=== PATIENT | male | born 1960 | race Caucasian/White ===

== ENCOUNTER 2016-05-26 20:06 | Inpatient (IN) | payer OTHER ==
[2016-05-26 21:12] LABS: Hematocrit 44 % (42-52); Hemoglobin 14.6 g/dl (14.0-18.0); Mean Corpuscular HGB Conc 33 g/dl (31-36); Mean Corpuscular Hemoglobin 32 pg (27-31); Mean Corpuscular Volume 96 fL (80-94); Mean Platelet Volume 9 um3 (7.4-10.4); Red Blood Count 4.54 10^6/ul (4.0-5.4); Red Cell Distribution Width 14 % (10.5-15); White Blood Count 11.5 10^3/ul (3.5-10.8)
[2016-05-26] MEDS ORDERED: Morphine INJ* 2 MG/ML 1 ML CARPUJECT IV PRN (21:13)
[2016-05-26] MEDS ORDERED: Albuterol 2.5 MG/3 ML NEB.SOL* (0.083%) INH PRN (21:13)
[2016-05-26] MEDS ORDERED: Ondansetron INJ* 2 MG/ML VIAL IV PRN (21:13)
[2016-05-26] MEDS ORDERED: Melatonin (NF) 3 MG TAB PO PRN (21:13)
[2016-05-26 21:15] LABS: Comments Flag Yes
[2016-05-26] MEDS ORDERED: NS 0.9% 1000 ML* 1,000 ML IV SCH (21:15)
[2016-05-26 21:16] LABS: Add Diff/Slide Review? Slide Review Added
[2016-05-26 21:27] LABS: Albumin 4.2 g/dL (3.2-5.2); BUN/Creatinine Ratio 35.3 (8-20); Calcium 9.9 mg/dL (8.6-10.3); EGFR African American 62.5 (>60); EGFR Non-African American 48.6 (>60); Globulin 3.6 g/dL (2-4); Potassium 4.2 mmol/L (3.5-5.0); Total Protein 7.8 g/dL (6.4-8.9)
[2016-05-26 21:28] LABS: Troponin I 0.01 ng/mL (<0.04)
--- NOTE | 2016-05-26 22:02 | RAD ---
INDICATION: Short of breath COMPARISON: March 25, 2015 TECHNIQUE: An AP portable view obtained at 2127 hours is submitted. FINDINGS: Bones/Soft Tissues: There are no acute bony findings. Cardiomediastinal: The cardiac silhouette is top normal in size. Lungs: There are no infiltrates. Mild chronic interstitial changes. Pleura: There are no pleural effusions. Other: None IMPRESSION: NO ACTIVE DISEASE.
--- NOTE | 2016-05-26 22:05 | HP ---
H&P (Free Text) History and Physical: PCP: Ted Do MD Date/Time of Evaluation: 05/26/2016 CC: chest pain HPI: Mr Cordon is a 55YO male HX HTN, HLD, DM2, dilated cardiomyopathy, & AFIB who reports working on a ladder last evening using pipe wrenches. He did not feel like he pulled a muscle, overworked, or injured himself. However, last night he experienced severe 20 out of 10 L shoulder and arm pain which kept him up all night despite taking extra doses of his pain medications. Today he has had intermittent dull to sharpish chest pain sometimes substernally, sometimes R -sided. The pain in his L shoulder has persisted and is tremendously worse with any ROM of the L shoulder which is currently very limited. This pain has been radiating into the L chest. Additionally over the past 2 days he has had some SOB and nausea, but he is uncertain if this relates to the chest or shoulder pain. ED evaluation is notable for stable vitals, stable stage 3a CKD, an interval increase in BUN from a baseline in the mid- to high 30s to 53 currently, a lactic acid of 2.6 which appears to be his baseline, a troponin of 0.01, and a BNP of 169. ECG is AFIB rate [address]-T segments in the anterior leads for loss of upwards concavity. However, I doubt this is actually ACS given his continuous L arm pain of ~25h duration and no elevation in troponin. CXR PMedHx dilated cardiomyopathy pericarditis AFIB on warfarin COPD DM2 NEAL on CPAP HTN CKD stg 3a HLD seronegative RA alcohol abuse Allergies Milk Protein Extract [From Spiriva] Adverse Reaction (Mild, Verified 03/25/15 11 :32) lightheaded Tiotropium [From Spiriva] Adverse Reaction (Mild, Verified 03/25/15 11:32) lightheaded Ambulatory Orders Albuterol/Ipratropium INH(NF) [Combivent Inhaler*] 2 puff INH QID 01/21/12 Aliskiren TAB* [Tekturna TAB*] 150 mg PO QAM 01/21/12 Fluticasone NASAL * [Flonase (NF)] 2 spray BOTH NARES DAILY 01/21/12 Folic Acid TAB* [Folvite TAB*] 1 mg PO DAILY 01/21/12 Methotrexate TAB* 15 mg PO WEEKLY 01/21/12 Metolazone TAB* [Zaroxolyn TAB*] 2.5 mg PO DAILY 01/21/12 Metoprolol Tartrate TAB* [Lopressor TAB*] 100 mg PO BID 01/21/12 cloNIDine TAB* [Catapres TAB*] 0.3 mg PO TID 01/21/12 metFORMIN* [Glucophage 500 MG TAB *] 1,000 mg PO BID 01/21/12 Acetaminophen TAB* [Tylenol TAB*] 325 mg PO Q6H PRN 09/30/14 Adalimumab (NF) [Humira Pen (NF)] 40 mg SUBCUT Q14D 09/30/14 Fluticasone HFA 110 mcg(NF) [Flovent HFA 110 mcg(NF)] 2 puff INH BID 09/30/14 Furosemide TAB* [Lasix TAB*] 80 mg PO DAILY 09/30/14 Glimepiride (NF) 4 mg PO BID 09/30/14 Simvastatin TAB(NF) [Zocor 20 MG (NF)] 20 mg PO BEDTIME 09/30/14 Spironolactone TAB* [Aldactone TAB 25 MG*] 50 mg PO BID 09/30/14 Warfarin TAB(*) [Coumadin TAB(*)] 3.75 mg PO SUMOTUTHFRSA 09/30/14 Warfarin TAB(*) [Coumadin TAB(*)] 7.5 mg PO WE 09/30/14 amLODIPine TAB* [Norvasc TAB*] 10 mg PO DAILY 09/30/14 guaiFENesin ER TAB [Mucinex*] 600 mg PO BID 09/30/14 hydrALAZINE TAB* [Apresoline TAB*] 25 mg PO TID 09/30/14 zzInsulin GLARGINE(*) [Lantus(*)] 150 units SUBCUT BEDTIME 09/30/14 Fexofenadine (NF) [Jasmyn (NF)] 60 mg PO BID 05/26/16 Hydroxychloroquine TAB* [Plaquenil TAB*] 200 mg PO BID 05/26/16 Lorazepam [Ativan 0.5 MG TAB] 0.5 mg PO Q6HR PRN 05/26/16 Magnesium Oxide [Magnesium Oxide-] 400 mg PO BID 05/26/16 Mometasone 220 MCG MDI * [Asmanex 220 MCG MDI *] 1 puff INH BID 05/26/16 Oxycodone IR 10 MG(NF) 10 mg PO Q6HR 05/26/16 Polyethylene Glycol 3350* [Miralax*] 17 gm PO DAILY 05/26/16 Triamcinolone 0.1% CREAM (NF) [Kenalog 0.1% Cream (NF)] 1 applic TOPICAL BID 01/02 SocHx: former smoker quit ~10years ago w/ ~70PYHX, rare alcohol now formerly a heavy drinker, no recreational drugs; lives with friends; full code status FamHx: positive for DM & CAD ROS: as above, otherwise reviewed and all were negative Constitutional: NAD, normally developed, morbidly obese white male vitals: Vital Signs Temp 35.5 C 05/26/16 20:09 Pulse 96 05/26/16 21:04 Resp 19 05/26/16 21:04 BP 141/66 05/26/16 21:04 Pulse Ox 96 05/26/16 21:04 Intake & Output 05/25/16 05/26/16 05/26/16 23:59 11:59 23:59 Weight 144.242 kg HEENM: atraumatic; sclera/conjunctiva: non-icteric/clear; hearing: clinically intact; oropharynx: clear, mucosa moist Neck: soft tissue: non-tender; thyroid: normal Pulmonary: clear to auscultation bilaterally, fair aeration, no accessory muscle use CV: RR/RR, normal S1S2, no carotid bruit, no jugular venous distention, 2+ symmetric B radial pulses, non-palpable B DP/PT, no edema, B hand capillary refill is <2 seconds Abdominal: soft, non-distended but protuberant, non-tender, no rebound/guarding/ rigidity, normoactive bowel sounds, no hepatosplenomegaly or masses, no costovertebral angle tenderness Musculoskeletal: general: grossly intact; gait: stable; L shoulder with nearly no ROM 2nd severe pain, no overt deformity Integumental: L mid-forearm distally including hand has blanching erythma without warmth, induration, or open wound Psychiatric orientation: AA&O to PPS affect: mildly anxious mixed with pain mood: cooperative eye contact: good content: reliable responses: timely insight: fair Testing: Lab Results 05/26/16 05/26/16 05/26/16 Range/Units 21:00 21:00 21:00 WBC 11.5 H (3.5-10.8) 10^3/ul RBC 4.54 (4.0-5.4) 10^6/ul Hgb 14.6 (14.0-18.0) g/dl Hct 44 (42-52) % MCV 96 H (80-94) fL MCH 32 H (27-31) pg MCHC 33 (31-36) g/dl RDW 14 (10.5-15) % Plt Count 187 (150-450) 10^3/ul MPV 9 (7.4-10.4) um3 Neut % (Auto) 73.8 (38-83) % Lymph % (Auto) 9.6 L (25-47) % Real % (Auto) 15.0 H (1-9) % Eos % (Auto) 0.8 (0-6) % Baso % (Auto) 0.8 (0-2) % Absolute Neuts (auto) 8.5 H (1.5-7.7) 10^3/ul Absolute Lymphs (auto) 1.1 (1.0-4.8) 10^3/ul Absolute Monos (auto) 1.7 H (0-0.8) 10^3/ul Absolute Eos (auto) 0.1 (0-0.6) 10^3/ul Absolute Basos (auto) 0.1 (0-0.2) 10^3/ul Absolute Nucleated RBC 0.01 10^3/ul Nucleated RBC % 0 INR (Anticoag Therapy) 3.43 H (0.89-1.11) APTT 42.2 H (26.0-36.3) seconds Sodium 131 L (133-145) mmol/L Potassium 4.2 (3.5-5.0) mmol/L Chloride 96 L (101-111) mmol/L Carbon Dioxide 26 (22-32) mmol/L Anion Gap 9 (2-11) mmol/L BUN 53 H (6-24) mg/dL Creatinine 1.50 H (0.67-1.17) mg/dL Est GFR ( Amer) 62.5 (>60) Est GFR (Non-Af Amer) 48.6 (>60) BUN/Creatinine Ratio 35.3 H (8-20) Glucose 259 H (70-100) mg/dL Lactic Acid (0.5-2.0) mmol/L Calcium 9.9 (8.6-10.3) mg/dL Total Bilirubin 1.00 (0.2-1.0) mg/dL AST 13 (13-39) U/L ALT 19 (7-52) U/L Alkaline Phosphatase 48 (34-104) U/L Troponin I 0.01 (<0.04) ng/mL B-Natriuretic Peptide ( - 100) pg/mL Total Protein 7.8 (6.4-8.9) g/dL Albumin 4.2 (3.2-5.2) g/dL Globulin 3.6 (2-4) g/dL Albumin/Globulin Ratio 1.2 (1-3) 05/26/16 05/26/16 Range/Units 21:00 21:00 WBC (3.5-10.8) 10^3/ul RBC (4.0-5.4) 10^6/ul Hgb (14.0-18.0) g/dl Hct (42-52) % MCV (80-94) fL MCH (27-31) pg MCHC (31-36) g/dl RDW (10.5-15) % Plt Count (150-450) 10^3/ul MPV (7.4-10.4) um3 Neut % (Auto) (38-83) % Lymph % (Auto) (25-47) % Real % (Auto) (1-9) % Eos % (Auto) (0-6) % Baso % (Auto) (0-2) % Absolute Neuts (auto) (1.5-7.7) 10^3/ul Absolute Lymphs (auto) (1.0-4.8) 10^3/ul Absolute Monos (auto) (0-0.8) 10^3/ul Absolute Eos (auto) (0-0.6) 10^3/ul Absolute Basos (auto) (0-0.2) 10^3/ul Absolute Nucleated RBC 10^3/ul Nucleated RBC % INR (Anticoag Therapy) (0.89-1.11) APTT (26.0-36.3) seconds Sodium (133-145) mmol/L Potassium (3.5-5.0) mmol/L Chloride (101-111) mmol/L Carbon Dioxide (22-32) mmol/L Anion Gap (2-11) mmol/L BUN (6-24) mg/dL Creatinine (0.67-1.17) mg/dL Est GFR ( Amer) (>60) Est GFR (Non-Af Amer) (>60) BUN/Creatinine Ratio (8-20) Glucose (70-100) mg/dL Lactic Acid 2.6 H* (0.5-2.0) mmol/L Calcium (8.6-10.3) mg/dL Total Bilirubin (0.2-1.0) mg/dL AST (13-39) U/L ALT (7-52) U/L Alkaline Phosphatase (34-104) U/L Troponin I (<0.04) ng/mL B-Natriuretic Peptide 169 H ( - 100) pg/mL Total Protein (6.4-8.9) g/dL Albumin (3.2-5.2) g/dL Globulin (2-4) g/dL Albumin/Globulin Ratio (1-3) ECG, personally reviewed: AFIB rate [address]-T segments in the anterior leads for loss of upwards concavity CXR, personally reviewed: IMPRESSION: NO ACTIVE DISEASE. Impression: 55M presenting with chest pain for r/o ACS DIAGNOSIS & PLAN Primary chest pain r/o ACS : telemetry : trend troponin : aspirin : no beta dimitrios 2nd significant COPD & low clinical suspicion of ACS : chemical NST in AM : supplemental oxygen : supportive care concern for infection in RUE, possibly shoulder : trend WBCs & lactic acid : hold methotrexate & adalimumab : blood CX : monitor clinically : consider imaging in AM if pain & poor ROM persists : RUE neurovascularly intact warfarin toxicity : hold until INR therapeutic : daily INR Secondary dilated cardiomyopathy : continue spironolactone, furosemide, & metolazone AFIB : hold warfarin as above COPD : albuterol/ipratropium nebs : mometasone/salmeterol : continue guaifenesin : incentive spirometry DM2 : insulin carb ratio diet : basal /correctional protocol while NPO, add bolus when taking PO : hold metformin : continue glimepiride : check A1c NEAL : continue home CPAP HTN : continue aliskiren, metoprolol, amlodipine, clonidine, & hydralazine HLD : continue simvastatin seronegative RA : continue hydroxychloroquine Admission Rational: observation for r/o ACS DVTp: warfarin to restart once INR down to therapeutic Code Status: full
--- NOTE | 2016-05-26 22:44 | ED ---
Roman Husain Matthew, scribed for Darinel Galvan on 05/26/16 at 2030 . HPI Chest Pain - HPI Summary HPI Summary: A 55 y/o male presents to the ED with intermittent right sided chest pain since 3 days ago. Yesterday at 24:00 the patient began to develop left arm pain that' s rated 9/10 in severity. Associated symptoms include SOB, nausea, and pedal edema that's worse on the left. The patient denies vomiting and dizziness. 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 The patient was working on piping during the day before the arm pain began. He has a Hx of diabetes and HTN. The patient's seen a de icer kit assembler in the past and was started a water pill. No Hx of stress tests. He's on Warfarin. - History of Current Complaint Chief Complaint: EDChestPainROMI Time Seen by Provider: 05/26/16 20:24 Hx Obtained From: Patient Onset/Duration: Started Days Ago, Atraumatic, Still Present Timing: Intermittent Initial Severity: Moderate Current Severity: Moderate Pain Intensity: 9 Pain Scale Used: 0-10 Numeric Chest Pain Location: Right Lateral Associated Signs and Symptoms: Positive: Chest Pain, Shortness of Breath, Nausea , Other: - Left arm pain, pedal edema thats worse on the left. Negative: Dizziness, Vomiting - Additional Pertinent History Primary Care Physician: MARIIA - Allergy/Home Medications Allergies/Adverse Reactions: Allergies Allergy/AdvReac Type Severity Reaction Status Date / Time Milk Protein Extract AdvReac Mild lightheaded Verified 03/25/15 11:32 [From Spiriva] Tiotropium [From Spiriva] AdvReac Mild lightheaded Verified 03/25/15 11:32 Home Medications: Home Medications Fexofenadine (NF) [Jasmyn (NF)] 60 mg PO BID 05/26/16 [History Confirmed ] Hydroxychloroquine TAB* [Plaquenil TAB*] 200 mg PO BID 05/26/16 [History Confirmed 05/26/16] Lorazepam [Ativan 0.5 MG TAB] 0.5 mg PO Q6HR PRN 05/26/16 [History Confirmed 01/02] Magnesium Oxide [Magnesium Oxide-] 400 mg PO BID 05/26/16 [History Confirmed 01/02] Mometasone 220 MCG MDI * [Asmanex 220 MCG MDI *] 1 puff INH BID 05/26/16 [ History Confirmed 05/26/16] Oxycodone IR 10 MG(NF) 10 mg PO Q6HR 05/26/16 [History Confirmed 05/26/16] Polyethylene Glycol 3350* [Miralax*] 17 gm PO DAILY 05/26/16 [History Confirmed 05/26/16] Triamcinolone 0.1% CREAM (NF) [Kenalog 0.1% Cream (NF)] 1 applic TOPICAL BID 01/02 [History Confirmed 05/26/16] PMH/Surg Hx/FS Hx/Imm Hx Endocrine/Hematology History: Reports: Hx Anticoagulant Therapy, Hx Diabetes Denies: Hx Anemia, Hx Unexplained Bleeding Cardiovascular History: Reports: Hx Hypercholesterolemia, Hx Hypertension, Other Cardiovascular Problems/Disorders - HX PERICARDIAL EFFUSION Denies: Hx Aneurysm, Hx Angina, Hx Angioplasty, Hx Auto Implanted Cardiovert Defib, Hx Cardiac Arrest, Hx Cardiomegaly, Hx Congenital Heart Disease, Hx Congestive Heart Failure, Hx Coronary Artery Disease, Hx Deep Vein Thrombosis, Hx Embolism, Hx Hypotension, Hx Pacemaker/ICD, Hx Peripheral Vascular Disease, Hx Rheumatic Fever, Hx Syncope, Hx Valvular Heart Disease Respiratory History: Reports: Hx Asthma, Hx Chronic Obstructive Pulmonary Disease (COPD), Hx Pneumonia, Hx Sleep Apnea Denies: Hx Chronic Bronchitis, Hx Cystic Fibrosis, Hx Lung Cancer, Hx Pleural Effusion, Hx Pulmonary Edema, Hx Pulmonary Embolism, Hx Seasonal Allergies, Other Respiratory Problems/Disorders GI History: Reports: Other GI Disorders - hx fatty liver History: Reports: Hx Acute Renal Failure, Other Problems/Disorders - hx Proteinuria Denies: Hx Benign Prostatic Hyperplasia, Hx Chronic Renal Failure, Hx Dialysis, Hx Kidney Infection, Hx Kidney Stones Musculoskeletal History: Reports: Hx Arthritis, Hx Orthopedic Injury Denies: Hx Back Problems, Hx Bursitis, Hx Congenital Bone Abnormalities, Hx Fibromyalgia, Hx Gout, Hx Osteoporosis, Hx Scoliosis, Hx Tendonitis Sensory History: Reports: Hx Contacts or Glasses, Hx Vision Problem Denies: Hx Cataracts, Hx Eye Injury, Hx Eye Prosthesis, Hx Glaucoma, Hx Legally Blind, Hx Macular Degeneration, Hx Deafness, Hx Hearing Aid, Hx Hearing Problem, Other Sensory Impairments Opthamlomology History: Reports: Hx Contacts or Glasses, Hx Vision Problem Denies: Hx Cataracts, Hx Eye Injury, Hx Eye Prosthesis, Hx Glaucoma, Hx Legally Blind, Hx Macular Degeneration, Other Sensory Impairments Psychiatric History: Denies: Hx Anxiety, Hx Attention Deficit Hyperactivity Disorder, Hx Eating Disorder, Hx Depression, Hx Panic Disorder, Hx Post Traumatic Stress Disorder, Hx Inpatient Treatment, Hx Community Mental Health Tx, Hx Schizophrenia, Hx Bipolar Disorder, Hx Suicide Attempt, Hx of Violent Episodes Against Others, Hx Substance Abuse, Other Psychiatric Issues/Disorders - Cancer History Hx Chemotherapy: No Hx Radiation Therapy: No Hx Palliative Cancer Treatment: No - Surgical History Surgery Procedure, Year, and Place: L ankle surg w/screws Hx Anesthesia Reactions: No Infectious Disease History: No Infectious Disease History: Denies: Hx Clostridium Difficile, Hx Hepatitis, Hx Human Immunodeficiency Virus (HIV), Hx of Known/Suspected MRSA, Hx Shingles, Hx Tuberculosis, Hx Known/ Suspected VRE, Hx Known/Suspected VRSA, History Other Infectious Disease, Traveled Outside the in Last 30 Days - Family History Known Family History: Positive: Cardiac Disease, Diabetes - Social History Alcohol Use: Weekly Alcohol Amount: 2 mixed drinks 4-5 times weekly Substance Use Type: Reports: None Smoking Status (MU): Former Smoker Type: Cigarettes Amount Used/How Often: 1-3 ppd Length of Time of Smoking/Using Tobacco: 28 Review of Systems Constitutional: Negative Eyes: Negative ENT: Negative Positive: Chest Pain - intermittent Positive: Shortness Of Breath Positive: Nausea. Negative: Vomiting Genitourinary: Negative Positive: Myalgia - left arm pain Skin: Negative Neurological: Negative - NO dizziness Psychological: Normal All Other Systems Reviewed And Are Negative: Yes Physical Exam Triage Information Reviewed: Yes Vital Signs On Initial Exam: Initial Vitals Temp Pulse Resp BP Pulse Ox 96 F 96 24 159/80 98 05/26/16 20:09 05/26/16 20:09 05/26/16 20:09 05/26/16 20:09 05/26/16 20:09 Vital Signs Reviewed: Yes Appearance: Positive: Well-Appearing Skin: Positive: Warm, Skin Color Reflects Adequate Perfusion, Dry Head/Face: Positive: Normal Head/Face Inspection Eyes: Positive: EOMI, MICHELLE ENT: Positive: Normal ENT inspection Neck: Positive: Supple, Nontender Respiratory/Lung Sounds: Positive: Clear to Auscultation, Breath Sounds Present Cardiovascular: Positive: Pulses are Symmetrical in both Upper and Lower Extremities, IRR Abdomen Description: Positive: Nontender, Soft Bowel Sounds: Positive: Present Musculoskeletal: Positive: Other - Left shoulder tenderness; mild pedal edema Neurological: Positive: Normal, Sensory/Motor Intact, Alert, Oriented to Person Place, Time Psychiatric: Positive: Normal Diagnostics - Vital Signs Vital Signs Temp Pulse Resp BP Pulse Ox 05/26/16 20:09 96 F 96 24 159/80 98 - Laboratory Lab Results: Lab Results 05/26/16 05/26/16 05/26/16 Range/Units 21:00 21:00 21:00 WBC 11.5 H (3.5-10.8) 10^3/ul RBC 4.54 (4.0-5.4) 10^6/ul Hgb 14.6 (14.0-18.0) g/dl Hct 44 (42-52) % MCV 96 H (80-94) fL MCH 32 H (27-31) pg MCHC 33 (31-36) g/dl RDW 14 (10.5-15) % Plt Count 187 (150-450) 10^3/ul MPV 9 (7.4-10.4) um3 Neut % (Auto) 73.8 (38-83) % Lymph % (Auto) 9.6 L (25-47) % Harvey % (Auto) 15.0 H (1-9) % Eos % (Auto) 0.8 (0-6) % Baso % (Auto) 0.8 (0-2) % Absolute Neuts (auto) 8.5 H (1.5-7.7) 10^3/ul Absolute Lymphs (auto) 1.1 (1.0-4.8) 10^3/ul Absolute Monos (auto) 1.7 H (0-0.8) 10^3/ul Absolute Eos (auto) 0.1 (0-0.6) 10^3/ul Absolute Basos (auto) 0.1 (0-0.2) 10^3/ul Absolute Nucleated RBC 0.01 10^3/ul Nucleated RBC % 0 INR (Anticoag Therapy) 3.43 H (0.89-1.11) APTT 42.2 H (26.0-36.3) seconds Sodium 131 L (133-145) mmol/L Potassium 4.2 (3.5-5.0) mmol/L Chloride 96 L (101-111) mmol/L Carbon Dioxide 26 (22-32) mmol/L Anion Gap 9 (2-11) mmol/L BUN 53 H (6-24) mg/dL Creatinine 1.50 H (0.67-1.17) mg/dL Est GFR ( Amer) 62.5 (>60) Est GFR (Non-Af Amer) 48.6 (>60) BUN/Creatinine Ratio 35.3 H (8-20) Glucose 259 H (70-100) mg/dL Lactic Acid (0.5-2.0) mmol/L Calcium 9.9 (8.6-10.3) mg/dL Total Bilirubin 1.00 (0.2-1.0) mg/dL AST 13 (13-39) U/L ALT 19 (7-52) U/L Alkaline Phosphatase 48 (34-104) U/L Troponin I 0.01 (<0.04) ng/mL B-Natriuretic Peptide ( - 100) pg/mL Total Protein 7.8 (6.4-8.9) g/dL Albumin 4.2 (3.2-5.2) g/dL Globulin 3.6 (2-4) g/dL Albumin/Globulin Ratio 1.2 (1-3) 05/26/16 05/26/16 Range/Units 21:00 21:00 WBC (3.5-10.8) 10^3/ul RBC (4.0-5.4) 10^6/ul Hgb (14.0-18.0) g/dl Hct (42-52) % MCV (80-94) fL MCH (27-31) pg MCHC (31-36) g/dl RDW (10.5-15) % Plt Count (150-450) 10^3/ul MPV (7.4-10.4) um3 Neut % (Auto) (38-83) % Lymph % (Auto) (25-47) % Harvey % (Auto) (1-9) % Eos % (Auto) (0-6) % Baso % (Auto) (0-2) % Absolute Neuts (auto) (1.5-7.7) 10^3/ul Absolute Lymphs (auto) (1.0-4.8) 10^3/ul Absolute Monos (auto) (0-0.8) 10^3/ul Absolute Eos (auto) (0-0.6) 10^3/ul Absolute Basos (auto) (0-0.2) 10^3/ul Absolute Nucleated RBC 10^3/ul Nucleated RBC % INR (Anticoag Therapy) (0.89-1.11) APTT (26.0-36.3) seconds Sodium (133-145) mmol/L Potassium (3.5-5.0) mmol/L Chloride (101-111) mmol/L Carbon Dioxide (22-32) mmol/L Anion Gap (2-11) mmol/L BUN (6-24) mg/dL Creatinine (0.67-1.17) mg/dL Est GFR ( Amer) (>60) Est GFR (Non-Af Amer) (>60) BUN/Creatinine Ratio (8-20) Glucose (70-100) mg/dL Lactic Acid 2.6 H* (0.5-2.0) mmol/L Calcium (8.6-10.3) mg/dL Total Bilirubin (0.2-1.0) mg/dL AST (13-39) U/L ALT (7-52) U/L Alkaline Phosphatase (34-104) U/L Troponin I (<0.04) ng/mL B-Natriuretic Peptide 169 H ( - 100) pg/mL Total Protein (6.4-8.9) g/dL Albumin (3.2-5.2) g/dL Globulin (2-4) g/dL Albumin/Globulin Ratio (1-3) Result Diagrams: 05/26/16 21:00 05/26/16 21:00 Lab Statement: Any lab studies that have been ordered have been reviewed, and results considered in the medical decision making process. - Radiology CXR Xray Interpretation: No Acute Changes - IMPRESSION: NO ACTIVE DISEASE. Radiology Interpretation Completed By: Radiologist - EKG 20:31 Cardiac Rate: NL - 94 bpm EKG Rhythm: Atrial Fibrillation ST Segment: Non-Specific Chest Pain Course/Dx - Course Assessment/Plan: A 55 y/o male presents to the ED with intermittent right sided chest pain since 3 days ago. Yesterday at 24:00 the patient began to develop left arm pain that's rated 9/10 in severity. Associated symptoms include SOB, nausea, and pedal edema that's worse on the left. Labs were reviewed and show a troponin of 0.01. XR are negative. EKG shows Afib at 94 bpm with non-specific ST changes. Discussed the case with Dr. Ybarra who will admit the patient into his services. - Chest Pain Differential Diagnosis/HQI/PQRI: Angina, Other: - Diagnoses Provider Diagnoses: Chest pain, Atrial fibrillation, Renal failure - Provider Notifications Discussed Care Of Patient With: Dr. Ybarra (Hospitalist) at 22:15 -- Notified of patient's history and will admit the patient into his services. Discharge - Discharge Plan Condition: Stable Disposition: ADMITTED TO [facility] Referrals: Torres Do MD [Primary Care Provider] - The documentation as recorded by the Roman louise Matthew accurately reflects the service I personally performed and the decisions made by , Darinel Galvan.
[2016-05-26] MEDS: HYDROmorphone INJ* 1 MG/ML CARPUJECT SYRINGE IV PRN (23:21)
[2016-05-26] MEDS ORDERED: Aspirin Low Dose CHEW TAB* 81 MG PO ONE (23:23)
[2016-05-27] MEDS: Insulin GLARGINE(*) 1 UNITS UNIT SUBCUT SCH ×2 (00:20→21:32)
[2016-05-27] MEDS: Insulin LISPRO* 1 UNITS UNIT SUBCUT SCH ×7 (00:34→21:30)
[2016-05-27] MEDS: oxyCODONE TAB* 5 MG TAB PO SCH ×5 (00:36→23:55)
[2016-05-27] MEDS: Albuterol/Ipratropium NEB.SOL* Albuterol 2.5 MG/Ipratropium 0.5 MG 3 ML INH SCH ×2 (00:58→07:25)
[2016-05-27] MEDS: HYDROmorphone INJ* 1 MG/ML CARPUJECT SYRINGE IV PRN ×2 (01:10→16:12)
[2016-05-27 05:46] LABS: Hematocrit 42 % (42-52); Hemoglobin 14.2 g/dl (14.0-18.0); Mean Corpuscular HGB Conc 33 g/dl (31-36); Mean Corpuscular Hemoglobin 32 pg (27-31); Mean Corpuscular Volume 96 fL (80-94); Mean Platelet Volume 10 um3 (7.4-10.4); Red Cell Distribution Width 15 % (10.5-15); White Blood Count 11.5 10^3/ul (3.5-10.8)
[2016-05-27 05:59] LABS: Troponin I 0.03 ng/mL (<0.04)
[2016-05-27 06:00] LABS: BUN/Creatinine Ratio 35.1 (8-20); Calcium 9.8 mg/dL (8.6-10.3); EGFR African American 73.1 (>60); EGFR Non-African American 56.8 (>60); Potassium 3.9 mmol/L (3.5-5.0)
[2016-05-27] MEDS ORDERED: Heparin VIAL(*) 5000 UNITS/ML VIAL (FIVE THOUSAND) SUBCUT SCH (06:00)
[2016-05-27 06:02] LABS: Comments Flag Yes
[2016-05-27] MEDS: Omeprazole CAP* 20 MG PO SCH (06:18)
[2016-05-27] MEDS: Mometasone/Formoter 200/5 MDI INH SCH ×2 (07:25→20:46)
[2016-05-27] MEDS: Aliskiren TAB* 150 MG PO SCH (08:09)
[2016-05-27] MEDS: cloNIDine TAB* 0.1 MG PO SCH ×3 (08:10→21:13)
[2016-05-27] MEDS: amLODIPine TAB* 5 MG PO SCH (08:10)
[2016-05-27] MEDS: Furosemide TAB* 40 MG PO SCH (08:11)
[2016-05-27] MEDS: Folic Acid TAB* 1 MG PO SCH (08:11)
[2016-05-27] MEDS: Docusate CAP* 100 MG PO SCH ×2 (08:11→21:12)
[2016-05-27] MEDS: CMCS Glimepiride (NF) 2 MG TAB PO SCH ×2 (08:12→21:16)
[2016-05-27] MEDS: guaiFENesin ER TAB 600 MG PO SCH ×2 (08:13→21:13)
[2016-05-27] MEDS: Hydroxychloroquine TAB* 200 MG PO SCH ×2 (08:13→21:15)
[2016-05-27] MEDS: Polyethylene Glycol 3350* 17 GM PACKET PO SCH (08:14)
[2016-05-27] MEDS: Metoprolol Tartrate TAB* 100 MG TAB PO SCH ×2 (08:14→21:13)
[2016-05-27] MEDS: Spironolactone TAB* 25 MG PO SCH ×2 (08:14→21:12)
[2016-05-27] MEDS: Metolazone TAB* 5 MG PO SCH (08:15)
[2016-05-27] MEDS ORDERED: Tiotropium CAP.INH* CAP.INH/18 MCG (USE ORDER SET !) INH SCH (09:00)
[2016-05-27] MEDS: Acetaminophen TAB* 325 MG PO PRN (16:11)
--- NOTE | 2016-05-27 17:29 | PN ---
Subjective Date of Service: 05/27/16 Interval History: HOSPITALIST PROGRESS NOTE Patient seen and examined at bedside. He denies chest pain, but still has left shoulder pain going down to his left elbow. Family History: Unchanged from Admission Social History: Unchanged from Admission Past Medical History: Unchanged from Admission Objective Active Medications: Acetaminophen (Tylenol Tab*) 650 mg PO Q6H PRN PRN Reason: FEVER/PAIN Last Admin: 05/27/16 16:11 Dose: 650 mg Albuterol (Ventolin 2.5 Mg/3 Ml Neb.Joanna*) 2.5 mg INH Q2H PRN PRN Reason: SOB/WHEEZING Aliskiren (Tekturna Tab*) 150 mg PO QAM [facility] Last Admin: 05/27/16 08:09 Dose: 150 mg Amlodipine Besylate (Norvasc Tab*) 10 mg PO DAILY [facility] Last Admin: 05/27/16 08:10 Dose: 10 mg Atorvastatin Calcium (Lipitor*) 10 mg PO BEDTIME [facility] Clonidine HCl (Catapres Tab*) 0.3 mg PO TID [facility] Last Admin: 05/27/16 12:53 Dose: 0.3 mg Docusate Sodium (Colace Cap*) 200 mg PO BID [facility] Last Admin: 05/27/16 08:11 Dose: 200 mg Folic Acid (Folvite Tab*) 1 mg PO DAILY [facility] Last Admin: 05/27/16 08:11 Dose: 1 mg Furosemide (Lasix Tab*) 80 mg PO DAILY [facility] Last Admin: 05/27/16 08:11 Dose: 80 mg Glimepiride (Glimepiride (Nf)) 4 mg PO BID [facility] PRN Reason: Protocol Last Admin: 05/27/16 08:12 Dose: 4 mg Guaifenesin (Mucinex*) 600 mg PO BID [facility] Last Admin: 05/27/16 08:13 Dose: 600 mg Hydromorphone HCl (Dilaudid Iv*) 1 mg IV Q2H PRN PRN Reason: PAIN Last Admin: 05/27/16 16:12 Dose: 1 mg Hydroxychloroquine Sulfate (Plaquenil Tab*) 200 mg PO BID [facility] Last Admin: 05/27/16 08:13 Dose: 200 mg Insulin Glargine (Lantus(*)) 100 units SUBCUT 2100 [facility] Last Admin: 05/27/16 00:20 Dose: 100 units Insulin Human Lispro (Humalog*) 0 units SUBCUT Q4H PANDA PRN Reason: Protocol Last Admin: 05/27/16 17:05 Dose: 6 units Lorazepam (Ativan Tab(*)) 0.5 mg PO Q6HR PRN PRN Reason: ANXIETY Melatonin (Melatonin (Nf)) 3 mg PO BEDTIME PRN; Protocol PRN Reason: Sleep Metolazone (Zaroxolyn Tab*) 2.5 mg PO DAILY [facility] Last Admin: 05/27/16 08:15 Dose: 2.5 mg Metoprolol Tartrate (Lopressor Tab*) 100 mg PO BID [facility] Last Admin: 05/27/16 08:14 Dose: 100 mg Mometasone Furoate/Formoterol Fumar (Dulera 200/5 Mdi*) 2 puff INH BID [facility] Last Admin: 05/27/16 07:25 Dose: 2 puff Omeprazole (Prilosec Cap*) 20 mg PO DAILY@0600 [facility] Last Admin: 05/27/16 06:18 Dose: 20 mg Ondansetron HCl (Zofran Inj*) 4 mg IV Q6H PRN PRN Reason: NAUSEA Oxycodone HCl (Roxycodone Tab*) 10 mg PO Q6HR [facility] Last Admin: 05/27/16 12:53 Dose: 10 mg Polyethylene Glycol/Electrolytes (Miralax*) 17 gm PO DAILY [facility] Last Admin: 05/27/16 08:14 Dose: 17 gm Spironolactone (Aldactone Tab*) 50 mg PO BID [facility] Last Admin: 05/27/16 08:14 Dose: 50 mg Vital Signs 05/27/16 05/27/16 05/27/16 12:53 15:45 16:12 Temperature 97.2 F Pulse Rate 55 Respiratory 17 16 Rate Blood Pressure 142/69 (mmHg) O2 Sat by Pulse 100 Oximetry Oxygen Devices in Use Now: None Appearance: Morbid obese male sitting up in bed in NAD. Eyes: No Scleral Icterus Ears/Nose/Mouth/Throat: Mucous Membranes Moist Neck: Trachea Midline Respiratory: Symmetrical Chest Expansion and Respiratory Effort, Clear to Auscultation Cardiovascular: RRR - Normal S1 and S2 Extremities: No Edema, - - No erythema to left arm. Limited ROM left shoulder secondary to pain. Neurological: Alert and Oriented x 3, NL Muscle Strength and Tone Lines/Tubes/Other Access: Clean, Dry and Intact Peripheral IV Nutrition: Taking PO's Result Diagrams: 05/27/16 05:02 05/27/16 05:02 Assess/Plan/Problems-Billing Assessment: Mr. Cordon is a 55yo M with PMH of morbid obesity, dilated CMP, pericarditis, Afib on AC, COPD, type 2 DM, NEAL on CPAP, HTN, CKD stage 3, HLD, RA, prior h/o alcohol abuse, who presented to ED with c/o chest and left shoulder pain. - Patient Problems (1) Chest pain Comment: - His chest pain appears to be musculoskeletal as his spent >1 hour working with his arms above his head and developed left shoulder pain radiating to his chest, but he does have risk factors for CAD. - EKG showed no acute ischemic changes and serial troponins are negative. - For stress test 05/29/16. (2) Left shoulder pain Comment: - Likely musculoskeletal due to exertion yesterday. - Continue pain management and warm packs. - Patient is immunossupressed on MTX and Humira, but no signs of infection at this time. (3) Atrial fibrillation Comment: - Rate is controlled. - Continue Metorpolol and resume Warfarin. (4) Dilated cardiomyopathy Comment: - Patient states he was discharged from Cardiology 3 years ago. - Records from [place]. - Continue Aliskiren, Furosemide, Metolazone, and Spironolactone. (5) COPD (chronic obstructive pulmonary disease) Comment: - Stable. - Continue bronchodilators and inhaled steroids. (6) Type 2 diabetes mellitus Comment: - A1c is 8.8 despite hefty regimen. - Continue glimepiride, Lantus, and Lispro SS. - Metformin on hold. (7) HTN (hypertension) Comment: - Continue Aliskiren, Metoprolol, diuretics, Amlodipine, clonidine, . (8) CKD (chronic kidney disease) stage 3, GFR 30-59 ml/min Comment: - Renal function is stable. (9) Morbid obesity Comment: - Refer to [facility] on discharge. (10) DVT prophylaxis Comment: - Warfarin. (11) Full code status Status and Disposition: Change to inpatient to continue his cardiac w/u.
[2016-05-27] MEDS: Warfarin TAB(*) 2.5 MG PO SCH (18:06)
[2016-05-27] MEDS ORDERED: Insulin GLARGINE(*) 1 UNITS UNIT SUBCUT SCH (21:00)
[2016-05-27] MEDS: Atorvastatin* 10 MG TAB PO SCH (21:13)
[2016-05-28] MEDS: oxyCODONE TAB* 5 MG TAB PO SCH ×4 (05:49→23:23)
[2016-05-28] MEDS: Omeprazole CAP* 20 MG PO SCH (05:49)
[2016-05-28 06:06] LABS: BUN/Creatinine Ratio 36.6 (8-20); Calcium 9.8 mg/dL (8.6-10.3); EGFR African American 87.5 (>60); EGFR Non-African American 68.1 (>60); Potassium 3.8 mmol/L (3.5-5.0)
[2016-05-28] MEDS: Spironolactone TAB* 25 MG PO SCH ×2 (08:19→20:48)
[2016-05-28] MEDS: Aspirin EC Low Dose* 81 MG TAB.EC PO SCH (08:20)
[2016-05-28] MEDS: Metolazone TAB* 5 MG PO SCH (08:20)
[2016-05-28] MEDS: amLODIPine TAB* 5 MG PO SCH (08:21)
[2016-05-28] MEDS: guaiFENesin ER TAB 600 MG PO SCH ×2 (08:21→20:47)
[2016-05-28] MEDS: Furosemide TAB* 40 MG PO SCH (08:21)
[2016-05-28] MEDS: Folic Acid TAB* 1 MG PO SCH (08:22)
[2016-05-28] MEDS: cloNIDine TAB* 0.1 MG PO SCH ×2 (08:22→13:56)
[2016-05-28] MEDS: Insulin LISPRO* 1 UNITS UNIT SUBCUT SCH ×4 (08:22→20:50)
[2016-05-28] MEDS: Docusate CAP* 100 MG PO SCH ×2 (08:22→20:48)
[2016-05-28] MEDS: Metoprolol Tartrate TAB* 100 MG TAB PO SCH (08:22)
[2016-05-28] MEDS: Polyethylene Glycol 3350* 17 GM PACKET PO SCH (08:22)
[2016-05-28] MEDS: Aliskiren TAB* 150 MG PO SCH (08:23)
[2016-05-28] MEDS: CMCS Glimepiride (NF) 2 MG TAB PO SCH (08:24)
[2016-05-28] MEDS: Hydroxychloroquine TAB* 200 MG PO SCH ×2 (08:24→20:47)
[2016-05-28] MEDS: Mometasone/Formoter 200/5 MDI INH SCH ×2 (08:33→21:47)
[2016-05-28] MEDS: Acetaminophen TAB* 325 MG PO PRN (08:36)
[2016-05-28] MEDS ORDERED: cloNIDine TAB* 0.1 MG PO SCH (15:52)
[2016-05-28] MEDS ORDERED: Metoprolol Tartrate TAB* 100 MG TAB PO SCH (15:52)
--- NOTE | 2016-05-28 15:55 | PN ---
Subjective Date of Service: 05/28/16 Interval History: HOSPITALIST PROGRESS NOTE Patient seen and examined at bedside. His left shoulder is much better today, with improved ROM. No further episode of UE erythema or chest pain. Family History: Unchanged from Admission Social History: Unchanged from Admission Past Medical History: Unchanged from Admission Objective Active Medications: Acetaminophen (Tylenol Tab*) 650 mg PO Q6H PRN PRN Reason: FEVER/PAIN Last Admin: 05/28/16 08:36 Dose: 650 mg Albuterol (Ventolin 2.5 Mg/3 Ml Neb.Joanna*) 2.5 mg INH Q2H PRN PRN Reason: SOB/WHEEZING Aliskiren (Tekturna Tab*) 150 mg PO QAM [facility] Amlodipine Besylate (Norvasc Tab*) 10 mg PO DAILY [facility] Aspirin (Aspirin Ec Low Dose*) 81 mg PO DAILY [facility] Last Admin: 05/28/16 08:20 Dose: 81 mg Atorvastatin Calcium (Lipitor*) 10 mg PO BEDTIME [facility] Last Admin: 05/27/16 21:13 Dose: 10 mg Clonidine HCl (Catapres Tab*) 0.3 mg PO TID PANDA Stop: 05/28/16 21:00 Docusate Sodium (Colace Cap*) 200 mg PO BID [facility] Last Admin: 05/28/16 08:22 Dose: 200 mg Folic Acid (Folvite Tab*) 1 mg PO DAILY [facility] Last Admin: 05/28/16 08:22 Dose: 1 mg Furosemide (Lasix Tab*) 80 mg PO DAILY [facility] Glimepiride (Glimepiride (Nf)) 4 mg PO BID [facility] PRN Reason: Protocol Stop: 05/28/16 19:00 Last Admin: 05/28/16 08:24 Dose: 4 mg Guaifenesin (Mucinex*) 600 mg PO BID [facility] Last Admin: 05/28/16 08:21 Dose: 600 mg Hydromorphone HCl (Dilaudid Iv*) 1 mg IV Q2H PRN PRN Reason: PAIN Last Admin: 05/27/16 16:12 Dose: 1 mg Hydroxychloroquine Sulfate (Plaquenil Tab*) 200 mg PO BID [facility] Last Admin: 05/28/16 08:24 Dose: 200 mg Insulin Glargine (Lantus(*)) 50 units SUBCUT 2100 [facility] Insulin Human Lispro (Humalog*) 0 units SUBCUT ACHS PANDA PRN Reason: Protocol Last Admin: 05/28/16 12:42 Dose: 6 units Lorazepam (Ativan Tab(*)) 0.5 mg PO Q6HR PRN PRN Reason: ANXIETY Melatonin (Melatonin (Nf)) 3 mg PO BEDTIME PRN; Protocol PRN Reason: Sleep Metolazone (Zaroxolyn Tab*) 2.5 mg PO DAILY [facility] Metoprolol Tartrate (Lopressor Tab*) 100 mg PO BID [facility] Stop: 05/28/16 21:00 Mometasone Furoate/Formoterol Fumar (Dulera 200/5 Mdi*) 2 puff INH BID [facility] Last Admin: 05/28/16 08:33 Dose: 2 puff Omeprazole (Prilosec Cap*) 20 mg PO DAILY@0600 [facility] Last Admin: 05/28/16 05:49 Dose: 20 mg Ondansetron HCl (Zofran Inj*) 4 mg IV Q6H PRN PRN Reason: NAUSEA Oxycodone HCl (Roxycodone Tab*) 10 mg PO Q6HR [facility] Last Admin: 05/28/16 12:43 Dose: 10 mg Polyethylene Glycol/Electrolytes (Miralax*) 17 gm PO DAILY [facility] Last Admin: 05/28/16 08:22 Dose: 17 gm Spironolactone (Aldactone Tab*) 50 mg PO BID [facility] Warfarin Sodium (Coumadin Tab(*)) 3.75 mg PO DAILY@1700 [facility] PRN Reason: Protocol Last Admin: 05/27/16 18:06 Dose: 3.75 mg Vital Signs 05/28/16 05/28/16 05/28/16 11:22 12:43 13:39 Temperature 97.8 F 97.7 F Pulse Rate 60 53 Respiratory 16 20 Rate Blood Pressure 98/73 111/65 (mmHg) O2 Sat by Pulse 98 98 Oximetry Oxygen Devices in Use Now: None Appearance: Middle aged obese male sitting up in bed in [facility]. Eyes: No Scleral Icterus Ears/Nose/Mouth/Throat: Mucous Membranes Moist Neck: Trachea Midline Respiratory: Symmetrical Chest Expansion and Respiratory Effort, Clear to Auscultation Cardiovascular: RRR - Normal S1 and S2 Extremities: - - No LUE erythema or edema Neurological: Alert and Oriented x 3, NL Muscle Strength and Tone Lines/Tubes/Other Access: Clean, Dry and Intact Peripheral IV Nutrition: Taking PO's Result Diagrams: 05/27/16 05:02 05/28/16 05:31 Assess/Plan/Problems-Billing Assessment: Mr. Cordon is a 55yo M with PMH of morbid obesity, dilated CMP, pericarditis, Afib on AC, COPD, type 2 DM, NEAL on CPAP, HTN, CKD stage 3, HLD, RA, prior h/o alcohol abuse, who presented to ED with c/o chest and left shoulder pain. - Patient Problems (1) Chest pain Comment: - His chest pain appears to be musculoskeletal as his spent >1 hour working with his arms above his head and developed left shoulder pain radiating to his chest, but he does have risk factors for CAD. - EKG showed no acute ischemic changes and serial troponins are negative. - For stress test 05/29/16. (2) Left shoulder pain Comment: - Likely musculoskeletal due to exertion yesterday. - Continue pain management and warm packs. - Patient is immunossupressed on MTX and Humira, but no signs of infection at this time. (3) Atrial fibrillation Comment: - Rate is controlled. - Continue Metorpolol and resume Warfarin. (4) Dilated cardiomyopathy Comment: - Patient states he was discharged from Cardiology 3 years ago. - Records from [place]. - Continue Aliskiren, Furosemide, Metolazone, and Spironolactone. (5) COPD (chronic obstructive pulmonary disease) Comment: - Stable. - Continue bronchodilators and inhaled steroids. (6) Type 2 diabetes mellitus Comment: - A1c is 8.8 despite hefty regimen. - Continue glimepiride, Lantus, and Lispro SS. - Metformin on hold. - Diabetes evaluation. (7) HTN (hypertension) Comment: - Continue Aliskiren, Metoprolol, diuretics, Amlodipine, clonidine, . (8) CKD (chronic kidney disease) stage 3, GFR 30-59 ml/min Comment: - Renal function is stable. (9) Morbid obesity Comment: - Refer to [facility] on discharge. (10) DVT prophylaxis Comment: - Warfarin. (11) Full code status Status and Disposition: Inpatient.
[2016-05-28] MEDS: Warfarin TAB(*) 2.5 MG PO SCH (18:04)
[2016-05-28] MEDS: Atorvastatin* 10 MG TAB PO SCH (20:40)
[2016-05-28] MEDS: HYDROmorphone INJ* 1 MG/ML CARPUJECT SYRINGE IV PRN (20:43)
[2016-05-28] MEDS ORDERED: Insulin GLARGINE(*) 1 UNITS UNIT SUBCUT SCH (21:00)
[2016-05-29] MEDS: Omeprazole CAP* 20 MG PO SCH (06:04)
[2016-05-29] MEDS: oxyCODONE TAB* 5 MG TAB PO SCH ×3 (06:04→17:40)
[2016-05-29] MEDS: HYDROmorphone INJ* 1 MG/ML CARPUJECT SYRINGE IV PRN ×3 (06:10→20:29)
[2016-05-29] MEDS: Mometasone/Formoter 200/5 MDI INH SCH ×2 (08:27→20:05)
[2016-05-29] MEDS: Metolazone TAB* 5 MG PO SCH (08:52)
[2016-05-29] MEDS: Docusate CAP* 100 MG PO SCH ×2 (08:52→20:27)
[2016-05-29] MEDS: Folic Acid TAB* 1 MG PO SCH (08:52)
[2016-05-29] MEDS: Spironolactone TAB* 25 MG PO SCH ×2 (08:53→21:01)
[2016-05-29] MEDS: Hydroxychloroquine TAB* 200 MG PO SCH ×2 (08:53→20:27)
[2016-05-29] MEDS: guaiFENesin ER TAB 600 MG PO SCH ×2 (08:53→20:28)
[2016-05-29] MEDS: Aliskiren TAB* 150 MG PO SCH (08:53)
[2016-05-29] MEDS: Aspirin EC Low Dose* 81 MG TAB.EC PO SCH (08:53)
[2016-05-29] MEDS: Furosemide TAB* 40 MG PO SCH (08:53)
[2016-05-29] MEDS: amLODIPine TAB* 5 MG PO SCH (08:53)
[2016-05-29] MEDS: Insulin LISPRO* 1 UNITS UNIT SUBCUT SCH ×4 (08:56→20:34)
[2016-05-29] MEDS: Polyethylene Glycol 3350* 17 GM PACKET PO SCH (13:49)
[2016-05-29] MEDS ORDERED: Regadenoson* 0.4 MG/5 ML SYRINGE ONE (14:06)
[2016-05-29] MEDS: Warfarin TAB(*) 2.5 MG PO SCH (17:41)
--- NOTE | 2016-05-29 18:16 | PN ---
Subjective Date of Service: 05/29/16 Interval History: HOSPITALIST PROGRESS NOTE Patient seen and examined at bedside. Shoulder pain is much improved. Still has twinges of chest pain, but overall feels improved. Family History: Unchanged from Admission Social History: Unchanged from Admission Past Medical History: Unchanged from Admission Objective Active Medications: Acetaminophen (Tylenol Tab*) 650 mg PO Q6H PRN PRN Reason: FEVER/PAIN Last Admin: 05/28/16 08:36 Dose: 650 mg Albuterol (Ventolin 2.5 Mg/3 Ml Neb.Joanna*) 2.5 mg INH Q2H PRN PRN Reason: SOB/WHEEZING Aliskiren (Tekturna Tab*) 150 mg PO QAM [facility] Last Admin: 05/29/16 08:53 Dose: 150 mg Amlodipine Besylate (Norvasc Tab*) 10 mg PO DAILY [facility] Last Admin: 05/29/16 08:53 Dose: 10 mg Aspirin (Aspirin Ec Low Dose*) 81 mg PO DAILY [facility] Last Admin: 05/29/16 08:53 Dose: 81 mg Atorvastatin Calcium (Lipitor*) 10 mg PO BEDTIME [facility] Last Admin: 05/28/16 20:40 Dose: 10 mg Docusate Sodium (Colace Cap*) 200 mg PO BID [facility] Last Admin: 05/29/16 08:52 Dose: 200 mg Folic Acid (Folvite Tab*) 1 mg PO DAILY [facility] Last Admin: 05/29/16 08:52 Dose: 1 mg Furosemide (Lasix Tab*) 80 mg PO DAILY [facility] Last Admin: 05/29/16 08:53 Dose: 80 mg Glimepiride (Glimepiride (Nf)) 4 mg PO BID [facility] PRN Reason: Protocol Guaifenesin (Mucinex*) 600 mg PO BID [facility] Last Admin: 05/29/16 08:53 Dose: 600 mg Hydromorphone HCl (Dilaudid Iv*) 1 mg IV Q2H PRN PRN Reason: PAIN Last Admin: 05/29/16 15:22 Dose: 1 mg Hydroxychloroquine Sulfate (Plaquenil Tab*) 200 mg PO BID [facility] Last Admin: 05/29/16 08:53 Dose: 200 mg Insulin Glargine (Lantus(*)) 100 units SUBCUT 2100 [facility] Insulin Human Lispro (Humalog*) 0 units SUBCUT ACHS [facility] PRN Reason: Protocol Last Admin: 05/29/16 17:40 Dose: 15 units Lorazepam (Ativan Tab(*)) 0.5 mg PO Q6HR PRN PRN Reason: ANXIETY Melatonin (Melatonin (Nf)) 3 mg PO BEDTIME PRN; Protocol PRN Reason: Sleep Metolazone (Zaroxolyn Tab*) 2.5 mg PO DAILY [facility] Last Admin: 05/29/16 08:52 Dose: 2.5 mg Mometasone Furoate/Formoterol Fumar (Dulera 200/5 Mdi*) 2 puff INH BID [facility] Last Admin: 05/29/16 08:27 Dose: 2 puff Omeprazole (Prilosec Cap*) 20 mg PO DAILY@0600 [facility] Last Admin: 05/29/16 06:04 Dose: 20 mg Ondansetron HCl (Zofran Inj*) 4 mg IV Q6H PRN PRN Reason: NAUSEA Oxycodone HCl (Roxycodone Tab*) 10 mg PO Q6HR [facility] Last Admin: 05/29/16 17:40 Dose: 10 mg Polyethylene Glycol/Electrolytes (Miralax*) 17 gm PO DAILY [facility] Last Admin: 05/29/16 13:49 Dose: 17 gm Spironolactone (Aldactone Tab*) 50 mg PO BID [facility] Last Admin: 05/29/16 08:53 Dose: 50 mg Warfarin Sodium (Coumadin Tab(*)) 3.75 mg PO DAILY@1700 [facility] PRN Reason: Protocol Last Admin: 05/29/16 17:41 Dose: 3.75 mg Vital Signs 05/29/16 05/29/16 05/29/16 11:20 13:48 15:01 Temperature 98.0 F Pulse Rate 72 96 Respiratory 17 Rate Blood Pressure 152/87 147/99 (mmHg) O2 Sat by Pulse 97 100 Oximetry Oxygen Devices in Use Now: None Appearance: Morbid obese male sitting up in bed in NAD. Eyes: No Scleral Icterus Ears/Nose/Mouth/Throat: Mucous Membranes Moist Neck: Trachea Midline Respiratory: Symmetrical Chest Expansion and Respiratory Effort, Clear to Auscultation Cardiovascular: RRR - Normal S1 and S2 Neurological: Alert and Oriented x 3, NL Muscle Strength and Tone Lines/Tubes/Other Access: Clean, Dry and Intact Peripheral IV Nutrition: Taking PO's Result Diagrams: 05/27/16 05:02 05/28/16 05:31 Assess/Plan/Problems-Billing Assessment: Mr. Cordon is a 55yo M with PMH of morbid obesity, dilated CMP, pericarditis, Afib on AC, COPD, type 2 DM, NEAL on CPAP, HTN, CKD stage 3, HLD, RA, prior h/o alcohol abuse, who presented to ED with c/o chest and left shoulder pain. - Patient Problems (1) Chest pain Comment: - His chest pain appears to be musculoskeletal as his spent >1 hour working with his arms above his head and developed left shoulder pain radiating to his chest, but he does have risk factors for CAD. - EKG showed no acute ischemic changes and serial troponins are negative. - For second part stress test 05/30/16. (2) Left shoulder pain Comment: - Likely musculoskeletal due to exertion yesterday. - Continue pain management and warm packs. - Patient is immunossupressed on MTX and Humira, but no signs of infection at this time. (3) Atrial fibrillation Comment: - Rate is controlled. - Continue Metorpolol and Warfarin. (4) Dilated cardiomyopathy Comment: - Patient states he was discharged from Cardiology 3 years ago. - Records from [place]. - Continue Aliskiren, Furosemide, Metolazone, and Spironolactone. (5) COPD (chronic obstructive pulmonary disease) Comment: - Stable. - Continue bronchodilators and inhaled steroids. (6) Type 2 diabetes mellitus Comment: - A1c is 8.8 despite hefty regimen. - Continue glimepiride, Lantus, and Lispro SS. - Metformin on hold. - Diabetes evaluation. (7) HTN (hypertension) Comment: - Continue Aliskiren, Metoprolol, diuretics, Amlodipine, clonidine. (8) CKD (chronic kidney disease) stage 3, GFR 30-59 ml/min Comment: - Renal function is stable. (9) Morbid obesity Comment: - Refer to [facility] on discharge. (10) DVT prophylaxis Comment: - Warfarin. (11) Full code status Status and Disposition: Inpatient.
[2016-05-29] MEDS: Atorvastatin* 10 MG TAB PO SCH (20:28)
[2016-05-29] MEDS ORDERED: Insulin GLARGINE(*) 1 UNITS UNIT SUBCUT SCH (21:00)
[2016-05-29] MEDS: CMCS: Glimepiride (NF) 2 MG TAB PO SCH (21:01)
[2016-05-30] MEDS: oxyCODONE TAB* 5 MG TAB PO SCH ×3 (01:57→12:56)
[2016-05-30] MEDS: Omeprazole CAP* 20 MG PO SCH (05:19)
[2016-05-30] MEDS: HYDROmorphone INJ* 1 MG/ML CARPUJECT SYRINGE IV PRN (05:25)
[2016-05-30] MEDS: LORazepam TAB(*) 0.5 MG PO PRN ×2 (05:26→15:16)
[2016-05-30 08:25] VITALS: BP 176/80
[2016-05-30] MEDS: Insulin LISPRO* 1 UNITS UNIT SUBCUT SCH ×3 (08:25→17:02)
[2016-05-30] MEDS: Aliskiren TAB* 150 MG PO SCH (08:26)
[2016-05-30] MEDS: Furosemide TAB* 40 MG PO SCH (08:27)
[2016-05-30] MEDS: Aspirin EC Low Dose* 81 MG TAB.EC PO SCH (08:27)
[2016-05-30] MEDS: amLODIPine TAB* 5 MG PO SCH (08:27)
[2016-05-30] MEDS: Folic Acid TAB* 1 MG PO SCH (08:27)
[2016-05-30] MEDS: Docusate CAP* 100 MG PO SCH (08:27)
[2016-05-30] MEDS: Hydroxychloroquine TAB* 200 MG PO SCH (08:28)
[2016-05-30] MEDS: CMCS: Glimepiride (NF) 2 MG TAB PO SCH (08:28)
[2016-05-30] MEDS: guaiFENesin ER TAB 600 MG PO SCH (08:28)
[2016-05-30] MEDS: Metolazone TAB* 5 MG PO SCH (08:32)
[2016-05-30] MEDS: Polyethylene Glycol 3350* 17 GM PACKET PO SCH (08:33)
[2016-05-30] MEDS: Spironolactone TAB* 25 MG PO SCH (08:34)
[2016-05-30] MEDS: Mometasone/Formoter 200/5 MDI INH SCH (09:42)
[2016-05-30] MEDS ORDERED: Metoprolol Tartrate TAB* 100 MG TAB PO ONE (16:54)
[2016-05-30] MEDS: Warfarin TAB(*) 2.5 MG PO SCH (17:00)
--- NOTE | 2016-05-30 22:04 | CONS ---
CARDIOLOGY CONSULTATION: DATE OF CONSULT: 05/30/16 INDICATION FOR CONSULTATION: Chest pain, mildly abnormal stress test. HISTORY OF PRESENT ILLNESS: The patient is a 55-year-old gentleman with multiple medical problems who was admitted to the hospital with severe arm and hip pain. The patient states that he was at home. He was working on pipes around his house. He was doing a lot of work over his head. That night, he went to bed and had severe left arm pain. He says left arm also appeared red to him. The patient took multiple pain medications throughout the night, slept poorly that night. The next day, he was out doing errands. He came home, sat down in a chair, and started having left arm pain and severe left hip pain. The patient was still uncomfortable that he could not get himself out of the chair and decided to come to the emergency room. On arrival to the emergency room, he stated that his pain at home was 10/10 in his left shoulder. The patient was admitted to the hospital. He ruled out for myocardial infarction. His troponin levels were not abnormal. The patient does have underlying abnormal EKG. He has chronic atrial fibrillation with nonspecific ST-T wave abnormalities. The patient has a history of mildly dilated cardiomyopathy; chronic atrial fibrillation; COPD; diabetes; obstructive sleep apnea, on CPAP; hypertension; kidney disease. OUTPATIENT MEDICATIONS: Include: 1. Folic acid. 2. Methotrexate 15 mg weekly. 3. Metolazone 2.5 mg a day. 4. Metoprolol tartrate 100 mg b.i.d. 5. Clonidine 0.3 mg 3 times a day. 6. Metformin as directed. 7. Flovent inhaler. 8. Lasix 80 mg a day. 9. Glyburide 4 mg b.i.d. 10. Simvastatin 20 mg a day. 11. Spironolactone 25 mg a day. 12. Coumadin as directed. 13. Amlodipine 10 mg a day. 14. Guaifenesin 600 mg twice a day. 15. Hydralazine 25 mg 3 times a day. 16. Insulin as directed. 17. Plaquenil 200 mg b.i.d. 18. Magnesium tablets. 19. Oxycodone. ALLERGIES: Allergies to MILK PROTEIN. FAMILY HISTORY: Positive for diabetes and coronary artery disease. SOCIAL HISTORY: He is a previous smoker. He quit 10 years ago. He was a heavy smoker. Rare alcohol now, but used to be a heavy alcohol use. He lives with friends. PHYSICAL EXAM: Height is 5 feet 9 inches, weight is 300 pounds, heart rate is 87 and irregular, temperature 97.9, blood pressure 176/80, oxygen saturation 99 % on 2 L. Sclerae anicteric. Oropharynx is pink without erythema. Carotids are 2+ without bruits. JVD is difficult to assess given his size. Cardiac Exam : Irregular S1, S2 without any murmurs, rubs, or gallops. Lungs have decreased breath sounds throughout. There is no rhonchi or wheezes. There is no dullness to percussion. Abdomen is obese, soft, nontender, nondistended with normoactive bowel sounds. Extremities show 1+ nonpitting edema. He has 2+ pulses on his dorsalis pedis and popliteal. The patient is awake, alert, and oriented. He moves all 4 extremities equally. DIAGNOSTIC STUDIES/LAB DATA: CBC within normal limits. Chemistries within normal limits. BUN 41, creatinine 1.1. Troponins were negative x3. BNP was only minimally elevated at 169. EKG demonstrates atrial fibrillation with ST-T wave abnormalities. The patient underwent a chemical nuclear stress test which demonstrates a small area of moderate ischemia to his anterior wall. His LV function was normal. His TID is minimally abnormal at 1.19. IMPRESSION: A 55-year-old gentleman with history of chronic obstructive pulmonary disease, chronic atrial fibrillation, diabetes who is admitted to the hospital with severe left arm pain. His left arm pain is more consistent with musculoskeletal abnormality. He had the pain for greater than 25 hours. It was severe, 10/10 arm pain and when he arrived at the emergency room, his troponin level was 0.02. In general, I do not think any of his pain was cardiac in origin. Again, his stress test is mildly abnormal. At this point, I do not think any further cardiac workup is necessary. The patient will follow up with a proofer prepress as an outpatient either through my office or through the [facility]. The patient is already on multiple cardiac medications. At this point, I do not think any medication changes are necessary. The case was discussed with Dr. Conteh. CC: Dr. Torres Do, [facility]; Dr. Darby Conteh; Dr. Santillan, Rheumatology, [facility]* [id number]/[facility] #: [id number] [place]
--- NOTE | 2016-05-31 04:11 | DS ---
DISCHARGE SUMMARY: DATE OF ADMISSION: 05/26/16 DATE OF DISCHARGE: 05/30/16 PRIMARY CARE PROVIDER: Dr. Do. CONSULTING DIRECTOR RETIREMENT: Dr. Carmen. MY ATTENDING PHYSICIAN WHILE IN THE HOSPITAL: Dr. Darby Conteh* (report being dictated by Mook Ng NP). Discharge is against medical advice. PRINCIPAL DIAGNOSES: Include: 1. Chest pain. 2. Abnormal stress test. SECONDARY DIAGNOSES: Include: 1. Dilated cardiomyopathy. 2. Pericarditis. 3. Atrial fibrillation. 4. Chronic obstructive pulmonary disease. 5. Diabetes. 6. Obstructive sleep apnea. 7. Hypertension. 8. Chronic kidney disease, stage 3. 9. Hyperlipidemia. 10. Rheumatoid arthritis. 11. History of EtOH abuse. DISCHARGE MEDICATIONS: Include: 1. New medication, aspirin 81 mg daily. 2. Hydralazine 25 mg p.o. t.i.d. 3. Tylenol 325 mg p.o. every 6 hours as needed. 4. Magnesium 400 mg p.o. b.i.d. 5. Ativan 0.5 mg every 6 hours as needed. 6. Fexofenadine 60 mg p.o. b.i.d. 7. MiraLAX 17 g p.o. daily. 8. Oxycodone IR 10 mg p.o. every 6 hours as needed. 9. Asmanex 1 puff inhaled b.i.d. 10. Plaquenil 200 mg p.o. b.i.d. 11. Triamcinolone cream 1 application topically b.i.d. 12. Tekturna 150 mg p.o. q.a.m. 13. Combivent 2 puffs inhaled four times a day. 14. Ana 40 mg subcu every 14 days. 15. Glimepiride 4 mg p.o. b.i.d. 16. Lasix 80 mg daily. 17. Folic acid 1 tablet daily. 18. Flonase 2 sprays both nares daily. 19. Flovent 2 puffs inhaled b.i.d. 20. Metoprolol 100 mg p.o. b.i.d. 21. Zaroxolyn 2.5 mg daily. 22. Methotrexate 15 mg p.o. weekly. 23. Warfarin 7.5 mg on Sunday. 24. Warfarin 3.75 mg p.o. Sunday, Sunday, Sunday, , Sunday, Sunday. 25. Aldactone 50 mg p.o. b.i.d. 26. Zocor 20 mg p.o. bedtime. 27. Mucinex 600 mg p.o. b.i.d. 28. Catapres 0.3 mg p.o. t.i.d. 29. Norvasc 10 mg p.o. daily. 30. Metformin 1000 mg p.o. b.i.d. 31. Lantus 150 units subcu bedtime. HISTORY OF PRESENT ILLNESS AND HOSPITAL COURSE: I refer you to Dr. Ybarra' s H and P dictated on the for details. In short, Mr. Cordon is a 55-year -old male patient with multiple medical problems, who came into the hospital on the night of the with complaints of chest discomfort. 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 He felt like he had pulled a muscle over work and injured himself. The night prior to coming in, he had left shoulder pain and arm pain which kept him up on all night despite taking extra pain medication. Today, on admission, he had intermittent dull, sharp, chest pain, sometimes substernally, sometimes right sided. Pain persisted tremendously. It was worse with any range of motion of the left shoulder and he came into the hospital. He also last couple of days prior to admission had some shortness of breath as well as nausea. He was evaluated here, there was concern for the chest pain. The patient was admitted for workup because of his significant history. He was admitted on Sunday, unfortunately stress testing was unavailable over the weekend. He was kept and stress test was started on Sunday but he needed 2-day stress test which he underwent today. He underwent the stress test today. There was a small area of ischemia on the anterior wall. Cardiology was consulted and it was felt that the chest pain he had was most likely musculoskeletal related and that he could be discharged and followed up with closely with Dr. Carmen or studio control operator from [facility]. Unfortunately, when I went to go discharge the patient, it was noted that he was tachycardic at 120. His face was very red. He had beads of sweat polling and I asked him if he was feeling short of breath, he said yes. He denied chest pain. He said he had been getting up, walking around his room, getting ready for discharge and this made him short of breath. I asked him if he had been feeling this way the last few weeks, he said yes. At this point, I explained to him that I thought that and I also reviewed with my attending, we felt that it was safer to keep him here for further evaluation, getting the heart rate under control because he appeared to be in AFib with RVR, but despite this he said that he wanted to get out of here. He is anxious that he has to go home and plow as we are having a bad blizzard currently. He wanted to get out to home and plow to care of his driveway, which I instructed him that he should not do. He said he needed to care for one of his friends. Again, I instructed him that he should not do this and he said that he wanted to go home, and I also instructed him it is most likely not safe for road passage, but he said he had a ride already here and he wanted to leave. He said that if he has any symptoms of chest pain , shortness of breath, or if he was feeling worse, he would come back to the hospital. I instructed him the risk of leaving against medical advice included but not limited to , [place], permanent disability but he was willing to accept these risks. He was of sound mind to make a decision and he wanted to leave AMA. STATUS DURING HOSPITALIZATION: Inpatient. STATUS AT DISCHARGE: Again, AMA. PHYSICAL EXAMINATION ON DISCHARGE: Reveals vital signs of blood pressure of 176 /80 with the pulse of 118, respirations 16, his O2 sat 96%, temperature 97.9. General: At this time, Mr. Cordon is a 55-year-old male patient. He appears to be older than the stated age. He does appear to be again diaphoretic at this point and he is tachycardic. HEENT: Head atraumatic. Eyes: Sclerae are anicteric. Throat: Oral mucosa appeared to moist. No oropharyngeal erythema. Neck: Supple. His lungs were clear to auscultation bilaterally. Heart: Sounds S1, S2. Irregular rate and rhythm. His heart rate is right around 120. His abdomen was soft, flat, nontender. Extremities: Pulses were 2+. No peripheral edema. Neurologically, he is awake, alert, oriented x3. His skin was intact. DIAGNOSTIC STUDIES/LAB DATA AT DISCHARGE: Revealed a WBC of 11.5, RBC of 4.40, hemoglobin 14.2, hematocrit of 42, platelet count of 197. The INR at 2.73. Sodium was 135, potassium 3.8, chloride of 100, BUN 41, creatinine of 1.12, calcium 9.8. Troponins were again negative. Serology was negative for hepatitis C or HIV. The stress test was obtained and it did show findings suspicious for anterior wall ischemia, mildly enlarged chamber size. Again, Cardiology was consulted. He had an EKG obtained on the , showed atrial fibrillation rate of 71. No ST elevations or T-wave inversions were noted. He had a chest x-ray on admission, which revealed no active disease. ISSUES TO BE ADDRESSED ON FOLLOWUP: 1. Abnormal stress test. At this point, needs to follow up with Cardiology. Again, it was felt that the chest pain was not heart related, it was felt musculoskeletal but I do still think that he needs to be on aspirin. He is on a beta dimitrios and a statin, and continue his medications. 2. Diabetes. Continue his current medical regimen and follow with his primary. 3. Atrial fibrillation. Again, his rate was 120 at discharge. I did instruct I am giving him an extra dose of metoprolol and he is to follow closely with his primary. I want him to see his primary within 1 to 2 days and he is aware of this. 4. CKD, stage 3, stable. He can follow with his primary for this. 5. Hypertension. Continue p.o. meds as prescribed. Again, follow with the primary. 6. Rheumatoid arthritis. Continue his medications, appeared to be stable while he was here. 7. COPD. Continue his nebulizer treatments. 8. Dilated cardiomyopathy. Continue his meds as prescribed currently. He did not appear to be in any failure when he came in. 9. Hyperlipidemia. Continue statin therapy. Issues to return to the hospital include but are not limited to chest pain, shortness of breath, fevers, chills, tachycardia, nausea, vomiting, or any worrisome symptoms. TIME SPENT: On the discharge was approximately 40 minutes; greater than half the time was spent [id number] with the patient going over the discharge plan, the other half the time was spent implementing the discharge plan. I did discuss at length the risk of AMA discharge, the risk of , permanent disability, [place]. He is again willing to accept these risks. I discussed this with my attending, Dr. Conteh; she was in agreement that this patient should stay but again is of sound mind to sign out AMA. MOOK NG NP CC: Dr. Do; Dr. Carmen* [id number]/CPS #: [id number] MTDD
--- NOTE | 2016-05-31 09:40 | RAD ---
INDICATION: Chest pain COMPARISON: None TECHNIQUE: Rest images were acquired following the intravenous injection of 25.78 millicuries of technetium 99m tetrofosmin. Pharmacologic stress images were acquired following the intravenous administration of 26.28 millicuries of technetium 99m tetrofosmin. This examination is mildly limited due to patient size and due to the fact that CT attenuation images cannot be obtained due to patient condition (shoulder immobility) FINDINGS: There is mild decreased activity in the anterior wall which is suspicious for ischemia although is noted above this is a limited study. There are no additional apparent defects or stress-induced or fixed nature. The cardiac chamber size is mildly enlarged. There are no wall motion abnormalities. The ejection fraction is at the lower range of normal calculated at 53 percent during rest and 54 during stress. IMPRESSION: MILDLY LIMITED EXAMINATION. FINDINGS SUSPICIOUS FOR ANTERIOR WALL ISCHEMIA. MILDLY ENLARGED CHAMBER SIZE WITH LOW-NORMAL EJECTION FRACTION. ASSESSMENT: INTERMEDIATE RISK Based on imaging criteria from ACC/AHA 2002 Guideline Update for the Management of Patients With Chronic Stable Angina Table 23. Noninvasive Risk Stratification. Reference. HIGH-RISK (GREATER THAN 3% ANNUAL MORTALITY RATE) - Severe resting left ventricular dysfunction (LVEF < 35%) - Severe exercise left ventricular dysfunction (exercise LVEF < 35%) - Stress-induced large perfusion defect (particularly if anterior) - Stress-induced multiple perfusion defects of moderate size - Large, fixed perfusion defect with LV dilation or increased lung uptake (thallium-201) - Stress-induced moderate perfusion defect with LV dilation or increased lung uptake (thallium-201) INTERMEDIATE-RISK (1%-3% ANNUAL MORTALITY RATE) - Mild/moderate resting left ventricular dysfunction (LVEF = 35% to 49%) - Stress-induced moderate perfusion defect without LV dilation or increased lung intake (thallium-201) LOW-RISK (LESS THAN 1% ANNUAL MORTALITY RATE) - Normal or small myocardial perfusion defect at rest or with stress
== END 2016-05-30 17:30 | disposition left against medical advice (07) | DRG 203 ==
LOC: ED 20:06 → MEDTELE 23:53 → OBSVTOIN 05-27 10:06
PROVIDERS: ADMIT Hospitalist; ATTEND Internal Medicine
DX: R07.89 Other chest pain (principal); I42.0 Dilated cardiomyopathy; I31.9 Disease of pericardium, unspecified; E11.22 Type 2 diabetes mellitus with diabetic chronic kidney disease; Z68.41 Body mass index [BMI] 40.0-44.9, adult; I48.91 Unspecified atrial fibrillation; I12.9 Hypertensive chronic kidney disease with stage 1 through stage 4 chronic kidney disease, or unspecified chronic kidney disease; N18.3 Chronic kidney disease, stage 3 (moderate); E78.5 Hyperlipidemia, unspecified; M06.9 Rheumatoid arthritis, unspecified; F10.21 Alcohol dependence, in remission; R94.39 Abnormal result of other cardiovascular function study; G47.33 Obstructive sleep apnea (adult) (pediatric); Z99.89 Dependence on other enabling machines and devices; E66.01 Morbid (severe) obesity due to excess calories; J44.9 Chronic obstructive pulmonary disease, unspecified; J45.909 Unspecified asthma, uncomplicated; Z87.01 Personal history of pneumonia (recurrent); Z87.891 Personal history of nicotine dependence; Z79.01 Long term (current) use of anticoagulants; Z79.4 Long term (current) use of insulin; Z79.84 Long term (current) use of oral hypoglycemic drugs
CPT/HCPCS: 36415; 71010; 78452; 80048; 80053; 83036; 83605; 83880; 84484; 85025; 85610; 85730; 86703; 86803; 87040; 93005; 93017; 94640; 94760; 99221; 99406; A9270-GY; A9502; J1170; J2405; J2785

== ENCOUNTER 2016-05-30 22:42 | Observation (INO) | payer OTHER ==
[2016-05-30] MEDS ORDERED: NS 0.9% 1000 ML* 1,000 ML IV ONE (23:04)
[2016-05-30] MEDS ORDERED: HYDROmorphone* 1 MG/ML 1 ML SYR IV ONE (23:04)
[2016-05-30] MEDS ORDERED: Ondansetron INJ* 2 MG/ML VIAL IV ONE (23:04)
[2016-05-30 23:25] LABS: Hematocrit 47 % (42-52); Hemoglobin 15.7 g/dl (14.0-18.0); Mean Corpuscular HGB Conc 34 g/dl (31-36); Mean Corpuscular Hemoglobin 32 pg (27-31); Mean Corpuscular Volume 96 fL (80-94); Mean Platelet Volume 9 um3 (7.4-10.4); Red Cell Distribution Width 14 % (10.5-15); White Blood Count 10.3 10^3/ul (3.5-10.8)
[2016-05-30 23:38] LABS: Albumin 4.4 g/dL (3.2-5.2); BUN/Creatinine Ratio 23.7 (8-20); C Reactive Protein 19.63 mg/L (< 5.00); Calcium 10.6 mg/dL (8.6-10.3); EGFR Non-African American 28.8 (>60); Globulin 4.3 g/dL (2-4); Magnesium 1.8 mg/dL (1.9-2.7); Potassium 4.9 mmol/L (3.5-5.0); Total Bilirubin 0.8 mg/dL (0.2-1.0); Total Protein 8.7 g/dL (6.4-8.9)
[2016-05-30] MEDS ORDERED: Metoclopramide IV* 5 MG/ML 2 ML VIAL IV ONE (23:38)
[2016-05-30 23:39] LABS: Troponin I 0.03 ng/mL (<0.04)
--- NOTE | 2016-05-31 00:54 | HP ---
H&P (Free Text) History and Physical: PCP: Ted Do MD Date/Time of Evaluation: 05/31/2016 0045 CC: abdominal pain, N/V HPI: Mr Cordon is a 55YO male HX HTN, HLD, DM2, dilated cardiomyopathy, & AFIB who [place] [facility] [place] for musculoskeletal L arm pain & concern for ACS. He states he was discharged around 1700 05/30, but no discharge summary is yet available to review. He states "the packing machine feeder said I could go, but the other doctor didn't think that was a good idea, but I wanted to leave anyway." He states he ate supper here and the left arriving home. He denies doing anything unusual, but began feeling worse gradually developing epigastric & LUQ abdominal pain associated with 2 episodes of emesis which he hasn't done in ~25years. He denies bloody or black content. He continues to have the same chest discomfort, but his L shoulder is better. Work up reveals stable vitals w/ increase variability in BP and an saO2 in the high-80s on RA. Labs reveal an CASTRO creatinine 2.36 (up from 1.12 05/28) & lactic acid of 3.2; otherwise labs are reasonably stable, specifically his lipase is normal. CT abd/pel WO is negative, specifically there is no AAA, obstructive uropathy, reggie-nephric or pancreatic inflammation. Evaluation for dissection is incomplete 2nd lack of contrast contraindicated by his CASTRO. CXR shows linear atelectasis L base & cardiomegaly, otherwise negative. ECG is AFIB rate 85, no ischemia, similar to 05/26/2016. PMedHx dilated cardiomyopathy pericarditis AFIB on warfarin COPD DM2 NEAL on CPAP HTN CKD stg 3a HLD seronegative RA alcohol abuse Allergies Milk Protein Extract [From Spiriva] Adverse Reaction (Mild, Verified 03/25/15 11 :32) lightheaded Tiotropium [From Spiriva] Adverse Reaction (Mild, Verified 03/25/15 11:32) lightheaded Ambulatory Orders Nursing to reconcile. Albuterol/Ipratropium INH(NF) [Combivent Inhaler(NF)] 2 puff INH QID 01/21/12 Aliskiren TAB* [Tekturna TAB*] 150 mg PO QAM 01/21/12 Fluticasone NASAL * [Flonase *] 2 spray BOTH NARES DAILY 01/21/12 Folic Acid TAB* [Folvite TAB*] 1 mg PO DAILY 01/21/12 Methotrexate TAB* 15 mg PO WEEKLY 01/21/12 Metolazone TAB* [Zaroxolyn TAB*] 2.5 mg PO DAILY 01/21/12 Metoprolol Tartrate TAB* [Lopressor TAB*] 100 mg PO BID 01/21/12 cloNIDine TAB* [Catapres 0.1 MG TAB*] 0.3 mg PO TID 01/21/12 metFORMIN* [Glucophage 500 MG TAB *] 1,000 mg PO BID 01/21/12 Acetaminophen TAB* [Tylenol TAB*] 325 mg PO Q6H PRN 09/30/14 Adalimumab (NF) [Humira Pen (NF)] 40 mg SUBCUT WEEKLY 09/30/14 Fluticasone HFA 110 mcg(NF) [Flovent HFA 110 mcg(NF)] 2 puff INH BID 09/30/14 Furosemide TAB* [Lasix TAB*] 80 mg PO DAILY 09/30/14 Simvastatin TAB(NF) [Zocor 20 MG (NF)] 20 mg PO BEDTIME 09/30/14 Spironolactone TAB* [Aldactone TAB 25 MG*] 50 mg PO BID 09/30/14 Warfarin TAB(*) [Coumadin TAB(*)] 3.75 mg PO SUMOTUTHFRSA 09/30/14 Warfarin TAB(*) [Coumadin TAB(*)] 7.5 mg PO WE 09/30/14 amLODIPine TAB* [Norvasc TAB*] 10 mg PO DAILY 09/30/14 guaiFENesin ER TAB [Mucinex*] 600 mg PO BID 09/30/14 zzInsulin GLARGINE(*) [zzLantus(*)] 150 units SUBCUT BEDTIME 09/30/14 Fexofenadine (NF) [Jasmyn (NF)] 60 mg PO BID 05/26/16 Hydroxychloroquine TAB* [Plaquenil TAB*] 200 mg PO BID 05/26/16 Lorazepam [Ativan 0.5 MG TAB] 0.5 mg PO Q6HR PRN 05/26/16 Magnesium Oxide [Magnesium Oxide-] 400 mg PO BID 05/26/16 Mometasone 220 MCG MDI * [Asmanex 220 MCG MDI *] 1 puff INH BID 05/26/16 Oxycodone IR 10 MG(NF) 10 mg PO Q6HR 05/26/16 Polyethylene Glycol 3350* [Miralax*] 17 gm PO DAILY 05/26/16 Triamcinolone 0.1% CREAM (NF) [Kenalog 0.1% Cream (NF)] 1 applic TOPICAL BID 01/02 Aspirin EC Low Dose* [Ecotrin EC Low Dose 81 MG*] 81 mg PO DAILY tab.ec Glimepiride (NF) 4 mg PO BID tab 05/30/16 SocHx: former smoker quit ~10years ago w/ ~70PYHX, rare alcohol now formerly a heavy drinker, no recreational drugs; lives with friends; full code status FamHx: positive for DM & CAD ROS: as above, otherwise reviewed and all were negative Constitutional: NAD, normally developed, morbidly obese white male vitals: Vital Signs Temp 36.9 C 05/30/16 22:53 Pulse 80 05/31/16 01:00 Resp 21 05/31/16 01:00 BP 159/62 05/31/16 01:00 Pulse Ox 97 05/31/16 01:00 Intake & Output 05/30/16 05/30/16 05/31/16 11:59 23:59 11:59 Intake Total 1002 52 Balance 1002 52 Weight 136.078 kg Intake: IV Fluids 1002 52 HEENM: atraumatic; sclera/conjunctiva: non-icteric/clear; hearing: clinically intact; oropharynx: clear, mucosa moist Neck: soft tissue: non-tender; thyroid: normal Pulmonary: clear to auscultation bilaterally, fair aeration, no accessory muscle use CV: RR/RR, normal S1S2, no carotid bruit, no jugular venous distention, non- palpable B DP/PT, no edema Abdominal: soft, non-distended but protuberant, mild to moderately tender in the epigastrum & LUQ w/o rebound/guarding/rigidity, hypoactive bowel sounds, no hepatosplenomegaly or masses palpable, no costovertebral angle tenderness Musculoskeletal: general: grossly intact; gait: stable Integumental: face flushed (states this isn't unusual) Psychiatric orientation: AA&O to PPS affect: uncomfortable mood: cooperative eye contact: fair content: reliable responses: timely insight: fair Testing: Lab Results 05/30/16 05/30/16 05/30/16 Range/Units 23:10 23:10 23:10 WBC 10.3 (3.5-10.8) 10^3/ul RBC 4.90 (4.0-5.4) 10^6/ul Hgb 15.7 (14.0-18.0) g/dl Hct 47 (42-52) % MCV 96 H (80-94) fL MCH 32 H (27-31) pg MCHC 34 (31-36) g/dl RDW 14 (10.5-15) % Plt Count 264 (150-450) 10^3/ul MPV 9 (7.4-10.4) um3 Neut % (Auto) 86.5 H (38-83) % Lymph % (Auto) 5.9 L (25-47) % [place] % (Auto) 6.7 (1-9) % Eos % (Auto) 0.3 (0-6) % Baso % (Auto) 0.6 (0-2) % Absolute Neuts (auto) 8.9 H (1.5-7.7) 10^3/ul Absolute Lymphs (auto) 0.6 L (1.0-4.8) 10^3/ul Absolute Monos (auto) 0.7 (0-0.8) 10^3/ul Absolute Eos (auto) 0 (0-0.6) 10^3/ul Absolute Basos (auto) 0.1 (0-0.2) 10^3/ul Absolute Nucleated RBC 0.01 10^3/ul Nucleated RBC % 0.1 INR (Anticoag Therapy) (0.89-1.11) Sodium 133 (133-145) mmol/L Potassium 4.9 (3.5-5.0) mmol/L Chloride 96 L (101-111) mmol/L Carbon Dioxide 24 (22-32) mmol/L Anion Gap 13 H (2-11) mmol/L BUN 56 H (6-24) mg/dL Creatinine 2.36 H (0.67-1.17) mg/dL Est GFR ( Amer) 37.0 (>60) Est GFR (Non-Af Amer) 28.8 (>60) BUN/Creatinine Ratio 23.7 H (8-20) Glucose 330 H (70-100) mg/dL Lactic Acid 3.2 H* (0.5-2.0) mmol/L Calcium 10.6 H (8.6-10.3) mg/dL Magnesium 1.8 L (1.9-2.7) mg/dL Total Bilirubin 0.80 (0.2-1.0) mg/dL AST 14 (13-39) U/L ALT 21 (7-52) U/L Alkaline Phosphatase 54 (34-104) U/L Troponin I 0.03 (<0.04) ng/mL C-Reactive Protein 19.63 H (< 5.00) mg/L B-Natriuretic Peptide ( - 100) pg/mL Total Protein 8.7 (6.4-8.9) g/dL Albumin 4.4 (3.2-5.2) g/dL Globulin 4.3 H (2-4) g/dL Albumin/Globulin Ratio 1.0 (1-3) Amylase 70 (29-103) U/L Lipase 33 (11.0-82.0) U/L 05/30/16 05/30/16 Range/Units 23:10 23:10 WBC (3.5-10.8) 10^3/ul RBC (4.0-5.4) 10^6/ul Hgb (14.0-18.0) g/dl Hct (42-52) % MCV (80-94) fL MCH (27-31) pg MCHC (31-36) g/dl RDW (10.5-15) % Plt Count (150-450) 10^3/ul MPV (7.4-10.4) um3 Neut % (Auto) (38-83) % Lymph % (Auto) (25-47) % [place] % (Auto) (1-9) % Eos % (Auto) (0-6) % Baso % (Auto) (0-2) % Absolute Neuts (auto) (1.5-7.7) 10^3/ul Absolute Lymphs (auto) (1.0-4.8) 10^3/ul Absolute Monos (auto) (0-0.8) 10^3/ul Absolute Eos (auto) (0-0.6) 10^3/ul Absolute Basos (auto) (0-0.2) 10^3/ul Absolute Nucleated RBC 10^3/ul Nucleated RBC % INR (Anticoag Therapy) 2.98 H (0.89-1.11) Sodium (133-145) mmol/L Potassium (3.5-5.0) mmol/L Chloride (101-111) mmol/L Carbon Dioxide (22-32) mmol/L Anion Gap (2-11) mmol/L BUN (6-24) mg/dL Creatinine (0.67-1.17) mg/dL Est GFR ( Amer) (>60) Est GFR (Non-Af Amer) (>60) BUN/Creatinine Ratio (8-20) Glucose (70-100) mg/dL Lactic Acid (0.5-2.0) mmol/L Calcium (8.6-10.3) mg/dL Magnesium (1.9-2.7) mg/dL Total Bilirubin (0.2-1.0) mg/dL AST (13-39) U/L ALT (7-52) U/L Alkaline Phosphatase (34-104) U/L Troponin I (<0.04) ng/mL C-Reactive Protein (< 5.00) mg/L B-Natriuretic Peptide 127 H ( - 100) pg/mL Total Protein (6.4-8.9) g/dL Albumin (3.2-5.2) g/dL Globulin (2-4) g/dL Albumin/Globulin Ratio (1-3) Amylase (29-103) U/L Lipase (11.0-82.0) U/L ECG, personally reviewed: AFIB rate 85, no ischemia, similar to 05/26/2016 CXR, personally reviewed: linear atelectasis L base & cardiomegaly, otherwise negative for acute process CT abd/pel WO, personally reviewed: IMPRESSION: Tiny bilateral non-obstructing renal stones. No definite acute pathology. Impression: 55M presenting with chest pain for r/o ACS DIAGNOSIS & PLAN Primary epigastric/LUQ abdominal pain w/ N/V : uncertain etiology : clear liquid diet : IV pantoprazole : anti-emetics : IVFs : blood CXs : pain control : supportive care CASTRO, suspect dehydration : obtain renal US in AM to further evaluate given AFIB & sudden decrease in renal function : avoid nephrotoxic agents : IVFs & trend hypoMagnesemia, mild : hold repletion 2nd significant CASTRO Secondary dilated cardiomyopathy : continue spironolactone AFIB : continue warfarin : monitor INR, recent warfarin toxicity COPD : albuterol/ipratropium nebs : mometasone/salmeterol : continue guaifenesin : incentive spirometry DM2 : insulin carb ratio diet : basal/correctional protocol while on clear liquid diet, add bolus when taking PO : hold metformin : continue glimepiride : A1c 8.8 05/26/2016 NEAL : continue home CPAP HTN : continue aliskiren, metoprolol, amlodipine, & clonidine HLD : continue simvastatin seronegative RA : continue hydroxychloroquine Admission Rational: inpatient for abdominal pain associated w/ CASTRO of uncertain etiology not anticipated to DVTp: warfarin to restart once INR down to therapeutic Code Status: full
[2016-05-31] MEDS ORDERED: LORazepam INJ* 2 MG/ML 1 ML VIAL IV PUSH ONE (00:57)
[2016-05-31] MEDS ORDERED: Melatonin (NF) 3 MG TAB PO PRN (02:04)
[2016-05-31] MEDS ORDERED: Morphine INJ* 2 MG/ML 1 ML SYRINGE IV PRN (02:04)
[2016-05-31] MEDS ORDERED: Acetaminophen TAB* 325 MG PO PRN (02:04)
[2016-05-31] MEDS ORDERED: Albuterol 2.5 MG/3 ML NEB.SOL* (0.083%) INH PRN (02:04)
[2016-05-31] MEDS ORDERED: Ondansetron INJ* 2 MG/ML VIAL IV PRN (02:05)
[2016-05-31] MEDS ORDERED: PROCHLORPERAZINE INJ 5 MG/ML 2 ML VIAL IV PRN (02:05)
[2016-05-31] MEDS ORDERED: LORazepam TAB(*) 0.5 MG PO PRN (02:15)
[2016-05-31] MEDS: Pantoprazole IV* 40 MG IV SCH (03:33)
[2016-05-31] MEDS: Insulin LISPRO* 1 UNITS UNIT SUBCUT SCH ×6 (03:33→23:38)
--- NOTE | 2016-05-31 05:05 | ED ---
mara Husain Timothy, scribed for Gilberto Roach MD on 05/30/16 at 2302 . HPI Chest Pain - HPI Summary HPI Summary: Jonah Cordon is a 55 yo male presenting to [facility] with chest tightness and SOB with 5/10 abd pain and vomiting since 1800 today. He makes a point that he has not vomited in 25 years. His abd pain radaites to his back slightly. He was released from the hospital at 1800. He presented to [facility] originally when he noticed an increase in his heart rate and became diaphoretic with SOB. 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 When he returned home, he went to use the bathroom , and felt nauseous after standing up and sitting down. He vomited multiple times. He currently has left sided abd pain, which began around the same time as the nausea. His pain was relieved with vommiting. He states he had one BM today, and two yesterday. He has been on laxatives. He denies any sensation of bloating, as well as calf edema and cough. His MHx includes Afib, cardiomegaly, HLD, HTN, pericardial effusion, COPD, asthma, PNA, CPAP, fatty liver, renal failure, DM, depression, anxiety. - History of Current Complaint Time Seen by Provider: 05/30/16 22:50 Hx Obtained From: Patient Onset/Duration: Started Hours Ago, Still Present Time of Onset: 18:00 Timing: Constant Initial Severity: Moderate Current Severity: Moderate Pain Scale Used: 0-10 Numeric Chest Pain Location: Diffuse Chest Pain Radiates: No Character: Tightness Aggravating Factor(s): Nothing Associated Signs and Symptoms: Positive: Chest Pain, Shortness of Breath, Diaphoresis, Nausea, Abdominal Pain, Vomiting. Negative: Cough, Calf Pain/ Swelling - Additional Pertinent History Primary Care Physician: MARIIA - Allergy/Home Medications Allergies/Adverse Reactions: Allergies Allergy/AdvReac Type Severity Reaction Status Date / Time Milk Protein Extract AdvReac Mild lightheaded Verified 03/25/15 11:32 [From Spiriva] Tiotropium [From Spiriva] AdvReac Mild lightheaded Verified 03/25/15 11:32 PMH/Surg Hx/FS Hx/Imm Hx Endocrine/Hematology History: Reports: Hx Anticoagulant Therapy, Hx Diabetes Denies: Hx Anemia, Hx Unexplained Bleeding Cardiovascular History: Reports: Hx Cardiomegaly - dilated cardiomyopathy, Hx Hypercholesterolemia, Hx Hypertension, Other Cardiovascular Problems/Disorders - HX PERICARDIAL EFFUSION Denies: Hx Aneurysm, Hx Angina, Hx Angioplasty, Hx Auto Implanted Cardiovert Defib, Hx Cardiac Arrest, Hx Congenital Heart Disease, Hx Congestive Heart Failure, Hx Coronary Artery Disease, Hx Deep Vein Thrombosis, Hx Embolism, Hx Hypotension, Hx Pacemaker/ICD, Hx Peripheral Vascular Disease, Hx Rheumatic Fever, Hx Syncope, Hx Valvular Heart Disease Respiratory History: Reports: Hx Asthma, Hx Chronic Obstructive Pulmonary Disease (COPD), Hx Pneumonia, Hx Sleep Apnea - CPAP, 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 Denies: Hx Chronic Bronchitis, Hx Cystic Fibrosis, Hx Lung Cancer, Hx Pleural Effusion, Hx Pulmonary Edema, Hx Pulmonary Embolism, Hx Seasonal Allergies GI History: Reports: Other GI Disorders - hx fatty liver History: Reports: Hx Acute Renal Failure, Other Problems/Disorders - hx Proteinuria, problems with erection Denies: Hx Benign Prostatic Hyperplasia, Hx Chronic Renal Failure, Hx Dialysis, Hx Kidney Infection, Hx Kidney Stones Musculoskeletal History: Reports: Hx Arthritis - rheumatoid, osteo, Hx Orthopedic Injury Denies: Hx Back Problems, Hx Bursitis, Hx Congenital Bone Abnormalities, Hx Fibromyalgia, Hx Gout, Hx Osteoporosis, Hx Scoliosis, Hx Tendonitis Sensory History: Reports: Hx Contacts or Glasses, Hx Vision Problem Denies: Hx Cataracts, Hx Eye Injury, Hx Eye Prosthesis, Hx Glaucoma, Hx Legally Blind, Hx Macular Degeneration, Hx Deafness, Hx Hearing Aid, Hx Hearing Problem, Other Sensory Impairments Opthamlomology History: Reports: Hx Contacts or Glasses, Hx Vision Problem Denies: Hx Cataracts, Hx Eye Injury, Hx Eye Prosthesis, Hx Glaucoma, Hx Legally Blind, Hx Macular Degeneration, Other Sensory Impairments Psychiatric History: Reports: Hx Anxiety, Hx Depression Denies: Hx Attention Deficit Hyperactivity Disorder, Hx Eating Disorder, Hx Panic Disorder, Hx Post Traumatic Stress Disorder, Hx Inpatient Treatment, Hx Community Mental Health Tx, Hx Schizophrenia, Hx Bipolar Disorder, Hx Suicide Attempt, Hx of Violent Episodes Against Others, Hx Substance Abuse, Other Psychiatric Issues/Disorders - Cancer History Hx Chemotherapy: No Hx Radiation Therapy: No Hx Palliative Cancer Treatment: No - Surgical History Surgery Procedure, Year, and Place: L ankle surg w/screws Hx Anesthesia Reactions: No Infectious Disease History: Denies: Hx Clostridium Difficile, Hx Hepatitis, Hx Human Immunodeficiency Virus (HIV), Hx of Known/Suspected MRSA, Hx Shingles, Hx Tuberculosis, Hx Known/ Suspected VRE, Hx Known/Suspected VRSA, History Other Infectious Disease, Traveled Outside the [place] in Last 30 Days - Family History Known Family History: Positive: Cardiac Disease, Diabetes - Social History Alcohol Use: Occasionally Alcohol Amount: 2 mixed drinks 4-5 times weekly Substance Use Type: Reports: None Substance Use Comment - Amount & Last Used: used within past week, occasional use Smoking Status (MU): Former Smoker Type: Cigarettes Amount Used/How Often: 1-3 ppd Length of Time of Smoking/Using Tobacco: 28 Have You Smoked in the Last Year: Yes - occasional use Review of Systems Positive: Skin Diaphoresis Eyes: Negative ENT: Negative Positive: Chest Pain Positive: Shortness Of Breath. Negative: Cough Positive: Abdominal Pain - radiating to his back, Vomiting, Nausea Genitourinary: Negative Musculoskeletal: Negative Skin: Negative Neurological: Negative Psychological: Normal All Other Systems Reviewed And Are Negative: Yes Physical Exam - Summary Physical Exam Summary: The patient is well-nourished in no acute distress and in no acute pain. Pt is obese. The skin is warm and dry and skin color reflects adequate perfusion. HEENT: The head is normocephalic and atraumatic. The pupils are equal and reactive. The conjunctivae are clear and without drainage. Nares are patent and without drainage. Mouth reveals moist mucous membranes and the throat is without erythema and exudate. The external ears are intact. Neck is supple with full range of motion and non-tender. There are no carotid bruits. There is no neck vein distension. Respiratory: Chest is non-tender. Lungs are clear to auscultation and there are diminished breath sounds. Cardiovascular: Hear is regular rate and rhythm. There is no murmur or rub auscultated. There is no peripheral edema and pulses are symmetrical and equal. Abdomen: The abdomen is soft and obese. There is tenderness on the left uper, mid, and lower quadrants. There are normal bowel sounds heard in all four quadrants and there is no organomegaly palpated. Musculoskeletal: There is no back pain noted. Extremities are non-tender with full range of motion. There is good capillary refill of two seconds. There is mild peripheral edema of the bilateral lower extremities, but no calf tenderness elicited. Neurological: Patient is alert and oriented to person, place and time. The patient has symmetrical motor strength in all four extremities. Cranial nerves are grossly intact. Deep tendon reflexes are symmetrical and equal in all four extremities. Psychiatric: The patient has an appropriate affect and exhibits mild anxiety, and no depression. Triage Information Reviewed: Yes Vital Signs On Initial Exam: Initial Vital Signs Temp 98.5 F 05/30/16 22:53 Pulse 88 05/30/16 22:53 Resp 22 05/30/16 22:53 BP 157/89 05/30/16 22:53 Pulse Ox 96 05/30/16 22:53 Vital Signs Reviewed: Yes Diagnostics - Vital Signs Vital Signs Temp Pulse Resp BP Pulse Ox 05/31/16 01:00 80 21 159/62 97 05/31/16 00:30 80 22 187/84 87 05/31/16 00:28 83 21 87 05/31/16 00:17 91 19 171/92 95 05/31/16 00:03 77 13 97 05/30/16 23:31 89 16 100 05/30/16 23:30 125/109 05/30/16 23:28 18 05/30/16 22:53 98.5 F 88 22 157/89 96 - Laboratory Lab Results: Lab Results 05/30/16 05/30/16 05/30/16 Range/Units 23:10 23:10 23:10 WBC 10.3 (3.5-10.8) 10^3/ul RBC 4.90 (4.0-5.4) 10^6/ul Hgb 15.7 (14.0-18.0) g/dl Hct 47 (42-52) % MCV 96 H (80-94) fL MCH 32 H (27-31) pg MCHC 34 (31-36) g/dl RDW 14 (10.5-15) % Plt Count 264 (150-450) 10^3/ul MPV 9 (7.4-10.4) um3 Neut % (Auto) 86.5 H (38-83) % Lymph % (Auto) 5.9 L (25-47) % Oliver % (Auto) 6.7 (1-9) % Eos % (Auto) 0.3 (0-6) % Baso % (Auto) 0.6 (0-2) % Absolute Neuts (auto) 8.9 H (1.5-7.7) 10^3/ul Absolute Lymphs (auto) 0.6 L (1.0-4.8) 10^3/ul Absolute Monos (auto) 0.7 (0-0.8) 10^3/ul Absolute Eos (auto) 0 (0-0.6) 10^3/ul Absolute Basos (auto) 0.1 (0-0.2) 10^3/ul Absolute Nucleated RBC 0.01 10^3/ul Nucleated RBC % 0.1 INR (Anticoag Therapy) (0.89-1.11) Sodium 133 (133-145) mmol/L Potassium 4.9 (3.5-5.0) mmol/L Chloride 96 L (101-111) mmol/L Carbon Dioxide 24 (22-32) mmol/L Anion Gap 13 H (2-11) mmol/L BUN 56 H (6-24) mg/dL Creatinine 2.36 H (0.67-1.17) mg/dL Est GFR ( Amer) 37.0 (>60) Est GFR (Non-Af Amer) 28.8 (>60) BUN/Creatinine Ratio 23.7 H (8-20) Glucose 330 H (70-100) mg/dL Lactic Acid 3.2 H* (0.5-2.0) mmol/L Calcium 10.6 H (8.6-10.3) mg/dL Magnesium 1.8 L (1.9-2.7) mg/dL Total Bilirubin 0.80 (0.2-1.0) mg/dL AST 14 (13-39) U/L ALT 21 (7-52) U/L Alkaline Phosphatase 54 (34-104) U/L Troponin I 0.03 (<0.04) ng/mL C-Reactive Protein 19.63 H (< 5.00) mg/L B-Natriuretic Peptide ( - 100) pg/mL Total Protein 8.7 (6.4-8.9) g/dL Albumin 4.4 (3.2-5.2) g/dL Globulin 4.3 H (2-4) g/dL Albumin/Globulin Ratio 1.0 (1-3) Amylase 70 (29-103) U/L Lipase 33 (11.0-82.0) U/L 05/30/16 05/30/16 Range/Units 23:10 23:10 WBC (3.5-10.8) 10^3/ul RBC (4.0-5.4) 10^6/ul Hgb (14.0-18.0) g/dl Hct (42-52) % MCV (80-94) fL MCH (27-31) pg MCHC (31-36) g/dl RDW (10.5-15) % Plt Count (150-450) 10^3/ul MPV (7.4-10.4) um3 Neut % (Auto) (38-83) % Lymph % (Auto) (25-47) % Oliver % (Auto) (1-9) % Eos % (Auto) (0-6) % Baso % (Auto) (0-2) % Absolute Neuts (auto) (1.5-7.7) 10^3/ul Absolute Lymphs (auto) (1.0-4.8) 10^3/ul Absolute Monos (auto) (0-0.8) 10^3/ul Absolute Eos (auto) (0-0.6) 10^3/ul Absolute Basos (auto) (0-0.2) 10^3/ul Absolute Nucleated RBC 10^3/ul Nucleated RBC % INR (Anticoag Therapy) 2.98 H (0.89-1.11) Sodium (133-145) mmol/L Potassium (3.5-5.0) mmol/L Chloride (101-111) mmol/L Carbon Dioxide (22-32) mmol/L Anion Gap (2-11) mmol/L BUN (6-24) mg/dL Creatinine (0.67-1.17) mg/dL Est GFR ( Amer) (>60) Est GFR (Non-Af Amer) (>60) BUN/Creatinine Ratio (8-20) Glucose (70-100) mg/dL Lactic Acid (0.5-2.0) mmol/L Calcium (8.6-10.3) mg/dL Magnesium (1.9-2.7) mg/dL Total Bilirubin (0.2-1.0) mg/dL AST (13-39) U/L ALT (7-52) U/L Alkaline Phosphatase (34-104) U/L Troponin I (<0.04) ng/mL C-Reactive Protein (< 5.00) mg/L B-Natriuretic Peptide 127 H ( - 100) pg/mL Total Protein (6.4-8.9) g/dL Albumin (3.2-5.2) g/dL Globulin (2-4) g/dL Albumin/Globulin Ratio (1-3) Amylase (29-103) U/L Lipase (11.0-82.0) U/L Result Diagrams: 05/30/16 23:10 05/30/16 23:10 Lab Statement: Any lab studies that have been ordered have been reviewed, and results considered in the medical decision making process. - Radiology CXR Xray Interpretation: Positive (See Comments) - cardiomegaly. Atelectasis of the right base. No effusion or pneumonia. Radiology Interpretation Completed By: ED Physician - CT A/P CT Interpretation: No Acute Changes - Impression: Tiny bilateral nonobstructing renal stones. No definite acute pathology. CT Interpretation Completed By: Radiologist - imaging contour sander - EKG 2315 Cardiac Rate: NL - 85 BPM EKG Interpretation: Afib @ 85 BPM. Controlled rate. Left axis deviation. Old anterior infarct. Chest Pain Course/Dx - Course Assessment/Plan: Jonah Cordon is a 55 yo male presenting to [facility] with SOb, abd pain, N/V, and chest tightness since 1800 today. He was released from [facility] around that time. After review of his EKG, imaging studies (see documentation) and his lab work, as well as discussion with Dr. Ybarra, he will be admitted to [facility] for further evaluation and treatment. - Chest Pain Differential Diagnosis/HQI/PQRI: Acute CO, CHF, GI Disease, Other: - renal failure, sbo, colitis, sob - Diagnoses Provider Diagnoses: Abdominal pain, Dehydration, Acute renal failure, SOB (shortness of breath), Chest pain - Provider Notifications Discussed Care Of Patient With: 0044 - Dr. Ybarra (hospitalist) - discussed Pt condition, agrees to admit Pt. Instructed by Provider To: Admit As Inpatient Discharge - Discharge Plan Condition: Stable Disposition: ADMITTED TO [facility] The documentation as recorded by the mara louise Timothy accurately reflects the service I personally performed and the decisions made by , Gilberto Roach MD.
[2016-05-31 05:20] LABS: Hematocrit 46 % (42-52); Hemoglobin 15.2 g/dl (14.0-18.0); Mean Corpuscular HGB Conc 33 g/dl (31-36); Mean Corpuscular Hemoglobin 32 pg (27-31); Mean Corpuscular Volume 97 fL (80-94); Mean Platelet Volume 9 um3 (7.4-10.4); Red Blood Count 4.71 10^6/ul (4.0-5.4); Red Cell Distribution Width 15 % (10.5-15); White Blood Count 10.7 10^3/ul (3.5-10.8)
[2016-05-31 05:34] LABS: Calcium 10.2 mg/dL (8.6-10.3); EGFR African American 43.8 (>60); EGFR Non-African American 34.1 (>60); Potassium 4.7 mmol/L (3.5-5.0)
[2016-05-31] MEDS ORDERED: Albuterol/Ipratropium NEB.SOL* Albuterol 2.5 MG/Ipratropium 0.5 MG 3 ML INH SCH (07:00)
[2016-05-31 07:11] LABS: Urine Bacteria Absent (Absent); Urine Bilirubin Negative (Negative); Urine Glucose 3+(>=500 mg/dL) (Negative); Urine Nitrite Negative (Negative)
--- NOTE | 2016-05-31 07:36 | RAD ---
HISTORY: Shortness of breath, Cough, CHF, pneumonia COMPARISONS: None VIEWS: 2: Frontal dual-energy and lateral views of the chest. FINDINGS: CARDIOMEDIASTINAL SILHOUETTE: The cardiomediastinal silhouette is normal. RAGHAV: The raghav are normal. PLEURA: The costophrenic angles are sharp. No pleural abnormalities are noted. LUNG PARENCHYMA: There is hyperinflation with flattening of the diaphragm and expansion of the AP diameter of the chest. ABDOMEN: The upper abdomen is clear. There is no subphrenic gas. BONES AND SOFT TISSUES: No bone or soft tissue abnormalities are noted. OTHER: None. IMPRESSION: HYPERINFLATION, CONSISTENT WITH COPD. NO ACTIVE CARDIOPULMONARY DISEASE.
--- NOTE | 2016-05-31 07:44 | RAD ---
CLINICAL HISTORY: Abdominal pain, vomiting, small bowel obstruction, colitis COMPARISON: None relevant available at the time of dictation TECHNIQUE: Multiple contiguous axial CT scans were obtained of the abdomen and pelvis, without intravenous contrast enhancement. Coronal and sagittal multiplanar reformations are submitted for review. Oral contrast was not administered. FINDINGS: The study is limited by the lack of intravenous contrast. This limits evaluation of the solid organs and vasculature. Evaluation is limited by patient body habitus. LUNG BASES: The lung bases are clear. LIVER: The liver is diffusely low in attenuation compared to the spleen. There are no focal hepatic parenchymal masses. BILE DUCTS: There is no intrahepatic or extrahepatic biliary dilatation. GALLBLADDER: The gallbladder is normal, without pericholecystic inflammatory change. PANCREAS: The pancreas is normal, without mass or ductal dilatation. SPLEEN: Normal in size and appearance. UPPER GI TRACT: Evaluation of the gastrointestinal tract is limited by incomplete gastric distention. The upper GI tract is unremarkable. SMALL BOWEL AND MESENTERY: The small bowel is normal in contour, course, and caliber. There is no obstruction or dilatation. COLON: There are multiple diverticula of the sigmoid colon. There is no pericolonic inflammatory change. ADRENALS: Normal bilaterally. KIDNEYS: There are punctate nonobstructing calyceal stones bilaterally. BLADDER: The bladder is smooth in contour. PELVIC ORGANS: The prostate gland is normal. The seminal vesicles are symmetric. AORTA: There is calcific atherosclerotic disease of the abdominal aorta and its branches, without aneurysmal dilatation IVC: Unremarkable LYMPH NODES: There is no lymphadenopathy by size criteria. ABDOMINAL WALL: There is a fat-containing of focal hernia. BONES AND SOFT TISSUES: Degenerative changes are noted OTHER: None IMPRESSION: 1. DIVERTICULOSIS. 2. BILATERAL NONOBSTRUCTING RENAL CALYCEAL STONES
[2016-05-31] MEDS: Folic Acid TAB* 1 MG PO SCH (08:03)
[2016-05-31] MEDS: guaiFENesin ER TAB 600 MG PO SCH ×3 (08:03→23:21)
[2016-05-31] MEDS: Docusate CAP* 100 MG PO SCH ×3 (08:03→23:21)
[2016-05-31] MEDS: amLODIPine TAB* 5 MG PO SCH (08:03)
[2016-05-31] MEDS: Magnesium Oxide TAB* 400 MG PO SCH ×3 (08:03→23:21)
[2016-05-31] MEDS: oxyCODONE TAB* 5 MG TAB PO SCH ×4 (08:04→23:34)
[2016-05-31] MEDS: Metoprolol Tartrate TAB* 100 MG TAB PO SCH ×2 (08:04→22:40)
[2016-05-31] MEDS: cloNIDine TAB* 0.1 MG PO SCH ×3 (08:04→22:39)
[2016-05-31] MEDS: Spironolactone TAB* 25 MG PO SCH ×2 (08:04→22:42)
[2016-05-31] MEDS: Polyethylene Glycol 3350* 17 GM PACKET PO SCH (08:05)
[2016-05-31] MEDS: Aliskiren TAB* 150 MG PO SCH (08:11)
[2016-05-31] MEDS: Hydroxychloroquine TAB* 200 MG PO SCH ×2 (08:11→22:40)
[2016-05-31] MEDS: Mometasone/Formoter 200/5 MDI INH SCH ×2 (08:28→19:42)
[2016-05-31] MEDS ORDERED: Albuterol/Ipratropium NEB.SOL* Albuterol 2.5 MG/Ipratropium 0.5 MG 3 ML INH PRN (08:44)
[2016-05-31] MEDS ORDERED: CMC:Glimepiride (NF) 2 MG TAB PO SCH (09:00)
[2016-05-31] MEDS ORDERED: Metolazone TAB* 5 MG PO SCH (09:00)
--- NOTE | 2016-05-31 10:06 | CONSULT ---
Subjective Reason for Visit: chest pain, SOB, left shoulder pain Admission Date: 05/26/16 Glucose Level On Admission: 259 History Of Present Illness: Mr. Cordon is a 55 year old male, admitted on 05/26/16 for chest pain, shortness of breath, and left sided shoulder pain. He reports that he was diagnosed with type II diabetes 5-6 years ago. At that time he was referred to [facility] for diabetic education, and he attended the first class in the three class DSME series. He has not had any real nutritional counseling related to diabetes and does not count carbohydrates. He checks his blood glucose once a day, reports that fasting numbers range from 120-230. He knows that his doctor would like his fasting blood glucose to be less than 100. He reports being symptomatic of hypoglycemia in the 85-90 range, with symptoms including shaking , sweating, and light headedness. His most recent HgbA1C was 8.8%. Patient History Surgical History: Yes Surgery Procedure, Year, and Place: L ankle surg w/screws Lives With: Friends Marital Status: Single Social Support: Lives wtih two friends. Niece is at the bedside and reports that she sees him every day. Preferred/Primary Language: Greenlandic Exercise: sedentary Review Of Systems - Review of Systems Constant: No Weight Loss, No Weight Gain, No Fatigue, No Weakness, No Anorexia, No Poor Appetite, - Eyes: No Blurry Vision, No Changes, - Respiratory: No Productive Cough, No Pulmonary Conditions, - Neurological: - - reports intermittent involunatry shaking which he states is independent of blood glucose. Burning and tingling bilateral feet. Skin: No Open Wounds, - Endocrine: No Polyphagia, No Polydipsia, - - polyuria Objective Allergies Allergy/AdvReac Type Severity Reaction Status Date / Time Milk Protein Extract AdvReac Mild lightheaded Verified 03/25/15 11:32 [From Spiriva] Tiotropium [From Spiriva] AdvReac Mild lightheaded Verified 03/25/15 11:32 Home Medications Medication Instructions Recorded Confirmed Type Albuterol/Ipratropium INH(NF) 2 puff INH QID 01/21/12 05/31/16 History [Combivent Inhaler(NF)] Aliskiren TAB* [Tekturna TAB*] 150 mg PO QAM 01/21/12 05/31/16 History Fluticasone NASAL * [Flonase *] 2 spray BOTH NARES DAILY 01/21/12 05/31/16 History Folic Acid TAB* [Folvite TAB*] 1 mg PO DAILY 01/21/12 05/31/16 History Methotrexate TAB* 15 mg PO WEEKLY 01/21/12 05/31/16 History Metolazone TAB* [Zaroxolyn TAB*] 2.5 mg PO DAILY 01/21/12 05/31/16 History Metoprolol Tartrate TAB* 100 mg PO BID 01/21/12 05/31/16 History [Lopressor TAB*] cloNIDine TAB* [Catapres 0.1 MG 0.3 mg PO TID 01/21/12 05/31/16 History TAB*] metFORMIN* [Glucophage 500 MG TAB 1,000 mg PO BID 01/21/12 05/31/16 History *] Acetaminophen TAB* [Tylenol TAB*] 325 mg PO Q6H PRN 09/30/14 05/31/16 History Adalimumab (NF) [Humira Pen (NF)] 40 mg SUBCUT WEEKLY 09/30/14 05/31/16 History Fluticasone HFA 110 mcg(NF) 2 puff INH BID 09/30/14 05/31/16 History [Flovent HFA 110 mcg(NF)] Furosemide TAB* [Lasix TAB*] 80 mg PO DAILY 09/30/14 05/31/16 History Simvastatin TAB(NF) [Zocor 20 MG 20 mg PO BEDTIME 09/30/14 05/31/16 History (NF)] Spironolactone TAB* [Aldactone TAB 50 mg PO BID 09/30/14 05/31/16 History 25 MG*] Warfarin TAB(*) [Coumadin TAB(*)] 3.75 mg PO SUMOTUTHFRSA 09/30/14 05/31/16 History Warfarin TAB(*) [Coumadin TAB(*)] 7.5 mg PO WE 09/30/14 05/31/16 History amLODIPine TAB* [Norvasc TAB*] 10 mg PO DAILY 09/30/14 05/31/16 History guaiFENesin ER TAB [Mucinex*] 600 mg PO BID 09/30/14 05/31/16 History zzInsulin GLARGINE(*) [zzLantus(*)] 150 units SUBCUT BEDTIME 09/30/14 05/31/16 History Fexofenadine (NF) [Jasmyn (NF)] 60 mg PO BID 05/26/16 05/31/16 History Hydroxychloroquine TAB* [Plaquenil 200 mg PO BID 05/26/16 05/31/16 History TAB*] Lorazepam [Ativan 0.5 MG TAB] 0.5 mg PO Q6HR PRN 05/26/16 05/31/16 History Magnesium Oxide [Magnesium Oxide-] 400 mg PO BID 05/26/16 05/31/16 History Mometasone 220 MCG MDI * [Asmanex 1 puff INH BID 05/26/16 05/31/16 History 220 MCG MDI *] Oxycodone IR 10 MG(NF) 10 mg PO Q6HR 05/26/16 05/31/16 History Polyethylene Glycol 3350* 17 gm PO DAILY 05/26/16 05/31/16 History [Miralax*] Triamcinolone 0.1% CREAM (NF) 1 applic TOPICAL BID 05/26/16 05/31/16 History [Kenalog 0.1% Cream (NF)] Aspirin EC Low Dose* [Ecotrin EC 81 mg PO DAILY tab.ec 05/30/16 Rx Low Dose 81 MG*] Glimepiride (NF) 4 mg PO BID tab 05/30/16 05/31/16 Rx Hospital Medications: Current Medications Acetaminophen (Tylenol Tab*) 650 mg PO Q6H PRN PRN Reason: FEVER/PAIN Albuterol (Ventolin 2.5 Mg/3 Ml Neb.Joanna*) 2.5 mg INH Q2H PRN PRN Reason: SOB/WHEEZING Albuterol/Ipratropium (Duoneb (Albuterol 2.5 Mg/Ipratropium 0.5 Mg)) 1 neb INH [id number] AWAKE PRN PRN Reason: SOB/WHEEZING Aliskiren (Tekturna Tab*) 150 mg PO QAM [facility] Last Admin: 05/31/16 08:11 Dose: 150 mg Amlodipine Besylate (Norvasc Tab*) 10 mg PO DAILY [facility] Last Admin: 05/31/16 08:03 Dose: 10 mg Atorvastatin Calcium (Lipitor*) 10 mg PO BEDTIME [facility] Clonidine HCl (Catapres Tab*) 0.3 mg PO TID [facility] Last Admin: 05/31/16 08:04 Dose: 0.3 mg Docusate Sodium (Colace Cap*) 200 mg PO BID [facility] Last Admin: 05/31/16 08:03 Dose: 200 mg Folic Acid (Folvite Tab*) 1 mg PO DAILY [facility] Last Admin: 05/31/16 08:03 Dose: 1 mg Glimepiride (Glimepiride (Nf)) 4 mg PO BID [facility] PRN Reason: Protocol Last Admin: 05/31/16 08:05 Dose: Not Given Guaifenesin (Mucinex*) 600 mg PO BID [facility] Last Admin: 05/31/16 08:03 Dose: 600 mg Hydroxychloroquine Sulfate (Plaquenil Tab*) 200 mg PO BID [facility] Last Admin: 05/31/16 08:11 Dose: 200 mg Sodium Chloride (Ns 0.9% 1000 Ml*) 1,000 mls @ 125 mls/hr IV PER RATE [facility] Insulin Glargine (Lantus(*)) 100 units SUBCUT BEDTIME [facility] Insulin Human Lispro (Humalog*) 0 units SUBCUT Q4H [facility] PRN Reason: Protocol Last Admin: 05/31/16 08:05 Dose: 3 units Lorazepam (Ativan Tab(*)) 0.5 mg PO Q6HR PRN PRN Reason: ANXIETY Magnesium Oxide (Magox 400 Tab*) 400 mg PO BID [facility] Last Admin: 05/31/16 08:03 Dose: 400 mg Melatonin (Melatonin (Nf)) 3 mg PO BEDTIME PRN; Protocol PRN Reason: Sleep Metoprolol Tartrate (Lopressor Tab*) 100 mg PO BID [facility] Last Admin: 05/31/16 08:04 Dose: 100 mg Mometasone Furoate/Formoterol Fumar (Dulera 200/5 Mdi*) 2 puff INH BID [facility] Last Admin: 05/31/16 08:28 Dose: 2 puff Morphine Sulfate (Morphine Inj (Syringe)*) 2 mg IV Q4H PRN PRN Reason: PAIN - MILD Ondansetron HCl (Zofran Inj*) 4 mg IV Q6H PRN PRN Reason: NAUSEA Oxycodone HCl (Roxycodone Tab*) 10 mg PO Q6HR [facility] Last Admin: 05/31/16 08:04 Dose: 10 mg Pantoprazole Sodium (Protonix Iv*) 40 mg IV 0900 [facility] Last Admin: 05/31/16 03:33 Dose: 40 mg Pharmacy Profile Note (Coumadin Daily Reminder*) 1 note FOLLOW UP 1700 [facility] Polyethylene Glycol/Electrolytes (Miralax*) 17 gm PO DAILY [facility] Last Admin: 05/31/16 08:05 Dose: 17 gm Prochlorperazine Edisylate (Compazine Inj*) 10 mg IV Q6H PRN PRN Reason: NAUSEA Spironolactone (Aldactone Tab*) 50 mg PO BID [facility] Last Admin: 05/31/16 08:04 Dose: 50 mg Warfarin Sodium (Coumadin Tab(*)) 3.75 mg PO SuMoTuThFrSa@1700 [facility] PRN Reason: Protocol Warfarin Sodium (Coumadin Tab(*)) 7.5 mg PO We@1700 [facility] PRN Reason: Protocol Lab Data: Sodium 134 mmol/L (133-145) 05/31/16 05:10 Potassium 4.7 mmol/L (3.5-5.0) 05/31/16 05:10 BUN 55 mg/dL (6-24) H 05/31/16 05:10 Creatinine 2.04 mg/dL (0.67-1.17) H 05/31/16 05:10 Calcium 10.2 mg/dL (8.6-10.3) 05/31/16 05:10 Magnesium 1.8 mg/dL (1.9-2.7) L 05/30/16 23:10 AST 14 U/L (13-39) 05/30/16 23:10 ALT 21 U/L (7-52) 05/30/16 23:10 Vital Signs: Vital Signs 05/31/16 05/31/16 05/31/16 02:38 07:23 07:30 Temperature 36.8 C 36.7 C Pulse Rate 83 90 92 Respiratory 20 18 18 Rate Blood Pressure 141/68 155/77 (mmHg) O2 Sat by Pulse 96 96 99 Oximetry 05/31/16 05/31/16 05/31/16 07:42 08:00 08:04 Temperature Pulse Rate Respiratory 20 16 16 Rate Blood Pressure (mmHg) O2 Sat by Pulse Oximetry 05/31/16 08:49 Temperature Pulse Rate 92 Respiratory 18 Rate Blood Pressure (mmHg) O2 Sat by Pulse 96 Oximetry Height: 5 ft 9 in Weight: 136.078 kg Body Mass Index (BMI): 44.3 Physical Exam General Appearance: Positive: Alert, Oriented x3, Well Developed, Obese, No Distress Respiratory: Positive: Non-Labored Abdomin: Positive: Soft, Obese Peripheral Extremities: Positive: Pulse: Dosalis Pedis Skin: Insulin Injection Sites - benign Plan Of Care Patient's Next Step: We discussed his fasting blood glucose being high, and the range that it should be in. We discussed the signs and symptoms of hyper and hypoglycemia. Discussed what to do if he does experience hypoglycemia. We discussed carbohydrate counting and nutrition in detail. He has difficulty exercising due to neuropathy, but I did talk to him about the importance of exercise in controlling diabetes. I encouraged him to follow up at [facility] for further diabetes education, and to finish the DSME classes. Referral To: [facility] For Further OutPT Diabetic Training Diagnosis: Type II diabetes, not well controlled Discharge Plan: Follow up at [facility] as an outpatient for diabetes education Education Prior Diabetic Education: Yes Education Provided: Insulin To Carb Ratio and Carb Counting, Blood Glucose Monitoring Handouts Provided: Living well with diabetes, My plate, 60 gm carboydrate
--- NOTE | 2016-05-31 11:02 | RAD ---
INDICATION: Nonobstructive renal calculi identified on CT imaging. Left-sided pain COMPARISON: CT May 30, 2016 TECHNIQUE: Longitudinal and transverse scans of the kidneys were obtained. FINDINGS: Kidneys: The kidneys are normal in size and echogenicity. No renal calculi are identified sonographically. There is a cyst with a small septation in the upper pole of the left kidney measuring 1.5 x 1.7 x 1.4 cm. The right kidney measures 14.2 x 5.9 x 6.1 cm and the left kidney 14.4 x 6.9 x 5.4 cm. Other: None IMPRESSION: The sonogram does not identify renal calculi or obstruction. Small, minimally complicated, left renal cyst
--- NOTE | 2016-05-31 13:54 | PN ---
Subjective Date of Service: 05/31/16 Interval History: Patient seen and examined at bedside. He was released AMA yesterday after a cardiac workup. Prior to discharge, he was diaphoretic and tachycardic but declined further workup. He states when he got home, he was sweating and started having severe nausea and vomiting. He states that he felt dehydrated and his emesis was all solids and no liquid. He also states that recently he was told he was dehydrated because there was difficulty drawing blood from him. He denies diarrhea, stating that he usually has constipation due to chronic pain. He reports his chest discomfort is better and overall feels better now. He states he is hungry and would like to advance his diet. He denies fever/ chills, palpitations, SOB. Reports improvement in abdominal pain and currently denies nausea. Of note, patient did report some dizziness when moving from lying to sitting. Orthostatic VS wnl. Family History: Unchanged from Admission Social History: Unchanged from Admission Past Medical History: Unchanged from Admission Objective Active Medications: Acetaminophen (Tylenol Tab*) 650 mg PO Q6H PRN PRN Reason: FEVER/PAIN Albuterol (Ventolin 2.5 Mg/3 Ml Neb.Joanna*) 2.5 mg INH Q2H PRN PRN Reason: SOB/WHEEZING Albuterol/Ipratropium (Duoneb (Albuterol 2.5 Mg/Ipratropium 0.5 Mg)) 1 neb INH [id number] AWAKE PRN PRN Reason: SOB/WHEEZING Aliskiren (Tekturna Tab*) 150 mg PO QAM [facility] Last Admin: 05/31/16 08:11 Dose: 150 mg Amlodipine Besylate (Norvasc Tab*) 10 mg PO DAILY [facility] Last Admin: 05/31/16 08:03 Dose: 10 mg Atorvastatin Calcium (Lipitor*) 10 mg PO BEDTIME [facility] Clonidine HCl (Catapres Tab*) 0.3 mg PO TID [facility] Last Admin: 05/31/16 08:04 Dose: 0.3 mg Docusate Sodium (Colace Cap*) 200 mg PO BID [facility] Last Admin: 05/31/16 08:03 Dose: 200 mg Folic Acid (Folvite Tab*) 1 mg PO DAILY [facility] Last Admin: 05/31/16 08:03 Dose: 1 mg Glimepiride (Glimepiride (Nf)) 4 mg PO BID [facility] PRN Reason: Protocol Last Admin: 05/31/16 08:05 Dose: Not Given Guaifenesin (Mucinex*) 600 mg PO BID [facility] Last Admin: 05/31/16 08:03 Dose: 600 mg Hydroxychloroquine Sulfate (Plaquenil Tab*) 200 mg PO BID [facility] Last Admin: 05/31/16 08:11 Dose: 200 mg Sodium Chloride (Ns 0.9% 1000 Ml*) 1,000 mls @ 125 mls/hr IV PER RATE [facility] Insulin Glargine (Lantus(*)) 100 units SUBCUT BEDTIME [facility] Insulin Human Lispro (Humalog*) 0 units SUBCUT Q4H [facility] PRN Reason: Protocol Last Admin: 05/31/16 11:39 Dose: 6 units Lorazepam (Ativan Tab(*)) 0.5 mg PO Q6HR PRN PRN Reason: ANXIETY Magnesium Oxide (Magox 400 Tab*) 400 mg PO BID [facility] Last Admin: 05/31/16 08:03 Dose: 400 mg Melatonin (Melatonin (Nf)) 3 mg PO BEDTIME PRN; Protocol PRN Reason: Sleep Metoprolol Tartrate (Lopressor Tab*) 100 mg PO BID [facility] Last Admin: 05/31/16 08:04 Dose: 100 mg Mometasone Furoate/Formoterol Fumar (Dulera 200/5 Mdi*) 2 puff INH BID [facility] Last Admin: 05/31/16 08:28 Dose: 2 puff Morphine Sulfate (Morphine Inj (Syringe)*) 2 mg IV Q4H PRN PRN Reason: PAIN - MILD Ondansetron HCl (Zofran Inj*) 4 mg IV Q6H PRN PRN Reason: NAUSEA Oxycodone HCl (Roxycodone Tab*) 10 mg PO Q6HR [facility] Last Admin: 05/31/16 11:40 Dose: 10 mg Pantoprazole Sodium (Protonix Iv*) 40 mg IV 0900 [facility] Last Admin: 05/31/16 03:33 Dose: 40 mg Pharmacy Profile Note (Coumadin Daily Reminder*) 1 note FOLLOW UP 1700 [facility] Polyethylene Glycol/Electrolytes (Miralax*) 17 gm PO DAILY [facility] Last Admin: 05/31/16 08:05 Dose: 17 gm Prochlorperazine Edisylate (Compazine Inj*) 10 mg IV Q6H PRN PRN Reason: NAUSEA Spironolactone (Aldactone Tab*) 50 mg PO BID [facility] Last Admin: 05/31/16 08:04 Dose: 50 mg Warfarin Sodium (Coumadin Tab(*)) 3.75 mg PO Aleah@1700 [facility] PRN Reason: Protocol Warfarin Sodium (Coumadin Tab(*)) 7.5 mg PO We@1700 [facility] PRN Reason: Protocol Vital Signs 05/31/16 05/31/16 05/31/16 01:22 01:30 02:38 Temperature 98.1 F 98.3 F Pulse Rate 89 90 83 Respiratory 15 22 20 Rate Blood Pressure 159/62 143/87 141/68 (mmHg) O2 Sat by Pulse 97 96 Oximetry 05/31/16 05/31/16 05/31/16 07:23 07:30 07:42 Temperature 98.1 F Pulse Rate 90 92 Respiratory 18 18 20 Rate Blood Pressure 155/77 (mmHg) O2 Sat by Pulse 96 99 Oximetry 05/31/16 05/31/16 05/31/16 08:00 08:04 08:49 Temperature Pulse Rate 92 Respiratory 16 16 18 Rate Blood Pressure (mmHg) O2 Sat by Pulse 96 Oximetry 05/31/16 05/31/16 10:04 11:40 Temperature Pulse Rate Respiratory 16 16 Rate Blood Pressure (mmHg) O2 Sat by Pulse Oximetry Oxygen Devices in Use Now: None Appearance: Obese male, sitting on edge of bed, in NAD Eyes: PERRLA Ears/Nose/Mouth/Throat: Mucous Membranes Moist Neck: NL Appearance and Movements; NL JVP Respiratory: Symmetrical Chest Expansion and Respiratory Effort, Clear to Auscultation Cardiovascular: NL Sounds; No Murmurs; No JVD, RRR Abdominal: - - BS x 4, protuberant, mild diffuse tenderness, moderate tenderness over epigastrum Extremities: - - +1 edema Skin: No Rash or Ulcers Neurological: Alert and Oriented x 3 Lines/Tubes/Other Access: Clean, Dry and Intact Peripheral IV Nutrition: Taking PO's Result Diagrams: 05/31/16 05:10 05/31/16 05:10 Additional Lab and Data: Lab Results 05/30/16 05/30/16 05/30/16 Range/Units 23:10 23:10 23:10 WBC 10.3 (3.5-10.8) 10^3/ul RBC 4.90 (4.0-5.4) 10^6/ul Hgb 15.7 (14.0-18.0) g/dl Hct 47 (42-52) % MCV 96 H (80-94) fL MCH 32 H (27-31) pg MCHC 34 (31-36) g/dl RDW 14 (10.5-15) % Plt Count 264 (150-450) 10^3/ul MPV 9 (7.4-10.4) um3 Neut % (Auto) 86.5 H (38-83) % Lymph % (Auto) 5.9 L (25-47) % Hoke % (Auto) 6.7 (1-9) % Eos % (Auto) 0.3 (0-6) % Baso % (Auto) 0.6 (0-2) % Absolute Neuts (auto) 8.9 H (1.5-7.7) 10^3/ul Absolute Lymphs (auto) 0.6 L (1.0-4.8) 10^3/ul Absolute Monos (auto) 0.7 (0-0.8) 10^3/ul Absolute Eos (auto) 0 (0-0.6) 10^3/ul Absolute Basos (auto) 0.1 (0-0.2) 10^3/ul Absolute Nucleated RBC 0.01 10^3/ul Nucleated RBC % 0.1 INR (Anticoag Therapy) (0.89-1.11) Sodium 133 (133-145) mmol/L Potassium 4.9 (3.5-5.0) mmol/L Chloride 96 L (101-111) mmol/L Carbon Dioxide 24 (22-32) mmol/L Anion Gap 13 H (2-11) mmol/L BUN 56 H (6-24) mg/dL Creatinine 2.36 H (0.67-1.17) mg/dL Est GFR ( Amer) 37.0 (>60) Est GFR (Non-Af Amer) 28.8 (>60) BUN/Creatinine Ratio 23.7 H (8-20) Glucose 330 H (70-100) mg/dL Lactic Acid 3.2 H* (0.5-2.0) mmol/L Calcium 10.6 H (8.6-10.3) mg/dL Magnesium 1.8 L (1.9-2.7) mg/dL Total Bilirubin 0.80 (0.2-1.0) mg/dL AST 14 (13-39) U/L ALT 21 (7-52) U/L Alkaline Phosphatase 54 (34-104) U/L Troponin I 0.03 (<0.04) ng/mL C-Reactive Protein 19.63 H (< 5.00) mg/L B-Natriuretic Peptide ( - 100) pg/mL Total Protein 8.7 (6.4-8.9) g/dL Albumin 4.4 (3.2-5.2) g/dL Globulin 4.3 H (2-4) g/dL Albumin/Globulin Ratio 1.0 (1-3) Amylase 70 (29-103) U/L Lipase 33 (11.0-82.0) U/L 05/30/16 05/30/16 Range/Units 23:10 23:10 WBC (3.5-10.8) 10^3/ul RBC (4.0-5.4) 10^6/ul Hgb (14.0-18.0) g/dl Hct (42-52) % MCV (80-94) fL MCH (27-31) pg MCHC (31-36) g/dl RDW (10.5-15) % Plt Count (150-450) 10^3/ul MPV (7.4-10.4) um3 Neut % (Auto) (38-83) % Lymph % (Auto) (25-47) % Hoke % (Auto) (1-9) % Eos % (Auto) (0-6) % Baso % (Auto) (0-2) % Absolute Neuts (auto) (1.5-7.7) 10^3/ul Absolute Lymphs (auto) (1.0-4.8) 10^3/ul Absolute Monos (auto) (0-0.8) 10^3/ul Absolute Eos (auto) (0-0.6) 10^3/ul Absolute Basos (auto) (0-0.2) 10^3/ul Absolute Nucleated RBC 10^3/ul Nucleated RBC % INR (Anticoag Therapy) 2.98 H (0.89-1.11) Sodium (133-145) mmol/L Potassium (3.5-5.0) mmol/L Chloride (101-111) mmol/L Carbon Dioxide (22-32) mmol/L Anion Gap (2-11) mmol/L BUN (6-24) mg/dL Creatinine (0.67-1.17) mg/dL Est GFR ( Amer) (>60) Est GFR (Non-Af Amer) (>60) BUN/Creatinine Ratio (8-20) Glucose (70-100) mg/dL Lactic Acid (0.5-2.0) mmol/L Calcium (8.6-10.3) mg/dL Magnesium (1.9-2.7) mg/dL Total Bilirubin (0.2-1.0) mg/dL AST (13-39) U/L ALT (7-52) U/L Alkaline Phosphatase (34-104) U/L Troponin I (<0.04) ng/mL C-Reactive Protein (< 5.00) mg/L B-Natriuretic Peptide 127 H ( - 100) pg/mL Total Protein (6.4-8.9) g/dL Albumin (3.2-5.2) g/dL Globulin (2-4) g/dL Albumin/Globulin Ratio (1-3) Amylase (29-103) U/L Lipase (11.0-82.0) U/L Microbiology and Other Data: Microbiology 05/31/16 11:10 Influenza Types A,B Antigen (RITA) - Final Nasal Specimen received for Influenza A/B Molecular testing Assess/Plan/Problems-Billing Assessment: Mr. Cordon is a 55 yo male with a PMH of dilated cardiomyopathy, pericarditis , atrial fib, COPD, DM, NEAL, HTN, CKD, HLD, and ETOH abuse who left AMA on after undergoing stress test and returned with concern for n/v and abdominal pain; pt also found to have CASTRO. - Patient Problems (1) Abdominal pain with vomiting Code(s): R10.9 - UNSPECIFIED ABDOMINAL PAIN; R11.10 - VOMITING, UNSPECIFIED Comment: Questionable etiology, possibly gastroenteritis Now improving. Patient tolerating PO intake and requesting advancement of diet. Blood cultures pending, no fevers or leukocytosis. Supportive care - continue IVF, anti-emetics. (2) Chest pain Code(s): R07.9 - CHEST PAIN, UNSPECIFIED Comment: - Stress test 05/30/16 showed suspicion for anterior wall ischemia, mildly enlarged chamber size and low EF. - Consult by Dr. Carmen 05/30 indicates no further cardiac workup is necessary and recommends outpatient cardiology follow-up. - EKG showed no acute ischemic changes and serial troponins were negative. - His chest pain appears to be musculoskeletal as his spent >1 hour working with his arms above his head and developed left shoulder pain radiating to his chest, but he does have risk factors for CAD. (3) CKD (chronic kidney disease) stage 3, GFR 30-59 ml/min Code(s): N18.3 - CHRONIC KIDNEY DISEASE, STAGE 3 (MODERATE) Comment: With acute on chronic injury Suspect secondary to dehydration Continue IV hydration, recheck BMP in AM Avoid nephrotoxic medications. (4) COPD (chronic obstructive pulmonary disease) Code(s): J44.9 - CHRONIC OBSTRUCTIVE PULMONARY DISEASE, UNSPECIFIED Comment: Stable. Continue bronchodilators and inhaled steroids. (5) Atrial fibrillation Code(s): I48.91 - UNSPECIFIED ATRIAL FIBRILLATION Comment: Rate controlled. Continue metopolol and warfarin. (6) Dilated cardiomyopathy Code(s): I42.0 - DILATED CARDIOMYOPATHY Comment: Patient states he was discharged from Cardiology 3 years ago. Will require outpatient follow-up. Continue Aliskiren, furosemide, metolazone, and spironolactone. (7) HTN (hypertension) Code(s): I10 - ESSENTIAL (PRIMARY) HYPERTENSION Comment: With fair control. Continue Aliskiren, metoprolol, diuretics, amlodipine, clonidine. (8) Left shoulder pain Code(s): M25.512 - PAIN IN LEFT SHOULDER Comment: Likely musculoskeletal due to exertion. Continue pain management and warm packs. Patient is immunossupressed on MTX and Humira, but no signs of infection at this time. (9) Morbid obesity Code(s): E66.01 - MORBID (SEVERE) OBESITY DUE TO EXCESS CALORIES Comment: Refer to [facility] on discharge. (10) Type 2 diabetes mellitus Comment: HgbA1c is 8.8 despite hefty regimen. Continue Lantus, and Lispro SS. Glimeperide and metformin on hold. Diabetes education follow-up with [facility] upon discharge. (11) NEAL (obstructive sleep apnea) Code(s): G47.33 - OBSTRUCTIVE SLEEP APNEA (ADULT) (PEDIATRIC) Comment: Continue home CPAP use. (12) DVT prophylaxis Code(s): RQD9501 - Comment: Warfarin (13) Full code status Code(s): Z78.9 - OTHER SPECIFIED HEALTH STATUS Status and Disposition: Inpatient admission. Anticipate LOS > 2 days.
[2016-05-31] MEDS: NS 0.9% 1000 ML* 1,000 ML IV SCH (16:51)
[2016-05-31] MEDS ORDERED: Warfarin TAB(*) 7.5 MG PO SCH (17:00)
[2016-05-31] MEDS ORDERED: Dextrose 50% Syringe 50 ML* 25 GM/50 ML SYRINGE IV PUSH PRN (17:58)
[2016-05-31] MEDS ORDERED: Insulin GLARGINE(*) 1 UNITS UNIT SUBCUT SCH (21:00)
[2016-05-31] MEDS ORDERED: Atorvastatin* 10 MG TAB PO SCH (21:00)
[2016-05-31] MEDS: GLIMEPIRIDE 4 MG PO SCH (22:41)
[2016-05-31] MEDS: Morphine INJ* 4 MG/ML 1 ML SYRINGE IV PRN (23:01)
[2016-06-01] MEDS: Insulin LISPRO* 1 UNITS UNIT SUBCUT SCH ×7 (03:28→17:18)
[2016-06-01] MEDS: Morphine INJ* 4 MG/ML 1 ML SYRINGE IV PRN (03:33)
[2016-06-01] MEDS: oxyCODONE TAB* 5 MG TAB PO SCH ×2 (06:25→13:36)
[2016-06-01 06:57] LABS: Hematocrit 39 % (42-52); Mean Corpuscular HGB Conc 33 g/dl (31-36); Mean Corpuscular Hemoglobin 32 pg (27-31); Mean Corpuscular Volume 97 fL (80-94); Mean Platelet Volume 9 um3 (7.4-10.4); Red Blood Count 4.04 10^6/ul (4.0-5.4); Red Cell Distribution Width 14 % (10.5-15); White Blood Count 8.9 10^3/ul (3.5-10.8)
[2016-06-01 07:28] LABS: BUN/Creatinine Ratio 29.4 (8-20); Calcium 9.2 mg/dL (8.6-10.3); EGFR African American 81.6 (>60); EGFR Non-African American 63.5 (>60); Potassium 4.3 mmol/L (3.5-5.0)
[2016-06-01] MEDS: Mometasone/Formoter 200/5 MDI INH SCH (09:32)
[2016-06-01] MEDS: NS 0.9% 1000 ML* 1,000 ML IV SCH (09:59)
[2016-06-01] MEDS: Folic Acid TAB* 1 MG PO SCH (10:28)
[2016-06-01] MEDS: Docusate CAP* 100 MG PO SCH (10:28)
[2016-06-01] MEDS: Spironolactone TAB* 25 MG PO SCH (10:28)
[2016-06-01] MEDS: Hydroxychloroquine TAB* 200 MG PO SCH (10:28)
[2016-06-01] MEDS: cloNIDine TAB* 0.1 MG PO SCH ×2 (10:28→13:37)
[2016-06-01] MEDS: Polyethylene Glycol 3350* 17 GM PACKET PO SCH (10:29)
[2016-06-01] MEDS: Metoprolol Tartrate TAB* 100 MG TAB PO SCH (10:29)
[2016-06-01] MEDS: Aliskiren TAB* 150 MG PO SCH (10:29)
[2016-06-01] MEDS: Pantoprazole IV* 40 MG IV SCH (10:29)
[2016-06-01] MEDS: GLIMEPIRIDE 4 MG PO SCH (10:29)
[2016-06-01] MEDS: guaiFENesin ER TAB 600 MG PO SCH (10:29)
[2016-06-01] MEDS: Magnesium Oxide TAB* 400 MG PO SCH (10:29)
[2016-06-01] MEDS: amLODIPine TAB* 5 MG PO SCH (10:29)
[2016-06-01 15:59] VITALS: BP 111/42
--- NOTE | 2016-06-01 16:14 | PN ---
Subjective Date of Service: 06/01/16 Interval History: Mr. Cordon states he is feeling much better today. He has had no further nausea or vomiting. He is tolerating oral intake well. He does complain that the muscle in his left jaw hurts and is tender to palpation. He denies chest pain or SOB. The pain in his left arm has greatly improved. Family History: Unchanged from Admission Social History: Unchanged from Admission Past Medical History: Unchanged from Admission Objective Active Medications: Acetaminophen (Tylenol Tab*) 650 mg PO Q6H PRN Albuterol (Ventolin 2.5 Mg/3 Ml Neb.Joanna*) 2.5 mg INH Q2H PRN Albuterol/Ipratropium (Duoneb (Albuterol 2.5 Mg/Ipratropium 0.5 Mg)) 1 neb INH [id number] AWAKE PRN Aliskiren (Tekturna Tab*) 150 mg PO QAM PANDA Amlodipine Besylate (Norvasc Tab*) 10 mg PO DAILY PANDA Atorvastatin Calcium (Lipitor*) 10 mg PO BEDTIME PANDA Clonidine HCl (Catapres Tab*) 0.3 mg PO TID PANDA Dextrose (D50w Syringe 50 Ml*) 12.5 gm IV PUSH .FOR FS < 60 - SS PRN Docusate Sodium (Colace Cap*) 200 mg PO BID PANDA Folic Acid (Folvite Tab*) 1 mg PO DAILY PANDA Guaifenesin (Mucinex*) 600 mg PO BID PANDA Hydroxychloroquine Sulfate (Plaquenil Tab*) 200 mg PO BID PANDA Sodium Chloride (Ns 0.9% 1000 Ml*) 1,000 mls @ 125 mls/hr IV PER RATE PANDA Insulin Glargine (Lantus(*)) 100 units SUBCUT BEDTIME PANDA Insulin Human Lispro (Humalog*) 0 units SUBCUT Q4H PANDA Insulin Human Lispro (Humalog*) 0 units SUBCUT AC PANDA Lorazepam (Ativan Tab(*)) 0.5 mg PO Q6HR PRN Magnesium Oxide (Magox 400 Tab*) 400 mg PO BID PANDA Melatonin (Melatonin (Nf)) 3 mg PO BEDTIME PRN; Protocol Metoprolol Tartrate (Lopressor Tab*) 100 mg PO BID PANDA Mometasone Furoate/Formoterol Fumar (Dulera 200/5 Mdi*) 2 puff INH BID PANDA Morphine Sulfate (Morphine Inj (Syringe)*) 4 mg IV Q4H PRN Pto:Glimepiride (Nf) (4 Mg Tab) [address] [facility] Ondansetron HCl (Zofran Inj*) 4 mg IV Q6H PRN Oxycodone HCl (Roxycodone Tab*) [address] [facility] Pantoprazole Sodium (Protonix Iv*) [address] [facility] Pharmacy Profile Note (Coumadin Daily Reminder*) 1 note FOLLOW UP [address]00 [facility] Polyethylene Glycol/Electrolytes (Miralax*) [address] [facility] Prochlorperazine Edisylate (Compazine Inj*) 10 mg IV Q6H PRN Spironolactone (Aldactone Tab*) [address] [facility] Vital Signs 05/31/16 05/31/16 05/31/16 17:11 19:11 19:42 Temperature 98.4 F Pulse Rate 72 Respiratory 16 20 15 Rate Blood Pressure 143/75 (mmHg) O2 Sat by Pulse 98 Oximetry 05/31/16 05/31/16 05/31/16 19:43 19:44 19:48 Temperature Pulse Rate 78 Respiratory 20 Rate Blood Pressure (mmHg) O2 Sat by Pulse 99 99 Oximetry 05/31/16 05/31/16 05/31/16 20:00 22:00 23:01 Temperature Pulse Rate Respiratory 16 20 20 Rate Blood Pressure (mmHg) O2 Sat by Pulse Oximetry 05/31/16 05/31/16 05/31/16 23:14 23:25 23:34 Temperature 98.9 F Pulse Rate 70 Respiratory 20 16 20 Rate Blood Pressure 147/57 (mmHg) O2 Sat by Pulse 97 Oximetry 06/01/16 06/01/16 06/01/16 00:01 01:14 01:34 Temperature Pulse Rate Respiratory 16 16 16 Rate Blood Pressure (mmHg) O2 Sat by Pulse Oximetry 06/01/16 06/01/16 06/01/16 03:33 04:02 06:25 Temperature Pulse Rate 46 Respiratory 16 16 18 Rate Blood Pressure 105/44 (mmHg) O2 Sat by Pulse 97 Oximetry 06/01/16 06/01/16 06/01/16 07:36 08:00 08:25 Temperature 97.2 F Pulse Rate 72 Respiratory 16 16 16 Rate Blood Pressure 134/71 (mmHg) O2 Sat by Pulse 97 Oximetry 06/01/16 06/01/16 06/01/16 09:35 12:12 13:23 Temperature 97.7 F Pulse Rate 72 66 Respiratory 18 14 Rate Blood Pressure 116/65 (mmHg) O2 Sat by Pulse 98 99 98 Oximetry 06/01/16 06/01/16 06/01/16 13:36 14:07 15:18 Temperature 98.4 F 98.3 F Pulse Rate 56 54 Respiratory 20 22 20 Rate Blood Pressure 110/87 111/42 (mmHg) O2 Sat by Pulse 99 99 Oximetry 06/01/16 15:31 Temperature Pulse Rate Respiratory 15 Rate Blood Pressure (mmHg) O2 Sat by Pulse Oximetry Oxygen Devices in Use Now: None Appearance: Male sitting up in bed in NAD Respiratory: Symmetrical Chest Expansion and Respiratory Effort, Clear to Auscultation Cardiovascular: NL Sounds; No Murmurs; No JVD, No Edema Abdominal: NL Sounds; No Tenderness; No Distention Extremities: No Edema Skin: No Rash or Ulcers Neurological: Alert and Oriented x 3, NL Muscle Strength and Tone Nutrition: Taking PO's Result Diagrams: 06/01/16 06:13 06/01/16 06:13 Additional Lab and Data: Lab Results 05/30/16 05/30/16 05/30/16 Range/Units 23:10 23:10 23:10 WBC 10.3 (3.5-10.8) 10^3/ul RBC 4.90 (4.0-5.4) 10^6/ul Hgb 15.7 (14.0-18.0) g/dl Hct 47 (42-52) % MCV 96 H (80-94) fL MCH 32 H (27-31) pg MCHC 34 (31-36) g/dl RDW 14 (10.5-15) % Plt Count 264 (150-450) 10^3/ul MPV 9 (7.4-10.4) um3 Neut % (Auto) 86.5 H (38-83) % Lymph % (Auto) 5.9 L (25-47) % [place] % (Auto) 6.7 (1-9) % Eos % (Auto) 0.3 (0-6) % Baso % (Auto) 0.6 (0-2) % Absolute Neuts (auto) 8.9 H (1.5-7.7) 10^3/ul Absolute Lymphs (auto) 0.6 L (1.0-4.8) 10^3/ul Absolute Monos (auto) 0.7 (0-0.8) 10^3/ul Absolute Eos (auto) 0 (0-0.6) 10^3/ul Absolute Basos (auto) 0.1 (0-0.2) 10^3/ul Absolute Nucleated RBC 0.01 10^3/ul Nucleated RBC % 0.1 INR (Anticoag Therapy) (0.89-1.11) Sodium 133 (133-145) mmol/L Potassium 4.9 (3.5-5.0) mmol/L Chloride 96 L (101-111) mmol/L Carbon Dioxide 24 (22-32) mmol/L Anion Gap 13 H (2-11) mmol/L BUN 56 H (6-24) mg/dL Creatinine 2.36 H (0.67-1.17) mg/dL Est GFR ( Amer) 37.0 (>60) Est GFR (Non-Af Amer) 28.8 (>60) BUN/Creatinine Ratio 23.7 H (8-20) Glucose 330 H (70-100) mg/dL Lactic Acid 3.2 H* (0.5-2.0) mmol/L Calcium 10.6 H (8.6-10.3) mg/dL Magnesium 1.8 L (1.9-2.7) mg/dL Total Bilirubin 0.80 (0.2-1.0) mg/dL AST 14 (13-39) U/L ALT 21 (7-52) U/L Alkaline Phosphatase 54 (34-104) U/L Troponin I 0.03 (<0.04) ng/mL C-Reactive Protein 19.63 H (< 5.00) mg/L B-Natriuretic Peptide ( - 100) pg/mL Total Protein 8.7 (6.4-8.9) g/dL Albumin 4.4 (3.2-5.2) g/dL Globulin 4.3 H (2-4) g/dL Albumin/Globulin Ratio 1.0 (1-3) Amylase 70 (29-103) U/L Lipase 33 (11.0-82.0) U/L 05/30/16 05/30/16 Range/Units 23:10 23:10 WBC (3.5-10.8) 10^3/ul RBC (4.0-5.4) 10^6/ul Hgb (14.0-18.0) g/dl Hct (42-52) % MCV (80-94) fL MCH (27-31) pg MCHC (31-36) g/dl RDW (10.5-15) % Plt Count (150-450) 10^3/ul MPV (7.4-10.4) um3 Neut % (Auto) (38-83) % Lymph % (Auto) (25-47) % [place] % (Auto) (1-9) % Eos % (Auto) (0-6) % Baso % (Auto) (0-2) % Absolute Neuts (auto) (1.5-7.7) 10^3/ul Absolute Lymphs (auto) (1.0-4.8) 10^3/ul Absolute Monos (auto) (0-0.8) 10^3/ul Absolute Eos (auto) (0-0.6) 10^3/ul Absolute Basos (auto) (0-0.2) 10^3/ul Absolute Nucleated RBC 10^3/ul Nucleated RBC % INR (Anticoag Therapy) 2.98 H (0.89-1.11) Sodium (133-145) mmol/L Potassium (3.5-5.0) mmol/L Chloride (101-111) mmol/L Carbon Dioxide (22-32) mmol/L Anion Gap (2-11) mmol/L BUN (6-24) mg/dL Creatinine (0.67-1.17) mg/dL Est GFR ( Amer) (>60) Est GFR (Non-Af Amer) (>60) BUN/Creatinine Ratio (8-20) Glucose (70-100) mg/dL Lactic Acid (0.5-2.0) mmol/L Calcium (8.6-10.3) mg/dL Magnesium (1.9-2.7) mg/dL Total Bilirubin (0.2-1.0) mg/dL AST (13-39) U/L ALT (7-52) U/L Alkaline Phosphatase (34-104) U/L Troponin I (<0.04) ng/mL C-Reactive Protein (< 5.00) mg/L B-Natriuretic Peptide 127 H ( - 100) pg/mL Total Protein (6.4-8.9) g/dL Albumin (3.2-5.2) g/dL Globulin (2-4) g/dL Albumin/Globulin Ratio (1-3) Amylase (29-103) U/L Lipase (11.0-82.0) U/L Microbiology and Other Data: Microbiology 05/31/16 11:10 Influenza Types A,B Antigen (RITA) - Final Nasal Specimen received for Influenza A/B Molecular testing Assess/Plan/Problems-Billing Assessment: Mr. Cordon is a 55 yo male with a PMH of dilated cardiomyopathy, pericarditis , atrial fib, COPD, DM, NEAL, HTN, CKD, HLD, and ETOH abuse who left AMA on after undergoing stress test and returned with concern for n/v and abdominal pain; pt also found to have CASTRO. - Patient Problems (1) Abdominal pain with vomiting Comment: Resolved. Questionable etiology, possibly gastroenteritis. No fevers or leukocytosis. (2) Chest pain Comment: Stress test 05/30/16 showed suspicion for anterior wall ischemia, mildly enlarged chamber size and low EF. Consult by Dr. Carmen 05/30 indicates no further cardiac workup is necessary and recommends outpatient cardiology follow- up. EKG showed no acute ischemic changes and serial troponins were negative. His chest pain appears to be musculoskeletal as his spent >1 hour working with his arms above his head and developed left shoulder pain radiating to his chest , but he does have risk factors for CAD. (3) NEAL (obstructive sleep apnea) Comment: Continue home CPAP use. (4) CKD (chronic kidney disease) stage 3, GFR 30-59 ml/min Comment: Resolved. Suspect secondary to dehydration. (5) Left shoulder pain Comment: Likely musculoskeletal due to exertion. Continue pain management and warm packs. No sign of infection. (6) Atrial fibrillation Comment: Rate controlled. Continue metopolol and warfarin. (7) COPD (chronic obstructive pulmonary disease) Comment: Stable. Continue bronchodilators and inhaled steroids. (8) HTN (hypertension) Comment: Well controlled. Continue Aliskiren, metoprolol, diuretics, amlodipine , clonidine. (9) Type 2 diabetes mellitus Comment: HgbA1c is 8.8 despite hefty regimen. Continue Lantus, and Lispro SS. Resume glimeperide and metformin. Diabetes education follow-up with [facility] upon discharge. (10) DVT prophylaxis Comment: Warfarin, INR 4, reduced dose. (11) Full code status Status and Disposition: Discharge to home.
[2016-06-01] MEDS ORDERED: Warfarin TAB(*) 7.5 MG PO SCH (17:00)
--- NOTE | 2016-06-02 06:27 | DS ---
DISCHARGE SUMMARY: DATE OF ADMISSION: 05/31/16 DATE OF DISCHARGE: 06/01/16 PRIMARY CARE PHYSICIAN: Dr. Do. ATTENDING PHYSICIAN: Dr. Josesito Chavis* (dictation provided by Brenda Valentine NP ). PRIMARY DIAGNOSIS: Acute nausea, vomiting with suspected viral gastroenteritis , now resolved. SECONDARY DIAGNOSES: 1. Left shoulder pain. 2. Recent workup with abnormal stress test on 05/30/16 secondary to left shoulder and chest pain with recommendations to follow up with outpatient Cardiology. 3. Dilated cardiomyopathy. 4. History of pericarditis. 5. Atrial fibrillation, on warfarin. 6. Chronic obstructive pulmonary disease. 7. Insulin dependent type 2 diabetes. 8. Obstructive sleep apnea, on CPAP. 9. Hypertension. 10. Chronic kidney disease stage 3A. 11. Hyperlipidemia. 12. Seronegative rheumatoid arthritis. 13. History of alcohol abuse. MEDICATIONS: 1. Tylenol 325 mg p.o. q.6 hours. p.r.n. 2. Humira Pen 40 mg subcutaneously weekly. 3. Combivent inhaler 2 puffs inhaled 4 times a day. 4. Fexofenadine 60 mg p.o. b.i.d. 5. Fluticasone HFA 110 mcg 2 puffs inhaled b.i.d. 6. Fluticasone nasal spray 2 sprays both nares daily. 7. Furosemide 80 mg p.o. daily. 8. Methotrexate 15 mg p.o. weekly. 9. Mometasone 220 mcg 1 puff inhaled b.i.d. 10. Triamcinolone 0.1% applied topically b.i.d. 11. Metformin 1000 mg p.o. b.i.d. 12. Aliskiren 150 mg p.o. q.a.m. 13. Folic acid 1 mg p.o. daily. 14. Glimepiride 4 mg p.o. b.i.d. 15. Hydroxychloroquine 200 mg p.o. b.i.d. 16. Lorazepam 0.5 mg p.o. q.6 hours p.r.n. 17. Magnesium oxide 400 mg b.i.d. 18. Metolazone 2.5 mg p.o. daily. 19. Metoprolol tartrate 100 mg p.o. b.i.d. 20. Oxycodone IR 10 mg p.o. q.6 hours. 21. Polyethylene glycol 17 g p.o. daily. 22. Simvastatin 20 mg p.o. at bedtime. 23. Spironolactone 50 mg p.o. b.i.d. 24. Amlodipine 10 mg p.o. daily. 25. Clonidine 0.3 mg p.o. t.i.d. 26. Guaifenesin 600 mg p.o. b.i.d. 27. Lantus insulin 150 units subcutaneously at bedtime. HOSPITAL COURSE: Mr. Cordon is a 55-year-old male who originally presented to our emergency room on 05/26/16 with complaint of left shoulder pain radiating into his chest. Please see the dictated H and P from Dr. Jose Ybarra for complete details. In brief, there was concern that the patient' s left-sided chest pain was related to acute coronary syndrome. I will note the patient had reported muscle strain related to pipe fitting immediately prior to the onset of the pain. Regardless, he was admitted to the hospital. He had troponin that was 0.01, 0.02 and 0.03. He had an EKG, which showed no evidence of ischemia. He went on for a stress test on 05/30/16, which was read as follows: Mildly limited examination, findings suspicious for anterior wall ischemia, mildly enlarged chamber size with normal low ejection fraction. The patient was seen in consultation by Dr. Carmen and I refer you to his note for full details. In brief, Dr. Carmen felt that the patient's symptoms are actually related to musculoskeletal injury as had been inspected on admission. He did not believe that any of the pain was related to cardiac disease, although his stress test was mildly abnormal. At this point, he felt that further cardiac workup was not indicated inpatient, that the patient with follow up with Cardiology at [place] per his request rather than with Dr. Carmen' s office. At the time of planned discharge for Mr. Cordon, he suddenly became tachycardic and sweaty. Our recommendation was that he stay in the hospital. The patient was very concerned about an impending blizzard and decided to leave against medical advice. Mr. Cordon states as soon as he got home, he developed severe nausea and vomiting he states he had vomited in over 2 decades. When this did not resolve immediately, he returned to the emergency room for evaluation. On his return, his troponin remained at 0.03. His EKG showed no evidence of ischemia. He went on for abdominal and pelvis CT, which showed the following: "Diverticulosis, bilateral nonobstructing renal calyceal stones." He also had a renal ultrasound, which showed the sonogram does not identify renal calculi or obstructions. Small minimally complicated left renal cyst. The patient also had an increase in his creatinine to 2.36 where it has been 1.12 two days prior. It was suspected that he had viral gastroenteritis with dehydration. The patient responded well to intravenous fluids. The patient has no further nausea and vomiting. He slept well through the night. He has been tolerating oral intake well. He has continued discomfort in his left shoulder. No pain in the chest. He is complaining of a pain at the jaw on the left, but this is pinpoint pain at the level of the muscle, which is reproducible with palpation. Mr. Cordon is medically stable for discharge to home. I suspect he had occasional acute viral gastroenteritis. Plans are for him to follow up with Dr. Do regarding Cardiology followup through [place]. The patient's creatinine did come down today, it is 1.19, which is his baseline. I am therefore continuing his metformin. We will monitor his creatinine closely and adjust or discontinue that medication as indicated. I will note that the patient's INR buffy today. It was 2.90 yesterday and now it is 4.08. I suspect this is secondary to his nausea, vomiting, and decreased oral intake. I have decreased his warfarin down from a home dose of 3.75 mg alternating with 7.5 mg to 2 mg and I have asked if he have his INR checked at the latest on Sunday. DISPOSITION: To home. DIET: Consistent carbohydrate, low fat, low salt. ACTIVITY: As tolerated. FOLLOWUP PLAN: 1. Please follow up with Dr. Do regarding obtaining a medical sales associate for followup of abnormal stress testing. 2. Please follow up with INR as last INR was 4.08. TIME SPENT: Approximately 60 minutes were spent on the discharge of this patient; more than half time was spent with him at the bedside reviewing the events leading up to this hospitalization, performing the physical examination, and reviewing the plan of care. BRENDA VALENTINE NP CC: Dr. Do* [id number]/[facility] #: [id number] [place]
== END 2016-06-01 17:15 | disposition home or self-care (01) ==
LOC: ED 22:42 → INTOOBSV 05-31 01:17 → MED 05-31 01:17
PROVIDERS: ADMIT Hospitalist; ATTEND Internal Medicine
DX: R10.12 Left upper quadrant pain (principal); R11.2 Nausea with vomiting, unspecified; E86.0 Dehydration; M25.512 Pain in left shoulder; I42.0 Dilated cardiomyopathy; I48.91 Unspecified atrial fibrillation; Z79.01 Long term (current) use of anticoagulants; J44.9 Chronic obstructive pulmonary disease, unspecified; I12.9 Hypertensive chronic kidney disease with stage 1 through stage 4 chronic kidney disease, or unspecified chronic kidney disease; E11.22 Type 2 diabetes mellitus with diabetic chronic kidney disease; Z79.4 Long term (current) use of insulin; N20.0 Calculus of kidney; G47.33 Obstructive sleep apnea (adult) (pediatric); N18.3 Chronic kidney disease, stage 3 (moderate); E78.5 Hyperlipidemia, unspecified; M06.00 Rheumatoid arthritis without rheumatoid factor, unspecified site; F10.21 Alcohol dependence, in remission
CPT/HCPCS: 36415; 71020; 74176; 76775; 80048; 80053; 81003; 81015; 82150; 82947; 83605; 83690; 83735; 83880; 84484; 85025; 85610; 86140; 87040; 87502; 93005; 94640; 96374; 96375; 99285; A9270-GY; G0378; J1170; J2060; J2270; J2405

== ENCOUNTER 2017-09-27 16:35 | Emergency (ER) | payer OTHER ==
--- NOTE | 2017-09-27 20:13 | ED ---
Skin Complaint - HPI Summary HPI Summary: Patient complains of groin rash involving scrotum and bilateral inguinal creases 1 week, that has progressed to right side gluteal cleft, bilateral superior head, mouth. Rashes intermittently mildly pruritic and painful with contact. Denies fever, eye pain, vision change, cough, CP, SOB, N/V/D, abdominal pain, change in urine. History of CHF, RA, A. fib, COPD, DM, HTN, CK D stage III, apnea. Denies sexual activity for over 1 year. Denies history of herpes - History of Current Complaint Chief Complaint: EDRashSkinAbscess Time Seen by Provider: 09/27/17 19:35 Stated Complaint: RASH/PAIN RT LEG Hx Obtained From: Patient Onset/Duration: Started Days Ago Timing: Constant Onset Severity: Mild Current Severity: Severe Pain Intensity: 9 Pain Scale Used: 0-10 Numeric Skin Location: Diffuse Aggravating Symptom(s): Touch Alleviating Symptom(s): Nothing Associated Signs & Symptoms: Rash - Additional Pertinent History Primary Care Physician: MARIIA - Allergy/Home Medications Allergies/Adverse Reactions: Allergies Allergy/AdvReac Type Severity Reaction Status Date / Time tiotropium Allergy lightheaded Verified 09/27/17 16:55 [From [facility] with ness HandiHaler] PMH/Surg Hx/FS Hx/Imm Hx Endocrine/Hematology History: Reports: Hx Anticoagulant Therapy, Hx Diabetes Denies: Hx Anemia, Hx Unexplained Bleeding Cardiovascular History: Reports: Hx Cardiomegaly - dilated cardiomyopathy, Hx Hypercholesterolemia, Hx Hypertension, Other Cardiovascular Problems/Disorders - HX PERICARDIAL EFFUSION Denies: Hx Aneurysm, Hx Angina, Hx Angioplasty, Hx Auto Implanted Cardiovert Defib, Hx Cardiac Arrest, Hx Congenital Heart Disease, Hx Congestive Heart Failure, Hx Coronary Artery Disease, Hx Deep Vein Thrombosis, Hx Embolism, Hx Hypotension, Hx Pacemaker/ICD, Hx Peripheral Vascular Disease, Hx Rheumatic Fever, Hx Syncope, Hx Valvular Heart Disease Respiratory History: Reports: Hx Asthma, Hx Chronic Obstructive Pulmonary Disease (COPD), Hx Pneumonia, Hx Sleep Apnea - CPAP, 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 Denies: Hx Chronic Bronchitis, Hx Cystic Fibrosis, Hx Lung Cancer, Hx Pleural Effusion, Hx Pulmonary Edema, Hx Pulmonary Embolism, Hx Seasonal Allergies GI History: Reports: Other GI Disorders - hx fatty liver History: Reports: Hx Acute Renal Failure, Other Problems/Disorders - hx Proteinuria, problems with erection Denies: Hx Benign Prostatic Hyperplasia, Hx Chronic Renal Failure, Hx Dialysis, Hx Kidney Infection, Hx Kidney Stones Musculoskeletal History: Reports: Hx Arthritis - rheumatoid, osteo, Hx Orthopedic Injury Denies: Hx Back Problems, Hx Bursitis, Hx Congenital Bone Abnormalities, Hx Fibromyalgia, Hx Gout, Hx Osteoporosis, Hx Scoliosis, Hx Tendonitis Sensory History: Reports: Hx Contacts or Glasses, Hx Vision Problem Denies: Hx Cataracts, Hx Eye Injury, Hx Eye Prosthesis, Hx Glaucoma, Hx Legally Blind, Hx Macular Degeneration, Hx Deafness, Hx Hearing Aid, Hx Hearing Problem, Other Sensory Impairments Opthamlomology History: Reports: Hx Contacts or Glasses, Hx Vision Problem Denies: Hx Cataracts, Hx Eye Injury, Hx Eye Prosthesis, Hx Glaucoma, Hx Legally Blind, Hx Macular Degeneration, Other Sensory Impairments Psychiatric History: Reports: Hx Anxiety, Hx Depression Denies: Hx Attention Deficit Hyperactivity Disorder, Hx Eating Disorder, Hx Panic Disorder, Hx Post Traumatic Stress Disorder, Hx Inpatient Treatment, Hx Community Mental Health Tx, Hx Schizophrenia, Hx Bipolar Disorder, Hx Suicide Attempt, Hx of Violent Episodes Against Others, Hx Substance Abuse, Other Psychiatric Issues/Disorders - Cancer History Hx Chemotherapy: No Hx Radiation Therapy: No Hx Palliative Cancer Treatment: No - Surgical History Surgery Procedure, Year, and Place: L ankle surg w/screws Hx Anesthesia Reactions: No Infectious Disease History: No Infectious Disease History: Denies: Hx Clostridium Difficile, Hx Hepatitis, Hx Human Immunodeficiency Virus (HIV), Hx of Known/Suspected MRSA, Hx Shingles, Hx Tuberculosis, Hx Known/ Suspected VRE, Hx Known/Suspected VRSA, History Other Infectious Disease, Traveled Outside the [place] in Last 30 Days - Family History Known Family History: Positive: Cardiac Disease, Diabetes - Social History Alcohol Use: Weekly Alcohol Amount: 4-5 drinks per week Substance Use Type: Reports: None Substance Use Comment - Amount & Last Used: very infrequently Smoking Status (MU): Current Every Day Smoker Type: Cigarettes Amount Used/How Often: 1 pack every 3-4 days Length of Time of Smoking/Using Tobacco: 28 Have You Smoked in the Last Year: Yes - occasional use Review of Systems Constitutional: Negative Eyes: Negative Positive: Sore Throat Cardiovascular: Negative Respiratory: Negative Gastrointestinal: Negative Genitourinary: Negative Musculoskeletal: Negative Positive: Rash Neurological: Negative Psychological: Normal All Other Systems Reviewed And Are Negative: Yes Physical Exam - Summary Physical Exam Summary: Head vesicular rash to scrotum, bilateral inguinal area, right side gluteal cleft, bilateral superior head. 2-3 vesicular lesions on roof of mouth. Triage Information Reviewed: Yes Vital Signs On Initial Exam: Initial Vitals Temp Pulse Resp BP Pulse Ox 97.6 F 65 16 109/53 95 09/27/17 16:48 09/27/17 16:48 09/27/17 16:48 09/27/17 16:48 09/27/17 16:48 Vital Signs Reviewed: Yes Appearance: Positive: Well-Appearing Skin: Positive: Warm Head/Face: Positive: Normal Head/Face Inspection Eyes: Positive: Normal ENT: Positive: Other Neck: Positive: Supple Respiratory/Lung Sounds: Positive: Clear to Auscultation Cardiovascular: Positive: Normal Abdomen Description: Positive: Nontender Musculoskeletal: Positive: Normal Neurological: Positive: Normal Psychiatric: Positive: Normal AVPU Assessment: Alert - [place] Coma Scale Best Eye Response: 4 - Spontaneous Best Motor Response: 6 - Obeys Commands Best Verbal Response: 5 - Oriented Coma Scale Total: 15 Diagnostics - Vital Signs Vital Signs Temp Pulse Resp BP Pulse Ox 09/27/17 16:48 97.6 F 65 16 109/53 95 - Laboratory Lab Statement: Any lab studies that have been ordered have been reviewed, and results considered in the medical decision making process. Course/Dx - Course Course Of Treatment: Patient complains of groin rash involving scrotum and bilateral inguinal creases 1 week, that has progressed to right side gluteal cleft, bilateral superior head, mouth. Rashes intermittently mildly pruritic and painful with contact. Denies fever, eye pain, vision change, cough, CP, SOB , N/V/D, abdominal pain, change in urine. History of CHF, RA, A. fib, COPD, DM , HTN, CK D stage III, apnea. Denies sexual activity for over 1 year. Denies history of herpes. PE: Red vesicular rash to scrotum, bilateral inguinal and intertriginous area, right side gluteal cleft, bilateral superior head. 2-3 vesicular lesions on roof of mouth. Vital signs within normal limits and stable. Rx for Diflucan 150 MG by mouth weekly 2 weeks. Rx for Keflex 3 times a day 5 days to cover possible secondary bacterial infection. - Diagnoses Provider Diagnoses: Elsi infection Discharge - Sign-Out/Discharge Documenting (check all that apply): Patient Departure - Discharge Plan Condition: Stable Disposition: HOME Prescriptions: Cephalexin CAP* [Keflex CAP*] 500 mg PO TID 5 Days #15 cap Fluconazole [Diflucan] 150 mg PO WEEKLY 14 Days #2 tablet Patient Education Materials: Oral Candidiasis (ED), Yeast Infection (ED), Skin Yeast Infection (ED) Referrals: Torres Do MD [Primary Care Provider] - Additional Instructions: Follow-up with primary care. Return to the ED for any new or worsening symptoms - Billing Disposition and Condition Condition: STABLE Disposition: Home
[2017-09-27] MEDS ORDERED: Fluconazole 150 MG (NF) 150 MG TAB PO ONE (20:41)
[2017-09-27] MEDS ORDERED: Cephalexin CAP* 500 MG PO ONE (20:43)
[2017-09-27] MEDS ORDERED: Acetaminophen TAB* 325 MG PO ONE (20:59)
[2017-09-27 21:01] VITALS: BP 146/79
== END 2017-09-27 21:00 | disposition home or self-care (01) ==
LOC: ED 16:35
DX: B37.49 Other urogenital candidiasis (principal); B37.0 Candidal stomatitis; B37.2 Candidiasis of skin and nail; I13.0 Hypertensive heart and chronic kidney disease with heart failure and stage 1 through stage 4 chronic kidney disease, or unspecified chronic kidney disease; I50.9 Heart failure, unspecified; N18.3 Chronic kidney disease, stage 3 (moderate); E11.22 Type 2 diabetes mellitus with diabetic chronic kidney disease; J44.9 Chronic obstructive pulmonary disease, unspecified; R06.81 Apnea, not elsewhere classified; M06.9 Rheumatoid arthritis, unspecified; I48.91 Unspecified atrial fibrillation; F17.210 Nicotine dependence, cigarettes, uncomplicated; Z88.8 Allergy status to other drugs, medicaments and biological substances
CPT/HCPCS: 99282; A9270-GY

== ENCOUNTER 2018-06-28 19:56 | Inpatient (IN) | payer OTHER ==
--- NOTE | 2018-06-28 20:36 | ED ---
Complex/Multi-Sys Presentation - HPI Summary HPI Summary: A 57 y/o male brought in by [facility] ambulance presents to [facility] with a chief complaint of joint pain since yesterday. He claims that he has not been able to walk since yesterday and hasnt been able to get around well in the last month. At triage he rated his pain as a 9/10 in severity. He reports that he is not on methotrexate even though that used to alleviate his pain because he has cardiac problems and his PCP stopped prescribing it. He has bilateral edema. He thinks that if he gets his pain under control he would be able to walk at home. He is on 3L O2 at home. He claims that at home he is on 300mg Morphine extended release and is on 5mg Oxycodone. He claims that he was on Prednisone for lung problems. - History Of Current Complaint Chief Complaint: EDWeakness Time Seen by Provider: 06/28/18 20:10 Hx Obtained From: Patient Onset/Duration: Sudden Onset, Lasting Days, Still Present Timing: Constant Severity Currently: Severe Severity Initially: Severe Location: Pain At: - joint pain Aggravating Factor(s): nothing Alleviating Factor(s): nothing Associated Signs And Symptoms: Positive: Edema. Negative: Fever - Allergies/Home Medications Allergies/Adverse Reactions: Allergies Allergy/AdvReac Type Severity Reaction Status Date / Time tiotropium Allergy lightheaded Verified 04/25/18 15:46 [From [facility] with ness [facility]] PMH/Surg Hx/FS Hx/Imm Hx Endocrine/Hematology History: Reports: Hx Anticoagulant Therapy, Hx Diabetes Denies: Hx Anemia, Hx Unexplained Bleeding Cardiovascular History: Reports: Hx Cardiomegaly - dilated cardiomyopathy, Hx Congestive Heart Failure - Currently, Hx Hypercholesterolemia, Hx Hypertension, Other Cardiovascular Problems/Disorders - HX PERICARDIAL EFFUSION Denies: Hx Aneurysm, Hx Angina, Hx Angioplasty, Hx Auto Implanted Cardiovert Defib, Hx Cardiac Arrest, Hx Congenital Heart Disease, Hx Coronary Artery Disease, Hx Deep Vein Thrombosis, Hx Embolism, Hx Hypotension, Hx Pacemaker/ICD , Hx Peripheral Vascular Disease, Hx Rheumatic Fever, Hx Syncope, Hx Valvular Heart Disease Respiratory History: Reports: Hx Asthma, Hx Chronic Obstructive Pulmonary Disease (COPD), Hx Pneumonia, Hx Sleep Apnea - CPAP, 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 Denies: Hx Chronic Bronchitis, Hx Cystic Fibrosis, Hx Lung Cancer, Hx Pleural Effusion, Hx Pulmonary Edema, Hx Pulmonary Embolism, Hx Seasonal Allergies GI History: Reports: Other GI Disorders - hx fatty liver History: Reports: Hx Acute Renal Failure, Other Problems/Disorders - hx Proteinuria, problems with erection Denies: Hx Benign Prostatic Hyperplasia, Hx Chronic Renal Failure, Hx Dialysis, Hx Kidney Infection, Hx Kidney Stones Musculoskeletal History: Reports: Hx Arthritis - rheumatoid, osteo, Hx Orthopedic Injury Denies: Hx Back Problems, Hx Bursitis, Hx Congenital Bone Abnormalities, Hx Fibromyalgia, Hx Gout, Hx Osteoporosis, Hx Scoliosis, Hx Tendonitis Sensory History: Reports: Hx Contacts or Glasses, Hx Vision Problem Denies: Hx Cataracts, Hx Eye Injury, Hx Eye Prosthesis, Hx Glaucoma, Hx Legally Blind, Hx Macular Degeneration, Hx Deafness, Hx Hearing Aid, Hx Hearing Problem, Other Sensory Impairments Opthamlomology History: Reports: Hx Contacts or Glasses, Hx Vision Problem Denies: Hx Cataracts, Hx Eye Injury, Hx Eye Prosthesis, Hx Glaucoma, Hx Legally Blind, Hx Macular Degeneration, Other Sensory Impairments Psychiatric History: Reports: Hx Anxiety, Hx Depression Denies: Hx Attention Deficit Hyperactivity Disorder, Hx Eating Disorder, Hx Panic Disorder, Hx Post Traumatic Stress Disorder, Hx Inpatient Treatment, Hx Community Mental Health Tx, Hx Schizophrenia, Hx Bipolar Disorder, Hx Suicide Attempt, Hx of Violent Episodes Against Others, Hx Substance Abuse, Other Psychiatric Issues/Disorders - Cancer History Hx Chemotherapy: No Hx Radiation Therapy: No Hx Palliative Cancer Treatment: No - Surgical History Surgery Procedure, Year, and Place: L ankle surg w/screws Hx Anesthesia Reactions: No Infectious Disease History: No Infectious Disease History: Denies: Hx Clostridium Difficile, Hx Hepatitis, Hx Human Immunodeficiency Virus (HIV), Hx of Known/Suspected MRSA, Hx Shingles, Hx Tuberculosis, Hx Known/ Suspected VRE, Hx Known/Suspected VRSA, History Other Infectious Disease, Traveled Outside the [place] in Last 30 Days - Family History Known Family History: Positive: Cardiac Disease, Diabetes - Social History Alcohol Use: Rare Alcohol Amount: 4-5 drinks per week Substance Use Type: Reports: None Substance Use Comment - Amount & Last Used: very infrequently Smoking Status (MU): Former Smoker Type: Cigarettes Amount Used/How Often: 2-3 cigarettes per day Length of Time of Smoking/Using Tobacco: 28 Have You Smoked in the Last Year: Yes Review of Systems Negative: Fever Positive: Edema, Other - positive: joint pain All Other Systems Reviewed And Are Negative: Yes Physical Exam - Summary Physical Exam Summary: Constitutional: Well-developed, Well-nourished, Alert. (-) Distressed Skin: Warm, Dry HENT: Normocephalic; Atraumatic Eyes: Conjunctiva normal Neck: Musculoskeletal ROM normal neck. (-) JVD, (-) Stridor, (-) Tracheal deviation Cardio: Rhythm regular, rate normal, Heart sounds normal; Intact distal pulses; The pedal pulses are 2+ and symmetric. Radial pulses are 2+ and symmetric. (-) Murmur Pulmonary/Chest wall: nasal cannula in. Effort normal. (-) Respiratory distress , (-) Wheezes, (-) Rales Abd: Soft, (-) tenderness, (-) Distension, (-) Guarding, (-) Rebound Musculoskeletal: ulcer right mahajan draining onto sock Lymph: (-) Cervical adenopathy Neuro: Alert, Oriented x3 Psych: Mood and affect Normal Triage Information Reviewed: Yes Vital Signs On Initial Exam: Initial Vitals Temp Pulse Resp BP Pulse Ox 98.9 F 80 20 146/68 95 06/28/18 20:02 06/28/18 20:02 06/28/18 20:02 06/28/18 20:02 06/28/18 20:02 Vital Signs Reviewed: Yes Diagnostics - Vital Signs Vital Signs Temp Pulse Resp BP Pulse Ox 06/28/18 20:10 80 06/28/18 20:02 98.9 F 80 20 146/68 95 - Laboratory Result Diagrams: 06/28/18 21:09 06/28/18 21:09 Lab Statement: Any lab studies that have been ordered have been reviewed, and results considered in the medical decision making process. - EKG 21:45 Cardiac Rate: Other Rate EKG Rhythm: Atrial Fibrillation Summary of EKG Findings: Atrial fibrillation at 75 bpm, LAD, normal QRS, normal QTc, T-wave flattened in II, aVF, v6 Re-Evaluation - Re-Evaluation First Eval Re-Evaluation Time: 21:55 Change: Unchanged Comment: Discussed results and plan for admission. Complex Multi-Symp Course/Dx Course Of Treatment: A 57 y/o male brought in by [facility] ambulance presents to [facility] with a chief complaint of joint pain since yesterday. He claims that he has not been able to walk since yesterday and hasnt been able to get around well in the last month. The physical exam revealed nasal cannula in, ulcer right mahajan draining onto sock. EKG at 21:45 showed Atrial fibrillation at 75 bpm , LAD, normal QRS, normal QTc, T-wave flattened in II, aVF, v6. Blood work and chemistries obtained. Discussed case with Dr. Segura, hospitalist, who accepted the patient for admission. The patient is agreeable with this plan. - Diagnoses Provider Diagnoses: Unable to ambulate, Rheumatoid arthritis, Cellulitis, Lower extremity pain - Physician Notifications Discussed Care Of Patient With: Chris Segura Time Discussed With Above Provider: 22:24 Instructed by Provider To: Admit As Inpatient Discharge - Sign-Out/Discharge Documenting (check all that apply): Patient Departure - admit Patient Received Moderate/Deep Sedation with Procedure: No - Discharge Plan Condition: Fair Disposition: ADMITTED TO [facility] Referrals: Torres Do MD [Primary Care Provider] - - Billing Disposition and Condition Condition: FAIR Disposition: Admitted to [facility] - Attestation Statements Document Initiated by Lorie: Yes Documenting Scribe: El Wilcox Provider For Whom Scribe is Documenting (Include Credential): Elodia Tse MD Scribe Attestation: I, El Wilcox, scribed for Elodia Tse MD on 06/28/18 at 2248. Scribe Documentation Reviewed: Yes Provider Attestation: The documentation as recorded by the El louise accurately reflects the service I personally performed and the decisions made by me, Elodia Tse MD Status of Scribe Document: Viewed
[2018-06-28 21:30] LABS: Hematocrit 34 % (36-46); Hemoglobin 11.3 g/dL (14.0-18.0); Mean Corpuscular HGB Conc 33 g/dL (31-36); Mean Corpuscular Hemoglobin 32 pg (27-31); Mean Corpuscular Volume 97 fL (80-94); Mean Platelet Volume 9.4 fL (7.4-10.4); Platelet Count 189 10^3/uL (150-450); Red Blood Count 3.53 10^6 /uL (4.18-5.48); Red Cell Distribution Width 15 % (10.5-15)
[2018-06-28 21:50] LABS: Albumin 3.9 g/dL (3.2-5.2); Calcium 9.9 mg/dL (8.6-10.3); EGFR African American 61.2 (>60); EGFR Non-African American 50.6 (>60); Potassium 4.1 mmol/L (3.5-5.0); Total Bilirubin 0.9 mg/dL (0.2-1.0); Total Protein 7.9 g/dL (6.4-8.9)
[2018-06-28 21:55] LABS: ABS Basophils 0.1 10^3/ul (0-0.2); ABS Eosinophils 0.3 10^3/ul (0-0.6); ABS Monocytes 1.8 10^3/ul (0-0.8); ABS Neutrophils 10.8 10^3/ul (1.5-7.7); ABS Nucleated RBC 0 10^3/ul; Eosinophil % 2.4 %; Lymphocyte % 7.3 %; Nucleated Red Blood Cells % 0
[2018-06-28] MEDS: Morphine 4 MG/ML VIAL (1 ml) 4 MG/ML VIAL IV PRN (22:33)
[2018-06-28 22:46] LABS: C Reactive Protein 125.56 mg/L (<8.01)
[2018-06-28] MEDS ORDERED: [UNRECOGNIZED DRUG - OTHER] IVPB ONE (23:00)
[2018-06-28] MEDS ORDERED: ceFAZolin 1 GM ADVAN(*) 1 GM in NS 0.9% 50 ML* 50 ML IVPB SCH (23:00)
[2018-06-28] MEDS ORDERED: CEFAZOLIN IVPB ONE (23:00)
[2018-06-28 23:17] LABS: Urine Appearance Cloudy; Urine Bacteria Absent (Absent); Urine Bilirubin Negative (Negative); Urine Blood 3+ (Negative); Urine Color Yellow; Urine Glucose 3+(>=500 mg/dL) (Negative); Urine Ketones Negative (Negative); Urine Nitrite Negative (Negative); Urine Protein 1+(30 mg/dL) (Negative); Urine Red Blood Cell 3+(>10/hpf) (Absent); Urine Specific Gravity 1.013 (1.010-1.030); Urine Urobilinogen Negative (Negative); Urine White Blood Cell Trace(0-5/hpf) (Absent)
[2018-06-29] MEDS ORDERED: methylPREDNISolone 125 MG* 2 ML VIAL IV ONE (00:09)
[2018-06-29] MEDS ORDERED: LORazepam TAB(*) 0.5 MG PO PRN (00:12)
[2018-06-29] MEDS ORDERED: Morphine 4 MG/ML VIAL (1 ml) 4 MG/ML VIAL IV PRN (00:22)
[2018-06-29] MEDS ORDERED: Dextrose 50% Syringe 50 ML* 25 GM/50 ML SYRINGE IV PUSH PRN (00:36)
[2018-06-29 00:38] LABS: INR 2.22 (0.77-1.02)
[2018-06-29] MEDS: Morphine 4 MG/ML VIAL (1 ml) 4 MG/ML VIAL IV PRN ×3 (03:10→12:59)
[2018-06-29] MEDS: Morphine TAB Extended Release (*) 30 MG TAB.ER PO PRN (03:13)
[2018-06-29] MEDS ORDERED: Insulin LISPRO* 1 UNITS UNIT SUBCUT ONE ×2 (03:30→23:57)
--- NOTE | 2018-06-29 03:31 | HP ---
ADMISSION HISTORY AND PHYSICAL: DATE OF ADMISSION: PRIMARY CARE PROVIDER: Dr. Do. CARE ATTENDANT: Dr. Tori Fierro HEALTHCARE PROXY: Nephew, Lucian. CODE STATUS: Undecided. SOURCE OF INFORMATION: History obtained from interview with patient and review of past medical recor ds from [facility] and as well as our records. RELIABILITY: From patient is poor, from records is good. CHIEF COMPLAINT: Pain all over. HISTORY OF PRESENT ILLNESS: This 57-year-old man with past medical history of seronegative rheumatoi d arthritis diagnosed in 2011 who suffers from chronic pain on high-dose narcotics, followed at the [facility] seemingly without difficulty. He has been in his usual state of health, went out to eat ye sterday for a lunch and then woke up overnight with "horrible pain" that was "full body" including hi s neck, shoulders, elbows, hips, knees, hands, ankles and feet. He denies any fevers, chills or nigh t sweats. No urinary symptoms, diarrhea, cough, shortness of breath. He gives a difficulty history regarding time course of his treatment for his rheumatoid arthritis, additionally diagnosed after pre senting with pericarditis and pleuritis. He was treated with methotrexate and Humira and his Humira was changed to Actemra because of increasing joint symptoms. 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 The patient says he has been unable to see them and has run out of methotrexate as well as Humira for at least several weeks, seeking re-institution of his methotrexate at this time. PAST MEDICAL HISTORY: Includes chronic atrial fibrillation, cardiomyopathy, hypertension, insulin de pendent type 2 diabetes, CKD stage 3, proteinuria, morbid obesity, sleep apnea on CPAP, COPD, chronic respiratory failure, 3 L of oxygen, history of alcohol abuse, pericarditis, seronegative rheumatoid arthritis. CURRENT MEDICATIONS: Reportedly brought medications, which were med rec by nurse. I reviewed his not es from Tori Fierro from October, which are not completely consistent as well as the list that he is carrying in his wallet, which is from 2016, which is not consistent with Tori's either. I recommen d formal of complete reconciliation with his pharmacy as there are discrepancies between what he identifies as his medications in his list and what his prescribing provider has an almost recent n ote. However, current med rec as currently stands after discussion with patient and review of all so urces indicate, 1. Combivent two puffs every 4 hours. 2. Humira 40 mg subcutaneously every 2 weeks. 3. Acetaminophen 1000 mg 3 times a day as needed. 4. Torsemide 40 mg 3 daily. 5. Oxycodone 5 mg four times a day as needed. I-STOP was confirmed, printed out and placed in chart . 6. Metolazone 2.5 mg daily. 7. Lorazepam 0.5 mg every 6 hours as needed. 8. Fluticasone two sprays both nares daily. 9. Fluticasone 10 mcg HFA two puffs twice daily. 10. Glargine 50 units at bedtime confirmed with patient. 11. MiraLax 17 g daily. 12. Metoprolol tartrate 50 mg twice daily. 13. Lexapro 10 mg daily. 14. Methotrexate 50 mg weekly, which patient has not refilled per patient because it was not reorder ed before seeing his provider. 15. Spironolactone 50 mg daily. 16. Morphine sulfate 30 mg three times a day as needed. 17. Glimepiride 4 mg twice daily. 18. Tekturna 150 mg daily. 19. Aspirin 81 mg daily. 20. Amlodipine 10 mg daily. 21. Lyrica 75 mg three times a day as needed. 22. Folic acid 1 mg daily. 23. Coumadin 3.75 mg six times a day except for Sunday which is 7.5 mg daily. 24. Magnesium oxide 400 mg twice daily. 25. Plaquenil 200 mg twice daily. 26. Hydralazine 50 mg three times a day. 27. Metformin 1000 mg twice daily. ALLERGIES: TIOTROPIUM. FAMILY HISTORY: No CVA and mother with CAD. SOCIAL HISTORY: Quit tobacco 2 to 3 months prior. Alcohol, denies all alcohol, previously heavy. D enies illicits. REVIEW OF SYSTEMS: As per HPI includes pain in majority of his body. PHYSICAL EXAMINATION GENERAL: Obese man, lying 70 degrees at bed. Generally in pain but no cardiopulmonary distress. VITAL SIGNS: In the emergency room, blood pressure 146/68 , heart rate is 80, respiratory rate is 20 , 95% on 3 L, T-max 98.9. HEENT: Oropharynx is clear. Dry mucous membranes. Sclerae are anicteric. NECK: Non-elevated JVP. LUNGS: Clear to auscultation. He cannot sit up due to pain. HEART: Regular rate and rhythm. No murmurs, rubs or gallops. ABDOMEN: Soft but obese, nontender, nondistended. EXTREMITIES: Warm and well perfused. He has 2+ bilateral pitting edema, worse in bilateral feet. Dallas wilson has an area of erythema over his pretibial aspect of his lower extremity on the right which is terrance nt. He has no appreciable tenosynovitis or effusions in his elbows, hands, wrists, knees. His hips are difficult to assess as he cannot rollover secondary to pain. His ankles are edematous. He is al ert and oriented x3. His cranial nerves II through XII are intact. DIAGNOSTIC STUDIES/LAB DATA: Labs reviewed. CRP 125. BUN 49, creatinine 1.44, white blood cell co unt of 14, hemoglobin 11.3, platelets 189. ASSESSMENT AND PLAN: This 57-year-old man with past medical history of seronegative rheumatoid arthr itis, congestive heart failure, insulin dependent type 2 diabetes, obstructive sleep apnea, and chron ic atrial fibrillation, presenting with sudden onset full body pain after he did not fill his medicat ions. 1. Rheumatoid arthritis flare. Steroids now. Start prednisone 40 mg in the a.m. Consult Rheumatolo gy in the morning for further assistance, potentially restarting Humira and/or methotrexate or other medication as necessary. Continue home medication pain dosing as well as breakthrough IV morphine. Continue bowel regimen. 2. Heart failure. Continue home medications including metolazone, torsemide, spironolactone, metfor min. Careful attention to volume status. 3. COPD is chronic. Respiratory failure. Continue home medications. 4. Chronic atrial fibrillation. No INR checked in the emergency room. Currently adding on now. Pl an to continue home medication, Coumadin daily tomorrow except for weekly on Wednesdays which is 7.5 mg. Please note the 7.5 mg dose was not ordered. 5. Insulin dependent type 2 diabetes. Continue home glargine. Add sliding scale Lispro, unclear wh y he is also on glimepiride while on long acting insulin. I am holding glimepiride at this point jonnyi le sliding scale is in effect. 6. Lower extremity erythema. I do not appreciate cellulitis at this time. Did receive cefazolin in the emergency room. Continue to follow and re-dose antibiotics and start necessary. 7. DVT prophylaxis: Coumadin. INR is pending. Please note [facility] and [facility] notes have been attached to the chart. [id number]/CPS #: [id number]
--- NOTE | 2018-06-29 04:03 | PN ---
Progress Note - Progress Note Date of Service: 06/29/18 Note: Addendum to H&P: Retaining >400cc urine after admitted to floor with urge to urinate but unable to void. Andre place. Urine already collected in ED and culture pending.
[2018-06-29] MEDS: Pregabalin CAP(*) 25 MG PO PRN (08:52)
[2018-06-29] MEDS: Aliskiren TAB* 150 MG PO SCH (08:53)
[2018-06-29] MEDS: Folic Acid TAB* 1 MG PO SCH (08:53)
[2018-06-29] MEDS: Metolazone TAB* 5 MG PO SCH (08:53)
--- NOTE | 2018-06-29 08:53 | PN ---
Subjective Date of Service: 06/29/18 Interval History: HD#2 on 06/29 ID: 57 yo M PMH seroneg RA previously on biologic/MTX (stopped / to LTFU), chronic pain on [facility] opiate pain medication, atrial fibrillation on AC, HfpEF (last EF 2014 60%, with mild diastolic dysfxn) IDDM, CKD 3, NEAL on CPAP, COPD and chronic resp failure on 3L NC baseline, HTN, anxiety and depression, who presented with presumed RA and pain flare after stopping his DMARDS Overnight: Patient had urinary retention and jeffers placed for 400 PVR, otherwise no acute events. VS concerning for HTN 180/84 otherwise normal on 3L NC, voiding in jeffers now, tolerating PO Labs notable from from 06/28: Mild leukocytosis, CRP elevated at 125, ESR at 97 This morning seen in bed, patient seems sleepy and at times quite tearful when discussing how overwhelmed he has been and complaints of diffuse joint pain, more so in L shoulder and blt feet than anything. no chest pain, no GI sx, has had jeffers placed and no complaints now. On further HPI: pt reports a more subacute decline, pain worsening for several months, also worsening depression, daily tearfulness, denies SI/HI. Objective Active Medications: Acetaminophen (Tylenol Tab*) 975 mg PO TID PRN PRN Reason: PAIN Aliskiren (Tekturna Tab*) 150 mg PO QAM [facility] Amlodipine Besylate (Norvasc Tab*) 10 mg PO DAILY [facility] Aspirin (Aspirin Ec Tab*) 81 mg PO DAILY [facility] Dextrose (D50w Syringe 50 Ml*) 12.5 gm IV PUSH .FOR FS < 60 - SS PRN PRN Reason: FS < 60 Escitalopram Oxalate (Lexapro *) 10 mg PO DAILY [facility] Fluticasone Propionate (Flonase Nasal [place] 50mcg*) 2 spray BOTH NARES DAILY [facility] Folic Acid (Folvite Tab*) 1 mg PO DAILY [facility] Hydralazine HCl (Apresoline Tab*) 50 mg PO TID [facility] Hydroxychloroquine Sulfate (Plaquenil Tab*) 200 mg PO BID [facility] Insulin Glargine (Lantus(*)) 50 units SUBCUT BEDTIME [facility] Insulin Human Lispro (Humalog*) 0 units SUBCUT ACHS [facility]DA; Protocol Lorazepam (Ativan Tab(*)) 0.5 mg PO Q6HR PRN PRN Reason: ANXIETY Magnesium Oxide (Magox 400 Tab*) 400 mg PO BID [facility] Metformin HCl (Glucophage*) 1,000 mg PO BID [facility] Metolazone (Zaroxolyn Tab*) 2.5 mg PO DAILY [facility] Metoprolol Tartrate (Lopressor Tab*) 50 mg PO BID [facility] Mometasone Furoate (Asmanex 220 Mcg Mdi *) 2 puff INH QPM [facility] Morphine Sulfate (Morphine 4 Mg/Ml Vial (1 Ml)) 4 mg IV Q4H PRN PRN Reason: PAIN Last Admin: 06/29/18 03:10 Dose: 4 mg Morphine Sulfate (Ms Contin(*)) 30 mg PO TID PRN PRN Reason: PAIN Last Admin: 06/29/18 03:13 Dose: 30 mg Oxycodone HCl (Roxycodone Tab*) 5 mg PO QID PRN PRN Reason: PAIN Polyethylene Glycol/Electrolytes (Miralax*) 17 gm PO DAILY [facility] Prednisone (Deltasone Tab*) 40 mg PO DAILY [facility] Pregabalin (Lyrica Cap(*)) 75 mg PO TID PRN PRN Reason: PAIN Spironolactone (Aldactone Tab*) 50 mg PO DAILY [facility] Torsemide (Torsemide) 40 mg PO BID [facility] Warfarin Sodium (Coumadin Tab(*)) 3.75 mg PO DAILY@1700 [facility]; Protocol Vital Signs - 8 hr 06/29/18 06/29/18 06/29/18 01:00 02:00 02:15 Temperature 98.1 F Pulse Rate 94 90 95 Respiratory 16 Rate Blood Pressure 127/77 (mmHg) O2 Sat by Pulse 97 99 98 Oximetry 06/29/18 06/29/18 06/29/18 02:20 03:10 03:13 Temperature 99.3 F Pulse Rate 81 Respiratory 22 20 20 Rate Blood Pressure 170/56 (mmHg) O2 Sat by Pulse 97 Oximetry 06/29/18 06/29/18 06/29/18 03:39 04:30 05:15 Temperature Pulse Rate Respiratory 20 20 20 Rate Blood Pressure (mmHg) O2 Sat by Pulse Oximetry 06/29/18 07:29 Temperature Pulse Rate 94 Respiratory 16 Rate Blood Pressure 180/84 (mmHg) O2 Sat by Pulse 100 Oximetry Oxygen Devices in Use Now: Nasal Cannula Appearance: Obese man laying in bed tearful with family at bedside at times sleepy, poor attention span Eyes: No Scleral Icterus, PERRLA, - - 2mm Ears/Nose/Mouth/Throat: Mucous Membranes Moist Neck: NL Appearance and Movements; NL JVP Respiratory: Symmetrical Chest Expansion and Respiratory Effort, - - Distant lung sounds Abdominal: No Hepatosplenomegaly, - - Distended, NABS, no TTP Lymphatic: No Cervical Adenopathy Extremities: - - Pain on movement of joints (knee blt, ankle blt, wrist blt, elbow and shoulder blt), but no real TTP to muscle beds or joints themselves-no overyling skin changes Skin: No Rash or Ulcers Neurological: Alert and Oriented x 3 Lines/Tubes/Other Access: Clean, Dry and Intact Jeffers Result Diagrams: 06/28/18 21:09 06/28/18 21:09 Assess/Plan/Problems-Billing Assessment: 57 yo M PMH seroneg RA previously on biologic/MTX (stopped 2/2 to LTFU), 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 DDx RA flare in setting of stopping DMARD, other infectious source, possible vasculitis - Patient Problems (1) Seronegative rheumatoid arthritis Current Visit: Yes Status: Acute Code(s): M06.00 - RHEUMATOID ARTHRITIS WITHOUT RHEUMATOID FACTOR, [facility] SITE SNOMED Code(s): 461855559 Comment: -Total body pain, L shoulder and feet the worst today, ESR and CRP quite high and no other clear source of infection -On Plaquenil currently -Appreciate rheum consult, sned for other inflammatory markers, CK low less concerning for rhabdo -Started on Prednisone 40mg on 06/28, Day 2/__ on 06/29, hold on initiation of DMARD at this time -Current pain regimen, ER Morphine TID with breakthru Oxy, Lyrica, Tylenol (2) Urinary retention Current Visit: Yes Status: Acute Code(s): R33.9 - RETENTION OF URINE, UNSPECIFIED SNOMED Code(s): 209634638 Comment: -Assume in setting of pain meds in ER -Trial voiding as pain is better controlled, no e.o of infection on UA in ER (3) Type 2 diabetes mellitus Current Visit: No Status: Chronic Comment: -Continue Lantus, and Lispro SS, add Lispro standing with meals 8 U while on pred. -Currently on home Metformin (4) Diastolic heart failure Current Visit: Yes Status: Acute Code(s): I50.30 - UNSPECIFIED DIASTOLIC ( CONGESTIVE) HEART FAILURE SNOMED Code(s): 007557213 Comment: -HFpEF, EF 60% in 2015 with mild relaxation dysfxn -Continue diuretic regimen -BNP ~300s (5) Atrial fibrillation Current Visit: No Status: Chronic Code(s): I48.91 - UNSPECIFIED ATRIAL FIBRILLATION SNOMED Code(s): 22601281 Comment: -Rate controlled. Continue metopolol and warfarin. (6) NEAL (obstructive sleep apnea) Current Visit: No Status: Chronic Code(s): G47.33 - OBSTRUCTIVE SLEEP APNEA (ADULT) (PEDIATRIC) SNOMED Code(s): 30746823 Comment: -Continue home CPAP use. (7) COPD (chronic obstructive pulmonary disease) Current Visit: No Status: Chronic Code(s): J44.9 - CHRONIC OBSTRUCTIVE PULMONARY DISEASE, UNSPECIFIED SNOMED Code(s): 55963170 Comment: -Stable. Continue bronchodilators and inhaled steroids. -O2 dependent -CXR without infiltrate (8) CKD (chronic kidney disease) stage 3, GFR 30-59 ml/min Current Visit: No Status: Acute Code(s): N18.3 - CHRONIC KIDNEY DISEASE, STAGE 3 (MODERATE) SNOMED Code(s): 185695397 Comment: At baseline (9) HTN (hypertension) Current Visit: No Status: Chronic Code(s): I10 - ESSENTIAL (PRIMARY) HYPERTENSION SNOMED Code(s): 47921798 Comment: -Well controlled. Continue Aliskiren, metoprolol, diuretics, amlodipine, hydral TID (10) Anxiety Current Visit: Yes Status: Acute Code(s): F41.9 - ANXIETY DISORDER, UNSPECIFIED SNOMED Code(s): 58731141 Comment: - Worsened over some months, with depression as well - Increase Lexapro to 20mg while in hospital - On review of meds with patient he does not take lorazepam regulalry, in fact used "years old script" unsanctioned-we discuss d/c given high risk opiate/ benzo use and trialiing other anxiolytics - Trial of Hydroxyzine in place of Lorazepam 25mg Q 6 hr PRN (11) DVT prophylaxis Current Visit: No Status: Acute Code(s): IQC6268 - SNOMED Code(s): 062675776 Comment: Warfarin, INR 2 (12) Full code status Current Visit: No Status: Acute Code(s): Z78.9 - OTHER SPECIFIED HEALTH STATUS SNOMED Code(s): 697615238 Status and Disposition: Inpatient, awaiting PT/OT
[2018-06-29] MEDS: metFORMIN* 500 MG TAB PO SCH ×2 (08:54→21:31)
[2018-06-29] MEDS: Insulin LISPRO* 1 UNITS UNIT SUBCUT SCH ×5 (08:58→21:35)
[2018-06-29] MEDS: Torsemide TAB 10 MG PO SCH ×2 (08:59→21:31)
[2018-06-29] MEDS: hydrALAZINE TAB* 25 MG PO SCH ×3 (09:00→21:31)
[2018-06-29] MEDS: Spironolactone TAB* 25 MG PO SCH (09:00)
[2018-06-29] MEDS: amLODIPine TAB* 5 MG PO SCH (09:00)
[2018-06-29] MEDS ORDERED: Escitalopram * 10 MG TAB PO SCH (09:00)
[2018-06-29] MEDS ORDERED: Glimepiride (NF) 2 MG TAB PO SCH (09:00)
[2018-06-29] MEDS: predniSONE TAB* 20 MG PO SCH (09:00)
[2018-06-29] MEDS: Metoprolol Tartrate TAB* 50 mg PO SCH ×2 (09:01→21:32)
[2018-06-29] MEDS: Aspirin EC TAB* 81 MG TAB.EC PO SCH (09:01)
[2018-06-29] MEDS: Hydroxychloroquine TAB* 200 MG PO SCH ×2 (09:01→21:32)
[2018-06-29] MEDS: Magnesium Oxide TAB* 400 MG PO SCH ×2 (09:01→21:32)
[2018-06-29] MEDS: Fluticasone NASAL SPRAY 50MCG* 16 gm SPRAY BTL BOTH NARES SCH (09:04)
[2018-06-29] MEDS: Polyethylene Glycol 3350* 17 GM PACKET PO SCH (09:06)
--- NOTE | 2018-06-29 11:29 | CONSULT ---
Consult Consult: Mr. Cordon is a 57 year old man with long standing seronegative rheumatoid arthritis, with a remote history of pericarditis. He is poorly adherent to therapy and follow up visits. He has been on Humira, which he takes erratically , although he noted that he recently gave himself an injection. He also was on Methotrexate. He was admitted with a severe flare of rheumatoid arthritis; his exam is notable for diffuse tenderness in his shoulders, back and spine and peripheral joints. Synovitis, however, is minimal. He may be having an underlying flare of his RA. His inflammatory markers are very high. At present, all disease modifying drugs for his RA seem very risky in light of his poor adherence, alcohol use, chronic renal insufficiency and cardiomyopathy. I agree with a trial of Prednisone which should be tapered over the next few days depending on clinical improvement. I would check a chest xray to evaluate for other causes of inflammation. 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 Will follow; thanks!
[2018-06-29 12:05] LABS: Glucose Confirmatory 417 mg/dL (70-100)
[2018-06-29 12:21] LABS: Creatine Kinase 76 U/L (10-223)
--- NOTE | 2018-06-29 14:29 | CONS ---
CONSULTATION REPORT: DATE OF CONSULT: 06/29/18 CONSULTING PHYSICIANS: Dr. Segura and Dr. Villarreal. PRIMARY SEO ENGINEER: Gian Cantu NP PRIMARY CARE DOCTOR: Dr. Do. REASON FOR CONSULTATION: Rheumatoid flare. HISTORY OF PRESENT ILLNESS: Mr. Cordon is a 57-year-old man with a longstanding history of seronegative rheumatoid arthritis and a remote history of pericarditis. He has been followed as an outpatient by Gian Cantu NP, operations advisor and also has physicians at the [place]. He has chronic pain as well as his rheumatoid arthritis and in terms of the manifestations of his rheumatoid arthritis, it appears that he has a remote history of pericarditis. He has also had a cardiomyopathy, but not over heart failure. He has been taking his medications erratically and it was difficult to get a complete history, but it appears that his methotrexate has been gradually decreased overtime given his renal insufficiency and alcohol use and also his Humira was changed overtime to Actemra, which did not seem to help then, so it was then changed back. The patient said that he noted some benefit with the Humira taking it on a weekly basis, but was advised to cut back to every 2 weeks. He has had recently increased joint pain and restrictions, so he was able to take a Humira injection a day or so prior to admission, but prior to that, he had taken it about a month ago. He was in his usual state of generalized poor health, but woke up with full body pain including the pain in his neck, especially his left shoulder, but also his right, also his elbows, hips, knees, hands, ankles, and feet. He denied any fever, chills, or sweating , but he could not mobilize. He had no diarrhea or coughing. He was, however, found to have some urinary retention on admission. He does have a longstanding history of chronic pain and as noted above he had been on methotrexate and Humira, which was switched back from Actemra. He had been drinking alcohol, but was trying to cut back as well and he had recently ran out of his methotrexate as well as Humira for several weeks. Currently, he is still in a lot of pain and his inflammatory markers are very high confirming an underlying inflammatory process. He is unable to get around and he has been very restricted. Symptoms are worse throughout the entire day, but with no relief currently. PAST MEDICAL HISTORY: Includes: 1. Chronic atrial fibrillation. 2. Cardiomyopathy. 3. Hypertension. 4. Insulin-dependent type 2 diabetes. 5. Chronic renal disease, stage III. 6. Proteinuria. 7. Morbid obesity. 8. Sleep apnea, on CPAP. 9. COPD. 10. Chronic respiratory failure, on 3 L of oxygen. 11. History of alcohol use. 12. Pericarditis. 13. Seronegative rheumatoid arthritis. CURRENT MEDICATIONS: Included: 1. Combivent 2 puffs every 4 hours. 2. He has been placed currently on prednisone 40 mg daily. 3. He is on Humira, the dose varies between 1 in every 4 weeks. 4. Also methotrexate with various doses, which has recently been cut back. 5. Oxycodone 5 mg 4 times a day. 6. Metolazone. 7. Lorazepam. 8. Fluticasone. 9. Glargine. 10. MiraLax. 11. Metoprolol. 12. Lexapro. 13. Spironolactone. 14. Morphine sulfate. 15. Glimepiride. 16. Tekturna. 17. Aspirin. 18. Amlodipine. 19. Lyrica 75 mg t.i.d. 20. Also he has been on Coumadin. 21. Magnesium oxide. 22. Plaquenil 200 mg twice daily. 23. Hydralazine 50 mg 3 times daily. 24. Metformin at 1000 mg twice daily. ALLERGIES: Include: TIOTROPIUM. FAMILY HISTORY: No cerebrovascular disease, but his mother has coronary artery disease, no immediate family history of rheumatoid arthritis, but there is some arthritis in his family. SOCIAL HISTORY: He quit tobacco use 2 to 3 months prior. He did drink alcohol in the past and had a previous heavy use, but he has been determined to quit and in fact has quit. He denies any illicit drug use. REVIEW OF SYSTEMS: In terms of review of systems, general, he has had increased fatigue and generalized pain. HEENT: No trauma to the eyes or ears. No iritis. Lymph: No adenopathy. Cardiac: No acute chest wall pain. Pulmonary: He does have chronic dyspnea, which is now worse than usual. Abdomen: Denies abdominal symptoms. Musculoskeletal: He does have diffuse pain allover. Neurologic: No focal weakness. He does have mild dysesthesias. : No blood in the urine or stool. He does have some urinary retention as noted. Skin: No new rash, but he does have some venous stasis changes. All other 14-point review of systems were reviewed and were otherwise negative. PHYSICAL EXAM: On physical exam, he is an obese male, lying at 70 degrees in bed and complaining of moderate pain. Able to give some history, but he noted that he is difficult as a historian, but he is able to answer complete sentences and does have some recall in terms of his medical history. His T-max is 98.9, heart rate of 80, blood pressure 146/68, O2 sats 3 L and 95%. In general, he is a pleasant male, in moderate discomfort, sitting up. HEENT exam is normocephalic, atraumatic. Pupils equal, round, and reactive to light and accommodate. Extraocular movements were intact. Lungs were clear to auscultation bilaterally. Cardiovascular exam revealed a regular rate and rhythm, but normal S3 and S4. Point of maximum impulse nondisplaced. He is obese. Abdomen: Soft, obese, nontender, nondistended. No organomegaly. Extremities: Moderate edema with venous stasis changes, left greater than right side foot with extensive dry skin and eczema and onychomycosis. On musculoskeletal exam, he had tenderness of both shoulders with the left grater than right being tender. There is also tenderness in those elbows, MCP joints and PIP joints, but curiously there did not seem to be any synovitis. He does have tenderness in both knees bilaterally as well as the bilateral hips with moderate restriction. Hip joints seem to actually cool on palpation and there is no one definitively swollen joint, although they are diffusely tender. It was difficult to mobilize his back given his range of motion difficulties. DIAGNOSTIC STUDIES/LABORATORY DATA: He had a CRP that was markedly elevated at 125, creatinine of 1.44, hemoglobin was 14, platelets of 189,000. ASSESSMENT: This is a 57-year-old male with a past medical history of seronegative rheumatoid arthritis and history of congestive heart failure, insulin-dependent diabetes mellitus, and chronic atrial fibrillation. He had a sudden onset of full body pain. He does acknowledge that he is poorly adherent to follow up visit as well as his medical regimen. At the present, I would tend to think that he indeed does have a rheumatoid arthritis flare, although he seems to have more pain and synovitis. He is on a prednisone taper, which can be tapered depending on clinical improvement over the next 1 to 2 weeks. In terms of further serologies, given that he is on hydralazine, I would check an antinuclear antibody to rule out drug- induced lupus, which seems unlikely. Also consider other causes for seronegative rheumatoid arthritis and I will check an HLA-B27 to screen for an underlying spondyloarthropathy, and CMV titers to screen for an infectious etiology as he is immunosuppressed. I would also check a chest x-ray just given his acutely inflammatory state to rule out other causes such as a pulmonary or cardiac condition. In terms of disease- modifying therapy, all of them seemed to be at some risk at this point, perhaps even Plaquenil carries some risk given his underlying cardiomyopathy, although he seems to be on a stable dose and his condition has been stable and otherwise it is a safety mod. However, I would be concerned about starting methotrexate again at this point until we know how his creatinine would move in the next 1 to 2 days. He may benefit from trying a novel biologic therapy such as Orencia , especially given his heart failure as this would be safer in the setting of heart failure and also because it perhaps may work a little bit better in seronegative rheumatoid arthritis, although this is controversial. In any case , this should be done as an outpatient not while hospitalized and he will need to establish close followup with this as an outpatient. He will need to have his sugars monitored while on prednisone, which he was being tapered and continue proton-pump inhibitor for gastrointestinal protection. He would benefit from dedicated physical and rehab therapy to help him mobilize his joints as well as counseling on the need to completely abstain from alcohol, which it appears that he is already doing and also he needs counseling and supportive care for his home situation so that he is able to transport himself to clinic visits and here to medical therapy. I also spoke to Dr. Villarreal today about his condition and I recommended screening for rhabdomyolysis. Dr. Villarreal will check a CPK. Hydration may be helpful if it is significantly elevated. I will continue to follow closely [id number]/[facility] #: [id number] [facility]PITALGiovanny
[2018-06-29] MEDS ORDERED: hydrOXYzine HCL TAB* 25 MG PO PRN (15:04)
[2018-06-29] MEDS ORDERED: Insulin LISPRO* 1 UNITS UNIT SUBCUT SCH (16:30)
[2018-06-29] MEDS: Warfarin TAB(*) 7.5 MG PO SCH (17:03)
[2018-06-29] MEDS: Mometasone 220 MCG MDI INH SCH (19:47)
[2018-06-29] MEDS ORDERED: Insulin GLARGINE(*) 1 UNITS UNIT SUBCUT SCH (21:00)
[2018-06-29] MEDS: Insulin GLARGINE(*) 1 UNITS UNIT SUBCUT SCH (21:36)
[2018-06-30] MEDS ORDERED: Insulin LISPRO* 1 UNITS UNIT SUBCUT ONE (00:01)
[2018-06-30] MEDS: Morphine 4 MG/ML VIAL (1 ml) 4 MG/ML VIAL IV PRN ×3 (05:08→17:53)
[2018-06-30 08:20] LABS: ABS Basophils 0 10^3/ul (0-0.2); ABS Eosinophils 0.1 10^3/ul (0-0.6); ABS Lymphocytes 0.8 10^3/ul (1.0-4.8); ABS Monocytes 1.3 10^3/ul (0-0.8); ABS Neutrophils 10.8 10^3/ul (1.5-7.7); ABS Nucleated RBC 0 10^3/ul; Eosinophil % 0.4 %; Hematocrit 35 % (36-46); Hemoglobin 11.4 g/dL (14.0-18.0); Lymphocyte % 6.4 %; Mean Corpuscular HGB Conc 33 g/dL (31-36); Mean Corpuscular Hemoglobin 32 pg (27-31); Mean Corpuscular Volume 96 fL (80-94); Mean Platelet Volume 9.4 fL (7.4-10.4); Nucleated Red Blood Cells % 0; Platelet Count 183 10^3/uL (150-450); Red Cell Distribution Width 14 % (10.5-15)
[2018-06-30 08:25] LABS: BUN/Creatinine Ratio 36.8 (8-20); Calcium 9.9 mg/dL (8.6-10.3); EGFR African American 80.1 (>60); EGFR Non-African American 66.2 (>60); Potassium 3.7 mmol/L (3.5-5.0)
[2018-06-30] MEDS: Insulin LISPRO* 1 UNITS UNIT SUBCUT SCH ×9 (09:17→21:55)
[2018-06-30] MEDS: Spironolactone TAB* 25 MG PO SCH (09:19)
[2018-06-30] MEDS: amLODIPine TAB* 5 MG PO SCH (09:19)
[2018-06-30] MEDS: hydrALAZINE TAB* 25 MG PO SCH ×3 (09:19→21:43)
[2018-06-30] MEDS: Magnesium Oxide TAB* 400 MG PO SCH ×2 (09:19→21:42)
[2018-06-30] MEDS: Torsemide TAB 10 MG PO SCH ×2 (09:19→21:43)
[2018-06-30] MEDS: Folic Acid TAB* 1 MG PO SCH (09:19)
[2018-06-30] MEDS: Metoprolol Tartrate TAB* 50 mg PO SCH ×2 (09:19→21:41)
[2018-06-30] MEDS: predniSONE TAB* 20 MG PO SCH (09:20)
[2018-06-30] MEDS: metFORMIN* 500 MG TAB PO SCH ×2 (09:20→21:41)
[2018-06-30] MEDS: Hydroxychloroquine TAB* 200 MG PO SCH ×2 (09:20→21:43)
[2018-06-30] MEDS: Metolazone TAB* 5 MG PO SCH (09:20)
[2018-06-30] MEDS: Aspirin EC TAB* 81 MG TAB.EC PO SCH (09:21)
[2018-06-30] MEDS: Fluticasone NASAL SPRAY 50MCG* 16 gm SPRAY BTL BOTH NARES SCH (09:22)
[2018-06-30] MEDS: Polyethylene Glycol 3350* 17 GM PACKET PO SCH (09:24)
[2018-06-30] MEDS: Escitalopram * 20 MG TABLET PO SCH (09:24)
[2018-06-30] MEDS: Aliskiren TAB* 150 MG PO SCH (09:28)
[2018-06-30] MEDS: Pregabalin CAP(*) 25 MG PO PRN (09:28)
--- NOTE | 2018-06-30 13:22 | PN ---
Subjective Date of Service: 06/30/18 Interval History: VS: WNL Lab: Leukocytosis, likely due to steroid; H/H low, but stable; Rheum labs pending Pt continues to become tearful when talking, particularly about the amount of pain he is in. States that most of his pain is in R hip, L shoulder, and b/l feet. Pt states that he has been off methotrexate for appx 4 weeks and that he has had decreasing doses of Humira x4 weeks. States he was unable to get to appointments. Currently denies CP, SOB, abd pain, n/v/d/c. States he had a BM yesterday. Still has catheter in. Walked a small amount yesterday, but hasn't walked yet. Objective Active Medications: Acetaminophen (Tylenol Tab*) 975 mg PO TID PRN Aliskiren (Tekturna Tab*) 150 mg PO QAM PANDA Amlodipine Besylate (Norvasc Tab*) 10 mg PO DAILY PANDA Aspirin (Aspirin Ec Tab*) 81 mg PO DAILY PANDA Dextrose (D50w Syringe 50 Ml*) 12.5 gm IV PUSH .FOR FS < 60 - SS PRN Escitalopram Oxalate (Lexapro *) 20 mg PO DAILY PANDA Fluticasone Propionate (Flonase Nasal Fowler 50mcg*) 2 spray BOTH NARES DAILY PANDA Folic Acid (Folvite Tab*) 1 mg PO DAILY PANDA Hydralazine HCl (Apresoline Tab*) 50 mg PO TID PANDA Hydroxychloroquine Sulfate (Plaquenil Tab*) 200 mg PO BID PANDA Hydroxyzine HCl (Atarax Tab*) 25 mg PO Q6H PRN Insulin Glargine (Lantus(*)) 55 units SUBCUT BEDTIME PANDA Insulin Human Lispro (Humalog*) 0 units SUBCUT ACHS PANDA; Protocol Insulin Human Lispro (Humalog*) 10 units SUBCUT ACHS PANDA Magnesium Oxide (Magox 400 Tab*) 400 mg PO BID PANDA Metformin HCl (Glucophage*) 1,000 mg PO BID PANDA Metolazone (Zaroxolyn Tab*) 2.5 mg PO DAILY PANDA Metoprolol Tartrate (Lopressor Tab*) 50 mg PO BID PANDA Mometasone Furoate (Asmanex 220 Mcg Mdi *) 2 puff INH QPM PANDA Morphine Sulfate (Morphine 4 Mg/Ml Vial (1 Ml)) 4 mg IV Q4H PRN Morphine Sulfate (Ms Contin(*)) 30 mg PO TID PRN Oxycodone HCl (Roxycodone Tab*) 5 mg PO QID PRN Polyethylene Glycol/Electrolytes (Miralax*) 17 gm PO DAILY PANDA Prednisone (Deltasone Tab*) 40 mg PO DAILY PANDA Pregabalin (Lyrica Cap(*)) 75 mg PO TID PRN Spironolactone (Aldactone Tab*) 50 mg PO DAILY PANDA Torsemide (Torsemide) 40 mg PO BID PANDA Warfarin Sodium (Coumadin Tab(*)) 3.75 mg PO DAILY@1700 PANDA; Protocol Vital Signs: Temp Pulse Resp BP Pulse Ox 98.1 F 86 16 145/68 99 06/30/18 15:37 06/30/18 15:37 06/30/18 15:37 06/30/18 15:37 06/30/18 15:37 Oxygen Devices in Use Now: Nasal Cannula Appearance: Pt is sitting up in bed in no acute distress. He states he is in pain, and is tearful throughout our conversation. He is able to move all extremities, but appears uncomfortable when doing so. Eyes: No Scleral Icterus, PERRLA Ears/Nose/Mouth/Throat: NL Teeth, Lips, Gums, Clear Oropharnyx, Mucous Membranes Moist Neck: NL Appearance and Movements; NL JVP, Trachea Midline Respiratory: Symmetrical Chest Expansion and Respiratory Effort, Clear to Auscultation Cardiovascular: NL Sounds; No Murmurs; No JVD, RRR Abdominal: NL Sounds; No Tenderness; No Distention, No Hepatosplenomegaly Extremities: No Clubbing, Cyanosis, - - RLE wound appears noninfected. Dressing is CDI. B/l LE edema 1+ pitting Skin: No Rash or Ulcers Neurological: Alert and Oriented x 3, NL Muscle Strength and Tone, - - Able to move all extremities, but has painful ROM. Appears to be no joint swelling. TTP. 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 DDx RA flare in setting of stopping DMARD, other infectious source, possible vasculitis. - Patient Problems (1) Seronegative rheumatoid arthritis Comment: -Total body pain, L shoulder, R hip, and feet the worst today, ESR and CRP quite high and no other clear source of infection -On Plaquenil currently -Appreciate rheum consult, send for other inflammatory markers, CK low less concerning for rhabdo -Started on Prednisone 40mg on 06/28, Day 3 of 12 on 06/29; will taper by 10mg q3days; hold on initiation of DMARD at this time -Current pain regimen, ER Morphine TID with breakthru Oxy, Lyrica, Tylenol (2) Anxiety Comment: - Worsened over some months, with depression as well - Increase Lexapro to 20mg while in hospital - On review of meds with patient he does not take lorazepam regulalry, in fact used "years old script" unsanctioned-we discuss d/c given high risk opiate/ benzo use and trialing other anxiolytics - Trial of Hydroxyzine in place of Lorazepam 25mg Q 6 hr PRN (3) Urinary retention Comment: -Assume in setting of pain meds in ER -Will remove and trial voiding tomorrow (4) HTN (hypertension) Comment: -WNL -Continue Aliskiren, metoprolol, diuretics, amlodipine, hydral TID (5) Type 2 diabetes mellitus Comment: -BS elevated yesterday, but better controlled today -Continue Lantus, and Lispro SS, add Lispro standing with meals 8 U while on pred. -Currently on home Metformin (6) Diastolic heart failure Comment: -HFpEF, EF 60% in 2014 with mild relaxation dysfxn -Continue diuretic regimen -BNP ~300s (7) Atrial fibrillation Comment: -Rate controlled -Continue metopolol and warfarin. (8) COPD (chronic obstructive pulmonary disease) Comment: -Stable with no s/s exacerbation; CXR without infiltrate -Continue bronchodilators and inhaled steroids. -O2 dependent on 3L NC at home and inpatient (9) CKD (chronic kidney disease) stage 3, GFR 30-59 ml/min Comment: -At baseline (10) NEAL (obstructive sleep apnea) Comment: -Continue home CPAP use (11) DVT prophylaxis Comment: -Warfarin, INR 2.22 (12) Full code status Status and Disposition: Inpatient. PT eval done; suggesting skilled PT. Continue Prednisone with taper and outpatient Rheum follow up for beginning DMARD.
[2018-06-30] MEDS: Warfarin TAB(*) 7.5 MG PO SCH (18:00)
[2018-06-30] MEDS: Mometasone 220 MCG MDI INH SCH (20:21)
--- NOTE | 2018-06-30 20:25 | PN ---
Subjective - Subjective Date of Service: 06/30/18 - chief complaint : RA flare History: Since yesterday, Mr. Cordon continues to have significant restriction, which he attributes to chronic arthritis. His right hip and left shoulder have been chronically restricted. He does note chronic restriction of the right hip region and it is hard to transfer. The left shoulder is painful as well and is restricted. His left knee is aching but is not swollen Active Problems: Active Problems Anxiety (Acute) F41.9 - Worsened over some months, with depression as well - Increase Lexapro to 20mg while in hospital - On review of meds with patient he does not take lorazepam regulalry, in fact used "years old script" unsanctioned-we discuss d/ c given high risk opiate/benzo use and trialing other anxiolytics - Trial of Hydroxyzine in place of Lorazepam 25mg Q 6 hr PRN Diastolic heart failure (Acute) I50.30 -HFpEF, EF 60% in 2014 with mild relaxation dysfxn -Continue diuretic regimen -BNP ~300s Seronegative rheumatoid arthritis (Acute) M06.00 -Total body pain, L shoulder, R hip, and feet the worst today, ESR and CRP quite high and no other clear source of infection -On Plaquenil currently -CK low less concerning for rhabdo -Started on Prednisone 40mg on 06/28, Day 3 of 12 on 06/29; will taper by 10mg q3days; hold on initiation of DMARD at this time - Current pain regimen, ER Morphine TID with breakthru Oxy, Lyrica, Tylenol Urinary retention (Acute) R33.9 -Assume in setting of pain meds in ER -Will remove and trial voiding tomorrow Current Medications: Current Medications Acetaminophen (Tylenol Tab*) 975 mg PO TID PRN PRN Reason: PAIN Aliskiren (Tekturna Tab*) 150 mg PO QAM [facility] Last Admin: 06/30/18 09:28 Dose: 150 mg Amlodipine Besylate (Norvasc Tab*) 10 mg PO DAILY [facility] Last Admin: 06/30/18 09:19 Dose: 10 mg Aspirin (Aspirin Ec Tab*) 81 mg PO DAILY [facility] Last Admin: 06/30/18 09:21 Dose: 81 mg Dextrose (D50w Syringe 50 Ml*) 12.5 gm IV PUSH .FOR FS < 60 - SS PRN PRN Reason: FS < 60 Escitalopram Oxalate (Lexapro *) 20 mg PO DAILY [facility] Last Admin: 06/30/18 09:24 Dose: 20 mg Fluticasone Propionate (Flonase Nasal Leopold 50mcg*) 2 spray BOTH NARES DAILY [facility] Last Admin: 06/30/18 09:22 Dose: 2 spray Folic Acid (Folvite Tab*) 1 mg PO DAILY [facility] Last Admin: 06/30/18 09:19 Dose: 1 mg Hydralazine HCl (Apresoline Tab*) 50 mg PO TID [facility] Last Admin: 06/30/18 13:10 Dose: 50 mg Hydroxychloroquine Sulfate (Plaquenil Tab*) 200 mg PO BID [facility] Last Admin: 06/30/18 09:20 Dose: 200 mg Hydroxyzine HCl (Atarax Tab*) 25 mg PO Q6H PRN PRN Reason: ANXIETY Insulin Glargine (Lantus(*)) 55 units SUBCUT BEDTIME [facility] Last Admin: 06/29/18 21:36 Dose: 55 units Insulin Human Lispro (Humalog*) 0 units SUBCUT ACHS [facility]; Protocol Last Admin: 06/30/18 18:01 Dose: 15 units Insulin Human Lispro (Humalog*) 10 units SUBCUT ACHS [facility] Last Admin: 06/30/18 17:56 Dose: 10 units Magnesium Oxide (Magox 400 Tab*) 400 mg PO BID [facility] Last Admin: 06/30/18 09:19 Dose: 400 mg Metformin HCl (Glucophage*) 1,000 mg PO BID [facility] Last Admin: 06/30/18 09:20 Dose: 1,000 mg Metolazone (Zaroxolyn Tab*) 2.5 mg PO DAILY [facility] Last Admin: 06/30/18 09:20 Dose: 2.5 mg Metoprolol Tartrate (Lopressor Tab*) 50 mg PO BID [facility] Last Admin: 06/30/18 09:19 Dose: 50 mg Mometasone Furoate (Asmanex 220 Mcg Mdi *) 2 puff INH QPM [facility] Last Admin: 06/29/18 19:47 Dose: 2 puff Morphine Sulfate (Morphine 4 Mg/Ml Vial (1 Ml)) 4 mg IV Q4H PRN PRN Reason: PAIN Last Admin: 06/30/18 17:53 Dose: 4 mg Morphine Sulfate (Ms Contin(*)) 30 mg PO TID PRN PRN Reason: PAIN Last Admin: 06/29/18 03:13 Dose: 30 mg Oxycodone HCl (Roxycodone Tab*) 5 mg PO QID PRN PRN Reason: PAIN Polyethylene Glycol/Electrolytes (Miralax*) 17 gm PO DAILY [facility] Last Admin: 06/30/18 09:24 Dose: 17 gm Prednisone (Deltasone Tab*) 40 mg PO DAILY [facility] Last Admin: 06/30/18 09:20 Dose: 40 mg Pregabalin (Lyrica Cap(*)) 75 mg PO TID PRN PRN Reason: PAIN Last Admin: 06/30/18 09:28 Dose: 75 mg Spironolactone (Aldactone Tab*) 50 mg PO DAILY [facility] Last Admin: 06/30/18 09:19 Dose: 50 mg Torsemide (Torsemide) 40 mg PO BID [facility] Last Admin: 06/30/18 09:19 Dose: 40 mg Warfarin Sodium (Coumadin Tab(*)) 3.75 mg PO DAILY@1700 [facility]; Protocol Last Admin: 06/30/18 18:00 Dose: 3.75 mg - Review of Systems Constitutional Symptoms: Yes: Weakness, Fatigue, No: Weight Gain, Fever, Night Sweats, Unexplained Falls Dermatology: Normal: Yes HEENT: Yes Normal Eyes: Positive: Normal Pulmonary: Positive: Normal Cardiology: Positive: Normal, Swelling of Ankles, Peripheral Vascular Dis Gastroenterology: Positive: Normal Musculoskeletal: Positive: Joint Pain, Joint Stiffness, Arthritis, Joint Deformities Endocrinology: Positive: Diabetes Mellitus Psychiatry: Positive: Depressed Mood Allergic/Immunologic: Positive: Immunocompromise Home Medications: Home Medications Medication Instructions Recorded Confirmed Type Aliskiren TAB* [Tekturna TAB*] 150 mg PO QAM 01/21/12 06/28/18 History Fluticasone NASAL * [Flonase *] 2 spray BOTH NARES DAILY 01/21/12 06/28/18 History Folic Acid TAB* [Folvite TAB*] 1 mg PO DAILY 01/21/12 06/28/18 History Methotrexate TAB* 15 mg PO WEEKLY 01/21/12 06/28/18 History Metolazone TAB* [Zaroxolyn TAB*] 2.5 mg PO DAILY 01/21/12 06/28/18 History Metoprolol Tartrate TAB* 50 mg PO BID 01/21/12 06/28/18 History [Lopressor TAB*] metFORMIN* [Glucophage 500 MG TAB 1,000 mg PO BID 01/21/12 06/28/18 History *] Acetaminophen TAB* [Tylenol TAB*] 1,000 mg PO TID PRN 09/30/14 06/28/18 History Fluticasone HFA 110 mcg(NF) 2 puff INH BID 09/30/14 06/28/18 History [Flovent HFA 110 mcg(NF)] Spironolactone TAB* [Aldactone TAB 50 mg PO DAILY 09/30/14 06/28/18 History 25 MG*] amLODIPine TAB* [Norvasc 5 mg TAB*] 10 mg PO DAILY 09/30/14 06/28/18 History zzInsulin GLARGINE(*) [zzLantus(*)] 50 units SUBCUT BEDTIME 09/30/14 06/28/18 History Hydroxychloroquine TAB* [Plaquenil 200 mg PO BID 05/26/16 06/28/18 History TAB*] LORazepam [Ativan 0.5 MG TAB] 0.5 mg PO Q6HR PRN 05/26/16 06/28/18 History Magnesium Oxide [Magnesium Oxide-] 400 mg PO BID 05/26/16 06/28/18 History Polyethylene Glycol 3350* 17 gm PO DAILY 05/26/16 06/28/18 History [Miralax*] Glimepiride (NF) 4 mg PO BID tab 05/30/16 06/28/18 Rx Torsemide [Demadex 20 MG] 40 mg PO BID 09/08/16 06/28/18 History Albuterol/Ipratropium RESP(NF) 2 puff INH QID 05/23/17 06/28/18 History [Combivent Respimat (NF)] Varenicline Tartrate [Chantix] 1 mg PO DAILY 06/13/17 06/28/18 History Adalimumab [Humira] 40 mg SUBCUT Q14D 11/21/17 06/28/18 History Aspirin [Aspir-Low] 81 mg PO DAILY 11/21/17 06/28/18 History Morphine Sulfate [Ms Contin] 30 mg PO TID PRN 11/21/17 06/28/18 History Oxycodone HCl 5 mg PO QID PRN 11/21/17 06/28/18 History Pregabalin [Lyrica] 75 mg PO TID PRN 11/21/17 06/28/18 History Escitalopram * [Lexapro 10 mg (NF)] 10 mg PO DAILY 06/28/18 06/28/18 History Hydralazine HCl 50 mg PO TID 06/28/18 06/28/18 History Warfarin TAB(*) [Coumadin TAB(*)] 7.5 mg PO SEE INSTRUCTIONS 06/28/18 06/28/18 History Allergies: Allergies Allergy/AdvReac Type Severity Reaction Status Date / Time tiotropium Allergy lightheaded Verified 04/25/18 15:46 [From Spiriva with ness HandiHaler] Objective - Vital Signs Vital Signs: Vital Signs 06/29/18 06/30/18 06/30/18 23:19 03:04 05:08 Temperature 98.8 F 97.7 F Pulse Rate 76 65 Respiratory 14 16 18 Rate Blood Pressure 143/70 165/68 (mmHg) O2 Sat by Pulse 97 100 Oximetry 06/30/18 06/30/18 06/30/18 06:10 07:44 08:00 Temperature Pulse Rate 75 Respiratory 16 19 14 Rate Blood Pressure 145/61 (mmHg) O2 Sat by Pulse 100 Oximetry 06/30/18 06/30/18 06/30/18 09:10 09:28 10:10 Temperature Pulse Rate Respiratory 18 14 12 Rate Blood Pressure (mmHg) O2 Sat by Pulse Oximetry 06/30/18 06/30/18 06/30/18 11:24 11:28 15:37 Temperature 98.2 F 98.1 F Pulse Rate 80 86 Respiratory 16 12 16 Rate Blood Pressure 136/57 145/68 (mmHg) O2 Sat by Pulse 100 99 Oximetry 06/30/18 06/30/18 17:53 18:53 Temperature Pulse Rate Respiratory 14 12 Rate Blood Pressure (mmHg) O2 Sat by Pulse Oximetry - Intake and Output Intake and Output: Intake & Output 06/28/18 06/29/18 06/30/18 07/01/18 06:59 06:59 06:59 06:59 Intake Total 0 1740 1620 Output Total 0566 9331 3359 Balance -3200 -5710 -805 Weight 336 lb 8 oz Intake: IV Fluids 0 IVF 0 Oral 0 1740 1620 Output: Urine 25 Andre 3200 1782 0942 Other: Estimated Void Large Large # Bowel Movements 0 0 Estimated Stool Amount Medium # Voids 2 ADLs: Meal Record Start: 06/29/18 01: 40 Freq: DAILY@0900,1400,1800 Status: Active Protocol: Created 06/29/18 01:40 System (Rec: 06/29/18 01:40 System [id number]) Document 06/29/18 09:00 [id number] (Rec: 06/29/18 13:15 [id number] MED-C09) Document 06/30/18 09:00 [id number] (Rec: 06/30/18 13:41 [id number] MED-C09) Document 06/30/18 14:00 [id number] (Rec: 06/30/18 16:12 [id number] MED-C09) Document 06/30/18 18:00 [id number] (Rec: 06/30/18 18:08 [id number] MED-C05) Intake and Output Start: 06/28/18 20: 05 Freq: Status: Active Protocol: Created 06/28/18 20:05 System (Rec: 06/28/18 20:05 System ED-C25) Intake and Output Start: 06/29/18 01: 40 Freq: DAILY@0600,1400,2200 Status: Active Protocol: Created 06/29/18 01:40 System (Rec: 06/29/18 01:40 System [id number]) Document 06/29/18 05:47 [id number] (Rec: 06/29/18 05:49 [id number] MED-C16) Document 06/29/18 14:00 [id number] (Rec: 06/29/18 14:25 [id number] MED-C09) Document 06/29/18 21:32 [id number] (Rec: 06/29/18 21:34 [id number] MED-C02) Document 06/30/18 05:33 [id number] (Rec: 06/30/18 05:35 [id number] MED-C02) Document 06/30/18 14:00 [id number] (Rec: 06/30/18 16:12 [id number] MED-C09) - Physical Exam General Physical Exam Comment: No acute distress; lying supine Eye Exam: bilateral: PERRLA Thyroid Function: Clinically Euthyroid Endocrine: Yes Central Obesity Lungs and Chest: Yes: Chest Expansion Full, Chest Expansion Symetrica, Percussion Note Resonant Heart Rate and Rhythm: Regular JVP: Not Elevated [place] Beat: Non Displaced Additional Cardiovascular: Yes: [place] Beat not Displaced Abdominal Exam: Yes: Soft - Rheumotological System Joints: Joint Deformities - There is right hip restriction and left shoulder restriction and tenderness in the right hip and left knee and left shoulder but there is no synovitis or warmth of the joints - Extremities Feet Appearace: Calluses Feet Sensation: Abnormal: Sensory - Neuro Psychiatric: Normal Speech: Normal Results - Results Lab Results: Laboratory Results - last 24 hr 06/29/18 06/29/18 06/29/18 20:32 20:41 22:46 WBC RBC Hgb Hct MCV MCH MCHC RDW Plt Count MPV Neut % (Auto) Lymph % (Auto) Richardson % (Auto) Eos % (Auto) Baso % (Auto) Absolute Neuts (auto) Absolute Lymphs (auto) Absolute Monos (auto) Absolute Eos (auto) Absolute Basos (auto) Absolute Nucleated RBC Nucleated RBC % Sodium Potassium Chloride Carbon Dioxide Anion Gap BUN Creatinine Est GFR ( Amer) Est GFR (Non-Af Amer) BUN/Creatinine Ratio Glucose POC Glucose (mg/dL) 430 H* 401 H* Glucose Meter Confirm 416 H Calcium 06/29/18 06/30/18 06/30/18 23:51 07:36 07:36 WBC 13.0 H RBC 3.60 L Hgb 11.4 L Hct 35 L MCV 96 H MCH 32 H MCHC 33 RDW 14 Plt Count 183 MPV 9.4 Neut % (Auto) 83.1 Lymph % (Auto) 6.4 Richardson % (Auto) 10.0 Eos % (Auto) 0.4 Baso % (Auto) 0.1 Absolute Neuts (auto) 10.8 H Absolute Lymphs (auto) 0.8 L Absolute Monos (auto) 1.3 H Absolute Eos (auto) 0.1 Absolute Basos (auto) 0 Absolute Nucleated RBC 0 Nucleated RBC % 0 Sodium 140 Potassium 3.7 Chloride 97 L Carbon Dioxide 35 H Anion Gap 8 BUN 42 H Creatinine 1.14 Est GFR ( Amer) 80.1 Est GFR (Non-Af Amer) 66.2 BUN/Creatinine Ratio 36.8 H Glucose 229 H POC Glucose (mg/dL) 365 H Glucose Meter Confirm Calcium 9.9 06/30/18 06/30/18 06/30/18 07:45 13:03 16:48 WBC RBC Hgb Hct MCV MCH MCHC RDW Plt Count MPV Neut % (Auto) Lymph % (Auto) Richardson % (Auto) Eos % (Auto) Baso % (Auto) Absolute Neuts (auto) Absolute Lymphs (auto) Absolute Monos (auto) Absolute Eos (auto) Absolute Basos (auto) Absolute Nucleated RBC Nucleated RBC % Sodium Potassium Chloride Carbon Dioxide Anion Gap BUN Creatinine Est GFR ( Amer) Est GFR (Non-Af Amer) BUN/Creatinine Ratio Glucose POC Glucose (mg/dL) 142 H 241 H 379 H Glucose Meter Confirm Calcium Assessment - Problem List Assessment: Patient Problems Anxiety (Acute) Diastolic heart failure (Acute) Seronegative rheumatoid arthritis (Acute) Urinary retention (Acute) Abdominal pain with vomiting (Acute) CKD (chronic kidney disease) stage 3, GFR 30-59 ml/min (Acute) Chest pain (Acute) DVT prophylaxis (Acute) Full code status (Acute) Left shoulder pain (Acute) Atrial fibrillation (Chronic) COPD (chronic obstructive pulmonary disease) (Chronic) Dilated cardiomyopathy (Chronic) HTN (hypertension) (Chronic) Morbid obesity (Chronic) NEAL (obstructive sleep apnea) (Chronic) Type 2 diabetes mellitus (Chronic) Plan: Polyarticular flare of rheumatoid arthritis. On a steroid taper. Continue PT/ rehab. It is possible that if pain persists some local cortisone injections may help. Would taper Prednisone by 10mg every 3 days. Right hip pain: consider xray. Continue PT. Follow up on serologies. Renal insufficiency: would follow. Avoid NSAIDs RA: Consider trial of Orencia, generally this should be started as an out patient. Coordination of Care: Yes - Discussed with hospitalist
[2018-06-30] MEDS: Acetaminophen TAB* 325 MG PO PRN (21:42)
[2018-06-30] MEDS: Insulin GLARGINE(*) 1 UNITS UNIT SUBCUT SCH (21:54)
[2018-07-01] MEDS: Insulin LISPRO* 1 UNITS UNIT SUBCUT SCH ×8 (09:08→20:41)
[2018-07-01] MEDS: Morphine TAB Extended Release (*) 30 MG TAB.ER PO PRN (09:10)
[2018-07-01] MEDS: Escitalopram * 20 MG TABLET PO SCH (09:12)
[2018-07-01] MEDS: Hydroxychloroquine TAB* 200 MG PO SCH ×2 (09:13→20:38)
[2018-07-01] MEDS: hydrALAZINE TAB* 25 MG PO SCH ×3 (09:16→20:36)
[2018-07-01] MEDS: Metolazone TAB* 5 MG PO SCH (09:17)
[2018-07-01] MEDS: Torsemide TAB 10 MG PO SCH ×2 (09:18→20:37)
[2018-07-01] MEDS: Spironolactone TAB* 25 MG PO SCH (09:19)
[2018-07-01] MEDS: Aliskiren TAB* 150 MG PO SCH (09:19)
[2018-07-01] MEDS: metFORMIN* 500 MG TAB PO SCH ×2 (09:20→20:37)
[2018-07-01] MEDS: Folic Acid TAB* 1 MG PO SCH (09:20)
[2018-07-01] MEDS: Metoprolol Tartrate TAB* 50 mg PO SCH ×2 (09:20→20:38)
[2018-07-01] MEDS: Magnesium Oxide TAB* 400 MG PO SCH ×2 (09:22→20:37)
[2018-07-01] MEDS: predniSONE TAB* 20 MG PO SCH (09:22)
[2018-07-01] MEDS: Aspirin EC TAB* 81 MG TAB.EC PO SCH (09:22)
[2018-07-01] MEDS: amLODIPine TAB* 5 MG PO SCH (09:23)
[2018-07-01] MEDS: Polyethylene Glycol 3350* 17 GM PACKET PO SCH (09:24)
[2018-07-01] MEDS: Fluticasone NASAL SPRAY 50MCG* 16 gm SPRAY BTL BOTH NARES SCH (09:26)
[2018-07-01] MEDS: oxyCODONE TAB* 5 MG TAB PO PRN (12:57)
[2018-07-01 13:05] LABS: Cytomegalovirus IgG Antibody Negative (Negative)
--- NOTE | 2018-07-01 15:34 | PN ---
Subjective Date of Service: 07/01/18 Interval History: Pt states that he is feeling better today. He continues to have most pain in L shoulder, R hip, and b/l feet, but all are feeling much better today. He states he is eating and drinking. He had a BM this morning. Andre is still in place, but pt will trial removal and void today. Pt states that he has finally gotten some sleep, stating he hasn't been able to sleep in days. He refused PT today, due to needing sleep, he states. He is able to sit up today during our conversation. He denies CP, SOB, abd pain, n/v/d/c, pain in calves. Objective Active Medications: Acetaminophen (Tylenol Tab*) 975 mg PO TID PRN Aliskiren (Tekturna Tab*) 150 mg PO QAM PANDA Amlodipine Besylate (Norvasc Tab*) 10 mg PO DAILY PANDA Aspirin (Aspirin Ec Tab*) 81 mg PO DAILY PANDA Dextrose (D50w Syringe 50 Ml*) 12.5 gm IV PUSH .FOR FS < 60 - SS PRN Escitalopram Oxalate (Lexapro *) 20 mg PO DAILY PANDA Fluticasone Propionate (Flonase Nasal [place] 50mcg*) 2 spray BOTH NARES DAILY PANDA Folic Acid (Folvite Tab*) 1 mg PO DAILY PANDA Hydralazine HCl (Apresoline Tab*) 50 mg PO TID PANDA Hydroxychloroquine Sulfate (Plaquenil Tab*) 200 mg PO BID PANDA Hydroxyzine HCl (Atarax Tab*) 25 mg PO Q6H PRN Insulin Glargine (Lantus(*)) 55 units SUBCUT BEDTIME PANDA Insulin Human Lispro (Humalog*) 0 units SUBCUT ACHS [facility]; Protocol Insulin Human Lispro (Humalog*) 10 units SUBCUT ACHS [facility] Magnesium Oxide (Magox 400 Tab*) 400 mg PO BID PANDA Metformin HCl (Glucophage*) 1,000 mg PO BID PANDA Metolazone (Zaroxolyn Tab*) 2.5 mg PO DAILY PANDA Metoprolol Tartrate (Lopressor Tab*) 50 mg PO BID PANDA Mometasone Furoate (Asmanex 220 Mcg Mdi *) 2 puff INH QPM PANDA Morphine Sulfate (Morphine 4 Mg/Ml Vial (1 Ml)) 4 mg IV Q4H PRN Morphine Sulfate (Ms Contin(*)) 30 mg PO TID PRN Oxycodone HCl (Roxycodone Tab*) 5 mg PO QID PRN Polyethylene Glycol/Electrolytes (Miralax*) 17 gm PO DAILY PANDA Prednisone (Deltasone Tab*) 40 mg PO DAILY PANDA Pregabalin (Lyrica Cap(*)) 75 mg PO TID PRN Spironolactone (Aldactone Tab*) 50 mg PO DAILY PANDA Torsemide (Torsemide) 40 mg PO BID PANDA Warfarin Sodium (Coumadin Tab(*)) 3.75 mg PO DAILY@1700 [facility]; Protocol Vital Signs: Temp Pulse Resp BP Pulse Ox 97.6 F 118 16 120/63 98 07/01/18 15:20 07/01/18 15:20 07/01/18 15:27 07/01/18 15:20 07/01/18 15:20 Oxygen Devices in Use Now: None Appearance: Pt is laying in bed with LE elevated. He sits up in bed for exam. He is no longer tearful and is in no acute distress. Eyes: No Scleral Icterus, PERRLA Ears/Nose/Mouth/Throat: NL Teeth, Lips, Gums, Clear Oropharnyx, Mucous Membranes Moist Neck: NL Appearance and Movements; NL JVP, Trachea Midline Respiratory: Symmetrical Chest Expansion and Respiratory Effort, Clear to Auscultation Cardiovascular: NL Sounds; No Murmurs; No JVD, RRR, No Edema Abdominal: NL Sounds; No Tenderness; No Distention, No Hepatosplenomegaly Extremities: No Clubbing, Cyanosis, - - Trace b/l LE edema Skin: No Rash or Ulcers Neurological: Alert and Oriented x 3, - - Moves all extremities. No joint swelling noted. Result Diagrams: 06/30/18 07:36 06/30/18 07:36 Microbiology and Other Data: Microbiology 06/28/18 22:06 Urine Culture - Final Urine No Growth (<1,000 CFU/mL) Assess/Plan/Problems-Billing Assessment: 57 yo M PMH seroneg RA previously on biologic/MTX (stopped 2/2 to LTFU), chronic pain on longterm opiate pain medication, atrial fibrillation on AC, HfpEF (last EF 2014 60%, with mild diastolic dysfxn) IDDM, CKD 3, NEAL on CPAP, COPD and chronic resp failure on 3L NC baseline, HTN, anxiety and depression, who presented with diffuse pain and elevated inflammatory markers. DDx RA flare in setting of stopping DMARD, other infectious source, possible vasculitis. - Patient Problems (1) Seronegative rheumatoid arthritis Comment: -Total body pain, L shoulder, R hip, and feet the worst today, ESR and CRP quite high and no other clear source of infection -On Plaquenil currently -CK low less concerning for rhabdo -Started on Prednisone 40mg on 06/29, Day 3 of 12 on 07/01; will taper by 10mg q3days; hold on initiation of DMARD at this time -Current pain regimen, ER Morphine TID with breakthru Oxy, Lyrica, Tylenol (2) Urinary retention Comment: -Assume in setting of pain meds in ER -Will remove and trial voiding today (3) Anxiety Comment: - Worsened over some months, with depression as well - Increase Lexapro to 20mg while in hospital - On review of meds with patient he does not take lorazepam regulalry, in fact used "years old script" unsanctioned-we discuss d/c given high risk opiate/ benzo use and trialing other anxiolytics - Trial of Hydroxyzine in place of Lorazepam 25mg Q 6 hr PRN (4) HTN (hypertension) Comment: -WNL -Continue Aliskiren, metoprolol, diuretics, amlodipine, hydral TID (5) Type 2 diabetes mellitus Comment: -Continue Lantus, and Lispro SS, add Lispro standing with meals 8 U while on pred. -Currently on home Metformin -Lantus increased by 5 U due to elevated BS, likely d/t prednisone (6) Diastolic heart failure Comment: -HFpEF, EF 60% in 2015 with mild relaxation dysfxn -Continue diuretic regimen -BNP ~300s (7) Atrial fibrillation Comment: -Rate controlled -Continue metopolol and warfarin. (8) COPD (chronic obstructive pulmonary disease) Comment: -Stable with no s/s exacerbation; CXR without infiltrate -Continue bronchodilators and inhaled steroids. -O2 dependent on 3L NC at home and inpatient (9) CKD (chronic kidney disease) stage 3, GFR 30-59 ml/min Comment: -At baseline (10) NEAL (obstructive sleep apnea) Comment: -Continue home CPAP use (11) DVT prophylaxis Comment: -Warfarin, INR 2.22 (12) Full code status Status and Disposition: Inpatient. PT eval done; suggesting skilled PT. Continue Prednisone with taper and outpatient Rheum follow up for beginning DMARD.
[2018-07-01] MEDS: Warfarin TAB(*) 7.5 MG PO SCH (18:04)
--- NOTE | 2018-07-01 20:06 | PN ---
Subjective - Subjective Date of Service: 07/01/18 - chief complaint: RA flare History: Overall he is feeling better; there is some chronic pain in the left shoulder and hip region bilaterally but he is mobilizing better Active Problems: Active Problems Anxiety (Acute) F41.9 - Worsened over some months, with depression as well - Increase Lexapro to 20mg while in hospital - On review of meds with patient he does not take lorazepam regulalry, in fact used "years old script" unsanctioned-we discuss d/ c given high risk opiate/benzo use and trialing other anxiolytics - Trial of Hydroxyzine in place of Lorazepam 25mg Q 6 hr PRN Diastolic heart failure (Acute) I50.30 -HFpEF, EF 60% in 2014 with mild relaxation dysfxn -Continue diuretic regimen -BNP ~300s Seronegative rheumatoid arthritis (Acute) M06.00 Overall seems improved today -On Plaquenil currently -CK low less concerning for rhabdo -We will hold on initiation of DMARD at this time -Current pain regimen Urinary retention (Acute) R33.9 -Assume in setting of pain meds in ER -Will remove and trial voiding today Current Medications: Current Medications Acetaminophen (Tylenol Tab*) 975 mg PO TID PRN PRN Reason: PAIN Last Admin: 06/30/18 21:42 Dose: 975 mg Aliskiren (Tekturna Tab*) 150 mg PO QAM [facility] Last Admin: 07/01/18 09:19 Dose: 150 mg Amlodipine Besylate (Norvasc Tab*) 10 mg PO DAILY [facility] Last Admin: 07/01/18 09:23 Dose: 10 mg Aspirin (Aspirin Ec Tab*) 81 mg PO DAILY [facility] Last Admin: 07/01/18 09:22 Dose: 81 mg Dextrose (D50w Syringe 50 Ml*) 12.5 gm IV PUSH .FOR FS < 60 - SS PRN PRN Reason: FS < 60 Escitalopram Oxalate (Lexapro *) 20 mg PO DAILY [facility] Last Admin: 07/01/18 09:12 Dose: 20 mg Fluticasone Propionate (Flonase Nasal [place] 50mcg*) 2 spray BOTH NARES DAILY [facility] Last Admin: 07/01/18 09:26 Dose: 2 spray Folic Acid (Folvite Tab*) 1 mg PO DAILY [facility] Last Admin: 07/01/18 09:20 Dose: 1 mg Hydralazine HCl (Apresoline Tab*) 50 mg PO TID [facility] Last Admin: 07/01/18 12:55 Dose: 50 mg Hydroxychloroquine Sulfate (Plaquenil Tab*) 200 mg PO BID [facility] Last Admin: 07/01/18 09:13 Dose: 200 mg Hydroxyzine HCl (Atarax Tab*) 25 mg PO Q6H PRN PRN Reason: ANXIETY Insulin Glargine (Lantus(*)) 60 units SUBCUT BEDTIME [facility] Insulin Human Lispro (Humalog*) 0 units SUBCUT ACHS [facility]; Protocol Last Admin: 07/01/18 18:04 Dose: 12 units Insulin Human Lispro (Humalog*) 10 units SUBCUT ACHS [facility] Last Admin: 07/01/18 18:03 Dose: 10 units Magnesium Oxide (Magox 400 Tab*) 400 mg PO BID [facility] Last Admin: 07/01/18 09:22 Dose: 400 mg Metformin HCl (Glucophage*) 1,000 mg PO BID [facility] Last Admin: 07/01/18 09:20 Dose: 1,000 mg Metolazone (Zaroxolyn Tab*) 2.5 mg PO DAILY [facility] Last Admin: 07/01/18 09:17 Dose: 2.5 mg Metoprolol Tartrate (Lopressor Tab*) 50 mg PO BID [facility] Last Admin: 07/01/18 09:20 Dose: 50 mg Mometasone Furoate (Asmanex 220 Mcg Mdi *) 2 puff INH QPM [facility] Last Admin: 06/30/18 20:21 Dose: 2 puff Morphine Sulfate (Morphine 4 Mg/Ml Vial (1 Ml)) 4 mg IV Q4H PRN PRN Reason: PAIN Last Admin: 06/30/18 17:53 Dose: 4 mg Morphine Sulfate (Ms Contin(*)) 30 mg PO TID PRN PRN Reason: PAIN Last Admin: 07/01/18 09:10 Dose: 30 mg Oxycodone HCl (Roxycodone Tab*) 5 mg PO QID PRN PRN Reason: PAIN Last Admin: 07/01/18 12:57 Dose: 5 mg Polyethylene Glycol/Electrolytes (Miralax*) 17 gm PO DAILY [facility] Last Admin: 07/01/18 09:24 Dose: 17 gm Prednisone (Deltasone Tab*) 30 mg PO DAILY [facility] Pregabalin (Lyrica Cap(*)) 75 mg PO TID PRN PRN Reason: PAIN Last Admin: 06/30/18 09:28 Dose: 75 mg Spironolactone (Aldactone Tab*) 50 mg PO DAILY [facility] Last Admin: 07/01/18 09:19 Dose: 50 mg Torsemide (Torsemide) 40 mg PO BID [facility] Last Admin: 07/01/18 09:18 Dose: 40 mg Warfarin Sodium (Coumadin Tab(*)) 3.75 mg PO DAILY@1700 [facility]; Protocol Last Admin: 07/01/18 18:04 Dose: 3.75 mg - Review of Systems Constitutional Symptoms: Yes: Fatigue, No: Weight Gain, Weight Loss, Fever Dermatology: Normal: Yes HEENT: Yes Normal Eyes: Positive: Normal Thyroid: Positive: Normal Pulmonary: Positive: Normal Cardiology: Positive: Normal, Swelling of Ankles, Peripheral Vascular Dis Gastroenterology: Positive: Normal Musculoskeletal: Positive: Joint Pain, Joint Stiffness, Arthritis Endocrinology: Positive: Obesity, Diabetes Mellitus Neurology: Positive: Change in Coordination Psychiatry: Positive: Normal Allergic/Immunologic: Positive: Immunocompromise Home Medications: Home Medications Medication Instructions Recorded Confirmed Type Aliskiren TAB* [Tekturna TAB*] 150 mg PO QAM 01/21/12 06/28/18 History Fluticasone NASAL * [Flonase *] 2 spray BOTH NARES DAILY 01/21/12 06/28/18 History Folic Acid TAB* [Folvite TAB*] 1 mg PO DAILY 01/21/12 06/28/18 History Methotrexate TAB* 15 mg PO WEEKLY 01/21/12 06/28/18 History Metolazone TAB* [Zaroxolyn TAB*] 2.5 mg PO DAILY 01/21/12 06/28/18 History Metoprolol Tartrate TAB* 50 mg PO BID 01/21/12 06/28/18 History [Lopressor TAB*] metFORMIN* [Glucophage 500 MG TAB 1,000 mg PO BID 01/21/12 06/28/18 History *] Acetaminophen TAB* [Tylenol TAB*] 1,000 mg PO TID PRN 09/30/14 06/28/18 History Fluticasone HFA 110 mcg(NF) 2 puff INH BID 09/30/14 06/28/18 History [Flovent HFA 110 mcg(NF)] Spironolactone TAB* [Aldactone TAB 50 mg PO DAILY 09/30/14 06/28/18 History 25 MG*] amLODIPine TAB* [Norvasc 5 mg TAB*] 10 mg PO DAILY 09/30/14 06/28/18 History zzInsulin GLARGINE(*) [zzLantus(*)] 50 units SUBCUT BEDTIME 09/30/14 06/28/18 History Hydroxychloroquine TAB* [Plaquenil 200 mg PO BID 05/26/16 06/28/18 History TAB*] LORazepam [Ativan 0.5 MG TAB] 0.5 mg PO Q6HR PRN 05/26/16 06/28/18 History Magnesium Oxide [Magnesium Oxide-] 400 mg PO BID 05/26/16 06/28/18 History Polyethylene Glycol 3350* 17 gm PO DAILY 05/26/16 06/28/18 History [Miralax*] Glimepiride (NF) 4 mg PO BID tab 05/30/16 06/28/18 Rx Torsemide [Demadex 20 MG] 40 mg PO BID 09/08/16 06/28/18 History Albuterol/Ipratropium RESP(NF) 2 puff INH QID 05/23/17 06/28/18 History [Combivent Respimat (NF)] Varenicline Tartrate [Chantix] 1 mg PO DAILY 06/13/17 06/28/18 History Adalimumab [Humira] 40 mg SUBCUT Q14D 11/21/17 06/28/18 History Aspirin [Aspir-Low] 81 mg PO DAILY 11/21/17 06/28/18 History Morphine Sulfate [Ms Contin] 30 mg PO TID PRN 11/21/17 06/28/18 History Oxycodone HCl 5 mg PO QID PRN 11/21/17 06/28/18 History Pregabalin [Lyrica] 75 mg PO TID PRN 11/21/17 06/28/18 History Escitalopram * [Lexapro 10 mg (NF)] 10 mg PO DAILY 06/28/18 06/28/18 History Hydralazine HCl 50 mg PO TID 06/28/18 06/28/18 History Warfarin TAB(*) [Coumadin TAB(*)] 7.5 mg PO SEE INSTRUCTIONS 06/28/18 06/28/18 History Allergies: Allergies Allergy/AdvReac Type Severity Reaction Status Date / Time tiotropium Allergy lightheaded Verified 04/25/18 15:46 [From Spiriva with ness HandiHaler] Objective - Vital Signs Vital Signs: Vital Signs 06/30/18 06/30/18 07/01/18 20:34 23:53 00:29 Temperature 98.1 F 98.1 F Pulse Rate 88 56 56 Respiratory 16 16 16 Rate Blood Pressure 165/76 165/76 (mmHg) O2 Sat by Pulse 96 98 98 Oximetry 07/01/18 07/01/18 07/01/18 02:03 04:07 04:24 Temperature 97.3 F 97.3 F Pulse Rate 50 52 Respiratory 18 16 16 Rate Blood Pressure 184/58 184/58 (mmHg) O2 Sat by Pulse 100 100 Oximetry 07/01/18 07/01/18 07/01/18 08:12 09:10 11:22 Temperature 98.3 F 97.8 F Pulse Rate 81 76 Respiratory 20 16 18 Rate Blood Pressure 119/61 120/54 (mmHg) O2 Sat by Pulse 100 100 Oximetry 07/01/18 07/01/18 07/01/18 11:32 11:58 12:57 Temperature Pulse Rate Respiratory 16 18 18 Rate Blood Pressure (mmHg) O2 Sat by Pulse Oximetry 07/01/18 07/01/18 07/01/18 15:20 15:27 19:21 Temperature 97.6 F 98.3 F Pulse Rate 118 83 Respiratory 18 16 18 Rate Blood Pressure 120/63 117/55 (mmHg) O2 Sat by Pulse 98 100 Oximetry - Intake and Output Intake and Output: Intake & Output 06/29/18 06/30/18 07/01/18 07/02/18 06:59 06:59 06:59 06:59 Intake Total 0 1740 1620 1560 Output Total 3200 7451 6011 3850 Balance -0008 -5710 -4405 -4830 Weight 336 lb 8 oz Intake: IV Fluids 0 IVF 0 Oral 0 1740 1620 1560 Output: Urine 25 Andre 3200 7425 6025 3850 Other: Estimated Void Large Large Date of Last Bowel [id number] Movement # Bowel Movements 0 0 0 Estimated Stool Amount Medium # Voids 2 ADLs: Meal Record Start: 06/29/18 01: 40 Freq: DAILY@0900,1400,1800 Status: Active Protocol: Created 06/29/18 01:40 System (Rec: 06/29/18 01:40 System [id number]) Document 06/29/18 09:00 [id number] (Rec: 06/29/18 13:15 [id number] MED-C09) Document 06/30/18 09:00 [id number] (Rec: 06/30/18 13:41 [id number] MED-C09) Document 06/30/18 14:00 [id number] (Rec: 06/30/18 16:12 [id number] MED-C09) Document 06/30/18 18:00 [id number] (Rec: 06/30/18 18:08 [id number] MED-C05) Document 07/01/18 09:00 [id number] (Rec: 07/01/18 09:34 [id number] MED-C11) Document 07/01/18 13:55 [id number] (Rec: 07/01/18 13:56 [id number] MED-C09) Document 07/01/18 18:00 [id number] (Rec: 07/01/18 18:53 [id number] MED-C09) Intake and Output Start: 06/28/18 20: 05 Freq: Status: Active Protocol: Created 06/28/18 20:05 System (Rec: 06/28/18 20:05 System [id number]) Intake and Output Start: 06/29/18 01: 40 Freq: DAILY@0600,1400,2200 Status: Active Protocol: Created 06/29/18 01:40 System (Rec: 06/29/18 01:40 System [id number]) Document 06/29/18 05:47 [id number] (Rec: 06/29/18 05:49 [id number] MED-C16) Document 06/29/18 14:00 [id number] (Rec: 06/29/18 14:25 [id number] MED-C09) Document 06/29/18 21:32 [id number] (Rec: 06/29/18 21:34 [id number] MED-C02) Document 06/30/18 05:33 [id number] (Rec: 06/30/18 05:35 [id number] MED-C02) Document 06/30/18 14:00 [id number] (Rec: 06/30/18 16:12 [id number] MED-C09) Document 06/30/18 22:00 [id number] (Rec: 06/30/18 22:16 [id number] MED-C04) Document 07/01/18 05:23 [id number] (Rec: 07/01/18 05:24 [id number] MED-C13) Document 07/01/18 14:00 [id number] (Rec: 07/01/18 14:10 [id number] MED-C09) - Physical Exam General Physical Exam Comment: No acute distress, able to sit up with assistance Eye Exam: right: EOMI Thyroid Function: Clinically Euthyroid Endocrine: Yes Central Obesity Lungs and Chest: Yes: Chest Expansion Full, Chest Expansion Symetrica, Percussion Note Resonant Heart Rate and Rhythm: Regular JVP: Not Elevated [place] Beat: Non Displaced Additional Cardiovascular: Yes: [place] Beat not Displaced, Normal Heart Sounds Abdominal Exam: Yes: Soft - Rheumotological System Joints: Range of Motion - Improved ROM of hips and left shoulder and left knee; no synovitis or warmth is present in his joints, Joint Deformities - Extremities Feet Sensation: Abnormal: Sensory Results - Results Lab Results: Laboratory Results - last 24 hr 06/29/18 06/30/18 07/01/18 11:42 21:41 07:41 POC Glucose (mg/dL) 281 H 176 H Proteinase 3 (PR3) < 0.2 Myeloperoxidase Ab < 0.2 CMV IgG Ab Negative CMV IgM Ab Negative 07/01/18 07/01/18 12:25 17:03 POC Glucose (mg/dL) 238 H 313 H Proteinase 3 (PR3) Myeloperoxidase Ab CMV IgG Ab CMV IgM Ab Assessment - Problem List Assessment: Patient Problems Anxiety (Acute) Diastolic heart failure (Acute) Seronegative rheumatoid arthritis (Acute) Urinary retention (Acute) Abdominal pain with vomiting (Acute) CKD (chronic kidney disease) stage 3, GFR 30-59 ml/min (Acute) Chest pain (Acute) DVT prophylaxis (Acute) Full code status (Acute) Left shoulder pain (Acute) Atrial fibrillation (Chronic) COPD (chronic obstructive pulmonary disease) (Chronic) Dilated cardiomyopathy (Chronic) HTN (hypertension) (Chronic) Morbid obesity (Chronic) NEAL (obstructive sleep apnea) (Chronic) Type 2 diabetes mellitus (Chronic) Plan: RA with seronegative flare; he has elevated inflammatory markers. I will hold off on steroid joint injections as he does seem to be doing better but they could be considered. He is a little nervous about getting further needle sticks but is somewhat open to this. Discussed with patient and family Vasculitis serologies are negative. In terms of RA, I am expecting to switch his biologic to a Non TNF inhibitor as an out patient. Continue steroid taper. Agree with the need for rehab but he will also need close out patient follow up
[2018-07-01] MEDS ORDERED: Insulin GLARGINE(*) 1 UNITS UNIT SUBCUT SCH (21:00)
[2018-07-01] MEDS: Mometasone 220 MCG MDI INH SCH (21:02)
[2018-07-02] MEDS: Morphine 4 MG/ML VIAL (1 ml) 4 MG/ML VIAL IV PRN ×3 (04:16→20:23)
[2018-07-02 06:26] LABS: ABS Basophils 0 10^3/ul (0-0.2); ABS Eosinophils 0.3 10^3/ul (0-0.6); ABS Lymphocytes 1.4 10^3/ul (1.0-4.8); ABS Monocytes 0.9 10^3/ul (0-0.8); ABS Neutrophils 6.2 10^3/ul (1.5-7.7); ABS Nucleated RBC 0 10^3/ul; Eosinophil % 3.3 %; Hematocrit 37 % (36-46); Hemoglobin 12.5 g/dL (14.0-18.0); Mean Corpuscular HGB Conc 34 g/dL (31-36); Mean Corpuscular Hemoglobin 32 pg (27-31); Mean Corpuscular Volume 94 fL (80-94); Mean Platelet Volume 8.5 fL (7.4-10.4); Nucleated Red Blood Cells % 0; Platelet Count 216 10^3/uL (150-450); Red Blood Count 3.91 10^6 /uL (4.18-5.48); Red Cell Distribution Width 14 % (10.5-15); White Blood Count 8.9 10^3/uL (3.5-10.8)
[2018-07-02 06:43] LABS: BUN/Creatinine Ratio 39.4 (8-20); Calcium 10.1 mg/dL (8.6-10.3); EGFR African American 67.6 (>60); EGFR Non-African American 55.9 (>60); Potassium 3.4 mmol/L (3.5-5.0)
[2018-07-02] MEDS: Insulin LISPRO* 1 UNITS UNIT SUBCUT SCH ×8 (09:14→20:31)
[2018-07-02] MEDS: Metolazone TAB* 5 MG PO SCH (09:16)
[2018-07-02] MEDS: amLODIPine TAB* 5 MG PO SCH (09:18)
[2018-07-02] MEDS: Torsemide TAB 10 MG PO SCH ×2 (09:19→20:30)
[2018-07-02] MEDS: Magnesium Oxide TAB* 400 MG PO SCH ×2 (09:20→20:29)
[2018-07-02] MEDS: Potassium Chlor TAB* 20 MEQ TAB.ER PO SCH ×2 (09:20→13:07)
[2018-07-02] MEDS: hydrALAZINE TAB* 25 MG PO SCH ×3 (09:20→20:30)
[2018-07-02] MEDS: Hydroxychloroquine TAB* 200 MG PO SCH ×2 (09:21→20:30)
[2018-07-02] MEDS: Folic Acid TAB* 1 MG PO SCH (09:21)
[2018-07-02] MEDS: Escitalopram * 20 MG TABLET PO SCH (09:21)
[2018-07-02] MEDS: metFORMIN* 500 MG TAB PO SCH ×2 (09:21→20:29)
[2018-07-02] MEDS: predniSONE TAB* 20 MG PO SCH (09:22)
[2018-07-02] MEDS: Metoprolol Tartrate TAB* 50 mg PO SCH ×2 (09:22→20:29)
[2018-07-02] MEDS: Aspirin EC TAB* 81 MG TAB.EC PO SCH (09:22)
[2018-07-02] MEDS: Spironolactone TAB* 25 MG PO SCH (09:23)
[2018-07-02] MEDS: Aliskiren TAB* 150 MG PO SCH (09:24)
[2018-07-02] MEDS: Polyethylene Glycol 3350* 17 GM PACKET PO SCH (09:27)
[2018-07-02] MEDS: Fluticasone NASAL SPRAY 50MCG* 16 gm SPRAY BTL BOTH NARES SCH (09:27)
[2018-07-02] MEDS: Pregabalin CAP(*) 25 MG PO PRN (10:16)
[2018-07-02 11:46] LABS: C-ANCA Negative (Negative)
--- NOTE | 2018-07-02 15:04 | PN ---
Subjective Date of Service: 07/02/18 Interval History: VS: WNL Labs: Hypokalemia- repleted and will recheck Pt states that he feels better today, and seems to be getting better daily. Major pain areas continue to be L shoulder, R hip, and b/l feet. He again refused PT today in favor of sleeping, but states that he asked them to come back at a different time. Pt is eating, drinking well. He states he is urinating well without jeffers in place. Denies CP, SOB, abd pain, n/v/d/c, pain in calves. Objective Active Medications: Acetaminophen (Tylenol Tab*) 975 mg PO TID PRN Aliskiren (Tekturna Tab*) 150 mg PO QAM PANDA Amlodipine Besylate (Norvasc Tab*) 10 mg PO DAILY [facility] Aspirin (Aspirin Ec Tab*) 81 mg PO DAILY [facility] Dextrose (D50w Syringe 50 Ml*) 12.5 gm IV PUSH .FOR FS < 60 - SS PRN Escitalopram Oxalate (Lexapro *) 20 mg PO DAILY [facility] Fluticasone Propionate (Flonase Nasal [place] 50mcg*) 2 spray BOTH NARES DAILY [facility] Folic Acid (Folvite Tab*) 1 mg PO DAILY [facility] Hydralazine HCl (Apresoline Tab*) 50 mg PO TID PANDA Hydroxychloroquine Sulfate (Plaquenil Tab*) 200 mg PO BID [facility] Hydroxyzine HCl (Atarax Tab*) 25 mg PO Q6H PRN Insulin Glargine (Lantus(*)) 60 units SUBCUT BEDTIME [facility] Insulin Human Lispro (Humalog*) 0 units SUBCUT ACHS [facility]; Protocol Insulin Human Lispro (Humalog*) 10 units SUBCUT ACHS [facility] Magnesium Oxide (Magox 400 Tab*) 400 mg PO BID PANDA Metformin HCl (Glucophage*) 1,000 mg PO BID PANDA Metolazone (Zaroxolyn Tab*) 2.5 mg PO DAILY [facility] Metoprolol Tartrate (Lopressor Tab*) 50 mg PO BID [facility]DA Mometasone Furoate (Asmanex 220 Mcg Mdi *) 2 puff INH QPM [facility] Morphine Sulfate (Morphine 4 Mg/Ml Vial (1 Ml)) 4 mg IV Q4H PRN Morphine Sulfate (Ms Contin(*)) 30 mg PO TID PRN Oxycodone HCl (Roxycodone Tab*) 5 mg PO QID PRN Polyethylene Glycol/Electrolytes (Miralax*) 17 gm PO DAILY [facility] Prednisone (Deltasone Tab*) 30 mg PO DAILY [facility] Pregabalin (Lyrica Cap(*)) 75 mg PO TID PRN Spironolactone (Aldactone Tab*) 50 mg PO DAILY [facility] Torsemide (Torsemide) 40 mg PO BID [facility] Warfarin Sodium (Coumadin Tab(*)) 3.75 mg PO DAILY@1700 [facility]; Protocol Vital Signs: Temp Pulse Resp BP Pulse Ox 98.9 F 71 18 104/50 100 07/02/18 11:10 07/02/18 11:10 07/02/18 13:13 07/02/18 11:10 07/02/18 11:10 Oxygen Devices in Use Now: None, CPAP Appearance: Pt sleeping, but wakes easily. He sits up and moves to edge of bed. He appears slightly uncomfortable and movements are slow, but he is able to complete them. He is in no acute distress. Eyes: No Scleral Icterus, PERRLA Ears/Nose/Mouth/Throat: NL Teeth, Lips, Gums, Clear Oropharnyx, Mucous Membranes Moist Neck: NL Appearance and Movements; NL JVP, Trachea Midline Respiratory: Symmetrical Chest Expansion and Respiratory Effort, Clear to Auscultation Cardiovascular: NL Sounds; No Murmurs; No JVD, RRR, No Edema Abdominal: NL Sounds; No Tenderness; No Distention, No Hepatosplenomegaly Extremities: No Clubbing, Cyanosis, - - Trace b/l LE edema Skin: No Rash or Ulcers, No Nodules or Sclerosis Neurological: Alert and Oriented x 3 Result Diagrams: 07/02/18 06:17 07/02/18 06:17 Microbiology and Other Data: Microbiology 06/28/18 22:06 Urine Culture - Final Urine No Growth (<1,000 CFU/mL) Assess/Plan/Problems-Billing Assessment: 57 yo M PMH seroneg RA previously on biologic/MTX (stopped 2/2 to LTFU), chronic pain on technician terminal and repeater opiate pain medication, atrial fibrillation on AC, HfpEF (last EF 2014 60%, with mild diastolic dysfxn) IDDM, CKD 3, NEAL on CPAP, COPD and chronic resp failure on 3L NC baseline, HTN, anxiety and depression, who presented with diffuse pain and elevated inflammatory markers. DDx RA flare in setting of stopping DMARD, other infectious source, possible vasculitis. - Patient Problems (1) Seronegative rheumatoid arthritis Comment: -Improving daily; awaiting THADDEUS placement -On Plaquenil currently -CK low less concerning for rhabdo -We will hold on initiation of DMARD at this time -Current pain regimen (2) Urinary retention Comment: -Jeffers removed and pt urinating on own -Resolved (3) Anxiety Comment: - Worsened over some months, with depression as well - Increase Lexapro to 20mg while in hospital - On review of meds with patient he does not take lorazepam regulalry, in fact used "years old script" unsanctioned-we discuss d/c given high risk opiate/ benzo use and trialing other anxiolytics - Trial of Hydroxyzine in place of Lorazepam 25mg Q 6 hr PRN (4) HTN (hypertension) Comment: -WNL -Continue Aliskiren, metoprolol, diuretics, amlodipine, hydral TID (5) Type 2 diabetes mellitus Comment: -Continue Lantus, and Lispro SS, add Lispro standing with meals 8 U while on pred. -Currently on home Metformin -Control improving, but still with elevated BS. Lantus increased to 65. (6) Diastolic heart failure Comment: -HFpEF, EF 60% in 2015 with mild relaxation dysfxn -Continue diuretic regimen -BNP ~300s (7) Atrial fibrillation Comment: -Rate controlled -Continue metopolol and warfarin. (8) COPD (chronic obstructive pulmonary disease) Comment: -Stable with no s/s exacerbation; CXR without infiltrate -Continue bronchodilators and inhaled steroids. -O2 dependent on 3L NC at home and inpatient (9) CKD (chronic kidney disease) stage 3, GFR 30-59 ml/min Comment: -At baseline (10) NEAL (obstructive sleep apnea) Comment: -Continue home CPAP use (11) DVT prophylaxis Comment: -Warfarin, INR 2.22 (12) Full code status Status and Disposition: Inpatient. PT eval done; suggesting skilled PT. Continue Prednisone with taper and outpatient Rheum follow up for beginning DMARD.
[2018-07-02] MEDS: Warfarin TAB(*) 7.5 MG PO SCH (17:16)
[2018-07-02] MEDS ORDERED: Triamcinolone Acetonide* 40 MG/ML 1 ML VIAL INTRAARTIC ONE (18:49)
--- NOTE | 2018-07-02 19:19 | PN ---
Subjective - Subjective Date of Service: 07/02/18 - chief complaint: polyarticular joint pain Active Problems: Active Problems Anxiety (Acute) F41.9 - Worsened over some months, with depression as well - Increase Lexapro to 20mg while in hospital - On review of meds with patient he does not take lorazepam regulalry, in fact used "years old script" unsanctioned-we discuss d/ c given high risk opiate/benzo use and trialing other anxiolytics - Trial of Hydroxyzine in place of Lorazepam 25mg Q 6 hr PRN Diastolic heart failure (Acute) I50.30 -HFpEF, EF 60% in 2015 with mild relaxation dysfxn -Continue diuretic regimen -BNP ~300s Seronegative rheumatoid arthritis (Acute) M06.00 -Improving daily; awaiting THADDEUS placement -On Plaquenil currently -CK low less concerning for rhabdo -We will hold on initiation of DMARD at this time - Current pain regimen Urinary retention (Acute) R33.9 -Andre removed and pt urinating on own -Resolved Current Medications: Current Medications Acetaminophen (Tylenol Tab*) 975 mg PO TID PRN PRN Reason: PAIN Last Admin: 06/30/18 21:42 Dose: 975 mg Aliskiren (Tekturna Tab*) 150 mg PO QAM [facility] Last Admin: 07/02/18 09:24 Dose: 150 mg Amlodipine Besylate (Norvasc Tab*) 10 mg PO DAILY [facility] Last Admin: 07/02/18 09:18 Dose: 10 mg Aspirin (Aspirin Ec Tab*) 81 mg PO DAILY [facility] Last Admin: 07/02/18 09:22 Dose: 81 mg Dextrose (D50w Syringe 50 Ml*) 12.5 gm IV PUSH .FOR FS < 60 - SS PRN PRN Reason: FS < 60 Escitalopram Oxalate (Lexapro *) 20 mg PO DAILY [facility] Last Admin: 07/02/18 09:21 Dose: 20 mg Fluticasone Propionate (Flonase Nasal [place] 50mcg*) 2 spray BOTH NARES DAILY [facility] Last Admin: 07/02/18 09:27 Dose: 2 spray Folic Acid (Folvite Tab*) 1 mg PO DAILY [facility] Last Admin: 07/02/18 09:21 Dose: 1 mg Hydralazine HCl (Apresoline Tab*) 50 mg PO TID [facility] Last Admin: 07/02/18 14:03 Dose: 50 mg Hydroxychloroquine Sulfate (Plaquenil Tab*) 200 mg PO BID [facility] Last Admin: 07/02/18 09:21 Dose: 200 mg Hydroxyzine HCl (Atarax Tab*) 25 mg PO Q6H PRN PRN Reason: ANXIETY Insulin Glargine (Lantus(*)) 65 units SUBCUT BEDTIME [facility] Insulin Human Lispro (Humalog*) 0 units SUBCUT ACHS [facility]; Protocol Last Admin: 07/02/18 17:15 Dose: 12 units Insulin Human Lispro (Humalog*) 10 units SUBCUT ACHS [facility] Last Admin: 07/02/18 17:15 Dose: 10 units Magnesium Oxide (Magox 400 Tab*) 400 mg PO BID [facility] Last Admin: 07/02/18 09:20 Dose: 400 mg Metformin HCl (Glucophage*) 1,000 mg PO BID [facility] Last Admin: 07/02/18 09:21 Dose: 1,000 mg Metolazone (Zaroxolyn Tab*) 2.5 mg PO DAILY [facility] Last Admin: 07/02/18 09:16 Dose: 2.5 mg Metoprolol Tartrate (Lopressor Tab*) 50 mg PO BID [facility] Last Admin: 07/02/18 09:22 Dose: 50 mg Mometasone Furoate (Asmanex 220 Mcg Mdi *) 2 puff INH QPM [facility] Last Admin: 07/01/18 21:02 Dose: 2 puff Morphine Sulfate (Morphine 4 Mg/Ml Vial (1 Ml)) 4 mg IV Q4H PRN PRN Reason: PAIN Last Admin: 07/02/18 10:16 Dose: 4 mg Morphine Sulfate (Ms Contin(*)) 30 mg PO TID PRN PRN Reason: PAIN Last Admin: 07/01/18 09:10 Dose: 30 mg Oxycodone HCl (Roxycodone Tab*) 5 mg PO QID PRN PRN Reason: PAIN Last Admin: 07/01/18 12:57 Dose: 5 mg Polyethylene Glycol/Electrolytes (Miralax*) 17 gm PO DAILY [facility] Last Admin: 07/02/18 09:27 Dose: 17 gm Prednisone (Deltasone Tab*) 30 mg PO DAILY [facility] Last Admin: 07/02/18 09:22 Dose: 30 mg Pregabalin (Lyrica Cap(*)) 75 mg PO TID PRN PRN Reason: PAIN Last Admin: 07/02/18 10:16 Dose: 75 mg Spironolactone (Aldactone Tab*) 50 mg PO DAILY [facility] Last Admin: 07/02/18 09:23 Dose: 50 mg Torsemide (Torsemide) 40 mg PO BID [facility] Last Admin: 07/02/18 09:19 Dose: 40 mg Warfarin Sodium (Coumadin Tab(*)) 3.75 mg PO DAILY@1700 PANDA; Protocol Last Admin: 07/02/18 17:16 Dose: 3.75 mg - Review of Systems General Comments: While Mr. Cordon is overall noting an improvement, he is still very restricted in ambulation. In particular his right hip does restrict; on reflection, his hip pain has been getting worse over the last year and in particular it has worsened over the last few months. He was ambivalent about trying rehab, but I did advise him that this would be a good option to help improve his strength and mobility over time. He is amenable to trying local injections to get some relief. He has had no fevers and his white count has been improving; therefore, although his inflammatory markers were high, he likely does not have an infectious source of his symptoms and instead this is reflecting a flare of his rheumatoid arthritis Constitutional Symptoms: Yes: Weakness, No: Weight Gain, Night Sweats, Unexplained Falls Dermatology: Normal: Yes HEENT: Yes Normal Eyes: Positive: Normal Thyroid: Positive: Normal Pulmonary: Positive: Normal Cardiology: Positive: Normal, Swelling of Ankles, Edema Gastroenterology: Positive: Normal Musculoskeletal: Positive: Joint Pain, Joint Stiffness, Joint Deformities Neurology: Positive: Change in Walking Psychiatry: Positive: Normal Allergic/Immunologic: Positive: Immunocompromise Home Medications: Home Medications Medication Instructions Recorded Confirmed Type Aliskiren TAB* [Tekturna TAB*] 150 mg PO QAM 01/21/12 06/28/18 History Fluticasone NASAL * [Flonase *] 2 spray BOTH NARES DAILY 01/21/12 06/28/18 History Folic Acid TAB* [Folvite TAB*] 1 mg PO DAILY 01/21/12 06/28/18 History Methotrexate TAB* 15 mg PO WEEKLY 01/21/12 06/28/18 History Metolazone TAB* [Zaroxolyn TAB*] 2.5 mg PO DAILY 01/21/12 06/28/18 History Metoprolol Tartrate TAB* 50 mg PO BID 01/21/12 06/28/18 History [Lopressor TAB*] metFORMIN* [Glucophage 500 MG TAB 1,000 mg PO BID 01/21/12 06/28/18 History *] Acetaminophen TAB* [Tylenol TAB*] 1,000 mg PO TID PRN 09/30/14 06/28/18 History Fluticasone HFA 110 mcg(NF) 2 puff INH BID 09/30/14 06/28/18 History [Flovent HFA 110 mcg(NF)] Spironolactone TAB* [Aldactone TAB 50 mg PO DAILY 09/30/14 06/28/18 History 25 MG*] amLODIPine TAB* [Norvasc 5 mg TAB*] 10 mg PO DAILY 09/30/14 06/28/18 History zzInsulin GLARGINE(*) [zzLantus(*)] 50 units SUBCUT BEDTIME 09/30/14 06/28/18 History Hydroxychloroquine TAB* [Plaquenil 200 mg PO BID 05/26/16 06/28/18 History TAB*] LORazepam [Ativan 0.5 MG TAB] 0.5 mg PO Q6HR PRN 05/26/16 06/28/18 History Magnesium Oxide [Magnesium Oxide-] 400 mg PO BID 05/26/16 06/28/18 History Polyethylene Glycol 3350* 17 gm PO DAILY 05/26/16 06/28/18 History [Miralax*] Glimepiride (NF) 4 mg PO BID tab 05/30/16 06/28/18 Rx Torsemide [Demadex 20 MG] 40 mg PO BID 09/08/16 06/28/18 History Albuterol/Ipratropium RESP(NF) 2 puff INH QID 05/23/17 06/28/18 History [Combivent Respimat (NF)] Varenicline Tartrate [Chantix] 1 mg PO DAILY 06/13/17 06/28/18 History Adalimumab [Humira] 40 mg SUBCUT Q14D 11/21/17 06/28/18 History Aspirin [Aspir-Low] 81 mg PO DAILY 11/21/17 06/28/18 History Morphine Sulfate [Ms Contin] 30 mg PO TID PRN 11/21/17 06/28/18 History Oxycodone HCl 5 mg PO QID PRN 11/21/17 06/28/18 History Pregabalin [Lyrica] 75 mg PO TID PRN 11/21/17 06/28/18 History Escitalopram * [Lexapro 10 mg (NF)] 10 mg PO DAILY 06/28/18 06/28/18 History Hydralazine HCl 50 mg PO TID 06/28/18 06/28/18 History Warfarin TAB(*) [Coumadin TAB(*)] 7.5 mg PO SEE INSTRUCTIONS 06/28/18 06/28/18 History Allergies: Allergies Allergy/AdvReac Type Severity Reaction Status Date / Time tiotropium Allergy lightheaded Verified 04/25/18 15:46 [From Spiriva with ness HandiHaler] Objective - Vital Signs Vital Signs: Vital Signs 07/01/18 07/01/18 07/01/18 19:21 21:02 23:58 Temperature 98.3 F 98.1 F Pulse Rate 83 83 66 Respiratory 18 18 18 Rate Blood Pressure 117/55 124/58 (mmHg) O2 Sat by Pulse 100 95 97 Oximetry 07/02/18 07/02/18 07/02/18 00:03 00:04 03:39 Temperature 98.2 F Pulse Rate 45 Respiratory 18 18 16 Rate Blood Pressure 132/65 (mmHg) O2 Sat by Pulse 100 Oximetry 07/02/18 07/02/18 07/02/18 04:16 04:31 05:25 Temperature 98.2 F Pulse Rate 72 Respiratory 16 16 16 Rate Blood Pressure 132/65 (mmHg) O2 Sat by Pulse 100 Oximetry 07/02/18 07/02/18 07/02/18 07:51 09:27 10:16 Temperature 97.5 F Pulse Rate 72 Respiratory 18 20 24 Rate Blood Pressure 136/55 (mmHg) O2 Sat by Pulse 93 Oximetry 07/02/18 07/02/18 07/02/18 11:10 11:49 13:13 Temperature 98.9 F Pulse Rate 71 Respiratory 20 18 18 Rate Blood Pressure 104/50 (mmHg) O2 Sat by Pulse 100 Oximetry 07/02/18 15:32 Temperature 98.0 F Pulse Rate 79 Respiratory 20 Rate Blood Pressure 116/53 (mmHg) O2 Sat by Pulse 98 Oximetry - Intake and Output Intake and Output: Intake & Output 06/30/18 07/01/18 07/02/18 07/03/18 06:59 06:59 06:59 06:59 Intake Total 1740 1620 3360 1900 Output Total 7450 6025 7450 900 Balance -5710 -4405 -4090 1000 Intake: IV Fluids 0 IVF 0 Oral 1740 1620 3360 1900 Output: Urine 25 3600 900 Andre 7425 6025 3850 Other: Estimated Void Large Date of Last Bowel [id number] Movement # Bowel Movements 0 1 Estimated Stool Amount Medium Medium Large # Voids 2 ADLs: Meal Record Start: 06/29/18 01: 40 Freq: DAILY@0900,1400,1800 Status: Active Protocol: Created 06/29/18 01:40 System (Rec: 06/29/18 01:40 System [id number]) Document 06/29/18 09:00 [id number] (Rec: 06/29/18 13:15 [id number] MED-C09) Document 06/30/18 09:00 [id number] (Rec: 06/30/18 13:41 [id number] MED-C09) Document 06/30/18 14:00 [id number] (Rec: 06/30/18 16:12 [id number] MED-C09) Document 06/30/18 18:00 [id number] (Rec: 06/30/18 18:08 [id number] MED-C05) Document 07/01/18 09:00 [id number] (Rec: 07/01/18 09:34 [id number] MED-C11) Document 07/01/18 13:55 [id number] (Rec: 07/01/18 13:56 [id number] MED-C09) Document 07/01/18 18:00 [id number] (Rec: 07/01/18 18:53 [id number] MED-C09) Document 07/02/18 09:00 [id number] (Rec: 07/02/18 10:07 [id number] MED-C09) Document 07/02/18 14:00 [id number] (Rec: 07/02/18 16:38 [id number] MED-C11) Document 07/02/18 18:00 [id number] (Rec: 07/02/18 18:45 [id number] MED-C09) Intake and Output Start: 06/28/18 20: 05 Freq: Status: Active Protocol: Created 06/28/18 20:05 System (Rec: 06/28/18 20:05 System ED-C25) Intake and Output Start: 06/29/18 01: 40 Freq: DAILY@0600,1400,2200 Status: Active Protocol: Created 06/29/18 01:40 System (Rec: 06/29/18 01:40 System [id number]) Document 06/29/18 05:47 [id number] (Rec: 06/29/18 05:49 [id number] MED-C16) Document 06/29/18 14:00 [id number] (Rec: 06/29/18 14:25 [id number] MED-C09) Document 06/29/18 21:32 [id number] (Rec: 06/29/18 21:34 [id number] MED-C02) Document 06/30/18 05:33 [id number] (Rec: 06/30/18 05:35 [id number] MED-C02) Document 06/30/18 14:00 [id number] (Rec: 06/30/18 16:12 [id number] MED-C09) Document 06/30/18 22:00 [id number] (Rec: 06/30/18 22:16 [id number] MED-C04) Document 07/01/18 05:23 [id number] (Rec: 07/01/18 05:24 [id number] MED-C13) Document 07/01/18 14:00 [id number] (Rec: 07/01/18 14:10 [id number] MED-C09) Document 07/01/18 22:00 [id number] (Rec: 07/01/18 23:08 [id number] MED-C14) Document 07/02/18 05:37 [id number] (Rec: 07/02/18 05:37 [id number] MED-C14) Document 07/02/18 14:00 [id number] (Rec: 07/02/18 16:38 [id number] MED-C11) - Physical Exam General Physical Exam Comment: No acute distress; able to sit up and ambulate; requires some assistance as gait is antalgic Eye Exam: bilateral: EOMI Head: Yes Normocephalic Thyroid Function: Clinically Euthyroid Endocrine: Yes Central Obesity Lungs and Chest: Yes: Chest Expansion Full, Chest Expansion Symetrica, Percussion Note Resonant Heart Rate and Rhythm: Regular JVP: Not Elevated [place] Beat: Non Displaced Additional Cardiovascular: Yes: [place] Beat not Displaced Abdominal Exam: Yes: Soft - Rheumotological System Joints: Range of Motion - His right hip is restricted and there is mild tenderness of the left shoulder and left knee but no synovitis; his shoulder on the left has reduced tenderness and improved range of motion although the right lateral trochanteric bursal region is tender and he also has significant hip restriction when walking so that his gait is antalgic - Extremities Posterior Tibial Pulse: Bilateral Normal - Neuro Orientation: A/O x3 - There is no synovitis or warmth of his joints. He was able to consent to the procedure Psychiatric: Normal Speech: Normal Results - Results Lab Results: Laboratory Results - last 24 hr 06/29/18 07/01/18 07/02/18 11:42 20:23 06:17 WBC 8.9 RBC 3.91 L Hgb 12.5 L Hct 37 MCV 94 MCH 32 H MCHC 34 RDW 14 Plt Count 216 MPV 8.5 Neut % (Auto) 70.3 Lymph % (Auto) 16.0 Becker % (Auto) 9.9 Eos % (Auto) 3.3 Baso % (Auto) 0.5 Absolute Neuts (auto) 6.2 Absolute Lymphs (auto) 1.4 Absolute Monos (auto) 0.9 H Absolute Eos (auto) 0.3 Absolute Basos (auto) 0 Absolute Nucleated RBC 0 Nucleated RBC % 0 Sodium Potassium Chloride Carbon Dioxide Anion Gap BUN Creatinine Est GFR ( Amer) Est GFR (Non-Af Amer) BUN/Creatinine Ratio Glucose POC Glucose (mg/dL) 313 H Calcium Anti-Nuclear Antibody 0.2 c-ANCA Antibody Negative p-ANCA Antibody Negative 07/02/18 07/02/18 07/02/18 06:17 07:46 12:06 WBC RBC Hgb Hct MCV MCH MCHC RDW Plt Count MPV Neut % (Auto) Lymph % (Auto) Becker % (Auto) Eos % (Auto) Baso % (Auto) Absolute Neuts (auto) Absolute Lymphs (auto) Absolute Monos (auto) Absolute Eos (auto) Absolute Basos (auto) Absolute Nucleated RBC Nucleated RBC % Sodium 138 Potassium 3.4 L Chloride 95 L Carbon Dioxide 33 H Anion Gap 10 BUN 52 H Creatinine 1.32 H Est GFR ( Amer) 67.6 Est GFR (Non-Af Amer) 55.9 BUN/Creatinine Ratio 39.4 H Glucose 168 H POC Glucose (mg/dL) 174 H 222 H Calcium 10.1 Anti-Nuclear Antibody c-ANCA Antibody p-ANCA Antibody 07/02/18 16:36 WBC RBC Hgb Hct MCV MCH MCHC RDW Plt Count MPV Neut % (Auto) Lymph % (Auto) Becker % (Auto) Eos % (Auto) Baso % (Auto) Absolute Neuts (auto) Absolute Lymphs (auto) Absolute Monos (auto) Absolute Eos (auto) Absolute Basos (auto) Absolute Nucleated RBC Nucleated RBC % Sodium Potassium Chloride Carbon Dioxide Anion Gap BUN Creatinine Est GFR ( Amer) Est GFR (Non-Af Amer) BUN/Creatinine Ratio Glucose POC Glucose (mg/dL) 306 H Calcium Anti-Nuclear Antibody c-ANCA Antibody p-ANCA Antibody Assessment - Problem List Assessment: Patient Problems Anxiety (Acute) Diastolic heart failure (Acute) Seronegative rheumatoid arthritis (Acute) Urinary retention (Acute) Abdominal pain with vomiting (Acute) CKD (chronic kidney disease) stage 3, GFR 30-59 ml/min (Acute) Chest pain (Acute) DVT prophylaxis (Acute) Full code status (Acute) Left shoulder pain (Acute) Atrial fibrillation (Chronic) COPD (chronic obstructive pulmonary disease) (Chronic) Dilated cardiomyopathy (Chronic) HTN (hypertension) (Chronic) Morbid obesity (Chronic) NEAL (obstructive sleep apnea) (Chronic) Type 2 diabetes mellitus (Chronic) Plan: RA: still having a flare, although some joints are improved. He would benefit from rehab. Right trochanteric bursitis: I advised an injection for pain relief. He consented after risks and benefits were explained, including bleeding and trauma and infection. The right lateral trochanteric bursal region was identified and palpated; where there was tenderness, betadine swabs times 3 were applied. Approximately 1 cc of Lidocaine 1 Percent and Kenalog 40mg 1.2 cc was injected in the right trochanteric bursal region which he tolerated well. Bandaid applied Shoulder pain: we could consider an injection in this region as well. Given his diabetes would probably inject only one joint or bursae at a time Monitor blood sugar. OA of the hip: very severe, hip replacement seems risky given his cardiac condition. I am thinking that we will start Orencia as an out patient.
[2018-07-02] MEDS: Mometasone 220 MCG MDI INH SCH (19:43)
[2018-07-02] MEDS: Acetaminophen TAB* 325 MG PO PRN (20:23)
[2018-07-02] MEDS: Insulin GLARGINE(*) 1 UNITS UNIT SUBCUT SCH (20:30)
[2018-07-03] MEDS: Insulin LISPRO* 1 UNITS UNIT SUBCUT SCH ×8 (08:48→21:39)
[2018-07-03 08:49] LABS: INR 1.73 (0.77-1.02)
[2018-07-03] MEDS: Fluticasone NASAL SPRAY 50MCG* 16 gm SPRAY BTL BOTH NARES SCH (08:50)
[2018-07-03] MEDS: Polyethylene Glycol 3350* 17 GM PACKET PO SCH (08:50)
[2018-07-03] MEDS: Aliskiren TAB* 150 MG PO SCH (08:51)
[2018-07-03] MEDS: predniSONE TAB* 20 MG PO SCH (08:51)
[2018-07-03] MEDS: Metolazone TAB* 5 MG PO SCH (08:51)
[2018-07-03] MEDS: oxyCODONE TAB* 5 MG TAB PO PRN ×2 (08:52→17:27)
[2018-07-03] MEDS: Spironolactone TAB* 25 MG PO SCH (08:52)
[2018-07-03] MEDS: Escitalopram * 20 MG TABLET PO SCH (08:52)
[2018-07-03] MEDS: Hydroxychloroquine TAB* 200 MG PO SCH ×2 (08:52→21:39)
[2018-07-03] MEDS: metFORMIN* 500 MG TAB PO SCH ×2 (08:52→21:40)
[2018-07-03] MEDS: Folic Acid TAB* 1 MG PO SCH (08:52)
[2018-07-03] MEDS: Morphine TAB Extended Release (*) 30 MG TAB.ER PO PRN ×2 (08:53→17:26)
[2018-07-03] MEDS: Aspirin EC TAB* 81 MG TAB.EC PO SCH (08:53)
[2018-07-03] MEDS: hydrALAZINE TAB* 25 MG PO SCH ×3 (08:53→21:39)
[2018-07-03] MEDS: amLODIPine TAB* 5 MG PO SCH (08:53)
[2018-07-03] MEDS: Pregabalin CAP(*) 25 MG PO PRN ×2 (08:53→17:26)
[2018-07-03 09:02] LABS: EGFR African American 62.2 (>60); EGFR Non-African American 51.4 (>60); Potassium 3.5 mmol/L (3.5-5.0)
[2018-07-03] MEDS: Torsemide TAB 10 MG PO SCH ×2 (09:05→21:40)
[2018-07-03] MEDS: Metoprolol Tartrate TAB* 50 mg PO SCH ×2 (09:05→21:40)
[2018-07-03] MEDS: Magnesium Oxide TAB* 400 MG PO SCH ×2 (09:05→21:40)
[2018-07-03] MEDS ORDERED: NS 0.9% 1000 ML** 1,000 ML IV SCH (09:15)
[2018-07-03 15:49] LABS: HLA B27 Negative
--- NOTE | 2018-07-03 17:16 | PN ---
Subjective Date of Service: 07/03/18 Interval History: Pt states that he feels run down today, but is unable to describe any specifics. He appears anxious about going to rehab and is worried about how long he will be there, but is motivated to go and improve movement. At the same time, he worries that his roommates will have difficulty taking care of household tasks without his help. He states that he has been up and walking today, but that he has not yet worked with PT today. He states that he is continuing to urinate without difficulty after jeffers removal. He also states that his R hip feels much better after injection today, though he continues to have pain in L shoulder, R hip, and b/l feet. He denies CP, SOB, abd pain, n/v/d. He states that he had a BM today, but that it was difficult to pass. He denies pain in calves. Objective Active Medications: Acetaminophen (Tylenol Tab*) 975 mg PO TID PRN Aliskiren (Tekturna Tab*) 150 mg PO QAM PANDA Amlodipine Besylate (Norvasc Tab*) 10 mg PO DAILY [facility] Aspirin (Aspirin Ec Tab*) 81 mg PO DAILY [facility] Dextrose (D50w Syringe 50 Ml*) 12.5 gm IV PUSH .FOR FS < 60 - SS PRN Escitalopram Oxalate (Lexapro *) 20 mg PO DAILY [facility] Fluticasone Propionate (Flonase Nasal [place] 50mcg*) 2 spray BOTH NARES DAILY PANDA Folic Acid (Folvite Tab*) 1 mg PO DAILY [facility] Hydralazine HCl (Apresoline Tab*) 50 mg PO TID PANDA Hydroxychloroquine Sulfate (Plaquenil Tab*) 200 mg PO BID PANDA Hydroxyzine HCl (Atarax Tab*) 25 mg PO Q6H PRN Sodium Chloride (Ns 0.9% 1000 Ml) 1,000 mls @ 100 mls/hr IV PER RATE PANDA Insulin Glargine (Lantus(*)) 65 units SUBCUT BEDTIME PANDA Insulin Human Lispro (Humalog*) 0 units SUBCUT ACHS PANDA; Protocol Insulin Human Lispro (Humalog*) 10 units SUBCUT ACHS [facility] Magnesium Oxide (Magox 400 Tab*) 400 mg PO BID PANDA Metformin HCl (Glucophage*) 1,000 mg PO BID [facility] Metolazone (Zaroxolyn Tab*) 2.5 mg PO DAILY [facility] Metoprolol Tartrate (Lopressor Tab*) 50 mg PO BID [facility] Mometasone Furoate (Asmanex 220 Mcg Mdi *) 2 puff INH QPM [facility] Morphine Sulfate (Morphine 4 Mg/Ml Vial (1 Ml)) 4 mg IV Q4H PRN Morphine Sulfate (Ms Contin(*)) 30 mg PO TID PRN Oxycodone HCl (Roxycodone Tab*) 5 mg PO QID PRN Polyethylene Glycol/Electrolytes (Miralax*) 17 gm PO DAILY [facility] Prednisone (Deltasone Tab*) 30 mg PO DAILY [facility] Pregabalin (Lyrica Cap(*)) 75 mg PO TID PRN Spironolactone (Aldactone Tab*) 50 mg PO DAILY [facility] Torsemide (Torsemide) 40 mg PO BID [facility] Warfarin Sodium (Coumadin Tab(*)) 7.5 mg PO ONCE@1700 ONE; Protocol Warfarin Sodium (Coumadin Tab(*)) 3.75 mg PO DAILY@1700 PANDA; Protocol Vital Signs: Temp Pulse Resp BP Pulse Ox 97.9 F 71 18 134/61 100 07/03/18 15:28 07/03/18 15:28 07/03/18 15:28 07/03/18 15:28 07/03/18 15:28 Oxygen Devices in Use Now: Nasal Cannula Appearance: Pt is sitting at edge of bed. he appears to be in no acute distress. Ears/Nose/Mouth/Throat: NL Teeth, Lips, Gums, Clear Oropharnyx, Mucous Membranes Moist Neck: NL Appearance and Movements; NL JVP, Trachea Midline Respiratory: Symmetrical Chest Expansion and Respiratory Effort, Clear to Auscultation Cardiovascular: NL Sounds; No Murmurs; No JVD, RRR, No Edema Abdominal: NL Sounds; No Tenderness; No Distention, No Hepatosplenomegaly, - - Obese Extremities: No Edema, No Clubbing, Cyanosis Neurological: Alert and Oriented x 3, NL Muscle Strength and Tone Result Diagrams: 07/02/18 06:17 07/03/18 07:48 Microbiology and Other Data: Microbiology 06/28/18 22:06 Urine Culture - Final Urine No Growth (<1,000 CFU/mL) Assess/Plan/Problems-Billing Assessment: 57 yo M PMH seroneg RA previously on biologic/MTX (stopped 2/2 to LTFU), chronic pain on halfway opiate pain medication, atrial fibrillation on AC, HfpEF (last EF 2014 60%, with mild diastolic dysfxn) IDDM, CKD 3, NEAL on CPAP, COPD and chronic resp failure on 3L NC baseline, HTN, anxiety and depression, who presented with diffuse pain and elevated inflammatory markers. DDx RA flare in setting of stopping DMARD, other infectious source, possible vasculitis. - Patient Problems (1) Seronegative rheumatoid arthritis Comment: -Improving daily; awaiting THADDEUS placement -On Plaquenil currently -CK low less concerning for rhabdo -We will hold on initiation of DMARD at this time -Current pain regimen (2) Subtherapeutic international normalized ratio (INR) Comment: -INR 1.73 -Pt typically takes 7.5 on Sun and half doses rest of week. He will take 7.5 today, recheck INR in a.m., and follow closely outpatient (3) Anxiety Comment: - Worsened over some months, with depression as well - Increase Lexapro to 20mg while in hospital - On review of meds with patient he does not take lorazepam regulalry, in fact used "years old script" unsanctioned-we discuss d/c given high risk opiate/ benzo use and trialing other anxiolytics - Trial of Hydroxyzine in place of Lorazepam 25mg Q 6 hr PRN (4) HTN (hypertension) Comment: -WNL -Continue Aliskiren, metoprolol, diuretics, amlodipine, hydral TID (5) Type 2 diabetes mellitus Comment: -Control improving -Continue Lantus, and Lispro SS, add Lispro standing with meals 8 U while on pred. -Currently on home Metformin (6) Diastolic heart failure Comment: -HFpEF, EF 60% in 2015 with mild relaxation dysfxn -Continue diuretic regimen -BNP ~300s (7) Atrial fibrillation Comment: -Rate controlled -Continue metopolol and warfarin. (8) COPD (chronic obstructive pulmonary disease) Comment: -Stable with no s/s exacerbation; CXR without infiltrate -Continue bronchodilators and inhaled steroids. -O2 dependent on 3L NC at home and inpatient (9) CKD (chronic kidney disease) stage 3, GFR 30-59 ml/min Comment: -At baseline (10) NEAL (obstructive sleep apnea) Comment: -Continue home CPAP use (11) DVT prophylaxis Comment: -Warfarin, INR 2.22 (12) Full code status Status and Disposition: Inpatient. PT eval done; suggesting skilled PT. Continue Prednisone with taper and outpatient Rheum follow up for beginning DMARD.
[2018-07-03] MEDS ORDERED: Warfarin TAB(*) 7.5 MG PO ONE (18:00)
[2018-07-03] MEDS ORDERED: Triamcinolone Acetonide* 40 MG/ML 1 ML VIAL INTRAARTIC ONE (18:38)
--- NOTE | 2018-07-03 19:14 | PN ---
Subjective - Subjective Reason for Note: Progress Note Date of Service: 07/03/18 - chief complaint: RA flare History: Generally Mr. Cordon is feeling better. He is more optimistic that Rehab will help. His hip is better after the bursal injection yesterday; however his left shoulder is painful and restricted. Still requiring pain medication and ambulatory assistance and some assistance with transfers but he is trying to be more active. Awaiting rehab placement Active Problems: Active Problems Anxiety (Acute) F41.9 - Worsened over some months, with depression as well - Increase Lexapro to 20mg while in hospital - On review of meds with patient he does not take lorazepam regulalry, in fact used "years old script" unsanctioned-we discuss d/ c given high risk opiate/benzo use and trialing other anxiolytics - Trial of Hydroxyzine in place of Lorazepam 25mg Q 6 hr PRN Diastolic heart failure (Acute) I50.30 -HFpEF, EF 60% in 2014 with mild relaxation dysfxn -Continue diuretic regimen -BNP ~300s Seronegative rheumatoid arthritis (Acute) M06.00 -Improving daily; awaiting [facility] placement -On Plaquenil currently -CK low less concerning for rhabdo -We will hold on initiation of DMARD at this time - Current pain regimen Subtherapeutic international normalized ratio (INR) (Acute) R79.1 -INR 1.73 -Pt typically takes 7.5 on Sun and half doses rest of week. He will take 7.5 today, recheck INR in a.m., and follow closely outpatient Urinary retention (Acute) R33.9 -Andre removed and pt urinating on own -Resolved Current Medications: Current Medications Acetaminophen (Tylenol Tab*) 975 mg PO TID PRN PRN Reason: PAIN Last Admin: 07/02/18 20:23 Dose: 975 mg Aliskiren (Tekturna Tab*) 150 mg PO QAM [facility] Last Admin: 07/03/18 08:51 Dose: 150 mg Amlodipine Besylate (Norvasc Tab*) 10 mg PO DAILY [facility] Last Admin: 07/03/18 08:53 Dose: 10 mg Aspirin (Aspirin Ec Tab*) 81 mg PO DAILY [facility] Last Admin: 07/03/18 08:53 Dose: 81 mg Dextrose (D50w Syringe 50 Ml*) 12.5 gm IV PUSH .FOR FS < 60 - SS PRN PRN Reason: FS < 60 Escitalopram Oxalate (Lexapro *) 20 mg PO DAILY [facility] Last Admin: 07/03/18 08:52 Dose: 20 mg Fluticasone Propionate (Flonase Nasal [place] 50mcg*) 2 spray BOTH NARES DAILY [facility] Last Admin: 07/03/18 08:50 Dose: 2 spray Folic Acid (Folvite Tab*) 1 mg PO DAILY [facility] Last Admin: 07/03/18 08:52 Dose: 1 mg Hydralazine HCl (Apresoline Tab*) 50 mg PO TID [facility] Last Admin: 07/03/18 13:13 Dose: 50 mg Hydroxychloroquine Sulfate (Plaquenil Tab*) 200 mg PO BID [facility] Last Admin: 07/03/18 08:52 Dose: 200 mg Hydroxyzine HCl (Atarax Tab*) 25 mg PO Q6H PRN PRN Reason: ANXIETY Sodium Chloride (Ns 0.9% 1000 Ml) 1,000 mls @ 100 mls/hr IV PER RATE [facility] Stop: 07/03/18 19:14 Last Admin: 07/03/18 10:59 Dose: 100 mls/hr Insulin Glargine (Lantus(*)) 65 units SUBCUT BEDTIME [facility] Last Admin: 07/02/18 20:30 Dose: 65 units Insulin Human Lispro (Humalog*) 0 units SUBCUT ACHS [facility]; Protocol Last Admin: 07/03/18 17:27 Dose: 9 units Insulin Human Lispro (Humalog*) 10 units SUBCUT ACHS [facility] Last Admin: 07/03/18 17:27 Dose: 10 units Magnesium Oxide (Magox 400 Tab*) 400 mg PO BID [facility] Last Admin: 07/03/18 09:05 Dose: 400 mg Metformin HCl (Glucophage*) 1,000 mg PO BID [facility] Last Admin: 07/03/18 08:52 Dose: 1,000 mg Metolazone (Zaroxolyn Tab*) 2.5 mg PO DAILY [facility] Last Admin: 07/03/18 08:51 Dose: 2.5 mg Metoprolol Tartrate (Lopressor Tab*) 50 mg PO BID [facility] Last Admin: 07/03/18 09:05 Dose: 50 mg Mometasone Furoate (Asmanex 220 Mcg Mdi *) 2 puff INH QPM [facility] Last Admin: 07/02/18 19:43 Dose: 2 puff Morphine Sulfate (Morphine 4 Mg/Ml Vial (1 Ml)) 4 mg IV Q4H PRN PRN Reason: PAIN Last Admin: 07/02/18 20:23 Dose: 4 mg Morphine Sulfate (Ms Contin(*)) 30 mg PO TID PRN PRN Reason: PAIN Last Admin: 07/03/18 17:26 Dose: 30 mg Oxycodone HCl (Roxycodone Tab*) 5 mg PO QID PRN PRN Reason: PAIN Last Admin: 07/03/18 17:27 Dose: 5 mg Polyethylene Glycol/Electrolytes (Miralax*) 17 gm PO DAILY [facility] Last Admin: 07/03/18 08:50 Dose: 17 gm Prednisone (Deltasone Tab*) 30 mg PO DAILY [facility] Last Admin: 07/03/18 08:51 Dose: 30 mg Pregabalin (Lyrica Cap(*)) 75 mg PO TID PRN PRN Reason: PAIN Last Admin: 07/03/18 17:26 Dose: 75 mg Spironolactone (Aldactone Tab*) 50 mg PO DAILY [facility] Last Admin: 07/03/18 08:52 Dose: 50 mg Torsemide (Torsemide) 40 mg PO BID [facility] Last Admin: 07/03/18 09:05 Dose: 40 mg Warfarin Sodium (Coumadin Tab(*)) 3.75 mg PO DAILY@1700 PANDA; Protocol - Review of Systems General Comments: No acute distress sitting up Constitutional Symptoms: No: Weight Gain, Weight Loss, Fever, Night Sweats, Unexplained Falls Dermatology: Normal: Yes HEENT: Yes Normal Eyes: Positive: Normal Pulmonary: Positive: Normal, Exercise Intolerance Cardiology: Positive: Normal Gastroenterology: Positive: Normal Musculoskeletal: Positive: Joint Pain, Joint Stiffness, Arthritis Neurology: Positive: Normal, Change in Walking - Slightly improved gait Allergic/Immunologic: Positive: Immunocompromise Home Medications: Home Medications Medication Instructions Recorded Confirmed Type Aliskiren TAB* [Tekturna TAB*] 150 mg PO QAM 01/21/12 06/28/18 History Fluticasone NASAL * [Flonase *] 2 spray BOTH NARES DAILY 01/21/12 06/28/18 History Folic Acid TAB* [Folvite TAB*] 1 mg PO DAILY 01/21/12 06/28/18 History Metolazone TAB* [Zaroxolyn TAB*] 2.5 mg PO DAILY 01/21/12 06/28/18 History Metoprolol Tartrate TAB* 50 mg PO BID 01/21/12 06/28/18 History [Lopressor TAB*] metFORMIN* [Glucophage 500 MG TAB 1,000 mg PO BID 01/21/12 06/28/18 History *] Acetaminophen TAB* [Tylenol TAB*] 1,000 mg PO TID PRN 09/30/14 06/28/18 History Fluticasone HFA 110 mcg(NF) 2 puff INH BID 09/30/14 06/28/18 History [Flovent HFA 110 mcg(NF)] Spironolactone TAB* [Aldactone TAB 50 mg PO DAILY 09/30/14 06/28/18 History 25 MG*] amLODIPine TAB* [Norvasc 5 mg TAB*] 10 mg PO DAILY 09/30/14 06/28/18 History zzInsulin GLARGINE(*) [zzLantus(*)] 50 units SUBCUT BEDTIME 09/30/14 06/28/18 History Hydroxychloroquine TAB* [Plaquenil 200 mg PO BID 05/26/16 06/28/18 History TAB*] Magnesium Oxide [Magnesium Oxide-] 400 mg PO BID 05/26/16 06/28/18 History Polyethylene Glycol 3350* 17 gm PO DAILY 05/26/16 06/28/18 History [Miralax*] Glimepiride (NF) 4 mg PO BID tab 05/30/16 06/28/18 Rx Torsemide [Demadex 20 MG] 40 mg PO BID 09/08/16 06/28/18 History Albuterol/Ipratropium RESP(NF) 2 puff INH QID 05/23/17 06/28/18 History [Combivent Respimat (NF)] Varenicline Tartrate [Chantix] 1 mg PO DAILY 06/13/17 06/28/18 History Adalimumab [Humira(Cf)] 40 mg SUBCUT Q14D 11/21/17 06/28/18 History Aspirin [Aspir-Low] 81 mg PO DAILY 11/21/17 06/28/18 History Morphine Sulfate [Ms Contin] 30 mg PO TID PRN 11/21/17 06/28/18 History Oxycodone HCl 5 mg PO QID PRN 11/21/17 06/28/18 History Pregabalin [Lyrica] 75 mg PO TID PRN 11/21/17 06/28/18 History Escitalopram * [Lexapro 10 mg (NF)] 10 mg PO DAILY 06/28/18 06/28/18 History Hydralazine HCl 50 mg PO TID 06/28/18 06/28/18 History Warfarin TAB(*) [Coumadin TAB(*)] 7.5 mg PO SEE INSTRUCTIONS 06/28/18 06/28/18 History predniSONE TAB* [Deltasone 20 MG 20 mg PO DAILY #0 tab 07/03/18 Rx TAB*] Allergies: Allergies Allergy/AdvReac Type Severity Reaction Status Date / Time tiotropium Allergy lightheaded Verified 04/25/18 15:46 [From Spiriva with ness HandiHaler] Objective - Vital Signs Vital Signs: Vital Signs 07/02/18 07/02/18 07/02/18 19:15 19:46 20:00 Temperature 97.0 F Pulse Rate 88 80 Respiratory 22 16 18 Rate Blood Pressure 137/51 (mmHg) O2 Sat by Pulse 98 98 Oximetry 07/02/18 07/02/18 07/03/18 20:23 21:30 00:03 Temperature 96.7 F Pulse Rate 55 Respiratory 18 18 21 Rate Blood Pressure 121/53 (mmHg) O2 Sat by Pulse 100 Oximetry 07/03/18 07/03/18 07/03/18 02:52 03:15 07:40 Temperature 97.1 F 97.1 F 98.0 F Pulse Rate 64 64 78 Respiratory 21 21 14 Rate Blood Pressure 123/66 123/66 131/61 (mmHg) O2 Sat by Pulse 100 100 100 Oximetry 07/03/18 07/03/18 07/03/18 08:00 08:31 08:52 Temperature 98.0 F Pulse Rate 60 Respiratory 16 16 16 Rate Blood Pressure 153/60 (mmHg) O2 Sat by Pulse 95 Oximetry 07/03/18 07/03/18 07/03/18 08:53 11:56 13:06 Temperature 97.4 F Pulse Rate 72 Respiratory 16 20 18 Rate Blood Pressure 134/58 (mmHg) O2 Sat by Pulse 100 Oximetry 07/03/18 07/03/18 07/03/18 13:13 15:28 17:26 Temperature 97.4 F 97.9 F Pulse Rate 72 71 Respiratory 18 18 16 Rate Blood Pressure 134/58 134/61 (mmHg) O2 Sat by Pulse 100 100 Oximetry 07/03/18 17:27 Temperature Pulse Rate Respiratory 16 Rate Blood Pressure (mmHg) O2 Sat by Pulse Oximetry - Intake and Output Intake and Output: Intake & Output 07/01/18 07/02/18 07/03/18 07/04/18 06:59 06:59 06:59 06:59 Intake Total 1620 3360 1900 1830 Output Total 6025 7450 2820 1000 Balance -4405 -4090 -920 830 Intake: Oral 1620 3360 1900 1830 Output: Urine 3600 2820 1000 Andre 6025 3850 Other: Estimated Void Medium Date of Last Bowel 266132 Movement # Bowel Movements 1 0 1 Estimated Stool Amount Medium Large Medium # Voids 2 1 ADLs: Meal Record Start: 06/29/18 01: 40 Freq: DAILY@0900,1400,1800 Status: Active Protocol: Created 06/29/18 01:40 System (Rec: 06/29/18 01:40 System [id number]-C07) Document 06/29/18 09:00 [id number] (Rec: 06/29/18 13:15 [id number] MED-C09) Document 06/30/18 09:00 [id number] (Rec: 06/30/18 13:41 [id number] MED-C09) Document 06/30/18 14:00 [id number] (Rec: 06/30/18 16:12 [id number] MED-C09) Document 06/30/18 18:00 [id number] (Rec: 06/30/18 18:08 [id number] MED-C05) Document 07/01/18 09:00 [id number] (Rec: 07/01/18 09:34 [id number] MED-C11) Document 07/01/18 13:55 [id number] (Rec: 07/01/18 13:56 [id number] MED-C09) Document 07/01/18 18:00 [id number] (Rec: 07/01/18 18:53 [id number] MED-C09) Document 07/02/18 09:00 [id number] (Rec: 07/02/18 10:07 [id number] MED-C09) Document 07/02/18 14:00 [id number] (Rec: 07/02/18 16:38 [id number] MED-C11) Document 07/02/18 18:00 [id number] (Rec: 07/02/18 18:45 [id number] MED-C09) Document 07/03/18 09:00 [id number] (Rec: 07/03/18 09:39 [id number] MED-C11) Document 07/03/18 12:59 [id number] (Rec: 07/03/18 13:00 [id number] MED-C11) Intake and Output Start: 06/28/18 20: 05 Freq: Status: Active Protocol: Created 06/28/18 20:05 System (Rec: 06/28/18 20:05 System ED-C25) Document 07/03/18 12:44 [id number] (Rec: 07/03/18 12:45 [id number] MED-C11) Intake and Output Start: 06/29/18 01: 40 Freq: DAILY@0600,1400,2200 Status: Active Protocol: Created 06/29/18 01:40 System (Rec: 06/29/18 01:40 System EDRM-C07) Document 06/29/18 05:47 [id number] (Rec: 06/29/18 05:49 [id number] MED-C16) Document 06/29/18 14:00 [id number] (Rec: 06/29/18 14:25 [id number] MED-C09) Document 06/29/18 21:32 [id number] (Rec: 06/29/18 21:34 [id number] MED-C02) Document 06/30/18 05:33 [id number] (Rec: 06/30/18 05:35 [id number] MED-C02) Document 06/30/18 14:00 [id number] (Rec: 06/30/18 16:12 [id number] MED-C09) Document 06/30/18 22:00 [id number] (Rec: 06/30/18 22:16 [id number] MED-C04) Document 07/01/18 05:23 [id number] (Rec: 07/01/18 05:24 [id number] MED-C13) Document 07/01/18 14:00 [id number] (Rec: 07/01/18 14:10 [id number] MED-C09) Document 07/01/18 22:00 [id number] (Rec: 07/01/18 23:08 [id number] MED-C14) Document 07/02/18 05:37 [id number] (Rec: 07/02/18 05:37 [id number] MED-C14) Document 07/02/18 14:00 [id number] (Rec: 07/02/18 16:38 [id number] MED-C11) Document 07/02/18 22:00 [id number] (Rec: 07/02/18 22:33 [id number] MED-C11) Document 07/03/18 03:54 [id number] (Rec: 07/03/18 03:56 [id number] MED-C09) Document 07/03/18 12:43 [id number] (Rec: 07/03/18 12:44 [id number] MED-C11) Document 07/03/18 12:44 [id number] (Rec: 07/03/18 12:45 [id number] MED-C11) - Physical Exam General Physical Exam Comment: No acute distress Eye Exam: bilateral: PERRLA Thyroid Function: Clinically Euthyroid Endocrine: Yes Central Obesity Lungs and Chest: Yes: Chest Expansion Full, Chest Expansion Symetrica, Percussion Note Resonant Heart Rate and Rhythm: Regular JVP: Not Elevated [place] Beat: Non Displaced Additional Cardiovascular: Yes: [place] Beat not Displaced, Normal Heart Sounds Abdominal Exam: Yes: Soft - Rheumotological System Joints: Range of Motion - Tender left lateral shoulder and left subacromia bursal region noted at 90 degrees active and passive flexion; right hip is improved; there is no synovitis; mild knee tenderness. Positive left shoulder impingement, Signs of Connective Tissue Disease Additional Musculoskeletal: Lordosis - Extremities Feet Sensation: Abnormal: Sensory - Neuro Orientation: A/O x3 Psychiatric: Normal Speech: Normal Results - Results Lab Results: Laboratory Results - last 24 hr 06/29/18 07/02/18 07/03/18 11:42 20:01 07:48 INR (Anticoag Therapy) 1.73 H Sodium Potassium Chloride Carbon Dioxide Anion Gap BUN Creatinine Est GFR ( Amer) Est GFR (Non-Af Amer) BUN/Creatinine Ratio Glucose POC Glucose (mg/dL) 255 H Calcium HLA-B27 Negative HLA-B27 Interpretation See comment 07/03/18 07/03/18 07/03/18 07:48 08:30 11:45 INR (Anticoag Therapy) Sodium 136 Potassium 3.5 Chloride 93 L Carbon Dioxide 34 H Anion Gap 9 BUN 61 H Creatinine 1.42 H Est GFR ( Amer) 62.2 Est GFR (Non-Af Amer) 51.4 BUN/Creatinine Ratio 43.0 H Glucose 160 H POC Glucose (mg/dL) 172 H 211 H Calcium 10.0 HLA-B27 HLA-B27 Interpretation 07/03/18 17:01 INR (Anticoag Therapy) Sodium Potassium Chloride Carbon Dioxide Anion Gap BUN Creatinine Est GFR ( Amer) Est GFR (Non-Af Amer) BUN/Creatinine Ratio Glucose POC Glucose (mg/dL) 268 H Calcium HLA-B27 HLA-B27 Interpretation Assessment - Problem List Assessment: Patient Problems Anxiety (Acute) Diastolic heart failure (Acute) Seronegative rheumatoid arthritis (Acute) Subtherapeutic international normalized ratio (INR) (Acute) Urinary retention (Acute) Abdominal pain with vomiting (Acute) CKD (chronic kidney disease) stage 3, GFR 30-59 ml/min (Acute) Chest pain (Acute) DVT prophylaxis (Acute) Full code status (Acute) Left shoulder pain (Acute) Atrial fibrillation (Chronic) COPD (chronic obstructive pulmonary disease) (Chronic) Dilated cardiomyopathy (Chronic) HTN (hypertension) (Chronic) Morbid obesity (Chronic) NEAL (obstructive sleep apnea) (Chronic) Type 2 diabetes mellitus (Chronic) Plan: RA seronegative: generally improved. Serum creatinine seems stable, but it would seem prudent to wait one more week to start Methotrexate again to make sure renal function stabilizes. It will not be enough terminal gauger to control his RA so we will need to discuss Cori as an out patient; he will need to follow up with me in 1 week after d/c Continue steroid taper. Left shoulder bursitis; I advised a shoulder injection. Mr. Cordon consented after risks and benefits were explained including bleeding and trauma and infection. The left lateral shoulder was prepped with betadine times 3 where tenderness had been palpated. Kenalog 1.2 cc and Lidocaine 1.2 cc was drawn up in a 3 cc syringe and injected in this left lateral shoulder region with 22 g needle. He tolerated this well and was monitored afterwards. Band aid applied Coordination of Care: Yes
[2018-07-03] MEDS: Warfarin TAB(*) 7.5 MG PO SCH (19:35)
[2018-07-03] MEDS: Mometasone 220 MCG MDI INH SCH (19:56)
[2018-07-03] MEDS: Insulin GLARGINE(*) 1 UNITS UNIT SUBCUT SCH (21:38)
[2018-07-03] MEDS: Acetaminophen TAB* 325 MG PO PRN (21:40)
[2018-07-04 07:19] LABS: INR 2.06 (0.77-1.02)
[2018-07-04 07:57] LABS: Calcium 9.6 mg/dL (8.6-10.3); EGFR African American 58.4 (>60); EGFR Non-African American 48.2 (>60); Potassium 3.9 mmol/L (3.5-5.0)
[2018-07-04] MEDS: Insulin LISPRO* 1 UNITS UNIT SUBCUT SCH ×4 (08:26→12:09)
[2018-07-04] MEDS: Aliskiren TAB* 150 MG PO SCH (08:27)
[2018-07-04] MEDS: amLODIPine TAB* 5 MG PO SCH (08:27)
[2018-07-04] MEDS: Escitalopram * 20 MG TABLET PO SCH (08:28)
[2018-07-04] MEDS: Aspirin EC TAB* 81 MG TAB.EC PO SCH (08:28)
[2018-07-04] MEDS: hydrALAZINE TAB* 25 MG PO SCH (08:28)
[2018-07-04] MEDS: Folic Acid TAB* 1 MG PO SCH (08:28)
[2018-07-04] MEDS: Fluticasone NASAL SPRAY 50MCG* 16 gm SPRAY BTL BOTH NARES SCH (08:28)
[2018-07-04] MEDS: Polyethylene Glycol 3350* 17 GM PACKET PO SCH (08:29)
[2018-07-04] MEDS: metFORMIN* 500 MG TAB PO SCH (08:29)
[2018-07-04] MEDS: Hydroxychloroquine TAB* 200 MG PO SCH (08:29)
[2018-07-04] MEDS: Magnesium Oxide TAB* 400 MG PO SCH (08:29)
[2018-07-04] MEDS: Metoprolol Tartrate TAB* 50 mg PO SCH (08:29)
[2018-07-04] MEDS: Metolazone TAB* 5 MG PO SCH (08:29)
[2018-07-04] MEDS: Spironolactone TAB* 25 MG PO SCH (08:30)
[2018-07-04] MEDS: predniSONE TAB* 20 MG PO SCH (08:30)
[2018-07-04] MEDS: Torsemide TAB 10 MG PO SCH (08:30)
[2018-07-04] MEDS: Morphine TAB Extended Release (*) 30 MG TAB.ER PO PRN (11:02)
[2018-07-04] MEDS: Pregabalin CAP(*) 25 MG PO PRN (11:02)
[2018-07-04 11:19] VITALS: BP 118/79
--- NOTE | 2018-07-04 13:19 | DS ---
CC: Torres Do MD; Shravan Santillan MD* DISCHARGE SUMMARY: DATE OF ADMISSION: 06/29/18 DATE OF DISCHARGE: 07/04/18 PRIMARY CARE PROVIDER: Torres Do MD. RAILWAY TRACTION LINE WORKER: Shravan Santillan MD. ATTENDING PHYSICIAN: Dr. Daniel Wharton* (dictated by YOVANI Patterson). PRIMARY DIAGNOSIS: Rheumatoid arthritis flare. SECONDARY DIAGNOSES: 1. Chronic atrial fibrillation. 2. Cardiomyopathy. 3. Diabetes mellitus, type 2, insulin dependent. 4. Hypertension. 5. Chronic kidney disease, stage 3. 6. Proteinuria. 7. Morbid obesity. 8. Chronic obstructive pulmonary disease with chronic respiratory failure requiring 3 L O2 nasal cannula at all times. 9. Obstructive sleep apnea, on CPAP. 10. Seronegative rheumatoid arthritis. CONSULTATION WHILE IN THE HOSPITAL: Dr. Shravan Santillan, Rheumatology. STUDIES WHILE IN THE HOSPITAL: 1. Chest x-ray, 06/29/18, impression: Findings suggestive of COPD. No evidence for acute findings. 2. Hip x-ray, 06/30/18, impression: Osteoarthritis, no acute osseous injury. If symptoms persist, recommend repeat imaging. DISCHARGE MEDICATIONS: Home medications: 1. Albuterol/ipratropium Respimat 2 puffs inhalation 4 times a day. 2. Acetaminophen 1000 mg p.o. t.i.d. p.r.n. 3. Torsemide 40 mg p.o. b.i.d. 4. Oxycodone HCl 5 mg p.o. four times a day p.r.n. 5. Metolazone 2.5 mg p.o. daily. 6. Fluticasone nasal spray 2 sprays to both nares daily. 7. Fluticasone HFA 110 mcg 2 puffs inhalation b.i.d. 8. Insulin glargine 50 units subcu at bedtime. 9. Varenicline tartrate 1 mg p.o. daily. 10. Polyethylene glycol 3350 17 g p.o. daily. 11. Metoprolol tartrate 50 mg p.o. b.i.d. 12. Escitalopram 10 mg p.o. daily. 13. Spironolactone 50 mg p.o. daily. 14. Morphine sulfate 30 mg p.o. t.i.d. p.r.n. 15. Glimepiride 4 mg p.o. b.i.d. 16. Aliskiren 150 mg p.o. q.a.m. 17. Aspirin 81 mg p.o. daily. 18. Amlodipine 10 mg p.o. daily. 19. Pregabalin 75 mg p.o. t.i.d. p.r.n. 20. Folic acid 1 mg p.o. daily. 21. Warfarin 7.5 mg p.o. on Sunday, one-half tab remaining days. 22. Magnesium oxide 400 mg p.o. b.i.d. 23. Plaquenil 200 mg p.o. b.i.d. 24. Hydralazine 50 mg p.o. t.i.d. 25. Metformin 1000 mg p.o. b.i.d. New home medications: Prednisone 20 mg x3 days starting tomorrow, then decrease to 10 mg x3 days, then discontinue. HISTORY OF PRESENT ILLNESS/HOSPITAL COURSE: Mr. Cordon is a 57-year-old male with a past medical history of seronegative rheumatoid arthritis, who presented to the ER on 06/29/18 after waking with full body pain in all joints. He has noted to have been diagnosed with seronegative rheumatoid arthritis in 2011. He has a difficult time getting a course of treatment for RA. He had been treated with methotrexate and Humira up until recently. He states that he has not been able to follow up with his sander and polisher recently and has run out of his methotrexate and Humira for several weeks, thus presenting with uncontrolled pain thereafter. He is admitted to the hospital under the care of hospitalist group with consult to Rheumatology. He was started on prednisone with gradual taper. He received a full workup to try to determine the cause of his seronegative rheumatoid arthritis. This included CMV IgG, IgM, IgG antibodies, ALEXEY, c-ANCA antibody, p-ANCA antibody, HLA-B27, myeloperoxidase antibody and proteinase 3. All of these were negative. Dr. Santillan who was a sander and polisher that was consulted recommended prednisone taper, which he was started on. He also felt that the patient may benefit from Orencia, which he would prefer to start in the outpatient setting. The patient will follow up with Dr. Santillan. He also received cortisone injections in the left shoulder and right hip, which he reports improvement in pain symptoms after. The patient will remain on Plaquenil as well as prednisone taper at discharge. He will be discharged to subacute rehab. At the time of discharge, the patient states that his left shoulder and right hip feel much better, although he continues to have pain in both of his feet, which is where the majority of his pain is. He states he has been up transferring too and from the bathroom with a walker. He is eating and drinking well and has not had a bowel movement today. He is urinating well. He denies chest pain, cough or fever. He does complain of shortness of breath, when he has a increase in his pain, but he denies shortness of breath right now. He denies abdominal pain, nausea, vomiting, diarrhea, constipation or pain in the calves. Mr. Cordon is stable for discharge to [facility] for subacute rehab. PHYSICAL EXAMINATION: Vital Signs: Temperature 97.8 orally, heart rate 72, respiratory rate 18, oxygen saturation 100% on 3 L nasal cannula, blood pressure 118/79. General: Mr. Cordon is a well-developed, well-nourished, morbidly obese middle-aged male, who is sitting up in the edge of his bed. He is in no acute distress. HEENT: Visual ramos are grossly intact. The pupils are equally round and reactive to light. Extraocular movements are intact. Sclerae are without icterus. Hearing is grossly intact. Oral mucous membranes are moist. There are no lesions. The pharynx is clear. Neck with full range of motion without lymphadenopathy. Cardiovascular: Regular rate with irregular rhythm. S1, S2 present. No murmurs, rubs or gallops. No JVD. Respiratory: Symmetrical chest expansion with no use of accessory muscles. Lungs: Clear to auscultation. There is no rhonchi, wheezes, or rubs. Abdomen : Obese. Bowel sounds are normoactive throughout. Abdomen is soft and nontender to palpation. There is no hepatosplenomegaly. Musculoskeletal: The patient has painful range of motion without deformity or swelling. Ankle and feet are tender to palpation. Other areas are nontender. The left shoulder and right hip injection sites are intact without signs of infection with clean, dry dressing in place. Extremities: Skin is warm and smooth bilaterally. There is no clubbing, cyanosis, or edema. Radial and pedal pulses are palpable. Neuro: The patient is awake. He is alert and oriented x3. He is able to move all of his extremities. Cranial nerves are grossly intact. DISCHARGE PLAN: Mr. Cordon will be discharged to [facility]. ACTIVITY: As tolerated. DIET: Heart healthy, ADA/diabetic. MEDICATIONS: As above. EDUCATION: 1. Follow up with primary care physician in 4 to 7 days. 2. Follow up with sander and polisher in 4 to 7 days to discuss possibility of starting Orencia. 3. Continue to monitor injection sites, left shoulder and right hip. 4. Continue prednisone 20 mg for 3 days starting 07/05/18, then 10 mg for 3 days and discontinue. 5. INR was within range at 2.06 today. Suggest weekly INR. 6. Discontinue Humira. 7. Return to the ER or nearest hospital if you experience any worsening of symptoms, shortness of breath, lightheadedness, dizziness, chest discomfort, high fevers, chills, night sweats, loss of consciousness, or any other worrisome signs or symptoms. This is a summarized report of a complex medical history and hospital stay. For further details, please see the entire medical record. TIME SPENT: Approximately 35 minutes was spent on this discharge; greater than half of that time was spent [id number] with the patient discussing discharge plans and instructions. YOVANI HENNING [id number]/[facility] #: [id number] MTDD
--- NOTE | 2018-07-04 13:22 | CONSULT ---
Consult Consult: INPATIENT PAIN CONSULTATION Sherif Cordon is a 57 year old male known to the pain service. He has a history of seronegative rheumatoid arthritis and diabetic peripheral neuropathy. He is on chronic opioid therapy for his pain and normally sees Rosa Maria Huerta NP, in the pain clinic. For his pain, he takes MS Contin, 30 mg TID, and Oxycodone 5 mg tabs Q 4 hours as needed (MDD=3) and Lyrica 75 mg TID. He came to the hospital on June 29 complaining of widespread body pain. He normally takes Methtrexate and Humira for his RA but had run out of both meds several weeks before admission. Apparently he had missed several appointments with his nurse practitioner at the rheumatology office. He was admittted and started on a Prednisone taper. His pain medications were continued. He complained of a lot of pain and had difficulty managing his ADLs. Arrangements were made for him to go to [facility] but then his symptoms improved, after the Prednisone and a steroid injection yesterday, and now will be discharged home. I am asked to evaluate his medications. PAST MEDICAL HISTORY: Seronegative RA, DPN, Diabetes, COPD, Atrial fibrillation , Cardiomyopathy, HTN, CKD, NEAL Allergies Allergy/AdvReac Type Severity Reaction Status Date / Time tiotropium Allergy lightheaded Verified 04/25/18 15:46 [From Spiriva with ness HandiHaler] Current Medications Acetaminophen (Tylenol Tab*) 975 mg PO TID PRN PRN Reason: PAIN Last Admin: 07/03/18 21:40 Dose: 975 mg Aliskiren (Tekturna Tab*) 150 mg PO QAM [facility] Last Admin: 07/04/18 08:27 Dose: 150 mg Amlodipine Besylate (Norvasc Tab*) 10 mg PO DAILY [facility] Last Admin: 07/04/18 08:27 Dose: 10 mg Aspirin (Aspirin Ec Tab*) 81 mg PO DAILY [facility] Last Admin: 07/04/18 08:28 Dose: 81 mg Dextrose (D50w Syringe 50 Ml*) 12.5 gm IV PUSH .FOR FS < 60 - SS PRN PRN Reason: FS < 60 Escitalopram Oxalate (Lexapro *) 20 mg PO DAILY [facility] Last Admin: 07/04/18 08:28 Dose: 20 mg Fluticasone Propionate (Flonase Nasal [place] 50mcg*) 2 spray BOTH NARES DAILY [facility] Last Admin: 07/04/18 08:28 Dose: 2 spray Folic Acid (Folvite Tab*) 1 mg PO DAILY [facility] Last Admin: 07/04/18 08:28 Dose: 1 mg Hydralazine HCl (Apresoline Tab*) 50 mg PO TID [facility] Last Admin: 07/04/18 08:28 Dose: 50 mg Hydroxychloroquine Sulfate (Plaquenil Tab*) 200 mg PO BID [facility] Last Admin: 07/04/18 08:29 Dose: 200 mg Hydroxyzine HCl (Atarax Tab*) 25 mg PO Q6H PRN PRN Reason: ANXIETY Insulin Glargine (Lantus(*)) 65 units SUBCUT BEDTIME [facility] Last Admin: 07/03/18 21:38 Dose: 65 units Insulin Human Lispro (Humalog*) 0 units SUBCUT ACHS [facility]; Protocol Last Admin: 07/04/18 12:09 Dose: 9 units Insulin Human Lispro (Humalog*) 10 units SUBCUT ACHS [facility] Last Admin: 07/04/18 12:09 Dose: 10 units Magnesium Oxide (Magox 400 Tab*) 400 mg PO BID [facility] Last Admin: 07/04/18 08:29 Dose: 400 mg Metformin HCl (Glucophage*) 1,000 mg PO BID [facility] Last Admin: 07/04/18 08:29 Dose: 1,000 mg Metolazone (Zaroxolyn Tab*) 2.5 mg PO DAILY [facility] Last Admin: 07/04/18 08:29 Dose: 2.5 mg Metoprolol Tartrate (Lopressor Tab*) 50 mg PO BID [facility] Last Admin: 07/04/18 08:29 Dose: 50 mg Mometasone Furoate (Asmanex 220 Mcg Mdi *) 2 puff INH QPM [facility] Last Admin: 07/03/18 19:56 Dose: 2 puff Morphine Sulfate (Morphine 4 Mg/Ml Vial (1 Ml)) 4 mg IV Q4H PRN PRN Reason: PAIN Last Admin: 07/02/18 20:23 Dose: 4 mg Morphine Sulfate (Ms Contin(*)) 30 mg PO TID PRN PRN Reason: PAIN Last Admin: 07/04/18 11:02 Dose: 30 mg Oxycodone HCl (Roxycodone Tab*) 5 mg PO QID PRN PRN Reason: PAIN Last Admin: 07/03/18 17:27 Dose: 5 mg Polyethylene Glycol/Electrolytes (Miralax*) 17 gm PO DAILY [facility] Last Admin: 07/04/18 08:29 Dose: 17 gm Prednisone (Deltasone Tab*) 30 mg PO DAILY [facility] Last Admin: 07/04/18 08:30 Dose: 30 mg Pregabalin (Lyrica Cap(*)) 75 mg PO TID PRN PRN Reason: PAIN Last Admin: 07/04/18 11:02 Dose: 75 mg Spironolactone (Aldactone Tab*) 50 mg PO DAILY [facility] Last Admin: 07/04/18 08:30 Dose: 50 mg Torsemide (Torsemide) 40 mg PO BID [facility] Last Admin: 07/04/18 08:30 Dose: 40 mg Warfarin Sodium (Coumadin Tab(*)) 3.75 mg PO DAILY@1700 PANDA; Protocol SOCIAL HISTORY: No longer smokes, no longer drinks, but was a heavy alcohol user in the past, lives with roomates in 1 story house ROS: No current SOB, on O2. Vital Signs Temp Pulse Resp BP Pulse Ox 97.8 F 72 17 118/79 100 07/04/18 11:18 07/04/18 11:18 07/04/18 13:13 07/04/18 11:18 07/04/18 11:18 EXAM: LUNGS: Clear HEART: Irreg rhythm ABDOMEN: Soft EXTREMITIES: Normal tone, hands stiff NEUROLOGIC: A&O, moves all 4 extremities ASSESSMENT: 1. Seronegative RA 2. DPN PLAN: His pain is back to baseline, he can go home on MS Contin, 30 mg Q8, and Lyrica 75 TID, and Oxycodone 5 mg Q 4 PRN. He has a follow up in the Pain Clinic with Rosa Maria Huerta NP on SundayJuly 08 at 1:40 pm. Thank you.
[2018-07-04] MEDS ORDERED: Warfarin TAB(*) 7.5 MG PO SCH (17:00)
== END 2018-07-04 14:45 | DRG 346 ==
LOC: ED 19:56 → MED 06-29 00:22
PROVIDERS: ADMIT Internal Medicine; ATTEND Internal Medicine
PROC: 3E0U33Z Introduction of Anti-inflammatory into Joints, Percutaneous Approach (ICD-10-PCS; principal; 2018-07-02)
PROC: 3E0U3BZ Introduction of Anesthetic Agent into Joints, Percutaneous Approach (ICD-10-PCS; 2018-07-02)
PROC: 3E0U33Z Introduction of Anti-inflammatory into Joints, Percutaneous Approach (ICD-10-PCS; 2018-07-03)
PROC: 3E0U3BZ Introduction of Anesthetic Agent into Joints, Percutaneous Approach (ICD-10-PCS; 2018-07-03)
DX: M06.00 Rheumatoid arthritis without rheumatoid factor, unspecified site (principal); J96.10 Chronic respiratory failure, unspecified whether with hypoxia or hypercapnia; I50.32 Chronic diastolic (congestive) heart failure; I42.9 Cardiomyopathy, unspecified; I13.0 Hypertensive heart and chronic kidney disease with heart failure and stage 1 through stage 4 chronic kidney disease, or unspecified chronic kidney disease; Z68.42 Body mass index [BMI] 45.0-49.9, adult; E11.22 Type 2 diabetes mellitus with diabetic chronic kidney disease; Z99.81 Dependence on supplemental oxygen; E66.01 Morbid (severe) obesity due to excess calories; I48.2 Chronic atrial fibrillation; N18.3 Chronic kidney disease, stage 3 (moderate); G47.33 Obstructive sleep apnea (adult) (pediatric); M75.52 Bursitis of left shoulder; M65.9 Synovitis and tenosynovitis, unspecified; J44.9 Chronic obstructive pulmonary disease, unspecified; F32.9 Major depressive disorder, single episode, unspecified; R33.9 Retention of urine, unspecified; G89.29 Other chronic pain; F41.9 Anxiety disorder, unspecified; E87.6 Hypokalemia; R80.9 Proteinuria, unspecified; M16.10 Unilateral primary osteoarthritis, unspecified hip; L53.9 Erythematous condition, unspecified; F10.11 Alcohol abuse, in remission; R79.1 Abnormal coagulation profile; M25.512 Pain in left shoulder; M25.551 Pain in right hip; Z79.01 Long term (current) use of anticoagulants; Z79.84 Long term (current) use of oral hypoglycemic drugs; Z79.1 Long term (current) use of non-steroidal anti-inflammatories (NSAID); Z79.82 Long term (current) use of aspirin; Z79.891 Long term (current) use of opiate analgesic; Z79.51 Long term (current) use of inhaled steroids; Z79.899 Other long term (current) drug therapy; Z88.8 Allergy status to other drugs, medicaments and biological substances; Z82.49 Family history of ischemic heart disease and other diseases of the circulatory system; Z87.891 Personal history of nicotine dependence; Z79.4 Long term (current) use of insulin; Z82.61 Family history of arthritis
CPT/HCPCS: 36415; 71046; 80048; 80053; 81003; 81015; 82550; 82947; 83516; 83880; 85025; 85610; 85652; 86038; 86140; 86255; 86644; 86645; 86812; 87086; 93005; 94640; 94660; 99284; A9270-GY; J0690; J2270; J2930; J3301; J7512

== ENCOUNTER 2018-12-14 10:33 | Inpatient (IN) | payer OTHER ==
[2018-12-14] MEDS ORDERED: methylPREDNISolone 125 MG* 2 ML VIAL IV ONE (10:34)
[2018-12-14] MEDS ORDERED: NS 0.9% 1000 ML** 1,000 ML IV ONE (10:34)
[2018-12-14] MEDS ORDERED: Benzoin Compound STICK ONE (10:38)
[2018-12-14] MEDS ORDERED: Albuterol/Ipratropium NEB.SOL* Albuterol 2.5 MG/Ipratropium 0.5 MG 3 ML INH ONE (10:42)
[2018-12-14] MEDS ORDERED: Albuterol/Ipratropium NEB.SOL* Albuterol 2.5 MG/Ipratropium 0.5 MG 3 ML ONE (10:44)
--- NOTE | 2018-12-14 10:48 | ED ---
Shortness of Breath - HPI Summary HPI Summary: 58 year old male presents to [facility] by EMS for shortness of breath that began weeks ago but has increased in severity over today. Per EMS, the patient has associated intermittent chest pains over the last few days, but no chest pain upon arrival. He rates the pain 4/10 in severity. EMS also reports minor wheezing and profuse diaphoresis. The patient has COPD but no CHF. 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 Patient states that he is agreeable with intubation if needed. - History of Current Complaint Time Seen by Provider: 12/14/18 10:34 Hx Obtained From: Patient, EMS Onset/Duration: Lasting Weeks, Still Present, Worse Since - today Timing: Constant Current Severity: Severe Dyspnea At: Rest Alleviating Factors: Oxygen, Upright Position Associated Signs & Symptoms: Wheezing, Diaphoresis Related History: Obesity - Allergy/Home Medications Allergies/Adverse Reactions: Allergies Allergy/AdvReac Type Severity Reaction Status Date / Time tiotropium Allergy lightheaded Verified 08/16/18 11:26 [From Spiriva with ness HandiHaler] Home Medications: Home Medications Atorvastatin* [Lipitor*] 40 mg PO 1700 12/14/18 [History Confirmed 12/14/18] Sarilumab [Kevzara] 1 12/14/18 [History] Umeclidinium [place] [Incruse Ellipta] 1 puff INH DAILY 12/14/18 [History Confirmed 12/14/18] Warfarin TAB(*) [Coumadin TAB(*)] 0.5 tab PO SEE INSTRUCTIONS 12/14/18 [History Confirmed 12/14/18] PMH/Surg Hx/FS Hx/Imm Hx Endocrine/Hematology History: Reports: Hx Anticoagulant Therapy, Hx Diabetes Denies: Hx Anemia, Hx Unexplained Bleeding Cardiovascular History: Reports: Hx Cardiomegaly - dilated cardiomyopathy, Hx Congestive Heart Failure - Currently, Hx Hypercholesterolemia, Hx Hypertension, Hx Peripheral Vascular Disease, Other Cardiovascular Problems/Disorders - HX PERICARDIAL EFFUSION Denies: Hx Aneurysm, Hx Angina, Hx Angioplasty, Hx Auto Implanted Cardiovert Defib, Hx Cardiac Arrest, Hx Congenital Heart Disease, Hx Coronary Artery Disease, Hx Deep Vein Thrombosis, Hx Embolism, Hx Hypotension, Hx Pacemaker/ICD , Hx Rheumatic Fever, Hx Syncope, Hx Valvular Heart Disease Respiratory History: Reports: Hx Asthma, Hx Chronic Obstructive Pulmonary Disease (COPD), Hx Pneumonia, Hx Sleep Apnea - CPAP, 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 Denies: Hx Chronic Bronchitis, Hx Cystic Fibrosis, Hx Lung Cancer, Hx Pleural Effusion, Hx Pulmonary Edema, Hx Pulmonary Embolism, Hx Seasonal Allergies GI History: Reports: Other GI Disorders - hx fatty liver History: Reports: Hx Acute Renal Failure, Other Problems/Disorders - hx Proteinuria, problems with erection Denies: Hx Benign Prostatic Hyperplasia, Hx Chronic Renal Failure, Hx Dialysis, Hx Kidney Infection, Hx Kidney Stones Musculoskeletal History: Reports: Hx Arthritis, Hx Orthopedic Injury Denies: Hx Back Problems, Hx Bursitis, Hx Congenital Bone Abnormalities, Hx Fibromyalgia, Hx Gout, Hx Osteoporosis, Hx Scoliosis, Hx Tendonitis Sensory History: Reports: Hx Contacts or Glasses, Hx Vision Problem Denies: Hx Cataracts, Hx Eye Injury, Hx Eye Prosthesis, Hx Glaucoma, Hx Legally Blind, Hx Macular Degeneration, Hx Deafness, Hx Hearing Aid, Hx Hearing Problem, Other Sensory Impairments Opthamlomology History: Reports: Hx Contacts or Glasses, Hx Vision Problem Denies: Hx Cataracts, Hx Eye Injury, Hx Eye Prosthesis, Hx Glaucoma, Hx Legally Blind, Hx Macular Degeneration, Other Sensory Impairments Psychiatric History: Reports: Hx Anxiety, Hx Depression Denies: Hx Attention Deficit Hyperactivity Disorder, Hx Eating Disorder, Hx Panic Disorder, Hx Post Traumatic Stress Disorder, Hx Inpatient Treatment, Hx Community Mental Health Tx, Hx Schizophrenia, Hx Bipolar Disorder, Hx Suicide Attempt, Hx of Violent Episodes Against Others, Hx Substance Abuse, Other Psychiatric Issues/Disorders - Cancer History Hx Chemotherapy: No Hx Radiation Therapy: No Hx Palliative Cancer Treatment: No - Surgical History Surgery Procedure, Year, and Place: L ankle surg w/screws Hx Anesthesia Reactions: No Infectious Disease History: Denies: Hx Clostridium Difficile, Hx Hepatitis, Hx Human Immunodeficiency Virus (HIV), Hx of Known/Suspected MRSA, Hx Shingles, Hx Tuberculosis, Hx Known/ Suspected VRE, Hx Known/Suspected VRSA, History Other Infectious Disease - Family History Known Family History: Positive: Cardiac Disease, Diabetes - Social History Alcohol Use: None Alcohol Amount: 4-5 drinks per week Substance Use Type: Reports: None Substance Use Comment - Amount & Last Used: very infrequently Smoking Status (MU): Former Smoker Type: Cigarettes Amount Used/How Often: 2-3 cigarettes per day Length of Time of Smoking/Using Tobacco: 28 Have You Smoked in the Last Year: Yes Review of Systems Positive: Skin Diaphoresis Positive: Chest Pain - intermittent over the last few days, but not present today. Positive: Shortness Of Breath All Other Systems Reviewed And Are Negative: Yes Physical Exam - Summary Physical Exam Summary: VITAL SIGNS: Reviewed. GENERAL: Patient is a well-developed and morbidly obese male who is in tripod position. Patient is in severe respiratory distress, unable to speak in full sentences. HEAD AND FACE: No signs of trauma. No ecchymosis, hematomas or skull depressions. No sinus tenderness. EYES: PERRLA, EOMI x 2, No injected conjunctiva, no nystagmus. EARS: Hearing grossly intact. Ear canals and tympanic membranes are within normal limits. MOUTH: Oropharynx within normal limits. NECK: Supple, trachea is midline, no adenopathy, no JVD, no carotid bruit, no c- spine tenderness, neck with full ROM. CHEST: Symmetric, no tenderness at palpation. LUNGS: Decreased breath sounds bilaterally. Slight wheezing in apexes of lung. CVS: Irregular rate and rhythm, S1 and S2 present, no murmurs or gallops appreciated. ABDOMEN: Soft, non-tender. No signs of distention. No rebound, no guarding, and no masses palpated. Bowel sounds are decreased. EXTREMITIES: FROM in all major joints. BLE Edema. Pulse 2+. No cyanosis or clubbing. NEURO: Alert and oriented x 3. No acute neurological deficits. Speech is normal and follows commands. SKIN: Extremely diaphoretic. Warm. Triage Information Reviewed: Yes Vital Signs Reviewed: Yes Diagnostics - Laboratory Result Diagrams: 12/15/18 05:33 12/15/18 05:33 Lab Statement: Any lab studies that have been ordered have been reviewed, and results considered in the medical decision making process. - Radiology CXR Radiology Interpretation Completed By: Radiologist Summary of Radiographic Findings: CXR shows the following impressions: 1. CARDIOMEGALY. 2. PULMONARY INTERSTITIAL EDEMA. 3. SMALL BILATERAL PLEURAL EFFUSIONS. 4. THERE IS PATCHY AIRSPACE DISEASE OF THE LUNGS BILATERALLY WHICH MAY REFLECT SUPERIMPOSED PNEUMONIC CONSOLIDATION OR PULMONARY ALVEOLAR EDEMA. An ED physician has reviewed this report. - EKG 1053 Cardiac Rate: Other Rate - 75 bpm afib EKG Rhythm: Atrial Fibrillation Summary of EKG Findings: EKG at 1053 shows afib at 75 bpm. This EKG has been reviewed by an ED physician. Course/Dx - Course Assessment/Plan: Patient is a 58-year-old male who presents to the emergency room via ambulance with the chief complaint of acute respiratory distress. On arrival the patient is unable to speak in full sentences, he is diaphoretic and with acute respiratory distress. Immediately the patient was placed in a night monitor, I placed the patient on the vapotherm, chest x-ray was ordered , blood work was ordered. The patient also was given DuoNebs since the patient has a history of CHF exacerbation. Blood test results shows wbcs of 14.4, hemoglobin 11.7 hematocrit 36 and platelets 251. Absolute neutrophils 11.8 positive left shift. CMP within normal limits except for glucose of 306, hemoglobin 9, lactic acid is 3.1, BNP is 270 and the CRP is 39.8. ABG pH of 7.3, PCO2 53, PO2 65 and O2 sat is 93 on the Vapotherm. After the patient received the Vapotherm for couple minutes the o2 sat was 97-98%. Chest x-ray impression: Cardiomegaly, pulmonary interstitial edema, small bilateral pleural effusions. THERE IS PATCHY AIRSPACE DISEASE OF THE LUNGS BILATERALLY WHICH MAY REFLECT SUPERIMPOSED PNEUMONIC CONSOLIDATION OR PULMONARY ALVEOLAR EDEMA. Since the patient has an increased wbcs and CRP I gave 1 dose of Zosyn. At this time I discussed my physical exam and findings with Dr. Webb who came and assessed the patient and he accepted the patient to the ICU. - Diagnoses Provider Diagnoses: Pulmonary edema, COPD (chronic obstructive pulmonary disease), NEAL ( obstructive sleep apnea), Diastolic heart failure - Physician Notifications Discussed Care of Patient With: El Webb - Talked to Dr. Jon MD, at 1214. He agreed to admit pt to the ICU. Time Discussed With Above Provider: 12:14 Instructed by Provider To: Admit As Inpatient Admit/Transition Orders Completed By ED Provider: Yes Discharge ED - Sign-Out/Discharge Documenting (check all that apply): Patient Departure - admit All imaging exams completed and their final reports reviewed: Yes Patient Received Moderate/Deep Sedation with Procedure: No - Discharge Plan Condition: Fair Disposition: ADMITTED TO [facility] - Billing Disposition and Condition Condition: FAIR Disposition: Admitted to [facility] - Attestation Statements Document Initiated by Scribe: Yes Documenting Scribe: Thom Cotto Provider For Whom Fly is Documenting (Include Credential): Dr. Marcus Krause MD. Scribe Attestation: I, Thom Cotto, charoed for Dr. Marcus Krause MD. on 12/16/18 at 1106. Scribe Documentation Reviewed: Yes Provider Attestation: The documentation as recorded by the Thom louise accurately reflects the service I personally performed and the decisions made by me, Dr. Marcus Krause MD. Status of Scribe Document: Viewed
[2018-12-14 11:04] LABS: ABS Eosinophils 0.3 10^3/ul (0-0.6); ABS Lymphocytes 0.9 10^3/ul (1.0-4.8); ABS Monocytes 1.4 10^3/ul (0-0.8); ABS Neutrophils 11.8 10^3/ul (1.5-7.7); Eosinophil % 2.1 %; Hematocrit 36 % (42-52); Hemoglobin 11.7 g/dL (14.0-18.0); Mean Corpuscular HGB Conc 32 g/dL (31-36); Mean Corpuscular Hemoglobin 32 pg (27-31); Mean Corpuscular Volume 101 fL (80-94); Mean Platelet Volume 8.4 fL (7.4-10.4); Platelet Count 251 10^3/uL (150-450); Red Cell Distribution Width 18 % (10-15); White Blood Count 14.4 10^3/uL (3.5-10.8)
[2018-12-14 11:18] LABS: Albumin 4.2 g/dL (3.2-5.2); Albumin/Globulin Ratio 1.4 (1-3); BUN/Creatinine Ratio 17.6 (8-20); C Reactive Protein 39.82 mg/L (<8.01); Calcium 9.5 mg/dL (8.6-10.3); EGFR African American 90.8 (>60); Globulin 3.1 g/dL (2-4); Potassium 4.4 mmol/L (3.5-5.0); Total Bilirubin 2.6 mg/dL (0.2-1.0); Total Protein 7.3 g/dL (6.4-8.9)
[2018-12-14] MEDS ORDERED: Furosemide IV* 10 MG/ML VIAL (40 MG) IV ONE (11:18)
[2018-12-14] MEDS ORDERED: Piperacillin/Tazobac ADVAN(*) 3.375 GM in NS 0.9% 100 ML* 100 ML IVPB ONE (11:20)
[2018-12-14 11:22] LABS: Troponin I 0.01 ng/mL (<0.04)
[2018-12-14 11:24] LABS: CKMB ng/mL 1.5 ng/mL (0.6-6.3)
[2018-12-14 13:52] LABS: Urine Appearance Clear; Urine Bacteria Absent (Absent); Urine Bilirubin Negative (Negative); Urine Blood 1+ (Negative); Urine Color Yellow; Urine Glucose 2+(150 mg/dL) (Negative); Urine Ketones Negative (Negative); Urine Nitrite Negative (Negative); Urine Protein 2+(100 mg/dL) (Negative); Urine Red Blood Cell Trace(0-2/hpf) (Absent); Urine Urobilinogen Negative (Negative); Urine White Blood Cell Trace(0-5/hpf) (Absent)
[2018-12-14] MEDS ORDERED: Albuterol/Ipratropium NEB.SOL* Albuterol 2.5 MG/Ipratropium 0.5 MG 3 ML INH SCH ×2 (15:00)
[2018-12-14] MEDS ORDERED: Insulin GLARGINE(*) 1 UNITS UNIT SUBCUT SCH (15:00)
[2018-12-14] MEDS ORDERED: Insulin REGULAR(*) 1 UNITS UNIT IV PUSH ONE (15:02)
[2018-12-14] MEDS: Pregabalin CAP(*) 25 MG PO PRN ×2 (15:26→22:04)
--- NOTE | 2018-12-14 15:53 | HP ---
ADMISSION HISTORY AND PHYSICAL: DATE OF ADMISSION: 12/14/18 REASON FOR ADMISSION: Heart failure with acute hypoxemic respiratory failure. HISTORY OF PRESENT ILLNESS: This patient is a 58-year-old white male with morbid obesity and multiple other medical problems, who presented to the emergency room with a 2- to 3-week history of increasing shortness or breath and was found to have severe hypoxemia requiring high-flow humidified nasal O2 ( Vapotherm) and a chest x- ray that showed infiltrates in both lungs consistent with hydrostatic pulmonary edema plus/minus pneumonia. The patient denies fever , chills, productive cough, chest pain, or other symptoms suggestive of infection. EKG in the emergency department showed no evidence of myocardial ischemia. PAST MEDICAL HISTORY: The patient has a history of several conditions including advanced rheumatoid arthritis (for which he has received methotrexate , and receives opioids for severe joint pains), chronic atrial fibrillation, cardiomyopathy, hypertension, insulin- dependent diabetes, sleep apnea, chronic respiratory failure requiring home O2, and chronic kidney disease - stage 3. MEDICATIONS: 1. Lipitor 40 mg daily. 2. Lexapro 10 mg daily. 3. Umeclidinium bromide 1 puff daily. 4. Hydralazine 50 mg 3 times a day. 5. Glimepiride 4 mg twice a day. 6. Folic acid 1 mg a day. 7. Flonase 2 sprays both nares daily. 8. Fluticasone 2 puffs inhaled twice daily. 9. Combivent 2 puffs inhaled 4 times daily. 10. Spironolactone 50 mg daily. 11. Lyrica 75 mg 3 times daily. 12. Oxycodone 5 mg p.o. b.i.d. p.r.n. pain. 13. Morphine sulfate (MS Contin) 30 mg p.o. t.i.d. p.r.n. pain. 14. Metoprolol 50 mg twice daily. 15. Zaroxolyn 2.5 mg daily. 16. Warfarin 7.5 mg twice a week and half of that dose the remaining days of the week. 17. Torsemide 40 mg twice a day. 18. Metformin 1000 mg twice a day. 19. Amlodipine 10 mg daily. 20. Glargine insulin 50 units at bedtime. DRUG ALLERGIES: TIOTROPIUM, which causes lightheadedness. FAMILY HISTORY: The patient's mother has coronary artery disease. Otherwise, negative for cardiopulmonary disease. SOCIAL HISTORY: The patient lives alone, has a prior history of smoking, but none in the last few months. Denies recent alcohol ingestion, and no history of illicit drugs. REVIEW OF SYSTEMS: Noncontributory. PHYSICAL EXAMINATION GENERAL: The patient alert and resting in bed. VS: T=98, P = 110 and irregular, R=28, BP = SpO2 = 100% on high-flow nasal O2 ( 40 L/min) HEENT: Pupils mid position and reactive. No facial asymmetry. No stridor noted and oropharynx was clear. CHEST: Breath sounds were very distant, but there are crackles heard at the right base. CARDIAC: There were no other murmurs or rubs. ABDOMEN: Obese but not distended. EXTREMITIES: Not cyanotic. There was 1 to 2+ edema and left leg was larger than the right leg. NEUROLOGIC: There are no focal findings. DIAGNOSTIC STUDIES/LAB DATA: Admission laboratory data: Admission labs were significant for a white count of 14.4, lactic acid of 3.1, glucose of 306, C- reactive protein of 39.8, a beta-natriuretic peptide of 270, and a bilirubin of 2.60. PTT was 38.5, INR is pending. Chest x-ray was as described. EKG as described. IMPRESSION: Overall picture is most consistent with congestive heart failure, although I cannot rule out a pneumonia at this time. The difference in size of both legs raises suspicion for a deep vein thrombosis, although the CXR appearance is not typical for an acute pulmonary embolism (and the patient is on coumadin). The patient appears comfortable at this time on high-flow nasal O2. MANAGEMENT PLAN: 1. Aggressive diuresis. 2. Cefepime for empiric treatment of community-acquired pneumonia. Check pneumococcal and Legionella urinary antigens, and culture blood. 3. Ultrasound left leg for DVT. CRITICAL CARE TIME: 70 minutes (including time to review prior admissions to this hospital). [id number]/[id number] #: [id number] MTDD
[2018-12-14] MEDS: Albuterol/Ipratropium NEB.SOL* Albuterol 2.5 MG/Ipratropium 0.5 MG 3 ML INH SCH ×2 (16:53→20:03)
[2018-12-14] MEDS: Atorvastatin* 40 MG TAB PO SCH (17:30)
[2018-12-14] MEDS: Morphine TAB Extended Release (*) 30 MG TAB.ER PO PRN ×2 (17:30→22:04)
[2018-12-14] MEDS: metFORMIN* 500 MG TAB PO SCH (17:30)
[2018-12-14] MEDS: Insulin LISPRO* 1 UNITS UNIT SUBCUT SCH ×2 (17:55→23:00)
[2018-12-14] MEDS: Mometasone 220 MCG MDI INH SCH (20:03)
[2018-12-14] MEDS: Cefepime 1 GM in Dextrose(*) 1 GM/50 ML BAG IV SCH (21:50)
[2018-12-14] MEDS: Torsemide TAB* 20 MG PO SCH (22:04)
[2018-12-14] MEDS: Metoprolol Tartrate TAB* 50 mg PO SCH (22:04)
[2018-12-14 22:58] LABS: BUN/Creatinine Ratio 20.6 (8-20); Calcium 9.1 mg/dL (8.6-10.3); EGFR African American 85.9 (>60); Potassium 4.7 mmol/L (3.5-5.0)
[2018-12-14 23:33] LABS: Urine Bacteria Absent (Absent); Urine Granular Casts Present (Absent); Urine Red Blood Cell 3+(>10/hpf) (Absent); Urine Squamous Epithelial Cell Present (Absent); Urine White Blood Cell 2+(11-20/hpf) (Absent)
[2018-12-14 23:38] LABS: Urine Appearance Clear; Urine Bilirubin Negative (Negative); Urine Blood 3+ (Negative); Urine Color Yellow; Urine Glucose 3+(>=500 mg/dL) (Negative); Urine Ketones Trace (Negative); Urine Nitrite Negative (Negative); Urine Protein 2+(100 mg/dL) (Negative); Urine Urobilinogen Negative (Negative)
[2018-12-15] MEDS: Cefepime 1 GM in Dextrose(*) 1 GM/50 ML BAG IV SCH (05:38)
[2018-12-15 05:57] LABS: Hematocrit 31 % (42-52); Hemoglobin 10.1 g/dL (14.0-18.0); Mean Corpuscular HGB Conc 33 g/dL (31-36); Mean Corpuscular Hemoglobin 33 pg (27-31); Mean Corpuscular Volume 99 fL (80-94); Mean Platelet Volume 8.8 fL (7.4-10.4); Platelet Count 169 10^3/uL (150-450); Red Blood Count 3.08 10^6 /uL (4.18-5.48); Red Cell Distribution Width 18 % (10-15); White Blood Count 9.7 10^3/uL (3.5-10.8)
[2018-12-15 06:11] LABS: Albumin 3.6 g/dL (3.2-5.2); Albumin/Globulin Ratio 1.2 (1-3); BUN/Creatinine Ratio 22.1 (8-20); Calcium 8.9 mg/dL (8.6-10.3); EGFR African American 80.6 (>60); EGFR Non-African American 66.7 (>60); Globulin 2.9 g/dL (2-4); Potassium 4.3 mmol/L (3.5-5.0); Total Bilirubin 2.1 mg/dL (0.2-1.0); Total Protein 6.5 g/dL (6.4-8.9)
[2018-12-15] MEDS: Metolazone TAB* 5 MG PO SCH (07:48)
[2018-12-15] MEDS: Torsemide TAB* 20 MG PO SCH ×2 (07:49→22:24)
[2018-12-15] MEDS: Pregabalin CAP(*) 25 MG PO PRN (07:49)
[2018-12-15] MEDS: metFORMIN* 500 MG TAB PO SCH ×2 (07:49→16:40)
[2018-12-15] MEDS: Escitalopram * 10 MG TAB PO SCH (07:49)
[2018-12-15] MEDS: amLODIPine TAB* 5 MG PO SCH (07:50)
[2018-12-15] MEDS: Spironolactone TAB* 25 MG PO SCH (07:50)
[2018-12-15] MEDS: Albuterol/Ipratropium NEB.SOL* Albuterol 2.5 MG/Ipratropium 0.5 MG 3 ML INH SCH ×3 (08:27→19:28)
[2018-12-15] MEDS: Insulin LISPRO* 1 UNITS UNIT SUBCUT SCH ×4 (08:51→22:26)
[2018-12-15] MEDS ORDERED: Furosemide IV* 10 MG/ML VIAL (40 MG) IV ONE (09:00)
[2018-12-15] MEDS: Metoprolol Tartrate TAB* 50 mg PO SCH ×2 (09:22→22:25)
--- NOTE | 2018-12-15 10:59 | PN ---
Date of Service: 12/15/18 Critical Care Services: Doing much better this AM - diuresed 3.5 liters after the IV furosemide (40 mg) and CXR this AM looks much better. No evidence of leg DVT by ultrasound. Vital Signs: Temp Pulse Resp BP SpO2 FiO2 98.8 F 80 8 127/58 93 50 Physical Exam: Gen: Alert, oriented, breathing comfortably Lungs: BS distant. No crackles or wheezes Cardiac: No murmurs Abdomen: Obese but not distended Extremities: No cyanosis. Left leg larger than right. Fluid Balance (Past 24 Hours): 12/15/18 06:59 Intake Total 431 Output Total 4050 Balance -3619 Weight 337 lb 1.388 oz Intake: IV Fluids 191 NS (0.9%) 191 Oral 240 Output: Urine 200 Andre 3850 Labs: Laboratory Results - last 24 hr 12/14/18 12/14/18 12/14/18 10:45 10:47 10:47 WBC 14.4 H RBC 3.60 L Hgb 11.7 L Hct 36 L MCV 101 H MCH 32 H MCHC 32 RDW 18 H Plt Count 251 MPV 8.4 Neut % (Auto) 81.8 Lymph % (Auto) 6.0 [place] % (Auto) 9.8 Eos % (Auto) 2.1 Baso % (Auto) 0.3 Absolute Neuts (auto) 11.8 H Absolute Lymphs (auto) 0.9 L Absolute Monos (auto) 1.4 H Absolute Eos (auto) 0.3 Absolute Basos (auto) 0.0 Absolute Nucleated RBC 0.0 Nucleated RBC % 0.0 APTT 38.5 H Patient Temperature Not Reportable ABG pH 7.30 L ABG pH (Temp Correct) Not Reportable ABG pCO2 53 H ABG pCO2 (Temp Corrct Not Reportable ABG pO2 65 L ABG pO2 (Temp Correct Not Reportable ABG HCO3 23.9 ABG O2 Saturation 93.2 L ABG Base Excess -1.1 Respiration Rate Not Reportable O2 Delivery Device Vapo 40l Ventilator Type Not Reportable Vent Mode Not Reportable FiO2 100 Inspiratory Time Not Reportable PEEP Not Reportable Pressure Support Not Reportable Pressure Control Not Reportable EPAP Not Reportable IPAP Not Reportable BiPAP Not Reportable Sodium Potassium Chloride Carbon Dioxide Anion Gap BUN Creatinine Est GFR ( Amer) Est GFR (Non-Af Amer) BUN/Creatinine Ratio Glucose POC Glucose (mg/dL) Hemoglobin A1c Lactic Acid Calcium Total Bilirubin AST ALT Alkaline Phosphatase Total Creatine Kinase CK-MB (CK-2) Troponin I C-Reactive Protein B-Natriuretic Peptide Total Protein Albumin Globulin Albumin/Globulin Ratio Urine Color Urine Appearance Urine pH Ur Specific [place] Urine Protein Urine Ketones Urine Blood Urine Nitrate Urine Bilirubin Urine Urobilinogen Ur Leukocyte Esterase Urine WBC (Auto) Urine RBC (Auto) Ur Squamous Epith Cells Urine Bacteria Granular Casts Urine Glucose Urine Ascorbic Acid 12/14/18 12/14/18 12/14/18 10:47 10:47 10:47 WBC RBC Hgb Hct MCV MCH MCHC RDW Plt Count MPV Neut % (Auto) Lymph % (Auto) [place] % (Auto) Eos % (Auto) Baso % (Auto) Absolute Neuts (auto) Absolute Lymphs (auto) Absolute Monos (auto) Absolute Eos (auto) Absolute Basos (auto) Absolute Nucleated RBC Nucleated RBC % APTT Patient Temperature ABG pH ABG pH (Temp Correct) ABG pCO2 ABG pCO2 (Temp Corrct ABG pO2 ABG pO2 (Temp Correct ABG HCO3 ABG O2 Saturation ABG Base Excess Respiration Rate O2 Delivery Device Ventilator Type Vent Mode FiO2 Inspiratory Time PEEP Pressure Support Pressure Control EPAP IPAP BiPAP Sodium 139 Potassium 4.4 Chloride 102 Carbon Dioxide 29 Anion Gap 8 BUN 18 Creatinine 1.02 Est GFR ( Amer) 90.8 Est GFR (Non-Af Amer) 75.0 BUN/Creatinine Ratio 17.6 Glucose 306 H POC Glucose (mg/dL) Hemoglobin A1c Lactic Acid 3.1 H* Calcium 9.5 Total Bilirubin 2.60 H AST 18 ALT 23 Alkaline Phosphatase 80 Total Creatine Kinase 28 CK-MB (CK-2) 1.5 Troponin I 0.01 C-Reactive Protein 39.82 H B-Natriuretic Peptide 270 H Total Protein 7.3 Albumin 4.2 Globulin 3.1 Albumin/Globulin Ratio 1.4 Urine Color Urine Appearance Urine pH Ur Specific [place] Urine Protein Urine Ketones Urine Blood Urine Nitrate Urine Bilirubin Urine Urobilinogen Ur Leukocyte Esterase Urine WBC (Auto) Urine RBC (Auto) Ur Squamous Epith Cells Urine Bacteria Granular Casts Urine Glucose Urine Ascorbic Acid 12/14/18 12/14/18 12/14/18 10:47 13:15 17:00 WBC RBC Hgb Hct MCV MCH MCHC RDW Plt Count MPV Neut % (Auto) Lymph % (Auto) [place] % (Auto) Eos % (Auto) Baso % (Auto) Absolute Neuts (auto) Absolute Lymphs (auto) Absolute Monos (auto) Absolute Eos (auto) Absolute Basos (auto) Absolute Nucleated RBC Nucleated RBC % APTT Patient Temperature ABG pH ABG pH (Temp Correct) ABG pCO2 ABG pCO2 (Temp Corrct ABG pO2 ABG pO2 (Temp Correct ABG HCO3 ABG O2 Saturation ABG Base Excess Respiration Rate O2 Delivery Device Ventilator Type Vent Mode FiO2 Inspiratory Time PEEP Pressure Support Pressure Control EPAP IPAP BiPAP Sodium Potassium Chloride Carbon Dioxide Anion Gap BUN Creatinine Est GFR ( Amer) Est GFR (Non-Af Amer) BUN/Creatinine Ratio Glucose POC Glucose (mg/dL) 339 H Hemoglobin A1c 9.0 H Lactic Acid Calcium Total Bilirubin AST ALT Alkaline Phosphatase Total Creatine Kinase CK-MB (CK-2) Troponin I C-Reactive Protein B-Natriuretic Peptide Total Protein Albumin Globulin Albumin/Globulin Ratio Urine Color Yellow Urine Appearance Clear Urine pH 5.0 Ur Specific [place] 1.010 Urine Protein 2+(100 mg/dl) A Urine Ketones Negative Urine Blood 1+ A Urine Nitrate Negative Urine Bilirubin Negative Urine Urobilinogen Negative Ur Leukocyte Esterase Negative Urine WBC (Auto) Trace(0-5/hpf) Urine RBC (Auto) Trace(0-2/hpf) Ur Squamous Epith Cells Urine Bacteria Absent Granular Casts Urine Glucose 2+(150 mg/dl) A Urine Ascorbic Acid 12/14/18 12/14/18 12/14/18 22:16 22:18 22:18 WBC RBC Hgb Hct MCV MCH MCHC RDW Plt Count MPV Neut % (Auto) Lymph % (Auto) [place] % (Auto) Eos % (Auto) Baso % (Auto) Absolute Neuts (auto) Absolute Lymphs (auto) Absolute Monos (auto) Absolute Eos (auto) Absolute Basos (auto) Absolute Nucleated RBC Nucleated RBC % APTT Patient Temperature ABG pH ABG pH (Temp Correct) ABG pCO2 ABG pCO2 (Temp Corrct ABG pO2 ABG pO2 (Temp Correct ABG HCO3 ABG O2 Saturation ABG Base Excess Respiration Rate O2 Delivery Device Ventilator Type Vent Mode FiO2 Inspiratory Time PEEP Pressure Support Pressure Control EPAP IPAP BiPAP Sodium 138 Potassium 4.7 Chloride 102 Carbon Dioxide 28 Anion Gap 8 BUN 22 Creatinine 1.07 Est GFR ( Amer) 85.9 Est GFR (Non-Af Amer) 71.0 BUN/Creatinine Ratio 20.6 H Glucose 380 H POC Glucose (mg/dL) 396 H Hemoglobin A1c Lactic Acid 3.3 H* Calcium 9.1 Total Bilirubin AST ALT Alkaline Phosphatase Total Creatine Kinase CK-MB (CK-2) Troponin I C-Reactive Protein B-Natriuretic Peptide Total Protein Albumin Globulin Albumin/Globulin Ratio Urine Color Urine Appearance Urine pH Ur Specific [place] Urine Protein Urine Ketones Urine Blood Urine Nitrate Urine Bilirubin Urine Urobilinogen Ur Leukocyte Esterase Urine WBC (Auto) Urine RBC (Auto) Ur Squamous Epith Cells Urine Bacteria Granular Casts Urine Glucose Urine Ascorbic Acid 12/14/18 12/15/18 12/15/18 23:06 05:33 05:33 WBC 9.7 RBC 3.08 L Hgb 10.1 L Hct 31 L MCV 99 H MCH 33 H MCHC 33 RDW 18 H Plt Count 169 MPV 8.8 Neut % (Auto) Lymph % (Auto) [place] % (Auto) Eos % (Auto) Baso % (Auto) Absolute Neuts (auto) Absolute Lymphs (auto) Absolute Monos (auto) Absolute Eos (auto) Absolute Basos (auto) Absolute Nucleated RBC Nucleated RBC % APTT Patient Temperature ABG pH ABG pH (Temp Correct) ABG pCO2 ABG pCO2 (Temp Corrct ABG pO2 ABG pO2 (Temp Correct ABG HCO3 ABG O2 Saturation ABG Base Excess Respiration Rate O2 Delivery Device Ventilator Type Vent Mode FiO2 Inspiratory Time PEEP Pressure Support Pressure Control EPAP IPAP BiPAP Sodium 138 Potassium 4.3 Chloride 103 Carbon Dioxide 30 Anion Gap 5 BUN 25 H Creatinine 1.13 Est GFR ( Amer) 80.6 Est GFR (Non-Af Amer) 66.7 BUN/Creatinine Ratio 22.1 H Glucose 315 H POC Glucose (mg/dL) Hemoglobin A1c Lactic Acid Calcium 8.9 Total Bilirubin 2.10 H AST 10 L ALT 18 Alkaline Phosphatase 55 Total Creatine Kinase CK-MB (CK-2) Troponin I C-Reactive Protein B-Natriuretic Peptide Total Protein 6.5 Albumin 3.6 Globulin 2.9 Albumin/Globulin Ratio 1.2 Urine Color Yellow Urine Appearance Clear Urine pH 6.0 Ur Specific [place] 1.020 Urine Protein 2+(100 mg/dl) A Urine Ketones Trace A Urine Blood 3+ A Urine Nitrate Negative Urine Bilirubin Negative Urine Urobilinogen Negative Ur Leukocyte Esterase Negative Urine WBC (Auto) 2+(11-20/hpf) A Urine RBC (Auto) 3+(>10/hpf) A Ur Squamous Epith Cells Present A Urine Bacteria Absent Granular Casts Present A Urine Glucose 3+(>=500 mg/dl) A Urine Ascorbic Acid Not Reportable 12/15/18 12/15/18 05:40 07:11 WBC RBC Hgb Hct MCV MCH MCHC RDW Plt Count MPV Neut % (Auto) Lymph % (Auto) [place] % (Auto) Eos % (Auto) Baso % (Auto) Absolute Neuts (auto) Absolute Lymphs (auto) Absolute Monos (auto) Absolute Eos (auto) Absolute Basos (auto) Absolute Nucleated RBC Nucleated RBC % APTT Patient Temperature ABG pH ABG pH (Temp Correct) ABG pCO2 ABG pCO2 (Temp Corrct ABG pO2 ABG pO2 (Temp Correct ABG HCO3 ABG O2 Saturation ABG Base Excess Respiration Rate O2 Delivery Device Ventilator Type Vent Mode FiO2 Inspiratory Time PEEP Pressure Support Pressure Control EPAP IPAP BiPAP Sodium Potassium Chloride Carbon Dioxide Anion Gap BUN Creatinine Est GFR ( Amer) Est GFR (Non-Af Amer) BUN/Creatinine Ratio Glucose POC Glucose (mg/dL) 320 H Hemoglobin A1c Lactic Acid 1.4 Calcium Total Bilirubin AST ALT Alkaline Phosphatase Total Creatine Kinase CK-MB (CK-2) Troponin I C-Reactive Protein B-Natriuretic Peptide Total Protein Albumin Globulin Albumin/Globulin Ratio Urine Color Urine Appearance Urine pH Ur Specific [place] Urine Protein Urine Ketones Urine Blood Urine Nitrate Urine Bilirubin Urine Urobilinogen Ur Leukocyte Esterase Urine WBC (Auto) Urine RBC (Auto) Ur Squamous Epith Cells Urine Bacteria Granular Casts Urine Glucose Urine Ascorbic Acid Studies: CXR: as mentioned. Urine legionella and pneumococcal antigens negative. Blood cultures negative so far. Nutrition: Consistent carb diet Impression: Much better after diuresis. No evidence of infection at this time. Plan: 1. Continue with aggressive diuresis 2. Will d/c antibiotics. Critical Care Time:
[2018-12-15] MEDS ORDERED: Insulin REGULAR(*) 1 UNITS UNIT IV PUSH ONE (11:14)
[2018-12-15] MEDS: Morphine TAB Extended Release (*) 30 MG TAB.ER PO PRN (11:33)
[2018-12-15] MEDS: Insulin GLARGINE(*) 1 UNITS UNIT SUBCUT SCH (15:54)
[2018-12-15] MEDS: Atorvastatin* 40 MG TAB PO SCH (16:40)
[2018-12-15] MEDS: Warfarin TAB(*) 7.5 MG PO SCH (19:13)
[2018-12-15] MEDS: Mometasone 220 MCG MDI INH SCH (19:24)
[2018-12-16] MEDS: Albuterol/Ipratropium NEB.SOL* Albuterol 2.5 MG/Ipratropium 0.5 MG 3 ML INH SCH ×4 (01:43→21:07)
[2018-12-16] MEDS: Insulin LISPRO* 1 UNITS UNIT SUBCUT SCH ×4 (08:31→21:22)
[2018-12-16] MEDS: Metolazone TAB* 5 MG PO SCH (08:34)
[2018-12-16] MEDS: Spironolactone TAB* 25 MG PO SCH (08:35)
[2018-12-16] MEDS: amLODIPine TAB* 5 MG PO SCH (08:35)
[2018-12-16] MEDS: Escitalopram * 10 MG TAB PO SCH (08:36)
[2018-12-16] MEDS: Metoprolol Tartrate TAB* 50 mg PO SCH ×2 (08:37→21:31)
[2018-12-16] MEDS: metFORMIN* 500 MG TAB PO SCH ×2 (08:37→17:20)
[2018-12-16] MEDS: Morphine TAB Extended Release (*) 30 MG TAB.ER PO PRN ×2 (08:38→20:46)
[2018-12-16] MEDS: Acetaminophen TAB* 325 MG PO PRN ×2 (08:39→17:25)
[2018-12-16] MEDS: Pregabalin CAP(*) 25 MG PO PRN ×2 (10:01→20:45)
[2018-12-16] MEDS: Torsemide TAB* 20 MG PO SCH (10:06)
[2018-12-16] MEDS: oxyCODONE TAB* 5 MG TAB PO PRN (11:21)
[2018-12-16] MEDS: Insulin GLARGINE(*) 1 UNITS UNIT SUBCUT SCH (15:17)
[2018-12-16 16:29] LABS: BUN/Creatinine Ratio 26.7 (8-20); Calcium 9.9 mg/dL (8.6-10.3); EGFR African American 58.2 (>60); EGFR Non-African American 48.1 (>60); Potassium 3.7 mmol/L (3.5-5.0)
[2018-12-16] MEDS: Atorvastatin* 40 MG TAB PO SCH (17:20)
[2018-12-16] MEDS: Warfarin TAB(*) 7.5 MG PO SCH (17:26)
--- NOTE | 2018-12-16 18:05 | PN ---
Subjective Date of Service: 12/16/18 Interval History: Reports improvement in breathing since coming to the hospital.reports that he thought he was going to .but reports that he is still very sob Family History: Unchanged from Admission Social History: Unchanged from Admission Past Medical History: Unchanged from Admission Objective Active Medications: Acetaminophen (Tylenol Tab*) 650 mg PO Q6H PRN PRN Reason: PAIN - MILD Last Admin: 12/16/18 17:25 Dose: 650 mg Albuterol/Ipratropium (Duoneb (Albuterol 2.5 Mg/Ipratropium 0.5 Mg)) 1 neb INH [id number] AWAKE [facility] Last Admin: 12/16/18 13:29 Dose: Not Given Amlodipine Besylate (Norvasc Tab*) 10 mg PO DAILY [facility] Last Admin: 12/16/18 08:35 Dose: 10 mg Atorvastatin Calcium (Lipitor*) 40 mg PO 1700 [facility] Last Admin: 12/16/18 17:20 Dose: 40 mg Escitalopram Oxalate (Lexapro *) 10 mg PO DAILY [facility] Last Admin: 12/16/18 08:36 Dose: 10 mg Furosemide (Lasix Iv*) 40 mg IV BID [facility] Azithromycin (Zithromax 500 Mg/250 Ml) 500 mg in 250 mls @ 250 mls/hr IVPB Q24H [facility] Ceftriaxone Sodium 1 gm/ (Sodium Chloride) 50 mls @ 100 mls/hr IVPB Q24H [facility] Insulin Glargine (Lantus(*)) 70 units SUBCUT Q24H [facility] Last Admin: 12/16/18 15:17 Dose: 70 units Insulin Human Lispro (Humalog*) 0 units SUBCUT ACHS [facility]; Protocol Last Admin: 12/16/18 17:19 Dose: 13 units Metformin HCl (Glucophage*) 1,000 mg PO BID WITH MEALS [facility] Last Admin: 12/16/18 17:20 Dose: 1,000 mg Metolazone (Zaroxolyn Tab*) 2.5 mg PO DAILY [facility] Last Admin: 12/16/18 08:34 Dose: 2.5 mg Metoprolol Tartrate (Lopressor Tab*) 50 mg PO BID [facility] Last Admin: 12/16/18 08:37 Dose: 50 mg Mometasone Furoate (Asmanex 220 Mcg Mdi *) 2 puff INH QPM [facility] Last Admin: 12/15/18 19:24 Dose: 2 puff Morphine Sulfate (Ms Contin(*)) 30 mg PO TID PRN PRN Reason: PAIN Last Admin: 12/16/18 08:38 Dose: 30 mg Oxycodone HCl (Roxycodone Tab*) 5 mg PO BID PRN PRN Reason: PAIN Last Admin: 12/16/18 11:21 Dose: 5 mg Pregabalin (Lyrica Cap(*)) 75 mg PO TID PRN PRN Reason: PAIN Last Admin: 12/16/18 10:01 Dose: 75 mg Spironolactone (Aldactone Tab*) 50 mg PO DAILY [facility] Last Admin: 12/16/18 08:35 Dose: 50 mg Warfarin Sodium (Coumadin Tab(*)) 7.5 mg PO SuWe@1700 [facility] Last Admin: 12/15/18 19:13 Dose: 7.5 mg Warfarin Sodium (Coumadin Tab(*)) 3.75 mg PO MoTuThFrSa@1700 [facility] Last Admin: 12/16/18 17:26 Dose: 3.75 mg Vital Signs - 8 hr 12/16/18 12/16/18 12/16/18 10:01 11:11 11:15 Temperature 98.0 F Pulse Rate 66 Respiratory 18 18 16 Rate Blood Pressure 138/65 (mmHg) O2 Sat by Pulse 99 Oximetry 12/16/18 12/16/18 12/16/18 11:21 12:00 13:22 Temperature Pulse Rate Respiratory 18 16 16 Rate Blood Pressure (mmHg) O2 Sat by Pulse Oximetry 12/16/18 15:55 Temperature 98.0 F Pulse Rate 81 Respiratory 15 Rate Blood Pressure 136/59 (mmHg) O2 Sat by Pulse 98 Oximetry Oxygen Devices in Use Now: Nasal Cannula, CPAP Eyes: No Scleral Icterus Ears/Nose/Mouth/Throat: NL Teeth, Lips, Gums Neck: NL Appearance and Movements; NL JVP Respiratory: Symmetrical Chest Expansion and Respiratory Effort, Clear to Auscultation Cardiovascular: NL Sounds; No Murmurs; No JVD Abdominal: NL Sounds; No Tenderness; No Distention Extremities: - - 1+ Edema Skin: No Rash or Ulcers Neurological: Alert and Oriented x 3 Result Diagrams: 12/15/18 05:33 12/16/18 16:03 Microbiology and Other Data: Microbiology 12/14/18 10:54 Aerobic Blood Culture - Preliminary Blood Venous No Growth Day 2 Anaerobic Blood Culture - Preliminary No Growth Day 2 12/14/18 10:47 Aerobic Blood Culture - Preliminary Blood Venous No Growth Day 2 Anaerobic Blood Culture - Preliminary No Growth Day 2 12/14/18 13:15 Urine Culture - Final Urine No Growth (<1,000 CFU/mL) 12/14/18 23:06 Legionella Urinary Antigen - Final Urine Negative Legionella Antigen Streptococcus pneumoniae Ag Screen - Final Negative S. pneumo Antigen 12/14/18 13:00 Nasal Screen MRSA (PCR) - Final Nasal Mrsa Not Detected Assess/Plan/Problems-Billing Assessment: - Patient Problems (1) Pulmonary edema Current Visit: Yes Status: Acute Code(s): J81.1 - CHRONIC PULMONARY EDEMA SNOMED Code(s): 40134666 Comment: improved with diuresis X ray with ongoing pul edema will switch to lasix 40 mg iv bid instead of po torsemide for now and continue spironolactone echo ordered to eval cardiac fx and eval for pul hypertension and to eval if cardiac etiology repeat cxr in am (2) Pneumonia Current Visit: Yes Status: Acute Code(s): J18.9 - PNEUMONIA, UNSPECIFIED ORGANISM SNOMED Code(s): 597932280 Comment: Developing pneumonia with bilateral infiltrates on X ray Will restart ceftriaxone, azithromycin as still sob can taper quickly with clinical improvement (3) Atrial fibrillation Current Visit: No Status: Chronic Code(s): I48.91 - UNSPECIFIED ATRIAL FIBRILLATION SNOMED Code(s): 89371654 Comment: -Rate controlled -Continue metopolol and warfarin. (4) HTN (hypertension) Current Visit: No Status: Chronic Code(s): I10 - ESSENTIAL (PRIMARY) HYPERTENSION SNOMED Code(s): 06892836 Comment: -continue current meds (5) Morbid obesity Current Visit: No Status: Chronic Code(s): E66.01 - MORBID (SEVERE) OBESITY DUE TO EXCESS CALORIES SNOMED Code(s): 266833779 Comment: Refer to [facility] on discharge. (6) NEAL (obstructive sleep apnea) Current Visit: No Status: Chronic Code(s): G47.33 - OBSTRUCTIVE SLEEP APNEA (ADULT) (PEDIATRIC) SNOMED Code(s): 12079687 Comment: -Continue home CPAP use (7) Type 2 diabetes mellitus Current Visit: No Status: Chronic Comment: -insulin sliding scale
[2018-12-16] MEDS: cefTRIAXone(*) 1 GM in NS 0.9% 50 ML* 50 ML IVPB SCH (20:00)
[2018-12-16] MEDS: Azithromycin 500 mg/250 ml NS 500 MG/250 ML BAG IVPB SCH (20:46)
[2018-12-16] MEDS: Mometasone 220 MCG MDI INH SCH (21:07)
[2018-12-16] MEDS: Furosemide IV* 10 MG/ML VIAL (40 MG) IV SCH (21:31)
[2018-12-17] MEDS: Albuterol/Ipratropium NEB.SOL* Albuterol 2.5 MG/Ipratropium 0.5 MG 3 ML INH SCH ×4 (01:26→19:42)
[2018-12-17] MEDS ORDERED: Perflutren Lipid Microsphere* 3 ML VIAL ONE (08:34)
[2018-12-17] MEDS: Insulin LISPRO* 1 UNITS UNIT SUBCUT SCH ×4 (09:28→20:21)
[2018-12-17] MEDS: Metolazone TAB* 5 MG PO SCH (09:29)
[2018-12-17] MEDS: Spironolactone TAB* 25 MG PO SCH (09:30)
[2018-12-17] MEDS: amLODIPine TAB* 5 MG PO SCH (09:31)
[2018-12-17] MEDS: metFORMIN* 500 MG TAB PO SCH ×2 (09:32→17:27)
[2018-12-17] MEDS: Escitalopram * 10 MG TAB PO SCH (09:32)
[2018-12-17] MEDS: Metoprolol Tartrate TAB* 50 mg PO SCH (09:32)
[2018-12-17 09:38] LABS: ABS Basophils 0.1 10^3/ul (0-0.2); ABS Eosinophils 0.3 10^3/ul (0-0.6); ABS Neutrophils 5.8 10^3/ul (1.5-7.7); Eosinophil % 3.3 %; Hematocrit 37 % (42-52); Hemoglobin 12.4 g/dL (14.0-18.0); Lymphocyte % 12.6 %; Mean Corpuscular HGB Conc 34 g/dL (31-36); Mean Corpuscular Hemoglobin 33 pg (27-31); Mean Corpuscular Volume 98 fL (80-94); Platelet Count 208 10^3/uL (150-450); Red Blood Count 3.75 10^6 /uL (4.18-5.48); Red Cell Distribution Width 18 % (10-15); White Blood Count 8.1 10^3/uL (3.5-10.8)
[2018-12-17] MEDS: Furosemide IV* 10 MG/ML VIAL (40 MG) IV SCH ×3 (09:41→14:49)
[2018-12-17] MEDS: Pregabalin CAP(*) 25 MG PO PRN ×2 (09:41→20:19)
[2018-12-17] MEDS: Morphine TAB Extended Release (*) 30 MG TAB.ER PO PRN ×2 (09:42→20:44)
[2018-12-17 09:47] LABS: INR 2.29 (0.82-1.09)
[2018-12-17 09:57] LABS: BUN/Creatinine Ratio 38.7 (8-20); EGFR African American 82.3 (>60); Potassium 3.6 mmol/L (3.5-5.0)
--- NOTE | 2018-12-17 12:50 | ECHO ---
*[facility]* [place] [address] Fax #: [phone] Transthoracic Echocardiogram Patient: Jonah Cordon : 1960 Study Date: 12/17/2018 Age: 58 Gender: M HR: 56 bpm Height: 70 in /177.8 cm BSA: 2.62 m^2 Weight: 339.3 lb /154.2 kg BMI: 48.8 kg/m^2 *Water Chemist: * Nita Oliveira RDCS RN *Referring Physician: * Diana Evans *Reading Physician: * Jesu Carmen MD Indications: Congestive Heart Failure. History: Atrial fibrillation. Pericardial effusion. Chronic obstructive pulmonary disease, O2 dependent. CKD. Functional status: Following treatment plan for sleep apnea. Risk factors: Former tobacco use. Hypertension. Diabetes mellitus. Morbidly obese. Dyslipidemia. Conclusions Summary: - Left ventricle: The cavity size is normal. Wall thickness is mildly to moderately increased. Systolic function is normal. The estimated ejection fraction is 55-60%. Wall motion is normal; there are no regional wall motion abnormalities. - Mitral valve: There is no significant regurgitation. - Aortic valve: There is no evidence of stenosis. There is no significant regurgitation. - Tricuspid valve: There is no significant regurgitation. - Pericardium, extracardiac: There is no significant pericardial effusion. - Pulmonary arteries: Systolic pressure can not be accurately estimated. - Compared to study of 10/01/14, there is little change. Study data: Transthoracic echocardiogram. Procedure: Transthoracic echocardiography was performed. Image quality was fair. The study was technically limited due to body habitus and COPD. Intravenous Definity 4 ml was administered. Complete 2D, spectral Doppler, and color flow Doppler. Location: Bedside. Patient status: Inpatient. Patient room number: 419-01. Rhythm: Atrial fibrillation. Findings Left ventricle: The cavity size is normal. Wall thickness is mildly to moderately increased. Systolic function is normal. The estimated ejection fraction is 55-60%. Wall motion is normal; there are no regional wall motion abnormalities. There is no consistent Doppler evidence of clinically significant diastolic dysfunction. Right ventricle: The cavity size is mildly dilated. Systolic function is normal. Ventricular septum: The outflow septum has a sigmoid appearance at 1.8cm. Left atrium: The atrium is moderately dilated. Right atrium: The atrium is mildly to moderately dilated. Mitral valve: The leaflets are mildly thickened. There is no evidence of stenosis. There is no significant regurgitation. Aortic valve: The valve is trileaflet. The leaflets are mildly thickened. There is no evidence of stenosis. There is no significant regurgitation. Tricuspid valve: The leaflets are normal thickness. There is no evidence of stenosis. There is no significant regurgitation. Pulmonic valve: The leaflets are normal thickness. There is no evidence of stenosis. There is no significant regurgitation. Aorta: Aortic root: The aortic root is appears normal. Ascending aorta: The ascending aorta is appears normal. Aortic arch: The aortic arch is appears normal. Pericardium: A prominent pericardial fat pad is present. There is no significant pericardial effusion. Pulmonary arteries: The main pulmonary artery is normal-sized. Systolic pressure can not be accurately estimated. Systemic veins: Inferior vena cava: The vessel is dilated. There is (< 50%) respiratory change in the IVC dimension. Measurements Left ventricle Value Ref Right atrium continued Value Ref REYN, LAX 5.0 cm 4.2 - 5.8 SI dim, ES, A4C (H) 6.2 cm 3.4 - 5.3 ESD, LAX 3.3 cm 2.5 - 4.0 Estimated RAP 15 mm Hg --------- FS, LAX 34 % 25 - 43 PW, ED, LAX (H) 1.3 cm 0.6 - 1.0 Aortic valve Value Ref IVS/PW, ED 1.1 Kendra diam, ED 1.7 cm --------- PW/ID, ED 0.25 Peak v, S 1.12 m/sec --------- E', lat kendra, TDI 10.7 cm/sec >=10.0 VTI, S 21.6 cm -- ------- E/e', lat kendra, 9 Mean grad, S 3.0 mm Hg ----- ---- TDI Peak grad, S 5.0 mm Hg --------- E', med kendra, TDI (L) 6.3 cm/sec >=7.0 LVOT/AV, VTI ratio 0.79 -- ------- E/e', med kendra, 15 TDI Mitral valve Value Ref E', avg, TDI 8.5 cm/sec Peak E 0.93 m/sec ----- ---- E/e', avg, TDI 11 <=14 Decel time 220 ms -- ------- Peak grad, D 3.5 mm Hg --------- LVOT Value Ref Peak lori, S 0.82 m/sec Pulmonic valve Value Ref VTI, S 17.1 cm Peak v, S 0.87 m/sec --------- Mean grad, S 2 mm Hg Peak grad, S 3.0 mm Hg --------- Ventricular septum Value Ref Aortic root Value Ref IVS, ED (H) 1.4 cm 0.6 - 1.0 Root diam 2.9 cm <4.6 Right ventricle Value Ref Ascending aorta Value Ref ERYN, LAX 3.9 cm AAo AP diam, S 3.5 cm --------- ERYN minor ax, (H) 4.0 cm 1.9 - 3.5 A4C mid Aortic arch Value Ref Arch diam 3.0 cm --------- Left atrium Value Ref AP dim, ES 3.80 cm 3.00 - Decending aorta Value Ref 4.00 Jordan peak lori 1 m/sec --------- ML dim, A4C 4.4 cm SI dim, A4C 5.7 cm Inferior vena cava Value Ref Vol/bsa, ES, 1-p (H) 49 ml/m^2 12 - 37 Diam 2.2 cm --------- A4C Vol/bsa, ES, A/L (H) 45 ml/m^2 16 - 34 Right atrium Value Ref ML dim, ES, A4C 3.1 cm 2.6 - 4.4 Legend: (L) and (H) yojana values outside specified reference range. Prepared and electronically signed by Jesu Carmen MD 12/17/2018 12:50
[2018-12-17] MEDS ORDERED: Furosemide IV* 10 MG/ML VIAL (40 MG) IV SCH (14:00)
[2018-12-17] MEDS: Insulin GLARGINE(*) 1 UNITS UNIT SUBCUT SCH (14:50)
[2018-12-17] MEDS: cefTRIAXone(*) 1 GM in NS 0.9% 50 ML* 50 ML IVPB SCH (17:23)
[2018-12-17] MEDS: Warfarin TAB(*) 7.5 MG PO SCH (17:27)
[2018-12-17] MEDS: Atorvastatin* 40 MG TAB PO SCH (17:28)
[2018-12-17] MEDS: Azithromycin 500 mg/250 ml NS 500 MG/250 ML BAG IVPB SCH (18:02)
[2018-12-17] MEDS: Mometasone 220 MCG MDI INH SCH (19:42)
[2018-12-17] MEDS ORDERED: Potassium Chlor TAB* 20 MEQ TAB.ER PO ONE (19:51)
--- NOTE | 2018-12-17 19:57 | PN ---
Subjective Date of Service: 12/17/18 Interval History: No overnight events. Pt reports that his feet are the "smallest" he's ever seen them. Has had excellent UOP today. Unsure if his SOB is improved. Yet his weight is recorded as increased? Objective Active Medications: Acetaminophen (Tylenol Tab*) 650 mg PO Q6H PRN PRN Reason: PAIN - MILD Last Admin: 12/16/18 17:25 Dose: 650 mg Albuterol/Ipratropium (Duoneb (Albuterol 2.5 Mg/Ipratropium 0.5 Mg)) 1 neb INH [id number] AWAKE PRN PRN Reason: wheeze Amlodipine Besylate (Norvasc Tab*) 10 mg PO DAILY [facility] Last Admin: 12/17/18 09:31 Dose: 10 mg Atorvastatin Calcium (Lipitor*) 40 mg PO 1700 [facility] Last Admin: 12/17/18 17:28 Dose: 40 mg Escitalopram Oxalate (Lexapro *) 10 mg PO DAILY [facility] Last Admin: 12/17/18 09:32 Dose: 10 mg Insulin Glargine (Lantus(*)) 70 units SUBCUT Q24H [facility] Last Admin: 12/17/18 14:50 Dose: 70 units Insulin Human Lispro (Humalog*) 0 units SUBCUT ACHS [facility]; Protocol Last Admin: 12/17/18 17:28 Dose: 16 units Metformin HCl (Glucophage*) 1,000 mg PO BID WITH MEALS [facility] Last Admin: 12/17/18 17:27 Dose: 1,000 mg Metolazone (Zaroxolyn Tab*) 2.5 mg PO DAILY [facility] Last Admin: 12/17/18 09:29 Dose: 2.5 mg Metoprolol Succinate (Toprol Xl Tab*) 100 mg PO BEDTIME [facility] Mometasone Furoate (Asmanex 220 Mcg Mdi *) 2 puff INH QPM [facility] Last Admin: 12/17/18 19:42 Dose: Not Given Morphine Sulfate (Ms Contin(*)) 30 mg PO TID PRN PRN Reason: PAIN Last Admin: 12/17/18 09:42 Dose: 30 mg Oxycodone HCl (Roxycodone Tab*) 5 mg PO BID PRN PRN Reason: PAIN Last Admin: 12/16/18 11:21 Dose: 5 mg Pregabalin (Lyrica Cap(*)) 75 mg PO TID PRN PRN Reason: PAIN Last Admin: 12/17/18 09:41 Dose: 75 mg Spironolactone (Aldactone Tab*) 50 mg PO DAILY [facility] Last Admin: 12/17/18 09:30 Dose: 50 mg Tiotropium [place] (Spiriva Respimat 2.5 Mcg) 2 puff INH DAILY [facility] Torsemide (Torsemide) 40 mg PO 0600,1400 [facility] Warfarin Sodium (Coumadin Tab(*)) 7.5 mg PO SuWe@1700 [facility] Last Admin: 12/15/18 19:13 Dose: 7.5 mg Warfarin Sodium (Coumadin Tab(*)) 3.75 mg PO MoTuThFrSa@1700 [facility] Last Admin: 12/17/18 17:27 Dose: 3.75 mg Vital Signs - 8 hr 12/17/18 12/17/18 13:26 15:12 Temperature 98.3 F Pulse Rate 88 70 Respiratory 20 18 Rate Blood Pressure 136/69 (mmHg) O2 Sat by Pulse 98 99 Oximetry Oxygen Devices in Use Now: Nasal Cannula Appearance: no acute distress, alert and interactive, malodorous Ears/Nose/Mouth/Throat: Clear Oropharnyx, Mucous Membranes Moist Neck: NL Appearance and Movements; NL JVP, Trachea Midline Respiratory: Symmetrical Chest Expansion and Respiratory Effort, Clear to Auscultation Cardiovascular: - - irreg irreg, no mgr Abdominal: NL Sounds; No Tenderness; No Distention, No Hepatosplenomegaly Extremities: - - wrinkles over LEs, trace edema over ankles Neurological: Alert and Oriented x 3 Result Diagrams: 12/17/18 09:21 12/17/18 09:21 Microbiology and Other Data: Microbiology 12/14/18 10:54 Aerobic Blood Culture - Preliminary Blood Venous No Growth Day 2 Anaerobic Blood Culture - Preliminary No Growth Day 2 12/14/18 10:47 Aerobic Blood Culture - Preliminary Blood Venous No Growth Day 2 Anaerobic Blood Culture - Preliminary No Growth Day 2 12/14/18 13:15 Urine Culture - Final Urine No Growth (<1,000 CFU/mL) 12/14/18 23:06 Legionella Urinary Antigen - Final Urine Negative Legionella Antigen Streptococcus pneumoniae Ag Screen - Final Negative S. pneumo Antigen 12/14/18 13:00 Nasal Screen MRSA (PCR) - Final Nasal Mrsa Not Detected Assess/Plan/Problems-Billing Assessment: 58M with NICM/HFpEF, COPD on home O2 3L, afib, HTN, DM2 on insulin, CKD, seronegative RA and chronic pain on opioids, morbid obesity, NEAL on CPAP, presents with HF exacerbation. - Patient Problems (1) Pulmonary edema Comment: and LE edema - HFpEF exacerbation. TTE without new changes from prior. Responded well to furosemide IV. - switch to torsemide 40mg bid - cont home spironolactone (2) COPD (chronic obstructive pulmonary disease) Comment: Stable with no s/s exacerbation; CXR without infiltrate -switch [place] to spiriva (formulary); nebs prn -O2 dependent on 3L NC at home and inpatient, SaO2 goal 88-92% (3) Anxiety Comment: - cont escitalopram (4) Atrial fibrillation Comment: -Rate controlled -Continue metopolol and warfarin. (5) HTN (hypertension) Comment: -currently on metoprolol, amlodipine, spironolactone, with BP at goal - holding home hydralazine, aliskarin (6) NEAL (obstructive sleep apnea) Comment: -Continue home CPAP use (7) Type 2 diabetes mellitus Comment: - cont glargine - insulin sliding scale (8) DVT prophylaxis Comment: - on warfarin
[2018-12-17] MEDS ORDERED: Albuterol/Ipratropium NEB.SOL* Albuterol 2.5 MG/Ipratropium 0.5 MG 3 ML INH PRN (20:10)
[2018-12-17] MEDS: Metoprolol Succinate XL TAB* 100 MG PO SCH (20:20)
[2018-12-17] MEDS: SPIRIVA Respimat* (tiotropium) 2.5 mcg/inh Inhaler INH SCH (20:23)
[2018-12-18] MEDS: Pregabalin CAP(*) 25 MG PO PRN ×3 (05:33→22:21)
[2018-12-18] MEDS: Morphine TAB Extended Release (*) 30 MG TAB.ER PO PRN ×3 (05:33→22:21)
[2018-12-18] MEDS: Torsemide TAB* 20 MG PO SCH ×2 (05:33→14:28)
[2018-12-18] MEDS ORDERED: Furosemide IV* 10 MG/ML VIAL (40 MG) IV SCH ×2 (06:00→14:00)
[2018-12-18 07:50] LABS: BUN/Creatinine Ratio 37.5 (8-20); Calcium 9.7 mg/dL (8.6-10.3); EGFR African American 88.8 (>60); EGFR Non-African American 73.4 (>60); Magnesium 1.5 mg/dL (1.9-2.7); Potassium 3.8 mmol/L (3.5-5.0)
[2018-12-18] MEDS: Insulin LISPRO* 1 UNITS UNIT SUBCUT SCH ×4 (09:00→20:23)
[2018-12-18] MEDS: metFORMIN* 500 MG TAB PO SCH ×2 (09:01→17:44)
[2018-12-18] MEDS: amLODIPine TAB* 5 MG PO SCH (09:01)
[2018-12-18] MEDS: Spironolactone TAB* 25 MG PO SCH (09:01)
[2018-12-18] MEDS: Escitalopram * 10 MG TAB PO SCH (09:02)
[2018-12-18] MEDS: Metolazone TAB* 5 MG PO SCH (09:02)
[2018-12-18] MEDS: SPIRIVA Respimat* (tiotropium) 2.5 mcg/inh Inhaler INH SCH (09:19)
[2018-12-18] MEDS ORDERED: Potassium Chlor TAB* 20 MEQ TAB.ER PO ONE (09:20)
[2018-12-18] MEDS ORDERED: Magnesium Sulfate IV* 3 GM in NS 0.9% 100 ML* 100 ML IVPB ONE (09:20)
[2018-12-18] MEDS ORDERED: Magnesium Sulfate 3 GM IV IVPB ONE ×2 (10:00)
[2018-12-18] MEDS: oxyCODONE TAB* 5 MG TAB PO PRN (12:51)
[2018-12-18] MEDS: Insulin GLARGINE(*) 1 UNITS UNIT SUBCUT SCH ×2 (15:25→20:22)
[2018-12-18] MEDS ORDERED: GuaiFENesin DM sugar free 100mg/10mg 5 ML UDC PO PRN (15:49)
--- NOTE | 2018-12-18 16:03 | PN ---
Subjective Date of Service: 12/18/18 Interval History: Pt stating he hasn't tried to walk much due to Andre in place, and feet hurting. Able to lay flat without SOB. Feels mucous stuck in airways but not coughing much. Would like to go home soon to see his dog. Objective Active Medications: Acetaminophen (Tylenol Tab*) 650 mg PO Q6H PRN PRN Reason: PAIN - MILD Last Admin: 12/16/18 17:25 Dose: 650 mg Albuterol/Ipratropium (Duoneb (Albuterol 2.5 Mg/Ipratropium 0.5 Mg)) 1 neb INH [id number] AWAKE PRN PRN Reason: wheeze Last Admin: 12/18/18 08:13 Dose: 1 neb Amlodipine Besylate (Norvasc Tab*) 10 mg PO DAILY [facility] Last Admin: 12/18/18 09:01 Dose: 10 mg Atorvastatin Calcium (Lipitor*) 40 mg PO 1700 [facility] Last Admin: 12/17/18 17:28 Dose: 40 mg Escitalopram Oxalate (Lexapro *) 10 mg PO DAILY [facility] Last Admin: 12/18/18 09:02 Dose: 10 mg Guaifenesin/Dextromethorphan (Robitussin Dm Sugar Free*) 10 ml PO Q6H PRN PRN Reason: COUGH Insulin Glargine (Lantus(*)) 70 units SUBCUT 1630 [facility] Insulin Human Lispro (Humalog*) 0 units SUBCUT ACHS [facility]; Protocol Last Admin: 12/18/18 12:49 Dose: 13 units Metformin HCl (Glucophage*) 1,000 mg PO BID WITH MEALS [facility] Last Admin: 12/18/18 09:01 Dose: 1,000 mg Metolazone (Zaroxolyn Tab*) 2.5 mg PO DAILY [facility] Last Admin: 12/18/18 09:02 Dose: 2.5 mg Metoprolol Succinate (Toprol Xl Tab*) 100 mg PO BEDTIME [facility] Last Admin: 12/17/18 20:20 Dose: 100 mg Mometasone Furoate (Asmanex 220 Mcg Mdi *) 2 puff INH QPM [facility] Last Admin: 12/17/18 19:42 Dose: Not Given Morphine Sulfate (Ms Contin(*)) 30 mg PO TID PRN PRN Reason: PAIN Last Admin: 12/18/18 14:22 Dose: 30 mg Oxycodone HCl (Roxycodone Tab*) 5 mg PO BID PRN PRN Reason: PAIN Last Admin: 12/18/18 12:51 Dose: 5 mg Pregabalin (Lyrica Cap(*)) 75 mg PO TID PRN PRN Reason: PAIN Last Admin: 12/18/18 14:24 Dose: 75 mg Spironolactone (Aldactone Tab*) 50 mg PO DAILY [facility] Last Admin: 12/18/18 09:01 Dose: 50 mg Tiotropium [place] (Spiriva Respimat 2.5 Mcg) 2 puff INH DAILY [facility] Last Admin: 12/18/18 09:19 Dose: Not Given Torsemide (Demadex*) 40 mg PO 0600,1400 [facility] Last Admin: 12/18/18 14:28 Dose: 40 mg Warfarin Sodium (Coumadin Tab(*)) 7.5 mg PO SuWe@1700 [facility] Last Admin: 12/15/18 19:13 Dose: 7.5 mg Warfarin Sodium (Coumadin Tab(*)) 3.75 mg PO MoTuThFrSa@1700 [facility] Last Admin: 12/17/18 17:27 Dose: 3.75 mg Vital Signs - 8 hr 12/18/18 12/18/18 12/18/18 08:00 08:44 11:15 Temperature 97.4 F 96.7 F Pulse Rate 60 65 75 Respiratory 18 15 12 Rate Blood Pressure 119/62 137/61 (mmHg) O2 Sat by Pulse 98 97 99 Oximetry 12/18/18 12/18/18 12/18/18 12:51 14:22 14:24 Temperature Pulse Rate Respiratory 12 18 18 Rate Blood Pressure (mmHg) O2 Sat by Pulse Oximetry 12/18/18 15:00 Temperature Pulse Rate Respiratory 18 Rate Blood Pressure (mmHg) O2 Sat by Pulse Oximetry Oxygen Devices in Use Now: Nasal Cannula Appearance: well appearing, interactive, no increased WOB Eyes: No Scleral Icterus Ears/Nose/Mouth/Throat: Clear Oropharnyx, Mucous Membranes Moist Neck: NL Appearance and Movements; NL JVP, Trachea Midline Respiratory: Symmetrical Chest Expansion and Respiratory Effort, Clear to Auscultation Cardiovascular: - - irreg irreg, no mgr Abdominal: NL Sounds; No Tenderness; No Distention, No Hepatosplenomegaly Extremities: No Edema - +wrinkling Neurological: Alert and Oriented x 3 Result Diagrams: 12/17/18 09:21 12/18/18 06:37 Microbiology and Other Data: Microbiology 12/14/18 10:54 Aerobic Blood Culture - Preliminary Blood Venous No Growth Day 2 Anaerobic Blood Culture - Preliminary No Growth Day 2 12/14/18 10:47 Aerobic Blood Culture - Preliminary Blood Venous No Growth Day 2 Anaerobic Blood Culture - Preliminary No Growth Day 2 12/14/18 13:15 Urine Culture - Final Urine No Growth (<1,000 CFU/mL) 12/14/18 23:06 Legionella Urinary Antigen - Final Urine Negative Legionella Antigen Streptococcus pneumoniae Ag Screen - Final Negative S. pneumo Antigen 12/14/18 13:00 Nasal Screen MRSA (PCR) - Final Nasal Mrsa Not Detected Assess/Plan/Problems-Billing Assessment: 58M with NICM/HFpEF, COPD on home O2 3L, afib, HTN, DM2 on insulin, CKD, seronegative RA and chronic pain on opioids, morbid obesity, NEAL on CPAP, presents with HF exacerbation. - Patient Problems (1) Pulmonary edema Comment: and LE edema - HFpEF exacerbation. TTE without new changes from prior. Responded well to furosemide IV. - switch to torsemide 40mg bid - cont home spironolactone (2) COPD (chronic obstructive pulmonary disease) Comment: Stable with no s/s exacerbation; CXR without infiltrate -switch Incruse to Spiriva (formulary); nebs prn -O2 dependent on 3L NC at home and inpatient, SaO2 goal 88-92% (3) Anxiety Comment: - cont escitalopram (4) Atrial fibrillation Comment: -Rate controlled -Continue metopolol and warfarin. (5) HTN (hypertension) Comment: -currently on metoprolol, amlodipine, spironolactone, with BP at goal - holding home hydralazine, aliskarin (6) NEAL (obstructive sleep apnea) Comment: -Continue home CPAP use (7) Seronegative rheumatoid arthritis Comment: - cont chronic opioid therapy (8) Type 2 diabetes mellitus Comment: - cont glargine - insulin sliding scale - cont pregabalin for neuropathy (9) DVT prophylaxis Comment: - on warfarin
[2018-12-18] MEDS ORDERED: Insulin GLARGINE(*) 1 UNITS UNIT SUBCUT SCH (16:30)
[2018-12-18] MEDS: Atorvastatin* 40 MG TAB PO SCH (17:44)
[2018-12-18] MEDS: Warfarin TAB(*) 7.5 MG PO SCH (17:45)
[2018-12-18] MEDS: Mometasone 220 MCG MDI INH SCH (20:05)
[2018-12-18] MEDS ORDERED: Magnesium Hydroxide LIQ* 30 ML UDC PO ONE (20:17)
[2018-12-18] MEDS ORDERED: Senna TAB 8.6 mg* TAB PO ONE (20:17)
[2018-12-18] MEDS ORDERED: Senna TAB 8.6 mg* TAB PO PRN (20:18)
[2018-12-18] MEDS: Metoprolol Succinate XL TAB* 100 MG PO SCH (20:22)
[2018-12-19] MEDS: Acetaminophen TAB* 325 MG PO PRN (01:58)
[2018-12-19] MEDS: oxyCODONE TAB* 5 MG TAB PO PRN (01:58)
[2018-12-19] MEDS: Torsemide TAB* 20 MG PO SCH ×2 (05:29→15:45)
[2018-12-19] MEDS: Pregabalin CAP(*) 25 MG PO PRN ×2 (05:30→17:41)
[2018-12-19] MEDS: Morphine TAB Extended Release (*) 30 MG TAB.ER PO PRN ×2 (05:30→17:41)
[2018-12-19 06:11] LABS: BUN/Creatinine Ratio 34.1 (8-20); Calcium 9.6 mg/dL (8.6-10.3); EGFR African American 67.4 (>60); EGFR Non-African American 55.7 (>60); Magnesium 1.7 mg/dL (1.9-2.7); Potassium 3.8 mmol/L (3.5-5.0)
[2018-12-19] MEDS: SPIRIVA Respimat* (tiotropium) 2.5 mcg/inh Inhaler INH SCH (08:01)
[2018-12-19] MEDS: Metolazone TAB* 5 MG PO SCH (08:39)
[2018-12-19] MEDS: Escitalopram * 10 MG TAB PO SCH (08:39)
[2018-12-19] MEDS: amLODIPine TAB* 5 MG PO SCH (08:39)
[2018-12-19] MEDS: Magnesium Hydroxide LIQ* 30 ML UDC PO PRN (08:39)
[2018-12-19] MEDS: Spironolactone TAB* 25 MG PO SCH (08:40)
[2018-12-19] MEDS: metFORMIN* 500 MG TAB PO SCH ×2 (08:40→17:41)
[2018-12-19] MEDS: Insulin GLARGINE(*) 1 UNITS UNIT SUBCUT SCH ×2 (08:40→21:41)
[2018-12-19] MEDS: Insulin LISPRO* 1 UNITS UNIT SUBCUT SCH ×4 (08:41→21:42)
[2018-12-19] MEDS ORDERED: Magnesium Sulfate 2 GM IV* 2 GM/50 ML BAG IVPB ONE (13:02)
[2018-12-19] MEDS ORDERED: Potassium Chlor TAB* 20 MEQ TAB.ER PO ONE (13:02)
--- NOTE | 2018-12-19 17:32 | PN ---
Subjective Date of Service: 12/19/18 Interval History: Andre out, continues to have good UOP. Pt refused bowel regimen last night, received this AM so still no movement. Extensive discussion with patient about importance of mobility. CM applying for rehab but patient expresses wishes to go home. Denies SOB. Mucous clearing. Objective Active Medications: Acetaminophen (Tylenol Tab*) 650 mg PO Q6H PRN PRN Reason: PAIN - MILD Last Admin: 12/19/18 01:58 Dose: 650 mg Albuterol/Ipratropium (Duoneb (Albuterol 2.5 Mg/Ipratropium 0.5 Mg)) 1 neb INH [id number] AWAKE PRN PRN Reason: wheeze Last Admin: 12/18/18 08:13 Dose: 1 neb Amlodipine Besylate (Norvasc Tab*) 10 mg PO DAILY [facility] Last Admin: 12/19/18 08:39 Dose: 10 mg Atorvastatin Calcium (Lipitor*) 40 mg PO 1700 [facility] Last Admin: 12/18/18 17:44 Dose: 40 mg Escitalopram Oxalate (Lexapro *) 10 mg PO DAILY [facility] Last Admin: 12/19/18 08:39 Dose: 10 mg Guaifenesin/Dextromethorphan (Robitussin Dm Sugar Free*) 10 ml PO Q6H PRN PRN Reason: COUGH Insulin Glargine (Lantus(*)) 50 units SUBCUT 0800,2000 [facility] Insulin Human Lispro (Humalog*) 0 units SUBCUT ACHS [facility]; Protocol Last Admin: 12/19/18 12:35 Dose: 15 units Magnesium Hydroxide (Milk Of Magnesia Liq*) 30 ml PO BID PRN PRN Reason: CONSTIPATION Last Admin: 12/19/18 08:39 Dose: 30 ml Metformin HCl (Glucophage*) 1,000 mg PO BID WITH MEALS [facility] Last Admin: 12/19/18 08:40 Dose: 1,000 mg Metolazone (Zaroxolyn Tab*) 2.5 mg PO DAILY [facility] Last Admin: 12/19/18 08:39 Dose: 2.5 mg Metoprolol Succinate (Toprol Xl Tab*) 100 mg PO BEDTIME [facility] Last Admin: 12/18/18 20:22 Dose: 100 mg Mometasone Furoate (Asmanex 220 Mcg Mdi *) 2 puff INH QPM [facility] Last Admin: 12/18/18 20:05 Dose: 2 puff Morphine Sulfate (Ms Contin(*)) 30 mg PO TID PRN PRN Reason: PAIN Last Admin: 12/19/18 05:30 Dose: 30 mg Oxycodone HCl (Roxycodone Tab*) 5 mg PO BID PRN PRN Reason: PAIN Last Admin: 12/19/18 01:58 Dose: 5 mg Pregabalin (Lyrica Cap(*)) 75 mg PO TID PRN PRN Reason: PAIN Last Admin: 12/19/18 05:30 Dose: 75 mg Senna (Senokot 8.6 Mg Tab*) 1 tab PO BEDTIME PRN PRN Reason: CONSTIPATION Last Admin: 12/19/18 08:39 Dose: 1 tab Spironolactone (Aldactone Tab*) 50 mg PO DAILY [facility] Last Admin: 12/19/18 08:40 Dose: 50 mg Tiotropium [place] (Spiriva Respimat 2.5 Mcg) 2 puff INH DAILY [facility] Last Admin: 12/19/18 08:01 Dose: 2 puff Torsemide (Demadex*) 40 mg PO 0600,1400 [facility] Last Admin: 12/19/18 15:45 Dose: 40 mg Warfarin Sodium (Coumadin Tab(*)) 7.5 mg PO SuWe@1700 [facility] Last Admin: 12/18/18 17:45 Dose: 7.5 mg Warfarin Sodium (Coumadin Tab(*)) 3.75 mg PO MoTuThFrSa@1700 [facility] Last Admin: 12/17/18 17:27 Dose: 3.75 mg Vital Signs - 8 hr 12/19/18 12/19/18 11:15 15:15 Temperature 97.7 F 97.0 F Pulse Rate 66 67 Respiratory 18 18 Rate Blood Pressure 114/54 150/72 (mmHg) O2 Sat by Pulse 98 96 Oximetry Oxygen Devices in Use Now: Nasal Cannula Appearance: appears older than stated age, NAD, alert and interactive Eyes: No Scleral Icterus Ears/Nose/Mouth/Throat: Clear Oropharnyx, Mucous Membranes Moist Neck: NL Appearance and Movements; NL JVP, Trachea Midline Respiratory: Symmetrical Chest Expansion and Respiratory Effort, Clear to Auscultation Cardiovascular: - - irreg irreg, no mgr Abdominal: NL Sounds; No Tenderness; No Distention, No Hepatosplenomegaly Extremities: - - wrinkling, at most trace edema b/l Neurological: Alert and Oriented x 3 Result Diagrams: 12/17/18 09:21 12/19/18 05:29 Microbiology and Other Data: Microbiology 12/14/18 10:54 Aerobic Blood Culture - Preliminary Blood Venous No Growth Day 2 Anaerobic Blood Culture - Preliminary No Growth Day 2 12/14/18 10:47 Aerobic Blood Culture - Preliminary Blood Venous No Growth Day 2 Anaerobic Blood Culture - Preliminary No Growth Day 2 12/14/18 13:15 Urine Culture - Final Urine No Growth (<1,000 CFU/mL) 12/14/18 23:06 Legionella Urinary Antigen - Final Urine Negative Legionella Antigen Streptococcus pneumoniae Ag Screen - Final Negative S. pneumo Antigen 12/14/18 13:00 Nasal Screen MRSA (PCR) - Final Nasal Mrsa Not Detected Assess/Plan/Problems-Billing Assessment: 58M with NICM/HFpEF, COPD on home O2 3L, afib, HTN, DM2 on insulin, CKD, seronegative RA and chronic pain on opioids, morbid obesity, NEAL on CPAP, presents with HF exacerbation. - Patient Problems (1) Pulmonary edema Comment: and LE edema - HFpEF exacerbation. TTE without new changes from prior. Responded well to furosemide IV. - switch to torsemide 40mg bid - cont home spironolactone (2) COPD (chronic obstructive pulmonary disease) Comment: Stable with no s/s exacerbation; CXR without infiltrate -switch Incruse to Spiriva (formulary); nebs prn -O2 dependent on 3L NC at home and inpatient, SaO2 goal 88-92% (3) Anxiety Comment: - cont escitalopram (4) Atrial fibrillation Comment: -Rate controlled -Continue metopolol and warfarin. (5) HTN (hypertension) Comment: -currently on metoprolol, amlodipine, spironolactone, with BP at goal - holding home hydralazine, aliskarin (6) NEAL (obstructive sleep apnea) Comment: -Continue home CPAP use (7) Seronegative rheumatoid arthritis Comment: - cont chronic opioid therapy (8) Type 2 diabetes mellitus Comment: - cont glargine - insulin sliding scale - cont pregabalin for neuropathy (9) DVT prophylaxis Comment: - on warfarin
[2018-12-19] MEDS: Atorvastatin* 40 MG TAB PO SCH (17:40)
[2018-12-19] MEDS: Warfarin TAB(*) 7.5 MG PO SCH (17:47)
[2018-12-19] MEDS: Mometasone 220 MCG MDI INH SCH (19:18)
[2018-12-19] MEDS: Metoprolol Succinate XL TAB* 100 MG PO SCH (21:41)
[2018-12-20] MEDS: Torsemide TAB* 20 MG PO SCH (05:20)
[2018-12-20] MEDS: oxyCODONE TAB* 5 MG TAB PO PRN (05:24)
[2018-12-20] MEDS: Magnesium Hydroxide LIQ* 30 ML UDC PO PRN (05:25)
[2018-12-20] MEDS: SPIRIVA Respimat* (tiotropium) 2.5 mcg/inh Inhaler INH SCH (07:30)
[2018-12-20] MEDS: Morphine TAB Extended Release (*) 30 MG TAB.ER PO PRN (08:52)
[2018-12-20] MEDS: metFORMIN* 500 MG TAB PO SCH (08:52)
[2018-12-20] MEDS: amLODIPine TAB* 5 MG PO SCH (08:53)
[2018-12-20] MEDS: Metolazone TAB* 5 MG PO SCH (08:53)
[2018-12-20] MEDS: Spironolactone TAB* 25 MG PO SCH (08:53)
[2018-12-20] MEDS: Escitalopram * 10 MG TAB PO SCH (08:53)
[2018-12-20] MEDS: Insulin GLARGINE(*) 1 UNITS UNIT SUBCUT SCH (08:54)
[2018-12-20] MEDS: Insulin LISPRO* 1 UNITS UNIT SUBCUT SCH ×2 (08:55→12:39)
[2018-12-20 08:58] LABS: BUN/Creatinine Ratio 46.7 (8-20); Calcium 9.9 mg/dL (8.6-10.3); EGFR African American 65.7 (>60); EGFR Non-African American 54.3 (>60); Potassium 3.9 mmol/L (3.5-5.0)
[2018-12-20] MEDS: Pregabalin CAP(*) 25 MG PO PRN (12:43)
[2018-12-20 16:45] VITALS: BP 116/61
--- NOTE | 2018-12-20 17:13 | DS ---
Amended report to correct patient account number. CC: Dr. Torres Do * DISCHARGE SUMMARY: DATE OF ADMISSION: 12/14/18 DATE OF DISCHARGE: 12/20/18 PRIMARY CARE PROVIDER: Dr. Torres Do. PRIMARY DIAGNOSIS: Heart failure exacerbation. SECONDARY DIAGNOSES: 1. Hypertension. 2. Chronic atrial fibrillation. 3. Insulin-dependent diabetes. 4. Obstructive sleep apnea. 5. Chronic respiratory failure requiring home O2. 6. Chronic kidney disease. 7. Seronegative rheumatoid arthritis. DISCHARGE MEDICATIONS: 1. Torsemide 40 mg daily. 2. Metolazone 2.5 mg daily. 3. Spironolactone 50 mg daily. 4. Metoprolol succinate 50 mg nightly. 5. Amlodipine 10 mg daily. 6. Insulin glargine 50 units at bedtime. 7. Metformin 1000 mg twice a day. 8. Glimepiride 4 mg twice a day. 9. Warfarin 7.5 mg daily. 10. Morphine sulfate 30 mg 3 times a day as needed for pain. 11. Oxycodone 5 mg twice a day as needed for severe pain. 12. Milk of magnesia 30 mL twice a day as needed for constipation. 13. Senna 1 tablet at bedtime as needed for constipation. 14. Polyethylene glycol 17 g daily. 15. Pregabalin 75 mg 3 times a day. 16. Fluticasone inhaler 2 puffs twice a day. 17. Umeclidinium (Incruse Ellipta) 1 puff inhalation daily. 18. Sarilumab 200 mg every 2 weeks. 19. Atorvastatin 40 mg in the evening. 20. Escitalopram 10 mg daily. 21. Aspirin 81 mg daily. 22. Acetaminophen 975 three times a day as needed for pain. 23. Magnesium oxide 400 mg twice a day. 24. Folic acid 1 mg daily. 25. Fluticasone nasal spray to both nares daily. 26. Combivent Respimat 1 puff 4 times a day as needed for shortness of breath. HISTORY OF PRESENT ILLNESS: Mr. Cordon is a 58-year-old man with COPD, on home O2; heart failure, preserved ejection fraction; seronegative rheumatoid arthritis with chronic pain; hypertension; diabetes type 2, on insulin; AFib, on warfarin; chronic kidney disease; morbid obesity; NEAL, on CPAP, who is presenting with 2- to 3-week history of progressive dyspnea. The patient denies fevers, chills, productive cough, chest pain, or other symptoms suggestive of infection. HOSPITAL COURSE: In the emergency room, the patient was found to have severe hypoxemia requiring high-flow humidified nasal O2 with chest x-ray showing pulmonary edema. EKG showed no evidence of ischemic changes. He was admitted to the ICU given increased oxygen requirements and the need for aggressive diuresis. He was initially started on cefepime for empiric treatment of community-acquired pneumonia; however, his urinary antigens resulted negative and the patient was without fever. His leukocytosis resolved after fluids. His antibiotics were stopped 3 days prior to discharge and the patient had only continued improvement in his shortness of breath with diuresis. He had no fevers or return of leukocytosis throughout admission. After IV diuresis, the patient reports that his feet are the smallest he has ever seen them. His shortness of breath resolved, at rest, and was significantly improved on ambulation with physical therapy. He was switched to a dose of torsemide 40 mg twice a day; however, his BMP was suggestive of prerenal picture on this increased dose, so he was resumed back at his home dose of torsemide 40 mg in the morning, to take a second dose only if needed for increasing weight. The patient did state that nonadherence to his home diuretics and recent high-salt diet may have contributed to heart failure exacerbation, and he understands importance of adherence to medication therapy and good diet to prevent rehospitalization. On day of discharge, the patient reported significant improvement in his shortness of breath with resolution of his lower extremity edema. He denied significant orthopnea. He denied fevers, chills, cough, chest pain, dysuria. The patient did report that his Andre insertion in the ER was traumatic and he has experienced intermittent urinary hesitancy since removal of Andre; however, he has been able to empty his bladder completely and he denies dysuria or hematuria. The patient reported significant chronic rheumatoid arthritis pain that was not worse during this admission, but it does limit his ambulation; so after evaluation with Physical Therapy, he was deemed an appropriate candidate for subacute rehab. On the day of discharge, the patient was recommended to go to [facility]. He refused placement to subacute rehab preferring to go home with home physical therapy. He understands indication for subacute rehab and risks of going home. Of note, pt was occasionally inappropriate with staff, for eg: making sexually suggestive comments with female staff. REVIEW OF SYSTEMS: A complete 10-point review of systems was performed on the day of discharge and pertinent positives and negatives are listed in the hospital course. PHYSICAL EXAMINATION: Afebrile, heart rate 77, blood pressure 126/66, oxygen saturation 100% on room air with respiratory rate 20. In general, he is a somewhat disheveled and malodorous man, who is in no acute distress, who is alert and interactive Neck: Unable to appreciate JVP given habitus. HEENT: With moist mucous membranes. Pulmonary: Distant breath sounds, but without wheeze or crackles. Good air movement. No increased work of breathing. Heart : Irregularly irregular. No murmurs, gallops, or rubs. Abdomen: Protuberant, soft, nontender, nondistended. Extremities: Warm and well perfused with trace edema over ankles, symmetric, significant wrinkling. Neuro: A and O x3. No focal weakness. DIAGNOSTIC STUDIES/LAB DATA: CBC with hemoglobin 12.4, which is improved from the patient's prior baseline, with MCV 98. BMP with sodium 132 and BUN/creatinine 63/1.35. Hemoglobin A1c 9.0. Transthoracic echocardiogram: Left ventricle with normal cavity size. Wall thickness is mildly to moderately increased. Systolic function is normal with estimated EF 55% to 60%. No regional wall motion abnormalities. Mitral valve without significant regurg. Left atrium moderately dilated. Chest x-ray after IV diuresis with cardiogenic pulmonary edema, likely with pleural effusion on the left. Compared to prior studies, there has been improvement in the degree of aeration. Venous Doppler studies without evidence of left lower extremity DVT. DISCHARGE PLAN: The patient is to return home, which is his wish despite our team recommending subacute rehab. He should continue to follow up closely with his primary care physician and lead designer for management of his chronic medical problems including heart failure and COPD. He was educated to continue to monitor his blood pressure, daily weight and blood glucose at home and to record this log and bring it to his outpatient providers for titration of his home medications given his uncontrolled diabetes, recent heart failure exacerbation, and recent changes in his hypertension medications. Of note, the patient was not continued on his home hydralazine or aliskiren. He was only continued on metoprolol, amlodipine, and spironolactone with his blood pressures remaining at goal, so he was instructed to not continue these as an outpatient. His blood sugars were difficult to control in the hospital and his A1c did show he was above his goal with result 9.0%. He did have slight increase in his creatinine prior to discharge to 1.35, so his torsemide was only continued as once daily rather than twice a day and he was asked to obtain a basic metabolic panel 3 days after discharge and follow this up with his primary care physician. He should eat a healthy diet, low in processed foods and low in carbohydrate. The patient was instructed on return precautions, which include, but are not limited to recurrence of severe shortness of breath or new symptoms of chest pain or fever. He should resume activity as tolerated and he was encouraged to follow an exercise program. He will be referred to home PT. DISPOSITION: To home. CONDITION: Improved. TIME SPENT: Approximately 60 minutes was spent on discharge of this patient, more than half of which was spent with care coordination at bedside for interview and exam. [id number]/[facility] #: [id number] [place]
[2018-12-21] MEDS ORDERED: Torsemide TAB* 20 MG PO SCH (06:00)
--- NOTE | 2019-01-10 09:12 | PN ---
Progress Note - Progress Note Date of Service: 12/15/18 Note: This is an addendum to the progress note on 12/15. The diagnosis for the encounter is congestive heart failure.
== END 2018-12-20 16:30 | disposition home health service (06) | DRG 194 ==
LOC: ED 10:33 → ICU 12:24 → MED 12-15 17:32
PROVIDERS: ADMIT Internal Medicine Critical Care Medicine; ATTEND Internal Medicine
PROC: 5A09357 Assistance with Respiratory Ventilation, Less than 24 Consecutive Hours, Continuous Positive Airway Pressure (ICD-10-PCS; principal; 2018-12-14)
DX: I13.0 Hypertensive heart and chronic kidney disease with heart failure and stage 1 through stage 4 chronic kidney disease, or unspecified chronic kidney disease (principal); I50.33 Acute on chronic diastolic (congestive) heart failure; J96.21 Acute and chronic respiratory failure with hypoxia; I48.20 Chronic atrial fibrillation, unspecified; Z68.42 Body mass index [BMI] 45.0-49.9, adult; J44.9 Chronic obstructive pulmonary disease, unspecified; M06.9 Rheumatoid arthritis, unspecified; G89.29 Other chronic pain; E11.22 Type 2 diabetes mellitus with diabetic chronic kidney disease; E66.01 Morbid (severe) obesity due to excess calories; G47.33 Obstructive sleep apnea (adult) (pediatric); R39.11 Hesitancy of micturition; N18.3 Chronic kidney disease, stage 3 (moderate); E78.00 Pure hypercholesterolemia, unspecified; E11.51 Type 2 diabetes mellitus with diabetic peripheral angiopathy without gangrene; K76.0 Fatty (change of) liver, not elsewhere classified; M19.90 Unspecified osteoarthritis, unspecified site; F41.9 Anxiety disorder, unspecified; F32.9 Major depressive disorder, single episode, unspecified; I42.8 Other cardiomyopathies; Z99.81 Dependence on supplemental oxygen; Z79.4 Long term (current) use of insulin; Z79.01 Long term (current) use of anticoagulants; Z79.82 Long term (current) use of aspirin; Z88.8 Allergy status to other drugs, medicaments and biological substances; Z87.891 Personal history of nicotine dependence; Z87.01 Personal history of pneumonia (recurrent)
CPT/HCPCS: 36415; 71045; 71046; 80048; 80053; 81003; 81015; 82550; 82553; 82607; 82803; 83036; 83605; 83735; 83880; 84484; 85025; 85027; 85610; 85730; 86140; 87040; 87086; 87641; 87899; 93005; 93306; 94640; 94660; 96374; 96375; 99284; A9270-GY; C8929; G8978-GP-CJ; G8978-GP-CK; G8979-GP-CH; J0456; J0692; J0696; J1940; J2543; J2930; J3475; J3535

== ENCOUNTER 2019-03-14 17:07 | Inpatient (IN) | payer OTHER ==
[2019-03-14] MEDS ORDERED: Clindamycin 600 MG/D5W BAG(*) 600 MG/50 ML BAG IV ONE (17:45)
--- NOTE | 2019-03-14 17:49 | ED ---
Lower Extremity - HPI Summary HPI Summary: This pt is a 58 y/o male presenting to [facility] c/o left leg pain, redness, and swelling since last night. Pt reports he had left leg redness a couple of weeks ago but this resolved. He notes last night he had a visiting nurse see him and told him his leg looked better. Last night around 1900 pt felt lightheaded and noticed he had left leg redness and pain. He states today redness has spread to his upper left leg. He c/o left calf pain and left leg pain. Pt reports usually his left leg is more swollen than the right. PMHx includes DM, CHF, HTN, hypercholesterolemia, pericardial effusion, COPD, sleep apnea, acute renal failure. Pt is anticoagulated on Warfarin and on diuretics. He takes Lyrica 70 mg for his chronic feet pain, 30 mg of ER morphine, and 5 mg of oxycodone PRN. - History of Current Complaint Chief Complaint: EDGeneral Stated Complaint: LEG PAIN PER EMS Time Seen by Provider: 03/14/19 17:14 Hx Obtained From: Patient Mechanism Of Injury: Other - no trauma Onset of Pain: Hours Onset/Duration: Hours Severity Currently: Severe Pain Intensity: 10 Pain Scale Used: 0-10 Numeric Timing: Lasting Hours Location: Is Discrete @ - left leg Associated Signs And Symptoms: Positive: Swelling, Redness. 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] Home Medications: Home Medications Aliskiren TAB* [Tekturna TAB*] 150 mg PO DAILY 03/14/19 [History Confirmed 03/14] Aspirin EC TAB* [Ecotrin EC Low Dose 81 MG*] 81 mg PO DAILY 03/14/19 [History Confirmed 03/14/19] Colchicine* [Colcrys*] 0.6 mg PO DAILY PRN 03/14/19 [History Confirmed 03/14/19] Magnesium Oxide TAB* [MagOx 400 TAB*] 400 mg PO BID 03/14/19 [History Confirmed 03/14/19] Methotrexate TAB* 15 mg PO WEEKLY 03/14/19 [History Confirmed 03/14/19] Torsemide TAB* [Demadex 20 MG*] 40 mg PO DAILY 03/14/19 [History Confirmed 03/14] Umeclidinium 62.5 MDI(NF) [Incruse ELLIPTA MDI (NF)] 1 puff INH DAILY 03/14/19 [ History Confirmed 03/14/19] PMH/Surg Hx/FS Hx/Imm Hx Endocrine/Hematology History: Reports: Hx Anticoagulant Therapy, Hx Diabetes Denies: Hx Anemia, Hx Unexplained Bleeding Cardiovascular History: Reports: Hx Cardiomegaly - dilated cardiomyopathy, Hx Congestive Heart Failure - Currently, Hx Hypercholesterolemia, Hx Hypertension, Hx Peripheral Vascular Disease, Other Cardiovascular Problems/Disorders - HX PERICARDIAL EFFUSION Denies: Hx Aneurysm, Hx Angina, Hx Angioplasty, Hx Auto Implanted Cardiovert Defib, Hx Cardiac Arrest, Hx Congenital Heart Disease, Hx Coronary Artery Disease, Hx Deep Vein Thrombosis, Hx Embolism, Hx Hypotension, Hx Pacemaker/ICD , Hx Rheumatic Fever, Hx Syncope, Hx Valvular Heart Disease Respiratory History: Reports: Hx Asthma, Hx Chronic Obstructive Pulmonary Disease (COPD), Hx Pneumonia, Hx Sleep Apnea - CPAP, 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 Denies: Hx Chronic Bronchitis, Hx Cystic Fibrosis, Hx Lung Cancer, Hx Pleural Effusion, Hx Pulmonary Edema, Hx Pulmonary Embolism, Hx Seasonal Allergies GI History: Reports: Other GI Disorders - hx fatty liver History: Reports: Hx Acute Renal Failure, Other Problems/Disorders - hx Proteinuria, problems with erection Denies: Hx Benign Prostatic Hyperplasia, Hx Chronic Renal Failure, Hx Dialysis, Hx Kidney Infection, Hx Kidney Stones Musculoskeletal History: Reports: Hx Arthritis, Hx Orthopedic Injury Denies: Hx Back Problems, Hx Bursitis, Hx Congenital Bone Abnormalities, Hx Fibromyalgia, Hx Gout, Hx Osteoporosis, Hx Scoliosis, Hx Tendonitis Sensory History: Reports: Hx Contacts or Glasses, Hx Vision Problem Denies: Hx Cataracts, Hx Eye Injury, Hx Eye Prosthesis, Hx Glaucoma, Hx Legally Blind, Hx Macular Degeneration, Hx Deafness, Hx Hearing Aid, Hx Hearing Problem, Other Sensory Impairments Opthamlomology History: Reports: Hx Contacts or Glasses, Hx Vision Problem Denies: Hx Cataracts, Hx Eye Injury, Hx Eye Prosthesis, Hx Glaucoma, Hx Legally Blind, Hx Macular Degeneration, Other Sensory Impairments Psychiatric History: Reports: Hx Anxiety, Hx Depression Denies: Hx Attention Deficit Hyperactivity Disorder, Hx Eating Disorder, Hx Panic Disorder, Hx Post Traumatic Stress Disorder, Hx Inpatient Treatment, Hx Community Mental Health Tx, Hx Schizophrenia, Hx Bipolar Disorder, Hx Suicide Attempt, Hx of Violent Episodes Against Others, Hx Substance Abuse, Other Psychiatric Issues/Disorders - Cancer History Hx Chemotherapy: No Hx Radiation Therapy: No Hx Palliative Cancer Treatment: No - Surgical History Surgical History: Yes Surgery Procedure, Year, and Place: L ankle surg w/screws Hx Anesthesia Reactions: No Infectious Disease History: No Infectious Disease History: Denies: Hx Clostridium Difficile, Hx Hepatitis, Hx Human Immunodeficiency Virus (HIV), Hx of Known/Suspected MRSA, Hx Shingles, Hx Tuberculosis, Hx Known/ Suspected VRE, Hx Known/Suspected VRSA, History Other Infectious Disease, Traveled Outside the [place] in Last 30 Days - Family History Known Family History: Positive: Cardiac Disease, Diabetes - Social History Alcohol Use: None Alcohol Amount: 4-5 drinks per week Substance Use Type: Reports: None Substance Use Comment - Amount & Last Used: very infrequently Smoking Status (MU): Former Smoker Type: Cigarettes Amount Used/How Often: 2-3 cigarettes per day Length of Time of Smoking/Using Tobacco: 28 Have You Smoked in the Last Year: Yes Review of Systems Negative: Fever Musculoskeletal: Other - POSITIVE: left leg pain, left calf pain Positive: Edema - left leg Skin: Other - POSITIVE: left leg redness All Other Systems Reviewed And Are Negative: Yes Physical Exam - Summary Physical Exam Summary: Constitutional: Well-developed, Obese Skin: Warm, Dry, erythema to LLE, blister L foot. HENT: Normocephalic; Atraumatic Eyes: Conjunctiva normal Neck: Musculoskeletal ROM normal neck. (-) JVD, (-) Stridor Cardio: Rhythm regular, rate normal, Heart sounds normal; Intact distal pulses; Radial pulses are 2+ and symmetric. (-) Murmur Pulmonary/Chest wall: Effort normal. (-) Respiratory distress, (-) Wheezes, (-) Rales Abd: Soft, (-) tenderness, (-) Distension, (-) Guarding, (-) Rebound Musculoskeletal: Bilateral lower extremity edema, left > right. Left leg erythema from the foot to the proximal thigh with a blister of the lateral fifth MTP base. Neuro: Alert, Oriented x3 Psych: Mood and affect Normal Triage Information Reviewed: Yes Vital Signs On Initial Exam: Initial Vitals Temp Pulse Resp BP Pulse Ox 97.8 F 80 18 129/61 100 03/14/19 17:17 03/14/19 17:17 03/14/19 17:17 03/14/19 17:17 03/14/19 17:17 Vital Signs Reviewed: Yes Procedures - Sedation Patient Received Moderate/Deep Sedation with Procedure: No Diagnostics - Vital Signs Vital Signs Temp Pulse Resp BP Pulse Ox 03/14/19 17:19 74 129/61 100 03/14/19 17:18 77 100 03/14/19 17:17 97.8 F 80 18 129/61 100 - Laboratory Result Diagrams: 03/14/19 18:23 03/14/19 18:23 Lab Statement: Any lab studies that have been ordered have been reviewed, and results considered in the medical decision making process. Re-Evaluation - Re-Evaluation First Eval Re-Evaluation Time: 18:50 Comment: BG in 400's, will give 5 subq insulin, 500 cc fluids slowly given hx CHF (EF 50% on recent echo). Plan for admit to [facility] for extensive cellulitis in setting of uncontrolled DM. Lower Extremity Course/Dx - Course Course Of Treatment: 59 y/o male w hx DM, COPD, CHF on home O2, morbid obesity, p/w left lower extremity erythema, and swelling. Physical exam consistent with cellulitis, low suspicion for DVT. Patient was given 1 dose of clindamycin IV, labs notable for elevated white count and lactic acid of 2.3. Patient given 5 of subcutaneous insulin, 500 cc of fluid slowly given reported history of heart failure. Plan for admission to hospital - Diagnoses Differential Diagnosis/HQI/PQRI: Positive: Cellulitis, DVT, Phlebitis Provider Diagnoses: Cellulitis of left leg - Physician Notifications Discussed Care Of Patient With: Adam Alex Time Discussed With Above Provider: 19:10 Instructed by Provider To: Admit As Inpatient Discharge ED - Sign-Out/Discharge Documenting (check all that apply): Patient Departure - Discharge Plan Condition: Stable Disposition: ADMITTED TO [facility] Referrals: Torres oD MD [Primary Care Provider] - - Billing Disposition and Condition Condition: STABLE Disposition: Admitted to [facility] - Attestation Statements Document Initiated by Scribe: Yes Documenting Scribe: Shannan Dougherty Provider For Whom Scribe is Documenting (Include Credential): Lowell Roberts MD Scribe Attestation: I, Shannan Dougherty, scribed for Lowell Roberts MD on 03/14/19 at 1915. Scribe Documentation Reviewed: Yes Provider Attestation: The documentation as recorded by the scribeShannan accurately reflects the service I personally performed and the decisions made by me, Lowell Roberts MD Status of Scribe Document: Viewed
[2019-03-14] MEDS ORDERED: Morphine 4 MG/ML VIAL (1 ml) 4 MG/ML VIAL IV ONE (18:31)
[2019-03-14 18:32] LABS: ABS Lymphocytes 0.3 10^3/ul (1.0-4.8); ABS Monocytes 0.9 10^3/ul (0-0.8); ABS Neutrophils 10.2 10^3/ul (1.5-7.7); Eosinophil % 0.1 %; Hematocrit 37 % (42-52); Hemoglobin 12.5 g/dL (14.0-18.0); Lymphocyte % 2.7 %; Mean Corpuscular HGB Conc 34 g/dL (31-36); Mean Corpuscular Hemoglobin 33 pg (27-31); Mean Corpuscular Volume 97 fL (80-94); Mean Platelet Volume 8.9 fL (7.4-10.4); Nucleated Red Blood Cells % 0.1; Platelet Count 142 10^3/uL (150-450); Red Blood Count 3.83 10^6 /uL (4.18-5.48); Red Cell Distribution Width 18 % (10-15); White Blood Count 11.4 10^3/uL (3.5-10.8)
[2019-03-14 18:52] LABS: Albumin 3.7 g/dL (3.2-5.2); Albumin/Globulin Ratio 1.4 (1-3); BUN/Creatinine Ratio 32.9 (8-20); Calcium 9.2 mg/dL (8.6-10.3); EGFR African American 57.3 (>60); EGFR Non-African American 47.3 (>60); Globulin 2.7 g/dL (2-4); Potassium 4.5 mmol/L (3.5-5.0); Total Bilirubin 1.3 mg/dL (0.2-1.0); Total Protein 6.4 g/dL (6.4-8.9)
[2019-03-14] MEDS ORDERED: Insulin REGULAR(*) 1 UNITS UNIT SUBCUT ONE (18:52)
[2019-03-14] MEDS ORDERED: NS 0.9% 500 ML* 500 ML IV ONE (18:53)
--- OUTSIDE RECORDS SUMMARY | 2019-03-14 18:54 | XMS REPORT | Summary of Care ---
:1960 Author Organization [facility] Address [address] [place] [address] Care Team Providers Name Role Phone Torres Do Primary Care Provider Elia Esparza OD Primary Marking Devices Assembler/Bathroom Tiling Professional Mirna Germain RNdocumentation specialist Reason for Referral Durable Medical Equipment (Routine) Status Reason Specialty Diagnoses / Referred By Referred To Procedures Contact Contact Pending Review Diagnoses Rheumatoid arthritis (HCC) Torres Do MD [address] [place] [address] Reason for Visit Reason Comments Transitional Care Management pt presents for TCM from admission to [facility] Encounter Details Date Type Department Care Team Description 01/15/2019 Office Visit [facility] Torres Do MD Acute on chronic diastolic heart failure (HCC) (Primary Dx); Practice [address] [facility] [place] 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); [address] [place] [address] Rheumatoid arthritis involving multiple sites with positive rheumatoid factor ([facility]); [place] [address] Class 3 obesity with alveolar hypoventilation, serious comorbidity, and body mass index (BMI) of 45.0 to 49.9 in adult ([facility]); [phone] Essential hypertension; Type 2 diabetes mellitus with diabetic nephropathy, with long-term current use of insulin ([facility]); Rheumatoid arthritis (HCC) Allergies Active Allergy Reactions Severity Noted Date Comments Clonidine Hives 12/22/2016 Skin irritation with patches Tiotropium Perry Other 04/04/2007 dizzy Monohydrate documented as of this encounter (statuses as of 02/09/2019) Medications Medication Sig Dispensed Refills Start Date End Date Status Methotrexate 2.5 MG Take 1 Tab by 6 Tab 0 03/11/2013 Active Oral Tab mouth DIRECTED. 15 mg po weekly Blood Glucose Brand:true test 100 Strip 0 01/30/2014 Active Monitoring Suppl strips Dx: 250.00 (BLOOD GLUCOSE TEST Insulin dependent STRIPS STRP) Test Blood Glucose 2 time(s) A DAY fexofenadine (AMERICA) Take 1 Tab by 60 Tab 0 10/11/2015 Active 60 MG Oral Tab mouth TWICE DAILY. Additional information Patient taking differently: 60 mg Oral BID PRN, Reported on 07/07/2016 10:17 AM budesonide-formoterol fumarate Take 2 INHL by 0 Active (SYMBICORT) 80-4.5 MCG/ACT inhalation TWICE Inhalation Aerosol DAILY. umeclidinium bromide (INCRUSE Take 1 INHL by 0 Active ELLIPTA) 62.5 MCG/INH Inhalation inhalation DAILY. AEROSOL POWDER, BREATH ACTIVATED acetaminophen (TYLENOL) 500 MG Take 1,000 mg by 0 Active Oral Tab mouth EVERY SIX HOURS NEEDED for Pain. Lancets Does not apply Misc by Does not apply 100 Each 5 01/20/2017 Active route TWICE DAILY. Brand:*freestyle Dx:E11.65 triamcinolone 1 g by Topical route 454 g 0 01/22/2017 Active (KENALOG,ARISTOCORT) 0.1 % Apply TWICE DAILY. To shins externally Cream FREESTYLE TEST STRIPS In Vitro use as directed twice 200 Strip 5 2017 Active Strip a day FLOVENT HFA 110 MCG/ACT INHALE 2 PUFFS BY 1 Inhaler 5 11/12/2017 Active Inhalation Aerosol MOUTH TWICE A DAY Aspirin 81 MG Oral Tab Take 1 Tab by mouth 30 Tab 0 11/14/2017 Active DAILY. Insulin Pen Needle (PEN NEEDLES 1 Each by Injection 100 Each 3 12/25/2017 Active 06/01") 31G X 5 MM Does not apply route DAILY. Insulin Misc dependent diabetes albuterol-ipratropium (DUO-NEB) INHALE CONTENTS OF 1 360 mL 0 02/05/2018 Active 0.5-2.5 (3) MG/3ML Inhalation VIAL IN NEBULIZER Solution FOUR TIMES A DAY Magnesium Oxide 400 (240 Mg) MG take 1 tablet by 60 Tab 5 03/21/2018 Active Oral Tab mouth twice a day amLodipine (NORVASC) 10 MG Oral take 1 tablet by 30 Tab 5 07/09/2018 Active Tab mouth once daily Sarilumab (KEVZARA SC) Inject beneath the 0 Active skin. glimepiride (AMARYL) 4 MG Oral TAKE 1 TABLET TWICE A 60 Tab 5 08/19/2018 Active Tab DAY Insulin Pen Needle 33G X 8 MM Inject 1 Each beneath 100 Each 3 08/21/2018 Active Does not apply Misc the skin EVERY BEDTIME. BD ultrafine III . E11.9 Last OV 07/12/18 warfarin (COUMADIN) 7.5 MG Oral Take 0.5-1 Tabs by 90 Tab 3 08/30/2018 Active TabIndications: Atrial mouth DAILY. 7.5mg fibrillation, unspecified type Sun and Wed. 3.75mg (HCC) remaining days of week escitalopram (LEXAPRO) 10 MG TAKE 1 TABLET BY 30 Tab 5 09/30/2018 Active Oral Tab MOUTH ONCE DAILY atorvastatin (LIPITOR) 40 MG TAKE 1 TABLET BY 90 Tab 3 10/14/2018 Active Oral TabIndications: Coronary MOUTH ONCE DAILY artery disease involving [place] coronary artery of [place] heart without angina pectoris metolazone (ZAROXOLYN) 2.5 MG Take 1 Tab by mouth 30 Tab 5 11/14/2018 Active Oral TabIndications: Essential EVERY OTHER DAY. hypertension Additional information Patient taking differently: 2.5 mg Oral DAILY, Reported on 01/15/2019 3:16 PM HORTENCIA COY 100 INJECT 150 UNITS 45 Each 2 11/14/2018 Active UNIT/ML Subcutaneous SUBCUTANEOUSLY AT Solution Pen-injector BEDTIME Spironolactone 50 MG TAKE 1 TABLET BY 30 Tab 2 11/27/2018 Active Oral Tab MOUTH ONCE DAILY foliC acid 1 MG Oral TAKE 1 TABLET BY 30 Tab 5 12/17/2018 Active Tab MOUTH ONCE DAILY fluticasone (FLONASE) INSTILL 2 SPARYS 16 g 5 12/25/2018 Active 50 MCG/ACT Nasal INTO EACH NOSTRIL Suspension ONCE DAILY torsemide (DEMADEX) 20 TAKE 2 TABLETS BY 90 Tab 0 01/10/2019 Active MG Oral TabIndications: MOUTH EVERY DAY Essential hypertension WITH 1 ADDITIONAL TABLET NEEDED DAILY FOR SWELLING AND INCREASED SHORTNESS OF BREATH polyethylene glycol TAKE 510 g 0 01/13/2019 Active (MIRALAX) Oral Powder 17GM(DISSOLVED IN WATER) BY MOUTH ONCE DAILY NEEDED FOR CONSTIPATION ipratropium-albuterol Take 1 Puff by 4 g 5 01/13/2019 Active (COMBIVENT RESPIMAT) inhalation EVERY 20-100 MCG/ACT SIX HOURS. Inhalation Aero Soln LORazepam (ATIVAN) 0.5 Take 1 Tab by 30 Tab 0 01/13/2019 Active MG Oral Tab mouth EVERY EIGHT HOURS NEEDED (anxiety). Max Daily Amount: 1.5 mg. OXYcodone TWICE DAILY 0 11/21/2017 Active (OXY-IR,OXY-FAST) 5 MG Oral Tab morphine (ORAMORPH SR, Take 1 Tab by 90 Tab 0 01/14/2019 Active MS CONTIN) 30 MG Oral mouth EVERY EIGHT Tab CR HOURS NEEDED (chronic pain). Max Daily Amount: 90 mg. metoprolol succinate Take 100 mg by 0 Active (TOPROL XL) 100 MG Oral mouth DAILY. TABLET SR 24 HR ipratropium-albuterol Take 1 Puff by 1 Inhaler 5 01/15/2019 Active (COMBIVENT RESPIMAT) inhalation FOUR 20-100 MCG/ACT TIMES DAILY. Inhalation Aero Soln pregabalin (LYRICA) 75 Take 1 Cap by 90 Cap 5 01/15/2019 Active MG Oral Cap mouth THREE TIMES DAILY. Max Daily Amount: 225 mg. Sennosides (SENNA) 8.6 Take 1 Tab by 30 Tab 5 01/15/2019 Active MG Oral Tab mouth EVERY BEDTIME. magnesium hydroxide Take 30 mL by 900 mL 0 01/15/2019 Active (MILK OF MAGNESIA PO mouth EVERY SUSP 400 MG/5 ML 180 BEDTIME NEEDED ML, ODD DOSES, ) 400 (constipation). MG/5ML Oral Suspension hydroxychloroquine Take 200 mg by 0 10/16/201412/19 Discontinued (PLAQUENIL) 200 MG Oral mouth TWICE DAILY. 0 Tab 19 guaifenesin (MUCINEX) Take 1 Tab by 28 Tab 1 02/24/201601/17 Discontinued 600 MG Oral TABLET SR mouth TWICE DAILY. 12/06 12 HR 19 metoprolol (LOPRESSOR) Take 1 Tab by 60 Tab 11 03/27/201812/19 Discontinued 50 MG Oral mouth TWICE DAILY. TabIndications: 19 Permanent atrial fibrillation hydrALAZINE take 1 tablet by 270 Tab 3 05/02/201801/18 Discontinued (APRESOLINE) 50 MG Oral mouth three times /20 Tab a day 19 metFORMIN HCL 1000 MG take 1 tablet by 60 Tab 5 07/09/201801/17 Discontinued Oral Tab mouth twice a day 10/05 (Reorder) 19 magnesium oxide TAKE 1 TABLET BY 60 Tab 5 09/02/201812/19 Discontinued (MAG-OX) 400 (241.3 Mg) MOUTH TWICE A DAY 0/20 MG Oral Tab 19 Aliskiren Fumarate 150 TAKE 1 TABLET BY 30 Tab 5 10/10/201801/18 Discontinued MG Oral Tab MOUTH ONCE DAILY 07/06 19 pregabalin (LYRICA) 75 Take 1 Cap by 90 Cap 0 01/13/201912/19 Discontinued MG Oral Cap mouth THREE TIMES 20 (Reorder) DAILY. Max Daily 19 Amount: 225 mg. Morphine Sulfate 30 MG Take 1 Cap by 90 Cap 0 01/13/201912/19 Discontinued Oral CAPSULE SR 24 HR mouth EVERY EIGHT 0/20 HOURS NEEDED 19 (pain). Max Daily Amount: 90 mg. colchicine (COLSALIDE) Take 1 Tab by 30 Tab 0 01/15/201901/17 Discontinued 0.6 MG Oral Tab mouth DAILY. 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 10/16/2013 Nephrosclerosis 06/22/2011 Pain in joint, multiple sites 06/22/2011 retirement current use of anticoagulant therapy 11/01/2010 Overview: Anticoagulant: warfarin Managed by: [facility] Referring Provider: Trevor Indication: Afib, permanent Target Range: 2.0-3.0 Duration: Indefinite Additional factors influencing anticoagulation: CHADS2 score of 2 for hypertension and diabetes [id number] score of 2 for hypertension and diabets Clopidogrel significantly increases bleeding risk Escitalopram increases warfarin level Spironolactone decreases warfarin effect Updated Referral 02/2014, 05/25/15, 08/25/16, 10/18/17 Updated ACS Orders: 03/02/14, 06/18/15, 09/01/16, Rotator cuff tear 01/16/2010 NEAL (obstructive sleep apnea) 11/16/2009 Dyslipidemia 11/16/2009 Restrictive lung disease 11/16/2009 Type 2 diabetes mellitus with diabetic nephropathy 11/29/2006 Essential hypertension 11/29/2006 Obesity 06/21/2006 RA (rheumatoid arthritis) OA (osteoarthritis) documented as of this encounter (statuses as of 02/09/2019) Resolved Problems Problem Noted Date Resolved Date Atrial fibrillation, persistent 01/29/2019 02/09/2019 Resides in retirement facility 07/04/2018 07/14/2018 Atrial fibrillation, unspecified type 05/25/2015 07/14/2018 Atrial fibrillation 11/01/2010 07/14/2018 Encounter for therapeutic drug monitoring 11/01/2010 11/10/2010 BMI 45.0-49.9, adult 10/10/2010 06/22/2011 Pneumonia, organism unspecified(486) 04/04/2007 11/16/2009 Obstructive sleep apnea (adult) (pediatric) 11/29/2006 04/04/2007 Tobacco use disorder 11/29/2006 11/16/2009 Alcohol abuse, unspecified 06/21/2006 04/04/2007 BMI 40.0-44.9, adult 07/14/2018 Overview: This patient's BMI This patient's BMI has been calculated and is above average, and BMI management plan is completed. General patient education discussion including: weight loss link to reduction of r isk factors for cardiac and other diseases, importance of long-term maintenance treatment in weight loss, and accomplish with exercise as tolerated and diet control documented as of this encounter (statuses as of 02/09/2019) Immunizations Name Administration Dates Next Due Influenza (IM) Preservative Free 04/24/2018, 01/08/2017, 11/24/2015, 12/22/2014, 12/21/2012, 12/18/2011, 01/02/2011, 01/12/2010, 01/19/2009, 02/25/2008 Influenza Vaccine Whole 12/15/2013 PNEUMOCOCCAL POLYSACCHARIDE VACCINE 02/25/2008 Pneumococcal Conjugate(13 Valent) 12/25/2014 TDAP Vaccine 06/25/2008 ZOSTER (SHINGRIX) VACCINE 08/03/2018 documented as of this encounter Social History Tobacco Use Types Packs/Day Years Used Date Former Smoker Cigarettes 1 30 Smokeless Tobacco: Never Used Alcohol Use Drinks/Week oz/Week Comments Yes 40 Standard drinks or equivalent 33.3 8 mixed drinks Sex Assigned at Date Recorded Not on file Job Start Date Occupation Industry Not on file Not on file Not on file Travel History Travel Start Travel End No recent travel history available. documented as of this encounter Last Filed Vital Signs Vital Sign Reading Time Taken Comments Blood Pressure 120/62 01/15/2019 3:18 PM EDT Pulse 60 01/15/2019 3:18 PM EDT Temperature - - Respiratory Rate - - Oxygen Saturation 99% 01/15/2019 3:18 PM EDT Inhaled Oxygen Concentration - - Weight 148.8 kg (328 lb) 01/15/2019 3:18 PM EDT Height 175.3 cm (5' 9") 01/15/2019 3:18 PM EDT Body Mass Index 48.44 01/15/2019 3:18 PM EDT documented in this encounter Patient Instructions Patient InstructionsKTorres kim MD - 01/15/2019 3:00 PM EDTTry the colchicine for the wrist Th bottle says 1 a day but supposed to be 1 pill 2 x a day documented in this encounter Progress Notes Torres Do MD - 01/15/2019 3:00 PM EDT PATIENT: Jonah Cordon : 1960 DATE OF SERVICE: 01/15/2019 CHIEF COMPLAINT: Chief Complaint Patient presents with Transitional Care Management pt presents for TCM from admission to [facility] Subjective HISTORY OF PRESENT ILLNESS: oJnah Cordon is a 58-y.o. male. In for hospital follow up. TCM call was not made and not seen within 2 weeks due to not feeling well . Admitted 12/14 and discharged 12/20. Diagnosis was CHF exacerbation Patient with a long hx of obesity , copd -likely a rheumatologic lung component and diastolic heart failure on home oxygen. He came to ER with several week history of worsening SOB. His oxygen was low and CXR consistent with CHF WBC was slight high but he ended up not having pneumonia . EKG normal , he was sent to ICU and treated with iv diuretics and his breathing and peripheral edema improved They tried him on torsemide 40 bid but he became pre renal and went back to 40 mg a day his home dose PT saw him and recommended rehab but he declined it and wanted to do out patient PT a1c was up to 9.0 ECHO preserved EF without significant valvular abnormalities He was instructed to stop hydralazine and aliskkiren Some discrepency in the metoprolol. We think he was on bid 50 and was changed to 100xl But the too says 50 daily and we had torsemide 20 bid sometimes a 3rd but they tried 40 bid and cut to 40 daily and takes zaroxolyn most days but instructed to take daily He is using the duoneb bid He is using the basaglar 50-70 nits but Rx written 150 to make sure he not run out Past Medical History: Diagnosis Date Alcohol abuse, unspecified 06/21/2006 BMI 40.0-44.9, adult ([facility]) CAD (coronary artery disease) 2017 stent LAD Cardiac dysrhythmia Hearing problem Hyperlipidemia 12/28 209.35.125 and 178.33.72 tri 364 06/29 Lung nodule 09/30 6-12 mo 03/02 stable 1 year OA (osteoarthritis) knee hip Obesity, unspecified 06/21/2006 Obstructive sleep apnea (adult) (pediatric) 11/29/2006 Pneumonia 2006 Proteinuria RA (rheumatoid arthritis) ([facility]) seronegative Restrictive lung disease 2008 PFT no obvious obstruction Rotator cuff tear 01/16/2010 Tobacco use disorder 11/29/2006 quit 2006 Type II or unspecified type diabetes mellitus without mention of complication, not stated as uncontrolled 11/29/2006 no retinopathy 12/26 aic 9.7 10/08/13 9.1 03/02/14 Unspecified essential hypertension 11/29/2006 Family History Problem Relation Age of Onset Diabetes Mother Current Outpatient Medications Medication Sig acetaminophen (TYLENOL) 500 MG Oral Tab Take 1,000 mg by mouth EVERY SIX HOURS NEEDED for Pain. albuterol-ipratropium (DUO-NEB) 0.5-2.5 (3) MG/3ML Inhalation Solution INHALE CONTENTS OF 1 VIAL IN NEBULIZER FOUR TIMES A DAY Aliskiren Fumarate 150 MG Oral Tab TAKE 1 TABLET BY MOUTH ONCE DAILY amLodipine (NORVASC) 10 MG Oral Tab take 1 tablet by mouth once daily Aspirin 81 MG Oral Tab Take 1 Tab by mouth DAILY. atorvastatin (LIPITOR) 40 MG Oral Tab TAKE 1 TABLET BY MOUTH ONCE DAILY BASAGLAR KWIKPEN 100 UNIT/ML Subcutaneous Solution Pen-injector INJECT 150 UNITS SUBCUTANEOUSLY AT BEDTIME Blood Glucose Monitoring Suppl (BLOOD GLUCOSE TEST STRIPS STRP) Brand: true test strips Dx: 250.00 Insulin dependent Test Blood Glucose 2 time(s) A DAY budesonide-formoterol fumarate (SYMBICORT) 80-4.5 MCG/ACT Inhalation Aerosol Take 2 INHL by inhalation TWICE DAILY. colchicine (COLSALIDE) 0.6 MG Oral Tab Take 1 Tab by mouth DAILY NEEDED (gout). escitalopram (LEXAPRO) 10 MG Oral Tab TAKE 1 TABLET BY MOUTH ONCE DAILY fexofenadine (AMERICA) 60 MG Oral Tab Take 1 Tab by mouth TWICE DAILY. ( Patient taking differently: Take 60 mg by mouth TWO TIMES DAILY NEEDED.) FLOVENT HFA 110 MCG/ACT Inhalation Aerosol INHALE 2 PUFFS BY MOUTH TWICE A DAY fluticasone (FLONASE) 50 MCG/ACT Nasal Suspension INSTILL 2 SPARYS INTO EACH NOSTRIL ONCE DAILY foliC acid 1 MG Oral Tab TAKE 1 TABLET BY MOUTH ONCE DAILY FREESTYLE TEST STRIPS In Vitro Strip use as directed twice a day glimepiride (AMARYL) 4 MG Oral Tab TAKE 1 TABLET TWICE A DAY guaifenesin (MUCINEX) 600 MG Oral TABLET SR 12 HR Take 1 Tab by mouth EVERY TWELVE HOURS. hydrALAZINE (APRESOLINE) 50 MG Oral Tab take 1 tablet by mouth three times a day Insulin Pen Needle (PEN NEEDLES 3/16") 31G X 5 MM Does not apply Misc 1 Each by Injection route DAILY. Insulin dependent diabetes Insulin Pen Needle 33G X 8 MM Does not apply Misc Inject 1 Each beneath the skin EVERY BEDTIME. BD ultrafine III . E11.9 Last OV 07/12/18 ipratropium-albuterol (COMBIVENT RESPIMAT) 20-100 MCG/ACT Inhalation Aero Soln Take 1 Puff byinhalation EVERY SIX HOURS. ipratropium-albuterol (COMBIVENT RESPIMAT) 20-100 MCG/ACT Inhalation Aero Soln Take 1 Puff byinhalation FOUR TIMES DAILY. Lancets Does not apply Misc by Does not apply route TWICE DAILY. Brand:* freestyle Dx:E11.65 LORazepam (ATIVAN) 0.5 MG Oral Tab Take 1 Tab by mouth EVERY EIGHT HOURS NEEDED (anxiety).Max Daily Amount: 1.5 mg. magnesium hydroxide (MILK OF MAGNESIA PO SUSP 400 MG/5 ML 180 ML, ODD DOSES, ) 400 MG/5ML Oral Suspension Take 30 mL by mouth EVERY BEDTIME NEEDED (constipation). Magnesium Oxide 400 (240 Mg) MG Oral Tab take 1 tablet by mouth twice a day metFORMIN HCL 1000 MG Oral Tab TAKE 1 TABLET BY MOUTH TWICE A DAY Methotrexate 2.5 MG Oral Tab Take 1 Tab by mouth DIRECTED. 15 mg po weekly metolazone (ZAROXOLYN) 2.5 MG Oral Tab Take 1 Tab by mouth EVERY OTHER DAY. (Patient taking differently: Take 2.5 mg by mouth DAILY.) metoprolol succinate (TOPROL XL) 100 MG Oral TABLET SR 24 HR Take 100 mg by mouth DAILY. metoprolol succinate (TOPROL XL) 50 MG Oral TABLET SR 24 HR Take 1 Tab by mouth DAILY. morphine (ORAMORPH SR, MS CONTIN) 30 MG Oral Tab CR Take 1 Tab by mouth EVERY EIGHT HOURS NEEDED (chronic pain). Max Daily Amount: 90 mg. OXYcodone (OXY-IR,OXY-FAST) 5 MG Oral Tab TWICE DAILY polyethylene glycol (MIRALAX) Oral Powder TAKE 17GM(DISSOLVED IN WATER) BY MOUTH ONCE DAILY NEEDED FOR CONSTIPATION pregabalin (LYRICA) 75 MG Oral Cap Take 1 Cap by mouth THREE TIMES DAILY. Max Daily Amount: 225 mg. Sarilumab (KEVZARA SC) Inject beneath the skin. Sennosides (SENNA) 8.6 MG Oral Tab Take 1 Tab by mouth EVERY BEDTIME. Spironolactone 50 MG Oral Tab TAKE 1 TABLET BY MOUTH ONCE DAILY torsemide (DEMADEX) 20 MG Oral Tab TAKE 2 TABLETS BY MOUTH EVERY DAY WITH 1 ADDITIONAL TABLETAS NEEDED DAILY FOR SWELLING AND INCREASED SHORTNESS OF BREATH triamcinolone (KENALOG,ARISTOCORT) 0.1 % Apply externally Cream 1 g by Topical route TWICE DAILY. To shins umeclidinium bromide (INCRUSE ELLIPTA) 62.5 MCG/INH Inhalation AEROSOL POWDER, BREATH ACTIVATED Take 1 INHL by inhalation DAILY. warfarin (COUMADIN) 7.5 MG Oral Tab Take 0.5-1 Tabs by mouth DAILY. 7.5mg Sun and Wed. 3.75mgremaining days of week No current facility-administered medications for this visit. Allergies Allergen Reactions Clonidine Hives Skin irritation with patches Spiriva [Tiotropium Perry Monohydrate] Other dizzy Social History Socioeconomic History Marital status: Single Spouse name: Not on file Number of children: Not on file Years of education: Not on file Highest education level: Not on file Occupational History Not on file Social Needs Financial resource strain: Not on file Food insecurity: Worry: Not on file Inability: Not on file Transportation needs: Medical: Not on file Non-medical: Not on file Tobacco Use Smoking status: Former Smoker Packs/day: 1.00 Years: 30.00 Pack years: 30.00 Types: Cigarettes Smokeless tobacco: Never Used Substance and Sexual Activity Alcohol use: Yes Alcohol/week: 33.3 standard drinks Types: 40 Standard drinks or equivalent per week Comment: 8 mixed drinks Drug use: Yes Types: Prescription Sexual activity: Never Lifestyle Physical activity: Days per week: Not on file Minutes per session: Not on file Stress: Not on file Relationships Social connections: Talks on phone: Not on file Gets together: Not on file Attends roman catholic service: Not on file Active member of club or organization: Not on file Attends meetings of clubs or organizations: Not on file Relationship status: Not on file Intimate partner violence: Fear of current or ex partner: Not on file Emotionally abused: Not on file Physically abused: Not on file Forced sexual activity: Not on file Other Topics Concern Not on file Social History Narrative Not on file REVIEW OF SYSTEMS: Review of Systems Respiratory: Not sure if on symbicort and flovent Gastrointestinal: Has a bowel regimen of senna and mom and miralax Genitourinary: Asks for bedside commode Musculoskeletal: Hand has been inflamed Objective PHYSICAL EXAM: VITALS: BP 120/62 (BP Location: Left arm, Patient Position: Sitting) | Pulse 60 | Ht 5' 9" (1.753m) | Wt 328 lb (148.8 kg) | SpO2 99% | BMI 48.44 kg/m Body mass index is 48.44 kg/m. Physical Exam Vitals signs reviewed. Constitutional: General: He is not in acute distress. Appearance: He is obese. He is ill-appearing. Cardiovascular: Rate and Rhythm: Normal rate. Heart sounds: No murmur. Pulmonary: Breath sounds: No wheezing or rales. Musculoskeletal: Comments: Edema improved Lot of pain with movement Wrist swollen and warm Psychiatric: Comments: Dress and hygiene good Good eye contact Thoughts and speech normal Affect Appropriate Mood normal ASSESSMENT / IMPRESSION: ICD-9-CM ICD-10-CM 1. Acute on chronic diastolic heart failure (HCC) he has hx of food indiscretion with salt He knowshe has to change . toprol XL will make 50 as pulse low Need to follow CKD 428.33 I50.33 2. 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 Rheumatoid arthritis involving multiple sites with positive rheumatoid factor (HCC) I think he has a rheumatologic component to his breathing problems He needs a bedside commode and was to go to therapy 714.0 M05.79 4. Class 3 obesity with alveolar hypoventilation, serious comorbidity, and body mass index (BMI) of 45.0 to 49.9 in adult ([facility]) 278.03 E66.2 V85.42 Z68.42 5. Essential hypertension BP ok off hydralazine and tekturna Note he not on jorge now ?? 401.9 I10 6. Type 2 diabetes mellitus with diabetic nephropathy, with long-term current use of insulin ([facility]) a1c jumped up Need to take more insulin again 250.40 E11.21 583.81 Z79.4 V58.67 7 wrist pain ? Gout try colchicine but could be his RA Plan Author: Torres Do MD 02/09/2019 20:14 documented in this encounter Plan of Treatment Name Type Priority Associated Diagnoses Order Schedule GLYCOHEMOGLOBIN A1C Lab Routine Type 2 diabetes mellitus Expected: 2018 with diabetic nephropathy, (Approximate), Expires: with long-term current use 02/10/2020 of insulin ([facility]) Name Type Priority Associated Diagnoses Order Schedule DME COMMODE (AMB) Referral Routine Rheumatoid arthritis (HCC) Ordered: Health Maintenance Due Date Last Done Comments Colonoscopy 2010 PNEUMOCOCCAL 0-64 YRS (3 of 02/19/2015 12/25/2014, 02/25/2008 3 - PPSV23) ZOSTER IMMUNIZATION SERIES 09/28/2018 08/03/2018 (2 of 2) FOOT EXAM 11/01/2018 11/01/2017, 11/01/2017, 11/02/2015 INFLUENZA VACCINE (#1) 2018 04/24/2018, 01/08/2017, 11/24/2015, Additional history exists Diabetic Eye Exam 03/13/2019 03/13/2018, 02/05/2017, 02/05/2017, Additional history exists URINE MICROALBUMIN 04/02/2019 04/02/2018, 12/26/2016, 12/10/2014, Additional history exists HEMOGLOBIN A1C 04/08/2019 01/06/2019, 10/09/2018, 04/02/2018, Additional history exists DEPRESSION SCREENING 07/13/2019 07/12/2018 LIPID DISORDER SCREENING 01/07/2020 01/06/2019, 10/14/2018, 04/02/2018, Additional history exists HPV IMMUNIZATION SERIES Aged Out No longer eligible based on patient's age to complete this topic MENINGOCOCCAL VACCINE IMM Aged Out No longer eligible based on patient's age to complete this topic documented as of this encounter Goals Goal Patient Goal Associated Recent Patient-Stated? Author Type Problems Progress Blood Pressure Blood Pressure Essential 120/62 No Hi, < 140/90 hypertension (01/15/2019 MD Torres 3:18 PM EDT) Note: Hypertension Care Plan Based on the patient's clinical history and according to JNC 8 guidelines target blood pressure goal is less than 140/90. Based on the patient's last blood pressure of BP: 110/70 mmHg the patient is at at goal. As your provider, it is important that I advise you regarding: your current medications and help you with any challenges you may face taking your medications as directed (ex. instructions, cost, side effects, and interactions). lifestyle changes: weight reduction and diet your clinical goals and how you can achieve success: weight reduction and diet improvements medication management: adjusted medications as appropriate patient education/self-management tools provided: Current self-management tools adequate To successfully manage my Hypertension I will: monitor my blood pressure daily, understanding that my goal is less than 140/ 90 per my healthcare provider's recommendation. I will schedule an appointment with my provider if consistent abnormal readings greater than 160/100. take medications every day as prescribed by my healthcare provider and if unable to take them I will discuss with my provider. monitor for symptoms of chest pain, chest tightness/pressure, irregular heartbeat, persistent dizziness, radiating arm pain, and neck or jaw pain. If any of these symptoms are noticed I will seek medical attention immediately by calling 911 exercise/walk 15 minutes 3 day(s) per week. If I experience chest pain, chest tightness, or shortness of breath, I will seek medical attention immediately. follow a diet rich in fruits, vegetables, and low-fat dairy products with reduced content of saturated & total fat. I will reduce my sodium intake daily. An example is the DASH diet. To obtain more information please refer to the DASH Eating Plan listed in Educational Resources. record my blood pressure results. [employer] is safe and secure way for you to do this in your medical record online. try to obtain an ideal body weight. My recent weight was Weight: 322 lb 3.2 oz (146.149 kg). My weight loss goal for my next office visit is 310. limit alcohol consumption. For men two drinks per day and women one drink per day. if currently smoking, will discuss how to quit smoking with my healthcare provider and work towards quitting. Educational Resources: National Heart, Lung, & Blood [place] http://nhlbi.nih.gov/hbp/index.html The DASH Diet Eating Plan http://www.nhlbi.nih.gov/health/health-topics/ topics/dash/ Academy of Nutrition & DIetetics http://eatright.org National Smoking Cessation Site http://smokefree.gov Blood Pressure < 140/90 Blood Pressure 120/62 (01/15/2019 3:18 No Torres Do MD PM EDT) Note: This is an individualized treatment (blood pressure) goal for Jonah Cordon: Displayed above (on the left) is your goal for blood pressure control. Your most recent blood pressure is also shown above, on the right. You should try to achieve blood pressures that are lower than your goal listed above (on the left). Weight increase vs. 18 mo min CHF 38 (01/15/2019 3:18 PM EDT) Torres Ignacio MD (lbs) < 5 Note: This is an individualized treatment (congestive heart failure, CHF) goal for Jonah Cordon: Displayed above (on the right) is how many pounds you are in excess of your lowest weight over the past 18 months. Note that lower numbers are better. Excessive weight gain often indicates fluid reten tion and worsening heart failure. You should contact your doctor immediately if the above number is too high (above your goal, the number on the left). Smoking Cessation COPD Torres Ignacio MD Note: This is an individualized treatment (COPD) goal for Jonah Cordon: Quit smoking immediately! Your provider has information and resources that may help you to quit. Depression screen (PHQ-9) total score < 5 Depression No Torres Do MD Note: This is an individualized treatment (depression) goal for Jonah Cordon: Displayed above is your goal for a depression screening (PHQ-9) score that would indicate good control of your depression. Diabetes < 7.0 Diabetes Type 2 diabetes 10.2 (01/06/2019 No Torres Do MD mellitus with 4:17 PM EDT) diabetic nephropathy Note: Diabetes Care Plan According to current 2014 ADA guidelines the patient A1C goal is less than 7. The patient's last A1C was Lab Results Lab Results Value Date/Time GLYCO 9.5 03/31/2013 1125 The patient is:above goal . As your provider, it is important that I advise you regarding: your current medications and help you with any challenges you may face taking your medications as directed (ex. instructions, cost, side effects, and interactions). lifestyle changes:diet and glucose monitoring your clinical goals and how you can achieve success:weight reduction, diet management and glucose monitoring medication management: adjusted medications as appropriate the availability of a care specialist to help you with your Diabetes patient education/self-management tools provided: Yes To successfully manage my Diabetes I will: have lab work every six months if my previous A1c was 7 or less. If my results were greater than 7, I will have lab work every three months. My goal is to control my diabetes by keeping A1c below 7.0 take medications every day as prescribed by my healthcare provider and if unable to take them I will discuss with my provider. exercise/walk hard to walk due to pain 0 day(s) per week. If I experience chest pain, chest tightness, or shortness of breath, I will seek medical attention immediately. check feet daily. If sores or irritation are noticed, will seek medical attention. follow a low carbohydrate and low fat diet. My goal is an LDL (bad cholesterol) number less than 100 when I have my routine lab work. check blood sugar as instructed and will call my healthcare provider if the results are consistently below 70 or above 300. I will monitor for symptoms of low blood sugar (feeling faint, dizzy, lig htheaded, jittery, sweaty, or hungry), if symptoms are noticed, I will eat or drink something (glucose tabs, orange juice, candy) to help raise sugar. record my blood sugar results. [employer] is safe and secure way for you to do this in your medical record online. try to obtain an ideal body weight. My recent weight was Weight: 309 lb 6.4 oz (140.343 kg). My weight loss goal for my next office visit is 300. to prevent kidney problems common to people with diabetes I will complete a yearly Microalbumin to check for protein in urine. I will talk with my healthcare provider about medications to prevent diabetic renal disease. to prevent diabetic retinopathy I will see an eye doctor yearly. A yearly dilated eye exam helps prevent blindness. if currently smoking, will discuss how to quit smoking with my healthcare provider and work towards quitting. Education Resources: [place] Diabetic Association Site http://diabetes.org Academy of Nutrition & Dietetics Site http://eatright.org National Smoking Cessation Site http://smokefree.gov Diabetes < 7.0 Diabetes Type 2 diabetes 10.2 (01/06/2019 No Torres Do MD mellitus with 4:17 PM EDT) diabetic nephropathy Note: Diabetes Care Plan According to current 2014 ADA guidelines the patient A1C goal is less than 7. The patient's last A1C was Lab Results Lab Results Value Date/Time GLYCO 9.5 03/31/2013 1125 The patient is:above goal . As your provider, it is important that I advise you regarding: your current medications and help you with any challenges you may face taking your medications as directed (ex. instructions, cost, side effects, and interactions). lifestyle changes:diet your clinical goals and how you can achieve success:weight reduction and diet management medication management: adjusted medications as appropriate patient education/self-management tools provided: Current self-management tools adequate To successfully manage my Diabetes I will: have lab work every six months if my previous A1c was 7 or less. If my results were greater than 7, I will have lab work every three months. My goal is to control my diabetes by keeping A1c below 7.0 take medications every day as prescribed by my healthcare provider and if unable to take them I will discuss with my provider. exercise/walk 15 minutes 5 day(s) per week. If I experience chest pain, chest tightness, or shortness of breath, I will seek medical attention immediately. check feet daily. If sores or irritation are noticed, will seek medical attention. follow a low carbohydrate and low fat diet. My goal is an LDL (bad cholesterol) number less than 100 when I have my routine lab work. check blood sugar as instructed and will call my healthcare provider if the results are consistently below 70 or above 300. I will monitor for symptoms of low blood sugar (feeling faint, dizzy, lig htheaded, jittery, sweaty, or hungry), if symptoms are noticed, I will eat or drink something (glucose tabs, orange juice, candy) to help raise sugar. record my blood sugar results (including dextrose sticks). [employer] is safe and secure way for you to do this in your medical record online. try to obtain an ideal body weight. My recent weight was Weight: 322 lb 3.2 oz (146.149 kg). My weight loss goal for my next office visit is 310. to prevent diabetic retinopathy I will see an eye doctor yearly. A yearly dilated eye exam helps prevent blindness. if currently smoking, will discuss how to quit smoking with my healthcare provider and work towards quitting. Education Resources: [place] Diabetic Association Site http://diabetes.org Academy of Nutrition & Dietetics Site http://eatright.org National Smoking Cessation Site http://smokefree.gov Glycohemoglobin A1c < 7.0 Diabetes 10.2 (01/06/2019 4:17 PM No Torres Do MD EDT) Note: This is an individualized treatment (diabetes control, HgbA1C) goal for Jonah Cordon: Displayed above is your progress towards your HgbA1C goal. Your goal is shown above (on the left); your most recent HgbA1C is shown on the right. Note that lower numbers are better. Keep immunizations current Lifestyle No Torres Do MD Note: This is an individualized lifestyle goal for Jonah Cordon: Please be sure to keep up-to-date on recommended immunizations. For example, this would include a yearly influenza vaccine. Immunization status can be seen by looking at the Health Maintenance sections of your [facility], Plan of Care, and any After Visit Summaries. Keep a regular sleep schedule Lifestyle Torres Ignacio MD Note: This is an individualized lifestyle goal for Jonah Cordon: Please maintain a regular sleep schedule. This may help with some symptoms of depression. Consume a [id number] diet Lifestyle Torres Ignacio MD Note: This is an individualized lifestyle goal for Jonah Cordon: Please do not add additional salt to your food. Additional salt may lead to fluid retention and worsen your congestive heart failure. Unit - lb < 250 Result Component No Torres Do MD Take all prescribed medications as directed Self-management Torres Ignacio MD Note: This is an individualized self-management goal for Jonah Cordon: Please take all prescribed medications as directed. 1. Do not skip doses. If you cannot afford your medications, talk with your doctor. 2. Use a pill reminder system such as a pill box if needed. Your pharmacist can help you with this. 3. Contact your Pharmacy 5 days before your medication runs out. If you cannot take your medications for any reasons, talk with your doctor. 4. Please bring all of your medication bottles and inhalers (or a list of all your medications/inhalers) with you to every visit. Potential barriers to meeting all of your care plan goals will continue to be addressed on an ongoing basis. Check your weight daily Self-management Torres Ignacio MD Note: This is an individualized self-management goal for Jonah Cordon: Please check your weight daily. Refer to the accompanying CHF treatment goal and call your doctor immediately for further instructions on how to respond to unexpected weight gain. documented as of this encounter Implants Implanted Type Area Laboratory Worker Device Shelf Model / Identifier Expiration Date Serial / Lot Synergy (Stent - [id number] [employer] [id number] / Implanted: Qty: 1 on 07/28/2016 by James Meyer MD at [facility] / [id number] 3.032 Synergy Stent - [id number] [employer] [id number] / Implanted: Qty: 1 on 07/28/2016 by James Meyer MD at [facility] / [id number] documented as of this encounter Results Not on filedocumented in this encounter Visit Diagnoses Diagnosis Acute on chronic diastolic heart failure (HCC) - Primary Acute on chronic diastolic heart failure 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) Chronic airway obstruction, not elsewhere classified Rheumatoid arthritis involving multiple sites with positive rheumatoid factor ( HCC) Class 3 obesity with alveolar hypoventilation, serious comorbidity, and body mass index (BMI) of 45.0 to 49.9 in adult (HCC) Essential hypertension Unspecified essential hypertension Type 2 diabetes mellitus with diabetic nephropathy, with long-term current use of insulin (HCC) Rheumatoid arthritis (HCC) documented in this encounter Guarantor Name Account Type Relation to Date of Phone Billing Patient Address Jonah Cordon Personal/Family 1960 [address] (Home) [place], [place] [phone] (Work) documented as of this encounter Advance Directives Type Date Recorded Patient Wellness Guide Explanation Advance Directives 07/29/2018 9:32 AM Health Care Proxy
[2019-03-14] MEDS ORDERED: Ondansetron INJ* 2 MG/ML VIAL IV PRN (20:01)
[2019-03-14] MEDS ORDERED: Dextrose 50% VIAL 50 ml IV PUSH PRN (20:04)
[2019-03-14] MEDS ORDERED: PREGABALIN 75 MG PO PRN (20:07)
[2019-03-14] MEDS ORDERED: Senna TAB 8.6 mg* TAB PO PRN (20:07)
[2019-03-14] MEDS ORDERED: Magnesium Hydroxide LIQ* 30 ML UDC PO PRN (20:07)
[2019-03-14] MEDS ORDERED: Vancomycin(*) 2,000 MG in NS 0.9% 500 ML* 500 ML IVPB ONE (20:12)
[2019-03-14] MEDS ORDERED: NS 0.9% 1000 ML** 1,000 ML IV SCH (20:30)
[2019-03-14] MEDS ORDERED: Vancomycin per Pharmacy* NOTE FOLLOW UP SCH (21:00)
[2019-03-14] MEDS ORDERED: metFORMIN* 500 MG TAB PO SCH (21:00)
[2019-03-14] MEDS ORDERED: Albuterol/Ipratropium RESP(NF) MDI (Combivent Respimat) INH SCH (21:00)
[2019-03-14] MEDS ORDERED: NS 0.9% 1000 ML** 1,000 ML IV ONE (23:41)
[2019-03-14] MEDS ORDERED: Pregabalin 25 mg CAP (*) ONE (23:59)
[2019-03-14] MEDS ORDERED: Pregabalin 50 mg CAP (*) ONE (23:59)
[2019-03-14] MEDS ORDERED: Morphine TAB Extended Release (*) 30 MG TAB.ER ONE (23:59)
[2019-03-15] MEDS: Metoprolol Succinate XL TAB* 100 MG PO SCH ×2 (00:02→21:59)
[2019-03-15] MEDS: Morphine TAB Extended Release (*) 30 MG TAB.ER PO PRN ×3 (00:03→22:26)
[2019-03-15] MEDS: Magnesium Oxide TAB* 400 MG PO SCH ×3 (00:03→21:59)
--- NOTE | 2019-03-15 00:24 | HP ---
CC: Dr. Torres Do; Dr. Adam Alex* ADMISSION HISTORY AND PHYSICAL: DATE OF ADMISSION: 03/14/19 PRIMARY CARE PROVIDER: Dr. Torres Do. MY ATTENDING WHILE IN THE HOSPITAL: Dr. Adam Alex* (dictated by YOVANI Mcdonald). CHIEF COMPLAINT: Left lower extremity redness and swelling x1 day. HISTORY OF PRESENT ILLNESS: Mr. Cordon is a 58-year-old male with past medical history significant for heart failure with preserved ejection fraction, atrial fibrillation, diabetes mellitus type 2, chronic kidney disease, and rheumatoid arthritis, who presents to the emergency department. After approximately a week ago he had his friend sand down a callus on his left foot which was previously done only by a business management intern but at that time his friend expressed unexpectedly some discharge from it. The patient after that point had some swelling and redness in his leg with minor pain that went away quickly and the patient began treating his callus with Neosporin and bandages and followed up with a nurse practitioner from his primary care provider's office. Yesterday, the site was looking very good and he continued with his treatment; however, last night, the patient's pain in his leg became unbearable to the point he could not sleep, could not move and the people who he lives with could not help him out with his acts of daily living. Today, he came into the emergency department as the pain improved but the redness and swelling was getting significantly worse. The patient had had some subjective fevers and chills on the night before his admission associated with severe increase in his leg pain. The patient had been taking fewer diuretics due to his not feeling like his breathing was that bad, as that how he usually doses his diuretics based on his breathing. The patient had not been on any other antibiotics recently. The patient had no chest pain or shortness of breath. The patient never had anything like this before. The patient has no history of thrombosis. The patient has INR checked the day before his admission and it was decreased at 1.82 though he has had several subtherapeutic readings in his record. The patient denies decrease in his urine output. The patient had some nausea in the ED which is rare for him but this went away quickly. The patient denies other trauma to leg. In the emergency department, the patient had concern for left lower extremity diabetic foot ulcer with associated cellulitis and we were asked to evaluate the patient for admission to the hospital. PAST MEDICAL HISTORY: 1. Atrial fibrillation. 2. Heart failure with preserved ejection fraction. 3. Hypertension. 4. Diabetes mellitus, type 2, insulin-dependent. 5. Chronic kidney disease, stage 3. 6. Seronegative rheumatoid arthritis. 7. Obstructive sleep apnea. 8. COPD with chronic hypoxic respiratory failure. 9. Pericarditis. 10. Proteinuria. PAST SURGICAL HISTORY: Left ankle pinning in patient's 20s. MEDICATIONS: 1. Metolazone 2.5 mg p.o. every other day. 2. Metformin 1000 mg p.o. b.i.d. 3. Folic acid 1 mg p.o. daily. 4. Fluticasone nasal spray 2 sprays both naris daily. 5. Insulin glargine 150 units bedtime. 6. Norvasc 10 mg p.o. daily. 7. Tylenol 500-750 mg p.o. t.i.d. as needed. 8. Spironolactone 50 mg p.o. daily. 9. MiraLAX 17 g p.o. daily. 10. Glimepiride 4 mg p.o. b.i.d. 11. Combivent Respimat 2 puffs inhalation 4 times a day. 12. Lyrica 75 mg p.o. t.i.d. as needed. 13. Morphine sulfate 30 mg p.o. t.i.d. as needed. 14. Lexapro 10 mg p.o. daily. 15. Warfarin 7.5 mg p.o. Sunday, 3.75 mg p.o. Sunday, Sunday, Sunday, , Sunday, Sunday. 16. Lipitor 5 mg p.o. daily. 17. Kevzara 200 mg every 14 days. 18. Milk of Magnesium 30 mL p.o. b.i.d. as needed. 19. Metoprolol succinate 100 mg p.o. at bedtime. 20. Senna 1 p.o. at bedtime as needed. 21. Aspirin 81 mg p.o. daily. 22. Colchicine 0.6 mg p.o. daily as needed. 23. Methotrexate 15 mg p.o. weekly. 24. Aliskiren 150 mg p.o. daily. 25. Incruse Ellipta 1 puff inhalation daily. 26. Magnesium oxide 400 mg p.o. b.i.d. 27. Torsemide 40 mg p.o. daily as needed. ALLERGIES: TIOTROPIUM. FAMILY HISTORY: The patient's mother of diabetes and heart disease. The patient's father of old age soon after his mother. The patient had a sister who of an aortic dissection. Had diabetes. The patient's brother of suicide. Another brother of complications of diabetes. SOCIAL HISTORY: The patient smoked for most of his adult life. Quit for approximately 10 years but then has smoked approximately a pack and a half over the past 2 weeks due to his feeling down. The patient has a history of alcohol abuse, history of marijuana use remotely. 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 The patient is never and never had any children. Had a large family. The patient's surrogate decision maker will be his nephew, Lucian Cordon. REVIEW OF SYSTEMS: A 10-point review of systems was reviewed and is negative except as above in the HPI. PHYSICAL EXAMINATION GENERAL: The patient is a 58-year-old male, who appears as stated age, sitting in the bed in no acute distress. VITAL SIGNS: At the time of evaluation, temperature 97.8, pulse rate 74, respiratory rate 16, oxygen saturation 99% on 3 L, blood pressure 113/56. HEENT: Head: Normocephalic, atraumatic. Sclerae anicteric. No conjunctival injection. Nasal mucosa moist. Oral mucosa moist. No pharyngeal erythema, discharge, or exudate. Slight ecchymosis at the posterior pharynx. NECK: Supple, nontender. No lymphadenopathy. No carotid bruit auscultated. No JVD. RESPIRATORY: Diminished in the bilateral bases. No adventitious lung sounds. Slight expiratory wheezing heard in the right upper lobe. No other wheezes, rales, or rhonchi. Good air exchange bilaterally. CARDIAC: Regular rate and rhythm. No clicks, murmurs, gallops, or rubs. Pulses 2+ in the dorsalis pedis, posterior tibials and radial areas. Severe left-sided edema with associated erythema and diffuse tenderness. No palpable cords. ABDOMEN: Soft, nontender, nondistended. Bowel sounds present. Normoactive in all 4 quadrants. No hepatosplenomegaly. No abdominal bruits auscultated. No hepatojugular reflux. GENITOURINARY: No suprapubic or CVA tenderness. SKIN: Severe erythema of the left lower extremities. Small 1 cm round open area with scant discharge, surrounding erythema and tenderness on the tip of the left fifth metacarpal bone. No other rashes or ulcers except for scabs on the right lower extremity without erythema or discharge. NEURO: Cranial nerves II through XII intact. Peripheral neuropathy. No other focal deficits. Alert and oriented x3. PSYCHIATRIC: Pleasant and cooperative. DIAGNOSTIC STUDIES/LAB DATA: Laboratory data: White blood cell count 11.4, hemoglobin 12.5, platelet count 142. Sodium 127, potassium 4.5, chloride 90, carbon dioxide 29. Anion gap 8. BUN 50, creatinine 1.52. Glucose 456. Lactic acid 2.3. Calcium 9.2. Bilirubin 1.3. ASTs 16, ALT 32, alkaline phosphatase 62. Protein 6.4, albumin 2.7, globulin 2.7. Studies: None. IMPRESSION: Mr. Cordon is a 58-year-old male with past medical history significant for insulin-dependent diabetes mellitus, type 2, chronic kidney disease, chronic obstructive pulmonary disease with chronic hypoxic respiratory failure, on 3L at all time, and seronegative rheumatoid arthritis, who presents to the emergency department with severe pain and swelling in his left lower extremity with concern for infection associated with a diabetic foot wound, who is admitted to the hospital for antibiotics and further evaluation. 1. Diabetic foot ulcer, possible extensive associated cellulitis, rule out osteomyelitis. The patient has relatively acute onset of left lower extremity pain, swelling, and redness that started approximately the same time as an ulcer that from a foot trauma after a callus was removed from his foot non- professionally. The patient received clindamycin while in the emergency department. The patient will be broadened to vancomycin, cefepime, and Flagyl to cover MRSA, gram-negative including pseudomonas as well as anaerobes. The patient will have a wound culture and hopefully this will be able to be narrowed soon. The patient will have an MRI of his foot to assess for osteomyelitis or abscess. At that time, Infectious Disease or Orthopedic consultation should be considered the patient has good pulses in his foot and imaging of the vasculature of his legs is not indicated at this time. The patient should keep his leg elevated as much as possible. A lower extremity Doppler will be ordered to rule out blood clot contributing with his subtherapeutic INRs; however, this is less likely given the previously negative Doppler while he was in the hospital and the associated ulcer in his leg on his foot. The patient is immunocompromised in the setting of dampening his immune response to his diabetic foot infection. We will hold the patient's immunosuppressive agents while he is undergoing treatment for this. 2. Atrial fibrillation. The patient is currently rate controlled, continue the patient's metoprolol and continue the patient's warfarin. We will recheck INR in the morning. Continue home dosing. 3. Heart failure, preserved ejection fraction. The patient has been having elevated lactic acid, likely due to diuresis from his severe hyperglycemia. The patient will be treated with insulin, fluids, and his lactic acid will be rechecked later this evening. The patient's diuretics will be decreased at this time and should be titrated as needed. The patient will have strict I's and O's and daily weights. The patient's metolazone will be held and his torsemide will be increased and his spironolactone will be continued at this time. 4. Diabetes mellitus, type 2. The patient is markedly hyperglycemic at this point, likely related to his infection. The patient was given 5 units of insulin while in the emergency department. The patient will have recheck of his blood sugar in 20 minutes per routine and we will have sliding scale insulin as well as his home dose Lantus, glimepiride. His metformin will be held at this time due to lactic acidosis. Additional scheduled insulin with meals or increase in his Lantus dosing will be considered. This will be expected to improve as his infection is cleared. 5. Chronic kidney disease. This is at baseline. Avoid nephrotoxic medications. 6. Rheumatoid arthritis. Hold immunosuppression as above. Continue pain control with opiates. 7. COPD. Continue with the patient's home oxygen and chronic inhalers. 8. History of pericarditis. Continue the patient's colchicine. 9. DVT prophylaxis: Warfarin. Currently subtherapeutic. 10. FEN: The patient will have consistent carbohydrate diet and fluids 100 mL an hour as above. 11. Disposition. The patient is admitted inpatient to the hospital. Estimated length of stay will be greater than 2 midnights. TIME SPENT: Approximately 60 minutes were spent on the admission of this patient, 30 of which was spent [id number] with the patient obtaining history and physical and discussing treatment plan. This plan has been discussed with my attending, Dr. Adam Alex, and he is in agreement. YOVANI MCDONALD [id number]/[facility] #: [id number] [place]
[2019-03-15] MEDS: Insulin GLARGINE(*) 1 UNITS UNIT SUBCUT SCH ×2 (00:55→22:04)
[2019-03-15] MEDS: Insulin LISPRO* 1 UNITS UNIT SUBCUT SCH ×5 (00:55→21:45)
[2019-03-15] MEDS: Warfarin TAB(*) 7.5 MG PO SCH ×2 (01:03→17:20)
[2019-03-15] MEDS: Cefepime 1 GM in Dextrose(*) 1 GM/50 ML BAG IV SCH ×3 (01:04→22:04)
[2019-03-15] MEDS: metroNIDAZOLE IV 500 MG/100ML* 500 MG/100 ML BAG IVPB SCH ×2 (01:29→11:44)
[2019-03-15] MEDS: oxyCODONE TAB* 5 MG TAB PO PRN ×4 (01:30→22:05)
[2019-03-15] MEDS: Vancomycin(*) 1,000 MG in NS 0.9% 250 ML* 250 ML IV SCH ×3 (06:08→23:14)
[2019-03-15 06:45] LABS: INR 1.41 (0.82-1.09)
[2019-03-15 06:48] LABS: ABS Eosinophils 0.1 10^3/ul (0-0.6); ABS Lymphocytes 0.5 10^3/ul (1.0-4.8); ABS Neutrophils 6.9 10^3/ul (1.5-7.7); Hematocrit 34 % (42-52); Hemoglobin 11.6 g/dL (14.0-18.0); Lymphocyte % 5.7 %; Mean Corpuscular HGB Conc 34 g/dL (31-36); Mean Corpuscular Hemoglobin 33 pg (27-31); Mean Corpuscular Volume 96 fL (80-94); Nucleated Red Blood Cells % 0.1; Platelet Count 138 10^3/uL (150-450); Red Blood Count 3.58 10^6 /uL (4.18-5.48); Red Cell Distribution Width 18 % (10-15); White Blood Count 8.6 10^3/uL (3.5-10.8)
[2019-03-15 06:51] LABS: BUN/Creatinine Ratio 31.7 (8-20); C Reactive Protein 108.43 mg/L (<8.01); Calcium 8.7 mg/dL (8.6-10.3); EGFR African American 73.1 (>60); EGFR Non-African American 60.4 (>60); Magnesium 2.1 mg/dL (1.9-2.7); Potassium 3.4 mmol/L (3.5-5.0)
[2019-03-15] MEDS: Umeclidinium 62.5 MDI(NF) MDI INH SCH (08:25)
[2019-03-15] MEDS: Albuterol/Ipratropium RESP(NF) MDI (Combivent Respimat) INH SCH ×3 (08:25→17:19)
[2019-03-15] MEDS: Folic Acid TAB* 1 MG PO SCH (08:26)
[2019-03-15] MEDS: Spironolactone TAB* 25 MG PO SCH (08:26)
[2019-03-15] MEDS: Aspirin EC TAB* 81 MG TAB.EC PO SCH (08:26)
[2019-03-15] MEDS: amLODIPine TAB* 5 MG PO SCH (08:27)
[2019-03-15] MEDS: Escitalopram * 10 MG TAB PO SCH (08:27)
[2019-03-15] MEDS: Torsemide TAB* 20 MG PO SCH (08:27)
[2019-03-15] MEDS: Aliskiren TAB* 150 MG PO SCH (08:28)
[2019-03-15] MEDS: Pregabalin 25 mg CAP (*) PO SCH ×3 (08:29→21:59)
[2019-03-15] MEDS: Acetaminophen TAB* 325 MG PO PRN (08:41)
[2019-03-15] MEDS: Polyethylene Glycol 3350* 17 GM PACKET PO SCH (08:43)
[2019-03-15] MEDS: Fluticasone NASAL SPRAY 50MCG* 16 gm SPRAY BTL BOTH NARES SCH (08:43)
[2019-03-15] MEDS ORDERED: Torsemide TAB* 20 MG PO SCH (09:00)
--- NOTE | 2019-03-15 13:54 | PN ---
Subjective Date of Service: 03/15/19 Interval History: Did not sleep last night Pain in leg was bad overnight but better now Objective Active Medications: Acetaminophen (Tylenol Tab*) 650 mg PO Q6H PRN PRN Reason: MILD PAIN or TEMP > 100.4 Last Admin: 03/15/19 08:41 Dose: 650 mg Albuterol/Ipratropium (Combivent Respimat(Nf)) 1 puff INH QID [facility]; Protocol Last Admin: 03/15/19 08:25 Dose: Not Given Aliskiren (Tekturna Tab*) 150 mg PO DAILY [facility] Last Admin: 03/15/19 08:28 Dose: 150 mg Amlodipine Besylate (Norvasc Tab*) 10 mg PO DAILY [facility] Last Admin: 03/15/19 08:27 Dose: 10 mg Aspirin (Aspirin Ec Tab*) 81 mg PO DAILY [facility] Last Admin: 03/15/19 08:26 Dose: 81 mg Atorvastatin Calcium (Lipitor*) 40 mg PO 1700 [facility] Colchicine (Colcrys*) 0.6 mg PO DAILY PRN PRN Reason: PAIN - MODERATE Dextrose (Dextrose 50% Vial 50 Ml*) 25 ml IV PUSH .FOR FS < 60 - SS PRN PRN Reason: FS < 60 Escitalopram Oxalate (Lexapro *) 10 mg PO DAILY [facility] Last Admin: 03/15/19 08:27 Dose: 10 mg Fluticasone Propionate (Flonase Nasal [place] 50mcg*) 2 spray BOTH NARES DAILY [facility] Last Admin: 03/15/19 08:43 Dose: Not Given Folic Acid (Folvite Tab*) 1 mg PO DAILY [facility] Last Admin: 03/15/19 08:26 Dose: 1 mg Glimepiride (Glimepiride) 4 mg PO BID [facility]; Protocol Last Admin: 03/15/19 08:42 Dose: Not Given Cefepime HCl (Maxipime 1 Gm In Dextrose Duplex (*)) 1 gm in 50 mls @ 100 mls/ hr IV 0900,2100 [facility] Last Admin: 03/15/19 08:31 Dose: 100 mls/hr Metronidazole/Sodium Chloride (Flagyl 500 Mg Ivpb*) 500 mg in 100 mls @ 100 mls /hr IVPB Q12H [facility] Last Admin: 03/15/19 11:44 Dose: 100 mls/hr Vancomycin HCl 1,000 mg/ (Sodium Chloride) 250 mls @ 166.667 mls/hr IV Q8H [facility] Last Admin: 03/15/19 06:08 Dose: 166.667 mls/hr Insulin Glargine (Lantus(*)) 150 units SUBCUT BEDTIME [facility] Last Admin: 03/15/19 00:55 Dose: 150 units Insulin Human Lispro (Humalog*) 0 units SUBCUT ACHS [facility]; Protocol Last Admin: 03/15/19 11:45 Dose: 12 units Magnesium Hydroxide (Milk Of Magnesia Liq*) 30 ml PO BID PRN PRN Reason: CONSTIPATION Magnesium Oxide (Magox 400 Tab*) 400 mg PO BID [facility] Last Admin: 03/15/19 08:26 Dose: 400 mg Metoprolol Succinate (Toprol Xl Tab*) 100 mg PO BEDTIME [facility] Last Admin: 03/15/19 00:02 Dose: 100 mg Morphine Sulfate (Ms Contin(*)) 30 mg PO TID PRN PRN Reason: PAIN Last Admin: 03/15/19 08:29 Dose: 30 mg Ondansetron HCl (Zofran Inj*) 4 mg IV Q6H PRN PRN Reason: NAUSEA Oxycodone HCl (Roxycodone Tab*) 5 mg PO Q6H PRN PRN Reason: PAIN - MODERATE Oxycodone HCl (Roxycodone Tab*) 10 mg PO Q6H PRN PRN Reason: PAIN - SEVERE Last Admin: 03/15/19 08:28 Dose: 10 mg Pharmacy Consult (Vancomycin Per Pharmacy*) 1 note FOLLOW UP .VANC PER PHARMACY [facility]; Protocol Pharmacy Profile Note (Vancomycin Trough Check) 1 note FOLLOW UP ONCE ONE Stop: 03/16/19 06:01 Polyethylene Glycol/Electrolytes (Miralax*) 17 gm PO DAILY [facility] Last Admin: 03/15/19 08:43 Dose: Not Given Pregabalin (Lyrica Cap(*)) 75 mg PO TID [facility] Last Admin: 03/15/19 08:29 Dose: 75 mg Senna (Senokot 8.6 Mg Tab*) 1 tab PO BEDTIME PRN PRN Reason: CONSTIPATION Spironolactone (Aldactone Tab*) 50 mg PO DAILY [facility] Last Admin: 03/15/19 08:26 Dose: 50 mg Torsemide (Demadex*) 20 mg PO DAILY [facility] Last Admin: 03/15/19 08:27 Dose: 20 mg Umeclidinium [place] (Incruse Ellipta Mdi (Nf)) 1 inh INH DAILY [facility] Last Admin: 03/15/19 08:25 Dose: Not Given Warfarin Sodium (Coumadin Tab(*)) 7.5 mg PO We@1700 [facility]; Protocol Warfarin Sodium (Coumadin Tab(*)) 3.75 mg PO SuMoTuThFrSa@1700 [facility]; Protocol Last Admin: 03/15/19 01:03 Dose: 3.75 mg Vital Signs - 8 hr 03/15/19 03/15/19 03/15/19 07:15 08:00 08:28 Temperature 97.3 F Pulse Rate 61 Respiratory 20 20 22 Rate Blood Pressure 113/52 (mmHg) O2 Sat by Pulse 97 Oximetry 03/15/19 03/15/19 03/15/19 08:29 10:51 11:15 Temperature 97.9 F Pulse Rate 52 Respiratory 22 20 22 Rate Blood Pressure 95/54 (mmHg) O2 Sat by Pulse 98 Oximetry Oxygen Devices in Use Now: CPAP Appearance: obese, lying flat, NAD Eyes: No Scleral Icterus, PERRLA Ears/Nose/Mouth/Throat: NL Teeth, Lips, Gums, Clear Oropharnyx Neck: NL Appearance and Movements; NL JVP, Trachea Midline Respiratory: Symmetrical Chest Expansion and Respiratory Effort, Clear to Auscultation Cardiovascular: RRR Abdominal: NL Sounds; No Tenderness; No Distention, No Hepatosplenomegaly Lymphatic: No Cervical Adenopathy Extremities: - - left leg edematous Skin: - - left lateral foor with ulcer, erythema from ankle to knee Neurological: Alert and Oriented x 3 Result Diagrams: 03/15/19 06:08 03/15/19 06:08 Microbiology and Other Data: Microbiology 03/14/19 23:11 Gram Stain - Final Foot Left Assess/Plan/Problems-Billing Assessment: 58 yo M h/o IDDM, afib p/w chronic foot ulcer and associated left leg cellulitis - Patient Problems (1) Cellulitis Comment: Associated with diabetic foot ulcer. Improving on current regimen. Will maintain until tomorrow Cefepime, vanco, flagyl (2) Diabetes Comment: FSG elevated c/w lantus sliding scale glimepiride restart metformin (3) Afib Comment: metoprolol coumadin (4) DVT prophylaxis Comment: - on warfarin
[2019-03-15] MEDS: metFORMIN* 1,000 MG TAB PO SCH (17:18)
[2019-03-15] MEDS: Atorvastatin* 40 MG TAB PO SCH (17:19)
[2019-03-15] MEDS: CMC:Glimepiride (NF) 2 MG TAB PO SCH (21:59)
[2019-03-16] MEDS: metroNIDAZOLE IV 500 MG/100ML* 500 MG/100 ML BAG IVPB SCH ×2 (01:08→12:37)
[2019-03-16] MEDS: Morphine TAB Extended Release (*) 30 MG TAB.ER PO PRN ×2 (05:13→20:14)
[2019-03-16] MEDS ORDERED: Vancomycin Trough Check NOTE FOLLOW UP ONE (06:00)
[2019-03-16] MEDS: Vancomycin(*) 1,000 MG in NS 0.9% 250 ML* 250 ML IV SCH ×3 (06:42→22:15)
[2019-03-16] MEDS: Albuterol/Ipratropium RESP(NF) MDI (Combivent Respimat) INH SCH ×5 (06:44→20:31)
[2019-03-16] MEDS: Fluticasone NASAL SPRAY 50MCG* 16 gm SPRAY BTL BOTH NARES SCH ×2 (07:49→20:21)
[2019-03-16] MEDS: CMC:Glimepiride (NF) 2 MG TAB PO SCH ×2 (07:50→20:20)
[2019-03-16] MEDS: Torsemide TAB* 20 MG PO SCH (07:50)
[2019-03-16] MEDS: Magnesium Oxide TAB* 400 MG PO SCH ×2 (07:50→20:20)
[2019-03-16] MEDS: Escitalopram * 10 MG TAB PO SCH (07:51)
[2019-03-16] MEDS: amLODIPine TAB* 5 MG PO SCH (07:51)
[2019-03-16] MEDS: Spironolactone TAB* 25 MG PO SCH (07:52)
[2019-03-16] MEDS: metFORMIN* 1,000 MG TAB PO SCH ×2 (07:52→18:15)
[2019-03-16] MEDS: Aliskiren TAB* 150 MG PO SCH (07:52)
[2019-03-16] MEDS: Folic Acid TAB* 1 MG PO SCH (07:52)
[2019-03-16] MEDS: Aspirin EC TAB* 81 MG TAB.EC PO SCH (07:52)
[2019-03-16] MEDS: Pregabalin 25 mg CAP (*) PO SCH ×3 (07:53→20:17)
[2019-03-16] MEDS: Umeclidinium 62.5 MDI(NF) MDI INH SCH (07:54)
[2019-03-16] MEDS: Polyethylene Glycol 3350* 17 GM PACKET PO SCH (07:54)
[2019-03-16] MEDS: Insulin LISPRO* 1 UNITS UNIT SUBCUT SCH ×4 (07:54→21:23)
[2019-03-16] MEDS ORDERED: Influenza VAC *QUAD* 2019-20* 0.5 ML SYRINGE IM ONE (09:00)
[2019-03-16] MEDS: Cefepime 1 GM in Dextrose(*) 1 GM/50 ML BAG IV SCH ×2 (10:08→20:46)
[2019-03-16] MEDS: oxyCODONE TAB* 5 MG TAB PO PRN (10:17)
[2019-03-16] MEDS: Benzocaine/Menthol LOZ* 1 LOZENGE PO PRN (12:47)
--- NOTE | 2019-03-16 15:22 | PN ---
Subjective Date of Service: 03/16/19 Interval History: Pain in left leg improved but still present After rolling over in bed felt more short of breath feels like he need s to have a BM Objective Active Medications: Acetaminophen (Tylenol Tab*) 650 mg PO Q6H PRN PRN Reason: MILD PAIN or TEMP > 100.4 Last Admin: 03/15/19 08:41 Dose: 650 mg Albuterol/Ipratropium (Combivent Respimat(Nf)) 1 puff INH QID [facility]; Protocol Last Admin: 03/16/19 13:24 Dose: Not Given Aliskiren (Tekturna Tab*) 150 mg PO DAILY [facility] Last Admin: 03/16/19 07:52 Dose: 150 mg Amlodipine Besylate (Norvasc Tab*) 10 mg PO DAILY [facility] Last Admin: 03/16/19 07:51 Dose: 10 mg Aspirin (Aspirin Ec Tab*) 81 mg PO DAILY [facility] Last Admin: 03/16/19 07:52 Dose: 81 mg Atorvastatin Calcium (Lipitor*) 40 mg PO 1700 [facility] Last Admin: 03/15/19 17:19 Dose: 40 mg Colchicine (Colcrys*) 0.6 mg PO DAILY PRN PRN Reason: PAIN - MODERATE Dextrose (Dextrose 50% Vial 50 Ml*) 25 ml IV PUSH .FOR FS < 60 - SS PRN PRN Reason: FS < 60 Escitalopram Oxalate (Lexapro *) 10 mg PO DAILY [facility] Last Admin: 03/16/19 07:51 Dose: 10 mg Fluticasone Propionate (Flonase Nasal [place] 50mcg*) 2 spray BOTH NARES BEDTIME [facility] Folic Acid (Folvite Tab*) 1 mg PO DAILY [facility] Last Admin: 03/16/19 07:52 Dose: 1 mg Glimepiride (Glimepiride (Nf)) 4 mg PO BID [facility]; Protocol Last Admin: 03/16/19 07:50 Dose: 4 mg Cefepime HCl (Maxipime 1 Gm In Dextrose Duplex (*)) 1 gm in 50 mls @ 100 mls/ hr IV 0900,2100 [facility] Last Admin: 03/16/19 10:08 Dose: 100 mls/hr Metronidazole/Sodium Chloride (Flagyl 500 Mg Ivpb*) 500 mg in 100 mls @ 100 mls /hr IVPB Q12H [facility] Last Admin: 03/16/19 12:37 Dose: 100 mls/hr Vancomycin HCl 1,000 mg/ (Sodium Chloride) 250 mls @ 166.667 mls/hr IV Q8H [facility] Last Admin: 03/16/19 14:47 Dose: 166.667 mls/hr Insulin Glargine (Lantus(*)) 150 units SUBCUT BEDTIME [facility] Last Admin: 03/15/19 22:04 Dose: 150 units Insulin Human Lispro (Humalog*) 0 units SUBCUT ACHS [facility]; Protocol Last Admin: 03/16/19 12:37 Dose: 15 units Magnesium Hydroxide (Milk Of Magnesia Liq*) 30 ml PO BID PRN PRN Reason: CONSTIPATION Magnesium Oxide (Magox 400 Tab*) 400 mg PO BID [facility] Last Admin: 03/16/19 07:50 Dose: 400 mg Metformin HCl (Glucophage*) 1,000 mg PO 0800,1700 [facility] Last Admin: 03/16/19 07:52 Dose: 1,000 mg Metoprolol Succinate (Toprol Xl Tab*) 100 mg PO BEDTIME [facility] Last Admin: 03/15/19 21:59 Dose: 100 mg Morphine Sulfate (Ms Contin(*)) 30 mg PO TID PRN PRN Reason: PAIN Last Admin: 03/16/19 05:13 Dose: 30 mg Ondansetron HCl (Zofran Inj*) 4 mg IV Q6H PRN PRN Reason: NAUSEA Oxycodone HCl (Roxycodone Tab*) 5 mg PO Q6H PRN PRN Reason: PAIN - MODERATE Last Admin: 03/16/19 10:17 Dose: 5 mg Oxycodone HCl (Roxycodone Tab*) 10 mg PO Q6H PRN PRN Reason: PAIN - SEVERE Last Admin: 03/15/19 22:05 Dose: 10 mg Pharmacy Consult (Vancomycin Per Pharmacy*) 1 note FOLLOW UP .VANC PER PHARMACY [facility]; Protocol Polyethylene Glycol/Electrolytes (Miralax*) 17 gm PO DAILY [facility] Last Admin: 03/16/19 07:54 Dose: 17 gm Pregabalin (Lyrica Cap(*)) 75 mg PO TID [facility] Last Admin: 03/16/19 14:47 Dose: 75 mg Senna (Senokot 8.6 Mg Tab*) 1 tab PO BEDTIME PRN PRN Reason: CONSTIPATION Spironolactone (Aldactone Tab*) 50 mg PO DAILY [facility] Last Admin: 03/16/19 07:52 Dose: 50 mg Throat Lozenges (Chloraseptic Mely*) 1 mely PO Q1H PRN PRN Reason: SORE THROAT Last Admin: 03/16/19 12:47 Dose: 1 mely Torsemide (Demadex*) 20 mg PO DAILY [facility] Last Admin: 03/16/19 07:50 Dose: 20 mg Umeclidinium [place] (Incruse Ellipta Mdi (Nf)) 1 inh INH DAILY [facility] Last Admin: 03/16/19 07:54 Dose: Not Given Warfarin Sodium (Coumadin Tab(*)) 7.5 mg PO We@1700 [facility]; Protocol Warfarin Sodium (Coumadin Tab(*)) 3.75 mg PO SuMoTuThFrSa@1700 [facility]; Protocol Last Admin: 03/15/19 17:20 Dose: 3.75 mg Vital Signs - 8 hr 03/16/19 03/16/19 03/16/19 07:23 07:29 07:53 Temperature 97.4 F Pulse Rate 57 Respiratory 18 18 18 Rate Blood Pressure 125/67 (mmHg) O2 Sat by Pulse 98 Oximetry 03/16/19 03/16/19 03/16/19 08:00 09:23 10:17 Temperature Pulse Rate Respiratory 18 20 22 Rate Blood Pressure (mmHg) O2 Sat by Pulse Oximetry 03/16/19 03/16/19 03/16/19 11:47 12:24 14:47 Temperature 97.4 F Pulse Rate 69 Respiratory 18 18 20 Rate Blood Pressure 120/57 (mmHg) O2 Sat by Pulse 96 Oximetry Oxygen Devices in Use Now: CPAP Appearance: lying flat, NAD Eyes: No Scleral Icterus, PERRLA Ears/Nose/Mouth/Throat: NL Teeth, Lips, Gums, Clear Oropharnyx Neck: NL Appearance and Movements; NL JVP, Trachea Midline Respiratory: Symmetrical Chest Expansion and Respiratory Effort, - - rales in left base Cardiovascular: RRR Abdominal: NL Sounds; No Tenderness; No Distention, No Hepatosplenomegaly Extremities: - - left Skin: - - left leg diffusely red from ankle to groin. Groin marked where erythema stops, I also demarcated areas that were eythematous but less so with dotted lines, pretibial area deepest red anteriorly, left anterior later foot will ulceration Neurological: Alert and Oriented x 3 Result Diagrams: 03/15/19 06:08 03/15/19 06:08 Microbiology and Other Data: Microbiology 03/14/19 23:11 Gram Stain - Final Foot Left Assess/Plan/Problems-Billing Assessment: 58 yo M h/o IDDM, afib p/w chronic foot ulcer and associated left leg cellulitis - Patient Problems (1) Cellulitis Comment: Associated with diabetic foot ulcer. Improving on current regimen. Will maintain current regimen Cefepime, vanco, flagyl (2) Diabetes Comment: FSG elevated c/w lantus sliding scale glimepiride restart metformin added on HbA1c but not yet resulted. This pt would benefit from a endocrine follow up as he is on lantus 150 and using high doses of insulin SS (3) Afib Comment: metoprolol coumadin (4) DVT prophylaxis Comment: - on warfarin
[2019-03-16] MEDS: Atorvastatin* 40 MG TAB PO SCH (18:15)
[2019-03-16] MEDS: Warfarin TAB(*) 7.5 MG PO SCH (18:15)
[2019-03-16] MEDS: Metoprolol Succinate XL TAB* 100 MG PO SCH (20:20)
[2019-03-16] MEDS: LORazepam TAB(*) 0.5 MG PO PRN (20:31)
[2019-03-16] MEDS: Insulin GLARGINE(*) 1 UNITS UNIT SUBCUT SCH (21:22)
[2019-03-17] MEDS: metroNIDAZOLE IV 500 MG/100ML* 500 MG/100 ML BAG IVPB SCH (01:24)
[2019-03-17] MEDS: Vancomycin(*) 1,000 MG in NS 0.9% 250 ML* 250 ML IV SCH ×3 (06:05→21:19)
[2019-03-17 06:27] LABS: EGFR African American 78.2 (>60); EGFR Non-African American 64.7 (>60)
[2019-03-17] MEDS: Albuterol/Ipratropium RESP(NF) MDI (Combivent Respimat) INH SCH ×4 (07:39→20:08)
[2019-03-17] MEDS: Umeclidinium 62.5 MDI(NF) MDI INH SCH (07:39)
[2019-03-17] MEDS ORDERED: Albuterol HFA INHALER* 8 gm MDI INH PRN (08:06)
[2019-03-17] MEDS ORDERED: Albuterol/Ipratropium NEB.SOL* Albuterol 2.5 MG/Ipratropium 0.5 MG 3 ML INH PRN (08:07)
[2019-03-17] MEDS ORDERED: Albuterol/Ipratropium NEB.SOL* Albuterol 2.5 MG/Ipratropium 0.5 MG 3 ML ONE (08:14)
[2019-03-17] MEDS: Magnesium Oxide TAB* 400 MG PO SCH ×2 (08:28→20:00)
[2019-03-17] MEDS: Spironolactone TAB* 25 MG PO SCH (08:28)
[2019-03-17] MEDS: Pregabalin 25 mg CAP (*) PO SCH (08:29)
[2019-03-17] MEDS: Aspirin EC TAB* 81 MG TAB.EC PO SCH (08:29)
[2019-03-17] MEDS: Folic Acid TAB* 1 MG PO SCH (08:29)
[2019-03-17] MEDS: Torsemide TAB* 20 MG PO SCH (08:30)
[2019-03-17] MEDS: metFORMIN* 1,000 MG TAB PO SCH ×2 (08:30→16:44)
[2019-03-17] MEDS: amLODIPine TAB* 5 MG PO SCH (08:30)
[2019-03-17] MEDS: Colchicine* 0.6 MG TAB PO PRN (08:31)
[2019-03-17] MEDS: Escitalopram * 10 MG TAB PO SCH (08:31)
[2019-03-17] MEDS: CMC:Glimepiride (NF) 2 MG TAB PO SCH ×2 (08:32→19:59)
[2019-03-17] MEDS: Aliskiren TAB* 150 MG PO SCH (08:32)
[2019-03-17] MEDS: Insulin LISPRO* 1 UNITS UNIT SUBCUT SCH ×4 (08:33→20:01)
[2019-03-17] MEDS: Polyethylene Glycol 3350* 17 GM PACKET PO SCH (08:33)
[2019-03-17] MEDS: Cefepime 1 GM in Dextrose(*) 1 GM/50 ML BAG IV SCH ×2 (08:33→20:07)
[2019-03-17] MEDS: Morphine TAB Extended Release (*) 30 MG TAB.ER PO PRN ×2 (08:51→14:11)
[2019-03-17 09:53] LABS: INR 1.5 (0.82-1.09)
--- NOTE | 2019-03-17 10:33 | PN ---
Subjective Date of Service: 03/17/19 Interval History: Pt c/o pain in b/l feet and left calf. Had been a pt in a pain clinic, but somehow was discharged from there. Objective Active Medications: Acetaminophen (Tylenol Tab*) 650 mg PO Q6H PRN PRN Reason: MILD PAIN or TEMP > 100.4 Last Admin: 03/15/19 08:41 Dose: 650 mg Albuterol (Ventolin Hfa Inhaler*) 1 puff INH Q4H PRN PRN Reason: SOB/WHEEZING Albuterol/Ipratropium (Combivent Respimat(Nf)) 1 puff INH QID [facility]; Protocol Last Admin: 03/17/19 07:39 Dose: Not Given Albuterol/Ipratropium (Duoneb (Albuterol 2.5 Mg/Ipratropium 0.5 Mg)) 1 neb INH Q4H PRN PRN Reason: SOB/WHEEZING Last Admin: 03/17/19 08:16 Dose: 1 neb Aliskiren (Tekturna Tab*) 150 mg PO DAILY [facility] Last Admin: 03/17/19 08:32 Dose: 150 mg Amlodipine Besylate (Norvasc Tab*) 10 mg PO DAILY [facility] Last Admin: 03/17/19 08:30 Dose: 10 mg Aspirin (Aspirin Ec Tab*) 81 mg PO DAILY [facility] Last Admin: 03/17/19 08:29 Dose: 81 mg Atorvastatin Calcium (Lipitor*) 40 mg PO 1700 [facility] Last Admin: 03/16/19 18:15 Dose: 40 mg Colchicine (Colcrys*) 0.6 mg PO DAILY PRN PRN Reason: PAIN - MODERATE Last Admin: 03/17/19 08:31 Dose: 0.6 mg Dextrose (Dextrose 50% Vial 50 Ml*) 25 ml IV PUSH .FOR FS < 60 - SS PRN PRN Reason: FS < 60 Escitalopram Oxalate (Lexapro *) 10 mg PO DAILY [facility] Last Admin: 03/17/19 08:31 Dose: 10 mg Fluticasone Propionate (Flonase Nasal [place] 50mcg*) 2 spray BOTH NARES BEDTIME [facility] Last Admin: 03/16/19 20:21 Dose: 2 spray Folic Acid (Folvite Tab*) 1 mg PO DAILY [facility] Last Admin: 03/17/19 08:29 Dose: 1 mg Glimepiride (Glimepiride (Nf)) 4 mg PO BID [facility]; Protocol Last Admin: 03/17/19 08:32 Dose: 4 mg Cefepime HCl (Maxipime 1 Gm In Dextrose Duplex (*)) 1 gm in 50 mls @ 100 mls/ hr IV 0900,2100 [facility] Last Admin: 03/17/19 08:33 Dose: 100 mls/hr Vancomycin HCl 1,000 mg/ (Sodium Chloride) 250 mls @ 166.667 mls/hr IV Q8H [facility] Last Admin: 03/17/19 06:05 Dose: 166.667 mls/hr Insulin Glargine (Lantus(*)) 150 units SUBCUT BEDTIME [facility] Last Admin: 03/16/19 21:22 Dose: 150 units Insulin Human Lispro (Humalog*) 0 units SUBCUT ACHS [facility]; Protocol Last Admin: 03/17/19 08:33 Dose: 9 units Lorazepam (Ativan Tab(*)) 0.5 mg PO BID PRN PRN Reason: ANXIETY Last Admin: 03/16/19 20:31 Dose: 0.5 mg Magnesium Hydroxide (Milk Of Magnesia Liq*) 30 ml PO BID PRN PRN Reason: CONSTIPATION Magnesium Oxide (Magox 400 Tab*) 400 mg PO BID [facility] Last Admin: 03/17/19 08:28 Dose: 400 mg Metformin HCl (Glucophage*) 1,000 mg PO 0800,1700 [facility] Last Admin: 03/17/19 08:30 Dose: 1,000 mg Metoprolol Succinate (Toprol Xl Tab*) 100 mg PO BEDTIME [facility] Last Admin: 03/16/19 20:20 Dose: 100 mg Morphine Sulfate (Ms Contin(*)) 30 mg PO TID PRN PRN Reason: PAIN Last Admin: 03/17/19 08:51 Dose: 30 mg Ondansetron HCl (Zofran Inj*) 4 mg IV Q6H PRN PRN Reason: NAUSEA Oxycodone HCl (Roxycodone Tab*) 5 mg PO Q6H PRN PRN Reason: PAIN - MODERATE Last Admin: 03/16/19 10:17 Dose: 5 mg Oxycodone HCl (Roxycodone Tab*) 10 mg PO Q6H PRN PRN Reason: PAIN - SEVERE Last Admin: 03/15/19 22:05 Dose: 10 mg Pharmacy Consult (Vancomycin Per Pharmacy*) 1 note FOLLOW UP .VANC PER PHARMACY [facility]; Protocol Polyethylene Glycol/Electrolytes (Miralax*) 17 gm PO DAILY [facility] Last Admin: 03/17/19 08:33 Dose: 17 gm Pregabalin (Lyrica Cap(*)) 75 mg PO TID [facility] Last Admin: 03/17/19 08:29 Dose: 75 mg Senna (Senokot 8.6 Mg Tab*) 1 tab PO BEDTIME PRN PRN Reason: CONSTIPATION Spironolactone (Aldactone Tab*) 50 mg PO DAILY [facility] Last Admin: 03/17/19 08:28 Dose: 50 mg Throat Lozenges (Chloraseptic Mely*) 1 mely PO Q1H PRN PRN Reason: SORE THROAT Last Admin: 03/16/19 12:47 Dose: 1 mely Torsemide (Demadex*) 20 mg PO DAILY [facility] Last Admin: 03/17/19 08:30 Dose: 20 mg Umeclidinium [place] (Incruse Ellipta Mdi (Nf)) 1 inh INH DAILY [facility] Last Admin: 03/17/19 07:39 Dose: Not Given Warfarin Sodium (Coumadin Tab(*)) 7.5 mg PO We@1700 [facility]; Protocol Warfarin Sodium (Coumadin Tab(*)) 3.75 mg PO SuMoTuThFrSa@1700 [facility]; Protocol Last Admin: 03/16/19 18:15 Dose: 3.75 mg Vital Signs - 8 hr 03/17/19 03/17/19 03/17/19 04:40 07:15 08:24 Temperature 97.8 F 97 F Pulse Rate 56 52 57 Respiratory 22 22 16 Rate Blood Pressure 120/59 110/59 (mmHg) O2 Sat by Pulse 99 100 99 Oximetry 03/17/19 03/17/19 08:29 08:51 Temperature Pulse Rate Respiratory 20 20 Rate Blood Pressure (mmHg) O2 Sat by Pulse Oximetry Oxygen Devices in Use Now: Nasal Cannula Appearance: 58 yo M in nAD, aAOx3 Eyes: No Scleral Icterus, PERRLA Ears/Nose/Mouth/Throat: NL Teeth, Lips, Gums, Mucous Membranes Moist Neck: NL Appearance and Movements; NL JVP, Trachea Midline Respiratory: Symmetrical Chest Expansion and Respiratory Effort, Clear to Auscultation Cardiovascular: NL Sounds; No Murmurs; No JVD, RRR Abdominal: NL Sounds; No Tenderness; No Distention Lymphatic: No Cervical Adenopathy Extremities: - - b/l LE's edema L >>R Skin: - - left bottom of foot ulcer at 2 cm -shallow, bottom covered with slough , celluliits spereading from left foot up to left mid thigh, left calf with erythema and blistering-no open wounds Neurological: Alert and Oriented x 3, NL Muscle Strength and Tone Result Diagrams: 03/15/19 06:08 03/17/19 05:35 Microbiology and Other Data: Microbiology 03/14/19 23:11 Gram Stain - Final Foot Left Assess/Plan/Problems-Billing Assessment: 58 yo M h/o IDDM, afib p/w chronic foot ulcer and associated left leg cellulitis Pt uses 02 at home - Patient Problems (1) Afib Comment: metoprolol coumadin- titrating up the dose for subtherapeutic INR in regular rhythm today (2) Cellulitis Comment: Associated with diabetic foot ulcer. Improving on current regimen. Will maintain current regimen Cefepime, vanco-d/c flagyl (3) Diabetes Comment: FSG elevated c/w lantus sliding scale glimepiride restarted metformin added on HbA1c but not yet resulted. This pt would benefit from a endocrine follow up as he is on lantus 150 and using high doses of insulin SS (4) CKD (chronic kidney disease) stage 3, GFR 30-59 ml/min Comment: -At baseline (5) Diastolic heart failure Comment: -HFpEF, EF 60% in 2015 with mild relaxation dysfxn -Continue diuretic regimen -euvolemic today (6) COPD (chronic obstructive pulmonary disease) Comment: Stable with no s/s exacerbation -O2 dependent on 3L NC at home (7) Neuropathic pain Comment: increasing Lyrica from 75 mg to 100 mg TID (8) DVT prophylaxis Comment: - on warfarin Status and Disposition: inpatient
[2019-03-17] MEDS: oxyCODONE TAB* 5 MG TAB PO PRN ×2 (11:46→16:58)
[2019-03-17] MEDS ORDERED: Insulin GLARGINE(*) 1 UNITS UNIT SUBCUT ONE (11:54)
[2019-03-17] MEDS: Pregabalin 100 mg CAP (*) PO SCH ×2 (14:10→20:00)
[2019-03-17] MEDS: Atorvastatin* 40 MG TAB PO SCH (16:44)
[2019-03-17] MEDS ORDERED: Warfarin TAB(*) 5 MG PO SCH (17:00)
[2019-03-17] MEDS: Fluticasone NASAL SPRAY 50MCG* 16 gm SPRAY BTL BOTH NARES SCH (19:58)
[2019-03-17] MEDS: Metoprolol Succinate XL TAB* 100 MG PO SCH (20:00)
[2019-03-17] MEDS: Insulin GLARGINE(*) 1 UNITS UNIT SUBCUT SCH (20:01)
[2019-03-18] MEDS: oxyCODONE TAB* 5 MG TAB PO PRN ×3 (03:11→16:30)
[2019-03-18] MEDS: Vancomycin(*) 1,000 MG in NS 0.9% 250 ML* 250 ML IV SCH (05:15)
[2019-03-18 05:42] LABS: INR 1.73 (0.82-1.09)
[2019-03-18 05:56] LABS: EGFR African American 77.5 (>60)
[2019-03-18 06:01] LABS: Vancomycin Trough 16.9 mcg/mL
[2019-03-18] MEDS: metFORMIN* 1,000 MG TAB PO SCH ×2 (07:30→16:31)
[2019-03-18] MEDS: Magnesium Oxide TAB* 400 MG PO SCH ×2 (07:30→21:33)
[2019-03-18] MEDS: Folic Acid TAB* 1 MG PO SCH (07:30)
[2019-03-18] MEDS: Pregabalin 100 mg CAP (*) PO SCH ×3 (07:30→21:34)
[2019-03-18] MEDS: amLODIPine TAB* 5 MG PO SCH (07:31)
[2019-03-18] MEDS: Aspirin EC TAB* 81 MG TAB.EC PO SCH (07:31)
[2019-03-18] MEDS: Morphine TAB Extended Release (*) 30 MG TAB.ER PO PRN ×2 (07:31→21:47)
[2019-03-18] MEDS: Spironolactone TAB* 25 MG PO SCH (07:31)
[2019-03-18] MEDS: Polyethylene Glycol 3350* 17 GM PACKET PO SCH (07:32)
[2019-03-18] MEDS ORDERED: Dextrose 50% VIAL 50 ml IV PUSH PRN (07:35)
[2019-03-18] MEDS: Aliskiren TAB* 150 MG PO SCH (07:35)
[2019-03-18] MEDS: Escitalopram * 10 MG TAB PO SCH (07:36)
[2019-03-18] MEDS: Insulin LISPRO* 1 UNITS UNIT SUBCUT SCH ×7 (07:36→21:41)
[2019-03-18] MEDS: Torsemide TAB* 20 MG PO SCH (07:36)
[2019-03-18] MEDS: CMC:Glimepiride (NF) 2 MG TAB PO SCH ×2 (07:36→21:34)
[2019-03-18] MEDS: Albuterol/Ipratropium RESP(NF) MDI (Combivent Respimat) INH SCH ×4 (07:45→19:42)
[2019-03-18] MEDS: Umeclidinium 62.5 MDI(NF) MDI INH SCH (07:46)
[2019-03-18] MEDS: Cefepime 1 GM in Dextrose(*) 1 GM/50 ML BAG IV SCH ×2 (08:41→21:49)
[2019-03-18] MEDS: Colchicine* 0.6 MG TAB PO PRN ×2 (08:47→08:48)
[2019-03-18] MEDS: Insulin GLARGINE(*) 1 UNITS UNIT SUBCUT SCH ×2 (08:48→21:38)
[2019-03-18] MEDS: Acetaminophen TAB* 325 MG PO PRN ×2 (11:09→21:47)
[2019-03-18] MEDS: Torsemide TAB 10 MG PO SCH (11:10)
--- NOTE | 2019-03-18 14:22 | PN ---
Subjective Date of Service: 03/18/19 Interval History: Pt c/o pain in LLE and increased SOB ever since his diuretics were held at admission Objective Active Medications: Acetaminophen (Tylenol Tab*) 650 mg PO Q6H PRN PRN Reason: MILD PAIN or TEMP > 100.4 Last Admin: 03/18/19 11:09 Dose: 650 mg Albuterol (Ventolin Hfa Inhaler*) 1 puff INH Q4H PRN PRN Reason: SOB/WHEEZING Albuterol/Ipratropium (Combivent Respimat(Nf)) 1 puff INH QID [facility]; Protocol Last Admin: 03/18/19 12:58 Dose: Not Given Albuterol/Ipratropium (Duoneb (Albuterol 2.5 Mg/Ipratropium 0.5 Mg)) 1 neb INH Q4H PRN PRN Reason: SOB/WHEEZING Last Admin: 03/17/19 08:16 Dose: 1 neb Aliskiren (Tekturna Tab*) 150 mg PO DAILY [facility] Last Admin: 03/18/19 07:35 Dose: 150 mg Amlodipine Besylate (Norvasc Tab*) 10 mg PO DAILY [facility] Last Admin: 03/18/19 07:31 Dose: 10 mg Aspirin (Aspirin Ec Tab*) 81 mg PO DAILY [facility] Last Admin: 03/18/19 07:31 Dose: 81 mg Atorvastatin Calcium (Lipitor*) 40 mg PO 1700 [facility] Last Admin: 03/17/19 16:44 Dose: 40 mg Colchicine (Colcrys*) 0.6 mg PO DAILY PRN PRN Reason: PAIN - MODERATE Last Admin: 03/18/19 08:48 Dose: 0.6 mg Dextrose (Dextrose 50% Vial 50 Ml*) 25 ml IV PUSH .FOR FS < 60 - SS PRN PRN Reason: FS < 60 Dextrose (Dextrose 50% Vial 50 Ml*) 25 ml IV PUSH .FOR FS < 60 - SS PRN PRN Reason: FS < 60 Escitalopram Oxalate (Lexapro *) 10 mg PO DAILY [facility] Last Admin: 03/18/19 07:36 Dose: 10 mg Fluticasone Propionate (Flonase Nasal [place] 50mcg*) 2 spray BOTH NARES BEDTIME [facility] Last Admin: 03/17/19 19:58 Dose: 2 spray Folic Acid (Folvite Tab*) 1 mg PO DAILY [facility] Last Admin: 03/18/19 07:30 Dose: 1 mg Glimepiride (Glimepiride (Nf)) 4 mg PO BID [facility]; Protocol Last Admin: 03/18/19 07:36 Dose: 4 mg Cefepime HCl (Maxipime 1 Gm In Dextrose Duplex (*)) 1 gm in 50 mls @ 100 mls/ hr IV 0900,2100 [facility] Last Admin: 03/18/19 08:41 Dose: 100 mls/hr Vancomycin HCl 1,500 mg/ (Sodium Chloride) 250 mls @ 166.667 mls/hr IVPB Q12H [facility] Insulin Glargine (Lantus(*)) 150 units SUBCUT BEDTIME [facility] Last Admin: 03/17/19 20:01 Dose: 150 units Insulin Glargine (Lantus(*)) 20 units SUBCUT DAILY [facility] Last Admin: 03/18/19 08:48 Dose: 20 units Insulin Human Lispro (Humalog*) 0 units SUBCUT ACHS [facility]; Protocol Last Admin: 03/18/19 12:55 Dose: 6 units Insulin Human Lispro (Humalog*) 10 units SUBCUT AC [facility] Last Admin: 03/18/19 12:55 Dose: 10 units Lorazepam (Ativan Tab(*)) 0.5 mg PO BID PRN PRN Reason: ANXIETY Last Admin: 03/16/19 20:31 Dose: 0.5 mg Magnesium Hydroxide (Milk Of Magnesia Liq*) 30 ml PO BID PRN PRN Reason: CONSTIPATION Magnesium Oxide (Magox 400 Tab*) 400 mg PO BID [facility] Last Admin: 03/18/19 07:30 Dose: 400 mg Metformin HCl (Glucophage*) 1,000 mg PO 0800,1700 [facility] Last Admin: 03/18/19 07:30 Dose: 1,000 mg Metolazone (Zaroxolyn Tab*) 5 mg PO DAILY@0830 [facility] Metoprolol Succinate (Toprol Xl Tab*) 100 mg PO BEDTIME [facility] Last Admin: 03/17/19 20:00 Dose: 100 mg Morphine Sulfate (Ms Contin(*)) 30 mg PO TID PRN PRN Reason: PAIN Last Admin: 03/18/19 07:31 Dose: 30 mg Ondansetron HCl (Zofran Inj*) 4 mg IV Q6H PRN PRN Reason: NAUSEA Oxycodone HCl (Roxycodone Tab*) 5 mg PO Q6H PRN PRN Reason: PAIN - MODERATE Last Admin: 03/18/19 03:11 Dose: 5 mg Oxycodone HCl (Roxycodone Tab*) 10 mg PO Q6H PRN PRN Reason: PAIN - SEVERE Last Admin: 03/18/19 08:47 Dose: 10 mg Pharmacy Consult (Vancomycin Per Pharmacy*) 1 note FOLLOW UP .VANC PER PHARMACY [facility]; Protocol Pharmacy Profile Note (Vancomycin Trough Check) 1 note FOLLOW UP 0600 ONE Stop: 03/21/19 06:01 Polyethylene Glycol/Electrolytes (Miralax*) 17 gm PO DAILY [facility] Last Admin: 03/18/19 07:32 Dose: 17 gm Pregabalin (Lyrica Cap(*)) 100 mg PO TID [facility] Last Admin: 03/18/19 12:56 Dose: 100 mg Senna (Senokot 8.6 Mg Tab*) 1 tab PO BEDTIME PRN PRN Reason: CONSTIPATION Spironolactone (Aldactone Tab*) 50 mg PO DAILY [facility] Last Admin: 03/18/19 07:31 Dose: 50 mg Throat Lozenges (Chloraseptic Mely*) 1 mely PO Q1H PRN PRN Reason: SORE THROAT Last Admin: 03/16/19 12:47 Dose: 1 mely Torsemide (Torsemide) 40 mg PO DAILY [facility] Last Admin: 03/18/19 11:10 Dose: 40 mg Umeclidinium [place] (Incruse Ellipta Mdi (Nf)) 1 inh INH DAILY [facility] Last Admin: 03/18/19 07:46 Dose: Not Given Warfarin Sodium (Coumadin Tab(*)) 5 mg PO DAILY@1700 [facility]; Protocol Last Admin: 03/17/19 16:44 Dose: 5 mg Vital Signs - 8 hr 03/18/19 03/18/19 03/18/19 07:15 07:30 07:31 Temperature 98.4 F Pulse Rate 78 Respiratory 19 22 22 Rate Blood Pressure 107/68 (mmHg) O2 Sat by Pulse 99 Oximetry 03/18/19 03/18/19 03/18/19 08:00 08:47 10:09 Temperature Pulse Rate Respiratory 20 20 18 Rate Blood Pressure (mmHg) O2 Sat by Pulse Oximetry 03/18/19 03/18/19 03/18/19 11:10 11:15 12:56 Temperature 97 F Pulse Rate 68 Respiratory 18 16 22 Rate Blood Pressure 103/50 (mmHg) O2 Sat by Pulse 98 Oximetry Oxygen Devices in Use Now: Nasal Cannula Appearance: 58 yo m in nAD, aAOx3 Eyes: No Scleral Icterus, PERRLA Ears/Nose/Mouth/Throat: NL Teeth, Lips, Gums, Mucous Membranes Moist Neck: NL Appearance and Movements; NL JVP, Trachea Midline Respiratory: Symmetrical Chest Expansion and Respiratory Effort, Clear to Auscultation Cardiovascular: NL Sounds; No Murmurs; No JVD, RRR Abdominal: NL Sounds; No Tenderness; No Distention Lymphatic: No Cervical Adenopathy Extremities: No Clubbing, Cyanosis, - - +1 pitting edema L>R Skin: No Nodules or Sclerosis, - - bottom of left foot ulcer-small crater -like at 1 cm -bottom covered with slough. Cellulitis surrounding entire left calf and mid left thigh improving Neurological: Alert and Oriented x 3, NL Muscle Strength and Tone Result Diagrams: 03/15/19 06:08 03/18/19 05:10 Microbiology and Other Data: Microbiology 03/14/19 23:11 Gram Stain - Final Foot Left Assess/Plan/Problems-Billing Assessment: 58 yo M h/o IDDM, afib p/w chronic foot ulcer and associated left leg cellulitis Pt uses 02 at home - Patient Problems (1) Afib Comment: metoprolol coumadin- titrating up the dose for subtherapeutic INR in regular rhythm today (2) Cellulitis Comment: Associated with diabetic foot ulcer. Improving on current regimen. Will maintain current regimen Improving Cefepime, vanco-d/c'd flagyl (3) Diabetes Comment: Uncontroled added 20 u Lantus in AM to 150 QHS, adding Lispro 10 U with each meal cont ISS glimepiride HbA1C 12.4 restarted metformin (4) CKD (chronic kidney disease) stage 3, GFR 30-59 ml/min Comment: -At baseline (5) Diastolic heart failure Comment: -HFpEF, EF 60% in 2014 with mild relaxation dysfxn -Pt's torsemide and metalozone were held at admission and will be restarted -in mild acute diastolic CHF today (6) COPD (chronic obstructive pulmonary disease) Comment: Stable with no s/s exacerbation -O2 dependent on 3L NC at home (7) Neuropathic pain Comment: increased Lyrica from 75 mg to 100 mg TID Pt requires significant amount of narcotics ans his pain is still uncontrolled (8) NEAL (obstructive sleep apnea) Comment: -Continue home CPAP use (9) DVT prophylaxis Comment: - on warfarin Status and Disposition: inpatient
[2019-03-18] MEDS: Warfarin TAB(*) 7.5 MG PO SCH (16:29)
[2019-03-18] MEDS: Atorvastatin* 40 MG TAB PO SCH (16:29)
[2019-03-18] MEDS: Vancomycin(*) 1,500 MG in NS 0.9% 250 ML* 250 ML IVPB SCH (17:34)
[2019-03-18] MEDS: Metoprolol Succinate XL TAB* 100 MG PO SCH (21:33)
[2019-03-18] MEDS: Fluticasone NASAL SPRAY 50MCG* 16 gm SPRAY BTL BOTH NARES SCH (21:36)
[2019-03-18] MEDS: Benzocaine/Menthol LOZ* 1 LOZENGE PO PRN (21:47)
[2019-03-19] MEDS: Vancomycin(*) 1,500 MG in NS 0.9% 250 ML* 250 ML IVPB SCH ×2 (04:37→18:23)
[2019-03-19] MEDS: oxyCODONE TAB* 5 MG TAB PO PRN ×2 (06:39→18:20)
[2019-03-19] MEDS: Albuterol/Ipratropium RESP(NF) MDI (Combivent Respimat) INH SCH ×4 (07:24→19:31)
[2019-03-19] MEDS: Umeclidinium 62.5 MDI(NF) MDI INH SCH (07:24)
[2019-03-19 08:16] LABS: INR 2.45 (0.82-1.09)
[2019-03-19] MEDS: Acetaminophen TAB* 325 MG PO PRN ×2 (08:26→16:16)
[2019-03-19] MEDS: Spironolactone TAB* 25 MG PO SCH (08:27)
[2019-03-19] MEDS: Aspirin EC TAB* 81 MG TAB.EC PO SCH (08:28)
[2019-03-19] MEDS: Metolazone TAB* 5 MG PO SCH (08:28)
[2019-03-19] MEDS: Folic Acid TAB* 1 MG PO SCH (08:28)
[2019-03-19] MEDS: Magnesium Oxide TAB* 400 MG PO SCH ×2 (08:29→22:05)
[2019-03-19] MEDS: Pregabalin 100 mg CAP (*) PO SCH ×3 (08:29→22:05)
[2019-03-19] MEDS: metFORMIN* 1,000 MG TAB PO SCH ×2 (08:29→16:17)
[2019-03-19] MEDS: Escitalopram * 10 MG TAB PO SCH (08:30)
[2019-03-19] MEDS: amLODIPine TAB* 5 MG PO SCH (08:32)
[2019-03-19] MEDS: Aliskiren TAB* 150 MG PO SCH (08:32)
[2019-03-19] MEDS: CMC:Glimepiride (NF) 2 MG TAB PO SCH ×2 (08:33→22:06)
[2019-03-19] MEDS: Polyethylene Glycol 3350* 17 GM PACKET PO SCH (08:34)
[2019-03-19] MEDS: Insulin LISPRO* 1 UNITS UNIT SUBCUT SCH ×7 (08:45→22:07)
[2019-03-19] MEDS: Insulin GLARGINE(*) 1 UNITS UNIT SUBCUT SCH ×2 (08:47→22:07)
[2019-03-19] MEDS: Cefepime 1 GM in Dextrose(*) 1 GM/50 ML BAG IV SCH ×2 (08:49→22:04)
[2019-03-19] MEDS: Morphine TAB Extended Release (*) 30 MG TAB.ER PO PRN ×3 (09:59→22:04)
[2019-03-19] MEDS: Torsemide TAB 10 MG PO SCH (09:59)
--- NOTE | 2019-03-19 15:43 | PN ---
Subjective Date of Service: 03/19/19 Interval History: Continued left leg pain this AM was feeling more SOB with movement but improved with CPAP Discussed going to [facility] which he would like to avoid but does acknowledge that he will have difficulty caring for himself and his leg alone Objective Active Medications: Acetaminophen (Tylenol Tab*) 650 mg PO Q6H PRN PRN Reason: MILD PAIN or TEMP > 100.4 Last Admin: 03/19/19 08:26 Dose: 650 mg Albuterol (Ventolin Hfa Inhaler*) 1 puff INH Q4H PRN PRN Reason: SOB/WHEEZING Albuterol/Ipratropium (Combivent Respimat(Nf)) 1 puff INH QID [facility]; Protocol Last Admin: 03/19/19 12:02 Dose: Not Given Albuterol/Ipratropium (Duoneb (Albuterol 2.5 Mg/Ipratropium 0.5 Mg)) 1 neb INH Q4H PRN PRN Reason: SOB/WHEEZING Last Admin: 03/17/19 08:16 Dose: 1 neb Aliskiren (Tekturna Tab*) 150 mg PO DAILY [facility] Last Admin: 03/19/19 08:32 Dose: 150 mg Amlodipine Besylate (Norvasc Tab*) 10 mg PO DAILY [facility] Last Admin: 03/19/19 08:32 Dose: 10 mg Aspirin (Aspirin Ec Tab*) 81 mg PO DAILY [facility] Last Admin: 03/19/19 08:28 Dose: 81 mg Atorvastatin Calcium (Lipitor*) 40 mg PO 1700 [facility] Last Admin: 03/18/19 16:29 Dose: 40 mg Colchicine (Colcrys*) 0.6 mg PO DAILY PRN PRN Reason: PAIN - MODERATE Last Admin: 03/18/19 08:48 Dose: 0.6 mg Dextrose (Dextrose 50% Vial 50 Ml*) 25 ml IV PUSH .FOR FS < 60 - SS PRN PRN Reason: FS < 60 Dextrose (Dextrose 50% Vial 50 Ml*) 25 ml IV PUSH .FOR FS < 60 - SS PRN PRN Reason: FS < 60 Escitalopram Oxalate (Lexapro *) 10 mg PO DAILY [facility] Last Admin: 03/19/19 08:30 Dose: 10 mg Fluticasone Propionate (Flonase Nasal [place] 50mcg*) 2 spray BOTH NARES BEDTIME [facility] Last Admin: 12/31/19 21:36 Dose: 2 spray Folic Acid (Folvite Tab*) 1 mg PO DAILY [facility] Last Admin: 03/19/19 08:28 Dose: 1 mg Glimepiride (Glimepiride (Nf)) 4 mg PO BID [facility]; Protocol Last Admin: 03/19/19 08:33 Dose: 4 mg Cefepime HCl (Maxipime 1 Gm In Dextrose Duplex (*)) 1 gm in 50 mls @ 100 mls/ hr IV 0900,2100 [facility] Last Admin: 03/19/19 08:49 Dose: 100 mls/hr Vancomycin HCl 1,500 mg/ (Sodium Chloride) 250 mls @ 166.667 mls/hr IVPB Q12H [facility] Last Admin: 03/19/19 04:37 Dose: 166.667 mls/hr Insulin Glargine (Lantus(*)) 150 units SUBCUT BEDTIME [facility] Last Admin: 03/18/19 21:38 Dose: 150 units Insulin Glargine (Lantus(*)) 20 units SUBCUT DAILY [facility] Last Admin: 03/19/19 08:47 Dose: 20 units Insulin Human Lispro (Humalog*) 0 units SUBCUT ACHS [facility]; Protocol Last Admin: 03/19/19 13:13 Dose: 9 units Insulin Human Lispro (Humalog*) 10 units SUBCUT AC [facility] Last Admin: 03/19/19 13:13 Dose: 10 units Lorazepam (Ativan Tab(*)) 0.5 mg PO BID PRN PRN Reason: ANXIETY Last Admin: 03/16/19 20:31 Dose: 0.5 mg Magnesium Hydroxide (Milk Of Magnesia Liq*) 30 ml PO BID PRN PRN Reason: CONSTIPATION Magnesium Oxide (Magox 400 Tab*) 400 mg PO BID [facility] Last Admin: 03/19/19 08:29 Dose: 400 mg Metformin HCl (Glucophage*) 1,000 mg PO 0800,1700 [facility] Last Admin: 03/19/19 08:29 Dose: 1,000 mg Metolazone (Zaroxolyn Tab*) 5 mg PO DAILY@0830 [facility] Last Admin: 03/19/19 08:28 Dose: 5 mg Metoprolol Succinate (Toprol Xl Tab*) 100 mg PO BEDTIME [facility] Last Admin: 03/18/19 21:33 Dose: 100 mg Morphine Sulfate (Ms Contin(*)) 30 mg PO TID PRN PRN Reason: PAIN Last Admin: 03/19/19 13:11 Dose: 30 mg Ondansetron HCl (Zofran Inj*) 4 mg IV Q6H PRN PRN Reason: NAUSEA Oxycodone HCl (Roxycodone Tab*) 5 mg PO Q6H PRN PRN Reason: PAIN - MODERATE Last Admin: 03/18/19 03:11 Dose: 5 mg Oxycodone HCl (Roxycodone Tab*) 10 mg PO Q6H PRN PRN Reason: PAIN - SEVERE Last Admin: 03/19/19 06:39 Dose: 10 mg Pharmacy Consult (Vancomycin Per Pharmacy*) 1 note FOLLOW UP .VANC PER PHARMACY [facility]; Protocol Pharmacy Profile Note (Vancomycin Trough Check) 1 note FOLLOW UP 0600 ONE Stop: 03/21/19 06:01 Polyethylene Glycol/Electrolytes (Miralax*) 17 gm PO DAILY [facility] Last Admin: 03/19/19 08:34 Dose: 17 gm Pregabalin (Lyrica Cap(*)) 100 mg PO TID [facility] Last Admin: 03/19/19 13:12 Dose: 100 mg Senna (Senokot 8.6 Mg Tab*) 1 tab PO BEDTIME PRN PRN Reason: CONSTIPATION Spironolactone (Aldactone Tab*) 50 mg PO DAILY [facility] Last Admin: 03/19/19 08:27 Dose: 50 mg Throat Lozenges (Chloraseptic Mely*) 1 mely PO Q1H PRN PRN Reason: SORE THROAT Last Admin: 03/18/19 21:47 Dose: 1 mely Torsemide (Torsemide) 40 mg PO DAILY [facility] Last Admin: 03/19/19 09:59 Dose: 40 mg Umeclidinium [place] (Incruse Ellipta Mdi (Nf)) 1 inh INH DAILY [facility] Last Admin: 03/19/19 07:24 Dose: Not Given Warfarin Sodium (Coumadin Tab(*)) 7.5 mg PO DAILY@1700 [facility]; Protocol Last Admin: 03/18/19 16:29 Dose: 7.5 mg Vital Signs - 8 hr 03/19/19 03/19/19 03/19/19 08:00 08:29 10:18 Temperature 97.3 F Pulse Rate 64 Respiratory 18 20 16 Rate Blood Pressure 124/64 (mmHg) O2 Sat by Pulse 99 Oximetry 03/19/19 03/19/19 03/19/19 13:11 13:12 13:17 Temperature Pulse Rate Respiratory 18 18 18 Rate Blood Pressure (mmHg) O2 Sat by Pulse Oximetry 03/19/19 14:42 Temperature 98.7 F Pulse Rate 68 Respiratory 22 Rate Blood Pressure 132/52 (mmHg) O2 Sat by Pulse 99 Oximetry Oxygen Devices in Use Now: Nasal Cannula Appearance: obese, NAD Eyes: No Scleral Icterus, PERRLA Ears/Nose/Mouth/Throat: NL Teeth, Lips, Gums Neck: NL Appearance and Movements; NL JVP, Trachea Midline Respiratory: Symmetrical Chest Expansion and Respiratory Effort, Clear to Auscultation Cardiovascular: RRR Abdominal: NL Sounds; No Tenderness; No Distention, No Hepatosplenomegaly Extremities: - - left greater than right edema Skin: - - left leg with erythema extending from ankle to groin, decreased from area of demarcation, areas of leg that are clearing, ulcer and left lateral foot with minimal surrounding erythema Neurological: Alert and Oriented x 3 Result Diagrams: 03/15/19 06:08 03/18/19 05:10 Microbiology and Other Data: Microbiology 03/14/19 23:11 Gram Stain - Final Foot Left Assess/Plan/Problems-Billing Assessment: 58 yo M h/o IDDM, afib p/w chronic foot ulcer and associated left leg cellulitis Pt uses 02 at home - Patient Problems (1) Cellulitis Comment: Associated with diabetic foot ulcer. Improving on current regimen. Will maintain current regimen Improving Cefepime, vanco d/c'd flagyl (2) Diabetes Comment: Uncontrolled - HbA1C 12.4 added 20 u Lantus (03/18) in AM to 150 QHS adding Lispro 10 U with each meal (03/18) cont ISS glimepiride restarted metformin (3) Afib Comment: metoprolol coumadin (4) DVT prophylaxis Comment: - on warfarin Status and Disposition: inpatient
[2019-03-19] MEDS: Atorvastatin* 40 MG TAB PO SCH (16:16)
[2019-03-19] MEDS: Warfarin TAB(*) 7.5 MG PO SCH (16:18)
[2019-03-19] MEDS ORDERED: Warfarin TAB(*) 7.5 MG PO SCH (17:00)
[2019-03-19] MEDS: Metoprolol Succinate XL TAB* 100 MG PO SCH (22:05)
[2019-03-19] MEDS: Fluticasone NASAL SPRAY 50MCG* 16 gm SPRAY BTL BOTH NARES SCH (22:06)
[2019-03-19] MEDS: Benzocaine/Menthol LOZ* 1 LOZENGE PO PRN (22:37)
[2019-03-20] MEDS: Acetaminophen TAB* 325 MG PO PRN ×3 (02:43→21:19)
[2019-03-20] MEDS: oxyCODONE TAB* 5 MG TAB PO PRN ×3 (02:43→21:18)
[2019-03-20] MEDS: Morphine TAB Extended Release (*) 30 MG TAB.ER PO PRN ×2 (05:48→17:14)
[2019-03-20] MEDS: Vancomycin(*) 1,500 MG in NS 0.9% 250 ML* 250 ML IVPB SCH (05:48)
[2019-03-20 06:24] LABS: INR 3.05 (0.82-1.09)
[2019-03-20] MEDS: Albuterol/Ipratropium RESP(NF) MDI (Combivent Respimat) INH SCH (07:49)
[2019-03-20] MEDS: Umeclidinium 62.5 MDI(NF) MDI INH SCH (07:49)
[2019-03-20] MEDS: Insulin GLARGINE(*) 1 UNITS UNIT SUBCUT SCH (08:53)
[2019-03-20] MEDS: Insulin LISPRO* 1 UNITS UNIT SUBCUT SCH ×6 (08:54→17:16)
[2019-03-20] MEDS: amLODIPine TAB* 5 MG PO SCH (09:09)
[2019-03-20] MEDS: Spironolactone TAB* 25 MG PO SCH (09:09)
[2019-03-20] MEDS: Aliskiren TAB* 150 MG PO SCH (10:32)
[2019-03-20] MEDS: CMC:Glimepiride (NF) 2 MG TAB PO SCH (10:32)
[2019-03-20] MEDS: Polyethylene Glycol 3350* 17 GM PACKET PO SCH (10:33)
[2019-03-20] MEDS: metFORMIN* 1,000 MG TAB PO SCH ×2 (10:34→17:14)
[2019-03-20] MEDS: Metolazone TAB* 5 MG PO SCH (10:34)
[2019-03-20] MEDS: Pregabalin 100 mg CAP (*) PO SCH ×3 (10:35→21:21)
[2019-03-20] MEDS: Magnesium Oxide TAB* 400 MG PO SCH ×2 (10:35→21:20)
[2019-03-20] MEDS: Folic Acid TAB* 1 MG PO SCH (10:35)
[2019-03-20] MEDS: Escitalopram * 10 MG TAB PO SCH (10:36)
[2019-03-20] MEDS: Aspirin EC TAB* 81 MG TAB.EC PO SCH (10:36)
[2019-03-20] MEDS: Torsemide TAB 10 MG PO SCH (10:37)
[2019-03-20] MEDS: Cefepime 1 GM in Dextrose(*) 1 GM/50 ML BAG IV SCH (10:38)
--- NOTE | 2019-03-20 13:30 | CONSULT ---
Consult Consult: [facility] Inpatient Consult Note Date of Consult: 03/20/19 Reason for Consult: type 2 diabetes Reason for Admission: cellulitis ASSESSMENT: 58 yo M with insulin-resistant T2DM. He has experienced rising A1c despite high-dose basal insulin and is now admitted for a complication of uncontrolled hyperglycemia. His estimated insulin requirement is 100-150 units/ day. I recommend that he be started on a 4-shot R/N insulin regimen as below. This regimen can be titrated as an inpatient to achieve BG<180 as an inpatient and, eventually, consolidated to BID insulin dosing as an outpatient. PLAN: - start regular insulin 25 units TID-AC - add 5 units if BG>200 - add 10 units if BG>300 - add 15 units if BG>400 - start NPH insulin 25 units QHS - adjust scheduled insulin doses daily until fasting and pre-meal BG<180 is achieved - d/c glargine insulin, lispro insulin, glimepiride, metformin - continue 4-shot insulin regimen while inpatient - consider 70/30 insulin regiment SUBJECTIVE: History of Present Illness: 58 yo M with T2DM, COPD, CKD-3, RA, AF and other medical problems, now admitted for LLE diabetic foot infection. He was recently admitted in November for COPD exacerbation and has been in his usual state of poor health since then. Several weeks ago, he attempted to remove a callus on his LEFT foot and noted discharge soon after. Topical antibiotics and wound dressings were not helpful. He subsequently developed swelling and redness of the LLE and foot, prompting him to come to the hospital. In the ED, he was afebrile, but had elevated WBC and neutrophils, in the setting of uncontrolled hyperglycemia. He was diagnosed with T2DM many years ago. He has been unable to achieve glycemic control for many years with a regimen consisting of high-dose basal insulin + glimepiride + metformin. Complications for diabetes include nephropathy, neuropathy and retinopathy. Past Medical History: 1. Atrial fibrillation 2. Heart failure with preserved ejection fraction 3. Hypertension 4. Diabetes mellitus, type 2, insulin-dependent 5. Chronic kidney disease, stage 3 6. Seronegative rheumatoid arthritis 7. Obstructive sleep apnea 8. COPD with chronic hypoxic respiratory failure 9. Pericarditis 10. Proteinuria Medications Prior to Admission: Fluticasone NASAL * [Flonase *] 2 spray BOTH NARES DAILY 01/21/12 [History Confirmed 03/14/19] Folic Acid TAB* [Folvite TAB*] 1 mg PO DAILY 01/21/12 [History Confirmed ] Metolazone TAB* [Zaroxolyn TAB*] 2.5 mg PO EVERY OTHER DAY 01/21/12 [History Confirmed 03/14/19] metFORMIN* [Glucophage 500 MG TAB *] 1,000 mg PO BID 01/21/12 [History Confirmed 03/14/19] Acetaminophen TAB* [Tylenol TAB*] 975 mg PO TID PRN 09/30/14 [History Confirmed 03/14/19] Spironolactone TAB* [Aldactone TAB 25 MG*] 50 mg PO DAILY 09/30/14 [History Confirmed 03/14/19] amLODIPine TAB* [Norvasc 5 mg TAB*] 10 mg PO DAILY 09/30/14 [History Confirmed 03/14/19] zzInsulin GLARGINE(*) [zzLantus(*)] 150 units SUBCUT BEDTIME 09/30/14 [History Confirmed 03/14/19] Polyethylene Glycol 3350* [Miralax*] 17 gm PO DAILY 05/26/16 [History Confirmed 03/14/19] Glimepiride (NF) 4 mg PO BID tab 05/30/16 [Rx Confirmed 03/14/19] Albuterol/Ipratropium RESP(NF) [Combivent Respimat (NF)] 2 puff INH QID [History Confirmed 03/14/19] Morphine Sulfate [Ms Contin] 30 mg PO TID PRN 11/21/17 [History Confirmed ] Pregabalin [Lyrica] 75 mg PO TID PRN 11/21/17 [History Confirmed 03/14/19] Escitalopram * [Lexapro 10 mg (NF)] 10 mg PO DAILY 06/28/18 [History Confirmed 03/14/19] Warfarin TAB(*) [Coumadin TAB(*)] 7.5 mg PO WE 06/28/18 [History Confirmed 03/14] Atorvastatin* [Lipitor 40 MG*] 40 mg PO 1700 12/14/18 [History Confirmed ] Warfarin TAB(*) [Coumadin TAB(*)] 3.75 tab PO SUMOTUTHFRSA 12/14/18 [History Confirmed 03/14/19] Sarilumab [Kevzara] 200 mg SUBCUT Q14D 12/19/18 [History Confirmed 03/14/19] Magnesium Hydroxide LIQ* [Milk of Raj LIQ*] 30 ml PO BID PRN #600 udc 12/20 [Rx Confirmed 03/14/19] Metoprolol Succinate XL TAB* [Toprol XL TAB*] 100 mg PO BEDTIME #30 tab.xl 12/20 [Rx Confirmed 03/14/19] Senna TAB 8.6 mg* [Senokot 8.6 mg TAB*] 1 tab PO BEDTIME PRN #90 tab 12/20/18 [ Rx Confirmed 03/14/19] Aliskiren TAB* [Tekturna TAB*] 150 mg PO DAILY 03/14/19 [History Confirmed 03/14] Aspirin EC TAB* [Ecotrin EC Low Dose 81 MG*] 81 mg PO DAILY 03/14/19 [History Confirmed 03/14/19] Colchicine* [Colcrys*] 0.6 mg PO DAILY PRN 03/14/19 [History Confirmed 03/14/19] Magnesium Oxide TAB* [MagOx 400 TAB*] 400 mg PO BID 03/14/19 [History Confirmed 03/14/19] Methotrexate TAB* 15 mg PO WEEKLY 03/14/19 [History Confirmed 03/14/19] Torsemide TAB* [Demadex 20 MG*] 40 mg PO DAILY 03/14/19 [History Confirmed 03/14] Umeclidinium 62.5 MDI(NF) [Incruse ELLIPTA MDI (NF)] 1 puff INH DAILY 03/14/19 [ History Confirmed 03/14/19] Inpatient Medications: Acetaminophen (Tylenol Tab*) 650 mg PO Q6H PRN PRN Reason: MILD PAIN or TEMP > 100.4 Last Admin: 03/20/19 02:43 Dose: 650 mg Albuterol (Ventolin Hfa Inhaler*) 1 puff INH Q4H PRN PRN Reason: SOB/WHEEZING Albuterol/Ipratropium (Duoneb (Albuterol 2.5 Mg/Ipratropium 0.5 Mg)) 1 neb INH Q4H PRN PRN Reason: SOB/WHEEZING Last Admin: 03/17/19 08:16 Dose: 1 neb Aliskiren (Tekturna Tab*) 150 mg PO DAILY ON LICENSE OF [facility] Last Admin: 03/20/19 10:32 Dose: 150 mg Amlodipine Besylate (Norvasc Tab*) 10 mg PO DAILY ON LICENSE OF [facility] Last Admin: 03/20/19 09:09 Dose: Not Given Aspirin (Aspirin Ec Tab*) 81 mg PO DAILY ON LICENSE OF [facility] Last Admin: 03/20/19 10:36 Dose: 81 mg Atorvastatin Calcium (Lipitor*) 40 mg PO 1700 ON LICENSE OF [facility] Last Admin: 03/19/19 16:16 Dose: 40 mg Colchicine (Colcrys*) 0.6 mg PO DAILY PRN PRN Reason: PAIN - MODERATE Last Admin: 03/18/19 08:48 Dose: 0.6 mg Dextrose (Dextrose 50% Vial 50 Ml*) 25 ml IV PUSH .FOR FS < 60 - SS PRN PRN Reason: FS < 60 Dextrose (Dextrose 50% Vial 50 Ml*) 25 ml IV PUSH .FOR FS < 60 - SS PRN PRN Reason: FS < 60 Escitalopram Oxalate (Lexapro *) 10 mg PO DAILY ON LICENSE OF [facility] Last Admin: 03/20/19 10:36 Dose: 10 mg Fluticasone Propionate (Flonase Nasal [place] 50mcg*) 2 spray BOTH NARES BEDTIME ON LICENSE OF [facility] Last Admin: 03/19/19 22:06 Dose: 2 spray Folic Acid (Folvite Tab*) 1 mg PO DAILY ON LICENSE OF [facility] Last Admin: 03/20/19 10:35 Dose: 1 mg Glimepiride (Glimepiride (Nf)) 4 mg PO BID ON LICENSE OF [facility]; Protocol Last Admin: 03/20/19 10:32 Dose: 4 mg Cefepime HCl (Maxipime 1 Gm In Dextrose Duplex (*)) 1 gm in 50 mls @ 100 mls/ hr IV 0900,2100 ON LICENSE OF [facility] Last Admin: 03/20/19 10:38 Dose: 100 mls/hr Vancomycin HCl 1,500 mg/ (Sodium Chloride) 250 mls @ 166.667 mls/hr IVPB Q12H ON LICENSE OF [facility] Last Admin: 03/20/19 05:48 Dose: 166.667 mls/hr Insulin Glargine (Lantus(*)) 150 units SUBCUT BEDTIME ON LICENSE OF [facility] Last Admin: 03/19/19 22:07 Dose: 150 units Insulin Glargine (Lantus(*)) 20 units SUBCUT DAILY ON LICENSE OF [facility] Last Admin: 03/20/19 08:53 Dose: 20 units Insulin Human Lispro (Humalog*) 0 units SUBCUT ACHS ON LICENSE OF [facility]; Protocol Last Admin: 03/20/19 08:54 Dose: 6 units Insulin Human Lispro (Humalog*) 10 units SUBCUT AC ON LICENSE OF [facility] Last Admin: 03/20/19 08:54 Dose: 10 units Lorazepam (Ativan Tab(*)) 0.5 mg PO BID PRN PRN Reason: ANXIETY Last Admin: 03/16/19 20:31 Dose: 0.5 mg Magnesium Hydroxide (Milk Of Magnesia Liq*) 30 ml PO BID PRN PRN Reason: CONSTIPATION Magnesium Oxide (Magox 400 Tab*) 400 mg PO BID ON LICENSE OF [facility] Last Admin: 03/20/19 10:35 Dose: 400 mg Metformin HCl (Glucophage*) 1,000 mg PO 0800,1700 ON LICENSE OF [facility] Last Admin: 03/20/19 10:34 Dose: 1,000 mg Metolazone (Zaroxolyn Tab*) 5 mg PO DAILY@0830 ON LICENSE OF [facility] Last Admin: 03/20/19 10:34 Dose: 5 mg Metoprolol Succinate (Toprol Xl Tab*) 100 mg PO BEDTIME ON LICENSE OF [facility] Last Admin: 03/19/19 22:05 Dose: 100 mg Morphine Sulfate (Ms Contin(*)) 30 mg PO TID PRN PRN Reason: PAIN Last Admin: 03/20/19 05:48 Dose: 30 mg Ondansetron HCl (Zofran Inj*) 4 mg IV Q6H PRN PRN Reason: NAUSEA Oxycodone HCl (Roxycodone Tab*) 5 mg PO Q6H PRN PRN Reason: PAIN - MODERATE Last Admin: 03/20/19 02:43 Dose: 5 mg Oxycodone HCl (Roxycodone Tab*) 10 mg PO Q6H PRN PRN Reason: PAIN - SEVERE Last Admin: 03/20/19 10:36 Dose: 10 mg Pharmacy Consult (Vancomycin Per Pharmacy*) 1 note FOLLOW UP .VANC PER PHARMACY ON LICENSE OF [facility]; Protocol Pharmacy Profile Note (Vancomycin Trough Check) 1 note FOLLOW UP 0600 ONE Stop: 03/21/19 06:01 Polyethylene Glycol/Electrolytes (Miralax*) 17 gm PO DAILY ON LICENSE OF [facility] Last Admin: 03/20/19 10:33 Dose: 17 gm Pregabalin (Lyrica Cap(*)) 100 mg PO TID ON LICENSE OF [facility] Last Admin: 03/20/19 10:35 Dose: 100 mg Senna (Senokot 8.6 Mg Tab*) 1 tab PO BEDTIME PRN PRN Reason: CONSTIPATION Spironolactone (Aldactone Tab*) 50 mg PO DAILY ON LICENSE OF [facility] Last Admin: 03/20/19 09:09 Dose: Not Given Throat Lozenges (Chloraseptic Mely*) 1 mely PO Q1H PRN PRN Reason: SORE THROAT Last Admin: 03/19/19 22:37 Dose: 1 mely Torsemide (Torsemide) 40 mg PO DAILY ON LICENSE OF [facility] Last Admin: 03/20/19 10:37 Dose: 40 mg Umeclidinium [place] (Incruse Ellipta Mdi (Nf)) 1 inh INH DAILY ON LICENSE OF [facility] Last Admin: 03/20/19 07:49 Dose: Not Given Warfarin Sodium (Coumadin Tab(*)) 7.5 mg PO DAILY@1700 ON LICENSE OF [facility]; Protocol Last Admin: 03/19/19 16:18 Dose: 7.5 mg Allergies/Intolerances: Spiriva Social History: Active smoker, but has been able to quit in the past. He has a history of alcohol abuse, history of marijuana use. Family History: Diabetes and vascular disease in multiple family members. Review of Systems: As above. 12 system review is otherwise negative. OBJECTIVE: Temp Pulse Resp BP Pulse Ox 97.8 F 65 16 122/61 99 03/20/19 10:54 03/20/19 10:54 03/20/19 13:09 03/20/19 10:54 03/20/19 10:54 General: obese, alert, pleasant, oriented, no distress ENT: neck supple, no thyromegaly, no bruit is heard Chest: O2 via NC CV: RRR, no murmur Abdomen: soft, non-tender Extremities: no edema, distal pulses intact Skin: warm, tender redness in LLE extending to mid-calf; ulcer over L 5th MTP Neuro: grossly intact motor/sensory in extremities Psych: restricted affect, pleasant Labs: Glucose-Insulin Results 03/18/19 16:30 239 - L6 03/18/19 21:00 - L12, G150 03/19/19 07:30 306 - L12 03/19/19 11:30 260 - L9 03/19/19 16:30 218 - L6 03/19/19 21:00 253 - L9, G150 03/20/19 07:30 241 - L6 03/20/19 11:30 289 - L9 WBC 8.6 10^3/uL (3.5-10.8) 03/15/19 06:08 RBC 3.58 10^6 /uL (4.18-5.48) L 03/15/19 06:08 Hgb 11.6 g/dL (14.0-18.0) L 03/15/19 06:08 Hct 34 % (42-52) L 03/15/19 06:08 MCV 96 fL (80-94) H 03/15/19 06:08 MCH 33 pg (27-31) H 03/15/19 06:08 MCHC 34 g/dL (31-36) 03/15/19 06:08 RDW 18 % (10-15) H 03/15/19 06:08 Plt Count 138 10^3/uL (150-450) L 03/15/19 06:08 MPV 9.0 fL (7.4-10.4) 03/15/19 06:08 Neut % (Auto) 80.9 % 03/15/19 06:08 Lymph % (Auto) 5.7 % 03/15/19 06:08 Dupage % (Auto) 12.2 % 03/15/19 06:08 Eos % (Auto) 1.0 % 03/15/19 06:08 Baso % (Auto) 0.2 % 03/15/19 06:08 Absolute Neuts (auto) 6.9 10^3/ul (1.5-7.7) 03/15/19 06:08 Absolute Lymphs (auto) 0.5 10^3/ul (1.0-4.8) L 03/15/19 06:08 Absolute Monos (auto) 1.0 10^3/ul (0-0.8) H 03/15/19 06:08 Absolute Eos (auto) 0.1 10^3/ul (0-0.6) 03/15/19 06:08 Absolute Basos (auto) 0.0 10^3/ul (0-0.2) 03/15/19 06:08 Absolute Nucleated RBC 0.0 10^3/ul 03/15/19 06:08 Nucleated RBC % 0.1 03/15/19 06:08 INR (Anticoag Therapy) 3.05 (0.82-1.09) H 03/20/19 06:09 Sodium 135 mmol/L (135-145) D 03/15/19 06:08 Potassium 3.4 mmol/L (3.5-5.0) L 03/15/19 06:08 Chloride 99 mmol/L (101-111) L 03/15/19 06:08 Carbon Dioxide 31 mmol/L (22-32) 03/15/19 06:08 Anion Gap 5 mmol/L (2-11) 03/15/19 06:08 BUN 38 mg/dL (6-24) H 03/18/19 05:10 Creatinine 1.17 mg/dL (0.67-1.17) 03/18/19 05:10 Est GFR ( Amer) 77.5 (>60) 03/18/19 05:10 Est GFR (Non-Af Amer) 64.0 (>60) 03/18/19 05:10 BUN/Creatinine Ratio 31.7 (8-20) H 03/15/19 06:08 Glucose 236 mg/dL (70-100) H 03/15/19 06:08 POC Glucose (mg/dL) 289 mg/dL (70-100) H 03/20/19 12:03 Glucose Meter Confirm 526 mg/dL (70-100) H* 03/16/19 17:40 Hemoglobin A1c 12.4 % (4.0-5.6) H 03/15/19 06:08 Lactic Acid 2.2 mmol/L (0.5-2.0) H* 03/14/19 22:22 Calcium 8.7 mg/dL (8.6-10.3) 03/15/19 06:08 Magnesium 2.1 mg/dL (1.9-2.7) 03/15/19 06:08 Total Bilirubin 1.30 mg/dL (0.2-1.0) H 03/14/19 18:23 AST 16 U/L (13-39) 03/14/19 18:23 ALT 32 U/L (7-52) 03/14/19 18:23 Alkaline Phosphatase 52 U/L (34-104) 03/14/19 18:23 C-Reactive Protein 108.43 mg/L (<8.01) H 03/15/19 06:08 Total Protein 6.4 g/dL (6.4-8.9) 03/14/19 18:23 Albumin 3.7 g/dL (3.2-5.2) 03/14/19 18:23 Globulin 2.7 g/dL (2-4) 03/14/19 18:23 Albumin/Globulin Ratio 1.4 (1-3) 03/14/19 18:23 Vancomycin Trough 16.9 mcg/mL 03/18/19 05:10
--- NOTE | 2019-03-20 15:24 | PN ---
Subjective Date of Service: 03/20/19 Interval History: Pain in left leg continues. He is using between 2-3 doses of oxycodone per day He does not think he can care for himself at home Denies SOB, trouble getting back and forth to the commode 2/2 pain Objective Active Medications: Acetaminophen (Tylenol Tab*) 650 mg PO Q6H PRN PRN Reason: MILD PAIN or TEMP > 100.4 Last Admin: 03/20/19 13:30 Dose: 650 mg Albuterol (Ventolin Hfa Inhaler*) 1 puff INH Q4H PRN PRN Reason: SOB/WHEEZING Albuterol/Ipratropium (Duoneb (Albuterol 2.5 Mg/Ipratropium 0.5 Mg)) 1 neb INH Q4H PRN PRN Reason: SOB/WHEEZING Last Admin: 03/17/19 08:16 Dose: 1 neb Aliskiren (Tekturna Tab*) 150 mg PO DAILY [facility] Last Admin: 03/20/19 10:32 Dose: 150 mg Amlodipine Besylate (Norvasc Tab*) 10 mg PO DAILY [facility] Last Admin: 03/20/19 09:09 Dose: Not Given Aspirin (Aspirin Ec Tab*) 81 mg PO DAILY [facility] Last Admin: 03/20/19 10:36 Dose: 81 mg Atorvastatin Calcium (Lipitor*) 40 mg PO 1700 [facility] Last Admin: 03/19/19 16:16 Dose: 40 mg Clindamycin HCl (Cleocin Cap*) 600 mg PO TID [facility] Colchicine (Colcrys*) 0.6 mg PO DAILY PRN PRN Reason: PAIN - MODERATE Last Admin: 03/18/19 08:48 Dose: 0.6 mg Dextrose (Dextrose 50% Vial 50 Ml*) 25 ml IV PUSH .FOR FS < 60 - SS PRN PRN Reason: FS < 60 Dextrose (Dextrose 50% Vial 50 Ml*) 25 ml IV PUSH .FOR FS < 60 - SS PRN PRN Reason: FS < 60 Escitalopram Oxalate (Lexapro *) 10 mg PO DAILY [facility] Last Admin: 03/20/19 10:36 Dose: 10 mg Fluticasone Propionate (Flonase Nasal [place] 50mcg*) 2 spray BOTH NARES BEDTIME [facility] Last Admin: 03/19/19 22:06 Dose: 2 spray Folic Acid (Folvite Tab*) 1 mg PO DAILY [facility] Last Admin: 03/20/19 10:35 Dose: 1 mg Glimepiride (Glimepiride (Nf)) 4 mg PO BID [facility]; Protocol Last Admin: 03/20/19 10:32 Dose: 4 mg Insulin Glargine (Lantus(*)) 150 units SUBCUT BEDTIME [facility] Last Admin: 03/19/19 22:07 Dose: 150 units Insulin Glargine (Lantus(*)) 20 units SUBCUT DAILY [facility] Last Admin: 03/20/19 08:53 Dose: 20 units Insulin Human Lispro (Humalog*) 0 units SUBCUT ACHS [facility]; Protocol Last Admin: 03/20/19 13:31 Dose: 9 units Insulin Human Lispro (Humalog*) 10 units SUBCUT AC [facility] Last Admin: 03/20/19 13:31 Dose: 10 units Lorazepam (Ativan Tab(*)) 0.5 mg PO BID PRN PRN Reason: ANXIETY Last Admin: 03/16/19 20:31 Dose: 0.5 mg Magnesium Hydroxide (Milk Of Magnesia Liq*) 30 ml PO BID PRN PRN Reason: CONSTIPATION Magnesium Oxide (Magox 400 Tab*) 400 mg PO BID [facility] Last Admin: 03/20/19 10:35 Dose: 400 mg Metformin HCl (Glucophage*) 1,000 mg PO 0800,1700 [facility] Last Admin: 03/20/19 10:34 Dose: 1,000 mg Metolazone (Zaroxolyn Tab*) 5 mg PO DAILY@0830 [facility] Last Admin: 03/20/19 10:34 Dose: 5 mg Metoprolol Succinate (Toprol Xl Tab*) 100 mg PO BEDTIME [facility] Last Admin: 03/19/19 22:05 Dose: 100 mg Morphine Sulfate (Ms Contin(*)) 30 mg PO TID PRN PRN Reason: PAIN Last Admin: 03/20/19 05:48 Dose: 30 mg Ondansetron HCl (Zofran Inj*) 4 mg IV Q6H PRN PRN Reason: NAUSEA Oxycodone HCl (Roxycodone Tab*) 5 mg PO Q6H PRN PRN Reason: PAIN - MODERATE Last Admin: 03/20/19 02:43 Dose: 5 mg Oxycodone HCl (Roxycodone Tab*) 10 mg PO Q6H PRN PRN Reason: PAIN - SEVERE Last Admin: 03/20/19 10:36 Dose: 10 mg Pharmacy Consult (Vancomycin Per Pharmacy*) 1 note FOLLOW UP .VANC PER PHARMACY [facility]; Protocol Polyethylene Glycol/Electrolytes (Miralax*) 17 gm PO DAILY [facility] Last Admin: 03/20/19 10:33 Dose: 17 gm Pregabalin (Lyrica Cap(*)) 100 mg PO TID [facility] Last Admin: 03/20/19 13:30 Dose: 100 mg Senna (Senokot 8.6 Mg Tab*) 1 tab PO BEDTIME PRN PRN Reason: CONSTIPATION Spironolactone (Aldactone Tab*) 50 mg PO DAILY [facility] Last Admin: 03/20/19 09:09 Dose: Not Given Throat Lozenges (Chloraseptic Mely*) 1 mely PO Q1H PRN PRN Reason: SORE THROAT Last Admin: 03/19/19 22:37 Dose: 1 mely Torsemide (Torsemide) 40 mg PO DAILY [facility] Last Admin: 03/20/19 10:37 Dose: 40 mg Umeclidinium [place] (Incruse Ellipta Mdi (Nf)) 1 inh INH DAILY [facility] Last Admin: 03/20/19 07:49 Dose: Not Given Warfarin Sodium (Coumadin Tab(*)) 7.5 mg PO DAILY@1700 [facility]; Protocol Last Admin: 03/19/19 16:18 Dose: 7.5 mg Vital Signs - 8 hr 03/20/19 03/20/19 03/20/19 07:52 08:00 08:56 Temperature Pulse Rate Respiratory 18 18 Rate Blood Pressure 102/58 (mmHg) O2 Sat by Pulse Oximetry 03/20/19 03/20/19 03/20/19 10:07 10:35 10:36 Temperature Pulse Rate Respiratory 18 18 Rate Blood Pressure 122/64 (mmHg) O2 Sat by Pulse Oximetry 03/20/19 03/20/19 03/20/19 10:54 13:08 13:09 Temperature 97.8 F Pulse Rate 65 Respiratory 18 16 16 Rate Blood Pressure 122/61 (mmHg) O2 Sat by Pulse 99 Oximetry 03/20/19 13:30 Temperature Pulse Rate Respiratory 16 Rate Blood Pressure (mmHg) O2 Sat by Pulse Oximetry Oxygen Devices in Use Now: Nasal Cannula Appearance: obese, NAD Eyes: No Scleral Icterus, PERRLA Ears/Nose/Mouth/Throat: Clear Oropharnyx, Mucous Membranes Moist Neck: NL Appearance and Movements; NL JVP, Trachea Midline Respiratory: Symmetrical Chest Expansion and Respiratory Effort, Clear to Auscultation Cardiovascular: RRR Abdominal: NL Sounds; No Tenderness; No Distention, No Hepatosplenomegaly Extremities: - - left leg tense and edematous Skin: - - cellulitis greatly improved, decreased areas of demarcation, remains red mostly anterior LE pre tibial but also in patchy distribution up anterior and posterior thigh, ulcer left later foot with very minimal surrounding erythema Result Diagrams: 03/15/19 06:08 03/18/19 05:10 Microbiology and Other Data: Microbiology 03/14/19 23:11 Gram Stain - Final Foot Left Assess/Plan/Problems-Billing Assessment: 58 yo M h/o COPD on home 3-4 L, IDDM, afib p/w chronic foot ulcer and associated left leg cellulitis - Patient Problems (1) Cellulitis Comment: Associated with diabetic foot ulcer a/w left leg cellulitis improving on vanco/cefepime NArrow to PO clindamycin 03/20/19 Pain but mostly with ambulation, no e/o compartment syndrome and he actually isnt using much breakthrough beyond his chronic narcotics (2) Diabetes Comment: Uncontrolled - HbA1C 12.4 Appreciate endo consult today - recommendations pending added 20 u Lantus (03/18) in AM to 150 QHS adding Lispro 10 U with each meal (03/18) cont ISS glimepiride restarted metformin pre prandial 220 on above regimen (3) Afib Comment: metoprolol coumadin (4) CHF (congestive heart failure) Comment: diastolic compensated home torsemide and metolazone (5) DVT prophylaxis Comment: - on warfarin Status and Disposition: inpatient
[2019-03-20] MEDS: Clindamycin CAP* 150 MG PO SCH ×2 (17:13→21:20)
[2019-03-20] MEDS: Atorvastatin* 40 MG TAB PO SCH (17:14)
[2019-03-20] MEDS ORDERED: Warfarin TAB(*) 5 MG PO SCH (19:00)
[2019-03-20] MEDS: Warfarin TAB(*) 7.5 MG PO SCH (19:59)
[2019-03-20] MEDS: Metoprolol Succinate XL TAB* 100 MG PO SCH (21:22)
[2019-03-20] MEDS: Fluticasone NASAL SPRAY 50MCG* 16 gm SPRAY BTL BOTH NARES SCH (21:22)
[2019-03-20] MEDS: Insulin NPH(*) 1 UNITS UNIT SUBCUT SCH (21:22)
[2019-03-21] MEDS: oxyCODONE TAB* 5 MG TAB PO PRN ×3 (05:52→21:33)
[2019-03-21] MEDS: Morphine TAB Extended Release (*) 30 MG TAB.ER PO PRN (05:53)
[2019-03-21] MEDS ORDERED: Vancomycin Trough Check NOTE FOLLOW UP ONE (06:00)
[2019-03-21 06:36] LABS: EGFR African American 66.2 (>60); EGFR Non-African American 54.8 (>60)
[2019-03-21 06:37] LABS: INR 4.37 (0.82-1.09)
[2019-03-21 06:49] LABS: Vancomycin Trough 13.9 mcg/mL
[2019-03-21] MEDS: Umeclidinium 62.5 MDI(NF) MDI INH SCH (07:27)
[2019-03-21] MEDS: Polyethylene Glycol 3350* 17 GM PACKET PO SCH (08:52)
[2019-03-21] MEDS: Magnesium Oxide TAB* 400 MG PO SCH ×2 (08:53→21:34)
[2019-03-21] MEDS: metFORMIN* 1,000 MG TAB PO SCH ×2 (08:53→17:48)
[2019-03-21] MEDS: Metolazone TAB* 5 MG PO SCH (08:53)
[2019-03-21] MEDS: Spironolactone TAB* 25 MG PO SCH (08:53)
[2019-03-21] MEDS: Aspirin EC TAB* 81 MG TAB.EC PO SCH (08:53)
[2019-03-21] MEDS: Clindamycin CAP* 150 MG PO SCH ×3 (08:53→21:34)
[2019-03-21] MEDS: Folic Acid TAB* 1 MG PO SCH (08:53)
[2019-03-21] MEDS: amLODIPine TAB* 5 MG PO SCH (08:54)
[2019-03-21] MEDS: Escitalopram * 10 MG TAB PO SCH (08:54)
[2019-03-21] MEDS: Pregabalin 100 mg CAP (*) PO SCH ×3 (08:54→21:34)
[2019-03-21] MEDS: Aliskiren TAB* 150 MG PO SCH (08:55)
[2019-03-21] MEDS: Insulin REGULAR(*) 1 UNITS UNIT SUBCUT SCH ×6 (08:56→17:49)
--- NOTE | 2019-03-21 10:23 | PN ---
Subjective Date of Service: 03/21/19 Interval History: Pt continues t9o c/o pain in left calf Objective Active Medications: Acetaminophen (Tylenol Tab*) 650 mg PO Q6H PRN PRN Reason: MILD PAIN or TEMP > 100.4 Last Admin: 03/20/19 21:19 Dose: 650 mg Albuterol (Ventolin Hfa Inhaler*) 1 puff INH Q4H PRN PRN Reason: SOB/WHEEZING Albuterol/Ipratropium (Duoneb (Albuterol 2.5 Mg/Ipratropium 0.5 Mg)) 1 neb INH Q4H PRN PRN Reason: SOB/WHEEZING Last Admin: 03/17/19 08:16 Dose: 1 neb Aliskiren (Tekturna Tab*) 150 mg PO DAILY [facility] Last Admin: 03/21/19 08:55 Dose: 150 mg Amlodipine Besylate (Norvasc Tab*) 10 mg PO DAILY [facility] Last Admin: 03/21/19 08:54 Dose: 10 mg Aspirin (Aspirin Ec Tab*) 81 mg PO DAILY [facility] Last Admin: 03/21/19 08:53 Dose: 81 mg Atorvastatin Calcium (Lipitor*) 40 mg PO 1700 [facility] Last Admin: 03/20/19 17:14 Dose: 40 mg Clindamycin HCl (Cleocin Cap*) 600 mg PO TID [facility] Last Admin: 03/21/19 08:53 Dose: 600 mg Colchicine (Colcrys*) 0.6 mg PO DAILY PRN PRN Reason: PAIN - MODERATE Last Admin: 03/18/19 08:48 Dose: 0.6 mg Dextrose (Dextrose 50% Vial 50 Ml*) 25 ml IV PUSH .FOR FS < 60 - SS PRN PRN Reason: FS < 60 Escitalopram Oxalate (Lexapro *) 10 mg PO DAILY [facility] Last Admin: 03/21/19 08:54 Dose: 10 mg Fluticasone Propionate (Flonase Nasal [place] 50mcg*) 2 spray BOTH NARES BEDTIME [facility] Last Admin: 03/20/19 21:22 Dose: 2 spray Folic Acid (Folvite Tab*) 1 mg PO DAILY [facility] Last Admin: 03/21/19 08:53 Dose: 1 mg Insulin Human NPH (Insulin Nph(*)) 25 units SUBCUT BEDTIME [facility] Last Admin: 01/02/20 21:22 Dose: 25 units Insulin Human Regular (Insulin Regular(*)) 25 units SUBCUT [facility] Last Admin: 03/21/19 08:56 Dose: 25 units Insulin Human Regular (Insulin Regular(*)) 0 units SUBCUT [facility]; Protocol Last Admin: 03/21/19 08:56 Dose: 5 units Lorazepam (Ativan Tab(*)) 0.5 mg PO BID PRN PRN Reason: ANXIETY Last Admin: 03/16/19 20:31 Dose: 0.5 mg Magnesium Hydroxide (Milk Of Magnesia Liq*) 30 ml PO BID PRN PRN Reason: CONSTIPATION Magnesium Oxide (Magox 400 Tab*) 400 mg PO BID [facility] Last Admin: 03/21/19 08:53 Dose: 400 mg Metformin HCl (Glucophage*) 1,000 mg PO 0800,1700 [facility] Last Admin: 03/21/19 08:53 Dose: 1,000 mg Metolazone (Zaroxolyn Tab*) 5 mg PO DAILY@0830 [facility] Last Admin: 03/21/19 08:53 Dose: 5 mg Metoprolol Succinate (Toprol Xl Tab*) 100 mg PO BEDTIME [facility] Last Admin: 03/20/19 21:22 Dose: 100 mg Morphine Sulfate (Ms Contin(*)) 30 mg PO TID PRN PRN Reason: PAIN Last Admin: 03/21/19 05:53 Dose: 30 mg Ondansetron HCl (Zofran Inj*) 4 mg IV Q6H PRN PRN Reason: NAUSEA Oxycodone HCl (Roxycodone Tab*) 5 mg PO Q6H PRN PRN Reason: PAIN - MODERATE Last Admin: 03/20/19 02:43 Dose: 5 mg Oxycodone HCl (Roxycodone Tab*) 10 mg PO Q6H PRN PRN Reason: PAIN - SEVERE Last Admin: 03/21/19 05:52 Dose: 10 mg Polyethylene Glycol/Electrolytes (Miralax*) 17 gm PO DAILY [facility] Last Admin: 03/21/19 08:52 Dose: 17 gm Pregabalin (Lyrica Cap(*)) 100 mg PO TID [facility] Last Admin: 03/21/19 08:54 Dose: 100 mg Senna (Senokot 8.6 Mg Tab*) 1 tab PO BEDTIME PRN PRN Reason: CONSTIPATION Spironolactone (Aldactone Tab*) 50 mg PO DAILY [facility] Last Admin: 03/21/19 08:53 Dose: 50 mg Throat Lozenges (Chloraseptic Mely*) 1 mely PO Q1H PRN PRN Reason: SORE THROAT Last Admin: 03/19/19 22:37 Dose: 1 mely Torsemide (Torsemide) 40 mg PO DAILY [facility] Last Admin: 03/20/19 10:37 Dose: 40 mg Umeclidinium [place] (Incruse Ellipta Mdi (Nf)) 1 inh INH DAILY [facility] Last Admin: 03/21/19 07:27 Dose: Not Given Warfarin Sodium (Coumadin Tab(*)) 5 mg PO DAILY@1700 [facility]; Protocol Last Admin: 03/20/19 19:44 Dose: 5 mg Vital Signs - 8 hr 03/21/19 03/21/19 03/21/19 03:38 05:52 05:53 Temperature 96.1 F Pulse Rate 65 Respiratory 18 8 19 Rate Blood Pressure 112/48 (mmHg) O2 Sat by Pulse 99 Oximetry 03/21/19 03/21/19 07:58 08:54 Temperature Pulse Rate Respiratory 17 18 Rate Blood Pressure (mmHg) O2 Sat by Pulse Oximetry Oxygen Devices in Use Now: Nasal Cannula Appearance: 58 yo M in nAD, aAOx3 Eyes: No Scleral Icterus, PERRLA Ears/Nose/Mouth/Throat: NL Teeth, Lips, Gums, Mucous Membranes Moist Neck: NL Appearance and Movements; NL JVP, Trachea Midline Respiratory: Symmetrical Chest Expansion and Respiratory Effort, Clear to Auscultation Cardiovascular: NL Sounds; No Murmurs; No JVD Abdominal: NL Sounds; No Tenderness; No Distention, No Hepatosplenomegaly Lymphatic: No Cervical Adenopathy Extremities: No Clubbing, Cyanosis, - - b/l LE's edema L>>R, left calf posterior aspect with marked area of edema, no loculation, Left foot ulcer- bottom of foot/lateral at 1 cm covered with slough, shallow. Erythema of left calf, surrounding entire lower leg Skin: No Nodules or Sclerosis Neurological: Alert and Oriented x 3, NL Muscle Strength and Tone Result Diagrams: 03/15/19 06:08 03/21/19 06:12 Microbiology and Other Data: Microbiology 03/14/19 23:11 Gram Stain - Final Foot Left Assess/Plan/Problems-Billing Assessment: 58 yo M h/o COPD on home 3-4 L, IDDM, afib p/w chronic foot ulcer and associated left leg cellulitis - Patient Problems (1) Cellulitis Comment: Associated with diabetic foot ulcer a/w left leg cellulitis improved on vanco/cefepime Narrowed to PO clindamycin 03/20/19 Pain but mostly with ambulation, no e/o compartment syndrome and he actually isnt using much breakthrough beyond his chronic narcotics will check left leg CT to r/o abscess due to continuation of pain (2) Afib Comment: metoprolol coumadin in regular rhythm today (3) Diabetes Comment: Uncontrolled - HbA1C 12.4 Appreciate endo consult - recommendations followed with NPH insulin and PANDA Regular AC glimepiride and metformin d/c'd (4) CKD (chronic kidney disease) stage 3, GFR 30-59 ml/min Comment: -At baseline (5) Diastolic heart failure Comment: -HFpEF, EF 60% in 2015 with mild relaxation dysfxn -Pt's torsemide and metalozone were held at admission and were restarted (6) COPD (chronic obstructive pulmonary disease) Comment: Stable with no s/s exacerbation -O2 dependent on 3L NC at home (7) Neuropathic pain Comment: increased Lyrica from 75 mg to 100 mg TID Pt requires significant amount of narcotics and his pain is still uncontrolled (8) NEAL (obstructive sleep apnea) Comment: -Continue home CPAP use (9) DVT prophylaxis Comment: - on [id number] hold today's dose Status and Disposition: inpatient
[2019-03-21] MEDS: Torsemide TAB 10 MG PO SCH (10:27)
[2019-03-21] MEDS: Acetaminophen TAB* 325 MG PO PRN ×2 (10:30→17:54)
[2019-03-21] MEDS: Atorvastatin* 40 MG TAB PO SCH (17:48)
[2019-03-21] MEDS: Insulin NPH(*) 1 UNITS UNIT SUBCUT SCH (21:35)
[2019-03-21] MEDS: Metoprolol Succinate XL TAB* 100 MG PO SCH (21:35)
[2019-03-21] MEDS: Fluticasone NASAL SPRAY 50MCG* 16 gm SPRAY BTL BOTH NARES SCH (21:41)
[2019-03-22] MEDS: Morphine TAB Extended Release (*) 30 MG TAB.ER PO PRN ×2 (00:14→08:54)
[2019-03-22] MEDS: oxyCODONE TAB* 5 MG TAB PO PRN ×2 (03:48→16:28)
[2019-03-22] MEDS: Umeclidinium 62.5 MDI(NF) MDI INH SCH (07:13)
[2019-03-22] MEDS: Insulin REGULAR(*) 1 UNITS UNIT SUBCUT SCH ×6 (08:37→17:47)
[2019-03-22] MEDS: Pregabalin 100 mg CAP (*) PO SCH ×3 (08:39→20:57)
[2019-03-22] MEDS: metFORMIN* 1,000 MG TAB PO SCH (08:40)
[2019-03-22] MEDS: Magnesium Oxide TAB* 400 MG PO SCH ×2 (08:41→20:59)
[2019-03-22] MEDS: amLODIPine TAB* 5 MG PO SCH (08:41)
[2019-03-22] MEDS: Metolazone TAB* 5 MG PO SCH (08:41)
[2019-03-22] MEDS: Spironolactone TAB* 25 MG PO SCH (08:42)
[2019-03-22] MEDS: Escitalopram * 10 MG TAB PO SCH (08:42)
[2019-03-22] MEDS: Folic Acid TAB* 1 MG PO SCH (08:42)
[2019-03-22] MEDS: Clindamycin CAP* 150 MG PO SCH (08:43)
[2019-03-22] MEDS: Aspirin EC TAB* 81 MG TAB.EC PO SCH (08:43)
[2019-03-22] MEDS: Aliskiren TAB* 150 MG PO SCH (08:44)
[2019-03-22] MEDS: Polyethylene Glycol 3350* 17 GM PACKET PO SCH (08:44)
[2019-03-22] MEDS: Acetaminophen TAB* 325 MG PO PRN ×2 (08:53→19:28)
[2019-03-22 09:57] LABS: Hematocrit 31 % (42-52); Hemoglobin 10.4 g/dL (14.0-18.0); Mean Corpuscular HGB Conc 33 g/dL (31-36); Mean Corpuscular Hemoglobin 32 pg (27-31); Mean Corpuscular Volume 97 fL (80-94); Mean Platelet Volume 8.5 fL (7.4-10.4); Platelet Count 210 10^3/uL (150-450); Red Blood Count 3.23 10^6 /uL (4.18-5.48); Red Cell Distribution Width 18 % (10-15); White Blood Count 14.4 10^3/uL (3.5-10.8)
[2019-03-22 10:24] LABS: BUN/Creatinine Ratio 35.4 (8-20); Calcium 9.3 mg/dL (8.6-10.3); EGFR African American 68.6 (>60); EGFR Non-African American 56.7 (>60); Potassium 4.4 mmol/L (3.5-5.0)
[2019-03-22 10:27] LABS: ABS Basophils 0.1 10^3/ul (0-0.2); ABS Eosinophils 0.2 10^3/ul (0-0.6); ABS Monocytes 1.5 10^3/ul (0-0.8); ABS Neutrophils 11.7 10^3/ul (1.5-7.7); Eosinophil % 1.6 %; Lymphocyte % 6.6 %
[2019-03-22] MEDS: Torsemide TAB 10 MG PO SCH (10:29)
[2019-03-22 10:45] LABS: INR 5.74 (0.82-1.09)
--- NOTE | 2019-03-22 11:32 | PN ---
Subjective Date of Service: 03/22/19 Interval History: Pt still c/o left leg pain-edema appears to be improving with SIMRAN on L LE. Objective Active Medications: Acetaminophen (Tylenol Tab*) 650 mg PO Q6H PRN PRN Reason: MILD PAIN or TEMP > 100.4 Last Admin: 03/22/19 08:53 Dose: 650 mg Albuterol (Ventolin Hfa Inhaler*) 1 puff INH Q4H PRN PRN Reason: SOB/WHEEZING Albuterol/Ipratropium (Duoneb (Albuterol 2.5 Mg/Ipratropium 0.5 Mg)) 1 neb INH Q4H PRN PRN Reason: SOB/WHEEZING Last Admin: 03/17/19 08:16 Dose: 1 neb Aliskiren (Tekturna Tab*) 150 mg PO DAILY [facility] Last Admin: 03/22/19 08:44 Dose: 150 mg Amlodipine Besylate (Norvasc Tab*) 10 mg PO DAILY [facility] Last Admin: 03/22/19 08:41 Dose: 10 mg Aspirin (Aspirin Ec Tab*) 81 mg PO DAILY [facility] Last Admin: 03/22/19 08:43 Dose: 81 mg Atorvastatin Calcium (Lipitor*) 40 mg PO 1700 [facility] Last Admin: 03/21/19 17:48 Dose: 40 mg Colchicine (Colcrys*) 0.6 mg PO DAILY PRN PRN Reason: PAIN - MODERATE Last Admin: 03/18/19 08:48 Dose: 0.6 mg Dextrose (Dextrose 50% Vial 50 Ml*) 25 ml IV PUSH .FOR FS < 60 - SS PRN PRN Reason: FS < 60 Escitalopram Oxalate (Lexapro *) 10 mg PO DAILY [facility] Last Admin: 03/22/19 08:42 Dose: 10 mg Fluticasone Propionate (Flonase Nasal [place] 50mcg*) 2 spray BOTH NARES BEDTIME [facility] Last Admin: 03/21/19 21:41 Dose: 2 spray Folic Acid (Folvite Tab*) 1 mg PO DAILY [facility] Last Admin: 03/22/19 08:42 Dose: 1 mg Insulin Human NPH (Insulin Nph(*)) 25 units SUBCUT BEDTIME [facility] Last Admin: 03/21/19 21:35 Dose: 25 units Insulin Human Regular (Insulin Regular(*)) 0 units SUBCUT AC [facility]; Protocol Last Admin: 03/22/19 08:37 Dose: 5 units Insulin Human Regular (Insulin Regular(*)) 30 units SUBCUT [facility] Lactobacillus Rhamnosus (Lactobacillus Acidophilus*) 1 tab PO BID [facility] Lorazepam (Ativan Tab(*)) 0.5 mg PO BID PRN PRN Reason: ANXIETY Last Admin: 03/16/19 20:31 Dose: 0.5 mg Magnesium Hydroxide (Milk Of Magnesia Liq*) 30 ml PO BID PRN PRN Reason: CONSTIPATION Magnesium Oxide (Magox 400 Tab*) 400 mg PO BID [facility] Last Admin: 03/22/19 08:41 Dose: 400 mg Metolazone (Zaroxolyn Tab*) 5 mg PO DAILY@0830 [facility] Last Admin: 03/22/19 08:41 Dose: 5 mg Metoprolol Succinate (Toprol Xl Tab*) 100 mg PO BEDTIME [facility] Last Admin: 03/21/19 21:35 Dose: 100 mg Morphine Sulfate (Ms Contin(*)) 30 mg PO TID PRN PRN Reason: PAIN Last Admin: 03/22/19 08:54 Dose: 30 mg Ondansetron HCl (Zofran Inj*) 4 mg IV Q6H PRN PRN Reason: NAUSEA Oxycodone HCl (Roxycodone Tab*) 5 mg PO Q6H PRN PRN Reason: PAIN - MODERATE Last Admin: 03/21/19 21:33 Dose: 5 mg Oxycodone HCl (Roxycodone Tab*) 10 mg PO Q6H PRN PRN Reason: PAIN - SEVERE Last Admin: 03/22/19 03:48 Dose: 10 mg Pharmacy Profile Note (Coumadin Daily Reminder*) 1 note FOLLOW UP 1700 [facility] Last Admin: 03/21/19 17:49 Dose: 1 note Polyethylene Glycol/Electrolytes (Miralax*) 17 gm PO DAILY [facility] Last Admin: 03/22/19 08:44 Dose: 17 gm Pregabalin (Lyrica Cap(*)) 100 mg PO TID [facility] Last Admin: 03/22/19 08:39 Dose: 100 mg Senna (Senokot 8.6 Mg Tab*) 1 tab PO BEDTIME PRN PRN Reason: CONSTIPATION Spironolactone (Aldactone Tab*) 50 mg PO DAILY [facility] Last Admin: 03/22/19 08:42 Dose: 50 mg Throat Lozenges (Chloraseptic Mely*) 1 mely PO Q1H PRN PRN Reason: SORE THROAT Last Admin: 03/19/19 22:37 Dose: 1 mely Torsemide (Torsemide) 40 mg PO DAILY [facility] Last Admin: 03/22/19 10:29 Dose: 40 mg Umeclidinium [place] (Incruse Ellipta Mdi (Nf)) 1 inh INH DAILY [facility] Last Admin: 03/22/19 07:13 Dose: Not Given Vital Signs - 8 hr 03/22/19 03/22/19 03/22/19 03:48 07:15 07:42 Temperature 97.5 F Pulse Rate 64 Respiratory 22 20 18 Rate Blood Pressure 125/55 (mmHg) O2 Sat by Pulse 100 Oximetry 03/22/19 03/22/19 03/22/19 08:00 08:39 08:54 Temperature Pulse Rate Respiratory 20 18 20 Rate Blood Pressure (mmHg) O2 Sat by Pulse Oximetry Oxygen Devices in Use Now: None Appearance: 58 yo M in nAD, aAOx3 Eyes: No Scleral Icterus, PERRLA Ears/Nose/Mouth/Throat: NL Teeth, Lips, Gums, Mucous Membranes Moist Neck: NL Appearance and Movements; NL JVP, Trachea Midline Respiratory: Symmetrical Chest Expansion and Respiratory Effort, - - scant LLL wheezes Cardiovascular: NL Sounds; No Murmurs; No JVD, RRR Abdominal: NL Sounds; No Tenderness; No Distention Lymphatic: No Cervical Adenopathy Extremities: No Clubbing, Cyanosis, - - entire L LE edema and cellulitis appear to be spreading to L upper thigh Skin: - - L bottom of foot lateral aspect small 1 cm ulcer Neurological: Alert and Oriented x 3, NL Muscle Strength and Tone Result Diagrams: 03/22/19 09:20 03/22/19 09:20 Microbiology and Other Data: Microbiology 03/14/19 23:11 Gram Stain - Final Foot Left Assess/Plan/Problems-Billing Assessment: 58 yo M h/o COPD on home 3-4 L, IDDM, afib p/w chronic foot ulcer and associated left leg cellulitis - Patient Problems (1) Cellulitis Comment: Associated with diabetic foot ulcer a/w left leg cellulitis improved on vanco/cefepime Narrowed to PO clindamycin 03/20/19, worse on Clinda with cellulitis extension and increase in WBC, back to Vanc on 03/22/19 Pain but mostly with ambulation, no e/o compartment syndrome and he actually isn 't using much breakthrough beyond his chronic narcotics left leg CT shows no abscess 03/21/19 (2) Afib Comment: metoprolol coumadin in regular rhythm today (3) Diabetes Comment: Uncontrolled - HbA1C 12.4 Appreciate endo consult - recommendations followed with NPH insulin and PANDA Regular AC (increasing from 25 to 30 U TID 03/22/19) glimepiride and metformin d/c'd (4) CKD (chronic kidney disease) stage 3, GFR 30-59 ml/min Comment: -At baseline (5) Diastolic heart failure Comment: -HFpEF, EF 60% in 2014 with mild relaxation dysfxn -Pt's torsemide and metalozone were held at admission and were restarted (6) COPD (chronic obstructive pulmonary disease) Comment: Stable with no s/s exacerbation -O2 dependent on 3L NC at home (7) Neuropathic pain Comment: increased Lyrica from 75 mg to 100 mg TID (8) NEAL (obstructive sleep apnea) Comment: -Continue home CPAP use (9) DVT prophylaxis Comment: - on [id number] hold today's dose Status and Disposition: inpatient
[2019-03-22] MEDS ORDERED: Vancomycin per Pharmacy* NOTE FOLLOW UP SCH (12:00)
[2019-03-22] MEDS ORDERED: Vancomycin(*) 2,000 MG in NS 0.9% 500 ML* 500 ML IVPB ONE (12:00)
[2019-03-22] MEDS: Lactobacillus Acidophilus* 1 TAB PO SCH ×2 (12:54→20:59)
[2019-03-22] MEDS: Atorvastatin* 40 MG TAB PO SCH (16:28)
[2019-03-22] MEDS: Metoprolol Succinate XL TAB* 100 MG PO SCH (20:59)
[2019-03-22] MEDS: Insulin NPH(*) 1 UNITS UNIT SUBCUT SCH (21:00)
[2019-03-22] MEDS: Fluticasone NASAL SPRAY 50MCG* 16 gm SPRAY BTL BOTH NARES SCH (21:06)
[2019-03-23] MEDS: Vancomycin(*) 1,500 MG in NS 0.9% 250 ML* 250 ML IVPB SCH ×2 (00:55→14:18)
[2019-03-23] MEDS: oxyCODONE TAB* 5 MG TAB PO PRN ×4 (06:03→23:35)
[2019-03-23] MEDS: Acetaminophen TAB* 325 MG PO PRN ×2 (06:06→12:38)
[2019-03-23 06:07] LABS: Hematocrit 32 % (42-52); Hemoglobin 10.6 g/dL (14.0-18.0); Mean Corpuscular HGB Conc 34 g/dL (31-36); Mean Corpuscular Hemoglobin 33 pg (27-31); Mean Corpuscular Volume 97 fL (80-94); Platelet Count 224 10^3/uL (150-450); Red Blood Count 3.26 10^6 /uL (4.18-5.48); Red Cell Distribution Width 18 % (10-15); White Blood Count 14.8 10^3/uL (3.5-10.8)
[2019-03-23 06:13] LABS: INR 3.71 (0.82-1.09)
[2019-03-23 06:27] LABS: BUN/Creatinine Ratio 37.8 (8-20); Calcium 9.6 mg/dL (8.6-10.3); EGFR Non-African American 62.8 (>60); Potassium 4.6 mmol/L (3.5-5.0)
[2019-03-23 06:43] LABS: ABS Basophils 0.1 10^3/ul (0-0.2); ABS Eosinophils 0.2 10^3/ul (0-0.6); ABS Lymphocytes 1.2 10^3/ul (1.0-4.8); ABS Monocytes 1.4 10^3/ul (0-0.8); ABS Neutrophils 11.8 10^3/ul (1.5-7.7); Eosinophil % 1.5 %; Lymphocyte % 8.1 %; Nucleated Red Blood Cells % 0.1
[2019-03-23] MEDS: Umeclidinium 62.5 MDI(NF) MDI INH SCH (07:52)
--- NOTE | 2019-03-23 08:24 | PN ---
Subjective Date of Service: 03/23/19 Interval History: Pt c/o abd "gas pain", has a lot of flatulence, not interested in Simethicone for now. L Leg less swollen after elevation and SIMRAN wrap Objective Active Medications: Acetaminophen (Tylenol Tab*) 650 mg PO Q6H PRN PRN Reason: MILD PAIN or TEMP > 100.4 Last Admin: 03/23/19 06:06 Dose: 650 mg Albuterol (Ventolin Hfa Inhaler*) 1 puff INH Q4H PRN PRN Reason: SOB/WHEEZING Albuterol/Ipratropium (Duoneb (Albuterol 2.5 Mg/Ipratropium 0.5 Mg)) 1 neb INH Q4H PRN PRN Reason: SOB/WHEEZING Last Admin: 03/17/19 08:16 Dose: 1 neb Aliskiren (Tekturna Tab*) 150 mg PO DAILY [facility] Last Admin: 03/22/19 08:44 Dose: 150 mg Amlodipine Besylate (Norvasc Tab*) 10 mg PO DAILY [facility] Last Admin: 03/22/19 08:41 Dose: 10 mg Aspirin (Aspirin Ec Tab*) 81 mg PO DAILY [facility] Last Admin: 03/22/19 08:43 Dose: 81 mg Atorvastatin Calcium (Lipitor*) 40 mg PO 1700 [facility] Last Admin: 03/22/19 16:28 Dose: 40 mg Colchicine (Colcrys*) 0.6 mg PO DAILY PRN PRN Reason: PAIN - MODERATE Last Admin: 03/18/19 08:48 Dose: 0.6 mg Dextrose (Dextrose 50% Vial 50 Ml*) 25 ml IV PUSH .FOR FS < 60 - SS PRN PRN Reason: FS < 60 Escitalopram Oxalate (Lexapro *) 10 mg PO DAILY [facility] Last Admin: 03/22/19 08:42 Dose: 10 mg Fluticasone Propionate (Flonase Nasal [place] 50mcg*) 2 spray BOTH NARES BEDTIME [facility] Last Admin: 03/22/19 21:06 Dose: 2 spray Folic Acid (Folvite Tab*) 1 mg PO DAILY [facility] Last Admin: 03/22/19 08:42 Dose: 1 mg Vancomycin HCl 1,500 mg/ (Sodium Chloride) 250 mls @ 166.667 mls/hr IVPB Q12H [facility] Last Admin: 03/23/19 00:55 Dose: 166.667 mls/hr Insulin Human NPH (Insulin Nph(*)) 25 units SUBCUT BEDTIME [facility] Last Admin: 03/22/19 21:00 Dose: 25 units Insulin Human Regular (Insulin Regular(*)) 0 units SUBCUT AC [facility]; Protocol Last Admin: 03/22/19 17:47 Dose: 5 units Insulin Human Regular (Insulin Regular(*)) 35 units SUBCUT [facility] Lactobacillus Rhamnosus (Lactobacillus Acidophilus*) 1 tab PO BID [facility] Last Admin: 03/22/19 20:59 Dose: 1 tab Lorazepam (Ativan Tab(*)) 0.5 mg PO BID PRN PRN Reason: ANXIETY Last Admin: 03/16/19 20:31 Dose: 0.5 mg Magnesium Hydroxide (Milk Of Magnesia Liq*) 30 ml PO BID PRN PRN Reason: CONSTIPATION Magnesium Oxide (Magox 400 Tab*) 400 mg PO BID [facility] Last Admin: 03/22/19 20:59 Dose: 400 mg Metolazone (Zaroxolyn Tab*) 5 mg PO DAILY@0830 [facility] Last Admin: 03/22/19 08:41 Dose: 5 mg Metoprolol Succinate (Toprol Xl Tab*) 100 mg PO BEDTIME [facility] Last Admin: 03/22/19 20:59 Dose: 100 mg Morphine Sulfate (Ms Contin(*)) 30 mg PO TID PRN PRN Reason: PAIN Last Admin: 03/22/19 08:54 Dose: 30 mg Ondansetron HCl (Zofran Inj*) 4 mg IV Q6H PRN PRN Reason: NAUSEA Oxycodone HCl (Roxycodone Tab*) 5 mg PO Q6H PRN PRN Reason: PAIN - MODERATE Last Admin: 03/21/19 21:33 Dose: 5 mg Oxycodone HCl (Roxycodone Tab*) 10 mg PO Q6H PRN PRN Reason: PAIN - SEVERE Last Admin: 03/23/19 06:03 Dose: 10 mg Pharmacy Consult (Vancomycin Per Pharmacy*) 1 note FOLLOW UP .VANC PER PHARMACY [facility]; Protocol Pharmacy Profile Note (Coumadin Daily Reminder*) 1 note FOLLOW UP 1700 [facility] Last Admin: 03/22/19 16:29 Dose: 1 note Pharmacy Profile Note (Vancomycin Trough Check) 1 note FOLLOW UP 1230 [facility] Stop: 03/24/19 12:31 Polyethylene Glycol/Electrolytes (Miralax*) 17 gm PO DAILY [facility] Last Admin: 03/22/19 08:44 Dose: 17 gm Pregabalin (Lyrica Cap(*)) 100 mg PO TID [facility] Last Admin: 03/22/19 20:57 Dose: 100 mg Senna (Senokot 8.6 Mg Tab*) 1 tab PO BEDTIME PRN PRN Reason: CONSTIPATION Spironolactone (Aldactone Tab*) 50 mg PO DAILY [facility] Last Admin: 03/22/19 08:42 Dose: 50 mg Throat Lozenges (Chloraseptic Mely*) 1 mely PO Q1H PRN PRN Reason: SORE THROAT Last Admin: 03/19/19 22:37 Dose: 1 mely Torsemide (Torsemide) 40 mg PO DAILY [facility] Last Admin: 03/22/19 10:29 Dose: 40 mg Umeclidinium [place] (Incruse Ellipta Mdi (Nf)) 1 inh INH DAILY [facility] Last Admin: 03/23/19 07:52 Dose: Not Given Vital Signs - 8 hr 03/23/19 03/23/19 02:52 06:03 Temperature 97.4 F Pulse Rate 62 Respiratory 20 18 Rate Blood Pressure 134/52 (mmHg) O2 Sat by Pulse 90 Oximetry Oxygen Devices in Use Now: Nasal Cannula Appearance: 58 yo M in nAD, aAOx3 Eyes: No Scleral Icterus, PERRLA Ears/Nose/Mouth/Throat: NL Teeth, Lips, Gums, Mucous Membranes Moist Neck: NL Appearance and Movements; NL JVP, Trachea Midline Respiratory: Symmetrical Chest Expansion and Respiratory Effort, Clear to Auscultation Cardiovascular: NL Sounds; No Murmurs; No JVD, RRR Abdominal: - - mild sitention, mild tenderness in LLQ, no rebound, no guarding, BS+ Lymphatic: No Cervical Adenopathy Extremities: No Clubbing, Cyanosis, - - entire left LE edema improving, erythem still present today up to nleft groin, but less warmth noted on palpation Skin: No Nodules or Sclerosis, - - left bottom of foot small ulcer-unchanged Neurological: Alert and Oriented x 3, NL Muscle Strength and Tone Result Diagrams: 03/23/19 06:03 03/23/19 06:03 Microbiology and Other Data: Microbiology 03/14/19 23:11 Gram Stain - Final Foot Left Assess/Plan/Problems-Billing Assessment: 58 yo M h/o COPD on home 3-4 L, IDDM, afib p/w chronic foot ulcer and associated left leg cellulitis - Patient Problems (1) Cellulitis Comment: Associated with diabetic foot ulcer a/w left leg cellulitis improved on vanco/cefepime Narrowed to PO clindamycin 03/20/19, worse on Clinda with cellulitis extension and increase in WBC, back to Vanc on 03/22/19 Pain but mostly with ambulation, no e/o compartment syndrome and he actually isn 't using much breakthrough beyond his chronic narcotics left leg CT shows no abscess 03/21/19 (2) Afib Comment: metoprolol coumadin in regular rhythm today (3) Diabetes Comment: Uncontrolled - HbA1C 12.4 Appreciate endo consult - recommendations followed with NPH insulin and PANDA Regular AC (increasing from 30 to 35 U TID 03/23/19) glimepiride and metformin d/c'd (4) CKD (chronic kidney disease) stage 3, GFR 30-59 ml/min Comment: -At baseline (5) Diastolic heart failure Comment: -HFpEF, EF 60% in 2015 with mild relaxation dysfxn -Pt's torsemide and metalozone were held at admission and were restarted (6) COPD (chronic obstructive pulmonary disease) Comment: Stable with no s/s exacerbation -O2 dependent on 3L NC at home (7) Neuropathic pain Comment: increased Lyrica from 75 mg to 100 mg TID (8) NEAL (obstructive sleep apnea) Comment: -Continue home CPAP use (9) DVT prophylaxis Comment: - on warfarin-INR decreasing-will restart today Status and Disposition: inpatient
[2019-03-23] MEDS: Insulin REGULAR(*) 1 UNITS UNIT SUBCUT SCH ×7 (08:49→18:22)
[2019-03-23] MEDS: Spironolactone TAB* 25 MG PO SCH (11:03)
[2019-03-23] MEDS: Folic Acid TAB* 1 MG PO SCH (11:03)
[2019-03-23] MEDS: Aspirin EC TAB* 81 MG TAB.EC PO SCH (11:03)
[2019-03-23] MEDS: Escitalopram * 10 MG TAB PO SCH (11:03)
[2019-03-23] MEDS: Metolazone TAB* 5 MG PO SCH (11:04)
[2019-03-23] MEDS: amLODIPine TAB* 5 MG PO SCH (11:04)
[2019-03-23] MEDS: Lactobacillus Acidophilus* 1 TAB PO SCH ×2 (11:05→21:43)
[2019-03-23] MEDS: Magnesium Oxide TAB* 400 MG PO SCH ×2 (11:05→21:42)
[2019-03-23] MEDS: Pregabalin 100 mg CAP (*) PO SCH ×3 (11:06→21:42)
[2019-03-23] MEDS: Aliskiren TAB* 150 MG PO SCH (11:06)
[2019-03-23] MEDS: Polyethylene Glycol 3350* 17 GM PACKET PO SCH (11:07)
[2019-03-23] MEDS: Morphine TAB Extended Release (*) 30 MG TAB.ER PO PRN ×2 (11:11→18:16)
[2019-03-23] MEDS: LORazepam TAB(*) 0.5 MG PO PRN ×2 (12:38→23:35)
[2019-03-23] MEDS: Torsemide TAB 10 MG PO SCH (12:38)
[2019-03-23] MEDS: Atorvastatin* 40 MG TAB PO SCH (18:16)
[2019-03-23] MEDS: Warfarin TAB(*) 3 MG PO SCH (18:17)
[2019-03-23] MEDS: Metoprolol Succinate XL TAB* 100 MG PO SCH (21:42)
[2019-03-23] MEDS: Insulin NPH(*) 1 UNITS UNIT SUBCUT SCH (21:47)
[2019-03-23] MEDS: Fluticasone NASAL SPRAY 50MCG* 16 gm SPRAY BTL BOTH NARES SCH (21:58)
[2019-03-24] MEDS: Vancomycin(*) 1,500 MG in NS 0.9% 250 ML* 250 ML IVPB SCH (00:59)
[2019-03-24] MEDS: Morphine TAB Extended Release (*) 30 MG TAB.ER PO PRN ×2 (02:39→13:21)
[2019-03-24] MEDS: Acetaminophen TAB* 325 MG PO PRN ×2 (02:43→08:57)
[2019-03-24 05:40] LABS: INR 2.18 (0.82-1.09)
[2019-03-24] MEDS: Umeclidinium 62.5 MDI(NF) MDI INH SCH (07:40)
[2019-03-24] MEDS: Insulin REGULAR(*) 1 UNITS UNIT SUBCUT SCH ×6 (08:09→18:12)
[2019-03-24] MEDS: oxyCODONE TAB* 5 MG TAB PO PRN ×2 (08:37→17:56)
[2019-03-24] MEDS: Metolazone TAB* 5 MG PO SCH (08:39)
[2019-03-24] MEDS: Nystatin TOP POWDER* 15 GM BTL TOPICAL SCH ×2 (08:52→20:49)
[2019-03-24] MEDS: Aliskiren TAB* 150 MG PO SCH (08:54)
[2019-03-24] MEDS: amLODIPine TAB* 5 MG PO SCH (08:55)
[2019-03-24] MEDS: Magnesium Oxide TAB* 400 MG PO SCH ×2 (08:55→20:46)
[2019-03-24] MEDS: Aspirin EC TAB* 81 MG TAB.EC PO SCH (08:55)
[2019-03-24] MEDS: Pregabalin 100 mg CAP (*) PO SCH ×3 (08:56→20:46)
[2019-03-24] MEDS: Spironolactone TAB* 25 MG PO SCH (08:56)
[2019-03-24] MEDS: Escitalopram * 10 MG TAB PO SCH (08:56)
[2019-03-24] MEDS: Folic Acid TAB* 1 MG PO SCH (08:56)
[2019-03-24] MEDS: Lactobacillus Acidophilus* 1 TAB PO SCH ×2 (08:58→20:46)
[2019-03-24] MEDS: Benzocaine/Menthol LOZ* 1 LOZENGE PO PRN (08:58)
[2019-03-24] MEDS: Torsemide TAB 10 MG PO SCH (08:58)
[2019-03-24] MEDS: Polyethylene Glycol 3350* 17 GM PACKET PO SCH (08:59)
[2019-03-24] MEDS: LORazepam TAB(*) 0.5 MG PO PRN ×2 (08:59→18:09)
[2019-03-24 09:19] LABS: C Reactive Protein 124.39 mg/L (<8.01)
--- NOTE | 2019-03-24 10:07 | PN ---
Subjective Date of Service: 03/24/19 Interval History: Pt c/o still of pain in left calf. abd pain resolved. Breathing at baseline Objective Active Medications: Acetaminophen (Tylenol Tab*) 650 mg PO Q6H PRN PRN Reason: MILD PAIN or TEMP > 100.4 Last Admin: 03/24/19 08:57 Dose: 650 mg Albuterol (Ventolin Hfa Inhaler*) 1 puff INH Q4H PRN PRN Reason: SOB/WHEEZING Albuterol/Ipratropium (Duoneb (Albuterol 2.5 Mg/Ipratropium 0.5 Mg)) 1 neb INH Q4H PRN PRN Reason: SOB/WHEEZING Last Admin: 03/17/19 08:16 Dose: 1 neb Aliskiren (Tekturna Tab*) 150 mg PO DAILY [facility] Last Admin: 03/24/19 08:54 Dose: 150 mg Amlodipine Besylate (Norvasc Tab*) 10 mg PO DAILY [facility] Last Admin: 03/24/19 08:55 Dose: 10 mg Aspirin (Aspirin Ec Tab*) 81 mg PO DAILY [facility] Last Admin: 03/24/19 08:55 Dose: 81 mg Atorvastatin Calcium (Lipitor*) 40 mg PO 1700 [facility] Last Admin: 03/23/19 18:16 Dose: 40 mg Colchicine (Colcrys*) 0.6 mg PO DAILY PRN PRN Reason: PAIN - MODERATE Last Admin: 03/18/19 08:48 Dose: 0.6 mg Dextrose (Dextrose 50% Vial 50 Ml*) 25 ml IV PUSH .FOR FS < 60 - SS PRN PRN Reason: FS < 60 Escitalopram Oxalate (Lexapro *) 10 mg PO DAILY [facility] Last Admin: 03/24/19 08:56 Dose: 10 mg Fluticasone Propionate (Flonase Nasal [place] 50mcg*) 2 spray BOTH NARES BEDTIME [facility] Last Admin: 03/23/19 21:58 Dose: 2 spray Folic Acid (Folvite Tab*) 1 mg PO DAILY [facility] Last Admin: 03/24/19 08:56 Dose: 1 mg Cefazolin Sodium/Dextrose (Kefzol 2 Gm Premix In Ors(*)) 2 gm in 50 mls @ 100 mls/hr IVPB Q8H [facility] Insulin Human NPH (Insulin Nph(*)) 25 units SUBCUT BEDTIME [facility] Last Admin: 03/23/19 21:47 Dose: 25 units Insulin Human Regular (Insulin Regular(*)) 0 units SUBCUT [facility]; Protocol Last Admin: 03/24/19 08:09 Dose: Not Given Insulin Human Regular (Insulin Regular(*)) 35 units SUBCUT [facility] Last Admin: 03/24/19 08:50 Dose: 35 units Lactobacillus Rhamnosus (Lactobacillus Acidophilus*) 1 tab PO BID [facility] Last Admin: 03/24/19 08:58 Dose: 1 tab Lorazepam (Ativan Tab(*)) 0.5 mg PO BID PRN PRN Reason: ANXIETY Last Admin: 03/24/19 08:59 Dose: 0.5 mg Magnesium Hydroxide (Milk Of Magnesia Liq*) 30 ml PO BID PRN PRN Reason: CONSTIPATION Magnesium Oxide (Magox 400 Tab*) 400 mg PO BID [facility] Last Admin: 03/24/19 08:55 Dose: 400 mg Metolazone (Zaroxolyn Tab*) 5 mg PO DAILY@0830 [facility] Last Admin: 03/24/19 08:39 Dose: 5 mg Metoprolol Succinate (Toprol Xl Tab*) 100 mg PO BEDTIME [facility] Last Admin: 03/23/19 21:42 Dose: 100 mg Morphine Sulfate (Ms Contin(*)) 30 mg PO TID PRN PRN Reason: PAIN Last Admin: 03/24/19 02:39 Dose: 30 mg Nystatin (Nystatin Top Powder*) 1 applic TOPICAL BID [facility] Last Admin: 03/24/19 08:52 Dose: 1 applic Ondansetron HCl (Zofran Inj*) 4 mg IV Q6H PRN PRN Reason: NAUSEA Oxycodone HCl (Roxycodone Tab*) 5 mg PO Q6H PRN PRN Reason: PAIN - MODERATE Last Admin: 03/23/19 18:16 Dose: 5 mg Oxycodone HCl (Roxycodone Tab*) 10 mg PO Q6H PRN PRN Reason: PAIN - SEVERE Last Admin: 03/24/19 08:37 Dose: 10 mg Pharmacy Profile Note (Coumadin Daily Reminder*) 1 note FOLLOW UP 1700 [facility] Last Admin: 03/23/19 18:23 Dose: 1 note Polyethylene Glycol/Electrolytes (Miralax*) 17 gm PO DAILY [facility] Last Admin: 03/24/19 08:59 Dose: 17 gm Pregabalin (Lyrica Cap(*)) 100 mg PO TID [facility] Last Admin: 03/24/19 08:56 Dose: 100 mg Senna (Senokot 8.6 Mg Tab*) 1 tab PO BEDTIME PRN PRN Reason: CONSTIPATION Spironolactone (Aldactone Tab*) 50 mg PO DAILY [facility] Last Admin: 03/24/19 08:56 Dose: 50 mg Throat Lozenges (Chloraseptic Mely*) 1 mely PO Q1H PRN PRN Reason: SORE THROAT Last Admin: 03/24/19 08:58 Dose: 1 mely Torsemide (Torsemide) 40 mg PO DAILY [facility] Last Admin: 03/24/19 08:58 Dose: 40 mg Umeclidinium [place] (Incruse Ellipta Mdi (Nf)) 1 inh INH DAILY [facility] Last Admin: 03/24/19 07:40 Dose: Not Given Warfarin Sodium (Coumadin Tab(*)) 3 mg PO DAILY@1700 [facility]; Protocol Last Admin: 03/23/19 18:17 Dose: 3 mg Vital Signs - 8 hr 03/24/19 03/24/19 03/24/19 02:39 02:57 04:39 Temperature 97.5 F Pulse Rate 60 Respiratory 20 18 18 Rate Blood Pressure 119/49 (mmHg) O2 Sat by Pulse 100 Oximetry 03/24/19 03/24/19 03/24/19 08:37 08:56 08:59 Temperature Pulse Rate Respiratory 20 20 20 Rate Blood Pressure (mmHg) O2 Sat by Pulse Oximetry Oxygen Devices in Use Now: Nasal Cannula Appearance: 58 yo m in nAD, aAOx3 Eyes: No Scleral Icterus, PERRLA Ears/Nose/Mouth/Throat: NL Teeth, Lips, Gums Neck: NL Appearance and Movements; NL JVP, Trachea Midline Respiratory: Symmetrical Chest Expansion and Respiratory Effort, - - faint bibasiliar crackles Cardiovascular: NL Sounds; No Murmurs; No JVD, RRR Abdominal: NL Sounds; No Tenderness; No Distention Lymphatic: No Cervical Adenopathy Extremities: - - b/l LE's edema L>>R Skin: No Nodules or Sclerosis, - - erythema surrounding the entire left leg , excluding the foot. L bottom of foot ulcer-small at 1 cm bottom covered with slough Neurological: NL Muscle Strength and Tone Result Diagrams: 03/23/19 06:03 03/23/19 06:03 Microbiology and Other Data: Microbiology 03/14/19 23:11 Gram Stain - Final Foot Left Assess/Plan/Problems-Billing Assessment: 58 yo M h/o COPD on home 3-4 L, IDDM, afib p/w chronic foot ulcer and associated left leg cellulitis - Patient Problems (1) Cellulitis Comment: Associated with diabetic foot ulcer a/w left leg cellulitis improved on vanco/cefepime Narrowed to PO clindamycin 03/20/19, worse on Clinda with cellulitis extension and increase in WBC, back to Vanc on 03/22/19, switched on Ancef 03/24/19 Pain but mostly with ambulation, no e/o compartment syndrome and he actually isn 't using much breakthrough beyond his chronic narcotics left leg CT shows no abscess 03/21/19. D/w ID today who recommends ortho consult to r/o septic knee on L. (2) Afib Comment: metoprolol coumadin in regular rhythm today (3) Diabetes Comment: Uncontrolled - HbA1C 12.4 Appreciate endo consult - recommendations followed with NPH insulin and PANDA Regular AC (increased from 30 to 35 U TID 03/23/19) glimepiride and metformin d/c'd (4) CKD (chronic kidney disease) stage 3, GFR 30-59 ml/min Comment: -At baseline (5) Diastolic heart failure Comment: -HFpEF, EF 60% in 2015 with mild relaxation dysfxn -Pt's torsemide and metalozone were held at admission and were restarted (6) COPD (chronic obstructive pulmonary disease) Comment: Stable with no s/s exacerbation -O2 dependent on 3L NC at home (7) Neuropathic pain Comment: increased Lyrica from 75 mg to 100 mg TID (8) NEAL (obstructive sleep apnea) Comment: -Continue home CPAP use (9) DVT prophylaxis Comment: - on warfarin Status and Disposition: inpatient
--- NOTE | 2019-03-24 11:23 | PN ---
Progress Note - Progress Note Date of Service: 03/24/19 Note: Procedure: Orthopedics was requested to perform an aspiration of the patient's left knee due to swelling, pain and redness. There was a question if this was related to his current cellulitis or if the joint was septic. Dr. Holland's reviewed the procedure with the patient and answered his questions. Consent was signed and witnessed. The left knee was prepped with Betadine and under sterile condition aspirated along the superior lateral patellar border with a 18G needle and 20 cc syringe. No fluid was obtained. Therefore the aspiration was attempted from the lateral jointline. Neither site yeilded joint fluid, and only a scant amount of blood. Pressure was applied to the puncture sites. The lateral jointline site was dressed with a sterile pressure dressing for a small amount of continued bleeding. The patient tolerated the procedure well and there were no complications. Continue pain management and antibiotics as per I& D. We are available for further issues.
[2019-03-24] MEDS: ceFAZolin 2 GM PREMIX in ORs 2 GM/50 ML BAG IVPB SCH ×2 (11:25→18:43)
[2019-03-24] MEDS ORDERED: Vancomycin Trough Check NOTE FOLLOW UP ONE (12:30)
--- NOTE | 2019-03-24 12:41 | PN ---
Progress Note - Progress Note Date of Service: 03/24/19 Note: See full consult note by YOVANI Arboleda. He has reasonable motion in the L knee with mild pain. No significant effusion is noted. A dry aspiration was performed. There was nothing to send for lab analysis. I think a septic knee is very unlikely at the current time and I would treat his cellulitis.
[2019-03-24 13:37] LABS: C Reactive Protein 83.65 mg/L (<8.01); EGFR African American 66.2 (>60); EGFR Non-African American 54.8 (>60)
--- NOTE | 2019-03-24 13:43 | CONS ---
CONSULTATION REPORT: DATE OF CONSULT: 03/24/19 REQUESTING PHYSICIAN: Dr. Carrasco. CONSULTING SERVICE: Infectious Disease. REASON FOR CONSULT: Left leg infection. IMPRESSION: 1. Left leg cellulitis arising from a left lateral forefoot ulcer and a callus. The ulcer grew group B streptococcus. I believe the organism is causing his left leg cellulitis. He does also have left leg swelling and pain with range of motion and weightbearing. He may have seeded the left joint. Alternatively, he does have a history of rheumatoid arthritis, could have a rheumatoid flare, although the knee seems a little unusual location. He could have another inflammatory process like gout or pseudogout in the left knee. 2. Morbid obesity. 3. Uncontrolled hyperglycemia due to type 2 diabetes mellitus which is complicated by peripheral neuropathy. 4. Chronic kidney disease stage 3. RECOMMENDATIONS: Stop vancomycin, start Ancef 2 g IV every 8 hours. Please have Orthopedics see him for aspiration of his left knee to further evaluate for left knee inflammatory process. He should have synovial fluid counts, cultures, and crystals if there is fluid obtained. HISTORY OF PRESENT ILLNESS: This is a 58-year-old man with diabetes, obesity, peripheral neuropathy, who had a friend pare down a left lateral forefoot callus a couple of weeks ago and a couple of days later developed left leg pain , swelling, redness with fever and malaise, so he came to the hospital on . His white count was 11,000. He was started on vancomycin. He had some improvement in the erythema. In his leg, he had a culture of the left lateral forefoot wound that has grown group B strep, resistant to clindamycin and tetracycline. He has had some improvement in the left foot redness and swelling. He had an MRI of the foot and ankle that showed no osteomyelitis. He developed redness that had started to spread up his leg and into the knee and medial thigh. He has had worsening pain with weightbearing of the left knee including with range of motion while he is in bed as well. He does not have any other joint or spine pain other than his chronic back pain PAST MEDICAL HISTORY: 1. Type 2 diabetes complicated by peripheral neuropathy and nephropathy. 2. Atrial fibrillation. 3. Heart failure with preserved ejection fraction. 4. Hypertension. 5. Stage 3 chronic kidney disease. 6. Seronegative rheumatoid arthritis. 7. Obstructive sleep apnea. 8. COPD with chronic hypoxic respiratory failure. 9. History of pericarditis. 10. Proteinuria. 11. Status post left ankle fixation in his 20s. MEDICATIONS: 1. Tylenol. 2. Albuterol. 3. Tekturna. 4. Amlodipine. 5. Aspirin. 6. Lipitor. 7. Colchicine as needed. 8. Fluticasone. 9. Lexapro. 10. Folic acid. 11. Vancomycin. 12. Lactobacillus. 13. Lorazepam. 14. Metoprolol. 15. Metolazone. 16. Morphine as needed. 17. Nystatin powder. 18. Oxycodone as needed. 19. Pregabalin 3 times a day. 20. Senna at bedtime. 21. Spironolactone. 22. Torsemide. 23. Umeclidinium. 24. Warfarin. ALLERGIES: SPIRIVA. FAMILY HISTORY: Mother from diabetes and heart disease. Father from old age. SOCIAL HISTORY: He is a past smoker, past alcohol abuse. 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 He is not . REVIEW OF SYSTEMS: All negative except as noted above to a 14-point review. PHYSICAL EXAM: Vital Signs: Temperature 36.4, heart rate 60, respiratory rate 18, blood pressure 119/49, oxygen saturation 100% on 3 L by nasal cannula. General: He is awake, not in distress. Neurologic: He is oriented x3. Moves all extremities. Sensation is absent to light touch in both feet. HEENT: There is no conjunctival hemorrhage. Oropharynx without lesions. Neck: Neck is supple without mass. Heart is regular rate and rhythm without murmurs, rubs , or gallops. Lungs are clear to auscultation bilaterally. Abdomen: Soft, nontender, nondistended. There are bowel sounds present. Skin: There is no rash or splinter hemorrhage. Musculoskeletal: There is no spine tenderness to palpation. There is left knee edema, tenderness, and pain with flexion of the knee. There is diffuse edema from above the ankle up to the medial left thigh with tenderness, induration, and some areas without fluctuance. There is no crepitans. There is warmth particularly about the left knee joint. DIAGNOSTIC STUDIES/LAB DATA: White blood cell count 14.8, hemoglobin 10, platelets 224, creatinine is 1.1. CRP 124 on 03/23/19, it was 108 on 03/15/19. Please see impression and recommendations as outlined above. I discussed with Dr. Carrasco. Thanks for asking me to see Mr. Cordon in consultation. [id number]/[facility] #: [id number] [place]
[2019-03-24] MEDS: Atorvastatin* 40 MG TAB PO SCH (17:57)
[2019-03-24] MEDS: Warfarin TAB(*) 3 MG PO SCH (18:09)
--- NOTE | 2019-03-24 20:03 | PRO ---
DATE OF PROCEDURE: 03/24/19 - ROOM #419 PROCEDURALIST: Chris Lopez MD ANESTHESIOLOGIST: None. ANESTHESIA: None. PRE-PROCEDURE DIAGNOSIS: Possible left septic knee arthritis. POST-PROCEDURE DIAGNOSIS: Unlikely left knee septic arthritis. PROCEDURE PERFORMED: Left knee aspiration. INDICATIONS: Mr. Cordon has diabetic foot ulcer. He has significant cellulitis in the left lower extremity. There was some concern about potential left knee septic arthritis. I was asked to consult and aspirate the knee. ESTIMATED BLOOD LOSS: 5 mL. COMPLICATIONS: None. FINDINGS: Dry aspiration. DESCRIPTION OF PROCEDURE: Mr. Cordon was seen in his room. The knee was positioned and cleansed with Betadine. He did have a time-out. Then, using sterile technique, I introduced an 18-gauge needle into the knee joint using an anterolateral parapatellar/suprapatellar approach. This was a dry aspiration. I did not get any fluid. Just to make sure, I went ahead and withdrew the needle and then I introduced it into the knee joint using the lateral parapatellar entry point. I was definitely in the joint. It was completely a dry aspiration. I therefore withdrew the needle. We held some pressure and we had a little bit of bleeding from the puncture site given that he is on Coumadin. We applied a little dressing and then there was no fluid to send for analysis, so that concluded the procedure. He tolerated this well. [id number]/[facility] #: [id number] [facility]
[2019-03-24] MEDS: Metoprolol Succinate XL TAB* 100 MG PO SCH (20:46)
[2019-03-24] MEDS: Insulin NPH(*) 1 UNITS UNIT SUBCUT SCH (20:46)
[2019-03-24] MEDS: Fluticasone NASAL SPRAY 50MCG* 16 gm SPRAY BTL BOTH NARES SCH (20:47)
[2019-03-25] MEDS: ceFAZolin 2 GM PREMIX in ORs 2 GM/50 ML BAG IVPB SCH ×3 (01:51→17:16)
[2019-03-25] MEDS: oxyCODONE TAB* 5 MG TAB PO PRN ×3 (03:05→17:17)
[2019-03-25] MEDS: Acetaminophen TAB* 325 MG PO PRN ×2 (05:06→20:46)
[2019-03-25 05:49] LABS: Hematocrit 29 % (42-52); Hemoglobin 9.8 g/dL (14.0-18.0); Mean Corpuscular HGB Conc 33 g/dL (31-36); Mean Corpuscular Hemoglobin 32 pg (27-31); Mean Corpuscular Volume 96 fL (80-94); Mean Platelet Volume 7.9 fL (7.4-10.4); Platelet Count 226 10^3/uL (150-450); Red Blood Count 3.07 10^6 /uL (4.18-5.48); Red Cell Distribution Width 18 % (10-15); White Blood Count 11.1 10^3/uL (3.5-10.8)
[2019-03-25 05:56] LABS: INR 2.01 (0.82-1.09)
[2019-03-25 06:08] LABS: BUN/Creatinine Ratio 31.4 (8-20); EGFR African American 64.6 (>60); EGFR Non-African American 53.4 (>60); Potassium 4.1 mmol/L (3.5-5.0)
[2019-03-25 06:23] LABS: ABS Basophils 0.2 10^3/ul (0-0.2); ABS Eosinophils 0.2 10^3/ul (0-0.6); ABS Monocytes 1.1 10^3/ul (0-0.8); ABS Neutrophils 8.7 10^3/ul (1.5-7.7); Eosinophil % 1.9 %; Lymphocyte % 9.3 %
[2019-03-25] MEDS: Umeclidinium 62.5 MDI(NF) MDI INH SCH (08:02)
[2019-03-25] MEDS: Morphine TAB Extended Release (*) 30 MG TAB.ER PO PRN ×3 (08:36→20:46)
[2019-03-25] MEDS: Metolazone TAB* 5 MG PO SCH (08:36)
[2019-03-25] MEDS: Insulin REGULAR(*) 1 UNITS UNIT SUBCUT SCH ×6 (08:37→17:18)
[2019-03-25] MEDS: Folic Acid TAB* 1 MG PO SCH (09:33)
[2019-03-25] MEDS: Escitalopram * 10 MG TAB PO SCH (09:33)
[2019-03-25] MEDS: amLODIPine TAB* 5 MG PO SCH (09:33)
[2019-03-25] MEDS: Aspirin EC TAB* 81 MG TAB.EC PO SCH (09:33)
[2019-03-25] MEDS: Lactobacillus Acidophilus* 1 TAB PO SCH ×2 (09:33→20:45)
[2019-03-25] MEDS: Torsemide TAB 10 MG PO SCH (09:34)
[2019-03-25] MEDS: Magnesium Oxide TAB* 400 MG PO SCH ×2 (09:34→20:45)
[2019-03-25] MEDS: Pregabalin 100 mg CAP (*) PO SCH ×3 (09:34→20:45)
[2019-03-25] MEDS: Aliskiren TAB* 150 MG PO SCH (09:34)
[2019-03-25] MEDS: Spironolactone TAB* 25 MG PO SCH (09:34)
[2019-03-25] MEDS: Nystatin TOP POWDER* 15 GM BTL TOPICAL SCH ×2 (09:36→21:45)
[2019-03-25] MEDS: Polyethylene Glycol 3350* 17 GM PACKET PO SCH (09:41)
[2019-03-25] MEDS: LORazepam TAB(*) 0.5 MG PO PRN ×2 (09:47→20:49)
[2019-03-25] MEDS: Colchicine* 0.6 MG TAB PO PRN (10:45)
--- NOTE | 2019-03-25 11:29 | PN ---
Progress Note - Progress Note Date of Service: 03/25/19 SOAP: Subjective: []Pt seen at bedside for LLE cellulitis. He reports continued pain of the left lower leg. Knee is mildly painful but predominant complaints is the left calf. Objective: []Gen: Sitting comfortably at the edge of the bed LLE: Cellulitis LLE which tracks medially to the thigh. He is tender throughout the erythematous area. There is no obvious fluctuance in the lower leg. Mild effusion of the knee, PROM ankle and knee with only mild pain. Assessment: []cellulitis lower leg without evidence of septic knee Plan: []WBAT Cont abx per ID Dr Lopez attempt aspiration of the knee x 2 yesterday with dry taps Labs: wbc and crp with some improvement. Continue to trend. If severe lower leg pain/ lack of improvement recommend MRI Left lower leg r/o abscess. CT was done 03/21/19 without evidence of abscess. Vital Signs Temp 98.1 F 03/25/19 10:42 Pulse 80 03/25/19 10:42 Resp 18 03/25/19 10:42 BP 120/68 03/25/19 10:42 Pulse Ox 99 03/25/19 10:42 Intake & Output 03/24/19 03/25/19 03/25/19 18:59 06:59 18:59 Intake Total 1490 680 Output Total 1700 2100 Balance -210 -1420 Weight 332 lb Intake: IV Fluids 50 50 Cefazolin 50 50 IVPB 150 Cefazolin 150 Oral 1440 480 Output: Urine 1700 2100 Other: Date of Last Bowel 03/23/2019 Movement # Bowel Movements 0 Laboratory Last Values WBC 11.1 10^3/uL (3.5-10.8) H 03/25/19 05:42 RBC 3.07 10^6 /uL (4.18-5.48) L 03/25/19 05:42 Hgb 9.8 g/dL (14.0-18.0) L 03/25/19 05:42 Hct 29 % (42-52) L 03/25/19 05:42 MCV 96 fL (80-94) H 03/25/19 05:42 MCH 32 pg (27-31) H 03/25/19 05:42 MCHC 33 g/dL (31-36) 03/25/19 05:42 RDW 18 % (10-15) H 03/25/19 05:42 Plt Count 226 10^3/uL (150-450) 03/25/19 05:42 MPV 7.9 fL (7.4-10.4) 03/25/19 05:42 Neut % (Auto) 77.7 % 03/25/19 05:42 Lymph % (Auto) 9.3 % 03/25/19 05:42 [place] % (Auto) 9.7 % 03/25/19 05:42 Eos % (Auto) 1.9 % 03/25/19 05:42 Baso % (Auto) 1.4 % 03/25/19 05:42 Absolute Neuts (auto) 8.7 10^3/ul (1.5-7.7) H 03/25/19 05:42 Absolute Lymphs (auto) 1.0 10^3/ul (1.0-4.8) 03/25/19 05:42 Absolute Monos (auto) 1.1 10^3/ul (0-0.8) H 03/25/19 05:42 Absolute Eos (auto) 0.2 10^3/ul (0-0.6) 03/25/19 05:42 Absolute Basos (auto) 0.2 10^3/ul (0-0.2) 03/25/19 05:42 Absolute Nucleated RBC 0.0 10^3/ul 03/25/19 05:42 Nucleated RBC % 0.0 03/25/19 05:42 INR (Anticoag Therapy) 2.01 (0.82-1.09) H 03/25/19 05:42 Sodium 133 mmol/L (135-145) L 03/25/19 05:42 Potassium 4.1 mmol/L (3.5-5.0) 03/25/19 05:42 Chloride 94 mmol/L (101-111) L 03/25/19 05:42 Carbon Dioxide 33 mmol/L (22-32) H 03/25/19 05:42 Anion Gap 6 mmol/L (2-11) 03/25/19 05:42 BUN 43 mg/dL (6-24) H 03/25/19 05:42 Creatinine 1.37 mg/dL (0.67-1.17) H 03/25/19 05:42 Est GFR ( Amer) 64.6 (>60) 03/25/19 05:42 Est GFR (Non-Af Amer) 53.4 (>60) 03/25/19 05:42 BUN/Creatinine Ratio 31.4 (8-20) H 03/25/19 05:42 Glucose 229 mg/dL (70-100) H 03/25/19 05:42 POC Glucose (mg/dL) 256 mg/dL (70-100) H 03/25/19 07:33 Glucose Meter Confirm 526 mg/dL (70-100) H* 03/16/19 17:40 Hemoglobin A1c 12.4 % (4.0-5.6) H 03/15/19 06:08 Lactic Acid 2.2 mmol/L (0.5-2.0) H* 03/14/19 22:22 Calcium 9.0 mg/dL (8.6-10.3) 03/25/19 05:42 Magnesium 2.1 mg/dL (1.9-2.7) 03/15/19 06:08 Total Bilirubin 1.30 mg/dL (0.2-1.0) H 03/14/19 18:23 AST 16 U/L (13-39) 03/14/19 18:23 ALT 32 U/L (7-52) 03/14/19 18:23 Alkaline Phosphatase 52 U/L (34-104) 03/14/19 18:23 C-Reactive Protein 83.65 mg/L (<8.01) H 03/24/19 13:03 Total Protein 6.4 g/dL (6.4-8.9) 03/14/19 18:23 Albumin 3.7 g/dL (3.2-5.2) 03/14/19 18:23 Globulin 2.7 g/dL (2-4) 03/14/19 18:23 Albumin/Globulin Ratio 1.4 (1-3) 03/14/19 18:23 Vancomycin Trough 13.9 mcg/mL 03/21/19 06:12
--- NOTE | 2019-03-25 14:11 | DS ---
CC: Dr. Hussein; Dr. Avila; Dr. Lopez; Dr. Do * DISCHARGE SUMMARY: DATE OF ADMISSION: 03/14/19 DATE OF ANTICIPATED DISCHARGE: 03/25/19 or 03/26/19 PRIMARY CARE PROVIDER: Dr. Do. DISCHARGE DIAGNOSES: 1. Left lower extremity cellulitis due to chronic diabetic foot ulcer. 2. Worsening of chronic kidney disease. 3. Elevated lactic acid likely due to a combination of chronic kidney disease and use of metformin. 4. Uncontrolled diabetes mellitus x2, insulin dependent with hemoglobin A1c at 12.4 during the hospital stay. 5. Acute on chronic diastolic congestive heart failure exacerbation. SECONDARY DIAGNOSES: 1. Chronic atrial fibrillation, on anticoagulation with Coumadin. 2. History of chronic diastolic congestive heart failure. 3. Chronic hypoxemic respiratory failure, on oxygen at 3 L during the day time. 4. Obstructive sleep apnea, on CPAP at night. 5. History of diabetes mellitus type 2, insulin dependent. 6. Chronic kidney disease stage 3 due to diabetes. 7. Seronegative rheumatoid arthritis. 8. Chronic obstructive pulmonary disease. 9. An episode of pericarditis in the past. 10. Proteinuria. 11. Status post left ankle pinning in patient when he was in his 20s. CONSULTATIONS DURING HOSPITAL STAY: Included Dr. Hussein, Infectious Diseases ; Dr. Lopez, Orthopedic Surgery; Dr. Grey Avila from Endocrinology was also consulted. PROCEDURES PERFORMED: Included left knee attempted aspiration performed by Dr. Lopez on 03/24/19 due to "dry top." LABORATORY DATA AND STUDIES PERFORMED DURING THE HOSPITAL STAY: Included: On , sodium of 133, potassium 4.1, chloride 94, carbon dioxide 33, BUN 43, creatinine 1.37. The patient's C-reactive protein on 03/24/19 was 83.6. CBC on 03/25/19, white blood cell count of 11.1, hemoglobin of 9.8, hematocrit of 29, MCV of 96 and platelets of 226. INR on 03/25/[address] of the left lower extremity obtained on 03/21/19, impression: "Findings most consistent with cellulitis with no evidence for abscess." Venous Doppler study obtained on 03/16/19 showed no sonographic evidence of DVT on the left leg. MRI of the left lower extremity obtained on 03/14/19 showed "no MRI findings to correlate with the patient's symptomatology. Specifically no osteomyelitis. Left foot cellulitis present." Microbiology test shows wound culture from the left foot ulcer showed Strep group B that was resistant to clindamycin and tetracycline and sensitive to ampicillins, Levaquin, tigecycline and vancomycin. HOSPITALIZATION COURSE: Jonah Cordon is a 58-year-old male with history of BMI of nearly 50 with history of chronic hypoxemic respiratory failure on oxygen due to his COPD as well as obstructive sleep apnea due to his body habitus on CPAP. There was chronic bilateral lower extremities edema and had also chronic left foot ulcer. He decided to unroof the dry skin on his ulcer within days around [place] time in 2019 and developed cellulitis. He presented with left neck cellulitis extending to left mid thigh on 03/14/19. He was admitted with suspicion that he may have left foot osteomyelitis, but the MRI obtained shortly after admission showed only cellulitis. The patient's Dopplers were also negative for left leg DVT and lower extremity CT on 03/21/19 was also negative for abscess. The CT was performed due to continuation of the patient's pain. The patient has problems with chronic pain and he uses morphine extended release 3 times a day plus oxycodone on as needed basis routinely. His left calf was definitely swollen and that could have contributed to the pain. Nevertheless after the consult with Dr. Hussein was recommended for the patient to have orthopedic evaluation for possibility of septic arthritis in the left knee. Dr. Lopez saw the patient on 03/24/19 and attempted aspiration, but was dry top. There was also no evidence of knee effusion on Dr. Lopez evaluation. The patient's cultures from the left foot wound grew Strep group B that was resistant to clindamycin, but sensitive to penicillins and amoxicillin. Dr. Hussein recommended 7 days of amoxicillin at the time of discharge. It became apparent throughout the patient's hospital stay that he is deconditioned and he can hardly walk. Physical Therapy evaluated the patient and deemed the patient appropriate for a short term rehabilitation. He is going to be discharged to [facility] hopefully within the next 24 hours, pending insurance approval. From the patient's chronic issues, the patient had exacerbation of CHF. During his hospital stay due to lab data initially, his creatinine was slightly elevated and his diuretics were held. After his diuretics were restarted, the patient's breathing improved and currently is at his baseline. The patient's left lower extremity edema also markedly improved after Fredis bandage wrap. Wraps were administered on a daily basis. We are also recommending for the patient to have his left leg elevated off bed as much as possible when he is nonambulatory. The patient's diabetes appeared markedly uncontrolled. Dr. Grey Avila, radiation control technician saw the patient in evaluation and noted that the patient should be on NPH insulin at 25 units at night plus insulin regular 3 times a day with meals and to continue titration of insulin until the patient's sugars are below 200 in morning. So far, the patient's regular insulin was titrated up to 35 units with each meal, but it may require further titration during his rehab stay. His hemoglobin A1c was noted to be 12.4. Dr. Avila also recommended for the patient to be taken off glyburide and metformin, his oral hypoglycemic agents which was done. Throughout the patient's hospital stay, pain control was an issue. The patient requires fair amount of narcotics and that is also slight exacerbation of his chronic problem. The patient stated that he was discharged from pain management clinics in the past. We continued his morphine extended release, MS Contin 30 mg 3 times a day plus oxycodone on as needed basis. By the time of discharge, the patient's left lower extremity is much swollen, although it is still pronounced especially posteriorly in the calf. His erythema is pallor, but is still present close to his left groin. The only open area is on his left foot, is a small ulcer in the lateral aspect of the bottom of the foot, it is approximately 1 cm in diameter, the bottom was covered with slough. His foot at this point is basically resolved from cellulitis. The erythema is mostly now extending from the level of the calf to the level of the thigh. MEDICATIONS AT DISCHARGE: Include: 1. Acetaminophen 975 mg p.o. t.i.d. p.r.n. 2. DuoNeb nebulizer on p.r.n. basis. 3. Tekturna 150 mg daily. 4. Amlodipine 10 mg daily. 5. Aspirin 81 mg daily. 6. Lipitor 20 mg daily. 7. Colchicine 0.6 mg daily. 8. Lexapro 10 mg daily. 9. Flonase 2 sprays both nostrils daily. 10. 1 mg daily. 11. Mag-Ox 400 mg b.i.d. 12. Methotrexate 15 mg weekly. 13. MS Contin 30 mg 3 times a day. 14. MiraLAX 17 g daily. 15. Kevzara injection every 14 days I believe it is 200 mg. 16. Aldactone 50 mg daily. 17. Torsemide 40 mg daily. 18. Incruse Ellipta 1 puff daily. 19. Amoxicillin 500 mg 3 times a day for 7 days total. 20. Insulin NPH 25 units at night. 21. Insulin regular 35 units with each meal 3 times a day. 22. Acidophilus probiotic 1 tablet b.i.d. 23. Ativan 0.5 mg b.i.d. p.r.n. 24. Zaroxolyn 2.5 mg daily. 25. Toprol-XL 100 mg at bedtime. 26. Lyrica was increased from 75 to 100 mg 3 times a day. 27. Senna 1 tablet at bedtime. 28. Coumadin 3 mg daily. The patient's INR at the time of discharge was 2.01. His Coumadin was restarted on 03/23/19 when his INR was 3.7, it was dropped from approximately 5 the day prior. For the past couple of days, his INR had been in the low 2s levels, but had been decreasing slowly. PHYSICAL EXAM AT THE TIME OF DISCHARGE: Blood pressure of 120/68, heart rate of 80 and irregular, respiratory rate 18, oxygen saturation 98% on 3 L of oxygen nasal cannula, temperature 98.1. General: The patient is a very pleasant 58-year-old male with a BMI of 49, who is in no acute distress. Alert , awake, oriented x3. HEENT: Head: Atraumatic, normocephalic. Eyes: Pupils are equal, reactive to light and accommodation. Oropharynx is clear. Mucosa moist. Neck: Supple. No JVD. No bruits bilaterally. Cardiovascular: Regular rate and rhythm. No murmur. Respiratory: Clear to auscultation bilaterally. Abdomen: Soft, nontender. Bowel sounds are present in all 4 quadrants. Extremities: There is bilateral left ankle edema. Left foot and left ankle and left calf is definitely more swollen than the right. The left calf has marked swelling posteriorly also noted. Erythema of the left lower extremity is extending from the level of the left ankle close to the left groin , but it is much paler and less warm than before. The patient has left foot ulceration at a small lateral base of the left foot of approximately 1 cm in diameter, bottom covered with slough. The left foot is swollen, but no erythema is noted on his foot. On neuro evaluation, cranial nerves II through XII grossly intact. Motor strength is 5/5 bilaterally. The patient does have limit in range of motion in mobility with the left leg due to pain. DISPOSITION AT DISCHARGE: [facility]. CONDITION AT DISCHARGE: Stable. This is a short summary of the patient's hospital stay. Please refer to further medical records for details. TIME SPENT: Approximately 50 minutes was spent on the patient's discharge. [id number]/[facility] #: [id number] [place]
--- NOTE | 2019-03-25 16:30 | CONSULT ---
Subjective Date of Service: 03/25/19 Interval History: Mr. Cordon is a 58 yo male with PMH significant for Afib, heart failure, HTN, DM2, CKD3, and seronegative RA; who presented to the emergency room with left LE redness and swelling. He was admitted to the hospital for left LE cellulitis. Reports that the wound initially started as a callous that has been present for sometime. He previously followed with Podiatry, but has been unable to go for awhile due to difficulty ambulating. His neighbor helped par the callous, and noticed that there was a wound beneath the callous. His friend told him the wound looked good and there was no sign of infection. He was cleaning the area with soap and water and using ABX ointment. Within 1-2 days the leg was red and swollen. Patient seen and examined at bedside. Verbal consent obtained from the patient for wound assessment and photograph. Family History: Unchanged from Admission Social History: Unchanged from Admission Past Medical History: Unchanged from Admission Review of Systems - Measurements Intake and Output: Intake and Output Last 24 Hours 03/23/19 03/24/19 03/25/19 03/26/19 06:59 06:59 06:59 06:59 Intake Total 1850 2480 2170 1742 Output Total 3750 5900 3800 1999 Balance -1900 -3420 -1630 -258 Weight 339 lb 329 lb 332 lb Intake: IV Fluids 80 60 100 62 Cefazolin 100 52 normal saline 80 60 10 IVPB 750 500 150 Cefazolin 150 Vanco 750 500 Oral 1020 1920 1920 1680 Output: Urine 3750 5900 3800 1999 Other: Estimated Void Large Medium Date of Last Bowel 03/23/2019 03/25/2019 Movement # Bowel Movements 0 0 0 1 Estimated Stool Amount Small Medium # Voids 2 3 2 - Review of Systems Constitutional Symptoms: Negative: Fever, Other - Chills Dermatology: Positive: Other - Redness to left LE, wound to the left foot Endocrinology: Positive: Obesity, Diabetes Mellitus Objective Active Medications: Acetaminophen (Tylenol Tab*) 650 mg PO Q6H PRN Reason: MILD PAIN or TEMP > 100.4 Albuterol (Ventolin Hfa Inhaler*) 1 puff INH Q4H PRN Reason: SOB/WHEEZING Albuterol/Ipratropium (Duoneb (Albuterol 2.5 Mg/Ipratropium 0.5 Mg)) 1 neb INH Q4H PRN Reason: SOB/WHEEZING Aliskiren (Tekturna Tab*) 150 mg PO DAILY [facility] Amlodipine Besylate (Norvasc Tab*) 10 mg PO DAILY [facility] Aspirin (Aspirin Ec Tab*) 81 mg PO DAILY [facility] Atorvastatin Calcium (Lipitor*) 40 mg PO 1700 [facility] Colchicine (Colcrys*) 0.6 mg PO DAILY PRN Reason: PAIN - MODERATE Dextrose (Dextrose 50% Vial 50 Ml*) 25 ml IV PUSH PRN Reason: FS < 60 Escitalopram Oxalate (Lexapro *) 10 mg PO DAILY [facility] Fluticasone Propionate (Flonase Nasal [place] 50mcg*) 2 spray BOTH NARES BEDTIME [facility] Folic Acid (Folvite Tab*) 1 mg PO DAILY [facility] Cefazolin Sodium/Dextrose (Kefzol 2 Gm Premix In Ors(*)) 2 gm in 50 mls @ 100 mls/hr IVPB Q8H [facility] Insulin Human NPH (Insulin Nph(*)) 25 units SUBCUT BEDTIME [facility] Insulin Human Regular (Insulin Regular(*)) 0 units SUBCUT AC [facility]; Protocol Insulin Human Regular (Insulin Regular(*)) 35 units SUBCUT AC [facility] Lactobacillus Rhamnosus (Lactobacillus Acidophilus*) 1 tab PO BID [facility] Lorazepam (Ativan Tab(*)) 0.5 mg PO BID PRN Reason: ANXIETY Magnesium Hydroxide (Milk Of Magnesia Liq*) 30 ml PO BID PRN Reason: CONSTIPATION Magnesium Oxide (Magox 400 Tab*) 400 mg PO BID [facility] Metolazone (Zaroxolyn Tab*) 5 mg PO DAILY@0830 [facility] Metoprolol Succinate (Toprol Xl Tab*) 100 mg PO BEDTIME [facility] Morphine Sulfate (Ms Contin(*)) 30 mg PO TID PRN Reason: PAIN Nystatin (Nystatin Top Powder*) 1 applic TOPICAL BID [facility] Ondansetron HCl (Zofran Inj*) 4 mg IV Q6H PRN Reason: NAUSEA Oxycodone HCl (Roxycodone Tab*) 5 mg PO Q6H PRN Reason: PAIN - MODERATE Oxycodone HCl (Roxycodone Tab*) 10 mg PO Q6H PRN Reason: PAIN - SEVERE Pharmacy Profile Note (Coumadin Daily Reminder*) 1 note FOLLOW UP 1700 [facility] Polyethylene Glycol/Electrolytes (Miralax*) 17 gm PO DAILY [facility] Pregabalin (Lyrica Cap(*)) 100 mg PO TID [facility] Senna (Senokot 8.6 Mg Tab*) 1 tab PO BEDTIME PRN Reason: CONSTIPATION Spironolactone (Aldactone Tab*) 50 mg PO DAILY [facility] Throat Lozenges (Chloraseptic Mely*) 1 mely PO Q1H PRN Reason: SORE THROAT Torsemide (Torsemide) 40 mg PO DAILY [facility] Umeclidinium [place] (Incruse Ellipta Mdi (Nf)) 1 inh INH DAILY [facility] Warfarin Sodium (Coumadin Tab(*)) 3 mg PO DAILY@1700 [facility]; Protocol Vital Signs 03/25/19 03/25/19 03/25/19 09:47 10:42 12:08 Temperature 98.1 F Pulse Rate 80 Respiratory 20 18 18 Rate Blood Pressure 120/68 (mmHg) O2 Sat by Pulse 99 Oximetry Oxygen Devices in Use Now: Nasal Cannula Appearance: NAD, laying in bed Ears/Nose/Mouth/Throat: Mucous Membranes Moist Respiratory: Symmetrical Chest Expansion and Respiratory Effort Extremities: - - Bilateral LE edema L>R. 1+ bilateral DP pulses. Skin: - - See skin note below Neurological: Alert and Oriented x 3 Result Diagrams: 03/25/19 05:42 03/25/19 05:42 Additional Lab and Data: Laboratory Tests 03/14/19 03/15/19 03/24/19 18:23 06:08 13:03 Hemoglobin A1c 12.4 H C-Reactive Protein 83.65 H Total Protein 6.4 Albumin 3.7 03/25/19 03/25/19 05:42 05:42 WBC 11.1 H Hgb 9.8 L Hct 29 L Plt Count 226 Sodium 133 L Potassium 4.1 Chloride 94 L Carbon Dioxide 33 H BUN 43 H Creatinine 1.37 H Glucose 229 H Microbiology and Other Data: Microbiology 03/15/19 00:18 Aerobic Blood Culture - Final No Source Provided No Growth Day 5 Anaerobic Blood Culture - Final No Growth Day 5 03/15/19 00:18 Aerobic Blood Culture - Final No Source Provided No Growth Day 5 Anaerobic Blood Culture - Final No Growth Day 5 03/14/19 23:11 Gram Stain - Final Foot Left Wound Culture - Final Strep Agalactiae - (Group B) Diagnostic Imagin. Exam Date: 03/14/192004 - MRI LOWER EXTREMITY LEFT W/O IMPRESSION: 1. No MRI findings to correlate with patient's symptomatology. Specifically no osteomyelitis. 2. Left foot cellulitis. 2. Exam Date: 03/16/192000 - VL LOWER EXT VEINS LEFT IMPRESSION: No sonographic evidence of femoral-popliteal deep vein thrombosis. 3. Exam Date: 03/21/19 1016 - CT EXTREMITY LOWER LEFT WO IMPRESSION: FINDINGS MOST CONSISTENT WITH CELLULITIS, NO EVIDENCE FOR ABSCESS. Skin Deviation Note - Skin Deviation Findings Left foot. There is an ulcer to the plantar aspect of the foot, near the 5th MTP joint. There is dry necrotic tissue, area measures 0.8 cm x 0.8 cm x 0.1 cm. The wound base is 100% black dry eschar. The surrounding tissue is calloused. There is no drainage. No erythema. Wound Problem/Plan Assessment: Mr. Cordon is a 58 yo male with PMH significant for Afib, heart failure, HTN, DM2, CKD3, and seronegative RA; who presented to the emergency room with left LE redness and swelling. He was admitted to the hospital for left LE cellulitis. He presented to the hospital with an ulcer to the left foot. 1. Left foot diabetic ulcer. No signs of infection at this time. Neighbor recently shaved a callous, then Pt noted to have an open wound once the callous was parred. Recommend washing the foot with soap and water. No dressing required at this time. Consider ABIs to access for underlying circulatory issues contributing to the wound. Consider referral to the wound clinic vs Podiatry at discharge. 2. Left LE cellulitis. Present on admission, currently on IV ABX per ID. Afebrile and continues to have mild leukocytosis. 3. DM2. HgA1C 12.4 during this admission. Maintain good glycemic control to allow for wound healing. 4. Morbid obesity. BMI 49.0 5. Diet. Consistent carb diet. 6. Code Status. Full Code. 7. Disposition. Inpatient, disposition per primary team. TIME SPENT: Time for this wound consultation was 20 minutes and 10 minutes was spent with the patient discussing past medical history; removing the old bandage ; assessing, measuring, and photographing the wounds. Is Patient a Wound Clinic Patient: No Attending: Irina Cabello
[2019-03-25] MEDS: Atorvastatin* 40 MG TAB PO SCH (17:16)
[2019-03-25] MEDS: Warfarin TAB(*) 3 MG PO SCH (17:17)
[2019-03-25] MEDS: Fluticasone NASAL SPRAY 50MCG* 16 gm SPRAY BTL BOTH NARES SCH (20:44)
[2019-03-25] MEDS: Metoprolol Succinate XL TAB* 100 MG PO SCH (20:45)
[2019-03-25] MEDS: Insulin NPH(*) 1 UNITS UNIT SUBCUT SCH (21:43)
[2019-03-26] MEDS: ceFAZolin 2 GM PREMIX in ORs 2 GM/50 ML BAG IVPB SCH (02:05)
[2019-03-26] MEDS: Morphine TAB Extended Release (*) 30 MG TAB.ER PO PRN (06:24)
[2019-03-26] MEDS: Acetaminophen TAB* 325 MG PO PRN (06:24)
[2019-03-26 06:42] LABS: INR 1.85 (0.82-1.09)
[2019-03-26] MEDS: Umeclidinium 62.5 MDI(NF) MDI INH SCH (07:30)
[2019-03-26] MEDS: Colchicine* 0.6 MG TAB PO PRN (08:55)
[2019-03-26] MEDS: Aliskiren TAB* 150 MG PO SCH (08:55)
[2019-03-26] MEDS: Magnesium Oxide TAB* 400 MG PO SCH (08:56)
[2019-03-26] MEDS: Escitalopram * 10 MG TAB PO SCH (08:56)
[2019-03-26] MEDS: Folic Acid TAB* 1 MG PO SCH (08:56)
[2019-03-26] MEDS: Pregabalin 100 mg CAP (*) PO SCH (08:56)
[2019-03-26] MEDS: Aspirin EC TAB* 81 MG TAB.EC PO SCH (08:56)
[2019-03-26] MEDS: Lactobacillus Acidophilus* 1 TAB PO SCH (08:57)
[2019-03-26] MEDS: Metolazone TAB* 5 MG PO SCH (08:57)
[2019-03-26] MEDS: oxyCODONE TAB* 5 MG TAB PO PRN (08:57)
[2019-03-26] MEDS: amLODIPine TAB* 5 MG PO SCH (08:57)
[2019-03-26] MEDS: LORazepam TAB(*) 0.5 MG PO PRN (08:58)
[2019-03-26] MEDS: Nystatin TOP POWDER* 15 GM BTL TOPICAL SCH (08:59)
[2019-03-26] MEDS ORDERED: Insulin REGULAR(*) 1 UNITS UNIT SUBCUT SCH (09:00)
[2019-03-26] MEDS ORDERED: Amoxicillin PO (*) 500 MG CAP PO SCH (09:00)
[2019-03-26] MEDS: Polyethylene Glycol 3350* 17 GM PACKET PO SCH (09:32)
[2019-03-26] MEDS: Spironolactone TAB* 25 MG PO SCH (09:34)
[2019-03-26] MEDS: Torsemide TAB 10 MG PO SCH (09:34)
[2019-03-26] MEDS: Insulin REGULAR(*) 1 UNITS UNIT SUBCUT SCH ×2 (09:35→09:39)
--- NOTE | 2019-03-26 10:07 | PN ---
Progress Note - Progress Note Date of Service: 03/26/19 SOAP: Subjective: CC:cellulitis HPI: 58 year old man with obesity and left leg cellulitis, swelling and pain is improving. No fever, rash, or diarrhea. Appetite is good. Objective: Vital Signs Temp 36.8 C 03/26/19 08:58 Pulse 67 03/26/19 08:58 Resp 20 03/26/19 08:58 BP 117/43 03/26/19 08:58 Pulse Ox 100 03/26/19 08:58 Intake & Output 03/25/19 03/26/19 03/26/19 18:59 06:59 18:59 Intake Total 2602 642 Output Total 2700 1250 Balance -98 -608 Weight 332 lb 3.2 oz Intake: IV Fluids 62 40 Cefazolin 52 normal saline 10 40 IVPB 122 Cefazolin 59 normal saline 63 Oral 2540 480 Output: Urine 2700 1250 Other: Date of Last Bowel 03/25/2019 Movement # Bowel Movements 1 0 Estimated Stool Amount Medium # Voids 2 Gen:awake, no distress HEENT: no thrush Heart:RRR no murmur Lungs:CTA BL Abd:+BS NTND soft Skin: no rash MSK: Left lower leg diffuse edema and mild erythema, left knee trace edema, non tender Laboratory Results - last 24 hr 03/25/19 03/25/19 03/25/19 12:20 16:54 21:21 INR (Anticoag Therapy) POC Glucose (mg/dL) 341 H 333 H 350 H 03/26/19 03/26/19 06:23 07:47 INR (Anticoag Therapy) 1.85 H POC Glucose (mg/dL) 360 H Assessment: 1. Left leg cellulitis due to Grp B Strep, improving 2. morbid obesity Plan: 1. amoxicillin 500 mg by mouth three times daily for 7 more days, will follow at [facility] after discharge
[2019-03-26 10:36] VITALS: BP 118/52
== END 2019-03-26 11:30 | DRG 951 ==
LOC: ED 17:07 → MED 20:01
PROVIDERS: ADMIT Internal Medicine; ATTEND Internal Medicine
PROC: 0SJD3ZZ Inspection of Left Knee Joint, Percutaneous Approach (ICD-10-PCS; principal; 2019-03-24)
DX: E11.628 Type 2 diabetes mellitus with other skin complications (principal); I50.33 Acute on chronic diastolic (congestive) heart failure; L03.116 Cellulitis of left lower limb; I42.0 Dilated cardiomyopathy; J96.11 Chronic respiratory failure with hypoxia; I13.0 Hypertensive heart and chronic kidney disease with heart failure and stage 1 through stage 4 chronic kidney disease, or unspecified chronic kidney disease; Z68.42 Body mass index [BMI] 45.0-49.9, adult; E11.621 Type 2 diabetes mellitus with foot ulcer; L97.529 Non-pressure chronic ulcer of other part of left foot with unspecified severity; E11.42 Type 2 diabetes mellitus with diabetic polyneuropathy; E78.00 Pure hypercholesterolemia, unspecified; J44.9 Chronic obstructive pulmonary disease, unspecified; G47.30 Sleep apnea, unspecified; M19.90 Unspecified osteoarthritis, unspecified site; F41.9 Anxiety disorder, unspecified; F32.9 Major depressive disorder, single episode, unspecified; I48.91 Unspecified atrial fibrillation; M06.9 Rheumatoid arthritis, unspecified; N18.3 Chronic kidney disease, stage 3 (moderate); G47.33 Obstructive sleep apnea (adult) (pediatric); E11.65 Type 2 diabetes mellitus with hyperglycemia; E11.40 Type 2 diabetes mellitus with diabetic neuropathy, unspecified; E11.21 Type 2 diabetes mellitus with diabetic nephropathy; E66.01 Morbid (severe) obesity due to excess calories; E11.319 Type 2 diabetes mellitus with unspecified diabetic retinopathy without macular edema; B95.1 Streptococcus, group B, as the cause of diseases classified elsewhere; R79.1 Abnormal coagulation profile; T38.3X5A Adverse effect of insulin and oral hypoglycemic [antidiabetic] drugs, initial encounter; Y92.239 Unspecified place in hospital as the place of occurrence of the external cause; R79.89 Other specified abnormal findings of blood chemistry; Z87.891 Personal history of nicotine dependence; Z88.8 Allergy status to other drugs, medicaments and biological substances; Z79.82 Long term (current) use of aspirin; Z79.4 Long term (current) use of insulin; Z79.899 Other long term (current) drug therapy; Z79.01 Long term (current) use of anticoagulants
CPT/HCPCS: 36415; 80048; 80053; 80202; 82565; 82947; 83036; 83605; 83735; 84520; 85025; 85610; 86140; 87040; 87070; 87077; 87186; 87205; 90686; 94640; 94660; 96365; 96375; 99284; A9270-GY; G8978-GP-CK; G8979-GP-CI; J0690; J0692; J2270; J3370

== ENCOUNTER 2020-05-14 11:10 | Inpatient (IN) ==
[2020-05-14 11:50] LABS: ABS Basophils 0.1 10^3/ul (0-0.2); ABS Eosinophils 0.1 10^3/ul (0-0.6); ABS Lymphocytes 0.7 10^3/ul (1.0-4.8); ABS Monocytes 0.8 10^3/ul (0-0.8); ABS Neutrophils 6.7 10^3/ul (1.5-7.7); Eosinophil % 0.6 %; Hematocrit 41 % (42-52); Hemoglobin 13.4 g/dL (14.0-18.0); Lymphocyte % 8.5 %; Mean Corpuscular HGB Conc 33 g/dL (31-36); Mean Corpuscular Hemoglobin 31 pg (27-31); Mean Corpuscular Volume 93 fL (80-94); Mean Platelet Volume 9.4 fL (7.4-10.4); Platelet Count 221 10^3/uL (150-450); Red Blood Count 4.41 10^6 /uL (4.18-5.48); Red Cell Distribution Width 15 % (10-15); White Blood Count 8.3 10^3/uL (3.5-10.8)
[2020-05-14 12:16] LABS: ALT 30 U/L (7-52); AST 50 U/L (13-39); Albumin 3.1 g/dL (3.2-5.2); Albumin/Globulin Ratio 0.8 (1-3); Alkaline Phosphatase 82 U/L (34-104); Anion Gap 11 mmol/L (2-11); BUN/Creatinine Ratio 19.8 (8-20); Blood Urea Nitrogen 19 mg/dL (6-24); C Reactive Protein 17.28 mg/L (<8.01); CO2 Carbon Dioxide 28 mmol/L (22-32); Calcium 9.5 mg/dL (8.6-10.3); Chloride 94 mmol/L (101-111); EGFR Non-African American 80.2 (>60); Globulin 3.7 g/dL (2-4); Glucose 343 mg/dL (70-100); Lipase 49 U/L (11.0-82.0); Magnesium 1.7 mg/dL (1.9-2.7); Potassium 3.7 mmol/L (3.5-5.0); Sodium 133 mmol/L (135-145); Total Protein 6.8 g/dL (6.4-8.9)
[2020-05-14 12:19] LABS: Troponin I 0.04 ng/mL (<0.03)
[2020-05-14] MEDS ORDERED: NS 0.9% 1000 ml BAG 1,000 ML IV ONE (13:52)
[2020-05-14] MEDS ORDERED: Magnesium Sulfate IV 1GM/100ML 1 GM/100 ML BAG IV ONE (15:03)
[2020-05-14] MEDS ORDERED: Dextrose 50% Syringe 50 ml 25 GM/50 ML SYRINGE IV PUSH PRN (16:53)
[2020-05-14 17:57] LABS: Urine Appearance Clear; Urine Bilirubin Negative (Negative); Urine Blood Negative (Negative); Urine Color Yellow; Urine Glucose 3+(>=500 mg/dL) (Negative); Urine Ketones 1+ (Negative); Urine Nitrite Negative (Negative); Urine Protein 3+(>=500 mg/dL) (Negative); Urine Specific Gravity 1.022 (1.010-1.030); Urine Urobilinogen Negative (Negative)
[2020-05-14 18:00] LABS: Urine Bacteria Absent (Absent); Urine Red Blood Cell Trace(0-2/hpf) (Absent); Urine White Blood Cell Trace(0-5/hpf) (Absent)
[2020-05-14] MEDS: Insulin GLARGINE 100 un/ml 10 ml VIAL SUBCUT SCH (20:28)
[2020-05-15] MEDS: Mometasone/Formoter 100/5 MDI INH SCH ×3 (06:28→19:50)
[2020-05-15 06:31] LABS: ABS Eosinophils 0.2 10^3/ul (0-0.6); ABS Lymphocytes 0.8 10^3/ul (1.0-4.8); ABS Monocytes 0.7 10^3/ul (0-0.8); ABS Neutrophils 5.4 10^3/ul (1.5-7.7); Eosinophil % 2.8 %; Hematocrit 38 % (42-52); Hemoglobin 12.8 g/dL (14.0-18.0); Lymphocyte % 11.7 %; Mean Corpuscular HGB Conc 34 g/dL (31-36); Mean Corpuscular Hemoglobin 31 pg (27-31); Mean Corpuscular Volume 93 fL (80-94); Mean Platelet Volume 9.3 fL (7.4-10.4); Platelet Count 204 10^3/uL (150-450); Red Blood Count 4.14 10^6 /uL (4.18-5.48); Red Cell Distribution Width 15 % (10-15); White Blood Count 7.2 10^3/uL (3.5-10.8)
[2020-05-15 06:48] LABS: BUN/Creatinine Ratio 19.2 (8-20); Calcium 8.7 mg/dL (8.6-10.3); EGFR African American 123.3 (>60); EGFR Non-African American 101.9 (>60)
[2020-05-15] MEDS: SPIRIVA RESPIMAT 2.5 MCG INH SCH (07:56)
[2020-05-15] MEDS: Aspirin EC 81 mg TAB.EC (enteric coated) PO SCH (08:37)
[2020-05-15] MEDS: Insulin GLARGINE 100 un/ml 10 ml VIAL SUBCUT SCH (08:43)
[2020-05-15 08:55] LABS: Troponin I 0.03 ng/mL (<0.03)
[2020-05-15] MEDS: Fluticasone NASAL SPRAY 50MCG 16 gm SPRAY BTL INTRANASAL SCH (11:41)
[2020-05-15 12:10] LABS: Troponin I 0.03 ng/mL (<0.03)
[2020-05-15] MEDS: Morphine ER 30 mg TAB ** extended release PO PRN ×2 (12:27→20:51)
[2020-05-15 13:50] LABS: TSH Ultra Thyroid Stim Horm 2.92 mcIU/mL (0.34-5.60)
[2020-05-15] MEDS: Nystatin TOP POWDER 15 GM BTL TOPICAL SCH ×2 (13:56→23:10)
[2020-05-15] MEDS: Potassium Chlor 20 meq TAB.ER PO SCH ×2 (18:07→20:33)
[2020-05-15] MEDS ORDERED: Insulin GLARGINE 100 un/ml 10 ml VIAL SUBCUT SCH (21:00)
[2020-05-16 04:48] LABS: BUN/Creatinine Ratio 19.6 (8-20); Calcium 8.5 mg/dL (8.6-10.3); EGFR African American 90.5 (>60); EGFR Non-African American 74.8 (>60); Potassium 3.8 mmol/L (3.5-5.0)
[2020-05-16] MEDS: Mometasone/Formoter 100/5 MDI INH SCH ×2 (07:36→19:33)
[2020-05-16] MEDS: SPIRIVA RESPIMAT 2.5 MCG INH SCH (07:36)
[2020-05-16] MEDS: Insulin GLARGINE 100 un/ml 10 ml VIAL SUBCUT SCH ×2 (09:37→21:39)
[2020-05-16] MEDS: Aspirin EC 81 mg TAB.EC (enteric coated) PO SCH (10:04)
[2020-05-16] MEDS: Nystatin TOP POWDER 15 GM BTL TOPICAL SCH ×3 (10:07→21:38)
[2020-05-16] MEDS: Fluticasone NASAL SPRAY 50MCG 16 gm SPRAY BTL INTRANASAL SCH (11:55)
[2020-05-16] MEDS: Morphine ER 30 mg TAB ** extended release PO PRN ×2 (12:01→21:38)
[2020-05-17] MEDS ORDERED: Anidulafungin 200 MG in NS 0.9% 250 ml 200 ML IVPB ONE
[2020-05-17 06:48] LABS: ABS Basophils 0.1 10^3/ul (0-0.2); ABS Eosinophils 0.2 10^3/ul (0-0.6); ABS Lymphocytes 1.1 10^3/ul (1.0-4.8); ABS Monocytes 0.6 10^3/ul (0-0.8); ABS Neutrophils 5.6 10^3/ul (1.5-7.7); Eosinophil % 2.6 %; Hematocrit 38 % (42-52); Hemoglobin 12.9 g/dL (14.0-18.0); Lymphocyte % 14.8 %; Mean Corpuscular HGB Conc 34 g/dL (31-36); Mean Corpuscular Hemoglobin 31 pg (27-31); Mean Corpuscular Volume 91 fL (80-94); Nucleated Red Blood Cells % 0.1; Platelet Count 214 10^3/uL (150-450); Red Blood Count 4.17 10^6 /uL (4.18-5.48); Red Cell Distribution Width 15 % (10-15); White Blood Count 7.6 10^3/uL (3.5-10.8)
[2020-05-17] MEDS: SPIRIVA RESPIMAT 2.5 MCG INH SCH (07:28)
[2020-05-17] MEDS: Mometasone/Formoter 100/5 MDI INH SCH ×2 (07:29→20:31)
[2020-05-17] MEDS: Aspirin EC 81 mg TAB.EC (enteric coated) PO SCH (09:11)
[2020-05-17] MEDS: Insulin GLARGINE 100 un/ml 10 ml VIAL SUBCUT SCH ×2 (09:11→22:56)
[2020-05-17] MEDS: Fluticasone NASAL SPRAY 50MCG 16 gm SPRAY BTL INTRANASAL SCH (09:13)
[2020-05-17] MEDS: Nystatin TOP POWDER 15 GM BTL TOPICAL SCH ×3 (09:22→23:02)
[2020-05-17 12:37] LABS: Glucose Confirmatory 423 mg/dL (70-100)
[2020-05-17] MEDS: Morphine ER 30 mg TAB ** extended release PO PRN (22:57)
[2020-05-18] MEDS ORDERED: Anidulafungin 100 MG in NS 0.9% 100 ml BAG 100 ML IVPB SCH
[2020-05-18 05:06] LABS: ABS Basophils 0.1 10^3/ul (0-0.2); ABS Eosinophils 0.2 10^3/ul (0-0.6); ABS Lymphocytes 1.1 10^3/ul (1.0-4.8); ABS Monocytes 0.6 10^3/ul (0-0.8); ABS Neutrophils 5.3 10^3/ul (1.5-7.7); Eosinophil % 2.6 %; Hematocrit 36 % (42-52); Hemoglobin 12.1 g/dL (14.0-18.0); Lymphocyte % 15.3 %; Mean Corpuscular HGB Conc 34 g/dL (31-36); Mean Corpuscular Hemoglobin 31 pg (27-31); Mean Corpuscular Volume 92 fL (80-94); Mean Platelet Volume 9.7 fL (7.4-10.4); Platelet Count 194 10^3/uL (150-450); Red Blood Count 3.88 10^6 /uL (4.18-5.48); Red Cell Distribution Width 15 % (10-15); White Blood Count 7.2 10^3/uL (3.5-10.8)
[2020-05-18 05:23] LABS: BUN/Creatinine Ratio 29.3 (8-20); Calcium 8.6 mg/dL (8.6-10.3); EGFR Non-African American 64.4 (>60); Magnesium 1.7 mg/dL (1.9-2.7); Potassium 3.4 mmol/L (3.5-5.0)
[2020-05-18] MEDS ORDERED: Magnesium Sulfate IV 3 GM in NS 0.9% 100 ml BAG 100 ML IVPB ONE (07:28)
[2020-05-18] MEDS: Fluticasone NASAL SPRAY 50MCG 16 gm SPRAY BTL INTRANASAL SCH (08:14)
[2020-05-18] MEDS: Insulin GLARGINE 100 un/ml 10 ml VIAL SUBCUT SCH ×2 (08:15→20:10)
[2020-05-18] MEDS: Aspirin EC 81 mg TAB.EC (enteric coated) PO SCH (08:17)
[2020-05-18] MEDS: Potassium Chlor 20 meq TAB.ER PO SCH ×2 (08:18→20:10)
[2020-05-18] MEDS: Nystatin TOP POWDER 15 GM BTL TOPICAL SCH ×3 (08:20→20:15)
[2020-05-18] MEDS: Mometasone/Formoter 100/5 MDI INH SCH ×2 (08:25→19:23)
[2020-05-18] MEDS: SPIRIVA RESPIMAT 2.5 MCG INH SCH (08:26)
[2020-05-18] MEDS ORDERED: Dextrose 50% Syringe 50 ml 25 GM/50 ML SYRINGE IV PUSH PRN (13:17)
[2020-05-19] MEDS: Morphine ER 30 mg TAB ** extended release PO PRN ×2 (00:49→17:53)
[2020-05-19] MEDS: Anidulafungin 100 MG in NS 0.9% 100 ml BAG 100 ML IVPB SCH (00:50)
[2020-05-19 07:00] LABS: ABS Eosinophils 0.2 10^3/ul (0-0.6); ABS Lymphocytes 1.3 10^3/ul (1.0-4.8); ABS Monocytes 0.7 10^3/ul (0-0.8); ABS Neutrophils 5.8 10^3/ul (1.5-7.7); Eosinophil % 2.1 %; Hematocrit 37 % (42-52); Hemoglobin 12.3 g/dL (14.0-18.0); Lymphocyte % 16.4 %; Mean Corpuscular HGB Conc 34 g/dL (31-36); Mean Corpuscular Hemoglobin 31 pg (27-31); Mean Corpuscular Volume 92 fL (80-94); Mean Platelet Volume 9.8 fL (7.4-10.4); Platelet Count 225 10^3/uL (150-450); Red Blood Count 3.96 10^6 /uL (4.18-5.48); Red Cell Distribution Width 15 % (10-15)
[2020-05-19 07:27] LABS: BUN/Creatinine Ratio 28.7 (8-20); Calcium 9.1 mg/dL (8.6-10.3); EGFR African American 73.6 (>60); EGFR Non-African American 60.8 (>60); Potassium 3.8 mmol/L (3.5-5.0)
[2020-05-19] MEDS: SPIRIVA RESPIMAT 2.5 MCG INH SCH (07:35)
[2020-05-19] MEDS: Mometasone/Formoter 100/5 MDI INH SCH ×2 (07:35→19:51)
[2020-05-19] MEDS: Fluticasone NASAL SPRAY 50MCG 16 gm SPRAY BTL INTRANASAL SCH (08:34)
[2020-05-19] MEDS: Aspirin EC 81 mg TAB.EC (enteric coated) PO SCH (08:36)
[2020-05-19] MEDS: Insulin GLARGINE 100 un/ml 10 ml VIAL SUBCUT SCH ×2 (08:37→21:16)
[2020-05-19] MEDS: Nystatin TOP POWDER 15 GM BTL TOPICAL SCH ×3 (08:37→21:17)
[2020-05-19] MEDS ORDERED: Perflutren Lipid Microsphere 3 ML VIAL ONE (14:06)
[2020-05-19] MEDS ORDERED: Dextrose 50% Syringe 50 ml 25 GM/50 ML SYRINGE IV PUSH PRN (18:04)
[2020-05-19] MEDS: Senna TAB 8.6 mg TAB PO SCH (19:58)
[2020-05-19] MEDS ORDERED: Insulin GLARGINE 100 un/ml 10 ml VIAL SUBCUT SCH ×2 (21:00)
[2020-05-20] MEDS: Anidulafungin 100 MG in NS 0.9% 100 ml BAG 100 ML IVPB SCH (00:03)
[2020-05-20] MEDS: Morphine ER 30 mg TAB ** extended release PO PRN ×2 (05:16→21:54)
[2020-05-20 05:53] LABS: ABS Basophils 0.1 10^3/ul (0-0.2); ABS Eosinophils 0.2 10^3/ul (0-0.6); ABS Lymphocytes 1.1 10^3/ul (1.0-4.8); ABS Monocytes 0.8 10^3/ul (0-0.8); Eosinophil % 2.5 %; Hematocrit 38 % (42-52); Hemoglobin 12.5 g/dL (14.0-18.0); Lymphocyte % 15.4 %; Mean Corpuscular HGB Conc 33 g/dL (31-36); Mean Corpuscular Hemoglobin 31 pg (27-31); Mean Corpuscular Volume 94 fL (80-94); Mean Platelet Volume 9.6 fL (7.4-10.4); Nucleated Red Blood Cells % 0.1; Platelet Count 224 10^3/uL (150-450); Red Blood Count 4.01 10^6 /uL (4.18-5.48); Red Cell Distribution Width 15 % (10-15); White Blood Count 7.1 10^3/uL (3.5-10.8)
[2020-05-20 06:05] LABS: EGFR African American 73.6 (>60); EGFR Non-African American 60.8 (>60); Potassium 3.8 mmol/L (3.5-5.0)
[2020-05-20] MEDS: SPIRIVA RESPIMAT 2.5 MCG INH SCH (07:47)
[2020-05-20] MEDS: Mometasone/Formoter 100/5 MDI INH SCH ×2 (07:47→20:02)
[2020-05-20] MEDS ORDERED: Influenza VAC *QUAD* 2020-21* 0.5 ML SYRINGE IM ONE (09:00)
[2020-05-20] MEDS: Insulin GLARGINE 100 un/ml 10 ml VIAL SUBCUT SCH ×2 (09:49→22:01)
[2020-05-20] MEDS: Aspirin EC 81 mg TAB.EC (enteric coated) PO SCH (09:49)
[2020-05-20] MEDS: Nystatin TOP POWDER 15 GM BTL TOPICAL SCH ×3 (09:53→21:57)
[2020-05-20] MEDS: Fluticasone NASAL SPRAY 50MCG 16 gm SPRAY BTL INTRANASAL SCH (12:41)
[2020-05-20] MEDS ORDERED: Magnesium Hydroxide LIQ 30 ML UDC PO PRN (18:20)
[2020-05-20] MEDS: Senna TAB 8.6 mg TAB PO SCH (21:53)
[2020-05-21 06:31] LABS: BUN/Creatinine Ratio 30.5 (8-20); Calcium 9.2 mg/dL (8.6-10.3); EGFR African American 76.5 (>60); EGFR Non-African American 63.2 (>60); Magnesium 1.7 mg/dL (1.9-2.7); Potassium 3.6 mmol/L (3.5-5.0)
[2020-05-21] MEDS ORDERED: Magnesium Sulfate 2 gm BAG 2 GM/50 ML BAG IVPB ONE (07:33)
[2020-05-21] MEDS: Mometasone/Formoter 100/5 MDI INH SCH ×2 (08:05→20:29)
[2020-05-21] MEDS: SPIRIVA RESPIMAT 2.5 MCG INH SCH (08:05)
[2020-05-21] MEDS: Fluticasone NASAL SPRAY 50MCG 16 gm SPRAY BTL INTRANASAL SCH (09:08)
[2020-05-21] MEDS: Insulin GLARGINE 100 un/ml 10 ml VIAL SUBCUT SCH ×2 (09:08→21:36)
[2020-05-21] MEDS: Aspirin EC 81 mg TAB.EC (enteric coated) PO SCH (09:10)
[2020-05-21] MEDS: Nystatin TOP POWDER 15 GM BTL TOPICAL SCH ×3 (09:11→21:32)
[2020-05-21] MEDS ORDERED: Polyethylene Glycol 3350 17 GM PACKET PO PRN (10:04)
[2020-05-21] MEDS ORDERED: Lactulose 30 ml UDC PO PRN (10:04)
[2020-05-21 12:52] LABS: Glucose Confirmatory 405 mg/dL (70-100)
[2020-05-21] MEDS ORDERED: Dextrose 50% Syringe 50 ml 25 GM/50 ML SYRINGE IV PUSH PRN ×2 (17:17→17:19)
[2020-05-21] MEDS: Morphine ER 30 mg TAB ** extended release PO PRN (21:31)
[2020-05-21] MEDS: Senna TAB 8.6 mg TAB PO SCH (21:31)
[2020-05-22] MEDS: Mometasone/Formoter 100/5 MDI INH SCH ×2 (07:33→20:37)
[2020-05-22] MEDS: SPIRIVA RESPIMAT 2.5 MCG INH SCH (07:34)
[2020-05-22] MEDS: Aspirin EC 81 mg TAB.EC (enteric coated) PO SCH (08:41)
[2020-05-22] MEDS: Nystatin TOP POWDER 15 GM BTL TOPICAL SCH ×3 (09:23→21:50)
[2020-05-22] MEDS: Fluticasone NASAL SPRAY 50MCG 16 gm SPRAY BTL INTRANASAL SCH (09:23)
[2020-05-22] MEDS: Senna TAB 8.6 mg TAB PO SCH (21:48)
[2020-05-22] MEDS: Morphine ER 30 mg TAB ** extended release PO PRN (21:48)
[2020-05-22] MEDS: Insulin GLARGINE 100 un/ml 10 ml VIAL SUBCUT SCH (21:50)
[2020-05-23 05:44] LABS: Calcium 9.2 mg/dL (8.6-10.3); EGFR African American 72.9 (>60); EGFR Non-African American 60.2 (>60); Magnesium 1.9 mg/dL (1.9-2.7); Potassium 3.8 mmol/L (3.5-5.0)
[2020-05-23] MEDS: Fluticasone NASAL SPRAY 50MCG 16 gm SPRAY BTL INTRANASAL SCH (07:48)
[2020-05-23] MEDS: Aspirin EC 81 mg TAB.EC (enteric coated) PO SCH (07:49)
[2020-05-23] MEDS: Nystatin TOP POWDER 15 GM BTL TOPICAL SCH ×3 (07:50→22:11)
[2020-05-23] MEDS: SPIRIVA RESPIMAT 2.5 MCG INH SCH (08:13)
[2020-05-23] MEDS: Mometasone/Formoter 100/5 MDI INH SCH ×2 (08:13→19:37)
[2020-05-23] MEDS: Senna TAB 8.6 mg TAB PO SCH (19:54)
[2020-05-23] MEDS: Morphine ER 30 mg TAB ** extended release PO PRN (19:57)
[2020-05-23] MEDS: Insulin GLARGINE 100 un/ml 10 ml VIAL SUBCUT SCH (19:59)
[2020-05-24] MEDS: SPIRIVA RESPIMAT 2.5 MCG INH SCH (07:34)
[2020-05-24] MEDS: Mometasone/Formoter 100/5 MDI INH SCH (07:34)
[2020-05-24] MEDS: Aspirin EC 81 mg TAB.EC (enteric coated) PO SCH (08:31)
[2020-05-24] MEDS: Fluticasone NASAL SPRAY 50MCG 16 gm SPRAY BTL INTRANASAL SCH (08:32)
[2020-05-24] MEDS: Nystatin TOP POWDER 15 GM BTL TOPICAL SCH ×2 (08:32→13:24)
[2020-05-24 12:23] LABS: Glucose Confirmatory 420 mg/dL (70-100)
[2020-05-24 12:25] VITALS: BP 133/75
== END 2020-05-24 14:00 | DRG 420 ==
LOC: ED 11:10 → MED 16:46 → SUATTDRO 16:46 → MED 20:04
PROVIDERS: ADMIT Internal Medicine; ATTEND Internal Medicine

== ENCOUNTER 2020-06-11 18:32 | Inpatient (IN) ==
[2020-06-11 19:11] LABS: ABS Basophils 0.1 10^3/ul (0-0.2); ABS Lymphocytes 0.5 10^3/ul (1.0-4.8); ABS Neutrophils 15.6 10^3/ul (1.5-7.7); Eosinophil % 0.1 %; Hematocrit 37 % (42-52); Hemoglobin 12.6 g/dL (14.0-18.0); Lymphocyte % 2.7 %; Mean Corpuscular HGB Conc 34 g/dL (31-36); Mean Corpuscular Hemoglobin 31 pg (27-31); Mean Corpuscular Volume 91 fL (80-94); Mean Platelet Volume 10.4 fL (7.4-10.4); Platelet Count 171 10^3/uL (150-450); Red Blood Count 4.08 10^6 /uL (4.18-5.48); Red Cell Distribution Width 15 % (10-15); White Blood Count 17.1 10^3/uL (3.5-10.8)
[2020-06-11 19:21] LABS: Activated Partial Thrombo Time 37.7 seconds (26.0-38.0); INR 2.4 (0.82-1.09)
[2020-06-11 19:29] LABS: ALT 42 U/L (7-52); AST 30 U/L (13-39); Albumin 3.7 g/dL (3.2-5.2); Albumin/Globulin Ratio 0.9 (1-3); Alkaline Phosphatase 91 U/L (34-104); Anion Gap 8 mmol/L (2-11); BUN/Creatinine Ratio 35.3 (8-20); Blood Urea Nitrogen 54 mg/dL (6-24); CO2 Carbon Dioxide 34 mmol/L (22-32); Calcium 9.8 mg/dL (8.6-10.3); Chloride 93 mmol/L (101-111); EGFR African American 56.7 (>60); EGFR Non-African American 46.8 (>60); Globulin 3.9 g/dL (2-4); Glucose 149 mg/dL (70-100); Potassium 3.5 mmol/L (3.5-5.0); Sodium 135 mmol/L (135-145); Total Protein 7.6 g/dL (6.4-8.9)
[2020-06-11 19:33] LABS: Troponin I 0.04 ng/mL (<0.03)
[2020-06-11] MEDS ORDERED: Piperacillin/Tazobac ADVAN 3.375 GM in NS 0.9% 100 ml BAG 100 ML IV ONE (19:46)
[2020-06-11] MEDS ORDERED: NS 0.9% 1000 ml BAG 1,000 ML IV.FLUID IV ONE (19:46)
[2020-06-11] MEDS ORDERED: Morphine 4 MG/ML VIAL (1 ml) IV ONE (19:50)
[2020-06-11] MEDS ORDERED: Ondansetron 4 mg VIAL 2 MG/ML 2 ml VIAL IV ONE (19:50)
[2020-06-11] MEDS ORDERED: Dextrose 50% Syringe 50 ml 25 GM/50 ML SYRINGE IV PUSH PRN ×2 (21:02→22:00)
[2020-06-11] MEDS ORDERED: Vancomycin 1,000 MG in NS 0.9% 250 ml 250 ML IVPB ONE (21:02)
[2020-06-11] MEDS ORDERED: Vancomycin 2,000 MG in NS 0.9% 500 ml BAG 500 ML IVPB ONE (21:15)
[2020-06-11 21:50] LABS: Urine Appearance Clear; Urine Bilirubin Negative (Negative); Urine Blood Negative (Negative); Urine Color Yellow; Urine Glucose 1+(50 mg/dL) (Negative); Urine Ketones Negative (Negative); Urine Nitrite Negative (Negative); Urine Protein 2+(100 mg/dL) (Negative); Urine Specific Gravity 1.008 (1.010-1.030); Urine Urobilinogen Negative (Negative)
[2020-06-11 21:54] LABS: Urine Bacteria Absent (Absent); Urine Red Blood Cell Trace(0-2/hpf) (Absent); Urine Squamous Epithelial Cell Present (Absent); Urine White Blood Cell Trace(0-5/hpf) (Absent)
[2020-06-11] MEDS ORDERED: Albuterol 2.5mg/3 ml (0.083%) NEB.SOLN INH PRN (21:58)
[2020-06-11] MEDS ORDERED: Vancomycin per Pharmacy 1 EA NOTE FOLLOW UP SCH (22:00)
[2020-06-11 22:02] LABS: Urine Creatinine Concentration 37.16 mg/dL
[2020-06-11 23:32] LABS: Troponin I 0.03 ng/mL (<0.03)
[2020-06-12] MEDS: Senna TAB 8.6 mg TAB PO SCH ×2 (00:49→21:06)
[2020-06-12] MEDS: NS 0.9% 1000 ml BAG 1,000 ML IV SCH ×2 (00:49→14:45)
[2020-06-12 01:45] LABS: Troponin I 0.04 ng/mL (<0.03)
[2020-06-12] MEDS: Cefepime 2 GM in Dextrose 2 GM/50 ML BAG IV SCH ×2 (01:48→14:39)
[2020-06-12 06:11] LABS: ABS Eosinophils 0.1 10^3/ul (0-0.6); ABS Lymphocytes 0.7 10^3/ul (1.0-4.8); ABS Monocytes 0.7 10^3/ul (0-0.8); ABS Neutrophils 7.9 10^3/ul (1.5-7.7); Hematocrit 33 % (42-52); Lymphocyte % 7.4 %; Mean Corpuscular HGB Conc 33 g/dL (31-36); Mean Corpuscular Hemoglobin 31 pg (27-31); Mean Corpuscular Volume 93 fL (80-94); Mean Platelet Volume 10.4 fL (7.4-10.4); Platelet Count 126 10^3/uL (150-450); Red Blood Count 3.57 10^6 /uL (4.18-5.48); Red Cell Distribution Width 15 % (10-15); White Blood Count 9.5 10^3/uL (3.5-10.8)
[2020-06-12 06:17] LABS: INR 1.99 (0.82-1.09)
[2020-06-12 06:26] LABS: BUN/Creatinine Ratio 32.9 (8-20); Calcium 8.4 mg/dL (8.6-10.3); EGFR African American 55.8 (>60); EGFR Non-African American 46.1 (>60); Potassium 3.1 mmol/L (3.5-5.0)
[2020-06-12] MEDS: Mometasone/Formoter 100/5 MDI INH SCH ×2 (07:42→20:51)
[2020-06-12] MEDS: NFT: Umeclidinium 62.5 MDI(NF) MDI INH SCH (07:45)
[2020-06-12] MEDS: Insulin GLARGINE 100 un/ml 10 ml VIAL SUBCUT SCH ×2 (08:49→21:06)
[2020-06-12] MEDS: Morphine ER 15 mg TAB ** extended release PO SCH ×3 (08:51→21:07)
[2020-06-12] MEDS: Potassium Chlor 20 meq TAB.ER PO SCH ×2 (08:52→10:38)
[2020-06-12] MEDS ORDERED: Vancomycin 1000 MG in NS 0.9% 250 ML IVPB SCH (10:00)
[2020-06-13] MEDS: Cefepime 2 GM in Dextrose 2 GM/50 ML BAG IV SCH ×2 (02:43→14:18)
[2020-06-13] MEDS ORDERED: NS 0.9% 1000 ml BAG 1,000 ML IV SCH (04:30)
[2020-06-13 05:31] LABS: ABS Basophils 0.1 10^3/ul (0-0.2); ABS Eosinophils 0.2 10^3/ul (0-0.6); ABS Lymphocytes 0.7 10^3/ul (1.0-4.8); ABS Monocytes 0.4 10^3/ul (0-0.8); ABS Neutrophils 4.4 10^3/ul (1.5-7.7); Eosinophil % 3.1 %; Hematocrit 31 % (42-52); Hemoglobin 10.6 g/dL (14.0-18.0); Mean Corpuscular HGB Conc 34 g/dL (31-36); Mean Corpuscular Hemoglobin 31 pg (27-31); Mean Corpuscular Volume 92 fL (80-94); Platelet Count 120 10^3/uL (150-450); Red Blood Count 3.42 10^6 /uL (4.18-5.48); Red Cell Distribution Width 15 % (10-15); White Blood Count 5.7 10^3/uL (3.5-10.8)
[2020-06-13 05:46] LABS: Anion Gap 5 mmol/L (2-11); BUN/Creatinine Ratio 34.2 (8-20); Blood Urea Nitrogen 39 mg/dL (6-24); CO2 Carbon Dioxide 28 mmol/L (22-32); Calcium 8.6 mg/dL (8.6-10.3); Chloride 102 mmol/L (101-111); EGFR African American 79.6 (>60); EGFR Non-African American 65.7 (>60); Glucose 216 mg/dL (70-100); Potassium 3.6 mmol/L (3.5-5.0); Sodium 135 mmol/L (135-145)
[2020-06-13] MEDS: NFT: Umeclidinium 62.5 MDI(NF) MDI INH SCH (07:43)
[2020-06-13] MEDS: Mometasone/Formoter 100/5 MDI INH SCH ×2 (07:44→19:46)
[2020-06-13] MEDS: Insulin GLARGINE 100 un/ml 10 ml VIAL SUBCUT SCH ×2 (08:10→21:17)
[2020-06-13] MEDS: Morphine ER 15 mg TAB ** extended release PO SCH ×3 (08:12→21:15)
[2020-06-13] MEDS ORDERED: Vancomycin Trough Check NOTE FOLLOW UP ONE (09:30)
[2020-06-13 10:54] LABS: % Iron Saturation 43 % (15-55); Iron 105 ug/dL (50-212); Total Iron Binding Capacity 245 mcg/dL (250-450); Transferrin 175 mg/dL (203-362); Unsaturated Iron Binding < 230 ug/dL
[2020-06-13 11:17] LABS: Ferritin 197.3 ng/mL (24-336)
[2020-06-13 11:20] LABS: Folate 11.26 ng/mL (>3.99)
[2020-06-13 11:21] LABS: Vitamin B12 370 pg/mL (180-914)
[2020-06-13 12:00] LABS: Urine Appearance Clear; Urine Bilirubin Negative (Negative); Urine Blood Negative (Negative); Urine Color Yellow; Urine Glucose 2+(150 mg/dL) (Negative); Urine Ketones Negative (Negative); Urine Nitrite Negative (Negative); Urine Protein 3+(>=500 mg/dL) (Negative); Urine Specific Gravity 1.013 (1.010-1.030); Urine Urobilinogen Negative (Negative)
[2020-06-13 12:11] LABS: Urine Bacteria Absent (Absent); Urine Red Blood Cell Trace(0-2/hpf) (Absent); Urine White Blood Cell Trace(0-5/hpf) (Absent)
[2020-06-13] MEDS: Senna TAB 8.6 mg TAB PO SCH (21:14)
[2020-06-13] MEDS: NS 0.9% 1000 ml BAG 1,000 ML IV SCH (22:32)
[2020-06-14] MEDS: Cefepime 2 GM in Dextrose 2 GM/50 ML BAG IV SCH ×2 (01:30→14:53)
[2020-06-14 07:58] LABS: ABS Eosinophils 0.2 10^3/ul (0-0.6); ABS Lymphocytes 0.7 10^3/ul (1.0-4.8); ABS Monocytes 0.1 10^3/ul (0-0.8); ABS Neutrophils 4.7 10^3/ul (1.5-7.7); Eosinophil % 3.5 %; Hematocrit 31 % (42-52); Hemoglobin 10.6 g/dL (14.0-18.0); Lymphocyte % 11.9 %; Mean Corpuscular HGB Conc 34 g/dL (31-36); Mean Corpuscular Hemoglobin 31 pg (27-31); Mean Corpuscular Volume 91 fL (80-94); Mean Platelet Volume 10.4 fL (7.4-10.4); Platelet Count 133 10^3/uL (150-450); Red Blood Count 3.47 10^6 /uL (4.18-5.48); Red Cell Distribution Width 15 % (10-15); White Blood Count 5.7 10^3/uL (3.5-10.8)
[2020-06-14] MEDS: NFT: Umeclidinium 62.5 MDI(NF) MDI INH SCH (08:02)
[2020-06-14] MEDS: Mometasone/Formoter 100/5 MDI INH SCH ×2 (08:04→20:48)
[2020-06-14] MEDS ORDERED: Magnesium Hydroxide LIQ 30 ML UDC PO PRN (08:58)
[2020-06-14] MEDS ORDERED: Polyethylene Glycol 3350 17 GM PACKET PO PRN (08:58)
[2020-06-14] MEDS: Morphine ER 15 mg TAB ** extended release PO SCH ×3 (09:26→21:20)
[2020-06-14] MEDS: Insulin GLARGINE 100 un/ml 10 ml VIAL SUBCUT SCH ×2 (09:30→21:21)
[2020-06-14] MEDS: Senna TAB 8.6 mg TAB PO SCH (21:19)
[2020-06-15] MEDS: Cefepime 2 GM in Dextrose 2 GM/50 ML BAG IV SCH ×2 (02:23→14:29)
[2020-06-15] MEDS: Mometasone/Formoter 100/5 MDI INH SCH ×2 (07:50→19:14)
[2020-06-15] MEDS: Insulin GLARGINE 100 un/ml 10 ml VIAL SUBCUT SCH ×2 (09:10→21:49)
[2020-06-15] MEDS: Morphine ER 15 mg TAB ** extended release PO SCH ×3 (09:16→21:46)
[2020-06-15] MEDS ORDERED: Iodixanol (CONTRAST) 320 MG/ML 100 ML SDV IV ONE (10:03)
[2020-06-15 11:07] LABS: ABS Eosinophils 0.2 10^3/ul (0-0.6); ABS Lymphocytes 0.6 10^3/ul (1.0-4.8); ABS Monocytes 0.1 10^3/ul (0-0.8); ABS Neutrophils 5.1 10^3/ul (1.5-7.7); Eosinophil % 2.8 %; Hematocrit 34 % (42-52); Hemoglobin 11.6 g/dL (14.0-18.0); Lymphocyte % 10.3 %; Mean Corpuscular HGB Conc 34 g/dL (31-36); Mean Corpuscular Hemoglobin 31 pg (27-31); Mean Corpuscular Volume 92 fL (80-94); Mean Platelet Volume 9.9 fL (7.4-10.4); Platelet Count 156 10^3/uL (150-450); Red Blood Count 3.74 10^6 /uL (4.18-5.48); Red Cell Distribution Width 15 % (10-15); White Blood Count 6.1 10^3/uL (3.5-10.8)
[2020-06-15] MEDS ORDERED: Psyllium PAK PO PRN (14:56)
[2020-06-15] MEDS: NFT: Umeclidinium 62.5 MDI(NF) MDI INH SCH (16:15)
[2020-06-15] MEDS: Senna TAB 8.6 mg TAB PO SCH (21:45)
[2020-06-16] MEDS: Cefepime 2 GM in Dextrose 2 GM/50 ML BAG IV SCH ×2 (01:35→13:09)
[2020-06-16 07:03] LABS: ABS Basophils 0.1 10^3/ul (0-0.2); ABS Eosinophils 0.2 10^3/ul (0-0.6); ABS Lymphocytes 1.2 10^3/ul (1.0-4.8); ABS Monocytes 0.2 10^3/ul (0-0.8); ABS Neutrophils 4.4 10^3/ul (1.5-7.7); Eosinophil % 3.9 %; Hematocrit 32 % (42-52); Hemoglobin 10.9 g/dL (14.0-18.0); Mean Corpuscular HGB Conc 34 g/dL (31-36); Mean Corpuscular Hemoglobin 31 pg (27-31); Mean Corpuscular Volume 92 fL (80-94); Mean Platelet Volume 10.2 fL (7.4-10.4); Nucleated Red Blood Cells % 0.1; Platelet Count 155 10^3/uL (150-450); Red Blood Count 3.52 10^6 /uL (4.18-5.48); Red Cell Distribution Width 15 % (10-15); White Blood Count 6.1 10^3/uL (3.5-10.8)
[2020-06-16] MEDS: Mometasone/Formoter 100/5 MDI INH SCH (07:26)
[2020-06-16] MEDS: NFT: Umeclidinium 62.5 MDI(NF) MDI INH SCH (07:28)
[2020-06-16] MEDS: Insulin GLARGINE 100 un/ml 10 ml VIAL SUBCUT SCH (10:15)
[2020-06-16] MEDS: Morphine ER 15 mg TAB ** extended release PO SCH ×2 (10:19→13:51)
[2020-06-16 10:36] VITALS: BP 145/60
[2020-06-16 15:00] LABS: Calcium 8.9 mg/dL (8.6-10.3); Potassium 3.5 mmol/L (3.5-5.0)
[2020-06-16 15:03] LABS: EGFR African American 86.5 (>60); EGFR Non-African American 71.5 (>60)
== END 2020-06-16 17:00 | DRG 720 ==
LOC: ED 18:32 → MED 20:58
PROVIDERS: ADMIT Internal Medicine; ATTEND Pediatrics

== ENCOUNTER 2020-08-09 21:33 | Inpatient (IN) ==
[2020-08-09] MEDS ORDERED: Magnesium Sulfate 2 gm BAG 2 GM/50 ML BAG IV ONE (22:09)
[2020-08-09 22:21] LABS: Hematocrit 30 % (42-52); Hemoglobin 9.9 g/dL (14.0-18.0); Mean Corpuscular HGB Conc 33 g/dL (31-36); Mean Corpuscular Hemoglobin 31 pg (27-31); Mean Corpuscular Volume 93 fL (80-94); Mean Platelet Volume 8.7 fL (7.4-10.4); Platelet Count 256 10^3/uL (150-450); Red Blood Count 3.19 10^6 /uL (4.18-5.48); Red Cell Distribution Width 17 % (10-15)
[2020-08-09 22:48] LABS: ALT 33 U/L (7-52); AST 25 U/L (13-39); Albumin 3.3 g/dL (3.2-5.2); Alkaline Phosphatase 68 U/L (35-149); Anion Gap 9 mmol/L (2-11); Blood Urea Nitrogen 31 mg/dL (6-24); CO2 Carbon Dioxide 25 mmol/L (22-32); Calcium 8.9 mg/dL (8.6-10.3); Chloride 102 mmol/L (101-111); EGFR African American 74.3 (>60); EGFR Non-African American 61.4 (>60); Globulin 3.3 g/dL (2-4); Glucose 219 mg/dL (70-100); Potassium 3.8 mmol/L (3.5-5.0); Sodium 136 mmol/L (135-145); Total Protein 6.6 g/dL (6.4-8.9)
[2020-08-09 22:49] LABS: Activated Partial Thrombo Time 29.4 seconds (26.0-38.0); INR 1.22 (0.82-1.09)
[2020-08-09 22:52] LABS: Troponin I 0.03 ng/mL (<0.03)
[2020-08-09 22:54] LABS: ABS Basophils 0.1 10^3/ul (0-0.2); ABS Eosinophils 0.1 10^3/ul (0-0.6); ABS Monocytes 0.9 10^3/ul (0-0.8); ABS Neutrophils 7.9 10^3/ul (1.5-7.7); Eosinophil % 1.2 %; Lymphocyte % 9.5 %
[2020-08-09] MEDS ORDERED: Azithromycin 500 mg/250 ml NS 500 MG/250 ML BAG IVPB ONE (23:57)
[2020-08-09] MEDS ORDERED: Cefepime 1 GM in Dextrose 1 GM/50 ML BAG IV ONE (23:57)
[2020-08-10] MEDS ORDERED: Dextrose 50% Syringe 50 ml 25 GM/50 ML SYRINGE IV PUSH PRN (01:41)
[2020-08-10] MEDS ORDERED: Furosemide 40 mg/4 ml IV VIAL IV SLOW PU ONE (01:41)
[2020-08-10] MEDS ORDERED: Nitro 2% OINT (Nitroglycerin) 1 INCH/PAK TOPICAL ONE (01:41)
[2020-08-10 02:09] LABS: C Reactive Protein 2.07 mg/L (<8.01)
[2020-08-10 02:48] LABS: Influenza A Molecular Negative (Negative); Influenza B Molecular Negative (Negative)
[2020-08-10 03:35] LABS: Troponin I 0.03 ng/mL (<0.03)
[2020-08-10 05:57] LABS: Hematocrit 28 % (42-52); Hemoglobin 9.5 g/dL (14.0-18.0); Mean Corpuscular HGB Conc 34 g/dL (31-36); Mean Corpuscular Hemoglobin 31 pg (27-31); Mean Corpuscular Volume 91 fL (80-94); Mean Platelet Volume 8.6 fL (7.4-10.4); Platelet Count 212 10^3/uL (150-450); Red Blood Count 3.04 10^6 /uL (4.18-5.48); Red Cell Distribution Width 17 % (10-15); White Blood Count 7.5 10^3/uL (3.5-10.8)
[2020-08-10 06:16] LABS: Anion Gap 5 mmol/L (2-11); Blood Urea Nitrogen 32 mg/dL (6-24); CO2 Carbon Dioxide 29 mmol/L (22-32); Calcium 8.9 mg/dL (8.6-10.3); Chloride 103 mmol/L (101-111); EGFR African American 81.2 (>60); EGFR Non-African American 67.1 (>60); Glucose 240 mg/dL (70-100); Potassium 3.9 mmol/L (3.5-5.0); Sodium 137 mmol/L (135-145)
[2020-08-10 06:27] LABS: Troponin I 0.03 ng/mL (<0.03)
[2020-08-10 06:39] LABS: ABS Lymphocytes 0.5 10^3/ul (1.0-4.8); ABS Monocytes 0.5 10^3/ul (0-0.8); ABS Neutrophils 6.5 10^3/ul (1.5-7.7); Eosinophil % 0.6 %; Lymphocyte % 6.3 %
[2020-08-10] MEDS ORDERED: Potassium Chlor 20 meq TAB.ER PO ONE (07:24)
[2020-08-10] MEDS ORDERED: Nitro Patch/OINT Remove PATCH TOPICAL ONE ×2 (08:00→14:00)
[2020-08-10] MEDS ORDERED: Nitro 2% OINT (Nitroglycerin) 1 INCH/PAK TOPICAL SCH (08:00)
[2020-08-10] MEDS: Mometasone/Formoter 100/5 MDI INH SCH ×2 (08:17→19:26)
[2020-08-10] MEDS: Aspirin EC 81 mg TAB.EC (enteric coated) PO SCH (08:31)
[2020-08-10] MEDS: Insulin GLARGINE 100 un/ml 10 ml VIAL SUBCUT SCH ×2 (08:33→21:41)
[2020-08-10] MEDS ORDERED: Insulin GLARGINE 100 un/ml 10 ml VIAL SUBCUT SCH (09:00)
[2020-08-10] MEDS ORDERED: Perflutren Lipid Microsphere 3 ML VIAL ONE (09:05)
[2020-08-10] MEDS ORDERED: Bumetanide IV 0.25 MG/ML 4 ml VIAL (1 mg) SLOW PUSH ONE (10:00)
[2020-08-10] MEDS: Isosorbide Mononit ER 30mg TAB PO SCH (11:13)
[2020-08-10 11:59] LABS: Troponin I 0.03 ng/mL (<0.03)
[2020-08-10] MEDS: Umeclidinium 62.5 MDI(NF) MDI INH SCH (12:34)
[2020-08-10 15:28] LABS: Calcium 8.9 mg/dL (8.6-10.3); EGFR African American 91.5 (>60); EGFR Non-African American 75.6 (>60); Magnesium 1.8 mg/dL (1.9-2.7); Phosphorus 2.7 mg/dL (2.5-5.0); Potassium 3.8 mmol/L (3.5-5.0)
[2020-08-10] MEDS ORDERED: COVID-19 VACCINE, AD26(JANSSEN)/PF 0.5 ML IM ONE (16:00)
[2020-08-10] MEDS ORDERED: Morphine 2 MG/ML SYRINGE ONE (18:17)
[2020-08-10] MEDS: Morphine 2 MG/ML SYRINGE IV PRN (18:19)
[2020-08-10] MEDS: Senna TAB 8.6 mg TAB PO SCH (21:42)
[2020-08-11 04:48] LABS: ABS Basophils 0.1 10^3/ul (0-0.2); ABS Eosinophils 0.1 10^3/ul (0-0.6); ABS Lymphocytes 1.2 10^3/ul (1.0-4.8); ABS Monocytes 0.8 10^3/ul (0-0.8); ABS Neutrophils 4.9 10^3/ul (1.5-7.7); Eosinophil % 0.9 %; Hematocrit 28 % (42-52); Hemoglobin 9.2 g/dL (14.0-18.0); Mean Corpuscular HGB Conc 33 g/dL (31-36); Mean Corpuscular Hemoglobin 31 pg (27-31); Mean Corpuscular Volume 94 fL (80-94); Mean Platelet Volume 8.6 fL (7.4-10.4); Nucleated Red Blood Cells % 0.1; Platelet Count 189 10^3/uL (150-450); Red Blood Count 3.01 10^6 /uL (4.18-5.48); Red Cell Distribution Width 17 % (10-15)
[2020-08-11 05:11] LABS: Calcium 8.5 mg/dL (8.6-10.3); EGFR African American 92.5 (>60); EGFR Non-African American 76.5 (>60); Magnesium 1.9 mg/dL (1.9-2.7); Phosphorus 3.2 mg/dL (2.5-5.0); Potassium 3.5 mmol/L (3.5-5.0)
[2020-08-11] MEDS: Mometasone/Formoter 100/5 MDI INH SCH ×2 (07:19→20:59)
[2020-08-11] MEDS ORDERED: Magnesium Sulfate IV 1GM/100ML 1 GM/100 ML BAG IV ONE (07:34)
[2020-08-11] MEDS ORDERED: Potassium Chlor 20 meq TAB.ER PO ONE ×2 (07:34→16:00)
[2020-08-11] MEDS ORDERED: Bumetanide IV 0.25 MG/ML 4 ml VIAL (1 mg) SLOW PUSH ONE ×2 (08:38→16:00)
[2020-08-11] MEDS: Isosorbide Mononit ER 30mg TAB PO SCH (08:43)
[2020-08-11] MEDS: Aspirin EC 81 mg TAB.EC (enteric coated) PO SCH (08:43)
[2020-08-11] MEDS: Insulin GLARGINE 100 un/ml 10 ml VIAL SUBCUT SCH ×2 (08:44→21:14)
[2020-08-11] MEDS: Umeclidinium 62.5 MDI(NF) MDI INH SCH (08:55)
[2020-08-11 15:56] LABS: Calcium 8.5 mg/dL (8.6-10.3); EGFR Non-African American 80.2 (>60); Potassium 3.9 mmol/L (3.5-5.0)
[2020-08-11] MEDS: Senna TAB 8.6 mg TAB PO SCH (19:59)
[2020-08-12] MEDS: Morphine 2 MG/ML SYRINGE IV PRN (01:13)
[2020-08-12 06:25] LABS: ABS Basophils 0.1 10^3/ul (0-0.2); ABS Lymphocytes 1.1 10^3/ul (1.0-4.8); ABS Monocytes 0.7 10^3/ul (0-0.8); ABS Neutrophils 4.1 10^3/ul (1.5-7.7); Eosinophil % 0.8 %; Hematocrit 28 % (42-52); Hemoglobin 9.5 g/dL (14.0-18.0); Lymphocyte % 18.5 %; Mean Corpuscular HGB Conc 34 g/dL (31-36); Mean Corpuscular Hemoglobin 31 pg (27-31); Mean Corpuscular Volume 92 fL (80-94); Mean Platelet Volume 8.6 fL (7.4-10.4); Platelet Count 195 10^3/uL (150-450); Red Blood Count 3.07 10^6 /uL (4.18-5.48); Red Cell Distribution Width 17 % (10-15)
[2020-08-12 06:45] LABS: Calcium 8.7 mg/dL (8.6-10.3); EGFR African American 93.6 (>60); EGFR Non-African American 77.4 (>60); Magnesium 1.9 mg/dL (1.9-2.7); Phosphorus 3.4 mg/dL (2.5-5.0); Potassium 3.9 mmol/L (3.5-5.0)
[2020-08-12] MEDS: Isosorbide Mononit ER 30mg TAB PO SCH (08:43)
[2020-08-12] MEDS: Aspirin EC 81 mg TAB.EC (enteric coated) PO SCH (08:43)
[2020-08-12] MEDS: Insulin GLARGINE 100 un/ml 10 ml VIAL SUBCUT SCH ×2 (08:48→21:19)
[2020-08-12] MEDS: Mometasone/Formoter 100/5 MDI INH SCH ×2 (09:39→19:54)
[2020-08-12] MEDS: Umeclidinium 62.5 MDI(NF) MDI INH SCH (10:10)
[2020-08-12] MEDS: Morphine ER 15 mg TAB ** extended release PO SCH ×2 (12:32→21:18)
[2020-08-12] MEDS: Albuterol HFA INHALER 8 gm MDI INH PRN (19:53)
[2020-08-12] MEDS: Senna TAB 8.6 mg TAB PO SCH (21:17)
[2020-08-13] MEDS: Mometasone/Formoter 100/5 MDI INH SCH ×2 (07:32→19:49)
[2020-08-13 08:49] LABS: ABS Basophils 0.1 10^3/ul (0-0.2); ABS Lymphocytes 1.2 10^3/ul (1.0-4.8); ABS Monocytes 0.8 10^3/ul (0-0.8); ABS Neutrophils 4.7 10^3/ul (1.5-7.7); Eosinophil % 0.6 %; Hematocrit 29 % (42-52); Hemoglobin 9.7 g/dL (14.0-18.0); Lymphocyte % 17.9 %; Mean Corpuscular HGB Conc 33 g/dL (31-36); Mean Corpuscular Hemoglobin 30 pg (27-31); Mean Corpuscular Volume 91 fL (80-94); Mean Platelet Volume 8.2 fL (7.4-10.4); Platelet Count 210 10^3/uL (150-450); Red Blood Count 3.19 10^6 /uL (4.18-5.48); Red Cell Distribution Width 17 % (10-15); White Blood Count 6.9 10^3/uL (3.5-10.8)
[2020-08-13 09:07] LABS: Calcium 8.8 mg/dL (8.6-10.3); Magnesium 1.8 mg/dL (1.9-2.7); Potassium 3.7 mmol/L (3.5-5.0)
[2020-08-13 09:13] LABS: EGFR African American 87.5 (>60); EGFR Non-African American 72.3 (>60)
[2020-08-13] MEDS: Isosorbide Mononit ER 30mg TAB PO SCH (09:16)
[2020-08-13] MEDS: Aspirin EC 81 mg TAB.EC (enteric coated) PO SCH (09:16)
[2020-08-13] MEDS: Morphine ER 15 mg TAB ** extended release PO SCH ×2 (09:19→21:29)
[2020-08-13] MEDS: Insulin GLARGINE 100 un/ml 10 ml VIAL SUBCUT SCH ×2 (09:22→21:31)
[2020-08-13] MEDS: Umeclidinium 62.5 MDI(NF) MDI INH SCH (09:25)
[2020-08-13] MEDS: Albuterol HFA INHALER 8 gm MDI INH PRN (19:48)
[2020-08-13] MEDS: Senna TAB 8.6 mg TAB PO SCH (21:28)
[2020-08-14] MEDS: Mometasone/Formoter 100/5 MDI INH SCH ×2 (07:35→19:46)
[2020-08-14] MEDS: Albuterol HFA INHALER 8 gm MDI INH PRN (07:36)
[2020-08-14] MEDS: Isosorbide Mononit ER 30mg TAB PO SCH (08:27)
[2020-08-14] MEDS: Aspirin EC 81 mg TAB.EC (enteric coated) PO SCH (08:27)
[2020-08-14] MEDS: Morphine ER 15 mg TAB ** extended release PO SCH ×2 (08:28→20:19)
[2020-08-14] MEDS: Insulin GLARGINE 100 un/ml 10 ml VIAL SUBCUT SCH ×2 (08:37→20:20)
[2020-08-14] MEDS: Umeclidinium 62.5 MDI(NF) MDI INH SCH (11:16)
[2020-08-14 13:15] LABS: C Reactive Protein 4.67 mg/L (<8.01); EGFR African American 77.2 (>60); EGFR Non-African American 63.8 (>60); Magnesium 1.8 mg/dL (1.9-2.7); Potassium 3.8 mmol/L (3.5-5.0)
[2020-08-14] MEDS: Senna TAB 8.6 mg TAB PO SCH (20:20)
[2020-08-15] MEDS: Mometasone/Formoter 100/5 MDI INH SCH ×2 (07:16→19:31)
[2020-08-15] MEDS: Aspirin EC 81 mg TAB.EC (enteric coated) PO SCH (10:44)
[2020-08-15] MEDS: Isosorbide Mononit ER 30mg TAB PO SCH (10:45)
[2020-08-15] MEDS: Morphine ER 15 mg TAB ** extended release PO SCH ×2 (10:46→22:13)
[2020-08-15] MEDS: Umeclidinium 62.5 MDI(NF) MDI INH SCH (10:54)
[2020-08-15] MEDS: Insulin GLARGINE 100 un/ml 10 ml VIAL SUBCUT SCH ×2 (11:04→22:14)
[2020-08-15 13:22] LABS: Urine Appearance Clear; Urine Bilirubin Negative (Negative); Urine Blood Negative (Negative); Urine Color Yellow; Urine Glucose 1+(50 mg/dL) (Negative); Urine Ketones Negative (Negative); Urine Nitrite Negative (Negative); Urine Protein 2+(100 mg/dL) (Negative); Urine Specific Gravity 1.011 (1.002-1.030); Urine Urobilinogen Negative (Negative)
[2020-08-15 13:26] LABS: Urine Bacteria Absent (Absent); Urine Red Blood Cell Absent (Absent); Urine White Blood Cell Absent (Absent)
[2020-08-15] MEDS: Senna TAB 8.6 mg TAB PO SCH (22:13)
[2020-08-16 06:19] LABS: ABS Basophils 0.1 10^3/ul (0-0.2); ABS Lymphocytes 0.9 10^3/ul (1.0-4.8); ABS Monocytes 0.8 10^3/ul (0-0.8); ABS Neutrophils 5.1 10^3/ul (1.5-7.7); Eosinophil % 0.3 %; Hematocrit 26 % (42-52); Hemoglobin 8.6 g/dL (14.0-18.0); Lymphocyte % 12.5 %; Mean Corpuscular HGB Conc 34 g/dL (31-36); Mean Corpuscular Hemoglobin 31 pg (27-31); Mean Corpuscular Volume 92 fL (80-94); Platelet Count 163 10^3/uL (150-450); Red Blood Count 2.81 10^6 /uL (4.18-5.48); Red Cell Distribution Width 17 % (10-15); White Blood Count 6.9 10^3/uL (3.5-10.8)
[2020-08-16 06:37] LABS: Calcium 8.8 mg/dL (8.6-10.3); EGFR African American 47.3 (>60); EGFR Non-African American 39.1 (>60); Potassium 3.9 mmol/L (3.5-5.0)
[2020-08-16] MEDS: Mometasone/Formoter 100/5 MDI INH SCH ×2 (07:25→19:30)
[2020-08-16] MEDS: Insulin GLARGINE 100 un/ml 10 ml VIAL SUBCUT SCH ×2 (08:14→21:08)
[2020-08-16] MEDS: Aspirin EC 81 mg TAB.EC (enteric coated) PO SCH (08:15)
[2020-08-16] MEDS: Isosorbide Mononit ER 30mg TAB PO SCH (08:15)
[2020-08-16] MEDS: Morphine ER 15 mg TAB ** extended release PO SCH ×2 (08:16→21:05)
[2020-08-16] MEDS: Umeclidinium 62.5 MDI(NF) MDI INH SCH (08:40)
[2020-08-16] MEDS: Albuterol HFA INHALER 8 gm MDI INH PRN (19:30)
[2020-08-16] MEDS: Senna TAB 8.6 mg TAB PO SCH (21:05)
[2020-08-17 05:58] LABS: ABS Basophils 0.1 10^3/ul (0-0.2); ABS Lymphocytes 0.9 10^3/ul (1.0-4.8); ABS Monocytes 0.9 10^3/ul (0-0.8); ABS Neutrophils 4.4 10^3/ul (1.5-7.7); Eosinophil % 0.3 %; Hematocrit 25 % (42-52); Hemoglobin 8.4 g/dL (14.0-18.0); Lymphocyte % 13.6 %; Mean Corpuscular HGB Conc 33 g/dL (31-36); Mean Corpuscular Hemoglobin 30 pg (27-31); Mean Corpuscular Volume 92 fL (80-94); Mean Platelet Volume 8.8 fL (7.4-10.4); Platelet Count 163 10^3/uL (150-450); Red Blood Count 2.77 10^6 /uL (4.18-5.48); Red Cell Distribution Width 17 % (10-15); White Blood Count 6.3 10^3/uL (3.5-10.8)
[2020-08-17 06:17] LABS: Calcium 8.7 mg/dL (8.6-10.3); EGFR Non-African American 47.9 (>60); Magnesium 2.1 mg/dL (1.9-2.7); Potassium 4.2 mmol/L (3.5-5.0)
[2020-08-17] MEDS ORDERED: Senna TAB 8.6 mg TAB PO PRN (07:58)
[2020-08-17] MEDS ORDERED: Magnesium Hydroxide LIQ 30 ML UDC PO PRN (07:58)
[2020-08-17] MEDS: Mometasone/Formoter 100/5 MDI INH SCH ×2 (08:34→19:57)
[2020-08-17] MEDS: Albuterol HFA INHALER 8 gm MDI INH PRN ×2 (08:34→22:04)
[2020-08-17] MEDS: Insulin GLARGINE 100 un/ml 10 ml VIAL SUBCUT SCH ×2 (08:59→20:45)
[2020-08-17] MEDS: Morphine ER 15 mg TAB ** extended release PO SCH ×2 (09:00→20:44)
[2020-08-17] MEDS: Aspirin EC 81 mg TAB.EC (enteric coated) PO SCH (09:00)
[2020-08-17] MEDS: Isosorbide Mononit ER 30mg TAB PO SCH (09:00)
[2020-08-17] MEDS: Umeclidinium 62.5 MDI(NF) MDI INH SCH (09:03)
[2020-08-17] MEDS: Senna TAB 8.6 mg TAB PO SCH (20:45)
[2020-08-18] MEDS ORDERED: Furosemide 20 mg/2 ml IV VIAL IV ONE (00:33)
[2020-08-18 06:08] LABS: ABS Lymphocytes 0.7 10^3/ul (1.0-4.8); ABS Monocytes 0.9 10^3/ul (0-0.8); ABS Neutrophils 4.8 10^3/ul (1.5-7.7); Eosinophil % 0.4 %; Hematocrit 26 % (42-52); Hemoglobin 8.6 g/dL (14.0-18.0); Lymphocyte % 11.4 %; Mean Corpuscular HGB Conc 33 g/dL (31-36); Mean Corpuscular Hemoglobin 31 pg (27-31); Mean Corpuscular Volume 93 fL (80-94); Mean Platelet Volume 9.3 fL (7.4-10.4); Platelet Count 161 10^3/uL (150-450); Red Blood Count 2.79 10^6 /uL (4.18-5.48); Red Cell Distribution Width 17 % (10-15); White Blood Count 6.5 10^3/uL (3.5-10.8)
[2020-08-18 07:04] LABS: EGFR African American 70.2 (>60); Potassium 4.3 mmol/L (3.5-5.0)
[2020-08-18] MEDS: Morphine ER 15 mg TAB ** extended release PO SCH ×2 (08:52→21:15)
[2020-08-18] MEDS: Isosorbide Mononit ER 30mg TAB PO SCH (08:53)
[2020-08-18] MEDS: Aspirin EC 81 mg TAB.EC (enteric coated) PO SCH (08:53)
[2020-08-18] MEDS: Insulin GLARGINE 100 un/ml 10 ml VIAL SUBCUT SCH ×2 (08:54→21:15)
[2020-08-18] MEDS: Mometasone/Formoter 100/5 MDI INH SCH ×2 (10:26→21:07)
[2020-08-18] MEDS: Umeclidinium 62.5 MDI(NF) MDI INH SCH (10:39)
[2020-08-18] MEDS: Senna TAB 8.6 mg TAB PO SCH (21:19)
[2020-08-19 05:43] LABS: ABS Lymphocytes 0.8 10^3/ul (1.0-4.8); ABS Monocytes 0.7 10^3/ul (0-0.8); ABS Neutrophils 3.3 10^3/ul (1.5-7.7); Eosinophil % 0.7 %; Hematocrit 25 % (42-52); Hemoglobin 8.3 g/dL (14.0-18.0); Lymphocyte % 16.4 %; Mean Corpuscular HGB Conc 34 g/dL (31-36); Mean Corpuscular Hemoglobin 31 pg (27-31); Mean Corpuscular Volume 92 fL (80-94); Mean Platelet Volume 9.6 fL (7.4-10.4); Platelet Count 144 10^3/uL (150-450); Red Blood Count 2.69 10^6 /uL (4.18-5.48); Red Cell Distribution Width 17 % (10-15); White Blood Count 4.9 10^3/uL (3.5-10.8)
[2020-08-19 06:01] LABS: Calcium 8.7 mg/dL (8.6-10.3); EGFR African American 63.8 (>60); EGFR Non-African American 52.7 (>60); Potassium 4.1 mmol/L (3.5-5.0)
[2020-08-19] MEDS: Mometasone/Formoter 100/5 MDI INH SCH ×2 (07:40→20:05)
[2020-08-19] MEDS: Morphine ER 15 mg TAB ** extended release PO SCH ×2 (08:27→21:10)
[2020-08-19] MEDS: Aspirin EC 81 mg TAB.EC (enteric coated) PO SCH (08:28)
[2020-08-19] MEDS: Insulin GLARGINE 100 un/ml 10 ml VIAL SUBCUT SCH ×2 (08:28→21:12)
[2020-08-19] MEDS: Isosorbide Mononit ER 30mg TAB PO SCH (08:28)
[2020-08-19] MEDS: Umeclidinium 62.5 MDI(NF) MDI INH SCH (08:29)
[2020-08-19] MEDS: Senna TAB 8.6 mg TAB PO SCH (21:10)
[2020-08-20 06:08] LABS: ABS Lymphocytes 0.8 10^3/ul (1.0-4.8); ABS Monocytes 0.7 10^3/ul (0-0.8); ABS Neutrophils 4.2 10^3/ul (1.5-7.7); Eosinophil % 0.6 %; Hematocrit 25 % (42-52); Hemoglobin 8.5 g/dL (14.0-18.0); Mean Corpuscular HGB Conc 33 g/dL (31-36); Mean Corpuscular Hemoglobin 31 pg (27-31); Mean Corpuscular Volume 93 fL (80-94); Mean Platelet Volume 9.2 fL (7.4-10.4); Nucleated Red Blood Cells % 0.1; Platelet Count 143 10^3/uL (150-450); Red Blood Count 2.75 10^6 /uL (4.18-5.48); Red Cell Distribution Width 17 % (10-15); White Blood Count 5.8 10^3/uL (3.5-10.8)
[2020-08-20 06:28] LABS: Calcium 8.9 mg/dL (8.6-10.3); EGFR African American 58.4 (>60); EGFR Non-African American 48.3 (>60)
[2020-08-20] MEDS: Mometasone/Formoter 100/5 MDI INH SCH ×2 (08:41→19:10)
[2020-08-20] MEDS: Morphine ER 15 mg TAB ** extended release PO SCH ×2 (09:11→21:34)
[2020-08-20] MEDS: Isosorbide Mononit ER 30mg TAB PO SCH (09:12)
[2020-08-20] MEDS: Aspirin EC 81 mg TAB.EC (enteric coated) PO SCH (09:12)
[2020-08-20] MEDS: Insulin GLARGINE 100 un/ml 10 ml VIAL SUBCUT SCH ×2 (09:12→21:36)
[2020-08-20] MEDS: Umeclidinium 62.5 MDI(NF) MDI INH SCH (10:07)
[2020-08-20] MEDS: Senna TAB 8.6 mg TAB PO SCH (21:34)
[2020-08-21 05:57] LABS: ABS Lymphocytes 0.8 10^3/ul (1.0-4.8); ABS Monocytes 0.7 10^3/ul (0-0.8); Eosinophil % 0.8 %; Hematocrit 26 % (42-52); Hemoglobin 8.5 g/dL (14.0-18.0); Lymphocyte % 14.9 %; Mean Corpuscular HGB Conc 34 g/dL (31-36); Mean Corpuscular Hemoglobin 31 pg (27-31); Mean Corpuscular Volume 92 fL (80-94); Mean Platelet Volume 9.1 fL (7.4-10.4); Platelet Count 140 10^3/uL (150-450); Red Blood Count 2.78 10^6 /uL (4.18-5.48); Red Cell Distribution Width 17 % (10-15); White Blood Count 5.6 10^3/uL (3.5-10.8)
[2020-08-21 06:12] LABS: Calcium 9.2 mg/dL (8.6-10.3); EGFR African American 69.6 (>60); EGFR Non-African American 57.5 (>60); Magnesium 1.8 mg/dL (1.9-2.7); Potassium 3.8 mmol/L (3.5-5.0)
[2020-08-21] MEDS: Mometasone/Formoter 100/5 MDI INH SCH ×2 (07:31→19:46)
[2020-08-21] MEDS: Insulin GLARGINE 100 un/ml 10 ml VIAL SUBCUT SCH ×2 (08:13→20:19)
[2020-08-21] MEDS: Isosorbide Mononit ER 30mg TAB PO SCH (08:17)
[2020-08-21] MEDS: Aspirin EC 81 mg TAB.EC (enteric coated) PO SCH (08:17)
[2020-08-21] MEDS: Morphine ER 15 mg TAB ** extended release PO SCH ×2 (08:18→20:17)
[2020-08-21] MEDS ORDERED: Potassium Chlor 20 meq TAB.ER PO ONE (10:27)
[2020-08-21] MEDS: Umeclidinium 62.5 MDI(NF) MDI INH SCH (11:28)
[2020-08-21] MEDS: Senna TAB 8.6 mg TAB PO SCH (20:16)
[2020-08-22] MEDS: Mometasone/Formoter 100/5 MDI INH SCH ×2 (07:31→19:22)
[2020-08-22 08:22] LABS: Calcium 9.5 mg/dL (8.6-10.3); EGFR African American 68.4 (>60); EGFR Non-African American 56.5 (>60); Magnesium 1.7 mg/dL (1.9-2.7); Potassium 4.2 mmol/L (3.5-5.0)
[2020-08-22] MEDS: Insulin GLARGINE 100 un/ml 10 ml VIAL SUBCUT SCH ×2 (09:17→22:40)
[2020-08-22] MEDS: Aspirin EC 81 mg TAB.EC (enteric coated) PO SCH (09:19)
[2020-08-22] MEDS: Isosorbide Mononit ER 30mg TAB PO SCH (09:23)
[2020-08-22] MEDS: Morphine ER 15 mg TAB ** extended release PO SCH ×3 (09:23→22:36)
[2020-08-22] MEDS: Umeclidinium 62.5 MDI(NF) MDI INH SCH (09:25)
[2020-08-22] MEDS ORDERED: Magnesium Sulfate 2 gm BAG 2 GM/50 ML BAG IVPB ONE (10:46)
[2020-08-22] MEDS: Senna TAB 8.6 mg TAB PO SCH (22:38)
[2020-08-23 06:26] LABS: ABS Eosinophils 0.1 10^3/ul (0-0.6); ABS Lymphocytes 0.9 10^3/ul (1.0-4.8); ABS Monocytes 0.6 10^3/ul (0-0.8); ABS Neutrophils 4.3 10^3/ul (1.5-7.7); Eosinophil % 1.1 %; Hematocrit 28 % (42-52); Hemoglobin 9.2 g/dL (14.0-18.0); Lymphocyte % 15.3 %; Mean Corpuscular HGB Conc 34 g/dL (31-36); Mean Corpuscular Hemoglobin 31 pg (27-31); Mean Corpuscular Volume 91 fL (80-94); Platelet Count 145 10^3/uL (150-450); Red Blood Count 3.01 10^6 /uL (4.18-5.48); Red Cell Distribution Width 17 % (10-15); White Blood Count 5.9 10^3/uL (3.5-10.8)
[2020-08-23 06:41] LABS: Albumin 3.4 g/dL (3.2-5.2); Albumin/Globulin Ratio 1.1 (1-3); Calcium 9.1 mg/dL (8.6-10.3); EGFR Non-African American 47.9 (>60); Globulin 3.1 g/dL (2-4); Potassium 3.8 mmol/L (3.5-5.0); Total Bilirubin 0.9 mg/dL (0.2-1.0); Total Protein 6.5 g/dL (6.4-8.9)
[2020-08-23] MEDS: Morphine ER 15 mg TAB ** extended release PO SCH ×3 (08:08→23:00)
[2020-08-23] MEDS: Isosorbide Mononit ER 30mg TAB PO SCH (08:11)
[2020-08-23] MEDS: Aspirin EC 81 mg TAB.EC (enteric coated) PO SCH (08:12)
[2020-08-23] MEDS: Umeclidinium 62.5 MDI(NF) MDI INH SCH (08:14)
[2020-08-23] MEDS: Insulin GLARGINE 100 un/ml 10 ml VIAL SUBCUT SCH ×2 (08:33→20:23)
[2020-08-23] MEDS: Mometasone/Formoter 100/5 MDI INH SCH ×2 (09:51→19:59)
[2020-08-23] MEDS: Senna TAB 8.6 mg TAB PO SCH (20:22)
[2020-08-24] MEDS: Morphine ER 15 mg TAB ** extended release PO SCH (07:41)
[2020-08-24 08:21] LABS: Calcium 9.3 mg/dL (8.6-10.3); EGFR African American 57.1 (>60); EGFR Non-African American 47.2 (>60); Magnesium 1.9 mg/dL (1.9-2.7)
[2020-08-24] MEDS: Mometasone/Formoter 100/5 MDI INH SCH (08:33)
[2020-08-24] MEDS: Isosorbide Mononit ER 30mg TAB PO SCH (08:58)
[2020-08-24] MEDS: Aspirin EC 81 mg TAB.EC (enteric coated) PO SCH (08:59)
[2020-08-24] MEDS: Insulin GLARGINE 100 un/ml 10 ml VIAL SUBCUT SCH (11:05)
[2020-08-24] MEDS: Umeclidinium 62.5 MDI(NF) MDI INH SCH (11:15)
[2020-08-24 13:31] VITALS: BP 126/50
== END 2020-08-24 14:01 | disposition home or self-care (01) ==
LOC: ED 21:33 → ICU 08-10 01:37 → EDSTATUS 08-10 02:49 → MEDTELE 08-11 18:30
PROVIDERS: ADMIT Internal Medicine; ATTEND Internal Medicine

== ENCOUNTER 2020-08-27 21:01 | Inpatient (IN) ==
[2020-08-27] MEDS ORDERED: NS 0.9% 1000 ml BAG 1,000 ML IV ONE (21:07)
[2020-08-27 21:42] LABS: ABS Basophils 0.1 10^3/ul (0-0.2); ABS Eosinophils 0.2 10^3/ul (0-0.6); ABS Lymphocytes 0.9 10^3/ul (1.0-4.8); ABS Monocytes 0.8 10^3/ul (0-0.8); ABS Neutrophils 11.2 10^3/ul (1.5-7.7); Eosinophil % 1.5 %; Hematocrit 32 % (42-52); Hemoglobin 10.1 g/dL (14.0-18.0); Mean Corpuscular HGB Conc 32 g/dL (31-36); Mean Corpuscular Hemoglobin 30 pg (27-31); Mean Corpuscular Volume 93 fL (80-94); Mean Platelet Volume 9.5 fL (7.4-10.4); Platelet Count 242 10^3/uL (150-450); Red Blood Count 3.39 10^6 /uL (4.18-5.48); Red Cell Distribution Width 17 % (10-15); White Blood Count 13.2 10^3/uL (3.5-10.8)
[2020-08-27] MEDS ORDERED: Cefepime 1 GM in Dextrose 1 GM/50 ML BAG IV ONE (21:57)
[2020-08-27] MEDS ORDERED: Vancomycin 1,000 MG in NS 0.9% 250 ml 250 ML IVPB ONE (21:57)
[2020-08-27 22:00] LABS: ALT 15 U/L (7-52); AST 15 U/L (13-39); Albumin 3.5 g/dL (3.2-5.2); Albumin/Globulin Ratio 1.1 (1-3); Alkaline Phosphatase 61 U/L (35-149); Anion Gap 9 mmol/L (2-11); Blood Urea Nitrogen 26 mg/dL (6-24); CO2 Carbon Dioxide 25 mmol/L (22-32); Calcium 8.7 mg/dL (8.6-10.3); Chloride 101 mmol/L (101-111); Creatine Kinase 39 U/L (10-223); EGFR African American 52.7 (>60); EGFR Non-African American 43.5 (>60); Globulin 3.3 g/dL (2-4); Glucose 344 mg/dL (70-100); Sodium 135 mmol/L (135-145); Total Protein 6.8 g/dL (6.4-8.9)
[2020-08-27 22:04] LABS: Activated Partial Thrombo Time 29.6 seconds (26.0-38.0); CKMB ng/mL 1.9 ng/mL (0.6-6.3); INR 1.46 (0.82-1.09)
[2020-08-27 22:05] LABS: Troponin I 0.03 ng/mL (<0.03)
[2020-08-27] MEDS ORDERED: Furosemide 40 mg/4 ml IV VIAL IV ONE (23:57)
[2020-08-28] MEDS ORDERED: Magnesium Hydroxide LIQ 30 ML UDC PO PRN (01:22)
[2020-08-28 01:26] LABS: Influenza A Molecular Negative (Negative); Influenza B Molecular Negative (Negative)
[2020-08-28] MEDS ORDERED: Albuterol HFA INHALER 8 gm MDI INH PRN (02:12)
[2020-08-28 02:18] LABS: Urine Appearance Clear; Urine Bilirubin Negative (Negative); Urine Blood Negative (Negative); Urine Color Yellow; Urine Glucose 2+(150 mg/dL) (Negative); Urine Ketones Negative (Negative); Urine Nitrite Negative (Negative); Urine Protein 2+(100 mg/dL) (Negative); Urine Specific Gravity 1.008 (1.002-1.030); Urine Urobilinogen Negative (Negative)
[2020-08-28 02:30] LABS: Urine Bacteria 1+ (Absent); Urine Red Blood Cell Trace(0-2/hpf) (Absent); Urine Squamous Epithelial Cell Present (Absent); Urine White Blood Cell 1+(6-10/hpf) (Absent)
[2020-08-28] MEDS ORDERED: Dextrose 50% Syringe 50 ml 25 GM/50 ML SYRINGE IV PUSH PRN (04:27)
[2020-08-28 05:15] LABS: ABS Lymphocytes 0.4 10^3/ul (1.0-4.8); ABS Monocytes 0.5 10^3/ul (0-0.8); ABS Neutrophils 7.2 10^3/ul (1.5-7.7); Eosinophil % 0.3 %; Hematocrit 29 % (42-52); Hemoglobin 9.7 g/dL (14.0-18.0); Lymphocyte % 5.3 %; Mean Corpuscular HGB Conc 34 g/dL (31-36); Mean Corpuscular Hemoglobin 31 pg (27-31); Mean Corpuscular Volume 92 fL (80-94); Mean Platelet Volume 9.7 fL (7.4-10.4); Platelet Count 152 10^3/uL (150-450); Red Blood Count 3.13 10^6 /uL (4.18-5.48); Red Cell Distribution Width 17 % (10-15); White Blood Count 8.2 10^3/uL (3.5-10.8)
[2020-08-28 05:38] LABS: Anion Gap 5 mmol/L (2-11); Blood Urea Nitrogen 28 mg/dL (6-24); CO2 Carbon Dioxide 30 mmol/L (22-32); Calcium 8.7 mg/dL (8.6-10.3); Chloride 103 mmol/L (101-111); EGFR African American 54.6 (>60); EGFR Non-African American 45.1 (>60); Glucose 295 mg/dL (70-100); Magnesium 1.7 mg/dL (1.9-2.7); Potassium 3.7 mmol/L (3.5-5.0); Sodium 138 mmol/L (135-145)
[2020-08-28 05:46] LABS: Troponin I 0.66 ng/mL (<0.03)
[2020-08-28] MEDS ORDERED: Potassium Chlor 20 meq TAB.ER PO ONE (05:50)
[2020-08-28] MEDS ORDERED: Magnesium Sulfate IV 1GM/100ML 1 GM/100 ML BAG IV ONE (06:12)
[2020-08-28] MEDS ORDERED: Perflutren Lipid Microsphere 3 ML VIAL ONE (07:35)
[2020-08-28] MEDS ORDERED: Furosemide 40 mg/4 ml IV VIAL IV SLOW PU ONE (08:48)
[2020-08-28] MEDS ORDERED: Magnesium Sulf 4 GM/100 ML IV 4,000 MG/100 ML BAG IVPB ONE (08:53)
[2020-08-28] MEDS: Aspirin EC 81 mg TAB.EC (enteric coated) PO SCH (08:56)
[2020-08-28] MEDS ORDERED: Furosemide 40 mg/4 ml IV VIAL IV SLOW PU SCH (09:00)
[2020-08-28] MEDS ORDERED: Furosemide 100 mg/10 ml IV 100 MG in NS 0.9% 100 ml BAG 90 ML IV SCH ×3 (09:00→10:35)
[2020-08-28] MEDS: Fluticasone NASAL SPRAY 50MCG 16 gm SPRAY BTL INTRANASAL SCH (09:00)
[2020-08-28] MEDS: Insulin GLARGINE 100 un/ml 10 ml VIAL SUBCUT SCH ×2 (09:18→20:36)
[2020-08-28 09:52] LABS: Troponin I 0.86 ng/mL (<0.03)
[2020-08-28] MEDS: Albuterol/Ipratropium NEB.SOL (2.5/0.5 MG) 3 ML NEB.SOLN INH SCH ×4 (11:13→19:40)
[2020-08-28] MEDS: NF: Umeclidinium 62.5 MDI(NF) MDI INH SCH (11:14)
[2020-08-28] MEDS: Mometasone/Formoter 100/5 MDI INH SCH ×2 (11:14→19:42)
[2020-08-28 14:57] LABS: % Iron Saturation 13 % (15-55); Iron 42 ug/dL (50-212); Total Iron Binding Capacity 314 mcg/dL (250-450); Transferrin 224 mg/dL (203-362); Unsaturated Iron Binding < 299 ug/dL
[2020-08-28 14:58] LABS: Anion Gap 5 mmol/L (2-11); Blood Urea Nitrogen 28 mg/dL (6-24); CO2 Carbon Dioxide 30 mmol/L (22-32); Chloride 101 mmol/L (101-111); EGFR African American 59.8 (>60); EGFR Non-African American 49.4 (>60); Glucose 306 mg/dL (70-100); Magnesium 2.3 mg/dL (1.9-2.7); Potassium 3.5 mmol/L (3.5-5.0); Sodium 136 mmol/L (135-145)
[2020-08-28 15:16] LABS: Troponin I 0.74 ng/mL (<0.03)
[2020-08-28 15:17] LABS: Ferritin 68.9 ng/mL (24-336)
[2020-08-28] MEDS: Isosorbide Mononit ER 30mg TAB PO SCH (15:19)
[2020-08-28 15:24] LABS: Folate > 20.00 ng/mL (5.90-24.80)
[2020-08-28 15:25] LABS: Vitamin B12 328 pg/mL (180-914)
[2020-08-28] MEDS ORDERED: Potassium Chloride LIQUID 20 MEQ/15 ML LIQUID PO ONE (17:08)
[2020-08-28 18:06] LABS: Calcium 8.9 mg/dL (8.6-10.3); EGFR African American 58.9 (>60); EGFR Non-African American 48.6 (>60); Magnesium 2.2 mg/dL (1.9-2.7); Phosphorus 2.5 mg/dL (2.5-5.0); Potassium 3.4 mmol/L (3.5-5.0)
[2020-08-28] MEDS: Senna TAB 8.6 mg TAB PO SCH (20:36)
[2020-08-29 04:50] LABS: Hematocrit 25 % (42-52); Hemoglobin 8.3 g/dL (14.0-18.0); Mean Corpuscular HGB Conc 33 g/dL (31-36); Mean Corpuscular Hemoglobin 30 pg (27-31); Mean Corpuscular Volume 91 fL (80-94); Mean Platelet Volume 9.1 fL (7.4-10.4); Platelet Count 154 10^3/uL (150-450); Red Blood Count 2.75 10^6 /uL (4.18-5.48); Red Cell Distribution Width 17 % (10-15); White Blood Count 6.4 10^3/uL (3.5-10.8)
[2020-08-29 05:06] LABS: Calcium 8.6 mg/dL (8.6-10.3); EGFR African American 60.3 (>60); EGFR Non-African American 49.8 (>60); Magnesium 1.9 mg/dL (1.9-2.7); Phosphorus 2.8 mg/dL (2.5-5.0); Potassium 3.5 mmol/L (3.5-5.0)
[2020-08-29] MEDS: Mometasone/Formoter 100/5 MDI INH SCH ×2 (07:15→19:35)
[2020-08-29] MEDS: Albuterol/Ipratropium NEB.SOL (2.5/0.5 MG) 3 ML NEB.SOLN INH SCH ×2 (07:15→19:34)
[2020-08-29] MEDS: NF: Umeclidinium 62.5 MDI(NF) MDI INH SCH (08:13)
[2020-08-29] MEDS: Isosorbide Mononit ER 30mg TAB PO SCH (08:26)
[2020-08-29] MEDS: Aspirin EC 81 mg TAB.EC (enteric coated) PO SCH (08:27)
[2020-08-29] MEDS: Fluticasone NASAL SPRAY 50MCG 16 gm SPRAY BTL INTRANASAL SCH (08:29)
[2020-08-29] MEDS: Insulin GLARGINE 100 un/ml 10 ml VIAL SUBCUT SCH ×2 (08:44→20:44)
[2020-08-29] MEDS ORDERED: Furosemide 20 mg/2 ml IV VIAL IV SLOW PU ONE (09:48)
[2020-08-29] MEDS ORDERED: Albuterol/Ipratropium NEB.SOL (2.5/0.5 MG) 3 ML NEB.SOLN INH SCH (11:00)
[2020-08-29] MEDS: Senna TAB 8.6 mg TAB PO SCH (20:47)
[2020-08-30] MEDS: Albuterol/Ipratropium NEB.SOL (2.5/0.5 MG) 3 ML NEB.SOLN INH SCH ×4 (00:56→21:03)
[2020-08-30] MEDS: Mometasone/Formoter 100/5 MDI INH SCH ×2 (07:05→21:04)
[2020-08-30] MEDS: NF: Umeclidinium 62.5 MDI(NF) MDI INH SCH (07:06)
[2020-08-30] MEDS: Insulin GLARGINE 100 un/ml 10 ml VIAL SUBCUT SCH ×2 (09:34→20:52)
[2020-08-30] MEDS: Isosorbide Mononit ER 30mg TAB PO SCH (09:34)
[2020-08-30] MEDS: Fluticasone NASAL SPRAY 50MCG 16 gm SPRAY BTL INTRANASAL SCH (09:57)
[2020-08-30] MEDS: Aspirin EC 81 mg TAB.EC (enteric coated) PO SCH (13:27)
[2020-08-30] MEDS: Senna TAB 8.6 mg TAB PO SCH (20:49)
[2020-08-31] MEDS: Albuterol/Ipratropium NEB.SOL (2.5/0.5 MG) 3 ML NEB.SOLN INH SCH ×4 (00:14→19:21)
[2020-08-31 06:35] LABS: ABS Basophils 0.1 10^3/ul (0-0.2); ABS Eosinophils 0.2 10^3/ul (0-0.6); ABS Lymphocytes 0.9 10^3/ul (1.0-4.8); ABS Monocytes 0.5 10^3/ul (0-0.8); ABS Neutrophils 4.2 10^3/ul (1.5-7.7); Eosinophil % 2.7 %; Hematocrit 26 % (42-52); Hemoglobin 9.1 g/dL (14.0-18.0); Lymphocyte % 14.8 %; Mean Corpuscular HGB Conc 35 g/dL (31-36); Mean Corpuscular Hemoglobin 31 pg (27-31); Mean Corpuscular Volume 90 fL (80-94); Mean Platelet Volume 9.3 fL (7.4-10.4); Nucleated Red Blood Cells % 0.1; Platelet Count 162 10^3/uL (150-450); Red Blood Count 2.91 10^6 /uL (4.18-5.48); Red Cell Distribution Width 17 % (10-15); White Blood Count 5.9 10^3/uL (3.5-10.8)
[2020-08-31 07:01] LABS: Calcium 9.2 mg/dL (8.6-10.3); EGFR African American 81.2 (>60); EGFR Non-African American 67.1 (>60); Potassium 3.4 mmol/L (3.5-5.0)
[2020-08-31] MEDS ORDERED: Aminophylline 25 MG/ML VIAL ONE (07:28)
[2020-08-31] MEDS ORDERED: Regadenoson 0.4 MG/5 ML SYRINGE ONE (07:28)
[2020-08-31] MEDS ORDERED: Potassium Chlor 20 meq TAB.ER PO ONE (08:27)
[2020-08-31] MEDS: Mometasone/Formoter 100/5 MDI INH SCH ×2 (10:17→19:21)
[2020-08-31] MEDS: Isosorbide Mononit ER 30mg TAB PO SCH (10:25)
[2020-08-31] MEDS: Aspirin EC 81 mg TAB.EC (enteric coated) PO SCH (10:25)
[2020-08-31] MEDS: Fluticasone NASAL SPRAY 50MCG 16 gm SPRAY BTL INTRANASAL SCH (10:26)
[2020-08-31] MEDS: Insulin GLARGINE 100 un/ml 10 ml VIAL SUBCUT SCH ×2 (10:28→19:56)
[2020-08-31] MEDS: Senna TAB 8.6 mg TAB PO SCH (19:55)
[2020-09-01] MEDS: Albuterol/Ipratropium NEB.SOL (2.5/0.5 MG) 3 ML NEB.SOLN INH SCH ×4 (01:40→19:39)
[2020-09-01] MEDS: Mometasone/Formoter 100/5 MDI INH SCH ×2 (07:14→19:40)
[2020-09-01] MEDS: Isosorbide Mononit ER 30mg TAB PO SCH (08:23)
[2020-09-01] MEDS: Aspirin EC 81 mg TAB.EC (enteric coated) PO SCH (08:23)
[2020-09-01] MEDS: Fluticasone NASAL SPRAY 50MCG 16 gm SPRAY BTL INTRANASAL SCH (08:25)
[2020-09-01] MEDS: Insulin GLARGINE 100 un/ml 10 ml VIAL SUBCUT SCH ×2 (08:29→20:59)
[2020-09-01 09:26] LABS: ABS Eosinophils 0.2 10^3/ul (0-0.6); ABS Lymphocytes 0.8 10^3/ul (1.0-4.8); ABS Monocytes 0.6 10^3/ul (0-0.8); ABS Neutrophils 5.1 10^3/ul (1.5-7.7); Eosinophil % 2.5 %; Hematocrit 28 % (42-52); Hemoglobin 9.4 g/dL (14.0-18.0); Lymphocyte % 12.4 %; Mean Corpuscular HGB Conc 34 g/dL (31-36); Mean Corpuscular Hemoglobin 31 pg (27-31); Mean Corpuscular Volume 90 fL (80-94); Mean Platelet Volume 9.3 fL (7.4-10.4); Platelet Count 178 10^3/uL (150-450); Red Blood Count 3.08 10^6 /uL (4.18-5.48); Red Cell Distribution Width 17 % (10-15); White Blood Count 6.8 10^3/uL (3.5-10.8)
[2020-09-01 09:52] LABS: Calcium 9.2 mg/dL (8.6-10.3); EGFR African American 78.8 (>60); EGFR Non-African American 65.1 (>60); Magnesium 1.5 mg/dL (1.9-2.7); Potassium 3.5 mmol/L (3.5-5.0)
[2020-09-01] MEDS ORDERED: Magnesium Sulf 4 GM/100 ML IV 4,000 MG/100 ML BAG IVPB ONE (11:55)
[2020-09-01] MEDS: Senna TAB 8.6 mg TAB PO SCH (20:58)
[2020-09-02] MEDS: Albuterol/Ipratropium NEB.SOL (2.5/0.5 MG) 3 ML NEB.SOLN INH SCH ×4 (00:15→19:51)
[2020-09-02] MEDS: Mometasone/Formoter 100/5 MDI INH SCH ×3 (06:51→19:50)
[2020-09-02 07:14] LABS: Calcium 9.1 mg/dL (8.6-10.3); EGFR African American 78.8 (>60); EGFR Non-African American 65.1 (>60); Magnesium 1.7 mg/dL (1.9-2.7); Potassium 3.7 mmol/L (3.5-5.0)
[2020-09-02] MEDS: Insulin GLARGINE 100 un/ml 10 ml VIAL SUBCUT SCH ×2 (08:29→20:59)
[2020-09-02] MEDS: Fluticasone NASAL SPRAY 50MCG 16 gm SPRAY BTL INTRANASAL SCH (08:30)
[2020-09-02] MEDS: Aspirin EC 81 mg TAB.EC (enteric coated) PO SCH (08:32)
[2020-09-02] MEDS: Isosorbide Mononit ER 30mg TAB PO SCH (08:32)
[2020-09-02] MEDS ORDERED: Magnesium Sulfate 2 gm BAG 2 GM/50 ML BAG IVPB ONE (08:44)
[2020-09-02] MEDS ORDERED: Potassium Chlor 20 meq TAB.ER PO ONE (16:36)
[2020-09-02] MEDS: Senna TAB 8.6 mg TAB PO SCH (20:58)
[2020-09-03] MEDS: Albuterol/Ipratropium NEB.SOL (2.5/0.5 MG) 3 ML NEB.SOLN INH SCH ×4 (00:16→19:36)
[2020-09-03 06:35] LABS: ABS Basophils 0.1 10^3/ul (0-0.2); ABS Eosinophils 0.2 10^3/ul (0-0.6); ABS Lymphocytes 0.9 10^3/ul (1.0-4.8); ABS Monocytes 0.7 10^3/ul (0-0.8); ABS Neutrophils 5.2 10^3/ul (1.5-7.7); Eosinophil % 3.1 %; Hematocrit 28 % (42-52); Hemoglobin 9.3 g/dL (14.0-18.0); Lymphocyte % 13.1 %; Mean Corpuscular HGB Conc 34 g/dL (31-36); Mean Corpuscular Hemoglobin 30 pg (27-31); Mean Corpuscular Volume 91 fL (80-94); Platelet Count 191 10^3/uL (150-450); Red Blood Count 3.07 10^6 /uL (4.18-5.48); Red Cell Distribution Width 17 % (10-15); White Blood Count 7.1 10^3/uL (3.5-10.8)
[2020-09-03 06:55] LABS: EGFR African American 77.2 (>60); EGFR Non-African American 63.8 (>60); Magnesium 1.7 mg/dL (1.9-2.7); Potassium 3.7 mmol/L (3.5-5.0)
[2020-09-03] MEDS: Mometasone/Formoter 100/5 MDI INH SCH ×2 (07:17→19:39)
[2020-09-03] MEDS: Insulin GLARGINE 100 un/ml 10 ml VIAL SUBCUT SCH ×2 (08:31→21:20)
[2020-09-03] MEDS: Isosorbide Mononit ER 30mg TAB PO SCH (08:35)
[2020-09-03] MEDS: Aspirin EC 81 mg TAB.EC (enteric coated) PO SCH (08:35)
[2020-09-03] MEDS: Fluticasone NASAL SPRAY 50MCG 16 gm SPRAY BTL INTRANASAL SCH (08:39)
[2020-09-03] MEDS ORDERED: Magnesium Sulfate 2 gm BAG 2 GM/50 ML BAG IVPB ONE (08:45)
[2020-09-03] MEDS ORDERED: Potassium Chlor 20 meq TAB.ER PO ONE (08:46)
[2020-09-03] MEDS ORDERED: Morphine ER 15 mg TAB ** extended release PO ONE (15:15)
[2020-09-03] MEDS: Senna TAB 8.6 mg TAB PO SCH (21:18)
[2020-09-04] MEDS: Albuterol/Ipratropium NEB.SOL (2.5/0.5 MG) 3 ML NEB.SOLN INH SCH ×2 (00:27→07:37)
[2020-09-04 04:01] LABS: ABS Basophils 0.1 10^3/ul (0-0.2); ABS Eosinophils 0.2 10^3/ul (0-0.6); ABS Lymphocytes 1.2 10^3/ul (1.0-4.8); ABS Monocytes 0.8 10^3/ul (0-0.8); ABS Neutrophils 5.1 10^3/ul (1.5-7.7); Eosinophil % 2.7 %; Hematocrit 27 % (42-52); Lymphocyte % 16.3 %; Mean Corpuscular HGB Conc 34 g/dL (31-36); Mean Corpuscular Hemoglobin 30 pg (27-31); Mean Corpuscular Volume 90 fL (80-94); Mean Platelet Volume 9.2 fL (7.4-10.4); Platelet Count 195 10^3/uL (150-450); Red Blood Count 2.98 10^6 /uL (4.18-5.48); Red Cell Distribution Width 17 % (10-15); White Blood Count 7.3 10^3/uL (3.5-10.8)
[2020-09-04 04:21] LABS: Calcium 8.6 mg/dL (8.6-10.3); EGFR African American 75.7 (>60); EGFR Non-African American 62.6 (>60); Magnesium 1.8 mg/dL (1.9-2.7); Potassium 3.7 mmol/L (3.5-5.0)
[2020-09-04] MEDS: Mometasone/Formoter 100/5 MDI INH SCH ×2 (07:36→19:25)
[2020-09-04] MEDS ORDERED: Albuterol/Ipratropium NEB.SOL (2.5/0.5 MG) 3 ML NEB.SOLN INH PRN (07:38)
[2020-09-04] MEDS ORDERED: Magnesium Sulfate 2 gm BAG 2 GM/50 ML BAG IVPB ONE (08:35)
[2020-09-04] MEDS: Isosorbide Mononit ER 30mg TAB PO SCH (09:43)
[2020-09-04] MEDS: Potassium Chlor 20 meq TAB.ER PO SCH (09:43)
[2020-09-04] MEDS: Aspirin EC 81 mg TAB.EC (enteric coated) PO SCH (09:44)
[2020-09-04] MEDS: Fluticasone NASAL SPRAY 50MCG 16 gm SPRAY BTL INTRANASAL SCH (09:45)
[2020-09-04] MEDS: Morphine ER 15 mg TAB ** extended release PO SCH ×2 (09:45→20:58)
[2020-09-04] MEDS: Insulin GLARGINE 100 un/ml 10 ml VIAL SUBCUT SCH ×2 (09:46→20:56)
[2020-09-04] MEDS: Senna TAB 8.6 mg TAB PO SCH (20:58)
[2020-09-05] MEDS: Mometasone/Formoter 100/5 MDI INH SCH ×2 (07:16→19:36)
[2020-09-05 09:24] LABS: ABS Basophils 0.1 10^3/ul (0-0.2); ABS Eosinophils 0.2 10^3/ul (0-0.6); ABS Lymphocytes 0.9 10^3/ul (1.0-4.8); ABS Monocytes 0.7 10^3/ul (0-0.8); ABS Neutrophils 6.8 10^3/ul (1.5-7.7); Eosinophil % 2.2 %; Hematocrit 33 % (42-52); Hemoglobin 10.9 g/dL (14.0-18.0); Lymphocyte % 10.7 %; Mean Corpuscular HGB Conc 34 g/dL (31-36); Mean Corpuscular Hemoglobin 30 pg (27-31); Mean Corpuscular Volume 90 fL (80-94); Mean Platelet Volume 8.8 fL (7.4-10.4); Platelet Count 242 10^3/uL (150-450); Red Blood Count 3.61 10^6 /uL (4.18-5.48); Red Cell Distribution Width 17 % (10-15); White Blood Count 8.7 10^3/uL (3.5-10.8)
[2020-09-05 09:43] LABS: Calcium 9.2 mg/dL (8.6-10.3); EGFR African American 76.5 (>60); EGFR Non-African American 63.2 (>60); Magnesium 1.8 mg/dL (1.9-2.7); Potassium 3.8 mmol/L (3.5-5.0)
[2020-09-05] MEDS: Potassium Chlor 20 meq TAB.ER PO SCH (09:59)
[2020-09-05] MEDS: Isosorbide Mononit ER 30mg TAB PO SCH (10:00)
[2020-09-05] MEDS: Morphine ER 15 mg TAB ** extended release PO SCH ×2 (10:01→20:27)
[2020-09-05] MEDS: Aspirin EC 81 mg TAB.EC (enteric coated) PO SCH (10:01)
[2020-09-05] MEDS: Insulin GLARGINE 100 un/ml 10 ml VIAL SUBCUT SCH ×2 (10:02→20:27)
[2020-09-05] MEDS: Fluticasone NASAL SPRAY 50MCG 16 gm SPRAY BTL INTRANASAL SCH (10:02)
[2020-09-05] MEDS ORDERED: Magnesium Sulfate 2 gm BAG 2 GM/50 ML BAG IVPB ONE (16:44)
[2020-09-05] MEDS: Senna TAB 8.6 mg TAB PO SCH (20:26)
[2020-09-06] MEDS: Mometasone/Formoter 100/5 MDI INH SCH ×2 (08:04→19:46)
[2020-09-06] MEDS: Aspirin EC 81 mg TAB.EC (enteric coated) PO SCH (08:27)
[2020-09-06] MEDS: Isosorbide Mononit ER 30mg TAB PO SCH (08:27)
[2020-09-06] MEDS: Potassium Chlor 20 meq TAB.ER PO SCH (08:29)
[2020-09-06] MEDS: Morphine ER 15 mg TAB ** extended release PO SCH ×2 (08:30→20:47)
[2020-09-06] MEDS: Fluticasone NASAL SPRAY 50MCG 16 gm SPRAY BTL INTRANASAL SCH (08:31)
[2020-09-06] MEDS: Insulin GLARGINE 100 un/ml 10 ml VIAL SUBCUT SCH ×2 (08:32→20:48)
[2020-09-06] MEDS: Senna TAB 8.6 mg TAB PO SCH (20:46)
[2020-09-07 05:39] LABS: ABS Eosinophils 0.1 10^3/ul (0-0.6); ABS Lymphocytes 0.8 10^3/ul (1.0-4.8); ABS Monocytes 0.9 10^3/ul (0-0.8); ABS Neutrophils 5.4 10^3/ul (1.5-7.7); Eosinophil % 1.8 %; Hematocrit 28 % (42-52); Hemoglobin 9.3 g/dL (14.0-18.0); Mean Corpuscular HGB Conc 34 g/dL (31-36); Mean Corpuscular Hemoglobin 30 pg (27-31); Mean Corpuscular Volume 90 fL (80-94); Platelet Count 183 10^3/uL (150-450); Red Blood Count 3.05 10^6 /uL (4.18-5.48); Red Cell Distribution Width 17 % (10-15); White Blood Count 7.3 10^3/uL (3.5-10.8)
[2020-09-07 06:01] LABS: Calcium 8.8 mg/dL (8.6-10.3); EGFR African American 67.8 (>60); Magnesium 1.8 mg/dL (1.9-2.7); Potassium 3.8 mmol/L (3.5-5.0)
[2020-09-07] MEDS: Mometasone/Formoter 100/5 MDI INH SCH ×2 (08:01→20:02)
[2020-09-07] MEDS: Insulin GLARGINE 100 un/ml 10 ml VIAL SUBCUT SCH ×2 (08:48→21:59)
[2020-09-07] MEDS: Fluticasone NASAL SPRAY 50MCG 16 gm SPRAY BTL INTRANASAL SCH (08:48)
[2020-09-07] MEDS: Potassium Chlor 20 meq TAB.ER PO SCH (08:49)
[2020-09-07] MEDS: Morphine ER 15 mg TAB ** extended release PO SCH ×2 (08:51→21:58)
[2020-09-07] MEDS: Isosorbide Mononit ER 30mg TAB PO SCH (08:55)
[2020-09-07] MEDS: Aspirin EC 81 mg TAB.EC (enteric coated) PO SCH (08:56)
[2020-09-07] MEDS ORDERED: Magnesium Sulfate 2 gm BAG 2 GM/50 ML BAG IVPB ONE (15:35)
[2020-09-07] MEDS: Senna TAB 8.6 mg TAB PO SCH (21:57)
[2020-09-08 08:01] LABS: ABS Basophils 0.1 10^3/ul (0-0.2); ABS Eosinophils 0.1 10^3/ul (0-0.6); ABS Lymphocytes 0.9 10^3/ul (1.0-4.8); ABS Monocytes 0.9 10^3/ul (0-0.8); ABS Neutrophils 6.6 10^3/ul (1.5-7.7); Eosinophil % 1.6 %; Hematocrit 28 % (42-52); Hemoglobin 9.5 g/dL (14.0-18.0); Lymphocyte % 10.1 %; Mean Corpuscular HGB Conc 34 g/dL (31-36); Mean Corpuscular Hemoglobin 31 pg (27-31); Mean Corpuscular Volume 91 fL (80-94); Mean Platelet Volume 8.9 fL (7.4-10.4); Platelet Count 166 10^3/uL (150-450); Red Blood Count 3.05 10^6 /uL (4.18-5.48); Red Cell Distribution Width 16 % (10-15); White Blood Count 8.6 10^3/uL (3.5-10.8)
[2020-09-08 08:17] LABS: Calcium 8.9 mg/dL (8.6-10.3); EGFR African American 65.5 (>60); EGFR Non-African American 54.1 (>60); Magnesium 2.3 mg/dL (1.9-2.7); Potassium 4.3 mmol/L (3.5-5.0)
[2020-09-08] MEDS: Mometasone/Formoter 100/5 MDI INH SCH ×2 (08:25→20:02)
[2020-09-08] MEDS: Potassium Chlor 20 meq TAB.ER PO SCH (08:34)
[2020-09-08] MEDS: Morphine ER 15 mg TAB ** extended release PO SCH ×2 (08:37→22:20)
[2020-09-08] MEDS: Isosorbide Mononit ER 30mg TAB PO SCH (08:37)
[2020-09-08] MEDS: Aspirin EC 81 mg TAB.EC (enteric coated) PO SCH (08:38)
[2020-09-08] MEDS: Insulin GLARGINE 100 un/ml 10 ml VIAL SUBCUT SCH ×2 (08:41→22:22)
[2020-09-08] MEDS: Fluticasone NASAL SPRAY 50MCG 16 gm SPRAY BTL INTRANASAL SCH (08:42)
[2020-09-08] MEDS: Senna TAB 8.6 mg TAB PO SCH (22:19)
[2020-09-09] MEDS: Mometasone/Formoter 100/5 MDI INH SCH ×2 (08:22→19:03)
[2020-09-09] MEDS: Morphine ER 15 mg TAB ** extended release PO SCH ×2 (09:35→22:23)
[2020-09-09] MEDS: Potassium Chlor 20 meq TAB.ER PO SCH (09:35)
[2020-09-09] MEDS: Isosorbide Mononit ER 30mg TAB PO SCH (09:36)
[2020-09-09] MEDS: Insulin GLARGINE 100 un/ml 10 ml VIAL SUBCUT SCH ×2 (09:37→22:22)
[2020-09-09] MEDS: Aspirin EC 81 mg TAB.EC (enteric coated) PO SCH (09:37)
[2020-09-09] MEDS: Fluticasone NASAL SPRAY 50MCG 16 gm SPRAY BTL INTRANASAL SCH (09:44)
[2020-09-09] MEDS: Senna TAB 8.6 mg TAB PO SCH (22:22)
[2020-09-09 22:25] LABS: Urine Appearance Cloudy; Urine Bilirubin Negative (Negative); Urine Blood Negative (Negative); Urine Color Yellow; Urine Glucose Negative (Negative); Urine Ketones Negative (Negative); Urine Nitrite Negative (Negative); Urine Protein 2+(100 mg/dL) (Negative); Urine Specific Gravity 1.011 (1.002-1.030); Urine Urobilinogen Negative (Negative)
[2020-09-09 22:36] LABS: Urine Bacteria 1+ (Absent); Urine Red Blood Cell Trace(0-2/hpf) (Absent); Urine Squamous Epithelial Cell Present (Absent); Urine White Blood Cell Trace(0-5/hpf) (Absent)
[2020-09-10 03:51] VITALS: BP 110/60
[2020-09-10] MEDS: Mometasone/Formoter 100/5 MDI INH SCH (07:31)
[2020-09-10] MEDS: Potassium Chlor 20 meq TAB.ER PO SCH (08:24)
[2020-09-10] MEDS: Morphine ER 15 mg TAB ** extended release PO SCH (08:24)
[2020-09-10] MEDS: Isosorbide Mononit ER 30mg TAB PO SCH (08:24)
[2020-09-10] MEDS: Aspirin EC 81 mg TAB.EC (enteric coated) PO SCH (08:24)
[2020-09-10] MEDS: Insulin GLARGINE 100 un/ml 10 ml VIAL SUBCUT SCH (08:27)
[2020-09-10] MEDS: Fluticasone NASAL SPRAY 50MCG 16 gm SPRAY BTL INTRANASAL SCH (08:38)
== END 2020-09-10 11:23 ==
LOC: ED 21:01 → ICU 08-28 01:22 → MEDTELE 08-29 18:21
PROVIDERS: ADMIT Internal Medicine; ATTEND Hospitalist

== ENCOUNTER 2020-10-16 20:58 | Inpatient (IN) ==
[~2020-10-16 20:58] MED LIST: Cefepime 2 GM in Dextrose 2 GM/50 ML BAG IV SCH
[2020-10-16 21:26] LABS: PCO2 Arterial 64 mmHg (35-45); PO2 Arterial 226 mmHg (80-100)
[2020-10-16 21:33] LABS: ABS Basophils 0.1 10^3/ul (0-0.2); ABS Eosinophils 0.3 10^3/ul (0-0.6); ABS Lymphocytes 0.7 10^3/ul (1.0-4.8); ABS Monocytes 0.6 10^3/ul (0-0.8); ABS Neutrophils 12.9 10^3/ul (1.5-7.7); Eosinophil % 1.9 %; Hematocrit 31 % (42-52); Hemoglobin 9.5 g/dL (14.0-18.0); Lymphocyte % 4.6 %; Mean Corpuscular HGB Conc 31 g/dL (31-36); Mean Corpuscular Hemoglobin 27 pg (27-31); Mean Corpuscular Volume 89 fL (80-94); Mean Platelet Volume 8.2 fL (7.4-10.4); Platelet Count 263 10^3/uL (150-450); Red Blood Count 3.47 10^6 /uL (4.18-5.48); Red Cell Distribution Width 17 % (10-15); White Blood Count 14.5 10^3/uL (3.5-10.8)
[2020-10-16] MEDS ORDERED: nitroGLYCERIN DRIP 25,000 MCG/250 ML BTL IV ONE (21:42)
[2020-10-16 21:46] LABS: Activated Partial Thrombo Time 33.4 seconds (26.0-38.0); INR 1.75 (0.86-1.15)
[2020-10-16 21:49] LABS: Albumin 3.4 g/dL (3.2-5.2); Albumin/Globulin Ratio 0.8 (1-3); C Reactive Protein 17.89 mg/L (<8.01); Calcium 8.7 mg/dL (8.6-10.3); EGFR African American 52.7 (>60); EGFR Non-African American 43.5 (>60); Globulin 4.1 g/dL (2-4); Potassium 4.2 mmol/L (3.5-5.0); Total Protein 7.5 g/dL (6.4-8.9)
[2020-10-16 21:51] LABS: Troponin I 0.02 ng/mL (<0.03)
[2020-10-16] MEDS ORDERED: Piperacillin/Tazobac ADVAN 3.375 GM in NS 0.9% 100 ml BAG 100 ML IV ONE (21:52)
[2020-10-16] MEDS ORDERED: Vancomycin 1,000 MG VIAL IVPB ONE (21:52)
[2020-10-16] MEDS ORDERED: Vancomycin 2,000 MG in NS 0.9% 500 ml BAG 500 ML IVPB ONE (23:00)
[2020-10-16] MEDS ORDERED: Furosemide 40 mg/4 ml IV VIAL IV SLOW PU ONE (23:35)
[2020-10-16] MEDS ORDERED: Vancomycin per Pharmacy 1 EA NOTE FOLLOW UP SCH (23:39)
[2020-10-17 00:08] LABS: PCO2 Arterial 47 mmHg (35-45); PO2 Arterial 82 mmHg (80-100)
[2020-10-17] MEDS ORDERED: Ondansetron 4 mg VIAL 2 MG/ML 2 ml VIAL IV PRN (00:25)
[2020-10-17] MEDS ORDERED: Albuterol HFA INHALER 8 gm MDI INH PRN (02:05)
[2020-10-17] MEDS ORDERED: Dextrose 50% Syringe 50 ml 25 GM/50 ML SYRINGE IV PUSH PRN (02:12)
[2020-10-17] MEDS: Cefepime 2 GM in Dextrose 2 GM/50 ML BAG IV SCH ×2 (02:56→22:35)
[2020-10-17 03:13] LABS: Urine Appearance Cloudy; Urine Bilirubin Negative (Negative); Urine Blood 1+ (Negative); Urine Color Yellow; Urine Glucose 1+(50 mg/dL) (Negative); Urine Ketones Negative (Negative); Urine Nitrite Negative (Negative); Urine Protein 3+(>=500 mg/dL) (Negative); Urine Specific Gravity 1.009 (1.002-1.030); Urine Urobilinogen Negative (Negative)
[2020-10-17 05:45] LABS: Albumin 3.3 g/dL (3.2-5.2); Albumin/Globulin Ratio 0.8 (1-3); Calcium 8.9 mg/dL (8.6-10.3); Direct Bilirubin 0.2 mg/dL (0.03-0.18); EGFR African American 56.7 (>60); EGFR Non-African American 46.8 (>60); Indirect Bilirubin 0.9 mg/dL (0.3-1.0); Potassium 4.5 mmol/L (3.5-5.0); Total Bilirubin 1.1 mg/dL (0.2-1.0); Total Protein 7.3 g/dL (6.4-8.9)
[2020-10-17] MEDS: Mometasone/Formoter 100/5 MDI INH SCH ×2 (07:47→19:34)
[2020-10-17] MEDS: Morphine ER 15 mg TAB ** extended release PO SCH ×3 (08:01→21:06)
[2020-10-17] MEDS: Insulin GLARGINE 100 un/ml 10 ml VIAL SUBCUT SCH ×2 (08:28→22:34)
[2020-10-17] MEDS: Aspirin EC 81 mg TAB.EC (enteric coated) PO SCH (08:30)
[2020-10-17] MEDS: Isosorbide Mononit ER 30mg TAB PO SCH (08:31)
[2020-10-17] MEDS: Potassium Chlor 20 meq TAB.ER PO SCH (08:31)
[2020-10-17 10:06] LABS: ABS Lymphocytes 0.5 10^3/ul (1.0-4.8); ABS Monocytes 0.3 10^3/ul (0-0.8); ABS Neutrophils 6.4 10^3/ul (1.5-7.7); Eosinophil % 0.1 %; Hematocrit 28 % (42-52); Hemoglobin 9.1 g/dL (14.0-18.0); Lymphocyte % 6.3 %; Mean Corpuscular HGB Conc 33 g/dL (31-36); Mean Corpuscular Hemoglobin 29 pg (27-31); Mean Corpuscular Volume 87 fL (80-94); Platelet Count 187 10^3/uL (150-450); Red Blood Count 3.18 10^6 /uL (4.18-5.48); Red Cell Distribution Width 17 % (10-15); White Blood Count 7.2 10^3/uL (3.5-10.8)
[2020-10-17] MEDS: Umeclidinium 62.5 MDI(NF) MDI INH SCH (10:33)
[2020-10-17] MEDS ORDERED: Vancomycin 1,500 MG in NS 0.9% 250 ml 250 ML IVPB SCH (18:30)
[2020-10-17] MEDS: Senna TAB 8.6 mg TAB PO SCH (21:05)
[2020-10-18] MEDS: Mometasone/Formoter 100/5 MDI INH SCH ×2 (07:42→20:15)
[2020-10-18] MEDS: Aspirin EC 81 mg TAB.EC (enteric coated) PO SCH (08:41)
[2020-10-18] MEDS: Isosorbide Mononit ER 30mg TAB PO SCH (08:43)
[2020-10-18] MEDS: Insulin GLARGINE 100 un/ml 10 ml VIAL SUBCUT SCH ×2 (08:43→20:29)
[2020-10-18] MEDS: Morphine ER 15 mg TAB ** extended release PO SCH ×2 (08:44→20:27)
[2020-10-18] MEDS: Potassium Chlor 20 meq TAB.ER PO SCH (08:44)
[2020-10-18] MEDS ORDERED: Furosemide 40 mg/4 ml IV VIAL IV ONE (10:43)
[2020-10-18 12:40] LABS: ABS Basophils 0.1 10^3/ul (0-0.2); ABS Eosinophils 0.2 10^3/ul (0-0.6); ABS Lymphocytes 0.9 10^3/ul (1.0-4.8); ABS Monocytes 0.5 10^3/ul (0-0.8); ABS Neutrophils 5.2 10^3/ul (1.5-7.7); Eosinophil % 2.6 %; Hematocrit 26 % (42-52); Hemoglobin 8.5 g/dL (14.0-18.0); Lymphocyte % 13.2 %; Mean Corpuscular HGB Conc 33 g/dL (31-36); Mean Corpuscular Hemoglobin 29 pg (27-31); Mean Corpuscular Volume 87 fL (80-94); Mean Platelet Volume 8.3 fL (7.4-10.4); Nucleated Red Blood Cells % 0.1; Platelet Count 189 10^3/uL (150-450); Red Blood Count 2.95 10^6 /uL (4.18-5.48); Red Cell Distribution Width 17 % (10-15); White Blood Count 6.8 10^3/uL (3.5-10.8)
[2020-10-18 12:53] LABS: Albumin/Globulin Ratio 0.9 (1-3); Calcium 8.7 mg/dL (8.6-10.3); EGFR African American 71.5 (>60); EGFR Non-African American 59.1 (>60); Globulin 3.5 g/dL (2-4); Potassium 3.8 mmol/L (3.5-5.0); Total Bilirubin 0.7 mg/dL (0.2-1.0); Total Protein 6.5 g/dL (6.4-8.9)
[2020-10-18] MEDS: Umeclidinium 62.5 MDI(NF) MDI INH SCH (14:35)
[2020-10-18] MEDS: Senna TAB 8.6 mg TAB PO SCH (20:27)
[2020-10-19 05:18] LABS: ABS Basophils 0.1 10^3/ul (0-0.2); ABS Eosinophils 0.2 10^3/ul (0-0.6); ABS Lymphocytes 0.9 10^3/ul (1.0-4.8); ABS Monocytes 0.6 10^3/ul (0-0.8); ABS Neutrophils 4.8 10^3/ul (1.5-7.7); Eosinophil % 3.6 %; Hematocrit 25 % (42-52); Hemoglobin 8.4 g/dL (14.0-18.0); Lymphocyte % 13.9 %; Mean Corpuscular HGB Conc 33 g/dL (31-36); Mean Corpuscular Hemoglobin 29 pg (27-31); Mean Corpuscular Volume 87 fL (80-94); Mean Platelet Volume 8.7 fL (7.4-10.4); Platelet Count 189 10^3/uL (150-450); Red Blood Count 2.93 10^6 /uL (4.18-5.48); Red Cell Distribution Width 17 % (10-15); White Blood Count 6.6 10^3/uL (3.5-10.8)
[2020-10-19 05:32] LABS: Albumin/Globulin Ratio 0.8 (1-3); Calcium 8.7 mg/dL (8.6-10.3); EGFR Non-African American 64.4 (>60); Globulin 3.7 g/dL (2-4); Magnesium 1.6 mg/dL (1.9-2.7); Phosphorus 2.6 mg/dL (2.5-5.0); Potassium 3.5 mmol/L (3.5-5.0); Total Bilirubin 0.8 mg/dL (0.2-1.0); Total Protein 6.7 g/dL (6.4-8.9)
[2020-10-19] MEDS ORDERED: Vancomycin Trough Check NOTE FOLLOW UP ONE (06:00)
[2020-10-19] MEDS ORDERED: Magnesium Sulfate 2 gm BAG 2 GM/50 ML BAG IVPB ONE (08:36)
[2020-10-19] MEDS: Aspirin EC 81 mg TAB.EC (enteric coated) PO SCH (08:57)
[2020-10-19] MEDS: Isosorbide Mononit ER 30mg TAB PO SCH (08:57)
[2020-10-19] MEDS: Morphine ER 15 mg TAB ** extended release PO SCH ×2 (08:58→21:26)
[2020-10-19] MEDS: Potassium Chlor 20 meq TAB.ER PO SCH (08:59)
[2020-10-19] MEDS: Insulin GLARGINE 100 un/ml 10 ml VIAL SUBCUT SCH ×2 (09:02→21:28)
[2020-10-19] MEDS: Mometasone/Formoter 100/5 MDI INH SCH ×2 (09:26→21:26)
[2020-10-19] MEDS: Umeclidinium 62.5 MDI(NF) MDI INH SCH (10:13)
[2020-10-19] MEDS: Senna TAB 8.6 mg TAB PO SCH (21:25)
[2020-10-20] MEDS: Aspirin EC 81 mg TAB.EC (enteric coated) PO SCH (09:22)
[2020-10-20] MEDS: Isosorbide Mononit ER 30mg TAB PO SCH (09:22)
[2020-10-20] MEDS: Morphine ER 15 mg TAB ** extended release PO SCH ×2 (09:23→21:21)
[2020-10-20] MEDS: Potassium Chlor 20 meq TAB.ER PO SCH (09:24)
[2020-10-20] MEDS: Insulin GLARGINE 100 un/ml 10 ml VIAL SUBCUT SCH ×2 (09:25→21:22)
[2020-10-20] MEDS: Umeclidinium 62.5 MDI(NF) MDI INH SCH (09:26)
[2020-10-20] MEDS: Mometasone/Formoter 100/5 MDI INH SCH ×2 (19:31)
[2020-10-20] MEDS ORDERED: Insulin GLARGINE 100 un/ml 10 ml VIAL SUBCUT SCH (21:00)
[2020-10-20] MEDS: Senna TAB 8.6 mg TAB PO SCH (21:20)
[2020-10-21 05:49] LABS: ABS Basophils 0.1 10^3/ul (0-0.2); ABS Eosinophils 0.3 10^3/ul (0-0.6); ABS Lymphocytes 1.1 10^3/ul (1.0-4.8); ABS Monocytes 0.8 10^3/ul (0-0.8); ABS Neutrophils 4.8 10^3/ul (1.5-7.7); Eosinophil % 4.3 %; Hematocrit 27 % (42-52); Hemoglobin 8.9 g/dL (14.0-18.0); Lymphocyte % 15.7 %; Mean Corpuscular HGB Conc 34 g/dL (31-36); Mean Corpuscular Hemoglobin 29 pg (27-31); Mean Corpuscular Volume 86 fL (80-94); Mean Platelet Volume 8.5 fL (7.4-10.4); Platelet Count 218 10^3/uL (150-450); Red Cell Distribution Width 17 % (10-15)
[2020-10-21 06:07] LABS: Calcium 8.8 mg/dL (8.6-10.3); EGFR Non-African American 54.6 (>60); Magnesium 1.6 mg/dL (1.9-2.7); Potassium 3.6 mmol/L (3.5-5.0)
[2020-10-21] MEDS ORDERED: Potassium Chlor 20 meq TAB.ER PO ONE (07:15)
[2020-10-21] MEDS: Mometasone/Formoter 100/5 MDI INH SCH ×2 (07:42→20:34)
[2020-10-21] MEDS: Isosorbide Mononit ER 30mg TAB PO SCH (09:34)
[2020-10-21] MEDS: Morphine ER 15 mg TAB ** extended release PO SCH ×2 (09:35→20:36)
[2020-10-21] MEDS: Aspirin EC 81 mg TAB.EC (enteric coated) PO SCH (09:35)
[2020-10-21] MEDS: Potassium Chlor 20 meq TAB.ER PO SCH (09:35)
[2020-10-21] MEDS: Umeclidinium 62.5 MDI(NF) MDI INH SCH (09:36)
[2020-10-21] MEDS: Insulin GLARGINE 100 un/ml 10 ml VIAL SUBCUT SCH ×2 (09:36→20:40)
[2020-10-21] MEDS: Senna TAB 8.6 mg TAB PO SCH (20:35)
[2020-10-22] MEDS: Insulin GLARGINE 100 un/ml 10 ml VIAL SUBCUT SCH ×2 (08:36→20:53)
[2020-10-22] MEDS: Aspirin EC 81 mg TAB.EC (enteric coated) PO SCH (08:37)
[2020-10-22] MEDS: Isosorbide Mononit ER 30mg TAB PO SCH (08:37)
[2020-10-22] MEDS: Potassium Chlor 20 meq TAB.ER PO SCH (08:38)
[2020-10-22] MEDS: Morphine ER 15 mg TAB ** extended release PO SCH ×2 (08:38→20:53)
[2020-10-22] MEDS: Umeclidinium 62.5 MDI(NF) MDI INH SCH (08:45)
[2020-10-22] MEDS: Mometasone/Formoter 100/5 MDI INH SCH ×2 (09:28→22:24)
[2020-10-22] MEDS: Senna TAB 8.6 mg TAB PO SCH (20:53)
[2020-10-23 06:25] LABS: ABS Eosinophils 0.3 10^3/ul (0-0.6); ABS Monocytes 0.8 10^3/ul (0-0.8); ABS Neutrophils 4.6 10^3/ul (1.5-7.7); Eosinophil % 3.8 %; Hematocrit 27 % (42-52); Hemoglobin 9.1 g/dL (14.0-18.0); Lymphocyte % 15.5 %; Mean Corpuscular HGB Conc 34 g/dL (31-36); Mean Corpuscular Hemoglobin 29 pg (27-31); Mean Corpuscular Volume 85 fL (80-94); Mean Platelet Volume 8.4 fL (7.4-10.4); Platelet Count 228 10^3/uL (150-450); Red Blood Count 3.15 10^6 /uL (4.18-5.48); Red Cell Distribution Width 17 % (10-15); White Blood Count 6.7 10^3/uL (3.5-10.8)
[2020-10-23 06:46] LABS: Calcium 8.8 mg/dL (8.6-10.3); EGFR African American 66.6 (>60); Magnesium 1.6 mg/dL (1.9-2.7); Potassium 3.4 mmol/L (3.5-5.0); Uric Acid 7.6 mg/dL (4.4-7.6)
[2020-10-23] MEDS ORDERED: Potassium Chloride LIQUID 20 MEQ/15 ML LIQUID PO ONE (06:57)
[2020-10-23] MEDS ORDERED: Magnesium Sulfate 2 gm BAG 2 GM/50 ML BAG IVPB ONE (06:57)
[2020-10-23] MEDS: Insulin GLARGINE 100 un/ml 10 ml VIAL SUBCUT SCH (08:28)
[2020-10-23] MEDS: Aspirin EC 81 mg TAB.EC (enteric coated) PO SCH (08:30)
[2020-10-23] MEDS: Potassium Chlor 20 meq TAB.ER PO SCH (08:30)
[2020-10-23] MEDS: Isosorbide Mononit ER 30mg TAB PO SCH (08:30)
[2020-10-23] MEDS: Morphine ER 15 mg TAB ** extended release PO SCH (08:30)
[2020-10-23] MEDS: Umeclidinium 62.5 MDI(NF) MDI INH SCH (10:33)
[2020-10-23 12:25] VITALS: BP 121/46
== END 2020-10-23 12:00 | DRG 194 ==
LOC: ED 20:58 → ICU 10-17 03:35 → MEDTELE 10-18 15:39
PROVIDERS: ADMIT Internal Medicine; ATTEND Internal Medicine

== ENCOUNTER 2020-12-21 11:19 | Inpatient (IN) ==
[2020-12-21 11:50] LABS: ABS Basophils 0.1 10^3/ul (0-0.2); ABS Eosinophils 0.3 10^3/ul (0-0.6); ABS Lymphocytes 0.6 10^3/ul (1.0-4.8); ABS Monocytes 0.6 10^3/ul (0-0.8); ABS Neutrophils 10.1 10^3/ul (1.5-7.7); Eosinophil % 2.3 %; Hematocrit 29 % (42-52); Hemoglobin 9.3 g/dL (14.0-18.0); Mean Corpuscular HGB Conc 32 g/dL (31-36); Mean Corpuscular Hemoglobin 28 pg (27-31); Mean Corpuscular Volume 87 fL (80-94); Mean Platelet Volume 7.5 fL (7.4-10.4); Platelet Count 418 10^3/uL (150-450); Red Blood Count 3.32 10^6 /uL (4.18-5.48); Red Cell Distribution Width 21 % (10-15); White Blood Count 11.6 10^3/uL (3.5-10.8)
[2020-12-21 12:00] LABS: Activated Partial Thrombo Time 35.1 seconds (26.0-38.0); INR 1.76 (0.86-1.15)
[2020-12-21 12:07] LABS: Albumin 3.5 g/dL (3.2-5.2); Albumin/Globulin Ratio 0.7 (1-3); C Reactive Protein 138.42 mg/L (<8.01); Calcium 9.9 mg/dL (8.6-10.3); Globulin 5.1 g/dL (2-4); Potassium 4.3 mmol/L (3.5-5.0); Total Bilirubin 0.7 mg/dL (0.2-1.0); Total Protein 8.6 g/dL (6.4-8.9)
[2020-12-21 12:08] LABS: Troponin I 0.02 ng/mL (<0.03)
[2020-12-21 14:52] LABS: Urine Appearance Cloudy; Urine Bilirubin Negative (Negative); Urine Blood Negative (Negative); Urine Color Yellow; Urine Glucose Negative (Negative); Urine Ketones Negative (Negative); Urine Nitrite Negative (Negative); Urine Protein 2+(100 mg/dL) (Negative); Urine Urobilinogen Negative (Negative)
[2020-12-21 15:07] LABS: Urine Bacteria 1+ (Absent); Urine Red Blood Cell Trace(0-2/hpf) (Absent); Urine Squamous Epithelial Cell Present (Absent); Urine White Blood Cell 2+(11-20/hpf) (Absent)
[2020-12-21] MEDS ORDERED: Lactated Ringers 1000 ml BAG 1,000 ML IV ONE (16:24)
[2020-12-21] MEDS ORDERED: cefTRIAXone 1 gm/50 mL NS BAG 1 GM/50 ML BAG IV ONE (16:29)
[2020-12-21] MEDS ORDERED: Furosemide 40 mg/4 ml IV VIAL IV SLOW PU ONE (18:48)
[2020-12-21 19:35] LABS: Rapid COVID-19 Molecular Undetected (Undetected)
[2020-12-21] MEDS ORDERED: Dextrose 50% Syringe 50 ml 25 GM/50 ML SYRINGE IV PUSH PRN (19:46)
[2020-12-21] MEDS: Cefepime 2 GM in Dextrose 2 GM/50 ML BAG IV SCH (21:55)
[2020-12-21] MEDS: Insulin GLARGINE 100 un/ml 10 ml VIAL SUBCUT SCH (21:55)
[2020-12-21] MEDS: Mometasone/Formoter 100/5 MDI INH SCH (23:55)
[2020-12-22] MEDS ORDERED: Morphine ER 30 mg TAB ** extended release PO SCH (01:00)
[2020-12-22 06:37] LABS: C Reactive Protein 116.9 mg/L (<8.01); Calcium 9.7 mg/dL (8.6-10.3); Potassium 3.7 mmol/L (3.5-5.0)
[2020-12-22 06:40] LABS: ABS Basophils 0.1 10^3/ul (0-0.2); ABS Eosinophils 0.3 10^3/ul (0-0.6); ABS Lymphocytes 0.6 10^3/ul (1.0-4.8); ABS Monocytes 0.7 10^3/ul (0-0.8); ABS Neutrophils 8.4 10^3/ul (1.5-7.7); Eosinophil % 3.4 %; Hematocrit 28 % (42-52); Hemoglobin 8.9 g/dL (14.0-18.0); Lymphocyte % 5.6 %; Mean Corpuscular HGB Conc 32 g/dL (31-36); Mean Corpuscular Hemoglobin 28 pg (27-31); Mean Corpuscular Volume 87 fL (80-94); Mean Platelet Volume 7.8 fL (7.4-10.4); Platelet Count 370 10^3/uL (150-450); Red Blood Count 3.15 10^6 /uL (4.18-5.48); Red Cell Distribution Width 20 % (10-15); White Blood Count 10.1 10^3/uL (3.5-10.8)
[2020-12-22] MEDS: Mometasone/Formoter 100/5 MDI INH SCH ×2 (08:37→19:18)
[2020-12-22] MEDS: SPIRIVA Respimat (tiotropium) 2.5 mcg/inh Inhaler INH SCH (08:39)
[2020-12-22] MEDS ORDERED: Furosemide 40 mg/4 ml IV VIAL IV SLOW PU SCH (09:00)
[2020-12-22] MEDS: Cefepime 2 GM in Dextrose 2 GM/50 ML BAG IV SCH (10:30)
[2020-12-22] MEDS: Insulin GLARGINE 100 un/ml 10 ml VIAL SUBCUT SCH ×2 (10:39→22:47)
[2020-12-22] MEDS: Isosorbide Mononit ER 30mg TAB PO SCH (10:40)
[2020-12-22] MEDS: Potassium Chlor 20 meq TAB.ER PO SCH (10:40)
[2020-12-22] MEDS: Aspirin EC 81 mg TAB.EC (enteric coated) PO SCH (10:40)
[2020-12-22 10:43] LABS: PCO2 Arterial 43 mmHg (35-45); PO2 Arterial 171 mmHg (80-100)
[2020-12-22] MEDS: Ciprofloxacin 400mg IVPREMIX 400 MG/200 ML BAG IVPB SCH (20:32)
[2020-12-22] MEDS ORDERED: cefTRIAXone 2 GM ADDV.VIAL 2 GM in NS 0.9% 100 ml BAG 100 ML IV SCH (21:00)
[2020-12-23] MEDS: Morphine ER 30 mg TAB ** extended release PO PRN ×3 (01:27→21:41)
[2020-12-23] MEDS: Ciprofloxacin 400mg IVPREMIX 400 MG/200 ML BAG IVPB SCH ×2 (05:27→22:18)
[2020-12-23] MEDS: Albuterol HFA INHALER 8 gm MDI INH PRN (07:11)
[2020-12-23] MEDS: SPIRIVA Respimat (tiotropium) 2.5 mcg/inh Inhaler INH SCH (07:11)
[2020-12-23] MEDS: Mometasone/Formoter 100/5 MDI INH SCH ×2 (07:13→19:31)
[2020-12-23] MEDS: Potassium Chlor 20 meq TAB.ER PO SCH (09:29)
[2020-12-23] MEDS: Isosorbide Mononit ER 30mg TAB PO SCH (09:30)
[2020-12-23] MEDS: Insulin GLARGINE 100 un/ml 10 ml VIAL SUBCUT SCH ×2 (10:23→21:35)
[2020-12-23] MEDS: Aspirin EC 81 mg TAB.EC (enteric coated) PO SCH (11:25)
[2020-12-23 15:18] LABS: Calcium 9.1 mg/dL (8.6-10.3); Magnesium 1.8 mg/dL (1.9-2.7); Potassium 4.6 mmol/L (3.5-5.0)
[2020-12-23] MEDS: Senna TAB 8.6 mg TAB PO PRN (21:41)
[2020-12-24] MEDS: Ciprofloxacin 400mg IVPREMIX 400 MG/200 ML BAG IVPB SCH ×2 (06:04→19:00)
[2020-12-24] MEDS: Mometasone/Formoter 100/5 MDI INH SCH ×2 (07:47→20:24)
[2020-12-24] MEDS: SPIRIVA Respimat (tiotropium) 2.5 mcg/inh Inhaler INH SCH (07:47)
[2020-12-24] MEDS: Insulin GLARGINE 100 un/ml 10 ml VIAL SUBCUT SCH ×2 (08:30→21:31)
[2020-12-24] MEDS: Potassium Chlor 20 meq TAB.ER PO SCH (08:33)
[2020-12-24] MEDS: Isosorbide Mononit ER 30mg TAB PO SCH (08:35)
[2020-12-24] MEDS: Aspirin EC 81 mg TAB.EC (enteric coated) PO SCH (08:49)
[2020-12-24] MEDS: Morphine ER 30 mg TAB ** extended release PO PRN (21:37)
[2020-12-25] MEDS: Ciprofloxacin 400mg IVPREMIX 400 MG/200 ML BAG IVPB SCH (05:57)
[2020-12-25] MEDS: SPIRIVA Respimat (tiotropium) 2.5 mcg/inh Inhaler INH SCH (07:24)
[2020-12-25] MEDS: Mometasone/Formoter 100/5 MDI INH SCH ×2 (07:24→19:32)
[2020-12-25] MEDS: Potassium Chlor 20 meq TAB.ER PO SCH (09:06)
[2020-12-25] MEDS: Isosorbide Mononit ER 30mg TAB PO SCH (09:06)
[2020-12-25] MEDS: Aspirin EC 81 mg TAB.EC (enteric coated) PO SCH (09:06)
[2020-12-25] MEDS: Insulin GLARGINE 100 un/ml 10 ml VIAL SUBCUT SCH ×2 (09:07→21:13)
[2020-12-26 04:35] LABS: ABS Basophils 0.1 10^3/ul (0-0.2); ABS Eosinophils 0.5 10^3/ul (0-0.6); ABS Lymphocytes 1.1 10^3/ul (1.0-4.8); ABS Monocytes 0.8 10^3/ul (0-0.8); Eosinophil % 6.7 %; Hematocrit 27 % (42-52); Hemoglobin 8.9 g/dL (14.0-18.0); Lymphocyte % 14.9 %; Mean Corpuscular HGB Conc 32 g/dL (31-36); Mean Corpuscular Hemoglobin 29 pg (27-31); Mean Corpuscular Volume 88 fL (80-94); Mean Platelet Volume 7.3 fL (7.4-10.4); Nucleated Red Blood Cells % 0.1; Platelet Count 356 10^3/uL (150-450); Red Blood Count 3.12 10^6 /uL (4.18-5.48); Red Cell Distribution Width 20 % (10-15); White Blood Count 7.5 10^3/uL (3.5-10.8)
[2020-12-26 04:52] LABS: Calcium 9.2 mg/dL (8.6-10.3); Magnesium 1.7 mg/dL (1.9-2.7); Potassium 4.1 mmol/L (3.5-5.0)
[2020-12-26] MEDS: SPIRIVA Respimat (tiotropium) 2.5 mcg/inh Inhaler INH SCH (07:14)
[2020-12-26] MEDS: Mometasone/Formoter 100/5 MDI INH SCH ×2 (07:15→19:38)
[2020-12-26] MEDS: Insulin GLARGINE 100 un/ml 10 ml VIAL SUBCUT SCH ×2 (09:53→20:36)
[2020-12-26] MEDS: Isosorbide Mononit ER 30mg TAB PO SCH (09:57)
[2020-12-26] MEDS: Aspirin EC 81 mg TAB.EC (enteric coated) PO SCH (09:57)
[2020-12-26] MEDS: Potassium Chlor 20 meq TAB.ER PO SCH (10:01)
[2020-12-26] MEDS: Nystatin TOP POWDER 15 GM BTL TOPICAL SCH ×2 (17:15→20:36)
[2020-12-27] MEDS: SPIRIVA Respimat (tiotropium) 2.5 mcg/inh Inhaler INH SCH (08:01)
[2020-12-27] MEDS: Mometasone/Formoter 100/5 MDI INH SCH ×2 (08:06→20:32)
[2020-12-27 08:20] LABS: Calcium 9.8 mg/dL (8.6-10.3)
[2020-12-27] MEDS: Insulin GLARGINE 100 un/ml 10 ml VIAL SUBCUT SCH ×2 (08:27→21:02)
[2020-12-27] MEDS: Aspirin EC 81 mg TAB.EC (enteric coated) PO SCH (08:29)
[2020-12-27] MEDS: Isosorbide Mononit ER 30mg TAB PO SCH (08:29)
[2020-12-27] MEDS: Potassium Chlor 20 meq TAB.ER PO SCH (08:30)
[2020-12-27] MEDS ORDERED: NS 0.9% 500 ml BAG 500 ML IV ONE (12:18)
[2020-12-27] MEDS: Nystatin TOP POWDER 15 GM BTL TOPICAL SCH ×3 (14:37→20:47)
[2020-12-27 15:37] LABS: Rapid COVID-19 Molecular Undetected (Undetected)
[2020-12-27 18:26] LABS: PCO2 Arterial 41 mmHg (35-45); PO2 Arterial 161 mmHg (80-100)
[2020-12-28 06:24] LABS: Calcium 8.9 mg/dL (8.6-10.3); Potassium 4.2 mmol/L (3.5-5.0)
[2020-12-28] MEDS: Albuterol HFA INHALER 8 gm MDI INH PRN (07:40)
[2020-12-28] MEDS: SPIRIVA Respimat (tiotropium) 2.5 mcg/inh Inhaler INH SCH (07:40)
[2020-12-28] MEDS: Mometasone/Formoter 100/5 MDI INH SCH ×2 (07:53→19:56)
[2020-12-28] MEDS: Aspirin EC 81 mg TAB.EC (enteric coated) PO SCH (09:19)
[2020-12-28] MEDS: Isosorbide Mononit ER 30mg TAB PO SCH (09:22)
[2020-12-28] MEDS: Potassium Chlor 20 meq TAB.ER PO SCH (09:23)
[2020-12-28] MEDS: Insulin GLARGINE 100 un/ml 10 ml VIAL SUBCUT SCH ×2 (09:24→19:50)
[2020-12-28] MEDS: Nystatin TOP POWDER 15 GM BTL TOPICAL SCH ×3 (09:28→19:50)
[2020-12-28 16:51] LABS: Urine Creatinine Concentration 33.37 mg/dL
[2020-12-28] MEDS ORDERED: NS 0.9% 1000 ml BAG 1,000 ML IV SCH (17:15)
[2020-12-28] MEDS: Senna TAB 8.6 mg TAB PO PRN (19:47)
[2020-12-28] MEDS: Morphine ER 30 mg TAB ** extended release PO PRN (19:48)
[2020-12-29 06:04] LABS: Potassium 4.2 mmol/L (3.5-5.0)
[2020-12-29] MEDS: Morphine ER 30 mg TAB ** extended release PO PRN (07:45)
[2020-12-29] MEDS: Potassium Chlor 20 meq TAB.ER PO SCH (08:31)
[2020-12-29] MEDS: Isosorbide Mononit ER 30mg TAB PO SCH (08:32)
[2020-12-29] MEDS: Insulin GLARGINE 100 un/ml 10 ml VIAL SUBCUT SCH (08:34)
[2020-12-29] MEDS: Aspirin EC 81 mg TAB.EC (enteric coated) PO SCH (08:36)
[2020-12-29] MEDS: Nystatin TOP POWDER 15 GM BTL TOPICAL SCH (08:36)
[2020-12-29] MEDS: SPIRIVA Respimat (tiotropium) 2.5 mcg/inh Inhaler INH SCH (09:19)
[2020-12-29] MEDS: Mometasone/Formoter 100/5 MDI INH SCH (09:21)
[2020-12-29] MEDS ORDERED: Lidocaine PATCH 5% PATCH TRANSDERM SCH (12:00)
[2020-12-29 12:01] VITALS: BP 120/61
[2020-12-29] MEDS ORDERED: Lidocaine Patch REMOVE PATCH PATCH OFF SCH (21:00)
== END 2020-12-29 13:50 | DRG 52 ==
LOC: ED 11:19 → SUATTDRO 18:32 → MEDTELE 18:32
PROVIDERS: ADMIT Internal Medicine; ATTEND Internal Medicine

== ENCOUNTER 2021-05-11 13:47 | Inpatient (IN) ==
[2021-05-11 15:36] LABS: ABS Basophils 0.1 10^3/ul (0-0.2); ABS Eosinophils 0.2 10^3/ul (0-0.6); ABS Lymphocytes 0.6 10^3/ul (1.0-4.8); ABS Monocytes 0.9 10^3/ul (0-0.8); ABS Neutrophils 5.2 10^3/ul (1.5-7.7); Eosinophil % 3.1 %; Hematocrit 32 % (42-52); Hemoglobin 10.5 g/dL (14.0-18.0); Lymphocyte % 9.1 %; Mean Corpuscular HGB Conc 33 g/dL (31-36); Mean Corpuscular Hemoglobin 31 pg (27-31); Mean Corpuscular Volume 93 fL (80-94); Mean Platelet Volume 7.8 fL (7.4-10.4); Platelet Count 230 10^3/uL (150-450); Red Blood Count 3.42 10^6 /uL (4.18-5.48); Red Cell Distribution Width 15 % (10-15)
[2021-05-11 15:37] LABS: Venous Bicarbonate HCO3 29.7 mmol/L (24-28)
[2021-05-11 15:59] LABS: Ammonia 32 mcmol/L (16-53); Troponin I 0.03 ng/mL (<0.03)
[2021-05-11 16:01] LABS: ALT 9 U/L (7-52); AST 13 U/L (13-39); Albumin 3.6 g/dL (3.2-5.2); Alkaline Phosphatase 66 U/L (35-149); Anion Gap 5 mmol/L (2-11); Blood Urea Nitrogen 62 mg/dL (6-24); CO2 Carbon Dioxide 30 mmol/L (22-32); Calcium 9.6 mg/dL (8.6-10.3); Chloride 102 mmol/L (101-111); Globulin 3.6 g/dL (2-4); Glucose 144 mg/dL (70-100); Potassium 4.4 mmol/L (3.5-5.0); Sodium 137 mmol/L (135-145); Total Protein 7.2 g/dL (6.4-8.9); eGFR CKD-EPI 46.6 (>60)
[2021-05-11 16:04] LABS: Urine Appearance Cloudy; Urine Bilirubin Negative (Negative); Urine Blood 3+ (Negative); Urine Color Yellow; Urine Glucose Negative (Negative); Urine Ketones Negative (Negative); Urine Nitrite Negative (Negative); Urine Protein 2+(100 mg/dL) (Negative); Urine Urobilinogen Negative (Negative)
[2021-05-11 16:08] LABS: Urine Bacteria Absent (Absent); Urine Red Blood Cell 3+(>10/hpf) (Absent); Urine White Blood Cell Absent (Absent)
[2021-05-11 16:35] LABS: TSH Ultra Thyroid Stim Horm 7.77 mcIU/mL (0.34-5.60)
[2021-05-11 17:26] LABS: Free T4 0.99 ng/dL (0.61-1.12)
[2021-05-11 17:49] LABS: BNP 229 pg/mL (<=100)
[2021-05-11] MEDS ORDERED: Albuterol HFA INHALER 8 gm MDI INH PRN (18:30)
[2021-05-11 19:52] LABS: Magnesium 2.1 mg/dL (1.9-2.7)
[2021-05-11] MEDS: Mometasone/Formoter 200/5 MDI INH SCH (23:16)
[2021-05-12 06:18] LABS: ABS Eosinophils 0.3 10^3/ul (0-0.6); ABS Lymphocytes 0.8 10^3/ul (1.0-4.8); ABS Monocytes 0.7 10^3/ul (0-0.8); ABS Neutrophils 4.4 10^3/ul (1.5-7.7); Eosinophil % 5.3 %; Hematocrit 31 % (42-52); Hemoglobin 10.5 g/dL (14.0-18.0); Lymphocyte % 12.4 %; Mean Corpuscular HGB Conc 33 g/dL (31-36); Mean Corpuscular Hemoglobin 31 pg (27-31); Mean Corpuscular Volume 94 fL (80-94); Mean Platelet Volume 8.4 fL (7.4-10.4); Platelet Count 208 10^3/uL (150-450); Red Blood Count 3.36 10^6 /uL (4.18-5.48); Red Cell Distribution Width 15 % (10-15); White Blood Count 6.2 10^3/uL (3.5-10.8)
[2021-05-12 06:26] LABS: Anion Gap 8 mmol/L (2-11); Blood Urea Nitrogen 54 mg/dL (6-24); CO2 Carbon Dioxide 30 mmol/L (22-32); Calcium 9.4 mg/dL (8.6-10.3); Chloride 100 mmol/L (101-111); Glucose 155 mg/dL (70-100); Potassium 3.9 mmol/L (3.5-5.0); Sodium 138 mmol/L (135-145); eGFR CKD-EPI 59.6 (>60)
[2021-05-12 07:53] LABS: Troponin I 0.03 ng/mL (<0.03)
[2021-05-12] MEDS: Mometasone/Formoter 200/5 MDI INH SCH (08:01)
[2021-05-12] MEDS ORDERED: Senna TAB 8.6 mg TAB PO PRN (08:51)
[2021-05-12 08:56] LABS: % Iron Saturation 19 % (15-55); Iron 41 ug/dL (50-212); Total Iron Binding Capacity 213 mcg/dL (250-450); Transferrin 152 mg/dL (203-362); Unsaturated Iron Binding 172 ug/dL
[2021-05-12] MEDS ORDERED: Isosorbide Mononit ER 30mg TAB PO SCH (09:00)
[2021-05-12] MEDS ORDERED: Potassium Chlor 20 meq TAB.ER PO SCH (09:00)
[2021-05-12] MEDS ORDERED: Morphine ER 30 mg TAB ** extended release PO SCH (09:00)
[2021-05-12] MEDS ORDERED: SPIRIVA Respimat (tiotropium) 2.5 mcg/inh Inhaler INH SCH (09:00)
[2021-05-12] MEDS ORDERED: Insulin GLARGINE 100 un/ml 10 ml VIAL SUBCUT SCH (09:00)
[2021-05-12] MEDS ORDERED: Aspirin EC 81 mg TAB.EC (enteric coated) PO SCH (09:00)
[2021-05-12 09:15] LABS: Ferritin 166.3 ng/mL (24-336)
[2021-05-12 09:19] LABS: Folate > 20.00 ng/mL (5.90-24.80)
[2021-05-12 09:20] LABS: Vitamin B12 852 pg/mL (180-914)
[2021-05-12 11:15] VITALS: BP 113/64
[2021-05-13] MEDS ORDERED: DULoxetine DR 60 mg CAP PO SCH (09:00)
== END 2021-05-12 14:05 | DRG 861 ==
LOC: ED 13:47 → EDHOLD 18:01 → MED 21:10
PROVIDERS: ADMIT Internal Medicine; ATTEND Internal Medicine

== ENCOUNTER 2021-10-24 16:00 | Inpatient (IN) ==
[2021-10-24 16:46] LABS: ABS Basophils 0.1 10^3/ul (0-0.2); ABS Eosinophils 0.2 10^3/ul (0-0.6); ABS Lymphocytes 0.4 10^3/ul (1.0-4.8); ABS Monocytes 0.7 10^3/ul (0-0.8); ABS Neutrophils 6.9 10^3/ul (1.5-7.7); Hematocrit 29 % (42-52); Hemoglobin 9.1 g/dL (14.0-18.0); Lymphocyte % 5.1 %; Mean Corpuscular HGB Conc 32 g/dL (31-36); Mean Corpuscular Hemoglobin 28 pg (27-31); Mean Corpuscular Volume 89 fL (80-94); Mean Platelet Volume 8.1 fL (7.4-10.4); Platelet Count 182 10^3/uL (150-450); Red Cell Distribution Width 17 % (10-15); White Blood Count 8.2 10^3/uL (3.5-10.8)
[2021-10-24 17:37] LABS: INR 1.44 (0.89-1.11)
[2021-10-24 17:39] LABS: Albumin 3.2 g/dL (3.2-5.2); Albumin/Globulin Ratio 1.3 (1-3); Calcium 8.6 mg/dL (8.6-10.3); Globulin 2.5 g/dL (2-4); Potassium 4.4 mmol/L (3.5-5.0); Total Bilirubin 0.9 mg/dL (0.2-1.0); Total Protein 5.7 g/dL (6.4-8.9); eGFR CKD-EPI 50.1 (>60)
[2021-10-24 18:49] LABS: High Sensitivity Troponin 1 Hr 19 pg/mL (<20)
[2021-10-24] MEDS ORDERED: Al Hydrox/Mg Hydrox/Simet LIQ 30 ML UDC PO ONE (23:15)
[2021-10-24 23:34] LABS: Magnesium 1.6 mg/dL (1.9-2.7)
[2021-10-25] MEDS ORDERED: Magnesium Sulfate 2 gm BAG 2 GM/50 ML BAG IVPB ONE (01:05)
[2021-10-25] MEDS ORDERED: Calcium Carb (TUMS) 500 mg CHEW TAB PO PRN (01:10)
[2021-10-25] MEDS ORDERED: Dextrose 50% Syringe 50 ml 25 GM/50 ML SYRINGE IV PUSH PRN (01:45)
[2021-10-25 02:03] LABS: C Reactive Protein 74.36 mg/L (<8.01)
[2021-10-25] MEDS: Albuterol HFA INHALER 8 gm MDI INH PRN (06:26)
[2021-10-25 06:35] LABS: ABS Basophils 0.1 10^3/ul (0-0.2); ABS Eosinophils 0.1 10^3/ul (0-0.6); ABS Lymphocytes 0.3 10^3/ul (1.0-4.8); ABS Monocytes 0.9 10^3/ul (0-0.8); ABS Neutrophils 8.8 10^3/ul (1.5-7.7); Eosinophil % 1.1 %; Hematocrit 29 % (42-52); Lymphocyte % 2.5 %; Mean Corpuscular HGB Conc 35 g/dL (31-36); Mean Corpuscular Hemoglobin 31 pg (27-31); Mean Corpuscular Volume 89 fL (80-94); Mean Platelet Volume 8.4 fL (7.4-10.4); Platelet Count 183 10^3/uL (150-450); Red Blood Count 3.26 10^6 /uL (4.18-5.48); Red Cell Distribution Width 17 % (10-15); White Blood Count 10.1 10^3/uL (3.5-10.8)
[2021-10-25 07:14] LABS: Calcium 8.9 mg/dL (8.6-10.3); Potassium 4.1 mmol/L (3.5-5.0); eGFR CKD-EPI 51.3 (>60)
[2021-10-25] MEDS: ceFAZolin 1 GM ADVAN 1 GM in NS 0.9% 50 ML 50 ML IVPB SCH ×3 (07:30→22:41)
[2021-10-25] MEDS: Mometasone/Formoter 200/5 MDI INH SCH ×2 (08:07→20:58)
[2021-10-25] MEDS: SPIRIVA Respimat (tiotropium) 2.5 mcg/inh Inhaler INH SCH (08:07)
[2021-10-25] MEDS ORDERED: cefTRIAXone 1 gm/50 mL D5W 1 GM/50 ML BAG IV SCH (09:00)
[2021-10-25] MEDS: Aspirin EC 81 mg TAB.EC (enteric coated) PO SCH (10:32)
[2021-10-25] MEDS: Morphine ER 30 mg TAB ** extended release PO SCH ×2 (10:32→20:13)
[2021-10-25] MEDS: DULoxetine DR 60 mg CAP PO SCH (10:33)
[2021-10-25] MEDS: Insulin GLARGINE 100 un/ml 10 ml VIAL SUBCUT SCH ×2 (10:47→12:11)
[2021-10-25] MEDS: CMCS: Meloxicam 7.5 mg TAB (NF) PO SCH (10:55)
[2021-10-25] MEDS ORDERED: Furosemide 40 mg/4 ml IV VIAL IV ONE ×2 (11:03→21:11)
[2021-10-25 11:49] LABS: Ferritin 157.8 ng/mL (24-336)
[2021-10-25] MEDS ORDERED: Perflutren Lipid Microsphere 3 ML VIAL ONE (15:06)
[2021-10-26 02:29] LABS: Venous Bicarbonate HCO3 29.2 mmol/L (24-28)
[2021-10-26 02:36] LABS: PCO2 Arterial 41 mmHg (35-45)
[2021-10-26 02:37] LABS: PO2 Arterial 61 mmHg (80-100)
[2021-10-26 05:56] LABS: Blood Urea Nitrogen 34 mg/dL (6-24); CO2 Carbon Dioxide 30 mmol/L (22-32); Calcium 8.7 mg/dL (8.6-10.3); Chloride 101 mmol/L (101-111); Glucose 320 mg/dL (70-100); Sodium 130 mmol/L (135-145); eGFR CKD-EPI 51.7 (>60)
[2021-10-26] MEDS: ceFAZolin 1 GM ADVAN 1 GM in NS 0.9% 50 ML 50 ML IVPB SCH ×3 (06:14→22:38)
[2021-10-26] MEDS: Mometasone/Formoter 200/5 MDI INH SCH ×2 (07:09→20:03)
[2021-10-26] MEDS: Albuterol HFA INHALER 8 gm MDI INH PRN (07:10)
[2021-10-26] MEDS: SPIRIVA Respimat (tiotropium) 2.5 mcg/inh Inhaler INH SCH (07:10)
[2021-10-26] MEDS ORDERED: Insulin GLARGINE 100 un/ml 10 ml VIAL SUBCUT SCH (09:00)
[2021-10-26] MEDS: Morphine ER 30 mg TAB ** extended release PO SCH ×2 (09:11→21:09)
[2021-10-26] MEDS: Aspirin EC 81 mg TAB.EC (enteric coated) PO SCH (09:13)
[2021-10-26] MEDS: DULoxetine DR 60 mg CAP PO SCH (09:13)
[2021-10-26] MEDS: CMCS: Meloxicam 7.5 mg TAB (NF) PO SCH (10:28)
[2021-10-26] MEDS ORDERED: Bumetanide IV 0.25 MG/ML 4 ml VIAL (1 mg) SLOW PUSH ONE (14:59)
[2021-10-26] MEDS: Benzocaine/Menthol LOZ PO PRN (23:01)
[2021-10-27] MEDS: ceFAZolin 1 GM ADVAN 1 GM in NS 0.9% 50 ML 50 ML IVPB SCH ×3 (06:17→22:22)
[2021-10-27 07:23] LABS: Calcium 8.5 mg/dL (8.6-10.3); Potassium 4.3 mmol/L (3.5-5.0); eGFR CKD-EPI 52.1 (>60)
[2021-10-27] MEDS ORDERED: Bumetanide IV 0.25 MG/ML 4 ml VIAL (1 mg) SLOW PUSH ONE ×3 (07:32→17:21)
[2021-10-27] MEDS: Mometasone/Formoter 200/5 MDI INH SCH ×2 (07:52→19:00)
[2021-10-27] MEDS: SPIRIVA Respimat (tiotropium) 2.5 mcg/inh Inhaler INH SCH (07:53)
[2021-10-27] MEDS: Insulin GLARGINE 100 un/ml 10 ml VIAL SUBCUT SCH (08:17)
[2021-10-27] MEDS: CMCS: Meloxicam 7.5 mg TAB (NF) PO SCH (08:19)
[2021-10-27] MEDS: Morphine ER 30 mg TAB ** extended release PO SCH ×2 (08:20→20:30)
[2021-10-27] MEDS: Aspirin EC 81 mg TAB.EC (enteric coated) PO SCH (08:20)
[2021-10-27] MEDS: DULoxetine DR 60 mg CAP PO SCH (08:34)
[2021-10-27] MEDS ORDERED: Bumetanide IV 0.25 MG/ML 4 ml VIAL (1 mg) SLOW PUSH SCH (13:00)
[2021-10-27] MEDS: Benzocaine/Menthol LOZ PO PRN (20:39)
[2021-10-27 22:03] LABS: Magnesium 1.9 mg/dL (1.9-2.7)
[2021-10-27 23:22] LABS: High Sensitivity Troponin 1 Hr 18 pg/mL (<20)
[2021-10-28 01:09] LABS: High Sensitivity Troponin 3 Hr 19 pg/mL (<20)
[2021-10-28] MEDS: ceFAZolin 1 GM ADVAN 1 GM in NS 0.9% 50 ML 50 ML IVPB SCH ×2 (06:23→15:08)
[2021-10-28 07:06] LABS: Calcium 8.5 mg/dL (8.6-10.3); eGFR CKD-EPI 57.1 (>60)
[2021-10-28] MEDS: Mometasone/Formoter 200/5 MDI INH SCH ×2 (07:36→19:57)
[2021-10-28] MEDS: SPIRIVA Respimat (tiotropium) 2.5 mcg/inh Inhaler INH SCH (07:37)
[2021-10-28] MEDS ORDERED: Bumetanide IV 0.25 MG/ML 4 ml VIAL (1 mg) SLOW PUSH SCH (08:00)
[2021-10-28 08:10] LABS: ABS Eosinophils 0.2 10^3/ul (0-0.6); ABS Lymphocytes 0.5 10^3/ul (1.0-4.8); ABS Monocytes 0.7 10^3/ul (0-0.8); ABS Neutrophils 5.8 10^3/ul (1.5-7.7); Hematocrit 25 % (42-52); Hemoglobin 8.6 g/dL (14.0-18.0); Lymphocyte % 6.6 %; Mean Corpuscular HGB Conc 35 g/dL (31-36); Mean Corpuscular Hemoglobin 31 pg (27-31); Mean Corpuscular Volume 90 fL (80-94); Mean Platelet Volume 8.4 fL (7.4-10.4); Platelet Count 207 10^3/uL (150-450); Red Blood Count 2.77 10^6 /uL (4.18-5.48); Red Cell Distribution Width 17 % (10-15); White Blood Count 7.3 10^3/uL (3.5-10.8)
[2021-10-28] MEDS: Bumetanide IV 0.25 MG/ML 4 ml VIAL (1 mg) SLOW PUSH SCH ×2 (08:18→23:07)
[2021-10-28] MEDS: Insulin GLARGINE 100 un/ml 10 ml VIAL SUBCUT SCH (08:18)
[2021-10-28] MEDS: Morphine ER 30 mg TAB ** extended release PO SCH ×2 (08:19→20:15)
[2021-10-28] MEDS: Aspirin EC 81 mg TAB.EC (enteric coated) PO SCH (08:20)
[2021-10-28] MEDS: CMCS: Meloxicam 7.5 mg TAB (NF) PO SCH (08:37)
[2021-10-28] MEDS: DULoxetine DR 60 mg CAP PO SCH (08:37)
[2021-10-28] MEDS ORDERED: Insulin GLARGINE 100 un/ml 10 ml VIAL SUBCUT ONE (10:02)
[2021-10-28] MEDS ORDERED: Bumetanide IV 0.25 MG/ML 4 ml VIAL (1 mg) SLOW PUSH ONE ×2 (12:00→16:00)
[2021-10-28 12:15] LABS: Rapid COVID-19 Molecular Undetected (Undetected)
[2021-10-28 15:37] LABS: C Reactive Protein 113.56 mg/L (<8.01)
[2021-10-28] MEDS: cefTRIAXone 1 gm/50 mL D5W 1 GM/50 ML BAG IV SCH (23:07)
[2021-10-29 06:01] LABS: ABS Eosinophils 0.2 10^3/ul (0-0.6); ABS Lymphocytes 0.4 10^3/ul (1.0-4.8); ABS Monocytes 0.6 10^3/ul (0-0.8); Eosinophil % 2.3 %; Hematocrit 27 % (42-52); Lymphocyte % 5.2 %; Mean Corpuscular HGB Conc 34 g/dL (31-36); Mean Corpuscular Hemoglobin 30 pg (27-31); Mean Corpuscular Volume 90 fL (80-94); Mean Platelet Volume 7.7 fL (7.4-10.4); Platelet Count 216 10^3/uL (150-450); Red Blood Count 2.99 10^6 /uL (4.18-5.48); Red Cell Distribution Width 17 % (10-15); White Blood Count 7.2 10^3/uL (3.5-10.8)
[2021-10-29 06:23] LABS: Calcium 8.7 mg/dL (8.6-10.3); Magnesium 1.8 mg/dL (1.9-2.7); eGFR CKD-EPI 62.3 (>60)
[2021-10-29] MEDS: SPIRIVA Respimat (tiotropium) 2.5 mcg/inh Inhaler INH SCH (07:09)
[2021-10-29] MEDS: Mometasone/Formoter 200/5 MDI INH SCH ×2 (07:10→19:17)
[2021-10-29] MEDS: Insulin GLARGINE 100 un/ml 10 ml VIAL SUBCUT SCH (08:18)
[2021-10-29] MEDS: DULoxetine DR 60 mg CAP PO SCH (08:20)
[2021-10-29] MEDS: CMCS: Meloxicam 7.5 mg TAB (NF) PO SCH (08:22)
[2021-10-29] MEDS: Aspirin EC 81 mg TAB.EC (enteric coated) PO SCH (08:22)
[2021-10-29] MEDS: Morphine ER 30 mg TAB ** extended release PO SCH ×2 (08:23→21:36)
[2021-10-29] MEDS: Bumetanide IV 0.25 MG/ML 4 ml VIAL (1 mg) SLOW PUSH SCH ×2 (08:24→21:33)
[2021-10-29] MEDS ORDERED: Bumetanide IV 0.25 MG/ML 4 ml VIAL (1 mg) SLOW PUSH ONE (13:00)
[2021-10-29] MEDS: cefTRIAXone 1 gm/50 mL D5W 1 GM/50 ML BAG IV SCH (21:41)
[2021-10-30 06:20] LABS: Calcium 8.9 mg/dL (8.6-10.3); Magnesium 1.8 mg/dL (1.9-2.7); eGFR CKD-EPI 66.6 (>60)
[2021-10-30] MEDS: Mometasone/Formoter 200/5 MDI INH SCH ×2 (07:18→19:05)
[2021-10-30] MEDS: SPIRIVA Respimat (tiotropium) 2.5 mcg/inh Inhaler INH SCH (07:18)
[2021-10-30] MEDS: Aspirin EC 81 mg TAB.EC (enteric coated) PO SCH (08:19)
[2021-10-30] MEDS: Morphine ER 30 mg TAB ** extended release PO SCH ×2 (08:19→22:29)
[2021-10-30] MEDS: Insulin GLARGINE 100 un/ml 10 ml VIAL SUBCUT SCH (08:21)
[2021-10-30] MEDS ORDERED: Senna TAB 8.6 mg TAB PO PRN (08:34)
[2021-10-30] MEDS: CMCS: Meloxicam 7.5 mg TAB (NF) PO SCH (09:21)
[2021-10-30] MEDS: DULoxetine DR 60 mg CAP PO SCH (09:21)
[2021-10-30] MEDS: Bumetanide IV 0.25 MG/ML 4 ml VIAL (1 mg) SLOW PUSH SCH ×2 (09:21→15:27)
[2021-10-30] MEDS: Polyethylene Glycol 3350 17 GM PACKET PO SCH (09:21)
[2021-10-30] MEDS ORDERED: Magnesium Sulfate IV 3 GM in NS 0.9% 100 ml BAG 100 ML IVPB ONE (15:23)
[2021-10-30] MEDS ORDERED: Magnesium CITRATE LIQ 300 ML BTL PO ONE (15:24)
[2021-10-30] MEDS ORDERED: Dextrose 50% Syringe 50 ml 25 GM/50 ML SYRINGE IV PUSH PRN (15:48)
[2021-10-30] MEDS: cefTRIAXone 1 gm/50 mL D5W 1 GM/50 ML BAG IV SCH (22:33)
[2021-10-31 07:11] LABS: CRP High Sensitivity 77.6 mg/L (<2.00); Calcium 8.7 mg/dL (8.6-10.3); Magnesium 1.8 mg/dL (1.9-2.7); Potassium 3.9 mmol/L (3.5-5.0); eGFR CKD-EPI 61.7 (>60)
[2021-10-31] MEDS: Mometasone/Formoter 200/5 MDI INH SCH ×2 (07:39→19:29)
[2021-10-31] MEDS: SPIRIVA Respimat (tiotropium) 2.5 mcg/inh Inhaler INH SCH (07:40)
[2021-10-31] MEDS ORDERED: Magnesium Sulfate IV 3 GM in NS 0.9% 100 ml BAG 100 ML IVPB ONE (08:00)
[2021-10-31] MEDS: Insulin GLARGINE 100 un/ml 10 ml VIAL SUBCUT SCH (08:26)
[2021-10-31] MEDS: DULoxetine DR 60 mg CAP PO SCH (08:29)
[2021-10-31] MEDS: Morphine ER 30 mg TAB ** extended release PO SCH ×2 (08:29→20:30)
[2021-10-31] MEDS: Aspirin EC 81 mg TAB.EC (enteric coated) PO SCH (08:30)
[2021-10-31] MEDS: CMCS: Meloxicam 7.5 mg TAB (NF) PO SCH (08:30)
[2021-10-31] MEDS: Polyethylene Glycol 3350 17 GM PACKET PO SCH (08:31)
[2021-10-31] MEDS: Bumetanide IV 0.25 MG/ML 4 ml VIAL (1 mg) SLOW PUSH SCH ×2 (08:51→15:06)
[2021-10-31] MEDS: cefTRIAXone 1 gm/50 mL D5W 1 GM/50 ML BAG IV SCH (20:28)
[2021-11-01 06:29] LABS: ABS Eosinophils 0.3 10^3/ul (0-0.6); ABS Lymphocytes 0.7 10^3/ul (1.0-4.8); ABS Monocytes 0.4 10^3/ul (0-0.8); ABS Neutrophils 5.4 10^3/ul (1.5-7.7); Eosinophil % 4.8 %; Hematocrit 25 % (42-52); Hemoglobin 8.2 g/dL (14.0-18.0); Lymphocyte % 9.8 %; Mean Corpuscular HGB Conc 33 g/dL (31-36); Mean Corpuscular Hemoglobin 30 pg (27-31); Mean Corpuscular Volume 90 fL (80-94); Mean Platelet Volume 7.7 fL (7.4-10.4); Platelet Count 238 10^3/uL (150-450); Red Blood Count 2.77 10^6 /uL (4.18-5.48); Red Cell Distribution Width 17 % (10-15); White Blood Count 6.9 10^3/uL (3.5-10.8)
[2021-11-01] MEDS: SPIRIVA Respimat (tiotropium) 2.5 mcg/inh Inhaler INH SCH (07:27)
[2021-11-01] MEDS: Mometasone/Formoter 200/5 MDI INH SCH (07:27)
[2021-11-01] MEDS: Polyethylene Glycol 3350 17 GM PACKET PO SCH (10:08)
[2021-11-01] MEDS: Insulin GLARGINE 100 un/ml 10 ml VIAL SUBCUT SCH (10:08)
[2021-11-01] MEDS: Morphine ER 30 mg TAB ** extended release PO SCH (10:09)
[2021-11-01] MEDS: Aspirin EC 81 mg TAB.EC (enteric coated) PO SCH (10:09)
[2021-11-01] MEDS: DULoxetine DR 60 mg CAP PO SCH (10:17)
[2021-11-01] MEDS: CMCS: Meloxicam 7.5 mg TAB (NF) PO SCH (10:17)
[2021-11-01] MEDS: Bumetanide IV 0.25 MG/ML 4 ml VIAL (1 mg) SLOW PUSH SCH (10:17)
[2021-11-01 13:50] VITALS: BP 148/47
== END 2021-11-01 16:48 | DRG 194 ==
LOC: ED 16:00 → EDHOLD 16:00 → SUATTDRO 23:13 → MEDTELE 10-25 01:38
PROVIDERS: ADMIT Internal Medicine; ATTEND Internal Medicine

== ENCOUNTER 2021-12-19 13:08 | Inpatient (IN) ==
[2021-12-19] MEDS ORDERED: Piperacillin/Tazobac ADVAN 3.375 GM in NS 0.9% 100 ml BAG 100 ML IV ONE (13:19)
[2021-12-19 13:44] LABS: ABS Basophils 0.1 10^3/ul (0-0.2); ABS Eosinophils 1.2 10^3/ul (0-0.6); ABS Lymphocytes 0.8 10^3/ul (1.0-4.8); ABS Monocytes 1.1 10^3/ul (0-0.8); ABS Neutrophils 8.1 10^3/ul (1.5-7.7); Eosinophil % 10.8 %; Hematocrit 29 % (42-52); Hemoglobin 9.1 g/dL (14.0-18.0); Lymphocyte % 7.4 %; Mean Corpuscular HGB Conc 32 g/dL (31-36); Mean Corpuscular Hemoglobin 29 pg (27-31); Mean Corpuscular Volume 90 fL (80-94); Platelet Count 298 10^3/uL (150-450); Red Blood Count 3.19 10^6 /uL (4.18-5.48); Red Cell Distribution Width 18 % (10-15); White Blood Count 11.3 10^3/uL (3.5-10.8)
[2021-12-19 14:29] LABS: ALT 5 U/L (7-52); Albumin 3.5 g/dL (3.2-5.2); Albumin/Globulin Ratio 0.9 (1-3); Alkaline Phosphatase 62 U/L (35-149); Blood Urea Nitrogen 86 mg/dL (6-24); CO2 Carbon Dioxide 30 mmol/L (22-32); CRP High Sensitivity 49.58 mg/L (<2.00); Calcium 9.8 mg/dL (8.6-10.3); Chloride 92 mmol/L (101-111); Globulin 3.7 g/dL (2-4); Glucose 258 mg/dL (70-100); Sodium 133 mmol/L (135-145); Total Protein 7.2 g/dL (6.4-8.9); eGFR CKD-EPI 31.4 (>60)
[2021-12-19 14:35] LABS: Anion Gap 11 mmol/L (2-11)
[2021-12-19 15:58] LABS: Potassium Redraw 4.6 mmol/L (3.5-5.0)
[2021-12-19] MEDS ORDERED: Albuterol HFA INHALER 8 gm MDI INH PRN (17:27)
[2021-12-19] MEDS ORDERED: Gadoteridol (CONTRAST) 279.3 MG/ML 10 ML IV ONE (17:32)
[2021-12-19] MEDS: SPIRIVA Respimat (tiotropium) 2.5 mcg/inh Inhaler INH SCH (18:12)
[2021-12-19] MEDS: Mometasone/Formoter 200/5 MDI INH SCH (18:58)
[2021-12-19] MEDS ORDERED: Cefepime 2 GM in Dextrose 2 GM/50 ML BAG IV SCH (19:00)
[2021-12-19] MEDS ORDERED: Vancomycin per Pharmacy 1 EA NOTE FOLLOW UP SCH ×2 (19:00→20:00)
[2021-12-19] MEDS ORDERED: Vancomycin 1,500 MG in NS 0.9% 250 ml 250 ML IVPB ONE (20:00)
[2021-12-19] MEDS: Cefepime 2 GM in Dextrose 2 GM/50 ML BAG IV SCH (21:44)
[2021-12-19] MEDS: Insulin GLARGINE 100 un/ml 10 ml VIAL SUBCUT SCH (21:45)
[2021-12-20] MEDS: metroNIDAZOLE IV 500 MG/100ML 500 MG/100 ML BAG IVPB SCH ×4 (00:07→21:18)
[2021-12-20] MEDS ORDERED: Ondansetron 4 mg VIAL 2 MG/ML 2 ml VIAL IV ONE (04:58)
[2021-12-20 05:00] LABS: Urine Appearance Clear; Urine Bilirubin Negative (Negative); Urine Blood Negative (Negative); Urine Color Straw; Urine Glucose Negative (Negative); Urine Ketones Negative (Negative); Urine Nitrite Negative (Negative); Urine Protein Negative (Negative); Urine Specific Gravity 1.008 (1.002-1.030); Urine Urobilinogen Negative (Negative)
[2021-12-20 06:31] LABS: ABS Basophils 0.1 10^3/ul (0-0.2); ABS Eosinophils 1.4 10^3/ul (0-0.6); ABS Lymphocytes 0.9 10^3/ul (1.0-4.8); ABS Monocytes 1.1 10^3/ul (0-0.8); ABS Neutrophils 8.2 10^3/ul (1.5-7.7); Hematocrit 29 % (42-52); Hemoglobin 9.2 g/dL (14.0-18.0); Lymphocyte % 7.4 %; Mean Corpuscular HGB Conc 32 g/dL (31-36); Mean Corpuscular Hemoglobin 29 pg (27-31); Mean Corpuscular Volume 91 fL (80-94); Platelet Count 304 10^3/uL (150-450); Red Blood Count 3.14 10^6 /uL (4.18-5.48); Red Cell Distribution Width 18 % (10-15); White Blood Count 11.7 10^3/uL (3.5-10.8)
[2021-12-20 06:50] LABS: Calcium 9.7 mg/dL (8.6-10.3); Potassium 4.6 mmol/L (3.5-5.0); eGFR CKD-EPI 27.7 (>60)
[2021-12-20] MEDS: Cefepime 2 GM in Dextrose 2 GM/50 ML BAG IV SCH ×2 (08:18→20:09)
[2021-12-20] MEDS ORDERED: Buffered Lidocaine 1% SYRIN 1 ml INTRADERM ONE (08:46)
[2021-12-20] MEDS ORDERED: Naloxone 0.4 mg VIAL 0.4 mg/ml 1 ml VIAL IV PRN (08:47)
[2021-12-20] MEDS ORDERED: fentaNYL 100 mcg/2 ml 50 MCG/ML VIAL IV PRN (08:47)
[2021-12-20] MEDS ORDERED: Ondansetron 4 mg VIAL 2 MG/ML 2 ml VIAL IV PRN (08:47)
[2021-12-20] MEDS: Mometasone/Formoter 200/5 MDI INH SCH ×2 (08:53→19:48)
[2021-12-20] MEDS: SPIRIVA Respimat (tiotropium) 2.5 mcg/inh Inhaler INH SCH (08:55)
[2021-12-20] MEDS ORDERED: Isosorbide Mononit ER 30mg TAB PO SCH (09:00)
[2021-12-20] MEDS ORDERED: Lactated Ringers 1000 ml BAG 1,000 ML IV SCH (09:00)
[2021-12-20] MEDS ORDERED: Midazolam 2 mg/2 ml VIAL 1 mg/ml 2 ml VIAL (2 mg) ONE (09:54)
[2021-12-20] MEDS ORDERED: Lidocaine 2% PF 5 ML VIAL ONE (09:54)
[2021-12-20] MEDS ORDERED: Bupivacaine 0.25% SDV 30 ML ONE (10:25)
[2021-12-20] MEDS ORDERED: fentaNYL 100 mcg/2 ml 50 MCG/ML VIAL ONE (10:53)
[2021-12-20] MEDS ORDERED: Propofol 10 MG/ML 20 ML BTL ONE (10:57)
[2021-12-20] MEDS ORDERED: Acetaminophen IV 1 GM/100ML 1,000 MG/100 ML BAG IV ONE (11:19)
[2021-12-20] MEDS ORDERED: Aspirin EC 81 mg TAB.EC (enteric coated) PO SCH (15:00)
[2021-12-20] MEDS: Insulin GLARGINE 100 un/ml 10 ml VIAL SUBCUT SCH (21:21)
[2021-12-20] MEDS ORDERED: Albuterol/Ipratropium NEB.SOL (2.5/0.5 MG) 3 ML NEB.SOLN INH ONE (22:51)
[2021-12-20] MEDS: Vancomycin 1,500 MG in NS 0.9% 250 ml 250 ML IVPB SCH (22:53)
[2021-12-21 05:12] LABS: ABS Basophils 0.1 10^3/ul (0-0.2); ABS Lymphocytes 0.8 10^3/ul (1.0-4.8); ABS Monocytes 1.3 10^3/ul (0-0.8); ABS Neutrophils 9.9 10^3/ul (1.5-7.7); Eosinophil % 7.3 %; Hematocrit 27 % (42-52); Hemoglobin 8.7 g/dL (14.0-18.0); Lymphocyte % 6.3 %; Mean Corpuscular HGB Conc 32 g/dL (31-36); Mean Corpuscular Hemoglobin 29 pg (27-31); Mean Corpuscular Volume 91 fL (80-94); Mean Platelet Volume 8.1 fL (7.4-10.4); Platelet Count 282 10^3/uL (150-450); Red Blood Count 2.96 10^6 /uL (4.18-5.48); Red Cell Distribution Width 18 % (10-15); White Blood Count 13.1 10^3/uL (3.5-10.8)
[2021-12-21] MEDS: metroNIDAZOLE IV 500 MG/100ML 500 MG/100 ML BAG IVPB SCH ×3 (05:21→21:45)
[2021-12-21 05:26] LABS: Calcium 9.3 mg/dL (8.6-10.3); Potassium 3.9 mmol/L (3.5-5.0); eGFR CKD-EPI 32.5 (>60)
[2021-12-21] MEDS ORDERED: oxyCODONE SR 10 mg TAB PO ONE (06:00)
[2021-12-21] MEDS: Mometasone/Formoter 200/5 MDI INH SCH ×2 (08:30→19:08)
[2021-12-21] MEDS: SPIRIVA Respimat (tiotropium) 2.5 mcg/inh Inhaler INH SCH (08:33)
[2021-12-21] MEDS: Aspirin EC 81 mg TAB.EC (enteric coated) PO SCH (10:10)
[2021-12-21] MEDS: Cefepime 2 GM in Dextrose 2 GM/50 ML BAG IV SCH ×2 (10:10→20:21)
[2021-12-21] MEDS ORDERED: Acetaminophen IV 1 GM/100ML 1,000 MG/100 ML BAG IV PRN (13:52)
[2021-12-21] MEDS ORDERED: HYDROmorphone 1 MG/1 ML SYRINGE IV SLOW PU PRN (13:57)
[2021-12-21 17:30] LABS: ABS Basophils 0.1 10^3/ul (0-0.2); ABS Eosinophils 0.4 10^3/ul (0-0.6); ABS Lymphocytes 0.7 10^3/ul (1.0-4.8); ABS Monocytes 1.1 10^3/ul (0-0.8); ABS Neutrophils 8.7 10^3/ul (1.5-7.7); Eosinophil % 3.9 %; Hematocrit 29 % (42-52); Hemoglobin 9.1 g/dL (14.0-18.0); Lymphocyte % 6.5 %; Mean Corpuscular HGB Conc 31 g/dL (31-36); Mean Corpuscular Hemoglobin 29 pg (27-31); Mean Corpuscular Volume 91 fL (80-94); Mean Platelet Volume 8.2 fL (7.4-10.4); Platelet Count 288 10^3/uL (150-450); Red Blood Count 3.19 10^6 /uL (4.18-5.48); Red Cell Distribution Width 18 % (10-15); White Blood Count 11.1 10^3/uL (3.5-10.8)
[2021-12-21 18:13] LABS: Calcium 9.1 mg/dL (8.6-10.3); Potassium 3.9 mmol/L (3.5-5.0); eGFR CKD-EPI 30.7 (>60)
[2021-12-21] MEDS: Insulin GLARGINE 100 un/ml 10 ml VIAL SUBCUT SCH (20:43)
[2021-12-21] MEDS: Vancomycin 1,500 MG in NS 0.9% 250 ml 250 ML IVPB SCH (23:40)
[2021-12-22] MEDS: metroNIDAZOLE IV 500 MG/100ML 500 MG/100 ML BAG IVPB SCH ×3 (06:13→21:59)
[2021-12-22 07:02] LABS: ABS Basophils 0.1 10^3/ul (0-0.2); ABS Eosinophils 0.7 10^3/ul (0-0.6); ABS Lymphocytes 0.8 10^3/ul (1.0-4.8); ABS Neutrophils 6.7 10^3/ul (1.5-7.7); Eosinophil % 7.7 %; Hematocrit 27 % (42-52); Hemoglobin 8.7 g/dL (14.0-18.0); Mean Corpuscular HGB Conc 32 g/dL (31-36); Mean Corpuscular Hemoglobin 29 pg (27-31); Mean Corpuscular Volume 91 fL (80-94); Mean Platelet Volume 7.8 fL (7.4-10.4); Platelet Count 278 10^3/uL (150-450); Red Blood Count 2.98 10^6 /uL (4.18-5.48); Red Cell Distribution Width 18 % (10-15); White Blood Count 9.4 10^3/uL (3.5-10.8)
[2021-12-22] MEDS: Mometasone/Formoter 200/5 MDI INH SCH ×2 (07:30→19:21)
[2021-12-22] MEDS: SPIRIVA Respimat (tiotropium) 2.5 mcg/inh Inhaler INH SCH (07:39)
[2021-12-22 08:41] LABS: Calcium 9.2 mg/dL (8.6-10.3); eGFR CKD-EPI 29.9 (>60)
[2021-12-22] MEDS: Aspirin EC 81 mg TAB.EC (enteric coated) PO SCH (09:03)
[2021-12-22] MEDS: Cefepime 2 GM in Dextrose 2 GM/50 ML BAG IV SCH ×2 (09:03→20:03)
[2021-12-22] MEDS: HYDROmorphone 1 MG/1 ML SYRINGE IV SLOW PU PRN ×2 (14:48→22:59)
[2021-12-22] MEDS ORDERED: Vancomycin Trough Check NOTE FOLLOW UP ONE (22:30)
[2021-12-22] MEDS: Insulin GLARGINE 100 un/ml 10 ml VIAL SUBCUT SCH (22:46)
[2021-12-22] MEDS: Ondansetron 4 mg VIAL 2 MG/ML 2 ml VIAL IV PRN (23:00)
[2021-12-23] MEDS: Vancomycin 1,250 MG in NS 0.9% 250 ml 250 ML IVPB SCH (00:07)
[2021-12-23] MEDS: metroNIDAZOLE IV 500 MG/100ML 500 MG/100 ML BAG IVPB SCH ×3 (05:32→23:17)
[2021-12-23] MEDS: HYDROmorphone 1 MG/1 ML SYRINGE IV SLOW PU PRN (05:32)
[2021-12-23 06:13] LABS: ABS Basophils 0.1 10^3/ul (0-0.2); ABS Eosinophils 0.8 10^3/ul (0-0.6); ABS Neutrophils 7.1 10^3/ul (1.5-7.7); Eosinophil % 8.3 %; Hematocrit 26 % (42-52); Hemoglobin 8.1 g/dL (14.0-18.0); Lymphocyte % 10.4 %; Mean Corpuscular HGB Conc 32 g/dL (31-36); Mean Corpuscular Hemoglobin 29 pg (27-31); Mean Corpuscular Volume 92 fL (80-94); Mean Platelet Volume 8.3 fL (7.4-10.4); Platelet Count 275 10^3/uL (150-450); Red Blood Count 2.78 10^6 /uL (4.18-5.48); Red Cell Distribution Width 19 % (10-15); White Blood Count 10.1 10^3/uL (3.5-10.8)
[2021-12-23 06:34] LABS: Calcium 8.9 mg/dL (8.6-10.3); Potassium 3.7 mmol/L (3.5-5.0); eGFR CKD-EPI 32.2 (>60)
[2021-12-23] MEDS: SPIRIVA Respimat (tiotropium) 2.5 mcg/inh Inhaler INH SCH (07:32)
[2021-12-23] MEDS: Mometasone/Formoter 200/5 MDI INH SCH ×2 (07:32→19:55)
[2021-12-23] MEDS: Cefepime 2 GM in Dextrose 2 GM/50 ML BAG IV SCH ×2 (08:53→19:15)
[2021-12-23] MEDS: Aspirin EC 81 mg TAB.EC (enteric coated) PO SCH (08:55)
[2021-12-23] MEDS: Insulin GLARGINE 100 un/ml 10 ml VIAL SUBCUT SCH ×2 (09:47→21:48)
[2021-12-23] MEDS: Vancomycin 1,500 MG in NS 0.9% 250 ml 250 ML IVPB SCH (10:11)
[2021-12-24] MEDS: Vancomycin 1,250 MG in NS 0.9% 250 ml 250 ML IVPB SCH (00:25)
[2021-12-24 04:51] LABS: ABS Basophils 0.1 10^3/ul (0-0.2); ABS Eosinophils 0.9 10^3/ul (0-0.6); ABS Monocytes 0.9 10^3/ul (0-0.8); ABS Neutrophils 8.3 10^3/ul (1.5-7.7); Eosinophil % 8.2 %; Hematocrit 24 % (42-52); Hemoglobin 7.5 g/dL (14.0-18.0); Lymphocyte % 8.8 %; Mean Corpuscular HGB Conc 31 g/dL (31-36); Mean Corpuscular Hemoglobin 28 pg (27-31); Mean Corpuscular Volume 91 fL (80-94); Mean Platelet Volume 8.1 fL (7.4-10.4); Platelet Count 283 10^3/uL (150-450); Red Blood Count 2.64 10^6 /uL (4.18-5.48); Red Cell Distribution Width 18 % (10-15); White Blood Count 11.2 10^3/uL (3.5-10.8)
[2021-12-24] MEDS: metroNIDAZOLE IV 500 MG/100ML 500 MG/100 ML BAG IVPB SCH ×3 (05:01→22:24)
[2021-12-24 05:06] LABS: Calcium 8.5 mg/dL (8.6-10.3); Magnesium 1.5 mg/dL (1.9-2.7); Potassium 3.5 mmol/L (3.5-5.0); eGFR CKD-EPI 32.7 (>60)
[2021-12-24] MEDS: SPIRIVA Respimat (tiotropium) 2.5 mcg/inh Inhaler INH SCH (07:19)
[2021-12-24] MEDS: Mometasone/Formoter 200/5 MDI INH SCH ×2 (07:19→20:05)
[2021-12-24] MEDS ORDERED: Magnesium Sulfate 2 gm BAG 2 GM/50 ML BAG IVPB ONE (07:39)
[2021-12-24] MEDS: HYDROmorphone 1 MG/1 ML SYRINGE IV SLOW PU PRN (08:10)
[2021-12-24] MEDS: Cefepime 2 GM in Dextrose 2 GM/50 ML BAG IV SCH (08:39)
[2021-12-24] MEDS: Aspirin EC 81 mg TAB.EC (enteric coated) PO SCH (11:07)
[2021-12-24 15:04] LABS: Hematocrit 23 % (42-52); Hemoglobin 7.1 g/dL (14.0-18.0)
[2021-12-24] MEDS: Ondansetron 4 mg VIAL 2 MG/ML 2 ml VIAL IV PRN (15:45)
[2021-12-24] MEDS: cefTRIAXone 2 gm/50 mL D5W 2 GM/50 ML BAG IV SCH (20:39)
[2021-12-24] MEDS: Insulin GLARGINE 100 un/ml 10 ml VIAL SUBCUT SCH (21:07)
[2021-12-24 21:53] LABS: Hematocrit 24 % (42-52); Hemoglobin 7.5 g/dL (14.0-18.0)
[2021-12-25] MEDS: Vancomycin 1,250 MG in NS 0.9% 250 ml 250 ML IVPB SCH (00:01)
[2021-12-25] MEDS: Ondansetron 4 mg VIAL 2 MG/ML 2 ml VIAL IV PRN (00:58)
[2021-12-25] MEDS: metroNIDAZOLE IV 500 MG/100ML 500 MG/100 ML BAG IVPB SCH ×3 (05:43→23:00)
[2021-12-25 06:49] LABS: ABS Basophils 0.1 10^3/ul (0-0.2); ABS Eosinophils 0.9 10^3/ul (0-0.6); ABS Lymphocytes 1.1 10^3/ul (1.0-4.8); ABS Neutrophils 8.5 10^3/ul (1.5-7.7); Eosinophil % 7.7 %; Hematocrit 29 % (42-52); Hemoglobin 9.3 g/dL (14.0-18.0); Lymphocyte % 9.7 %; Mean Corpuscular HGB Conc 33 g/dL (31-36); Mean Corpuscular Hemoglobin 29 pg (27-31); Mean Corpuscular Volume 88 fL (80-94); Mean Platelet Volume 8.4 fL (7.4-10.4); Platelet Count 261 10^3/uL (150-450); Red Blood Count 3.23 10^6 /uL (4.18-5.48); Red Cell Distribution Width 20 % (10-15); White Blood Count 11.7 10^3/uL (3.5-10.8)
[2021-12-25 07:01] LABS: Calcium 8.7 mg/dL (8.6-10.3); Potassium 3.5 mmol/L (3.5-5.0)
[2021-12-25] MEDS: Mometasone/Formoter 200/5 MDI INH SCH ×2 (07:42→20:16)
[2021-12-25] MEDS: SPIRIVA Respimat (tiotropium) 2.5 mcg/inh Inhaler INH SCH (07:42)
[2021-12-25] MEDS ORDERED: Potassium Chlor 20 meq TAB.ER PO ONE (07:59)
[2021-12-25] MEDS: HYDROmorphone 1 MG/1 ML SYRINGE IV SLOW PU PRN (16:46)
[2021-12-25] MEDS: cefTRIAXone 2 gm/50 mL D5W 2 GM/50 ML BAG IV SCH (22:20)
[2021-12-25] MEDS: Insulin GLARGINE 100 un/ml 10 ml VIAL SUBCUT SCH (22:28)
[2021-12-25] MEDS ORDERED: Vancomycin Trough Check NOTE FOLLOW UP ONE (23:00)
[2021-12-26] MEDS: Vancomycin 1,250 MG in NS 0.9% 250 ml 250 ML IVPB SCH ×2 (00:35→15:17)
[2021-12-26] MEDS: metroNIDAZOLE IV 500 MG/100ML 500 MG/100 ML BAG IVPB SCH ×2 (05:29→13:41)
[2021-12-26 06:33] LABS: ABS Basophils 0.1 10^3/ul (0-0.2); ABS Eosinophils 0.8 10^3/ul (0-0.6); ABS Lymphocytes 1.2 10^3/ul (1.0-4.8); ABS Neutrophils 8.6 10^3/ul (1.5-7.7); Hematocrit 27 % (42-52); Hemoglobin 8.8 g/dL (14.0-18.0); Lymphocyte % 10.3 %; Mean Corpuscular HGB Conc 33 g/dL (31-36); Mean Corpuscular Hemoglobin 29 pg (27-31); Mean Corpuscular Volume 88 fL (80-94); Mean Platelet Volume 8.6 fL (7.4-10.4); Platelet Count 266 10^3/uL (150-450); Red Blood Count 3.04 10^6 /uL (4.18-5.48); Red Cell Distribution Width 21 % (10-15); White Blood Count 11.8 10^3/uL (3.5-10.8)
[2021-12-26 06:47] LABS: Calcium 8.9 mg/dL (8.6-10.3); Magnesium 1.6 mg/dL (1.9-2.7); Potassium 3.5 mmol/L (3.5-5.0); eGFR CKD-EPI 38.2 (>60)
[2021-12-26] MEDS ORDERED: Potassium Chlor 20 meq TAB.ER PO ONE (07:13)
[2021-12-26] MEDS: Mometasone/Formoter 200/5 MDI INH SCH ×2 (07:40→19:18)
[2021-12-26] MEDS: SPIRIVA Respimat (tiotropium) 2.5 mcg/inh Inhaler INH SCH (07:41)
[2021-12-26] MEDS: HYDROmorphone 1 MG/1 ML SYRINGE IV SLOW PU PRN (13:36)
[2021-12-26] MEDS ORDERED: CMCS: Ketorolac 10 mg TAB (NF) PO PRN (14:36)
[2021-12-26] MEDS ORDERED: Meloxicam 7.5 mg TAB (NF) PO PRN (14:49)
[2021-12-26] MEDS: Ondansetron 4 mg VIAL 2 MG/ML 2 ml VIAL IV PRN (18:12)
[2021-12-26] MEDS: cefTRIAXone 2 gm/50 mL D5W 2 GM/50 ML BAG IV SCH (21:21)
[2021-12-26] MEDS: Insulin GLARGINE 100 un/ml 10 ml VIAL SUBCUT SCH (22:33)
[2021-12-27 06:23] LABS: Hematocrit 27 % (42-52); Hemoglobin 8.7 g/dL (14.0-18.0); Mean Corpuscular HGB Conc 32 g/dL (31-36); Mean Corpuscular Hemoglobin 28 pg (27-31); Mean Corpuscular Volume 89 fL (80-94); Mean Platelet Volume 8.4 fL (7.4-10.4); Platelet Count 259 10^3/uL (150-450); Red Blood Count 3.06 10^6 /uL (4.18-5.48); Red Cell Distribution Width 21 % (10-15); White Blood Count 10.2 10^3/uL (3.5-10.8)
[2021-12-27 06:39] LABS: Anion Gap 7 mmol/L (2-11); CO2 Carbon Dioxide 29 mmol/L (22-32); Calcium 8.9 mg/dL (8.6-10.3); Chloride 99 mmol/L (101-111); Magnesium 1.4 mg/dL (1.9-2.7); Potassium 3.7 mmol/L (3.5-5.0); Sodium 135 mmol/L (135-145)
[2021-12-27 06:45] LABS: Blood Urea Nitrogen 84 mg/dL (6-24); Glucose 245 mg/dL (70-100); eGFR CKD-EPI 39.1 (>60)
[2021-12-27] MEDS: SPIRIVA Respimat (tiotropium) 2.5 mcg/inh Inhaler INH SCH (07:20)
[2021-12-27] MEDS: Mometasone/Formoter 200/5 MDI INH SCH ×2 (07:20→19:11)
[2021-12-27] MEDS ORDERED: Magnesium Sulfate IV 3 GM in NS 0.9% 100 ml BAG 100 ML IVPB ONE (08:00)
[2021-12-27] MEDS: CMC: Meloxicam 7.5 mg TAB (NF) PO SCH (11:19)
[2021-12-27 11:53] LABS: Rapid COVID-19 Molecular Undetected (Undetected)
[2021-12-27] MEDS: Vancomycin 1,250 MG in NS 0.9% 250 ml 250 ML IVPB SCH (15:19)
[2021-12-27 18:38] LABS: TSH Ultra Thyroid Stim Horm 17.05 mcIU/mL (0.34-5.60)
[2021-12-27 18:49] LABS: Vitamin B12 474 pg/mL (180-914)
[2021-12-27 18:56] LABS: Vitamin D Total 25(OH) < 7.0 ng/mL (20-50)
[2021-12-27] MEDS ORDERED: Levothyroxine 100 MCG/5 ML VIAL IV ONE (19:06)
[2021-12-27] MEDS: cefTRIAXone 2 gm/50 mL D5W 2 GM/50 ML BAG IV SCH (20:50)
[2021-12-27] MEDS: Insulin GLARGINE 100 un/ml 10 ml VIAL SUBCUT SCH (22:35)
[2021-12-27] MEDS: Ondansetron 4 mg VIAL 2 MG/ML 2 ml VIAL IV PRN (23:48)
[2021-12-28 08:33] LABS: Hematocrit 30 % (42-52); Hemoglobin 9.6 g/dL (14.0-18.0); Mean Corpuscular HGB Conc 32 g/dL (31-36); Mean Corpuscular Hemoglobin 28 pg (27-31); Mean Corpuscular Volume 89 fL (80-94); Mean Platelet Volume 8.3 fL (7.4-10.4); Platelet Count 288 10^3/uL (150-450); Red Blood Count 3.42 10^6 /uL (4.18-5.48); Red Cell Distribution Width 20 % (10-15); White Blood Count 11.3 10^3/uL (3.5-10.8)
[2021-12-28] MEDS: CMC: Meloxicam 7.5 mg TAB (NF) PO SCH (09:09)
[2021-12-28 09:44] LABS: Calcium 9.5 mg/dL (8.6-10.3); Magnesium 1.8 mg/dL (1.9-2.7); Potassium 4.1 mmol/L (3.5-5.0)
[2021-12-28 09:50] LABS: eGFR CKD-EPI 41.7 (>60)
[2021-12-28] MEDS: SPIRIVA Respimat (tiotropium) 2.5 mcg/inh Inhaler INH SCH (10:15)
[2021-12-28] MEDS: Mometasone/Formoter 200/5 MDI INH SCH ×2 (10:15→19:00)
[2021-12-28] MEDS ORDERED: Vancomycin Trough Check NOTE FOLLOW UP ONE (14:30)
[2021-12-28 15:48] LABS: Vancomycin Trough 24.6 mcg/mL; eGFR CKD-EPI 42.9 (>60)
[2021-12-28] MEDS: Vancomycin 1,250 MG in NS 0.9% 250 ml 250 ML IVPB SCH (15:52)
[2021-12-28] MEDS: cefTRIAXone 2 gm/50 mL D5W 2 GM/50 ML BAG IV SCH (19:16)
[2021-12-28] MEDS: Insulin GLARGINE 100 un/ml 10 ml VIAL SUBCUT SCH (21:35)
[2021-12-29] MEDS ORDERED: Vancomycin Random Level NOTE FOLLOW UP ONE (06:00)
[2021-12-29 06:26] LABS: Magnesium 1.6 mg/dL (1.9-2.7)
[2021-12-29 06:31] LABS: Vancomycin Random 18.4 mcg/mL; eGFR CKD-EPI 44.1 (>60)
[2021-12-29] MEDS ORDERED: Magnesium Sulfate IV 3 GM in NS 0.9% 100 ml BAG 100 ML IVPB ONE (07:14)
[2021-12-29] MEDS: CMC: Meloxicam 7.5 mg TAB (NF) PO SCH (08:05)
[2021-12-29] MEDS: Mometasone/Formoter 200/5 MDI INH SCH (09:14)
[2021-12-29] MEDS: SPIRIVA Respimat (tiotropium) 2.5 mcg/inh Inhaler INH SCH (09:14)
[2021-12-29] MEDS ORDERED: Vancomycin 1000 MG in NS 0.9% 250 ML IVPB ONE (14:00)
[2021-12-29 14:59] VITALS: BP 131/70
== END 2021-12-29 16:30 | DRG 305 ==
LOC: ED 13:08 → EDHOLD 13:08 → MED 17:05 → SUATTDRO 12-20 17:05
PROVIDERS: ADMIT Internal Medicine; ATTEND Internal Medicine

== ENCOUNTER 2022-01-14 19:13 | Inpatient (IN) ==
[2022-01-14 19:57] LABS: Venous Bicarbonate HCO3 25.5 mmol/L (24-28)
[2022-01-14 19:58] LABS: Hematocrit 29 % (42-52); Hemoglobin 9.4 g/dL (14.0-18.0); Mean Corpuscular HGB Conc 32 g/dL (31-36); Mean Corpuscular Hemoglobin 31 pg (27-31); Mean Corpuscular Volume 95 fL (80-94); Mean Platelet Volume 8.4 fL (7.4-10.4); Platelet Count 167 10^3/uL (150-450); Red Blood Count 3.06 10^6 /uL (4.18-5.48); Red Cell Distribution Width 20 % (10-15); White Blood Count 7.6 10^3/uL (3.5-10.8)
[2022-01-14 20:37] LABS: Albumin 3.4 g/dL (3.2-5.2); Albumin/Globulin Ratio 1.2 (1-3); Calcium 8.6 mg/dL (8.6-10.3); Globulin 2.8 g/dL (2-4); Total Bilirubin 0.6 mg/dL (0.2-1.0); Total Protein 6.2 g/dL (6.4-8.9); eGFR CKD-EPI 68.8 (>60)
[2022-01-14 20:52] LABS: Potassium 5.3 mmol/L (3.5-5.0)
[2022-01-14] MEDS ORDERED: Furosemide 100 mg/10 ml IV VIAL IV ONE (21:10)
[2022-01-14] MEDS ORDERED: Nitro 2% OINT (Nitroglycerin) 1 INCH/PAK TOPICAL ONE (21:11)
[2022-01-14 21:14] LABS: High Sensitivity Troponin 1 Hr 15 pg/mL (<20)
[2022-01-14 21:29] LABS: ABS Basophils 0.1 10^3/ul (0-0.2); ABS Eosinophils 0.1 10^3/ul (0-0.6); ABS Lymphocytes 0.2 10^3/ul (1.0-4.8); ABS Monocytes 0.3 10^3/ul (0-0.8); ABS Neutrophils 6.9 10^3/ul (1.5-7.7); Eosinophil % 1.6 %; Lymphocyte % 3.1 %
[2022-01-14] MEDS ORDERED: Furosemide IV 100 MG in NS 0.9% 100 ML TOTAL IV SCH (22:00)
[2022-01-14] MEDS ORDERED: Budesonide/Formote 160/4.5(NF) MDI INH SCH (23:45)
[2022-01-14] MEDS ORDERED: Senna TAB 8.6 mg TAB PO PRN (23:52)
[2022-01-14] MEDS ORDERED: Al Hydrox/Mg Hydrox/Simet LIQ 30 ML UDC PO PRN (23:52)
[2022-01-14] MEDS ORDERED: Albuterol HFA INHALER 8 gm MDI INH PRN (23:52)
[2022-01-15] MEDS ORDERED: Vancomycin per Pharmacy 1 EA NOTE FOLLOW UP SCH
[2022-01-15] MEDS ORDERED: Dextrose 50% Syringe 50 ml 25 GM/50 ML SYRINGE IV PUSH PRN ×2 (01:20→10:01)
[2022-01-15] MEDS ORDERED: Insulin GLARGINE 100 un/ml 10 ml VIAL SUBCUT SCH (02:00)
[2022-01-15 03:31] LABS: Calcium 8.6 mg/dL (8.6-10.3); Potassium 4.8 mmol/L (3.5-5.0); eGFR CKD-EPI 71.7 (>60)
[2022-01-15] MEDS ORDERED: Vancomycin 2,000 MG in NS 0.9% 500 ml BAG 500 ML IVPB ONE (06:00)
[2022-01-15 06:10] LABS: ABS Lymphocytes 0.3 10^3/ul (1.0-4.8); ABS Monocytes 0.2 10^3/ul (0-0.8); ABS Neutrophils 6.1 10^3/ul (1.5-7.7); Eosinophil % 0.1 %; Hematocrit 29 % (42-52); Hemoglobin 8.9 g/dL (14.0-18.0); Lymphocyte % 4.8 %; Mean Corpuscular HGB Conc 31 g/dL (31-36); Mean Corpuscular Hemoglobin 29 pg (27-31); Mean Corpuscular Volume 94 fL (80-94); Mean Platelet Volume 8.5 fL (7.4-10.4); Platelet Count 150 10^3/uL (150-450); Red Blood Count 3.04 10^6 /uL (4.18-5.48); Red Cell Distribution Width 20 % (10-15); White Blood Count 6.6 10^3/uL (3.5-10.8)
[2022-01-15 06:24] LABS: Calcium 8.7 mg/dL (8.6-10.3); Potassium 4.8 mmol/L (3.5-5.0); eGFR CKD-EPI 64.9 (>60)
[2022-01-15] MEDS: Mometasone/Formoter 200/5 MDI INH SCH ×2 (07:14→19:14)
[2022-01-15] MEDS: SPIRIVA Respimat (tiotropium) 2.5 mcg/inh Inhaler INH SCH (07:14)
[2022-01-15] MEDS: Aspirin EC 81 mg TAB.EC (enteric coated) PO SCH (08:42)
[2022-01-15] MEDS: Isosorbide Mononit ER 30mg TAB PO SCH (08:42)
[2022-01-15] MEDS: Bumetanide IV 0.25 MG/ML 4 ml VIAL (1 mg) SLOW PUSH SCH ×2 (08:43→21:59)
[2022-01-15] MEDS: Nystatin TOP POWDER 15 GM BTL TOPICAL SCH ×2 (08:44→23:47)
[2022-01-15] MEDS ORDERED: Potassium Chlor 20 meq TAB.ER PO SCH (09:00)
[2022-01-15 10:49] LABS: Ferritin 72.4 ng/mL (24-336)
[2022-01-15] MEDS ORDERED: Iron Sucrose 200 MG in NS 0.9% 100 ml BAG 100 ML IVPB ONE (17:03)
[2022-01-15] MEDS: Vancomycin 1,250 MG in NS 0.9% 250 ml 250 ML IVPB SCH (18:04)
[2022-01-15] MEDS: Insulin GLARGINE 100 un/ml 10 ml VIAL SUBCUT SCH (22:12)
[2022-01-16] MEDS: Vancomycin 1,250 MG in NS 0.9% 250 ml 250 ML IVPB SCH (05:33)
[2022-01-16 06:59] LABS: ABS Eosinophils 0.2 10^3/ul (0-0.6); ABS Lymphocytes 0.8 10^3/ul (1.0-4.8); ABS Monocytes 0.6 10^3/ul (0-0.8); ABS Neutrophils 4.3 10^3/ul (1.5-7.7); Eosinophil % 3.7 %; Hematocrit 29 % (42-52); Hemoglobin 9.2 g/dL (14.0-18.0); Lymphocyte % 13.9 %; Mean Corpuscular HGB Conc 32 g/dL (31-36); Mean Corpuscular Hemoglobin 30 pg (27-31); Mean Corpuscular Volume 95 fL (80-94); Mean Platelet Volume 8.5 fL (7.4-10.4); Platelet Count 175 10^3/uL (150-450); Red Blood Count 3.09 10^6 /uL (4.18-5.48); Red Cell Distribution Width 20 % (10-15); White Blood Count 5.9 10^3/uL (3.5-10.8)
[2022-01-16 07:13] LABS: Calcium 8.7 mg/dL (8.6-10.3); Magnesium 1.8 mg/dL (1.9-2.7); Potassium 4.4 mmol/L (3.5-5.0); eGFR CKD-EPI 54.8 (>60)
[2022-01-16] MEDS ORDERED: Magnesium Sulfate 2 gm BAG 2 GM/50 ML BAG IVPB ONE (07:21)
[2022-01-16] MEDS ORDERED: Bumetanide IV 0.25 MG/ML 4 ml VIAL (1 mg) SLOW PUSH ONE (07:37)
[2022-01-16] MEDS: Mometasone/Formoter 200/5 MDI INH SCH ×2 (07:58→19:25)
[2022-01-16] MEDS: SPIRIVA Respimat (tiotropium) 2.5 mcg/inh Inhaler INH SCH (08:04)
[2022-01-16] MEDS: Aspirin EC 81 mg TAB.EC (enteric coated) PO SCH (08:13)
[2022-01-16] MEDS: Isosorbide Mononit ER 30mg TAB PO SCH (08:13)
[2022-01-16] MEDS: Insulin GLARGINE 100 un/ml 10 ml VIAL SUBCUT SCH (08:15)
[2022-01-16] MEDS: Nystatin TOP POWDER 15 GM BTL TOPICAL SCH ×2 (08:27→21:06)
[2022-01-16] MEDS ORDERED: Alteplase (CATHFLO) 2 MG VIAL IV ONE (09:02)
[2022-01-16] MEDS: Iron Sucrose 200 MG in NS 0.9% 100 ml BAG 100 ML IVPB SCH (10:54)
[2022-01-16 12:26] LABS: Urine Appearance Clear; Urine Bilirubin Negative (Negative); Urine Blood 1+ (Negative); Urine Color Yellow; Urine Glucose 1+(50 mg/dL) (Negative); Urine Ketones Negative (Negative); Urine Nitrite Negative (Negative); Urine Protein 2+(100 mg/dL) (Negative); Urine Specific Gravity 1.014 (1.002-1.030); Urine Urobilinogen Negative (Negative)
[2022-01-16 12:33] LABS: Urine Bacteria Absent (Absent); Urine Red Blood Cell Trace(0-2/hpf) (Absent); Urine Squamous Epithelial Cell Present (Absent); Urine White Blood Cell Trace(0-5/hpf) (Absent)
[2022-01-16] MEDS ORDERED: Vancomycin Random Level NOTE FOLLOW UP ONE (13:00)
[2022-01-17 05:20] LABS: ABS Basophils 0.1 10^3/ul (0-0.2); ABS Eosinophils 0.4 10^3/ul (0-0.6); ABS Lymphocytes 0.9 10^3/ul (1.0-4.8); ABS Monocytes 0.8 10^3/ul (0-0.8); ABS Neutrophils 4.8 10^3/ul (1.5-7.7); Hematocrit 28 % (42-52); Hemoglobin 8.7 g/dL (14.0-18.0); Lymphocyte % 12.4 %; Mean Corpuscular HGB Conc 31 g/dL (31-36); Mean Corpuscular Hemoglobin 29 pg (27-31); Mean Corpuscular Volume 94 fL (80-94); Platelet Count 174 10^3/uL (150-450); Red Blood Count 2.99 10^6 /uL (4.18-5.48); Red Cell Distribution Width 21 % (10-15)
[2022-01-17] MEDS ORDERED: Vancomycin 1,500 MG in NS 0.9% 250 ml 250 ML IVPB SCH (06:00)
[2022-01-17 06:59] LABS: Calcium 8.7 mg/dL (8.6-10.3); eGFR CKD-EPI 56.7 (>60)
[2022-01-17] MEDS ORDERED: Bumetanide IV 0.25 MG/ML 10 ml VIAL (2.5 mg) SLOW PUSH ONE (07:03)
[2022-01-17] MEDS: Mometasone/Formoter 200/5 MDI INH SCH ×2 (08:50→19:07)
[2022-01-17] MEDS: SPIRIVA Respimat (tiotropium) 2.5 mcg/inh Inhaler INH SCH (08:50)
[2022-01-17] MEDS: Iron Sucrose 200 MG in NS 0.9% 100 ml BAG 100 ML IVPB SCH (09:16)
[2022-01-17] MEDS: Insulin GLARGINE 100 un/ml 10 ml VIAL SUBCUT SCH (09:18)
[2022-01-17] MEDS: Isosorbide Mononit ER 30mg TAB PO SCH (09:21)
[2022-01-17] MEDS: Aspirin EC 81 mg TAB.EC (enteric coated) PO SCH (09:22)
[2022-01-17] MEDS: Nystatin TOP POWDER 15 GM BTL TOPICAL SCH ×2 (09:23→21:41)
[2022-01-17 11:37] LABS: C Reactive Protein 4.01 mg/L (<8.01)
[2022-01-18 04:53] LABS: ABS Eosinophils 0.3 10^3/ul (0-0.6); ABS Lymphocytes 0.7 10^3/ul (1.0-4.8); ABS Monocytes 0.9 10^3/ul (0-0.8); ABS Neutrophils 5.2 10^3/ul (1.5-7.7); Eosinophil % 4.8 %; Hematocrit 29 % (42-52); Hemoglobin 8.9 g/dL (14.0-18.0); Mean Corpuscular HGB Conc 31 g/dL (31-36); Mean Corpuscular Hemoglobin 29 pg (27-31); Mean Corpuscular Volume 94 fL (80-94); Mean Platelet Volume 7.7 fL (7.4-10.4); Platelet Count 178 10^3/uL (150-450); Red Blood Count 3.03 10^6 /uL (4.18-5.48); Red Cell Distribution Width 20 % (10-15); White Blood Count 7.1 10^3/uL (3.5-10.8)
[2022-01-18 05:09] LABS: Calcium 8.7 mg/dL (8.6-10.3); Potassium 3.7 mmol/L (3.5-5.0); eGFR CKD-EPI 59.7 (>60)
[2022-01-18] MEDS: Mometasone/Formoter 200/5 MDI INH SCH (07:11)
[2022-01-18] MEDS: SPIRIVA Respimat (tiotropium) 2.5 mcg/inh Inhaler INH SCH (07:13)
[2022-01-18] MEDS ORDERED: Bumetanide IV 0.25 MG/ML 4 ml VIAL (1 mg) SLOW PUSH ONE (08:10)
[2022-01-18] MEDS: Insulin GLARGINE 100 un/ml 10 ml VIAL SUBCUT SCH (08:26)
[2022-01-18] MEDS: Iron Sucrose 200 MG in NS 0.9% 100 ml BAG 100 ML IVPB SCH (08:27)
[2022-01-18] MEDS: Aspirin EC 81 mg TAB.EC (enteric coated) PO SCH (08:30)
[2022-01-18] MEDS: Isosorbide Mononit ER 30mg TAB PO SCH (08:31)
[2022-01-18] MEDS: Nystatin TOP POWDER 15 GM BTL TOPICAL SCH (08:32)
[2022-01-18 11:18] VITALS: BP 176/89
[2022-01-19] MEDS ORDERED: Vancomycin Trough Check NOTE FOLLOW UP ONE (05:30)
== END 2022-01-18 14:30 | DRG 194 ==
LOC: EDHOLD 19:13 → ED 19:13 → SUATTDRO 21:38 → MED 23:42
PROVIDERS: ADMIT Hospitalist; ATTEND Internal Medicine

== ENCOUNTER 2022-08-08 11:08 | Inpatient (IN) ==
[2022-08-08 11:39] LABS: Hematocrit 24.4 % (38-53); Hemoglobin 8.2 g/dL (13.2-16.3); Mean Corpuscular Hemoglobin 31.5 pg (27-33); Mean Corpuscular Hgb Conc 33.5 g/dL (31-36); Mean Platelet Volume 8.4 fL (7.5-11.2); Platelet Count 164 10^3/uL (150-450); Red Cell Distribution Width 15.1 % (12-17); White Blood Count 11.1 10^3/uL (3.6-10.2)
[2022-08-08 11:47] LABS: INR 1.75 (0.88-1.18)
[2022-08-08 12:04] LABS: Albumin 3.4 g/dL (3.2-5.2); Albumin/Globulin Ratio 1.3 (1-3); Calcium 8.8 mg/dL (8.6-10.3); Creatinine, Serum 1.48 mg/dL (0.67-1.17); Globulin 2.6 g/dL (2-4); Potassium 4.3 mmol/L (3.5-5.0); Total Bilirubin 0.7 mg/dL (0.2-1.0); eGFR CKD-EPI 53.5 (>60)
[2022-08-08 12:17] LABS: ABS Basophils 0.1 10^3/uL (0.0-0.1); ABS Eosinophils 0.7 10^3/uL (0.0-0.5); ABS Lymphocytes 0.5 10^3/uL (1.0-4.8); ABS Monocytes 1.6 10^3/uL (0.0-1.1); ABS Neutrophils 8.2 10^3/uL (1.5-7.6); Lymphocyte % 4.7 %
[2022-08-08 13:10] LABS: High Sensitivity Troponin 1 Hr 89 pg/mL (<20)
[2022-08-08 15:49] LABS: Magnesium 1.8 mg/dL (1.9-2.7)
[2022-08-08] MEDS ORDERED: Sulfur Hexaflouride MICROSPHR 25 MG VIAL ONE (15:56)
[2022-08-08 16:28] LABS: High Sensitivity Troponin 3 Hr 86 pg/mL (<20)
[2022-08-08] MEDS ORDERED: Al Hydrox/Mg Hydrox/Simet LIQ 30 ML UDC PO PRN (16:48)
[2022-08-08] MEDS ORDERED: Albuterol HFA INHALER 8 gm MDI INH PRN (16:48)
[2022-08-08] MEDS ORDERED: Senna TAB 8.6 mg TAB PO PRN (16:48)
[2022-08-08] MEDS ORDERED: Magnesium Sulfate 2 gm BAG 2 GM/50 ML BAG IVPB ONE (17:42)
[2022-08-08] MEDS: Mometasone/Formoter 200/5 MDI INH SCH (19:44)
[2022-08-08] MEDS: Insulin GLARGINE 100 un/ml 10 ml VIAL SUBCUT SCH (20:22)
[2022-08-08] MEDS: Nitroglycerin 0.6 mg TAB SL PRN (20:24)
[2022-08-08] MEDS: Dextran 70/Hypromellose Tears Eye Drops 15 ml BTL (for Artificials Tears) BOTH EYES SCH (20:31)
[2022-08-08 21:25] LABS: High Sensitivity Troponin 1 Hr 69 pg/mL (<20)
[2022-08-09 06:30] LABS: ABS Basophils 0.1 10^3/uL (0.0-0.1); ABS Eosinophils 0.6 10^3/uL (0.0-0.5); ABS Lymphocytes 0.6 10^3/uL (1.0-4.8); ABS Monocytes 1.1 10^3/uL (0.0-1.1); ABS Neutrophils 6.9 10^3/uL (1.5-7.6); Eosinophil % 6.4 %; Hematocrit 23.2 % (38-53); Hemoglobin 7.9 g/dL (13.2-16.3); Mean Corpuscular Hemoglobin 32.1 pg (27-33); Mean Corpuscular Hgb Conc 34.2 g/dL (31-36); Mean Corpuscular Volume 93.9 fL (80-97); Mean Platelet Volume 8.2 fL (7.5-11.2); Platelet Count 159 10^3/uL (150-450); Red Blood Count 2.47 10^6/uL (4.06-5.63); Red Cell Distribution Width 15.2 % (12-17); White Blood Count 9.3 10^3/uL (3.6-10.2)
[2022-08-09 06:48] LABS: Calcium 8.9 mg/dL (8.6-10.3); Creatinine, Serum 1.51 mg/dL (0.67-1.17); HDL Cholesterol 27.9 mg/dL; Magnesium 2.2 mg/dL (1.9-2.7); Potassium 4.2 mmol/L (3.5-5.0); eGFR CKD-EPI 52.2 (>60)
[2022-08-09] MEDS ORDERED: Aminophylline 25 MG/ML VIAL ONE (08:05)
[2022-08-09] MEDS ORDERED: Regadenoson 0.4 MG/5 ML SYRINGE ONE (08:05)
[2022-08-09] MEDS ORDERED: Isosorbide Mononit ER 30mg TAB PO SCH (09:00)
[2022-08-09] MEDS: Insulin GLARGINE 100 un/ml 10 ml VIAL SUBCUT SCH ×2 (10:18→21:54)
[2022-08-09] MEDS: Mometasone/Formoter 200/5 MDI INH SCH ×2 (11:24→20:17)
[2022-08-09] MEDS: SPIRIVA Respimat (tiotropium) 2.5 mcg/inh Inhaler INH SCH (11:24)
[2022-08-09] MEDS: Aspirin EC 81 mg TAB.EC (enteric coated) PO SCH (14:33)
[2022-08-09] MEDS ORDERED: Heparin 5000 UNITS/ML 1 mL VIAL SUBCUT SCH (15:00)
[2022-08-09] MEDS: Heparin DRIP 25,000 UNITS BAG 25,000 UNITS/500 ML BAG IV SCH (15:44)
[2022-08-09] MEDS: Dextran 70/Hypromellose Tears Eye Drops 15 ml BTL (for Artificials Tears) BOTH EYES SCH ×2 (17:16→21:43)
[2022-08-09] MEDS: Nitroglycerin 0.6 mg TAB SL PRN (17:56)
[2022-08-09 19:10] LABS: Hematocrit 23.9 % (38-53); Hemoglobin 8.1 g/dL (13.2-16.3); Mean Corpuscular Hemoglobin 31.2 pg (27-33); Mean Corpuscular Volume 91.8 fL (80-97); Mean Platelet Volume 8.4 fL (7.5-11.2); Platelet Count 166 10^3/uL (150-450); Red Cell Distribution Width 17.5 % (12-17); White Blood Count 9.2 10^3/uL (3.6-10.2)
[2022-08-09] MEDS: Heparin 5000 UNITS/ML 1 mL VIAL IV SCH (21:02)
[2022-08-10 03:04] LABS: Hematocrit 25.6 % (38-53); Hemoglobin 8.7 g/dL (13.2-16.3); Mean Corpuscular Hemoglobin 30.9 pg (27-33); Mean Corpuscular Hgb Conc 34.1 g/dL (31-36); Mean Corpuscular Volume 90.8 fL (80-97); Mean Platelet Volume 8.1 fL (7.5-11.2); Platelet Count 173 10^3/uL (150-450); Red Blood Count 2.82 10^6/uL (4.06-5.63); Red Cell Distribution Width 17.1 % (12-17); White Blood Count 8.2 10^3/uL (3.6-10.2)
[2022-08-10 03:48] LABS: Calcium 9.1 mg/dL (8.6-10.3)
[2022-08-10 04:03] LABS: Magnesium 2.2 mg/dL (1.9-2.7)
[2022-08-10 04:19] LABS: Creatinine, Serum 1.62 mg/dL (0.67-1.17)
[2022-08-10] MEDS: Heparin DRIP 25,000 UNITS BAG 25,000 UNITS/500 ML BAG IV SCH ×2 (07:28→18:57)
[2022-08-10] MEDS: Insulin GLARGINE 100 un/ml 10 ml VIAL SUBCUT SCH ×2 (07:58→20:20)
[2022-08-10] MEDS: Aspirin EC 81 mg TAB.EC (enteric coated) PO SCH (07:59)
[2022-08-10] MEDS: Isosorbide Mononit ER 60mg TAB PO SCH (08:00)
[2022-08-10] MEDS: Dextran 70/Hypromellose Tears Eye Drops 15 ml BTL (for Artificials Tears) BOTH EYES SCH ×2 (08:00→20:27)
[2022-08-10] MEDS: SPIRIVA Respimat (tiotropium) 2.5 mcg/inh Inhaler INH SCH (08:42)
[2022-08-10] MEDS: Mometasone/Formoter 200/5 MDI INH SCH ×2 (08:42→19:07)
[2022-08-10] MEDS: Heparin 5000 UNITS/ML 1 mL VIAL IV SCH (11:40)
[2022-08-10] MEDS: Lactated Ringers 1000 ml BAG 1,000 ML IV SCH (13:28)
[2022-08-10] MEDS: Polyethylene Glycol 3350 17 GM PACKET PO SCH (20:20)
[2022-08-10] MEDS: Nitroglycerin 0.6 mg TAB SL PRN ×4 (21:02→21:27)
[2022-08-11] MEDS: Heparin 5000 UNITS/ML 1 mL VIAL IV SCH (01:10)
[2022-08-11] MEDS: Lactated Ringers 1000 ml BAG 1,000 ML IV SCH (03:12)
[2022-08-11] MEDS: Heparin DRIP 25,000 UNITS BAG 25,000 UNITS/500 ML BAG IV SCH ×2 (06:19→16:55)
[2022-08-11 06:56] LABS: Hematocrit 23.9 % (38-53); Hemoglobin 8.2 g/dL (13.2-16.3); Mean Corpuscular Hemoglobin 31.4 pg (27-33); Mean Corpuscular Hgb Conc 34.2 g/dL (31-36); Mean Corpuscular Volume 91.7 fL (80-97); Mean Platelet Volume 8.3 fL (7.5-11.2); Platelet Count 182 10^3/uL (150-450); Red Blood Count 2.61 10^6/uL (4.06-5.63); Red Cell Distribution Width 16.9 % (12-17)
[2022-08-11] MEDS: SPIRIVA Respimat (tiotropium) 2.5 mcg/inh Inhaler INH SCH (07:16)
[2022-08-11] MEDS: Mometasone/Formoter 200/5 MDI INH SCH ×2 (07:17→22:56)
[2022-08-11 08:23] LABS: Calcium 8.5 mg/dL (8.6-10.3); Magnesium 2.1 mg/dL (1.9-2.7)
[2022-08-11 08:27] LABS: Creatinine, Serum 1.56 mg/dL (0.67-1.17); eGFR CKD-EPI 50.2 (>60)
[2022-08-11] MEDS: Insulin GLARGINE 100 un/ml 10 ml VIAL SUBCUT SCH (08:27)
[2022-08-11] MEDS: Aspirin EC 81 mg TAB.EC (enteric coated) PO SCH (08:44)
[2022-08-11] MEDS: Isosorbide Mononit ER 60mg TAB PO SCH (08:44)
[2022-08-11] MEDS ORDERED: Heparin 2 UNITS/ML 1000 mls 2,000 ML IV ONE (09:32)
[2022-08-11] MEDS ORDERED: Iohexol 350 (CONTRAST) 100 ML PAK IV ONE (09:33)
[2022-08-11] MEDS ORDERED: Lidocaine 1% MPF 5 ML VIAL ONE (09:33)
[2022-08-11] MEDS ORDERED: nitroGLYCERIN DRIP 25,000 MCG/250 ML BTL ONE (09:34)
[2022-08-11] MEDS ORDERED: niCARdipine 0.1MG/ML IVPREMIX 20 MG/200 ML BAG IV ONE (09:34)
[2022-08-11] MEDS ORDERED: Midazolam 5 mg/5 ml VIAL 1 mg/ml 5 ml VIAL (5 mg) ONE (09:47)
[2022-08-11] MEDS ORDERED: fentaNYL 100 mcg/2 ml 50 MCG/ML VIAL ONE (09:48)
[2022-08-11] MEDS ORDERED: Heparin 1,000 UNIT/ML 10 ml (10,000 UNITS) CATHLAB/DIALYSIS ONE (09:48)
[2022-08-11] MEDS ORDERED: Naloxone 0.4 mg VIAL 0.4 mg/ml 1 ml VIAL IV PUSH PRN (09:54)
[2022-08-11] MEDS ORDERED: Flumazenil 0.5 mg/5 ml 0.1 MG/ML 5 ml VIAL IV PRN (09:54)
[2022-08-11] MEDS ORDERED: Midazolam 10 mg/10 ml VIAL 1 mg/ml 10 ml VIAL (10 mg) IV SLOW PU ONE (09:54)
[2022-08-11] MEDS ORDERED: fentaNYL 100 mcg/2 ml 50 MCG/ML VIAL IV SLOW PU ONE (09:54)
[2022-08-11] MEDS ORDERED: Atropine 0.1 MG/ML 10 ml SYR (1 mg) ONE (10:11)
[2022-08-11] MEDS ORDERED: Heparin 5000 UNITS/ML 1 mL VIAL IV SCH (15:00)
[2022-08-11] MEDS: Dextran 70/Hypromellose Tears Eye Drops 15 ml BTL (for Artificials Tears) BOTH EYES SCH ×2 (16:25→21:22)
[2022-08-11] MEDS: Polyethylene Glycol 3350 17 GM PACKET PO SCH ×2 (16:42→20:25)
[2022-08-11] MEDS: Senna TAB 8.6 mg TAB PO SCH (20:27)
[2022-08-11] MEDS: Magnesium Hydroxide LIQ 30 ML UDC PO SCH (20:28)
[2022-08-11] MEDS ORDERED: Insulin GLARGINE 100 un/ml 10 ml VIAL SUBCUT SCH (21:00)
[2022-08-11 21:26] LABS: Glucose Confirmatory 419 mg/dL (70-100)
[2022-08-11] MEDS ORDERED: Dextrose 50% Syringe 50 ml 25 GM/50 ML SYRINGE IV PUSH PRN (21:55)
[2022-08-12] MEDS: Heparin DRIP 25,000 UNITS BAG 25,000 UNITS/500 ML BAG IV SCH ×3 (01:58→22:30)
[2022-08-12 04:09] LABS: Hematocrit 24.4 % (38-53); Hemoglobin 8.2 g/dL (13.2-16.3); Mean Corpuscular Hemoglobin 30.8 pg (27-33); Mean Corpuscular Hgb Conc 33.7 g/dL (31-36); Mean Corpuscular Volume 91.5 fL (80-97); Mean Platelet Volume 7.7 fL (7.5-11.2); Platelet Count 203 10^3/uL (150-450); Red Blood Count 2.66 10^6/uL (4.06-5.63); Red Cell Distribution Width 16.8 % (12-17); White Blood Count 8.4 10^3/uL (3.6-10.2)
[2022-08-12 05:09] LABS: Calcium 8.6 mg/dL (8.6-10.3); Potassium 4.5 mmol/L (3.5-5.0)
[2022-08-12 05:20] LABS: Creatinine, Serum 1.57 mg/dL (0.67-1.17); eGFR CKD-EPI 49.8 (>60)
[2022-08-12 05:21] LABS: Magnesium 1.9 mg/dL (1.9-2.7)
[2022-08-12] MEDS: SPIRIVA Respimat (tiotropium) 2.5 mcg/inh Inhaler INH SCH (07:23)
[2022-08-12] MEDS: Mometasone/Formoter 200/5 MDI INH SCH ×2 (07:24→19:18)
[2022-08-12] MEDS ORDERED: Magnesium Sulfate IV 1GM/100ML 1 GM/100 ML BAG IV ONE (07:28)
[2022-08-12] MEDS: Magnesium Hydroxide LIQ 30 ML UDC PO SCH ×2 (08:47→21:28)
[2022-08-12] MEDS: Insulin GLARGINE 100 un/ml 10 ml VIAL SUBCUT SCH ×2 (08:47→21:22)
[2022-08-12] MEDS: Aspirin EC 81 mg TAB.EC (enteric coated) PO SCH (08:50)
[2022-08-12] MEDS: Isosorbide Mononit ER 30mg TAB PO SCH (08:52)
[2022-08-12] MEDS: Polyethylene Glycol 3350 17 GM PACKET PO SCH ×2 (08:53→21:28)
[2022-08-12] MEDS: Dextran 70/Hypromellose Tears Eye Drops 15 ml BTL (for Artificials Tears) BOTH EYES SCH ×2 (11:38→21:28)
[2022-08-12] MEDS: Senna TAB 8.6 mg TAB PO SCH (21:24)
[2022-08-13 06:51] LABS: Hemoglobin 8.5 g/dL (13.2-16.3); Mean Corpuscular Hemoglobin 30.7 pg (27-33); Mean Corpuscular Hgb Conc 33.9 g/dL (31-36); Mean Corpuscular Volume 90.5 fL (80-97); Mean Platelet Volume 8.5 fL (7.5-11.2); Platelet Count 218 10^3/uL (150-450); Red Blood Count 2.76 10^6/uL (4.06-5.63); Red Cell Distribution Width 16.4 % (12-17); White Blood Count 8.7 10^3/uL (3.6-10.2)
[2022-08-13] MEDS: SPIRIVA Respimat (tiotropium) 2.5 mcg/inh Inhaler INH SCH (07:00)
[2022-08-13] MEDS: Mometasone/Formoter 200/5 MDI INH SCH ×2 (07:01→18:55)
[2022-08-13 07:34] LABS: Calcium 8.6 mg/dL (8.6-10.3); Creatinine, Serum 1.79 mg/dL (0.67-1.17); Magnesium 2.3 mg/dL (1.9-2.7); Potassium 4.5 mmol/L (3.5-5.0); eGFR CKD-EPI 42.6 (>60)
[2022-08-13] MEDS: Heparin DRIP 25,000 UNITS BAG 25,000 UNITS/500 ML BAG IV SCH ×2 (07:52→17:17)
[2022-08-13] MEDS: Isosorbide Mononit ER 30mg TAB PO SCH (09:03)
[2022-08-13] MEDS: Polyethylene Glycol 3350 17 GM PACKET PO SCH ×2 (09:04→21:38)
[2022-08-13] MEDS: Insulin GLARGINE 100 un/ml 10 ml VIAL SUBCUT SCH ×2 (09:05→21:39)
[2022-08-13] MEDS: Magnesium Hydroxide LIQ 30 ML UDC PO SCH ×2 (09:06→21:40)
[2022-08-13] MEDS: Aspirin EC 81 mg TAB.EC (enteric coated) PO SCH (09:10)
[2022-08-13] MEDS: Dextran 70/Hypromellose Tears Eye Drops 15 ml BTL (for Artificials Tears) BOTH EYES SCH ×2 (09:11→21:43)
[2022-08-13] MEDS ORDERED: Dextrose 50% Syringe 50 ml 25 GM/50 ML SYRINGE IV PUSH PRN (11:55)
[2022-08-13] MEDS ORDERED: Insulin GLARGINE 100 un/ml 10 ml VIAL SUBCUT SCH (21:00)
[2022-08-13] MEDS: Senna TAB 8.6 mg TAB PO SCH (21:40)
[2022-08-14] MEDS: Heparin DRIP 25,000 UNITS BAG 25,000 UNITS/500 ML BAG IV SCH ×3 (03:03→23:14)
[2022-08-14 06:33] LABS: Hematocrit 23.3 % (38-53); Hemoglobin 7.8 g/dL (13.2-16.3); Mean Corpuscular Hemoglobin 30.8 pg (27-33); Mean Corpuscular Hgb Conc 33.6 g/dL (31-36); Mean Corpuscular Volume 91.6 fL (80-97); Platelet Count 233 10^3/uL (150-450); Red Blood Count 2.55 10^6/uL (4.06-5.63); Red Cell Distribution Width 16.6 % (12-17); White Blood Count 10.1 10^3/uL (3.6-10.2)
[2022-08-14 07:03] LABS: Calcium 8.6 mg/dL (8.6-10.3); Magnesium 2.4 mg/dL (1.9-2.7); Potassium 4.6 mmol/L (3.5-5.0)
[2022-08-14 07:09] LABS: Creatinine, Serum 1.62 mg/dL (0.67-1.17)
[2022-08-14] MEDS: Mometasone/Formoter 200/5 MDI INH SCH ×2 (07:12→19:01)
[2022-08-14] MEDS: SPIRIVA Respimat (tiotropium) 2.5 mcg/inh Inhaler INH SCH (07:15)
[2022-08-14 07:49] LABS: ABS Basophils 0.1 10^3/uL (0.0-0.1); ABS Eosinophils 0.5 10^3/uL (0.0-0.5); ABS Lymphocytes 0.9 10^3/uL (1.0-4.8); ABS Monocytes 0.9 10^3/uL (0.0-1.1); ABS Neutrophils 7.7 10^3/uL (1.5-7.6); Eosinophil % 4.9 %; Lymphocyte % 8.6 %
[2022-08-14] MEDS: Isosorbide Mononit ER 30mg TAB PO SCH (09:07)
[2022-08-14] MEDS: Aspirin EC 81 mg TAB.EC (enteric coated) PO SCH (09:08)
[2022-08-14] MEDS: Magnesium Hydroxide LIQ 30 ML UDC PO SCH ×2 (09:08→23:14)
[2022-08-14] MEDS: Insulin GLARGINE 100 un/ml 10 ml VIAL SUBCUT SCH ×2 (09:09→20:57)
[2022-08-14] MEDS: Dextran 70/Hypromellose Tears Eye Drops 15 ml BTL (for Artificials Tears) BOTH EYES SCH ×2 (09:09→23:13)
[2022-08-14] MEDS: Polyethylene Glycol 3350 17 GM PACKET PO SCH ×2 (09:09→20:56)
[2022-08-14 14:10] LABS: Hematocrit 24.2 % (38-53); Hemoglobin 8.2 g/dL (13.2-16.3); Mean Corpuscular Hemoglobin 30.7 pg (27-33); Mean Corpuscular Hgb Conc 33.8 g/dL (31-36); Mean Corpuscular Volume 90.9 fL (80-97); Mean Platelet Volume 7.7 fL (7.5-11.2); Platelet Count 252 10^3/uL (150-450); Red Blood Count 2.66 10^6/uL (4.06-5.63); Red Cell Distribution Width 16.9 % (12-17); White Blood Count 10.1 10^3/uL (3.6-10.2)
[2022-08-14] MEDS: Senna TAB 8.6 mg TAB PO SCH (20:56)
[2022-08-15 06:16] LABS: Hematocrit 26.3 % (38-53); Hemoglobin 8.8 g/dL (13.2-16.3); Mean Corpuscular Hemoglobin 30.1 pg (27-33); Mean Corpuscular Hgb Conc 33.4 g/dL (31-36); Mean Corpuscular Volume 90.3 fL (80-97); Mean Platelet Volume 8.1 fL (7.5-11.2); Platelet Count 266 10^3/uL (150-450); Red Blood Count 2.92 10^6/uL (4.06-5.63); Red Cell Distribution Width 16.7 % (12-17); White Blood Count 10.1 10^3/uL (3.6-10.2)
[2022-08-15 06:58] LABS: Calcium 8.7 mg/dL (8.6-10.3); Creatinine, Serum 1.46 mg/dL (0.67-1.17); Magnesium 2.3 mg/dL (1.9-2.7); Potassium 4.6 mmol/L (3.5-5.0); eGFR CKD-EPI 54.4 (>60)
[2022-08-15] MEDS: SPIRIVA Respimat (tiotropium) 2.5 mcg/inh Inhaler INH SCH (07:06)
[2022-08-15] MEDS: Mometasone/Formoter 200/5 MDI INH SCH ×2 (07:06→19:46)
[2022-08-15] MEDS: Isosorbide Mononit ER 30mg TAB PO SCH (08:15)
[2022-08-15] MEDS: Aspirin EC 81 mg TAB.EC (enteric coated) PO SCH (08:15)
[2022-08-15] MEDS: Magnesium Hydroxide LIQ 30 ML UDC PO SCH (08:16)
[2022-08-15] MEDS: Dextran 70/Hypromellose Tears Eye Drops 15 ml BTL (for Artificials Tears) BOTH EYES SCH ×2 (08:16→21:30)
[2022-08-15] MEDS: Polyethylene Glycol 3350 17 GM PACKET PO SCH (08:16)
[2022-08-15] MEDS: Heparin DRIP 25,000 UNITS BAG 25,000 UNITS/500 ML BAG IV SCH ×2 (08:53→18:05)
[2022-08-15] MEDS: Insulin GLARGINE 100 un/ml 10 ml VIAL SUBCUT SCH ×2 (09:16→21:31)
[2022-08-15] MEDS ORDERED: Magnesium Hydroxide LIQ 30 ML UDC PO PRN (14:12)
[2022-08-15] MEDS ORDERED: Senna TAB 8.6 mg TAB PO PRN (14:12)
[2022-08-15] MEDS ORDERED: Polyethylene Glycol 3350 17 GM PACKET PO PRN (14:12)
[2022-08-15] MEDS: Benzocaine (plain) Lozenge 15 MG MT PRN (21:30)
[2022-08-16] MEDS: Heparin DRIP 25,000 UNITS BAG 25,000 UNITS/500 ML BAG IV SCH (04:21)
[2022-08-16 05:53] LABS: Hematocrit 25.7 % (38-53); Hemoglobin 8.6 g/dL (13.2-16.3); Mean Corpuscular Hemoglobin 30.3 pg (27-33); Mean Corpuscular Hgb Conc 33.3 g/dL (31-36); Mean Corpuscular Volume 90.9 fL (80-97); Mean Platelet Volume 8.2 fL (7.5-11.2); Platelet Count 271 10^3/uL (150-450); Red Blood Count 2.83 10^6/uL (4.06-5.63); Red Cell Distribution Width 16.5 % (12-17); White Blood Count 9.6 10^3/uL (3.6-10.2)
[2022-08-16 06:55] LABS: Creatinine, Serum 1.41 mg/dL (0.67-1.17); Potassium 4.6 mmol/L (3.5-5.0); eGFR CKD-EPI 56.7 (>60)
[2022-08-16 06:56] LABS: Calcium 8.8 mg/dL (8.6-10.3); Magnesium 2.2 mg/dL (1.9-2.7)
[2022-08-16] MEDS: SPIRIVA Respimat (tiotropium) 2.5 mcg/inh Inhaler INH SCH (07:18)
[2022-08-16] MEDS: Mometasone/Formoter 200/5 MDI INH SCH ×2 (07:21→19:36)
[2022-08-16] MEDS: Isosorbide Mononit ER 30mg TAB PO SCH (08:25)
[2022-08-16] MEDS: Aspirin EC 81 mg TAB.EC (enteric coated) PO SCH (08:25)
[2022-08-16] MEDS: Dextran 70/Hypromellose Tears Eye Drops 15 ml BTL (for Artificials Tears) BOTH EYES SCH ×2 (08:26→22:01)
[2022-08-16] MEDS ORDERED: fentaNYL 100 mcg/2 ml 50 MCG/ML VIAL ONE (09:43)
[2022-08-16] MEDS ORDERED: VERAPAMIL 2.5 MG/ML 2 ML VIAL ** 5 mg/2 ml ONE (09:43)
[2022-08-16] MEDS ORDERED: Heparin 1,000 UNIT/ML 10 ml (10,000 UNITS) CATHLAB/DIALYSIS ONE (09:43)
[2022-08-16] MEDS ORDERED: Midazolam 5 mg/5 ml VIAL 1 mg/ml 5 ml VIAL (5 mg) ONE (09:43)
[2022-08-16] MEDS ORDERED: nitroGLYCERIN DRIP 25,000 MCG/250 ML BTL ONE (09:44)
[2022-08-16] MEDS ORDERED: Iohexol 350 (CONTRAST) 200 ML MDV IV ONE (09:44)
[2022-08-16] MEDS ORDERED: Lidocaine 1% MPF 5 ML VIAL ONE (09:44)
[2022-08-16] MEDS ORDERED: Heparin 2 UNITS/ML 1000 mls 2,000 ML IV ONE (09:44)
[2022-08-16] MEDS ORDERED: NS 0.9% 1000 ml BAG 1,000 ML IV SCH (12:00)
[2022-08-16] MEDS: Insulin GLARGINE 100 un/ml 10 ml VIAL SUBCUT SCH ×3 (12:56→20:43)
[2022-08-16] MEDS: Benzocaine (plain) Lozenge 15 MG MT PRN (22:00)
[2022-08-17 05:58] LABS: Hemoglobin 8.4 g/dL (13.2-16.3); Mean Corpuscular Hgb Conc 33.8 g/dL (31-36); Mean Corpuscular Volume 91.6 fL (80-97); Mean Platelet Volume 7.5 fL (7.5-11.2); Platelet Count 258 10^3/uL (150-450); Red Blood Count 2.73 10^6/uL (4.06-5.63); White Blood Count 9.7 10^3/uL (3.6-10.2)
[2022-08-17 06:42] LABS: Calcium 8.8 mg/dL (8.6-10.3); Creatinine, Serum 1.26 mg/dL (0.67-1.17); Magnesium 1.9 mg/dL (1.9-2.7); Potassium 4.3 mmol/L (3.5-5.0); eGFR CKD-EPI 64.9 (>60)
[2022-08-17] MEDS: Mometasone/Formoter 200/5 MDI INH SCH ×2 (08:17→21:27)
[2022-08-17] MEDS: SPIRIVA Respimat (tiotropium) 2.5 mcg/inh Inhaler INH SCH (08:17)
[2022-08-17] MEDS ORDERED: Magnesium Sulfate IV 1GM/100ML 1 GM/100 ML BAG IV ONE (08:30)
[2022-08-17] MEDS: Insulin GLARGINE 100 un/ml 10 ml VIAL SUBCUT SCH ×2 (09:41→20:48)
[2022-08-17] MEDS: Isosorbide Mononit ER 30mg TAB PO SCH (09:44)
[2022-08-17] MEDS: Aspirin EC 81 mg TAB.EC (enteric coated) PO SCH (09:47)
[2022-08-17] MEDS: Dextran 70/Hypromellose Tears Eye Drops 15 ml BTL (for Artificials Tears) BOTH EYES SCH ×2 (09:48→20:51)
[2022-08-17 11:25] LABS: Rapid COVID-19 Molecular Undetected (Undetected)
[2022-08-17] MEDS ORDERED: Bumetanide IV 0.25 MG/ML 4 ml VIAL (1 mg) IV SLOW PU ONE (14:00)
[2022-08-18 06:43] LABS: Creatinine, Serum 1.24 mg/dL (0.67-1.17); Magnesium 1.7 mg/dL (1.9-2.7); Potassium 4.4 mmol/L (3.5-5.0); eGFR CKD-EPI 66.1 (>60)
[2022-08-18] MEDS ORDERED: Bumetanide IV 0.25 MG/ML 4 ml VIAL (1 mg) IV SLOW PU ONE ×2 (07:04→15:50)
[2022-08-18 07:13] LABS: Hematocrit 27.1 % (38-53); Hemoglobin 8.7 g/dL (13.2-16.3); Mean Corpuscular Hemoglobin 30.5 pg (27-33); Mean Corpuscular Volume 95.3 fL (80-97); Platelet Count 249 10^3/uL (150-450); Red Blood Count 2.85 10^6/uL (4.06-5.63); Red Cell Distribution Width 16.6 % (12-17); White Blood Count 7.9 10^3/uL (3.6-10.2)
[2022-08-18] MEDS ORDERED: Magnesium Sulfate IV 3 GM in NS 0.9% 100 ml BAG 100 ML IVPB ONE (07:30)
[2022-08-18] MEDS: SPIRIVA Respimat (tiotropium) 2.5 mcg/inh Inhaler INH SCH (07:33)
[2022-08-18] MEDS: Mometasone/Formoter 200/5 MDI INH SCH ×2 (07:33→19:00)
[2022-08-18] MEDS: Insulin GLARGINE 100 un/ml 10 ml VIAL SUBCUT SCH ×2 (08:27→22:04)
[2022-08-18] MEDS: Isosorbide Mononit ER 30mg TAB PO SCH (08:28)
[2022-08-18] MEDS: Aspirin EC 81 mg TAB.EC (enteric coated) PO SCH (08:29)
[2022-08-18] MEDS: Dextran 70/Hypromellose Tears Eye Drops 15 ml BTL (for Artificials Tears) BOTH EYES SCH ×2 (08:29→21:40)
[2022-08-18 15:20] LABS: Calcium 9.2 mg/dL (8.6-10.3); Creatinine, Serum 1.26 mg/dL (0.67-1.17); Potassium 4.4 mmol/L (3.5-5.0); eGFR CKD-EPI 64.9 (>60)
[2022-08-18 15:59] LABS: Magnesium 1.9 mg/dL (1.9-2.7)
[2022-08-18] MEDS ORDERED: Magnesium Sulfate IV 1GM/100ML 1 GM/100 ML BAG IV ONE (16:02)
[2022-08-19 07:39] VITALS: BP 136/48
[2022-08-19 07:40] LABS: Hematocrit 25.1 % (38-53); Hemoglobin 8.5 g/dL (13.2-16.3); Mean Corpuscular Hemoglobin 30.3 pg (27-33); Mean Corpuscular Hgb Conc 33.7 g/dL (31-36); Mean Corpuscular Volume 90.1 fL (80-97); Mean Platelet Volume 8.1 fL (7.5-11.2); Platelet Count 252 10^3/uL (150-450); Red Blood Count 2.79 10^6/uL (4.06-5.63); Red Cell Distribution Width 16.4 % (12-17); White Blood Count 9.9 10^3/uL (3.6-10.2)
[2022-08-19 07:57] LABS: Calcium 9.2 mg/dL (8.6-10.3); Creatinine, Serum 1.42 mg/dL (0.67-1.17); Magnesium 1.8 mg/dL (1.9-2.7); Potassium 4.4 mmol/L (3.5-5.0); eGFR CKD-EPI 56.2 (>60)
[2022-08-19] MEDS: Dextran 70/Hypromellose Tears Eye Drops 15 ml BTL (for Artificials Tears) BOTH EYES SCH (08:04)
[2022-08-19] MEDS: Insulin GLARGINE 100 un/ml 10 ml VIAL SUBCUT SCH (08:05)
[2022-08-19] MEDS: Isosorbide Mononit ER 30mg TAB PO SCH (08:08)
[2022-08-19] MEDS: Aspirin EC 81 mg TAB.EC (enteric coated) PO SCH (08:08)
[2022-08-19] MEDS ORDERED: Magnesium Sulfate 2 gm BAG 2 GM/50 ML BAG IVPB ONE (08:22)
[2022-08-19] MEDS: SPIRIVA Respimat (tiotropium) 2.5 mcg/inh Inhaler INH SCH (08:28)
[2022-08-19] MEDS: Mometasone/Formoter 200/5 MDI INH SCH (08:29)
== END 2022-08-19 10:28 | DRG 191 ==
LOC: EDHOLD 11:08 → ED 11:08 → SUATTDRO 15:18 → EDHOLD 17:12 → MEDTELE 17:46 → SUATTDRO 08-10 14:34
PROVIDERS: ADMIT Internal Medicine; ATTEND Internal Medicine